=== PATIENT | male | born 1955 | race Caucasian/White ===

== ENCOUNTER 2017-03-23 10:23 | Inpatient (IN) | payer OTHER, BC ==
--- NOTE | 2017-03-23 11:07 | PDOC ---
History of Present Illness - General Chief Complaint: Wound Infection Stated Complaint: PCP ADMIT Time Seen by Provider: 03/23/17 11:07 Past History - Past Medical History Allergies/Adverse Reactions: Allergies Allergy/AdvReac Type Severity Reaction Status Date / Time Sulfa (Sulfonamide Allergy Intermediate Rash Verified 03/23/17 10:40 Antibiotics) Home Medications: Ambulatory Orders Oxycodone HCl/Acetaminophen [Percocet 5-325 mg Tablet] 2 combo PO HS PRN Liraglutide [Victoza -] 1.8 mg SQ HS 12/11/11 Furosemide [Lasix -] 80 mg PO BID@0600,1800 #0 tablet 12/14/11 Glipizide [Glipizide Xl] 10 mg PO BID 02/27/13 Allopurinol [Zyloprim -] 300 mg PO DAILY #0 tablet 03/10/13 Insulin Glargine,Hum.rec.anlog [Lantus Solostar PEN -] 80 unit SQ DAILY Levothyroxine [Synthroid -] 100 mcg PO DAILY 01/26/14 Potassium Chloride [K-Dur -] 10 meq PO BID 04/10/14 Rivaroxaban [Xarelto -] 20 mg PO DAILY 10/30/14 Clopidogrel Bisulfate [Plavix -] 75 mg PO DAILY 09/04/15 Atorvastatin Ca [Lipitor] 80 mg PO HS 09/05/15 Lisinopril 10 mg PO DAILY 09/05/15 Atenolol 100 mg PO BID 07/24/16 Metolazone 2.5 mg PO DAILY 07/24/16 Collagenase Clostridium Hist. [Santyl] 1 applic TP DAILY #90 oint...g. 11/20/16 Mupirocin Cream [Bactroban 2% Cream -] 1 applic TP DAILY #1 tube 11/20/16 Collagenase Clostridium Hist. [Santyl] 1 applic TP DAILY #90 oint...g. 03/15/17 Collagenase Clostridium Hist. [Santyl] 1 applic TP DAILY #90 oint...g. 03/15/17 Collagenase Clostridium Hist. [Santyl] 1 applic TP DAILY #90 oint...g. 03/15/17 Anemia: No Asthma: No Cancer: No Cardiac Disorders: Yes (a.fib) CVA: No COPD: No CHF: Yes DVT: Yes Dementia: No Diabetes: Yes GI Disorders: No Disorders: No HTN: Yes Hypercholesterolemia: Yes Liver Disease: No Seizures: No Thyroid Disease: Yes (hypo) Other medical history: sleep apnea - Surgical History Abdominal Surgery: No Appendectomy: No Cardiac Surgery: Yes (x 2 stents 07/2015) Cholecystectomy: No Lung Surgery: No Neurologic Surgery: No Orthopedic Surgery: Yes (RT MIDDLE TOE(EXTRA BONE) PULL OUT) - Immunization History Immunization Up to Date: Yes - Suicide/Smoking/Psychosocial Hx Smoking Status: No Smoking History: Former smoker Have you smoked in the past 12 months: No Number of Cigarettes Smoked Daily: 0 If you are a former smoker, when did you quit?: 1992 Information on smoking cessation initiated: No 'Breaking Loose' booklet given: 09/05/15 Hx Alcohol Use: No Drug/Substance Use Hx: No Substance Use Type: None Hx Substance Use Treatment: No *Physical Exam - Vital Signs Last Vital Signs Temp Pulse Resp BP Pulse Ox 97.5 F L 85 22 114/38 94 L 03/23/17 10:40 03/23/17 10:40 03/23/17 10:40 03/23/17 10:40 03/23/17 10:40 Heart Score/ECG Review - ECG Impressions Comment:: 03/23/17 18:24 Rate of 81 irregularly irregular - afib qtc [address] wave changes ED Treatment Course - LABORATORY CBC & Chemistry Diagram: 03/23/17 12:30 03/23/17 12:30 Medical Decision Making - Medical Decision Making 03/23/17 18:24 The patient was seen and evaluated in conjunction with TOM Lemus under my direct supervision, ancillary studies were reviewed. I agree with the plan as outlined by TOM Lemus. *DC/Admit/Observation/Transfer Diagnosis at time of Disposition: Venous insufficiency, Venous ulcer - Referrals - Patient Instructions - Post Discharge Activity
--- NOTE | 2017-03-23 11:51 | PDOC ---
History of Present Illness - General Chief Complaint: Wound Infection Stated Complaint: PCP ADMIT Time Seen by Provider: 03/23/17 11:07 History Source: Patient Exam Limitations: No Limitations - History of Present Illness Initial Comments: 03/23/17 11:48 61-year-old male with history of obesity, venous stasis ulcers, diabetes, kidney disease, and CHF was sent by Dr. Harvey infectious disease physician for IV antibiotics secondary to infection to the lower extremities secondary to chronic venous ulcers. Patient denies fever, chills chest pain, shortness of breath, or weakness. Patient states this all by Dr. Hudson for primary care and is pending a PICC line for long-term antibiotics. Patient receives wound care once a week with last visit being this past Wednesday. Timing/Duration: constant Severity: mild, moderate Associated Symptoms: reports: denies symptoms Past History - Travel Traveled outside of the country in the last 30 days: No - Past Medical History Allergies/Adverse Reactions: Allergies Allergy/AdvReac Type Severity Reaction Status Date / Time Sulfa (Sulfonamide Allergy Intermediate Rash Verified 03/23/17 10:40 Antibiotics) Home Medications: Ambulatory Orders Oxycodone HCl/Acetaminophen [Percocet 5-325 mg Tablet] 2 combo PO HS PRN Liraglutide [Victoza -] 1.8 mg SQ HS 12/11/11 Furosemide [Lasix -] 80 mg PO BID@0600,1800 #0 tablet 12/14/11 Glipizide [Glipizide Xl] 10 mg PO BID 02/27/13 Allopurinol [Zyloprim -] 300 mg PO DAILY #0 tablet 03/10/13 Insulin Glargine,Hum.rec.anlog [Lantus Solostar PEN -] 80 unit SQ DAILY Levothyroxine [Synthroid -] 100 mcg PO DAILY 01/26/14 Potassium Chloride [K-Dur -] 10 meq PO BID 04/10/14 Rivaroxaban [Xarelto -] 20 mg PO DAILY 10/30/14 Clopidogrel Bisulfate [Plavix -] 75 mg PO DAILY 09/04/15 Atorvastatin Ca [Lipitor] 80 mg PO HS 09/05/15 Lisinopril 10 mg PO DAILY 09/05/15 Atenolol 100 mg PO BID 07/24/16 Metolazone 2.5 mg PO DAILY 07/24/16 Collagenase Clostridium Hist. [Santyl] 1 applic TP DAILY #90 oint...g. 11/20/16 Mupirocin Cream [Bactroban 2% Cream -] 1 applic TP DAILY #1 tube 11/20/16 Collagenase Clostridium Hist. [Santyl] 1 applic TP DAILY #90 oint...g. 03/15/17 Collagenase Clostridium Hist. [Santyl] 1 applic TP DAILY #90 oint...g. 03/15/17 Collagenase Clostridium Hist. [Santyl] 1 applic TP DAILY #90 oint...g. 03/15/17 Anemia: No Asthma: No Cancer: No Cardiac Disorders: Yes (a.fib) CVA: No COPD: No CHF: Yes DVT: Yes Dementia: No Diabetes: Yes GI Disorders: No Disorders: No HTN: Yes Hypercholesterolemia: Yes Liver Disease: No Seizures: No Thyroid Disease: Yes (hypo) Other medical history: sleep apnea - Surgical History Abdominal Surgery: No Appendectomy: No Cardiac Surgery: Yes (x 2 stents 07/2015) Cholecystectomy: No Lung Surgery: No Neurologic Surgery: No Orthopedic Surgery: Yes (RT MIDDLE TOE(EXTRA BONE) PULL OUT) - Immunization History Immunization Up to Date: Yes - Suicide/Smoking/Psychosocial Hx Smoking Status: No Smoking History: Former smoker Have you smoked in the past 12 months: No Number of Cigarettes Smoked Daily: 0 If you are a former smoker, when did you quit?: 1992 Information on smoking cessation initiated: No 'Breaking Loose' booklet given: 09/05/15 Hx Alcohol Use: No Drug/Substance Use Hx: No Substance Use Type: None Hx Substance Use Treatment: No Patient Lives Alone: No Lives with/in: spouse/SO Review of Systems - Review of Systems Able to Perform ROS?: Yes Constitutional: No: Symptoms Reported Musculoskeletal: No: Symptoms Reported Integumentary: Yes: Change in Color Neurological: No: Symptoms reported *Physical Exam - Vital Signs Last Vital Signs Temp Pulse Resp BP Pulse Ox 97.5 F L 85 22 114/38 94 L 03/23/17 10:40 03/23/17 10:40 03/23/17 10:40 03/23/17 10:40 03/23/17 10:40 - Physical Exam General Appearance: Yes: Nourished, Appropriately Dressed. No: Apparent Distress Respiratory/Chest: positive: Lungs Clear, Normal Breath Sounds. negative: Respiratory Distress, Accessory Muscle Use Cardiovascular: positive: Regular Rhythm, Regular Rate. negative: Murmur Extremity: positive: Pedal Edema (nonpitting bilateral) Integumentary: positive: Other (patient refusing to remove bandages for assessment) Neurologic: positive: Normal Mood/Affect, Motor Strength 5/5 (ambulatory) ED Treatment Course - LABORATORY CBC & Chemistry Diagram: 03/23/17 12:30 03/23/17 12:30 Medical Decision Making - Medical Decision Making 03/23/17 11:53 Patient sent in for admission as per recommendations from infectious disease physician doctor Ryan. Patient had normal vomit vitals here in the emergency room with no other acute findings or complaints. Patient ordered for septic workup. I spoke to Dr. Davis who recommended Zosyn 3.375 mg. Awaiting callback from Dr. Hudosn 03/23/17 12:[address] Hudson and states admitted to [facility]. Consultation also placed for interventional radiologist for PICC line insertion. 03/23/17 13:30 Laboratory Tests 09/07/15 09/09/15 03/23/17 05:30 06:00 12:30 WBC 9.1 Hgb 12.3 Hct 39.5 Plt Count 219 D Neutrophils % 82.2 Sodium Potassium 4.7 Chloride Anion Gap BUN 67 H Creatinine 2.5 H 2.4 H Creat Clearance w eGFR Random Glucose Lactic Acid Calcium Albumin 03/23/17 03/23/17 12:30 12:40 WBC Hgb Hct Plt Count Neutrophils % Sodium 137 Potassium 6.0 H D Chloride 106 Anion Gap 6 L BUN 60 H Creatinine 2.6 H Creat Clearance w eGFR 25.14 Random Glucose 143 H Lactic Acid 1.5 Calcium 8.2 L Albumin 3.0 L Receive phone call from laboratory of potassium. Laboratory states slightly hemolyzed. Patient pending EKG. Patient ordered for BMP. *DC/Admit/Observation/Transfer Diagnosis at time of Disposition: Venous insufficiency, Venous ulcer - Discharge Dispostion Admit: Yes - Referrals - Patient Instructions - Post Discharge Activity
[2017-03-23] MEDS ORDERED: PIPERACILLIN/TAZOB 3.375 GM 3.375 GM in DEXTROSE 5%-WATER - 50 ML IVPB SCH (12:00)
[2017-03-23] MEDS ORDERED: PICC LINE 8 ML FLUSH PROTOCOL IVPUSH PRN (12:12)
--- NOTE | 2017-03-23 12:30 | HP ---
Admitting History and Physical - Admission Chief Complaint: 61 y.o M was sent from [facility] after being seen by Dr Gotti- vascular surgeon and ID consult-Dr Bales for IV antibiotics due to non-heling and worsening draining ulcers RLE. History of Present Illness: Morbid obesity. ASHLEY. Bilateral PE. Pulmonary HTN-CTEPH?. CHF-mostly diastolic. ASHD. STEMI in 2016 with MICHAEL x2 placed at [place]. Chronic A.Fib-on a/c-Xarelto/ASA now. Gout. 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 Chronic DVT Right thigh, Stasis ulcers, edema. Chronic wound right Ankle/dobbs-RX at [facility]-groing multiple organisms. 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 No: Ascites, Cancer Hepatobiliary: Yes: Cholelithiasis Renal/: Yes: Renal Inusuff Heme/Onc: Yes: Anemia Infectious Disease: Yes: Other (RLE cellulitis.) Psych: Yes: Depression. No: Addictions, Anxiety, Bipolar, Panic, Psychosis, Schizophrenia, Other Musculoskeletal: Yes: Chronic low back pain Rheumatology: Yes: Gout Endocrine: Yes: Diabetes Mellitus, Hypothyroidism - Past Surgical History Past Surgical History: Yes: Stent - Smoking History Smoking history: Former smoker Have you smoked in the past 12 months: No Aproximately how many cigarettes per day: 0 If you are a former smoker, when did you quit?: 1992 - Alcohol/Substance Use Hx Alcohol Use: No History of Substance Use: reports: None - Social History ADL: Independent History of Recent Travel: No Home Medications - Allergies Allergies/Adverse Reactions: Allergies Allergy/AdvReac Type Severity Reaction Status Date / Time Sulfa (Sulfonamide Allergy Intermediate Rash Verified 03/23/17 10:40 Antibiotics) - Home Medications Home Medications: Ambulatory Orders Oxycodone HCl/Acetaminophen [Percocet 5-325 mg Tablet] 2 combo PO HS PRN Liraglutide [Victoza -] 1.8 mg SQ HS 12/11/11 Furosemide [Lasix -] 80 mg PO BID@0600,1800 #0 tablet 12/14/11 Glipizide [Glipizide Xl] 10 mg PO BID 02/27/13 Allopurinol [Zyloprim -] 300 mg PO DAILY #0 tablet 03/10/13 Insulin Glargine,Hum.rec.anlog [Lantus Solostar PEN -] 80 unit SQ DAILY Levothyroxine [Synthroid -] 100 mcg PO DAILY 01/26/14 Potassium Chloride [K-Dur -] 10 meq PO BID 04/10/14 Rivaroxaban [Xarelto -] 20 mg PO DAILY 10/30/14 Clopidogrel Bisulfate [Plavix -] 75 mg PO DAILY 09/04/15 Atorvastatin Ca [Lipitor] 80 mg PO HS 09/05/15 Lisinopril 10 mg PO DAILY 09/05/15 Atenolol 100 mg PO BID 07/24/16 Metolazone 2.5 mg PO DAILY 07/24/16 Collagenase Clostridium Hist. [Santyl] 1 applic TP DAILY #90 oint...g. 11/20/16 Mupirocin Cream [Bactroban 2% Cream -] 1 applic TP DAILY #1 tube 11/20/16 Collagenase Clostridium Hist. [Santyl] 1 applic TP DAILY #90 oint...g. 03/15/17 Collagenase Clostridium Hist. [Santyl] 1 applic TP DAILY #90 oint...g. 03/15/17 Collagenase Clostridium Hist. [Santyl] 1 applic TP DAILY #90 oint...g. 03/15/17 Family Disease History - Family Disease History Family History: Unremarkable Review of Systems - Review of Systems Constitutional: denies: Chills, Diaphoresis, Fever, Lethargy, Loss of Appetite, Malaise, Night Sweats, Unintentional Wgt. Loss, Weakness Eyes: denies: Blind Spots, Blurred Vision, Double Vision, Eye Pain, Recent Change in Vision HENT: denies: Ear Pain, Hearing Loss, Mouth Swelling, Throat Pain Neck: denies: Decreased ROM, Lumps Cardiovascular: reports: Shortness of Breath. denies: Chest Pain, Edema Respiratory: reports: Exercise Intolerance, Snoring, SOB, SOB on Exertion. denies: Cough, Hemoptysis, Orthopnea, Wheezing Gastrointestinal: denies: Abdominal Pain, Bloating, Diarrhea, Indigestion, Melena, Nausea, Rectal Bleeding, Vomiting Blood Genitourinary: denies: Burning, Discharge, Dysuria Breasts: reports: No Symptoms Reported Musculoskeletal: reports: Back Pain, Extremity Pain (RLE) Integumentary: reports: Wound (RLE) Endocrine: reports: No Symptoms Hematology/Lymphatic: reports: No Symptoms Psychiatric: reports: No Symptoms Physical Examination Vital Signs: Vital Signs Temperature 97.5 F L 03/23/17 10:40 Pulse Rate 85 03/23/17 10:40 Respiratory Rate 22 03/23/17 10:40 Blood Pressure 114/38 03/23/17 10:40 O2 Sat by Pulse Oximetry (%) 94 L 03/23/17 10:40 Constitutional: Yes: No Distress, Anxious, Obese Eyes: Yes: Conjunctiva Clear, EOM Intact HENT: Yes: Atraumatic, Normocephalic. No: Drooling Neck: Yes: Supple, Trachea Midline. No: Decreased ROM, Lymphadenopathy Cardiovascular: Yes: Pulse Irregular, S1, S2, Other. No: JVD, Murmur Respiratory: Yes: Regular. No: Accessory Muscle Use Gastrointestinal: Yes: Normal Bowel Sounds, Soft, Abdomen, Obese. No: Ascites, Palpable Mass, Tenderness, Tenderness, Epigastrium, Vomiting ...Rectal Exam: Yes: Deferred Renal/: No: Anuria, Bladder Distention Breast(s): Yes: WNL. No: Dimpling, Discharge from Nipple, Mass, Nipple Inversion Extremities: No: Cold, Cyanosis Edema: Yes Edema: LLE: 2+, RLE: Trace Integumentary: Yes: Venous Stasis Changes (Extensive ulcers RLE) Neurological: Yes: WNL ...Motor Strength: WNL Psychiatric: Yes: WNL Imaging - Results Chest X-ray: Report Reviewed, Image Reviewed Problem List - Problems (1) Venous ulcer Assessment/Plan: Wound care consult and local care. Comression to RLE wounds IV Zosyn as per ID Code(s): I87.8 - OTHER SPECIFIED DISORDERS OF VEINS (2) Atrial fibrillation Code(s): I48.91 - UNSPECIFIED ATRIAL FIBRILLATION Qualifiers: Atrial fibrillation type: chronic Qualified Code(s): I48.2 - Chronic atrial fibrillation (3) CHF (congestive heart failure) Assessment/Plan: Continue Furosemide, Metholazone. UVALDO. Code(s): I50.9 - HEART FAILURE, UNSPECIFIED Qualifiers: Congestive heart failure type: diastolic Congestive heart failure chronicity: chronic Qualified Code(s): I50.32 - Chronic diastolic (congestive ) heart failure (4) Chronic atrial fibrillation Assessment/Plan: Continue Xarelto BAB for weight control Code(s): I48.2 - CHRONIC ATRIAL FIBRILLATION (5) DVT (deep venous thrombosis) Assessment/Plan: Continue Xarelto Code(s): I82.409 - ACUTE EMBOLISM AND THOMBOS UNSP DEEP VN UNSP LOWER EXTREMITY Qualifiers: DVT location: lower extremity Affected thrombotic vein of extremity: femoral Chronicity: chronic Laterality: right Qualified Code(s): I82.511 - Chronic embolism and thrombosis of right femoral vein
[2017-03-23 12:43] LABS: BASO % 0.5 % (0-2.0); EOS % 1.7 % (0-4.5); HEMATOCRIT 39.5 % (35.4-49); HEMOGLOBIN 12.3 GM/dL (11.7-16.9); MCH 30.3 pg (25.7-33.7); MCHC 31.1 g/dl (32.0-35.9); MEAN CELL VOLUME 97.5 fl (80-96); MEAN PLT VOLUME 8.4 fl (7.5-11.1); MONO % 5.6 % (3.8-10.2); NEUT % 82.2 % (42.8-82.8); PLATELET COUNT 219 K/MM3 (134-434); RBC 4.05 M/mm3 (4.00-5.60); WHITE BLOOD COUNT 9.1 K/mm3 (4.0-10.0)
[2017-03-23] MEDS ORDERED: PIPERACILLIN/TAZOB 3.375 GM 3.375 GM in DEXTROSE 5%-WATER - 100 ML IVPB ONE (12:52)
[2017-03-23 13:16] LABS: BILIRUBIN,TOTAL 0.5 mg/dL (0.2-1.0); BLOOD UREA NITROGEN 60 mg/dL (7-18); CALCIUM 8.2 mg/dL (8.5-10.1); CHLORIDE 106 mmol/L (98-107); CO2 25 mmol/L (21-32); CREATININE 2.6 mg/dL (0.7-1.3); GLUCOSE,RANDOM 143 mg/dL (74-106); SGPT/ALT 23 U/L (12-78); TOT PROT 7.7 g/dl (6.4-8.2)
[2017-03-23 13:17] LABS: ALK PHOS 105 U/L (45-117)
[2017-03-23 13:24] LABS: ANION GAP 6 (8-16); SODIUM 137 mmol/L (136-145)
[2017-03-23 13:28] LABS: SGOT/AST 28 U/L (15-37)
[2017-03-23] MEDS: INSULIN SLIDING SCALE (NOVOLOG) 1 VIAL SQ SCH ×2 (16:15→21:58)
--- NOTE | 2017-03-23 16:29 | CON.ID ---
Consult Consult Specialty:: infectious diseases Reason for Consultation:: wound infection - History of Present Illness Chief Complaint: non healing ulcer of the rt leg History of Present Illness: 61-year-old male with history of obesity, venous stasis ulcers, diabetes, kidney disease, and CHF admitted to the the hospital because of no healing venous ulcer of the legs which is infected Patient has received abx in the past and inspite of that the wounds is infected Patient denies fever, chills chest pain, shortness of breath, or weakness. 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 No: Ascites, Cancer Hepatobiliary: Yes: Cholelithiasis Renal/: Yes: Renal Inusuff Infectious Disease: Yes: Other (RLE cellulitis.) Psych: Yes: Depression. No: Addictions, Anxiety, Bipolar, Panic, Psychosis, Schizophrenia, Other Musculoskeletal: Yes: Chronic low back pain Rheumatology: Yes: Gout Endocrine: Yes: Diabetes Mellitus, Hypothyroidism - Past Surgical History Past Surgical History: Yes: Stent - Alcohol/Substance Use Hx Alcohol Use: No History of Substance Use: reports: None - Smoking History Smoking history: Former smoker Have you smoked in the past 12 months: No Aproximately how many cigarettes per day: 0 If you are a former smoker, when did you quit?: 1992 - Social History ADL: Independent History of Recent Travel: No Home Medications - Allergies Allergies/Adverse Reactions: Allergies Allergy/AdvReac Type Severity Reaction Status Date / Time Sulfa (Sulfonamide Allergy Intermediate Rash Verified 03/23/17 10:40 Antibiotics) - Home Medications Home Medications: Ambulatory Orders Oxycodone HCl/Acetaminophen [Percocet 5-325 mg Tablet] 2 combo PO HS PRN Furosemide [Lasix -] 80 mg PO BID@0600,1800 #0 tablet 12/14/11 Glipizide [Glipizide Xl] 10 mg PO BID 02/27/13 Insulin Glargine,Hum.rec.anlog [Lantus Solostar PEN -] 80 unit SQ DAILY Levothyroxine [Synthroid -] 100 mcg PO DAILY 01/26/14 Potassium Chloride [K-Dur -] 10 meq PO BID 04/10/14 Rivaroxaban [Xarelto -] 20 mg PO DAILY 10/30/14 Atorvastatin Ca [Lipitor] 80 mg PO HS 09/05/15 Lisinopril 10 mg PO DAILY 09/05/15 Atenolol 100 mg PO BID 07/24/16 Metolazone 2.5 mg PO DAILY 07/24/16 Mupirocin Cream [Bactroban 2% Cream -] 1 applic TP DAILY #1 tube 11/20/16 Review of Systems - Review of Systems Constitutional: reports: No Symptoms Eyes: reports: No Symptoms HENT: reports: No Symptoms Neck: reports: No Symptoms Cardiovascular: reports: No Symptoms Respiratory: reports: No Symptoms Gastrointestinal: reports: No Symptoms Genitourinary: reports: No Symptoms Musculoskeletal: reports: Extremity Pain Integumentary: reports: Wound (non healing infected wound) Neurological: reports: No Symptoms Endocrine: reports: No Symptoms Hematology/Lymphatic: reports: No Symptoms Psychiatric: reports: No Symptoms Physical Exam Vital Signs: Vital Signs Temperature 97.5 F L 03/23/17 10:40 Pulse Rate 85 03/23/17 10:40 Respiratory Rate 22 03/23/17 10:40 Blood Pressure 114/38 03/23/17 10:40 O2 Sat by Pulse Oximetry (%) 94 L 03/23/17 10:40 Constitutional: Yes: Well Nourished, Obese, Other Eyes: Yes: Conjunctiva Clear HENT: Yes: Atraumatic, Normocephalic Neck: Yes: Supple, Trachea Midline Cardiovascular: Yes: Pulse Irregular, S1, S2 Respiratory: Yes: Regular, Poor Air Entry Gastrointestinal: Yes: Normal Bowel Sounds, Soft Musculoskeletal: Yes: Other Extremities: Yes: Other Wound/Incision: Yes: Reddened, Bleeding, Other Neurological: Yes: Alert, Oriented Psychiatric: Yes: Alert, Oriented Labs: CBC, BMP 03/23/17 12:30 03/23/17 12:30 Imaging - Results Chest X-ray: Report Reviewed, Image Reviewed Assessment/Plan Problem List - Problems (1) Venous ulcer Code(s): I87.8 - OTHER SPECIFIED DISORDERS OF VEINS (2) Atrial fibrillation Code(s): I48.91 - UNSPECIFIED ATRIAL FIBRILLATION Qualifiers: Atrial fibrillation type: chronic Qualified Code(s): I48.2 - Chronic atrial fibrillation (3) CHF (congestive heart failure) Assessment/Plan: Continue Furosemide, Metholazone. UVALDO. Code(s): I50.9 - HEART FAILURE, UNSPECIFIED Qualifiers: Congestive heart failure type: diastolic Congestive heart failure chronicity: chronic Qualified Code(s): I50.32 - Chronic diastolic (congestive ) heart failure (4) Chronic atrial fibrillation Code(s): I48.2 - CHRONIC ATRIAL FIBRILLATION (5) DVT (deep venous thrombosis) Code(s): I82.409 - ACUTE EMBOLISM AND THOMBOS UNSP DEEP VN UNSP LOWER EXTREMITY Qualifiers: DVT location: lower extremity Affected thrombotic vein of extremity: femoral Chronicity: chronic Laterality: right Qualified Code(s): I82.511 - Chronic embolism and thrombosis of right femoral vein i have seen the cx which wer done recently plan will start patient on iv abx wound care elevation of the leg rest as per wound care
[2017-03-23] MEDS ORDERED: INSULIN (NOVOLOG) ASPART 100 UNITS/ML 10ML VIAL ONE (17:00)
[2017-03-23] MEDS ORDERED: FUROSEMIDE 40 MG TABLET (FP) ONE (17:22)
[2017-03-23] MEDS: PIPERACILLIN/TAZOB 2.25 GM 2.25 GM/50 ML BAG IVPB SCH (18:45)
[2017-03-23] MEDS ORDERED: SODIUM POLYSTYRENE SULFONATE 15 GM/60 ML BOTTLE PO ONE (20:00)
[2017-03-23] MEDS: FUROSEMIDE 40 MG TABLET (FP) PO SCH (20:15)
[2017-03-23] MEDS: ATORVASTATIN CA 80 MG TABLET (FP) PO SCH (21:29)
[2017-03-23 21:31] LABS: URINE APPEARANCE CLEAR; URINE BILIRUBIN NEGATIVE (NEGATIVE); URINE BLOOD NEGATIVE (NEGATIVE); URINE COLOR STRAW; URINE GLUCOSE (UA) NEGATIVE (NEGATIVE); URINE KETONE NEGATIVE (NEGATIVE); URINE LEUK ESTERASE NEGATIVE (NEGATIVE); URINE NITRITE NEGATIVE (NEGATIVE); URINE UROBILINOGEN NEGATIVE mg/dL (0.2-1.0)
[2017-03-23 21:32] LABS: URINE PROTEIN 1+ (NEGATIVE)
[2017-03-23 21:41] LABS: EPI CELLS RARE /HPF (FEW); URINE MUCUS RARE
[2017-03-23] MEDS: ATENOLOL 50 MG TABLET (FP) PO SCH (21:57)
[2017-03-23] MEDS: INSULIN DETEMIR 100 UNITS/ML MDV SQ SCH (21:58)
[2017-03-23] MEDS ORDERED: POTASSIUM CHLORIDE TABS 20 MEQ TABLET.ER (FP) PO SCH (22:00)
[2017-03-23] MEDS: LIRAGLUTIDE 0.6 MG/0.1 ML PEN.INJCTR SQ SCH (22:04)
[2017-03-23] MEDS: oxyCODONE HCL 5 MG TABLET PO PRN (22:08)
[2017-03-23] MEDS: ACETAMINOPHEN 325 MG TABLET (FP) PO PRN (22:11)
[2017-03-23 23:48] VITALS: BMI 60.6
[2017-03-24] MEDS: PIPERACILLIN/TAZOB 2.25 GM 2.25 GM/50 ML BAG IVPB SCH ×3 (01:19→18:23)
[2017-03-24] MEDS: INSULIN SLIDING SCALE (NOVOLOG) 1 VIAL SQ SCH ×4 (06:13→22:55)
[2017-03-24] MEDS: INSULIN DETEMIR 100 UNITS/ML MDV SQ SCH ×2 (06:15→22:58)
[2017-03-24] MEDS: LEVOTHYROXINE NA 100 MCG TABLET (FP) PO SCH (06:20)
[2017-03-24] MEDS: FUROSEMIDE 40 MG TABLET (FP) PO SCH ×2 (07:23→18:26)
[2017-03-24] MEDS ORDERED: PNEUMOC 13-VAL CONJ-DIP CRM/PF 0.5 ML DISP.SYRIN IM ONE ×2 (07:29→15:45)
--- NOTE | 2017-03-24 07:32 | PN ---
Progress Note, Physician Chief Complaint: NAD, had diarrhea last night after Kayexalate. History of Present Illness: Morbid obesity. ASHLEY. Bilateral PE. Pulmonary HTN-CTEPH?. CHF-mostly diastolic. ASHD. STEMI in 2016 with MICHAEL x2 placed at [place]. Chronic A.Fib-on a/c-Xarelto/ASA now. Gout. 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 Chronic DVT Right thigh, Stasis ulcers, edema. Chronic wound right Ankle/dobbs-RX at [facility]-groing multiple organisms. - Current Medication List Current Medications: Active Medications Acetaminophen (Tylenol -) 650 mg PO HS PRN PRN Reason: BILATERAL LOWER LEG PAIN Last Admin: 03/23/17 22:11 Dose: 650 mg Allopurinol (Zyloprim -) 300 mg PO DAILY NEIL Aspirin (Asa -) 81 mg PO DAILY NEIL Atenolol (Tenormin -) 100 mg PO BID [facility] Last Admin: 03/23/17 21:57 Dose: 100 mg Atorvastatin Calcium (Lipitor -) 80 mg PO HS [facility] Last Admin: 03/23/17 21:29 Dose: 80 mg Collagenase (Santyl -) 1 applic TP DAILY [facility] Furosemide (Lasix -) 80 mg PO BID@0600,1800 [facility] Last Admin: 03/24/17 07:23 Dose: 80 mg IV Flush (Picc Line Flush) 8 ml IVPUSH PRN PRN PRN Reason: Protocol Piperacillin/Tazobactam/Dextrose (Zosyn 2.25gm Ivpb (Premix)) 2.25 gm in 50 mls @ 100 mls/hr IVPB Q8H-IV NEIL PRN Reason: Protocol Last Admin: 03/24/17 01:19 Dose: 100 mls/hr Insulin Aspart (Novolog Vial Sliding Scale -) 1 vial SQ ACHS NEIL PRN Reason: Protocol Last Admin: 03/24/17 06:13 Dose: Not Given Insulin Detemir (Levemir Vial) 30 units SQ BID@0700,2200 [facility] Last Admin: 03/24/17 06:15 Dose: 30 units Levothyroxine Sodium (Synthroid -) 100 mcg PO ACBK [facility] Last Admin: 03/24/17 06:20 Dose: 100 mcg Liraglutide (Victoza -) 1.8 mg SQ HS [facility] Last Admin: 03/23/17 22:04 Dose: 1.8 mg Metolazone (Zaroxolyn -) 2.5 mg PO DAILY@1730 [facility] Mupirocin (Bactroban 2% Cream -) 1 applic TP DAILY [facility] Oxycodone HCl (Roxicodone -) 10 mg PO HS PRN PRN Reason: BILATERAL LOWER LEG PAIN Last Admin: 03/23/17 22:08 Dose: 10 mg Pneumococcal 13-Valent Conj Vacc (Prevnar 13 Syringe -) 0.5 ml IM .ONCE ONE Stop: 03/24/17 07:30 Rivaroxaban (Xarelto -) 20 mg PO DAILY@1730 [facility] - Objective Vital Signs: Vital Signs Temperature 98.3 F 03/24/17 06:00 Pulse Rate 74 03/24/17 06:00 Respiratory Rate 20 03/24/17 06:00 Blood Pressure 87/55 03/24/17 06:26 O2 Sat by Pulse Oximetry (%) 95 03/23/17 20:35 Constitutional: Yes: No Distress, Calm. No: Anxious Eyes: Yes: Conjunctiva Clear, EOM Intact HENT: Yes: Atraumatic, Normocephalic. No: Drooling Neck: Yes: Supple, Trachea Midline. No: Lymphadenopathy Cardiovascular: Yes: Pulse Irregular, Murmur, S1, S2. No: JVD Respiratory: Yes: Regular, CTA Bilaterally. No: Accessory Muscle Use Gastrointestinal: Yes: Normal Bowel Sounds, Soft, Abdomen, Obese. No: Ascites ...Rectal Exam: Yes: Deferred Genitourinary: No: Anuria Musculoskeletal: Yes: Back Pain Extremities: No: Calf Tenderness, Cold, Deformity Edema: Yes Edema: LLE: 2+, RLE: 3+ Peripheral Pulses WNL: No Integumentary: Yes: Venous Stasis Changes (Right LE extensive anterior and lateral dobbs ulceration with wheeping. B/L LE below the knee venous stasis changes) Neurological: Yes: Alert, Oriented. No: Aphasia, Asterixis, Lethargy, Loss of Sensation ...Motor Strength: WNL Psychiatric: Yes: WNL Labs: CBC, BMP 03/23/17 12:30 03/23/17 12:30 Problem List - Problems (1) Venous ulcer Assessment/Plan: Wound care consult and local care. UVALDO bandage for compression. Comression to RLE wounds IV Zosyn as per ID Code(s): I87.8 - OTHER SPECIFIED DISORDERS OF VEINS (2) Atrial fibrillation Code(s): I48.91 - UNSPECIFIED ATRIAL FIBRILLATION Qualifiers: Atrial fibrillation type: chronic Qualified Code(s): I48.2 - Chronic atrial fibrillation (3) CHF (congestive heart failure) Assessment/Plan: Continue Furosemide, Metholazone. UVALDO. Code(s): I50.9 - HEART FAILURE, UNSPECIFIED Qualifiers: Congestive heart failure type: diastolic Congestive heart failure chronicity: chronic Qualified Code(s): I50.32 - Chronic diastolic (congestive ) heart failure (4) Chronic atrial fibrillation Assessment/Plan: Continue Xarelto BAB for weight control Code(s): I48.2 - CHRONIC ATRIAL FIBRILLATION (5) DVT (deep venous thrombosis) Assessment/Plan: Continue Xarelto Code(s): I82.409 - ACUTE EMBOLISM AND THOMBOS UNSP DEEP VN UNSP LOWER EXTREMITY Qualifiers: DVT location: lower extremity Affected thrombotic vein of extremity: femoral Chronicity: chronic Laterality: right Qualified Code(s): I82.511 - Chronic embolism and thrombosis of right femoral vein
[2017-03-24 09:09] LABS: BASO % 0.5 % (0-2.0); EOS % 3.2 % (0-4.5); HEMATOCRIT 36.9 % (35.4-49); HEMOGLOBIN 11.5 GM/dL (11.7-16.9); MCH 30.5 pg (25.7-33.7); MCHC 31.3 g/dl (32.0-35.9); MEAN CELL VOLUME 97.4 fl (80-96); MEAN PLT VOLUME 8.4 fl (7.5-11.1); MONO % 8.1 % (3.8-10.2); NEUT % 72.2 % (42.8-82.8); PLATELET COUNT 191 K/MM3 (134-434); RBC 3.78 M/mm3 (4.00-5.60); RDW 16.5 % (11.9-15.9); WHITE BLOOD COUNT 8.2 K/mm3 (4.0-10.0)
[2017-03-24 09:16] LABS: ALBUMIN 2.8 g/dl (3.4-5.0); ANION GAP 12 (8-16); BILIRUBIN,TOTAL 0.5 mg/dL (0.2-1.0); BLOOD UREA NITROGEN 63 mg/dL (7-18); CALCIUM 8.6 mg/dL (8.5-10.1); CHLORIDE 106 mmol/L (98-107); CO2 24 mmol/L (21-32); CREATININE 2.6 mg/dL (0.7-1.3); GLUCOSE,RANDOM 84 mg/dL (74-106); MAGNESIUM 1.9 mg/dL (1.8-2.4); PHOSPHOROUS 3.7 mg/dL (2.5-4.9); POTASSIUM 4.4 mmol/L (3.5-5.1); SGOT/AST 9 U/L (15-37); SGPT/ALT 19 U/L (12-78); SODIUM 142 mmol/L (136-145); TOT PROT 7.1 g/dl (6.4-8.2)
[2017-03-24 09:17] LABS: ALK PHOS 93 U/L (45-117)
[2017-03-24] MEDS ORDERED: LISINOPRIL 10 MG TABLET (FP) PO SCH (10:00)
[2017-03-24] MEDS ORDERED: INSULIN GLARGINE HUM REC ANLOG 80 UNIT SQ SCH (10:00)
--- NOTE | 2017-03-24 10:17 | PN ---
Progress Note (short form) - Note Progress Note: WOUND CARE / VASCULAR SURGERY - Dr. Gotti Patient is very well know to our service. Seen by Dr Gotti last week for known non-healing/worsening of his chronic venous ulcers. Sent in or IV ABX and wound care. Cont with santyl dressing changes. Elevate legs while seated in chair. Dressing changes ordered Cont medical mangement. Light UVALDO compression dressing Above discussed with Dr. Gotti and agrees.
[2017-03-24] MEDS: ATENOLOL 50 MG TABLET (FP) PO SCH ×2 (10:45→22:56)
[2017-03-24] MEDS: ASPIRIN 81 MG CHEWABLE TABLETS PO SCH (10:45)
[2017-03-24] MEDS: ALLOPURINOL 300 MG TABLET (FP) PO SCH (10:46)
[2017-03-24] MEDS: COLLAGENASE CLOSTRIDIUM HIST. 30 GRAMS TUBE TP SCH (11:24)
[2017-03-24] MEDS: MUPIROCIN CA 2% TOPICAL CREAM 15 GM TUBE TP SCH (11:24)
--- NOTE | 2017-03-24 13:10 | EKG ---
Test Reason : Blood Pressure : / mmHG Vent. Rate : 081 BPM Atrial Rate : 096 BPM P-R Int : 000 ms QRS Dur : 094 ms QT Int : 404 ms P-R-T Axes : 000 071 -61 degrees QTc Int : 469 ms ATRIAL FIBRILLATION LOW VOLTAGE QRS NONSPECIFIC T WAVE ABNORMALITY PROLONGED QT ABNORMAL ECG WHEN COMPARED WITH ECG OF 05-SEP-2015 08:41, NONSPECIFIC T WAVE ABNORMALITY NOW EVIDENT IN LATERAL LEADS Confirmed by ASIA SORTO, LOLA ([id number]) on 03/24/2017 1:09:57 PM Referred By: Confirmed By:LOLA BETANCOURT MD
--- NOTE | 2017-03-24 15:56 | PN ---
Progress Note, Physician History of Present Illness: stable no new issues feels better in room - Current Medication List Current Medications: Active Medications Acetaminophen (Tylenol -) 650 mg PO HS PRN PRN Reason: BILATERAL LOWER LEG PAIN Last Admin: 03/23/17 22:11 Dose: 650 mg Allopurinol (Zyloprim -) 300 mg PO DAILY [facility] Last Admin: 03/24/17 10:46 Dose: 300 mg Aspirin (Asa -) 81 mg PO DAILY [facility] Last Admin: 03/24/17 10:45 Dose: 81 mg Atenolol (Tenormin -) 100 mg PO BID [facility] Last Admin: 03/24/17 10:45 Dose: 100 mg Atorvastatin Calcium (Lipitor -) 80 mg PO HS [facility] Last Admin: 03/23/17 21:29 Dose: 80 mg Collagenase (Santyl -) 1 applic TP DAILY [facility] Last Admin: 03/24/17 11:24 Dose: 1 applic Furosemide (Lasix -) 80 mg PO BID@0600,1800 [facility] Last Admin: 03/24/17 07:23 Dose: 80 mg IV Flush (Picc Line Flush) 8 ml IVPUSH PRN PRN PRN Reason: Protocol Piperacillin/Tazobactam/Dextrose (Zosyn 2.25gm Ivpb (Premix)) 2.25 gm in 50 mls @ 100 mls/hr IVPB Q8H-IV NEIL PRN Reason: Protocol Last Admin: 03/24/17 10:45 Dose: 100 mls/hr Insulin Aspart (Novolog Vial Sliding Scale -) 1 vial SQ ACHS NEIL PRN Reason: Protocol Last Admin: 03/24/17 11:14 Dose: Not Given Insulin Detemir (Levemir Vial) 30 units SQ BID@0700,2200 [facility] Last Admin: 03/24/17 06:15 Dose: 30 units Levothyroxine Sodium (Synthroid -) 100 mcg PO ACBK [facility] Last Admin: 03/24/17 06:20 Dose: 100 mcg Liraglutide (Victoza -) 1.8 mg SQ HS [facility] Last Admin: 03/23/17 22:04 Dose: 1.8 mg Metolazone (Zaroxolyn -) 2.5 mg PO DAILY@1730 [facility] Mupirocin (Bactroban 2% Cream -) 1 applic TP DAILY [facility] Last Admin: 03/24/17 11:24 Dose: 1 applic Oxycodone HCl (Roxicodone -) 10 mg PO HS PRN PRN Reason: BILATERAL LOWER LEG PAIN Last Admin: 03/23/17 22:08 Dose: 10 mg Rivaroxaban (Xarelto -) 20 mg PO DAILY@1730 [facility] - Objective Vital Signs: Vital Signs Temperature 97.3 F L 03/24/17 15:50 Pulse Rate 82 03/24/17 15:50 Respiratory Rate 18 03/24/17 15:50 Blood Pressure 118/67 03/24/17 15:50 O2 Sat by Pulse Oximetry (%) 95 03/23/17 20:35 Constitutional: Yes: No Distress, Calm Cardiovascular: Yes: Pulse Irregular, S1, S2 Respiratory: Yes: Regular Gastrointestinal: Yes: Normal Bowel Sounds, Soft Musculoskeletal: Yes: WNL Extremities: Yes: Other Wound/Incision: Yes: Dressing Dry and Intact Neurological: Yes: Alert, Oriented Psychiatric: Yes: Alert, Oriented Labs: CBC, BMP 03/24/17 07:10 03/24/17 07:10 Assessment/Plan Problem List - Problems (1) Venous ulcer Code(s): I87.8 - OTHER SPECIFIED DISORDERS OF VEINS (2) Atrial fibrillation Code(s): I48.91 - UNSPECIFIED ATRIAL FIBRILLATION Qualifiers: Atrial fibrillation type: chronic Qualified Code(s): I48.2 - Chronic atrial fibrillation (3) CHF (congestive heart failure) Assessment/Plan: Continue Furosemide, Metholazone. UVALDO. Code(s): I50.9 - HEART FAILURE, UNSPECIFIED Qualifiers: Congestive heart failure type: diastolic Congestive heart failure chronicity: chronic Qualified Code(s): I50.32 - Chronic diastolic (congestive ) heart failure (4) Chronic atrial fibrillation Code(s): I48.2 - CHRONIC ATRIAL FIBRILLATION (5) DVT (deep venous thrombosis) Code(s): I82.409 - ACUTE EMBOLISM AND THOMBOS UNSP DEEP VN UNSP LOWER EXTREMITY Qualifiers: DVT location: lower extremity Affected thrombotic vein of extremity: femoral Chronicity: chronic Laterality: right Qualified Code(s): I82.511 - Chronic embolism and thrombosis of right femoral vein i have seen the cx which wer done recently plan continue iv abx elevation of the leg wound care rest as per primary team
[2017-03-24] MEDS: METOLAZONE 2.5 MG TABLET (FP) PO SCH (16:54)
[2017-03-24] MEDS: RIVAROXABAN 20 MG TABLET PO SCH (16:55)
[2017-03-24] MEDS ORDERED: PT OWN MED DRAWER 7, Y5N ONE ×2 (22:30→22:34)
[2017-03-24] MEDS: ATORVASTATIN CA 80 MG TABLET (FP) PO SCH (22:56)
[2017-03-24] MEDS: LIRAGLUTIDE 0.6 MG/0.1 ML PEN.INJCTR SQ SCH (22:57)
[2017-03-25] MEDS ORDERED: PT OWN MED DRAWER 7, Y5N ONE ×3 (02:28→17:36)
[2017-03-25] MEDS: PIPERACILLIN/TAZOB 2.25 GM 2.25 GM/50 ML BAG IVPB SCH ×3 (02:36→17:39)
[2017-03-25] MEDS: FUROSEMIDE 40 MG TABLET (FP) PO SCH ×2 (06:11→18:29)
[2017-03-25] MEDS: INSULIN DETEMIR 100 UNITS/ML MDV SQ SCH ×2 (06:55→21:36)
[2017-03-25] MEDS: LEVOTHYROXINE NA 100 MCG TABLET (FP) PO SCH (06:55)
[2017-03-25] MEDS: INSULIN SLIDING SCALE (NOVOLOG) 1 VIAL SQ SCH ×4 (06:57→21:49)
[2017-03-25 08:32] LABS: CHLORIDE 103 mmol/L (98-107); POTASSIUM 4.4 mmol/L (3.5-5.1); SODIUM 138 mmol/L (136-145)
--- NOTE | 2017-03-25 08:39 | PN ---
Progress Note, Physician Chief Complaint: ID and vascular consults appreciated. K 4.4 Feels well, no new complaints History of Present Illness: Morbid obesity. ASHLEY. Bilateral PE. Pulmonary HTN-CTEPH?. CHF-mostly diastolic. ASHD. STEMI in 2016 with MICHAEL x2 placed at [place]. Chronic A.Fib-on a/c-Xarelto/ASA now. Gout. 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 Chronic DVT Right thigh, Stasis ulcers, edema. Chronic wound right Ankle/dobbs-RX at [facility]-groing multiple organisms. - Current Medication List Current Medications: Active Medications Acetaminophen (Tylenol -) 650 mg PO HS PRN PRN Reason: BILATERAL LOWER LEG PAIN Last Admin: 03/23/17 22:11 Dose: 650 mg Allopurinol (Zyloprim -) 300 mg PO DAILY [facility] Last Admin: 03/24/17 10:46 Dose: 300 mg Aspirin (Asa -) 81 mg PO DAILY [facility] Last Admin: 03/24/17 10:45 Dose: 81 mg Atenolol (Tenormin -) 100 mg PO BID [facility] Last Admin: 03/24/17 22:56 Dose: 100 mg Atorvastatin Calcium (Lipitor -) 80 mg PO HS [facility] Last Admin: 03/24/17 22:56 Dose: 80 mg Collagenase (Santyl -) 1 applic TP DAILY [facility] Last Admin: 03/24/17 11:24 Dose: 1 applic Furosemide (Lasix -) 80 mg PO BID@0600,1800 [facility] Last Admin: 03/25/17 06:11 Dose: 80 mg IV Flush (Picc Line Flush) 8 ml IVPUSH PRN PRN PRN Reason: Protocol Piperacillin/Tazobactam/Dextrose (Zosyn 2.25gm Ivpb (Premix)) 2.25 gm in 50 mls @ 100 mls/hr IVPB Q8H-IV NEIL PRN Reason: Protocol Last Admin: 03/25/17 02:36 Dose: 100 mls/hr Insulin Aspart (Novolog Vial Sliding Scale -) 1 vial SQ ACHS [facility] PRN Reason: Protocol Last Admin: 03/25/17 06:57 Dose: Not Given Insulin Detemir (Levemir Vial) 30 units SQ BID@0700,2200 [facility] Last Admin: 03/25/17 06:55 Dose: 30 units Levothyroxine Sodium (Synthroid -) 100 mcg PO ACBK [facility] Last Admin: 03/25/17 06:55 Dose: 100 mcg Liraglutide (Victoza -) 1.8 mg SQ HS [facility] Last Admin: 03/24/17 22:57 Dose: 1.8 mg Metolazone (Zaroxolyn -) 2.5 mg PO DAILY@1730 [facility] Last Admin: 03/24/17 16:54 Dose: 2.5 mg Mupirocin (Bactroban 2% Cream -) 1 applic TP DAILY [facility] Last Admin: 03/24/17 11:24 Dose: 1 applic Oxycodone HCl (Roxicodone -) 10 mg PO HS PRN PRN Reason: BILATERAL LOWER LEG PAIN Last Admin: 03/23/17 22:08 Dose: 10 mg Rivaroxaban (Xarelto -) 20 mg PO DAILY@1730 [facility] Last Admin: 03/24/17 16:55 Dose: 20 mg - Objective Vital Signs: Vital Signs Temperature 97.7 F 03/25/17 06:00 Pulse Rate 76 03/25/17 06:00 Respiratory Rate 20 03/25/17 06:00 Blood Pressure 119/79 03/25/17 06:00 O2 Sat by Pulse Oximetry (%) 94 L 03/24/17 21:00 Constitutional: Yes: No Distress, Calm Eyes: Yes: Conjunctiva Clear, EOM Intact HENT: Yes: Atraumatic, Normocephalic. No: Drooling, Epistaxis, Nasal Congestion , Pharyngeal Erythema Neck: Yes: Supple, Trachea Midline. No: Decreased ROM, Lymphadenopathy, Rigid, Tenderness, Thyromegaly Cardiovascular: Yes: Pulse Irregular, Murmur, S1, S2 Respiratory: Yes: Regular, CTA Bilaterally Gastrointestinal: Yes: Normal Bowel Sounds, Soft, Abdomen, Obese. No: Palpable Mass, Tenderness, Epigastrium, Tenderness, Rebound ...Rectal Exam: Yes: Deferred Genitourinary: No: Anuria, Bladder Distention Breast(s): Yes: WNL Musculoskeletal: Yes: WNL Extremities: No: Cold, Cyanosis Edema: Yes Edema: LLE: 2+, RLE: 2+ Peripheral Pulses WNL: No Integumentary: Yes: Venous Stasis Changes, Other (RLE ulcer) Neurological: Yes: WNL, Alert, Oriented. No: Aphasia, Asterixis, Ataxia, Dysarthria, Pre-Existing Deficit, Seizure, Tingling ...Motor Strength: WNL Psychiatric: Yes: WNL Labs: CBC, BMP 03/24/17 07:10 03/25/17 06:24 Laboratory Results - last 24 hr 03/24/17 03/24/17 03/24/17 07:10 07:10 11:09 WBC 8.2 RBC 3.78 L Hgb 11.5 L Hct 36.9 MCV 97.4 H MCH 30.5 MCHC 31.3 L RDW 16.5 H Plt Count 191 MPV 8.4 Neutrophils % 72.2 Lymphocytes % 16.0 D Monocytes % 8.1 Eosinophils % 3.2 D Basophils % 0.5 Sodium 142 Potassium 4.4 D Chloride 106 Carbon Dioxide 24 Anion Gap 12 BUN 63 H Creatinine 2.6 H Creat Clearance w eGFR 25.14 POC Glucometer 160 Random Glucose 84 D Calcium 8.6 Phosphorus 3.7 D Magnesium 1.9 Total Bilirubin 0.5 AST 9 L D ALT 19 Alkaline Phosphatase 93 Total Protein 7.1 Albumin 2.8 L 03/24/17 03/24/17 03/25/17 16:53 22:53 05:57 WBC RBC Hgb Hct MCV MCH MCHC RDW Plt Count MPV Neutrophils % Lymphocytes % Monocytes % Eosinophils % Basophils % Sodium Potassium Chloride Carbon Dioxide Anion Gap BUN Creatinine Creat Clearance w eGFR POC Glucometer 222 223 132 Random Glucose Calcium Phosphorus Magnesium Total Bilirubin AST ALT Alkaline Phosphatase Total Protein Albumin 03/25/17 06:24 WBC RBC Hgb Hct MCV MCH MCHC RDW Plt Count MPV Neutrophils % Lymphocytes % Monocytes % Eosinophils % Basophils % Sodium 138 Potassium 4.4 Chloride 103 Carbon Dioxide Anion Gap BUN Creatinine Creat Clearance w eGFR POC Glucometer Random Glucose Calcium Phosphorus Magnesium Total Bilirubin AST ALT Alkaline Phosphatase Total Protein Albumin Problem List - Problems (1) Venous ulcer Assessment/Plan: Wound care consult and local care. UVALDO bandage for compression. IV Zosyn as per ID Code(s): I87.8 - OTHER SPECIFIED DISORDERS OF VEINS (2) Atrial fibrillation Code(s): I48.91 - UNSPECIFIED ATRIAL FIBRILLATION Qualifiers: Atrial fibrillation type: chronic Qualified Code(s): I48.2 - Chronic atrial fibrillation (3) CHF (congestive heart failure) Assessment/Plan: Continue Furosemide, Metholazone. UVALDO. Code(s): I50.9 - HEART FAILURE, UNSPECIFIED Qualifiers: Congestive heart failure type: diastolic Congestive heart failure chronicity: chronic Qualified Code(s): I50.32 - Chronic diastolic (congestive ) heart failure (4) Chronic atrial fibrillation Assessment/Plan: Continue Xarelto BAB for weight control Code(s): I48.2 - CHRONIC ATRIAL FIBRILLATION (5) DVT (deep venous thrombosis) Assessment/Plan: Continue Xarelto Code(s): I82.409 - ACUTE EMBOLISM AND THOMBOS UNSP DEEP VN UNSP LOWER EXTREMITY Qualifiers: DVT location: lower extremity Affected thrombotic vein of extremity: femoral Chronicity: chronic Laterality: right Qualified Code(s): I82.511 - Chronic embolism and thrombosis of right femoral vein
[2017-03-25 08:45] LABS: ANION GAP 9 (8-16); BLOOD UREA NITROGEN 60 mg/dL (7-18); CALCIUM 8.3 mg/dL (8.5-10.1); CO2 26 mmol/L (21-32); CREATININE 2.6 mg/dL (0.7-1.3); GLUCOSE,RANDOM 121 mg/dL (74-106)
[2017-03-25] MEDS: ALLOPURINOL 300 MG TABLET (FP) PO SCH (10:05)
[2017-03-25] MEDS: ATENOLOL 50 MG TABLET (FP) PO SCH ×2 (10:05→21:38)
[2017-03-25] MEDS: ASPIRIN 81 MG CHEWABLE TABLETS PO SCH (10:06)
[2017-03-25] MEDS: COLLAGENASE CLOSTRIDIUM HIST. 30 GRAMS TUBE TP SCH (10:11)
[2017-03-25] MEDS: MUPIROCIN CA 2% TOPICAL CREAM 15 GM TUBE TP SCH (10:11)
--- NOTE | 2017-03-25 16:05 | PN ---
Progress Note (short form) - Note Progress Note: Vascular Surgery Pt seen and examined. Doing well. Legs getting better. Cont IV antibiotics. Santyl to all wounds mixed with bactroban. Angel serra DO
--- NOTE | 2017-03-25 17:05 | PN ---
Progress Note, Physician History of Present Illness: doing well no issues dressing removed wounds looked at - Current Medication List Current Medications: Active Medications Acetaminophen (Tylenol -) 650 mg PO HS PRN PRN Reason: BILATERAL LOWER LEG PAIN Last Admin: 03/23/17 22:11 Dose: 650 mg Allopurinol (Zyloprim -) 300 mg PO DAILY [facility] Last Admin: 03/25/17 10:05 Dose: 300 mg Aspirin (Asa -) 81 mg PO DAILY [facility] Last Admin: 03/25/17 10:06 Dose: 81 mg Atenolol (Tenormin -) 100 mg PO BID [facility] Last Admin: 03/25/17 10:05 Dose: 100 mg Atorvastatin Calcium (Lipitor -) 80 mg PO HS [facility] Last Admin: 03/24/17 22:56 Dose: 80 mg Collagenase (Santyl -) 1 applic TP DAILY [facility] Last Admin: 03/25/17 10:11 Dose: 1 applic Furosemide (Lasix -) 80 mg PO BID@0600,1800 [facility] Last Admin: 03/25/17 06:11 Dose: 80 mg Piperacillin/Tazobactam/Dextrose (Zosyn 2.25gm Ivpb (Premix)) 2.25 gm in 50 mls @ 100 mls/hr IVPB Q8H-IV NEIL PRN Reason: Protocol Last Admin: 03/25/17 10:05 Dose: 100 mls/hr Insulin Aspart (Novolog Vial Sliding Scale -) 1 vial SQ ACHS [facility] PRN Reason: Protocol Last Admin: 03/25/17 12:21 Dose: Not Given Insulin Detemir (Levemir Vial) 30 units SQ BID@0700,2200 [facility] Last Admin: 03/25/17 06:55 Dose: 30 units Levothyroxine Sodium (Synthroid -) 100 mcg PO ACBK [facility] Last Admin: 03/25/17 06:55 Dose: 100 mcg Liraglutide (Victoza -) 1.8 mg SQ HS [facility] Last Admin: 03/24/17 22:57 Dose: 1.8 mg Metolazone (Zaroxolyn -) 2.5 mg PO DAILY@1730 [facility] Last Admin: 03/24/17 16:54 Dose: 2.5 mg Mupirocin (Bactroban 2% Cream -) 1 applic TP DAILY [facility] Last Admin: 03/25/17 10:11 Dose: 1 applic Oxycodone HCl (Roxicodone -) 10 mg PO HS PRN PRN Reason: BILATERAL LOWER LEG PAIN Last Admin: 03/23/17 22:08 Dose: 10 mg Rivaroxaban (Xarelto -) 20 mg PO DAILY@1730 [facility] Last Admin: 03/24/17 16:55 Dose: 20 mg - Objective Vital Signs: Vital Signs Temperature 97.6 F 03/25/17 15:24 Pulse Rate 89 03/25/17 15:24 Respiratory Rate 18 03/25/17 15:24 Blood Pressure 100/53 03/25/17 15:24 O2 Sat by Pulse Oximetry (%) 94 L 03/25/17 11:21 Constitutional: Yes: No Distress, Calm, Obese Neck: Yes: Supple Cardiovascular: Yes: Regular Rate and Rhythm Respiratory: Yes: Regular, CTA Bilaterally Gastrointestinal: Yes: Normal Bowel Sounds, Soft Musculoskeletal: Yes: Other Extremities: Yes: Other Integumentary: Yes: Other Wound/Incision: Yes: Clean/Dry, Other (wound healing well) Neurological: Yes: Alert, Oriented Psychiatric: Yes: Alert, Oriented Labs: CBC, BMP 03/24/17 07:10 03/25/17 06:24 Assessment/Plan Problem List - Problems (1) Venous ulcer Code(s): I87.8 - OTHER SPECIFIED DISORDERS OF VEINS (2) Atrial fibrillation Code(s): I48.91 - UNSPECIFIED ATRIAL FIBRILLATION Qualifiers: Atrial fibrillation type: chronic Qualified Code(s): I48.2 - Chronic atrial fibrillation (3) CHF (congestive heart failure) Assessment/Plan: Continue Furosemide, Metholazone. UVALDO. Code(s): I50.9 - HEART FAILURE, UNSPECIFIED Qualifiers: Congestive heart failure type: diastolic Congestive heart failure chronicity: chronic Qualified Code(s): I50.32 - Chronic diastolic (congestive ) heart failure (4) Chronic atrial fibrillation Code(s): I48.2 - CHRONIC ATRIAL FIBRILLATION (5) DVT (deep venous thrombosis) Code(s): I82.409 - ACUTE EMBOLISM AND THOMBOS UNSP DEEP VN UNSP LOWER EXTREMITY Qualifiers: DVT location: lower extremity Affected thrombotic vein of extremity: femoral Chronicity: chronic Laterality: right Qualified Code(s): I82.511 - Chronic embolism and thrombosis of right femoral vein i have seen the cx which wer done recently plan continue iv abx elevation of the leg wound care rest as per primary team improving
[2017-03-25] MEDS: METOLAZONE 2.5 MG TABLET (FP) PO SCH (17:39)
[2017-03-25] MEDS: RIVAROXABAN 20 MG TABLET PO SCH (17:39)
[2017-03-25] MEDS: oxyCODONE HCL 5 MG TABLET PO PRN (21:31)
[2017-03-25] MEDS: ACETAMINOPHEN 325 MG TABLET (FP) PO PRN (21:31)
[2017-03-25] MEDS: LIRAGLUTIDE 0.6 MG/0.1 ML PEN.INJCTR SQ SCH (21:37)
[2017-03-25] MEDS: ATORVASTATIN CA 80 MG TABLET (FP) PO SCH (21:38)
[2017-03-25] MEDS: NYSTATIN 100,000 UNIT/GM TOPICAL CREAM 15 GM TUBE TP SCH (21:38)
[2017-03-26] MEDS: PIPERACILLIN/TAZOB 2.25 GM 2.25 GM/50 ML BAG IVPB SCH ×3 (03:09→17:44)
[2017-03-26] MEDS: FUROSEMIDE 40 MG TABLET (FP) PO SCH ×2 (06:49→19:04)
[2017-03-26] MEDS: LEVOTHYROXINE NA 100 MCG TABLET (FP) PO SCH (06:49)
[2017-03-26] MEDS: INSULIN SLIDING SCALE (NOVOLOG) 1 VIAL SQ SCH ×4 (06:50→22:16)
[2017-03-26] MEDS: INSULIN DETEMIR 100 UNITS/ML MDV SQ SCH ×2 (06:50→22:01)
--- NOTE | 2017-03-26 09:37 | PN ---
Progress Note, Physician Chief Complaint: comfortable, NAD History of Present Illness: Morbid obesity. ASHLEY. Bilateral PE. Pulmonary HTN-CTEPH?. CHF-mostly diastolic. ASHD. STEMI in 2016 with MICHAEL x2 placed at [place]. Chronic A.Fib-on a/c-Xarelto/ASA now. Gout. 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 Chronic DVT Right thigh, Stasis ulcers, edema. Chronic wound right Ankle/dobbs-RX at [facility]-groing multiple organisms. - Current Medication List Current Medications: Active Medications Acetaminophen (Tylenol -) 650 mg PO HS PRN PRN Reason: BILATERAL LOWER LEG PAIN Last Admin: 03/25/17 21:31 Dose: 650 mg Allopurinol (Zyloprim -) 300 mg PO DAILY [facility] Last Admin: 03/25/17 10:05 Dose: 300 mg Aspirin (Asa -) 81 mg PO DAILY [facility] Last Admin: 03/25/17 10:06 Dose: 81 mg Atenolol (Tenormin -) 100 mg PO BID [facility] Last Admin: 03/25/17 21:38 Dose: 100 mg Atorvastatin Calcium (Lipitor -) 80 mg PO HS [facility] Last Admin: 03/25/17 21:38 Dose: 80 mg Collagenase (Santyl -) 1 applic TP DAILY [facility] Last Admin: 03/25/17 10:11 Dose: 1 applic Furosemide (Lasix -) 80 mg PO BID@0600,1800 [facility] Last Admin: 03/26/17 06:49 Dose: 80 mg Piperacillin/Tazobactam/Dextrose (Zosyn 2.25gm Ivpb (Premix)) 2.25 gm in 50 mls @ 100 mls/hr IVPB Q8H-IV NEIL PRN Reason: Protocol Last Admin: 03/26/17 03:09 Dose: 100 mls/hr Insulin Aspart (Novolog Vial Sliding Scale -) 1 vial SQ ACHS [facility] PRN Reason: Protocol Last Admin: 03/26/17 06:50 Dose: Not Given Insulin Detemir (Levemir Vial) 30 units SQ BID@0700,2200 [facility] Last Admin: 03/26/17 06:50 Dose: 30 unit Levothyroxine Sodium (Synthroid -) 100 mcg PO ACBK [facility] Last Admin: 03/26/17 06:49 Dose: 100 mcg Liraglutide (Victoza -) 1.8 mg SQ HS [facility] Last Admin: 03/25/17 21:37 Dose: 1.8 mg Metolazone (Zaroxolyn -) 2.5 mg PO DAILY@1730 [facility] Last Admin: 03/25/17 17:39 Dose: 2.5 mg Mupirocin (Bactroban 2% Cream -) 1 applic TP DAILY [facility] Last Admin: 03/25/17 10:11 Dose: 1 applic Nystatin (Mycostatin Cream -) 1 applic TP BID [facility] Last Admin: 03/25/17 21:38 Dose: 1 applic Oxycodone HCl (Roxicodone -) 10 mg PO HS PRN PRN Reason: BILATERAL LOWER LEG PAIN Last Admin: 03/25/17 21:31 Dose: 10 mg Rivaroxaban (Xarelto -) 20 mg PO DAILY@1729 [facility] Last Admin: 03/25/17 17:39 Dose: 20 mg - Objective Vital Signs: Vital Signs Temperature 97.4 F L 03/25/17 18:00 Pulse Rate 98 H 03/25/17 22:00 Respiratory Rate 18 03/25/17 22:00 Blood Pressure 128/80 03/25/17 22:00 O2 Sat by Pulse Oximetry (%) 90 L 03/25/17 21:00 Constitutional: Yes: No Distress, Calm Eyes: Yes: Conjunctiva Clear, EOM Intact HENT: Yes: Atraumatic, Normocephalic, Other Neck: Yes: Supple Cardiovascular: Yes: Pulse Irregular Respiratory: Yes: Regular, CTA Bilaterally, On Nasal O2. No: Accessory Muscle Use, Bradypnea, Cough, Diminished Gastrointestinal: Yes: Normal Bowel Sounds, Abdomen, Obese ...Rectal Exam: Yes: Deferred Genitourinary: No: Anuria, Bladder Distention Breast(s): Yes: WNL Musculoskeletal: Yes: WNL Extremities: Yes: Cyanosis. No: Cool Edema: Yes Edema: LLE: 2+, RLE: 2+ Peripheral Pulses WNL: No Integumentary: Yes: Venous Stasis Changes Neurological: Yes: Alert, Oriented. No: Aphasia ...Motor Strength: WNL Psychiatric: Yes: WNL Labs: CBC, BMP 03/24/17 07:10 03/25/17 06:24 Problem List - Problems (1) Venous ulcer Assessment/Plan: Wound care consult and local care. UVALDO bandage for compression. IV Zosyn as per ID Code(s): I87.8 - OTHER SPECIFIED DISORDERS OF VEINS (2) Atrial fibrillation Code(s): I48.91 - UNSPECIFIED ATRIAL FIBRILLATION Qualifiers: Atrial fibrillation type: chronic Qualified Code(s): I48.2 - Chronic atrial fibrillation (3) CHF (congestive heart failure) Assessment/Plan: Continue Furosemide, Metholazone. UVALDO. Code(s): I50.9 - HEART FAILURE, UNSPECIFIED Qualifiers: Congestive heart failure type: diastolic Congestive heart failure chronicity: chronic Qualified Code(s): I50.32 - Chronic diastolic (congestive ) heart failure (4) Chronic atrial fibrillation Assessment/Plan: Continue Xarelto BAB for weight control Code(s): I48.2 - CHRONIC ATRIAL FIBRILLATION (5) DVT (deep venous thrombosis) Assessment/Plan: Continue Xarelto Code(s): I82.409 - ACUTE EMBOLISM AND THOMBOS UNSP DEEP VN UNSP LOWER EXTREMITY Qualifiers: DVT location: lower extremity Affected thrombotic vein of extremity: femoral Chronicity: chronic Laterality: right Qualified Code(s): I82.511 - Chronic embolism and thrombosis of right femoral vein
--- NOTE | 2017-03-26 09:56 | PN ---
Progress Note, Physician History of Present Illness: doing well no complaints multiple medical issues - Current Medication List Current Medications: Active Medications Acetaminophen (Tylenol -) 650 mg PO HS PRN PRN Reason: BILATERAL LOWER LEG PAIN Last Admin: 03/25/17 21:31 Dose: 650 mg Allopurinol (Zyloprim -) 300 mg PO DAILY [facility] Last Admin: 03/25/17 10:05 Dose: 300 mg Aspirin (Asa -) 81 mg PO DAILY [facility] Last Admin: 03/25/17 10:06 Dose: 81 mg Atenolol (Tenormin -) 100 mg PO BID [facility] Last Admin: 03/25/17 21:38 Dose: 100 mg Atorvastatin Calcium (Lipitor -) 80 mg PO HS [facility] Last Admin: 03/25/17 21:38 Dose: 80 mg Collagenase (Santyl -) 1 applic TP DAILY [facility] Last Admin: 03/25/17 10:11 Dose: 1 applic Furosemide (Lasix -) 80 mg PO BID@0600,1800 [facility] Last Admin: 03/26/17 06:49 Dose: 80 mg Piperacillin/Tazobactam/Dextrose (Zosyn 2.25gm Ivpb (Premix)) 2.25 gm in 50 mls @ 100 mls/hr IVPB Q8H-IV NEIL PRN Reason: Protocol Last Admin: 03/26/17 03:09 Dose: 100 mls/hr Insulin Aspart (Novolog Vial Sliding Scale -) 1 vial SQ ACHS [facility] PRN Reason: Protocol Last Admin: 03/26/17 06:50 Dose: Not Given Insulin Detemir (Levemir Vial) 30 units SQ BID@0700,2200 [facility] Last Admin: 03/26/17 06:50 Dose: 30 unit Levothyroxine Sodium (Synthroid -) 100 mcg PO ACBK [facility] Last Admin: 03/26/17 06:49 Dose: 100 mcg Liraglutide (Victoza -) 1.8 mg SQ HS [facility] Last Admin: 03/25/17 21:37 Dose: 1.8 mg Metolazone (Zaroxolyn -) 2.5 mg PO DAILY@1730 [facility] Last Admin: 03/25/17 17:39 Dose: 2.5 mg Mupirocin (Bactroban 2% Cream -) 1 applic TP DAILY [facility] Last Admin: 03/25/17 10:11 Dose: 1 applic Nystatin (Mycostatin Cream -) 1 applic TP BID [facility] Last Admin: 03/25/17 21:38 Dose: 1 applic Oxycodone HCl (Roxicodone -) 10 mg PO HS PRN PRN Reason: BILATERAL LOWER LEG PAIN Last Admin: 03/25/17 21:31 Dose: 10 mg Rivaroxaban (Xarelto -) 20 mg PO DAILY@1730 [facility] Last Admin: 03/25/17 17:39 Dose: 20 mg - Objective Vital Signs: Vital Signs Temperature 97.4 F L 03/25/17 18:00 Pulse Rate 98 H 03/25/17 22:00 Respiratory Rate 18 03/25/17 22:00 Blood Pressure 128/80 03/25/17 22:00 O2 Sat by Pulse Oximetry (%) 90 L 03/25/17 21:00 Constitutional: Yes: No Distress, Calm Cardiovascular: Yes: Pulse Irregular, S1, S2 Respiratory: Yes: Regular, CTA Bilaterally Gastrointestinal: Yes: Normal Bowel Sounds, Soft Musculoskeletal: Yes: Other Extremities: Yes: Other Integumentary: Yes: Onychomycosis, Venous Stasis Changes Wound/Incision: Yes: Dressing Dry and Intact Neurological: Yes: Alert, Oriented Psychiatric: Yes: Alert, Oriented Labs: CBC, BMP 03/24/17 07:10 03/25/17 06:24 Assessment/Plan Problem List - Problems (1) Venous ulcer Code(s): I87.8 - OTHER SPECIFIED DISORDERS OF VEINS (2) Atrial fibrillation Code(s): I48.91 - UNSPECIFIED ATRIAL FIBRILLATION Qualifiers: Atrial fibrillation type: chronic Qualified Code(s): I48.2 - Chronic atrial fibrillation (3) CHF (congestive heart failure) Assessment/Plan: Continue Furosemide, Metholazone. UVALDO. Code(s): I50.9 - HEART FAILURE, UNSPECIFIED Qualifiers: Congestive heart failure type: diastolic Congestive heart failure chronicity: chronic Qualified Code(s): I50.32 - Chronic diastolic (congestive ) heart failure (4) Chronic atrial fibrillation Code(s): I48.2 - CHRONIC ATRIAL FIBRILLATION (5) DVT (deep venous thrombosis) Code(s): I82.409 - ACUTE EMBOLISM AND THOMBOS UNSP DEEP VN UNSP LOWER EXTREMITY Qualifiers: DVT location: lower extremity Affected thrombotic vein of extremity: femoral Chronicity: chronic Laterality: right Qualified Code(s): I82.511 - Chronic embolism and thrombosis of right femoral vein plan continue iv abx elevation of the leg wound care rest as per primary team improving
[2017-03-26] MEDS: ATENOLOL 50 MG TABLET (FP) PO SCH (11:18)
[2017-03-26] MEDS: ALLOPURINOL 300 MG TABLET (FP) PO SCH (11:19)
[2017-03-26] MEDS: ASPIRIN 81 MG CHEWABLE TABLETS PO SCH (11:19)
[2017-03-26] MEDS: MUPIROCIN CA 2% TOPICAL CREAM 15 GM TUBE TP SCH (17:43)
[2017-03-26] MEDS: NYSTATIN 100,000 UNIT/GM TOPICAL CREAM 15 GM TUBE TP SCH ×2 (17:43→22:02)
[2017-03-26] MEDS: COLLAGENASE CLOSTRIDIUM HIST. 30 GRAMS TUBE TP SCH (17:43)
[2017-03-26] MEDS: METOLAZONE 2.5 MG TABLET (FP) PO SCH (17:47)
[2017-03-26] MEDS: RIVAROXABAN 20 MG TABLET PO SCH (17:47)
[2017-03-26] MEDS ORDERED: PT OWN MED DRAWER 7, Y5N ONE ×3 (19:15→22:12)
[2017-03-26] MEDS: ATORVASTATIN CA 80 MG TABLET (FP) PO SCH (21:30)
[2017-03-26] MEDS: oxyCODONE HCL 5 MG TABLET PO PRN (22:00)
[2017-03-26] MEDS: LIRAGLUTIDE 0.6 MG/0.1 ML PEN.INJCTR SQ SCH (22:01)
[2017-03-26] MEDS: ACETAMINOPHEN 325 MG TABLET (FP) PO PRN (22:17)
[2017-03-27] MEDS: ATENOLOL 50 MG TABLET (FP) PO SCH ×3 (01:11→22:11)
[2017-03-27] MEDS: PIPERACILLIN/TAZOB 2.25 GM 2.25 GM/50 ML BAG IVPB SCH ×3 (01:19→17:52)
[2017-03-27] MEDS: FUROSEMIDE 40 MG TABLET (FP) PO SCH ×2 (06:39→17:51)
[2017-03-27] MEDS: LEVOTHYROXINE NA 100 MCG TABLET (FP) PO SCH (06:40)
[2017-03-27] MEDS: INSULIN SLIDING SCALE (NOVOLOG) 1 VIAL SQ SCH ×4 (06:48→22:16)
[2017-03-27] MEDS: INSULIN DETEMIR 100 UNITS/ML MDV SQ SCH ×2 (06:48→22:11)
[2017-03-27 08:12] LABS: ANION GAP 10 (8-16); BLOOD UREA NITROGEN 67 mg/dL (7-18); CALCIUM 8.8 mg/dL (8.5-10.1); CHLORIDE 98 mmol/L (98-107); CO2 27 mmol/L (21-32); CREATININE 2.6 mg/dL (0.7-1.3); GLUCOSE,RANDOM 131 mg/dL (74-106); POTASSIUM 3.8 mmol/L (3.5-5.1); SODIUM 135 mmol/L (136-145)
--- NOTE | 2017-03-27 08:46 | PN ---
Progress Note, Physician Chief Complaint: c/o right LE discomfort. History of Present Illness: Morbid obesity. ASHLEY. Bilateral PE. Pulmonary HTN-CTEPH?. CHF-mostly diastolic. ASHD. STEMI in 2016 with MICHAEL x2 placed at [place]. Chronic A.Fib-on a/c-Xarelto/ASA now. Gout. 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 Chronic DVT Right thigh, Stasis ulcers, edema. Chronic wound right Ankle/dobbs-RX at [facility]-groing multiple organisms. - Current Medication List Current Medications: Active Medications Acetaminophen (Tylenol -) 650 mg PO HS PRN PRN Reason: BILATERAL LOWER LEG PAIN Last Admin: 03/26/17 22:17 Dose: 650 mg Allopurinol (Zyloprim -) 300 mg PO DAILY [facility] Last Admin: 03/26/17 11:19 Dose: 300 mg Aspirin (Asa -) 81 mg PO DAILY [facility] Last Admin: 03/26/17 11:19 Dose: 81 mg Atenolol (Tenormin -) 100 mg PO BID [facility] Last Admin: 03/27/17 01:11 Dose: Not Given Atorvastatin Calcium (Lipitor -) 80 mg PO HS [facility] Last Admin: 03/26/17 21:30 Dose: 80 mg Collagenase (Santyl -) 1 applic TP DAILY [facility] Last Admin: 03/26/17 17:43 Dose: 1 applic Furosemide (Lasix -) 80 mg PO BID@0600,1800 [facility] Last Admin: 03/27/17 06:39 Dose: 80 mg Piperacillin/Tazobactam/Dextrose (Zosyn 2.25gm Ivpb (Premix)) 2.25 gm in 50 mls @ 100 mls/hr IVPB Q8H-IV NEIL PRN Reason: Protocol Last Admin: 03/27/17 01:19 Dose: 100 mls/hr Insulin Aspart (Novolog Vial Sliding Scale -) 1 vial SQ ACHS [facility] PRN Reason: Protocol Last Admin: 03/27/17 06:48 Dose: Not Given Insulin Detemir (Levemir Vial) 30 units SQ BID@0700,2200 [facility] Last Admin: 03/27/17 06:48 Dose: 30 unit Levothyroxine Sodium (Synthroid -) 100 mcg PO ACBK [facility] Last Admin: 03/27/17 06:40 Dose: 100 mcg Liraglutide (Victoza -) 1.8 mg SQ HS [facility] Last Admin: 03/26/17 22:01 Dose: 1.8 mg Metolazone (Zaroxolyn -) 2.5 mg PO DAILY@173 [facility] Last Admin: 03/26/17 17:47 Dose: 2.5 mg Mupirocin (Bactroban 2% Cream -) 1 applic TP DAILY [facility] Last Admin: 03/26/17 17:43 Dose: 1 applic Nystatin (Mycostatin Cream -) 1 applic TP BID [facility] Last Admin: 03/26/17 22:02 Dose: 1 applic Oxycodone HCl (Roxicodone -) 10 mg PO HS PRN PRN Reason: BILATERAL LOWER LEG PAIN Last Admin: 03/26/17 22:00 Dose: 10 mg Rivaroxaban (Xarelto -) 20 mg PO DAILY@1729 [facility] Last Admin: 03/26/17 17:47 Dose: 20 mg - Objective Vital Signs: Vital Signs Temperature 97.2 F L 03/26/17 22:00 Pulse Rate 65 03/26/17 22:00 Respiratory Rate 20 03/26/17 22:00 Blood Pressure 93/50 03/26/17 22:00 O2 Sat by Pulse Oximetry (%) 90 L 03/25/17 21:00 Constitutional: Yes: No Distress, Calm Eyes: Yes: Conjunctiva Clear, EOM Intact HENT: Yes: Atraumatic, Normocephalic Neck: Yes: Supple, Trachea Midline Cardiovascular: Yes: Pulse Irregular Respiratory: Yes: Regular, CTA Bilaterally Gastrointestinal: Yes: Normal Bowel Sounds ...Rectal Exam: Yes: Deferred Genitourinary: Yes: Anuria Breast(s): Yes: WNL Musculoskeletal: Yes: WNL. No: Back Pain Extremities: Yes: WNL. No: Amputation, Calf Tenderness Edema: Yes Edema: LLE: 2+, RLE: 2+ Wound/Incision: Yes: Dressing Dry and Intact Neurological: Yes: WNL ...Motor Strength: WNL Psychiatric: Yes: WNL Labs: CBC, BMP 03/24/17 07:10 03/27/17 07:00 Problem List - Problems (1) Venous ulcer Assessment/Plan: Wound care consult and local care. UVALDO bandage for compression. IV Zosyn as per ID Code(s): I87.8 - OTHER SPECIFIED DISORDERS OF VEINS (2) Atrial fibrillation Code(s): I48.91 - UNSPECIFIED ATRIAL FIBRILLATION Qualifiers: Atrial fibrillation type: chronic Qualified Code(s): I48.2 - Chronic atrial fibrillation (3) CHF (congestive heart failure) Assessment/Plan: Continue Furosemide, Metholazone. UVALDO. Code(s): I50.9 - HEART FAILURE, UNSPECIFIED Qualifiers: Congestive heart failure type: diastolic Congestive heart failure chronicity: chronic Qualified Code(s): I50.32 - Chronic diastolic (congestive ) heart failure (4) Chronic atrial fibrillation Assessment/Plan: Continue Xarelto BAB for weight control Code(s): I48.2 - CHRONIC ATRIAL FIBRILLATION (5) DVT (deep venous thrombosis) Assessment/Plan: Continue Xarelto Code(s): I82.409 - ACUTE EMBOLISM AND THOMBOS UNSP DEEP VN UNSP LOWER EXTREMITY Qualifiers: DVT location: lower extremity Affected thrombotic vein of extremity: femoral Chronicity: chronic Laterality: right Qualified Code(s): I82.511 - Chronic embolism and thrombosis of right femoral vein
[2017-03-27] MEDS ORDERED: PT OWN MED DRAWER 7, Y5N ONE ×3 (09:44→17:52)
[2017-03-27] MEDS: ALLOPURINOL 300 MG TABLET (FP) PO SCH (09:51)
[2017-03-27] MEDS: ASPIRIN 81 MG CHEWABLE TABLETS PO SCH (09:51)
[2017-03-27] MEDS: NYSTATIN 100,000 UNIT/GM TOPICAL CREAM 15 GM TUBE TP SCH ×2 (09:52→22:22)
[2017-03-27] MEDS: MUPIROCIN CA 2% TOPICAL CREAM 15 GM TUBE TP SCH (09:52)
[2017-03-27] MEDS: COLLAGENASE CLOSTRIDIUM HIST. 30 GRAMS TUBE TP SCH (09:52)
--- NOTE | 2017-03-27 13:28 | PN ---
Progress Note, Physician History of Present Illness: doing well no new issues - Current Medication List Current Medications: Active Medications Acetaminophen (Tylenol -) 650 mg PO HS PRN PRN Reason: BILATERAL LOWER LEG PAIN Last Admin: 03/26/17 22:17 Dose: 650 mg Allopurinol (Zyloprim -) 300 mg PO DAILY [facility] Last Admin: 03/27/17 09:51 Dose: 300 mg Aspirin (Asa -) 81 mg PO DAILY [facility] Last Admin: 03/27/17 09:51 Dose: 81 mg Atenolol (Tenormin -) 100 mg PO BID [facility] Last Admin: 03/27/17 09:51 Dose: 100 mg Atorvastatin Calcium (Lipitor -) 80 mg PO HS [facility] Last Admin: 03/26/17 21:30 Dose: 80 mg Collagenase (Santyl -) 1 applic TP DAILY [facility] Last Admin: 03/27/17 09:52 Dose: 1 applic Furosemide (Lasix -) 80 mg PO BID@0600,1800 [facility] Last Admin: 03/27/17 06:39 Dose: 80 mg Piperacillin/Tazobactam/Dextrose (Zosyn 2.25gm Ivpb (Premix)) 2.25 gm in 50 mls @ 100 mls/hr IVPB Q8H-IV NEIL PRN Reason: Protocol Last Admin: 03/27/17 09:51 Dose: 100 mls/hr Insulin Aspart (Novolog Vial Sliding Scale -) 1 vial SQ ACHS [facility] PRN Reason: Protocol Last Admin: 03/27/17 12:14 Dose: 2 units Insulin Detemir (Levemir Vial) 30 units SQ BID@0700,2200 [facility] Last Admin: 03/27/17 06:48 Dose: 30 unit Levothyroxine Sodium (Synthroid -) 100 mcg PO ACBK [facility] Last Admin: 03/27/17 06:40 Dose: 100 mcg Liraglutide (Victoza -) 1.8 mg SQ HS [facility] Last Admin: 03/26/17 22:01 Dose: 1.8 mg Metolazone (Zaroxolyn -) 2.5 mg PO DAILY@1730 [facility] Last Admin: 03/26/17 17:47 Dose: 2.5 mg Mupirocin (Bactroban 2% Cream -) 1 applic TP DAILY [facility] Last Admin: 03/27/17 09:52 Dose: 1 applic Nystatin (Mycostatin Cream -) 1 applic TP BID [facility] Last Admin: 03/27/17 09:52 Dose: 1 applic Oxycodone HCl (Roxicodone -) 10 mg PO HS PRN PRN Reason: BILATERAL LOWER LEG PAIN Last Admin: 03/26/17 22:00 Dose: 10 mg Rivaroxaban (Xarelto -) 20 mg PO DAILY@1730 [facility] Last Admin: 03/26/17 17:47 Dose: 20 mg - Objective Vital Signs: Vital Signs Temperature 97.2 F L 03/26/17 22:00 Pulse Rate 90 03/27/17 10:17 Respiratory Rate 20 03/26/17 22:00 Blood Pressure 93/50 03/26/17 22:00 O2 Sat by Pulse Oximetry (%) 90 L 03/27/17 10:17 Constitutional: Yes: No Distress, Calm Cardiovascular: Yes: S1, S2 Respiratory: Yes: Regular, CTA Bilaterally Gastrointestinal: Yes: Normal Bowel Sounds, Soft Musculoskeletal: Yes: WNL Extremities: Yes: Other Integumentary: Yes: Other Wound/Incision: Yes: Dressing Dry and Intact Neurological: Yes: Alert, Oriented Psychiatric: Yes: Alert, Oriented Labs: CBC, BMP 03/24/17 07:10 03/27/17 07:00 Assessment/Plan Problem List - Problems (1) Venous ulcer Code(s): I87.8 - OTHER SPECIFIED DISORDERS OF VEINS (2) Atrial fibrillation Code(s): I48.91 - UNSPECIFIED ATRIAL FIBRILLATION Qualifiers: Atrial fibrillation type: chronic Qualified Code(s): I48.2 - Chronic atrial fibrillation (3) CHF (congestive heart failure) Assessment/Plan: Continue Furosemide, Metholazone. UVALDO. Code(s): I50.9 - HEART FAILURE, UNSPECIFIED Qualifiers: Congestive heart failure type: diastolic Congestive heart failure chronicity: chronic Qualified Code(s): I50.32 - Chronic diastolic (congestive ) heart failure (4) Chronic atrial fibrillation Code(s): I48.2 - CHRONIC ATRIAL FIBRILLATION (5) DVT (deep venous thrombosis) Code(s): I82.409 - ACUTE EMBOLISM AND THOMBOS UNSP DEEP VN UNSP LOWER EXTREMITY Qualifiers: DVT location: lower extremity Affected thrombotic vein of extremity: femoral Chronicity: chronic Laterality: right Qualified Code(s): I82.511 - Chronic embolism and thrombosis of right femoral vein plan continue iv abx elevation of the leg wound care rest as per primary team improving we will give abx till wednesday and then discharge patient on oral abx
[2017-03-27] MEDS: METOLAZONE 2.5 MG TABLET (FP) PO SCH (17:50)
[2017-03-27] MEDS: RIVAROXABAN 20 MG TABLET PO SCH (17:51)
[2017-03-27] MEDS: ACETAMINOPHEN 325 MG TABLET (FP) PO PRN (22:09)
[2017-03-27] MEDS: oxyCODONE HCL 5 MG TABLET PO PRN (22:10)
[2017-03-27] MEDS: ATORVASTATIN CA 80 MG TABLET (FP) PO SCH (22:11)
[2017-03-27] MEDS: LIRAGLUTIDE 0.6 MG/0.1 ML PEN.INJCTR SQ SCH (22:12)
[2017-03-28] MEDS: PIPERACILLIN/TAZOB 2.25 GM 2.25 GM/50 ML BAG IVPB SCH ×3 (02:25→17:38)
[2017-03-28] MEDS: INSULIN DETEMIR 100 UNITS/ML MDV SQ SCH ×2 (06:31→21:05)
[2017-03-28] MEDS: FUROSEMIDE 40 MG TABLET (FP) PO SCH ×2 (06:31→17:15)
[2017-03-28] MEDS: LEVOTHYROXINE NA 100 MCG TABLET (FP) PO SCH (06:31)
[2017-03-28] MEDS: INSULIN SLIDING SCALE (NOVOLOG) 1 VIAL SQ SCH ×4 (06:44→21:04)
[2017-03-28] MEDS ORDERED: PT OWN MED DRAWER 7, Y5N ONE ×3 (08:57→20:33)
[2017-03-28] MEDS: ATENOLOL 50 MG TABLET (FP) PO SCH ×2 (09:12→21:02)
[2017-03-28] MEDS: ASPIRIN 81 MG CHEWABLE TABLETS PO SCH (09:12)
[2017-03-28] MEDS: ACETAMINOPHEN 325 MG TABLET (FP) PO PRN ×2 (09:12→21:11)
[2017-03-28] MEDS: ALLOPURINOL 300 MG TABLET (FP) PO SCH (09:13)
[2017-03-28] MEDS: NYSTATIN 100,000 UNIT/GM TOPICAL CREAM 15 GM TUBE TP SCH ×2 (09:13→21:07)
[2017-03-28] MEDS: MUPIROCIN CA 2% TOPICAL CREAM 15 GM TUBE TP SCH (09:13)
[2017-03-28] MEDS: COLLAGENASE CLOSTRIDIUM HIST. 30 GRAMS TUBE TP SCH (09:14)
--- NOTE | 2017-03-28 10:24 | PN ---
Progress Note (short form) - Note Progress Note: Comfortable in the room, NAD. Right LE wound-dressings clean. Vital Signs Temp 97.9 F 03/27/17 22:00 Pulse 92 H 03/27/17 22:00 Resp 18 03/27/17 22:00 BP 110/60 03/27/17 22:00 Pulse Ox 90 L 03/27/17 21:00 Intake & Output 03/27/17 03/27/17 03/28/17 11:59 23:59 11:59 Intake Total 290 750 Output Total 1300 1625 1000 Balance -1010 -875 -1000 Weight 435 lb 6 oz Intake: IVPB 50 Oral 240 750 Output: Urine 1300 1625 1000 Void 1300 1625 1000 Other: Voiding Method Urinal Urinal Bowel Movement Yes # Bowel Movements 1 Weight Measurement Method Built in Bedscale Neck-no JVD Lungs are clear. Heart S1S2 irregular Abdomen obese, soft, no palpable mass. LE venous stasis changes. RLE > LLE Dr Subramanian f/u appreciated Current Active Problems Problem Status Onset Venous insufficiency Acute Venous ulcer PAH CHF-CHFdEF ASHLEY CTEPH-previous PE DM 2 A.FIB Morbid obesety. Chronic low back pain Acute Plan Continue IV abx next 48 hrs the will change to PO Wound care Follow BGM, Insulin. Problem List - Problems (1) Venous ulcer Code(s): I87.8 - OTHER SPECIFIED DISORDERS OF VEINS (2) Atrial fibrillation Code(s): I48.91 - UNSPECIFIED ATRIAL FIBRILLATION Qualifiers: Atrial fibrillation type: chronic Qualified Code(s): I48.2 - Chronic atrial fibrillation (3) CHF (congestive heart failure) Code(s): I50.9 - HEART FAILURE, UNSPECIFIED Qualifiers: Congestive heart failure type: diastolic Congestive heart failure chronicity: chronic Qualified Code(s): I50.32 - Chronic diastolic (congestive ) heart failure (4) Chronic atrial fibrillation Code(s): I48.2 - CHRONIC ATRIAL FIBRILLATION (5) DVT (deep venous thrombosis) Code(s): I82.409 - ACUTE EMBOLISM AND THOMBOS UNSP DEEP VN UNSP LOWER EXTREMITY Qualifiers: DVT location: lower extremity Affected thrombotic vein of extremity: femoral Chronicity: chronic Laterality: right Qualified Code(s): I82.511 - Chronic embolism and thrombosis of right femoral vein
[2017-03-28 10:43] LABS: HEMATOCRIT 39.9 % (35.4-49); HEMOGLOBIN 12.9 GM/dL (11.7-16.9); MCH 30.5 pg (25.7-33.7); MCHC 32.2 g/dl (32.0-35.9); MEAN CELL VOLUME 94.8 fl (80-96); MEAN PLT VOLUME 8.3 fl (7.5-11.1); PLATELET COUNT 198 K/MM3 (134-434); RBC 4.21 M/mm3 (4.00-5.60); RDW 15.8 % (11.9-15.9); WHITE BLOOD COUNT 10.3 K/mm3 (4.0-10.0)
[2017-03-28 10:49] LABS: ANION GAP 13 (8-16); BLOOD UREA NITROGEN 72 mg/dL (7-18); CHLORIDE 93 mmol/L (98-107); CO2 28 mmol/L (21-32); CREATININE 2.9 mg/dL (0.7-1.3); GLUCOSE,RANDOM 259 mg/dL (74-106); POTASSIUM 4.1 mmol/L (3.5-5.1); SODIUM 134 mmol/L (136-145)
--- NOTE | 2017-03-28 14:01 | PN ---
Progress Note, Physician History of Present Illness: stable no new issues - Current Medication List Current Medications: Active Medications Acetaminophen (Tylenol -) 650 mg PO HS PRN PRN Reason: BILATERAL LOWER LEG PAIN Last Admin: 03/28/17 09:12 Dose: 650 mg Allopurinol (Zyloprim -) 300 mg PO DAILY [facility] Last Admin: 03/28/17 09:13 Dose: 300 mg Aspirin (Asa -) 81 mg PO DAILY [facility] Last Admin: 03/28/17 09:12 Dose: 81 mg Atenolol (Tenormin -) 100 mg PO BID [facility] Last Admin: 03/28/17 09:12 Dose: 100 mg Atorvastatin Calcium (Lipitor -) 80 mg PO HS [facility] Last Admin: 03/27/17 22:11 Dose: 80 mg Collagenase (Santyl -) 1 applic TP DAILY [facility] Last Admin: 03/28/17 09:14 Dose: 1 applic Furosemide (Lasix -) 80 mg PO BID@0600,1800 [facility] Last Admin: 03/28/17 06:31 Dose: 80 mg Piperacillin/Tazobactam/Dextrose (Zosyn 2.25gm Ivpb (Premix)) 2.25 gm in 50 mls @ 100 mls/hr IVPB Q8H-IV [facility] PRN Reason: Protocol Last Admin: 03/28/17 09:13 Dose: 100 mls/hr Insulin Aspart (Novolog Vial Sliding Scale -) 1 vial SQ ACHS [facility] PRN Reason: Protocol Last Admin: 03/28/17 12:49 Dose: 2 units Insulin Detemir (Levemir Vial) 35 units SQ BID@0700,2200 [facility] Levothyroxine Sodium (Synthroid -) 100 mcg PO ACBK [facility] Last Admin: 03/28/17 06:31 Dose: 100 mcg Liraglutide (Victoza -) 1.8 mg SQ HS [facility] Last Admin: 03/27/17 22:12 Dose: 1.8 mg Metolazone (Zaroxolyn -) 2.5 mg PO DAILY@1730 [facility] Last Admin: 03/27/17 17:50 Dose: 2.5 mg Mupirocin (Bactroban 2% Cream -) 1 applic TP DAILY [facility] Last Admin: 03/28/17 09:13 Dose: 1 applic Nystatin (Mycostatin Cream -) 1 applic TP BID [facility] Last Admin: 03/28/17 09:13 Dose: 1 applic Oxycodone HCl (Roxicodone -) 10 mg PO HS PRN PRN Reason: BILATERAL LOWER LEG PAIN Last Admin: 03/27/17 22:10 Dose: 10 mg Rivaroxaban (Xarelto -) 20 mg PO DAILY@1730 [facility] Last Admin: 03/27/17 17:51 Dose: 20 mg - Objective Vital Signs: Vital Signs Temperature 97.8 F 03/28/17 10:00 Pulse Rate 80 03/28/17 12:05 Respiratory Rate 18 03/28/17 10:00 Blood Pressure 89/64 03/28/17 10:00 O2 Sat by Pulse Oximetry (%) 91 L 03/28/17 12:05 Constitutional: Yes: No Distress, Calm, Obese Cardiovascular: Yes: Pulse Irregular Respiratory: Yes: Regular, CTA Bilaterally Gastrointestinal: Yes: Normal Bowel Sounds Musculoskeletal: Yes: Other Extremities: Yes: Other Wound/Incision: Yes: Dressing Dry and Intact Neurological: Yes: Alert, Oriented Psychiatric: Yes: Alert, Oriented Labs: CBC, BMP 03/28/17 09:55 03/28/17 09:55 Assessment/Plan Problem List - Problems (1) Venous ulcer Code(s): I87.8 - OTHER SPECIFIED DISORDERS OF VEINS (2) Atrial fibrillation Code(s): I48.91 - UNSPECIFIED ATRIAL FIBRILLATION Qualifiers: Atrial fibrillation type: chronic Qualified Code(s): I48.2 - Chronic atrial fibrillation (3) CHF (congestive heart failure) Assessment/Plan: Continue Furosemide, Metholazone. UVALDO. Code(s): I50.9 - HEART FAILURE, UNSPECIFIED Qualifiers: Congestive heart failure type: diastolic Congestive heart failure chronicity: chronic Qualified Code(s): I50.32 - Chronic diastolic (congestive ) heart failure (4) Chronic atrial fibrillation Code(s): I48.2 - CHRONIC ATRIAL FIBRILLATION (5) DVT (deep venous thrombosis) Code(s): I82.409 - ACUTE EMBOLISM AND THOMBOS UNSP DEEP VN UNSP LOWER EXTREMITY Qualifiers: DVT location: lower extremity Affected thrombotic vein of extremity: femoral Chronicity: chronic Laterality: right Qualified Code(s): I82.511 - Chronic embolism and thrombosis of right femoral vein plan continue iv abx elevation of the leg wound care rest as per primary team improving continue abx till Wednesday and then discharge on oral
[2017-03-28] MEDS: METOLAZONE 2.5 MG TABLET (FP) PO SCH (17:15)
[2017-03-28] MEDS: RIVAROXABAN 20 MG TABLET PO SCH (17:15)
[2017-03-28] MEDS: ATORVASTATIN CA 80 MG TABLET (FP) PO SCH (21:02)
[2017-03-28] MEDS: LIRAGLUTIDE 0.6 MG/0.1 ML PEN.INJCTR SQ SCH (21:08)
[2017-03-29] MEDS: PIPERACILLIN/TAZOB 2.25 GM 2.25 GM/50 ML BAG IVPB SCH ×3 (01:59→17:48)
[2017-03-29] MEDS: LEVOTHYROXINE NA 100 MCG TABLET (FP) PO SCH (06:26)
[2017-03-29] MEDS: FUROSEMIDE 40 MG TABLET (FP) PO SCH ×2 (06:26→17:48)
[2017-03-29] MEDS: INSULIN DETEMIR 100 UNITS/ML MDV SQ SCH ×2 (06:31→21:18)
[2017-03-29] MEDS: ACETAMINOPHEN 325 MG TABLET (FP) PO PRN (06:34)
[2017-03-29] MEDS ORDERED: PT OWN MED DRAWER 7, Y5N ONE ×3 (09:14→21:04)
[2017-03-29] MEDS: INSULIN SLIDING SCALE (NOVOLOG) 1 VIAL SQ SCH ×4 (09:30→21:16)
[2017-03-29] MEDS: LISINOPRIL 5 MG TABLET (FP) PO SCH (09:32)
[2017-03-29] MEDS: ATENOLOL 50 MG TABLET (FP) PO SCH ×2 (09:32→21:20)
[2017-03-29] MEDS: ASPIRIN 81 MG CHEWABLE TABLETS PO SCH (09:32)
[2017-03-29] MEDS: ALLOPURINOL 300 MG TABLET (FP) PO SCH (09:32)
[2017-03-29] MEDS: NYSTATIN 100,000 UNIT/GM TOPICAL CREAM 15 GM TUBE TP SCH ×2 (09:35→21:28)
[2017-03-29] MEDS: MUPIROCIN CA 2% TOPICAL CREAM 15 GM TUBE TP SCH (09:36)
[2017-03-29] MEDS: COLLAGENASE CLOSTRIDIUM HIST. 30 GRAMS TUBE TP SCH (09:36)
--- NOTE | 2017-03-29 14:43 | PN ---
Progress Note, Physician History of Present Illness: patient stable doing well dressing removed wounds looked at dry no drainage - Current Medication List Current Medications: Active Medications Acetaminophen (Tylenol -) 650 mg PO HS PRN PRN Reason: BILATERAL LOWER LEG PAIN Last Admin: 03/29/17 06:34 Dose: 650 mg Allopurinol (Zyloprim -) 300 mg PO DAILY [facility] Last Admin: 03/29/17 09:32 Dose: 300 mg Aspirin (Asa -) 81 mg PO DAILY [facility] Last Admin: 03/29/17 09:32 Dose: 81 mg Atenolol (Tenormin -) 100 mg PO BID [facility] Last Admin: 03/29/17 09:32 Dose: 100 mg Atorvastatin Calcium (Lipitor -) 80 mg PO HS [facility] Last Admin: 03/28/17 21:02 Dose: 80 mg Collagenase (Santyl -) 1 applic TP DAILY [facility] Last Admin: 03/29/17 09:36 Dose: 1 applic Furosemide (Lasix -) 80 mg PO BID@0600,1800 [facility] Last Admin: 03/29/17 06:26 Dose: 80 mg Piperacillin/Tazobactam/Dextrose (Zosyn 2.25gm Ivpb (Premix)) 2.25 gm in 50 mls @ 100 mls/hr IVPB Q8H-IV [facility] PRN Reason: Protocol Last Admin: 03/29/17 09:32 Dose: 100 mls/hr Insulin Aspart (Novolog Vial Sliding Scale -) 1 vial SQ ACHS [facility] PRN Reason: Protocol Last Admin: 03/29/17 12:03 Dose: 2 units Insulin Detemir (Levemir Vial) 35 units SQ BID@0700,2200 [facility] Last Admin: 03/29/17 06:31 Dose: 35 units Levothyroxine Sodium (Synthroid -) 100 mcg PO ACBK [facility] Last Admin: 03/29/17 06:26 Dose: 100 mcg Liraglutide (Victoza -) 1.8 mg SQ HS [facility] Last Admin: 03/28/17 21:08 Dose: 1.8 mg Lisinopril (Prinivil) 2.5 mg PO DAILY [facility] Last Admin: 03/29/17 09:32 Dose: Not Given Metolazone (Zaroxolyn -) 2.5 mg PO DAILY@1730 [facility] Last Admin: 03/28/17 17:15 Dose: 2.5 mg Mupirocin (Bactroban 2% Cream -) 1 applic TP DAILY [facility] Last Admin: 03/29/17 09:36 Dose: 1 applic Nystatin (Mycostatin Cream -) 1 applic TP BID [facility] Last Admin: 03/29/17 09:35 Dose: 1 applic Oxycodone HCl (Roxicodone -) 10 mg PO HS PRN PRN Reason: BILATERAL LOWER LEG PAIN Last Admin: 03/27/17 22:10 Dose: 10 mg Rivaroxaban (Xarelto -) 20 mg PO DAILY@1730 [facility] Last Admin: 03/28/17 17:15 Dose: 20 mg - Objective Vital Signs: Vital Signs Temperature 98.3 F 03/29/17 10:00 Pulse Rate 76 03/29/17 10:00 Respiratory Rate 18 03/29/17 10:00 Blood Pressure 106/69 03/29/17 10:00 O2 Sat by Pulse Oximetry (%) 92 L 03/29/17 09:00 Constitutional: Yes: No Distress, Calm, Obese Eyes: Yes: Conjunctiva Clear Cardiovascular: Yes: Pulse Irregular Respiratory: Yes: Regular, CTA Bilaterally Gastrointestinal: Yes: Normal Bowel Sounds, Soft Musculoskeletal: Yes: Other Extremities: Yes: Other Wound/Incision: Yes: Clean/Dry Neurological: Yes: Alert, Oriented Psychiatric: Yes: Alert, Oriented Labs: CBC, BMP 03/28/17 09:55 03/28/17 09:55 Assessment/Plan Problem List - Problems (1) Venous ulcer Code(s): I87.8 - OTHER SPECIFIED DISORDERS OF VEINS (2) Atrial fibrillation Code(s): I48.91 - UNSPECIFIED ATRIAL FIBRILLATION Qualifiers: Atrial fibrillation type: chronic Qualified Code(s): I48.2 - Chronic atrial fibrillation (3) CHF (congestive heart failure) Assessment/Plan: Continue Furosemide, Metholazone. UVALDO. Code(s): I50.9 - HEART FAILURE, UNSPECIFIED Qualifiers: Congestive heart failure type: diastolic Congestive heart failure chronicity: chronic Qualified Code(s): I50.32 - Chronic diastolic (congestive ) heart failure (4) Chronic atrial fibrillation Code(s): I48.2 - CHRONIC ATRIAL FIBRILLATION (5) DVT (deep venous thrombosis) Code(s): I82.409 - ACUTE EMBOLISM AND THOMBOS UNSP DEEP VN UNSP LOWER EXTREMITY Qualifiers: DVT location: lower extremity Affected thrombotic vein of extremity: femoral Chronicity: chronic Laterality: right Qualified Code(s): I82.511 - Chronic embolism and thrombosis of right femoral vein plan continue iv abx elevation of the leg wound care rest as per primary team improving continue abx till Wednesday and then discharge on oral oral abx augmentin 500 mg daily for 5 days levaquin 250 mg daily for 5 days will re see the wound in wound care and then decide further management
[2017-03-29] MEDS: METOLAZONE 2.5 MG TABLET (FP) PO SCH (17:47)
[2017-03-29] MEDS: RIVAROXABAN 20 MG TABLET PO SCH (17:47)
[2017-03-29] MEDS: oxyCODONE HCL 5 MG TABLET PO PRN (21:20)
[2017-03-29] MEDS: ATORVASTATIN CA 80 MG TABLET (FP) PO SCH (21:21)
[2017-03-29] MEDS: LIRAGLUTIDE 0.6 MG/0.1 ML PEN.INJCTR SQ SCH (21:22)
[2017-03-30] MEDS: PIPERACILLIN/TAZOB 2.25 GM 2.25 GM/50 ML BAG IVPB SCH ×2 (02:52→09:55)
[2017-03-30] MEDS: INSULIN SLIDING SCALE (NOVOLOG) 1 VIAL SQ SCH ×2 (06:33→14:24)
[2017-03-30] MEDS: FUROSEMIDE 40 MG TABLET (FP) PO SCH (06:33)
[2017-03-30] MEDS: LEVOTHYROXINE NA 100 MCG TABLET (FP) PO SCH (06:33)
[2017-03-30] MEDS: INSULIN DETEMIR 100 UNITS/ML MDV SQ SCH (06:33)
[2017-03-30 09:24] LABS: BASO % 1.2 % (0-2.0); HEMATOCRIT 36.1 % (35.4-49); HEMOGLOBIN 11.7 GM/dL (11.7-16.9); LYMPH % 13.2 % (8-40); MCH 30.6 pg (25.7-33.7); MCHC 32.4 g/dl (32.0-35.9); MEAN CELL VOLUME 94.5 fl (80-96); MEAN PLT VOLUME 8.1 fl (7.5-11.1); MONO % 7.4 % (3.8-10.2); NEUT % 75.2 % (42.8-82.8); PLATELET COUNT 178 K/MM3 (134-434); RBC 3.82 M/mm3 (4.00-5.60); RDW 16.1 % (11.9-15.9); WHITE BLOOD COUNT 10.6 K/mm3 (4.0-10.0)
--- NOTE | 2017-03-30 09:30 | PN ---
Progress Note, Physician History of Present Illness: doing well no issues some dried blood in nostril patient says that it is due to his mike machine - Current Medication List Current Medications: Active Medications Acetaminophen (Tylenol -) 650 mg PO HS PRN PRN Reason: BILATERAL LOWER LEG PAIN Last Admin: 03/29/17 06:34 Dose: 650 mg Allopurinol (Zyloprim -) 300 mg PO DAILY [facility] Last Admin: 03/29/17 09:32 Dose: 300 mg Aspirin (Asa -) 81 mg PO DAILY [facility] Last Admin: 03/29/17 09:32 Dose: 81 mg Atenolol (Tenormin -) 100 mg PO BID [facility] Last Admin: 03/29/17 21:20 Dose: 100 mg Atorvastatin Calcium (Lipitor -) 80 mg PO HS [facility] Last Admin: 03/29/17 21:21 Dose: 80 mg Collagenase (Santyl -) 1 applic TP DAILY [facility] Last Admin: 03/29/17 09:36 Dose: 1 applic Furosemide (Lasix -) 80 mg PO BID@0600,1800 [facility] Last Admin: 03/30/17 06:33 Dose: 80 mg Piperacillin/Tazobactam/Dextrose (Zosyn 2.25gm Ivpb (Premix)) 2.25 gm in 50 mls @ 100 mls/hr IVPB Q8H-IV [facility] PRN Reason: Protocol Last Admin: 03/30/17 02:52 Dose: 100 mls/hr Insulin Aspart (Novolog Vial Sliding Scale -) 1 vial SQ ACHS [facility] PRN Reason: Protocol Last Admin: 03/30/17 06:33 Dose: 2 units Insulin Detemir (Levemir Vial) 35 units SQ BID@0700,2200 [facility] Last Admin: 03/30/17 06:33 Dose: 35 units Levothyroxine Sodium (Synthroid -) 100 mcg PO ACBK [facility] Last Admin: 03/30/17 06:33 Dose: 100 mcg Liraglutide (Victoza -) 1.8 mg SQ HS [facility] Last Admin: 03/29/17 21:22 Dose: 1.8 mg Lisinopril (Prinivil) 2.5 mg PO DAILY [facility] Last Admin: 03/29/17 09:32 Dose: Not Given Metolazone (Zaroxolyn -) 2.5 mg PO DAILY@1730 [facility] Last Admin: 03/29/17 17:47 Dose: 2.5 mg Mupirocin (Bactroban 2% Cream -) 1 applic TP DAILY [facility] Last Admin: 03/29/17 09:36 Dose: 1 applic Nystatin (Mycostatin Cream -) 1 applic TP BID [facility] Last Admin: 03/29/17 21:28 Dose: 1 applic Oxycodone HCl (Roxicodone -) 10 mg PO HS PRN PRN Reason: BILATERAL LOWER LEG PAIN Last Admin: 03/29/17 21:20 Dose: 10 mg Rivaroxaban (Xarelto -) 20 mg PO DAILY@1730 [facility] Last Admin: 03/29/17 17:47 Dose: 20 mg - Objective Vital Signs: Vital Signs Temperature 98.0 F 03/30/17 06:00 Pulse Rate 79 03/30/17 06:00 Respiratory Rate 18 03/30/17 06:00 Blood Pressure 103/69 03/30/17 06:00 O2 Sat by Pulse Oximetry (%) 94 L 03/29/17 21:00 Constitutional: Yes: No Distress, Calm, Obese Cardiovascular: Yes: Pulse Irregular Respiratory: Yes: Regular, CTA Bilaterally Musculoskeletal: Yes: WNL Extremities: Yes: Other Wound/Incision: Yes: Dressing Dry and Intact Neurological: Yes: Alert, Oriented Psychiatric: Yes: Alert Labs: CBC, BMP 03/30/17 08:30 Assessment/Plan Problem List - Problems (1) Venous ulcer Code(s): I87.8 - OTHER SPECIFIED DISORDERS OF VEINS (2) Atrial fibrillation Code(s): I48.91 - UNSPECIFIED ATRIAL FIBRILLATION Qualifiers: Atrial fibrillation type: chronic Qualified Code(s): I48.2 - Chronic atrial fibrillation (3) CHF (congestive heart failure) Assessment/Plan: Continue Furosemide, Metholazone. UVALDO. Code(s): I50.9 - HEART FAILURE, UNSPECIFIED Qualifiers: Congestive heart failure type: diastolic Congestive heart failure chronicity: chronic Qualified Code(s): I50.32 - Chronic diastolic (congestive ) heart failure (4) Chronic atrial fibrillation Code(s): I48.2 - CHRONIC ATRIAL FIBRILLATION (5) DVT (deep venous thrombosis) Code(s): I82.409 - ACUTE EMBOLISM AND THOMBOS UNSP DEEP VN UNSP LOWER EXTREMITY Qualifiers: DVT location: lower extremity Affected thrombotic vein of extremity: femoral Chronicity: chronic Laterality: right Qualified Code(s): I82.511 - Chronic embolism and thrombosis of right femoral vein plan can discharge patient oral abx called for augmentin 500 mg daily for 5 days levaquin 250 mg daily for 5 days will re see the wound in wound care and then decide further management
[2017-03-30] MEDS ORDERED: PT OWN MED DRAWER 7, Y5N ONE (09:41)
[2017-03-30] MEDS: ASPIRIN 81 MG CHEWABLE TABLETS PO SCH (09:52)
[2017-03-30] MEDS: LISINOPRIL 5 MG TABLET (FP) PO SCH (09:52)
[2017-03-30] MEDS: ALLOPURINOL 300 MG TABLET (FP) PO SCH (09:53)
[2017-03-30] MEDS: ATENOLOL 50 MG TABLET (FP) PO SCH (09:53)
[2017-03-30 09:55] LABS: CHLORIDE 96 mmol/L (98-107); POTASSIUM 3.7 mmol/L (3.5-5.1); SODIUM 135 mmol/L (136-145)
[2017-03-30 10:08] LABS: ALBUMIN 2.9 g/dl (3.4-5.0); ALK PHOS 78 U/L (45-117); ANION GAP 11 (8-16); BILIRUBIN,TOTAL 0.5 mg/dL (0.2-1.0); BLOOD UREA NITROGEN 79 mg/dL (7-18); CALCIUM 8.4 mg/dL (8.5-10.1); CO2 28 mmol/L (21-32); CREATININE 2.5 mg/dL (0.7-1.3); GLUCOSE,RANDOM 209 mg/dL (74-106); SGOT/AST 30 U/L (15-37); SGPT/ALT 46 U/L (12-78); TOT PROT 7.3 g/dl (6.4-8.2)
[2017-03-30 11:36] VITALS: BP 108/72; PULSE 82; TEMP 98.2
--- NOTE | 2017-03-30 12:42 | PN ---
Progress Note (short form) - Note Progress Note: Right LE wound improving. ID recommends to swithch to PO abx and D/C Discussed with pt and treatment at S F/u in the office next week. Vital Signs Temp 98.2 F 03/30/17 10:00 Pulse 82 03/30/17 10:00 Resp 19 03/30/17 10:00 BP 108/72 03/30/17 10:00 Pulse Ox 90 L 03/30/17 09:00 Intake & Output 03/29/17 03/30/17 03/30/17 23:59 11:59 23:59 Intake Total 1290 100 Output Total 200 1500 Balance 1090 -1400 Weight 428 lb 14.4 oz Intake: IVPB 200 100 Oral 1090 Output: Urine 200 1500 Void 200 1500 Other: Voiding Method Urinal Urinal # Unmeasured Voids Void 2 Bowel Movement Yes Yes Weight Measurement Method Built in Bedscale Awake, alert, NAD Lungs are clear. Heart S1s2 irregular Abdomen obese, no palpable HSN or massLE edema +1 RLE dressing intact. Laboratory Results - last 24 hr 03/29/17 03/29/17 03/30/17 17:46 21:15 06:31 WBC RBC Hgb Hct MCV MCH MCHC RDW Plt Count MPV Neutrophils % Lymphocytes % Monocytes % Eosinophils % Basophils % Sodium Potassium Chloride Carbon Dioxide Anion Gap BUN Creatinine Creat Clearance w eGFR POC Glucometer 231 313 242 Random Glucose Calcium Total Bilirubin AST ALT Alkaline Phosphatase Total Protein Albumin 03/30/17 03/30/17 08:30 08:30 WBC 10.6 H RBC 3.82 L Hgb 11.7 Hct 36.1 MCV 94.5 MCH 30.6 MCHC 32.4 RDW 16.1 H Plt Count 178 MPV 8.1 Neutrophils % 75.2 Lymphocytes % 13.2 Monocytes % 7.4 Eosinophils % 3.0 Basophils % 1.2 Sodium 135 L Potassium 3.7 Chloride 96 L Carbon Dioxide 28 Anion Gap 11 BUN 79 H Creatinine 2.5 H Creat Clearance w eGFR 26.30 POC Glucometer Random Glucose 209 H Calcium 8.4 L Total Bilirubin 0.5 AST 30 D ALT 46 D Alkaline Phosphatase 78 Total Protein 7.3 Albumin 2.9 L Current Active Problems Problem Status Onset Venous insufficiency Acute Venous ulcer CHF AFIB PAH DM 2 ASHLEY Acute Plan D/C home on po ABX Augmentin/Levaquin as per ID F/u at the office Problem List - Problems (1) Venous ulcer Code(s): I87.8 - OTHER SPECIFIED DISORDERS OF VEINS (2) Atrial fibrillation Code(s): I48.91 - UNSPECIFIED ATRIAL FIBRILLATION Qualifiers: Atrial fibrillation type: chronic Qualified Code(s): I48.2 - Chronic atrial fibrillation (3) CHF (congestive heart failure) Code(s): I50.9 - HEART FAILURE, UNSPECIFIED Qualifiers: Congestive heart failure type: diastolic Congestive heart failure chronicity: chronic Qualified Code(s): I50.32 - Chronic diastolic (congestive ) heart failure (4) Chronic atrial fibrillation Code(s): I48.2 - CHRONIC ATRIAL FIBRILLATION (5) DVT (deep venous thrombosis) Code(s): I82.409 - ACUTE EMBOLISM AND THOMBOS UNSP DEEP VN UNSP LOWER EXTREMITY Qualifiers: DVT location: lower extremity Affected thrombotic vein of extremity: femoral Chronicity: chronic Laterality: right Qualified Code(s): I82.511 - Chronic embolism and thrombosis of right femoral vein
--- NOTE | 2017-03-30 12:44 | DS ---
Physical Examination Vital Signs: Vital Signs Temperature 98.2 F 03/30/17 10:00 Pulse Rate 82 03/30/17 10:00 Respiratory Rate 19 03/30/17 10:00 Blood Pressure 108/72 03/30/17 10:00 O2 Sat by Pulse Oximetry (%) 90 L 03/30/17 09:00 Constitutional: Yes: No Distress, Obese. No: Anxious, Pallor Eyes: Yes: Conjunctiva Clear, EOM Intact, PERRL. No: Diplopia, Ptosis, Sclera Icterus, Tearing HENT: No: Atraumatic, Normocephalic, Drooling, Epistaxis, Hoarseness, Nasal Congestion, Thrush Neck: Yes: Supple, Trachea Midline. No: Lymphadenopathy, Rigid, Tenderness, Thyromegaly Cardiovascular: Yes: Pulse Irregular, Murmur, S1, S2. No: Bradycardia, Tachycardia, JVD, Rub Respiratory: Yes: Regular, CTA Bilaterally, SOB, SOB on Exertion. No: Accessory Muscle Use, Bradypnea, Cough, Diminished, Rales, Stridor, Tachypnea, Wheezes Gastrointestinal: Yes: Normal Bowel Sounds, Abdomen, Obese. No: Ascites, Palpable Mass, Splenomegaly, Tenderness, Tenderness, Epigastrium, Tenderness, Rebound, Vomiting ...Rectal Exam: Yes: Deferred Renal/: No: Anuria Breast(s): Yes: WNL Musculoskeletal: No: Joint Stiffness, Joint Swelling, Muscle Weakness Extremities: No: Amputation, Calf Tenderness, Cold, Cool, Cyanosis Edema: Yes Edema: LLE: 1+, RLE: 1+ Peripheral Pulses WNL: No Integumentary: Yes: Venous Stasis Changes, Other (RLE venous ulcer) Neurological: Yes: Alert, Oriented. No: Aphasia, Asterixis, Ataxia, Babinski positive, Lethargy, Loss of Sensation, Numbness, Paresthesia, Seizure, Tremors, Unresponsive, Unsteady Gait, Weakness Psychiatric: Yes: WNL Labs: CBC, BMP 03/30/17 08:30 03/30/17 08:30 Discharge Summary Reason For Visit: VENOUS ULCER,CHRONIC VENOUS INSUFFICIENCY Current Active Problems Venous insufficiency (Acute) Venous ulcer (Acute) - Instructions Referrals: Keyon Hudson MD [Primary Care Provider] - Disposition: HOME - Home Medications Comprehensive Discharge Medication List: Ambulatory Orders Oxycodone HCl/Acetaminophen [Percocet 5-325 mg Tablet] 2 combo PO HS PRN Furosemide [Lasix -] 80 mg PO BID@0600,1800 #0 tablet 12/14/11 Glipizide [Glipizide Xl] 10 mg PO BID 02/27/13 Insulin Glargine,Hum.rec.anlog [Lantus Solostar PEN -] 80 unit SQ DAILY Levothyroxine [Synthroid -] 100 mcg PO DAILY 01/26/14 Potassium Chloride [K-Dur -] 10 meq PO BID 04/10/14 Rivaroxaban [Xarelto -] 20 mg PO DAILY 10/30/14 Atorvastatin Ca [Lipitor] 80 mg PO HS 09/05/15 Lisinopril 10 mg PO DAILY 09/05/15 Atenolol 100 mg PO BID 07/24/16 Metolazone 2.5 mg PO DAILY 07/24/16 Mupirocin Cream [Bactroban 2% Cream -] 1 applic TP DAILY #1 tube 11/20/16
[2017-03-30] MEDS: NYSTATIN 100,000 UNIT/GM TOPICAL CREAM 15 GM TUBE TP SCH (14:23)
[2017-03-30] MEDS: MUPIROCIN CA 2% TOPICAL CREAM 15 GM TUBE TP SCH (14:23)
[2017-03-30] MEDS: COLLAGENASE CLOSTRIDIUM HIST. 30 GRAMS TUBE TP SCH (14:23)
== END 2017-03-30 14:53 | disposition home or self-care (01) | DRG 638 ==
LOC: JER 10:23 → JERBED 12:16 → J8W 19:31
PROVIDERS: ADMIT Internal Medicine; ATTEND Internal Medicine
PROC: 5A09457 Assistance with Respiratory Ventilation, 24-96 Consecutive Hours, Continuous Positive Airway Pressure (ICD-10-PCS; principal; 2017-03-24)
DX: E11.622 Type 2 diabetes mellitus with other skin ulcer (principal); L98.498 Non-pressure chronic ulcer of skin of other sites with other specified severity; Z68.43 Body mass index [BMI] 50.0-59.9, adult; L03.115 Cellulitis of right lower limb; I13.0 Hypertensive heart and chronic kidney disease with heart failure and stage 1 through stage 4 chronic kidney disease, or unspecified chronic kidney disease; I50.32 Chronic diastolic (congestive) heart failure; E11.42 Type 2 diabetes mellitus with diabetic polyneuropathy; E66.01 Morbid (severe) obesity due to excess calories; F32.89 Other specified depressive episodes; K59.09 Other constipation; M54.5 Low back pain; M10.9 Gout, unspecified; E03.9 Hypothyroidism, unspecified; K80.80 Other cholelithiasis without obstruction; G47.33 Obstructive sleep apnea (adult) (pediatric); I48.2 Chronic atrial fibrillation; I27.20 Pulmonary hypertension, unspecified; I82.511 Chronic embolism and thrombosis of right femoral vein; I82.5Z1 Chronic embolism and thrombosis of unspecified deep veins of right distal lower extremity; E11.22 Type 2 diabetes mellitus with diabetic chronic kidney disease; N18.3 Chronic kidney disease, stage 3 (moderate); I25.2 Old myocardial infarction; Z87.891 Personal history of nicotine dependence; Z95.5 Presence of coronary angioplasty implant and graft
CPT/HCPCS: 36415; 71010-TC; 80048; 80053; 81003; 81015; 83605; 83735; 84100; 85025; 85027; 87040; 90670; 93005; 93010; 94660; 99281-25

== ENCOUNTER 2017-07-11 21:39 | Inpatient (IN) | payer OTHER, BC ==
--- NOTE | 2017-07-11 21:53 | PDOC ---
History of Present Illness - General Chief Complaint: Injury Stated Complaint: FALL Time Seen by Provider: 07/11/17 21:47 - History of Present Illness Initial Comments: 07/11/17 22:40 61 year old male with a PMH of Diastolic CHF, CAD (s/p AL w/MICHAEL x2), Atrial Fibrillation (on A/C), Gout, CKD Stage 3, DM, DVT as well as chronic RLE ulcers (follows w/wound care) presents after a fall. Patient states he was walking in his driveway when his legs gave out on him and he fell forward on his stomach. Patient denies any head trauma or LOC as well as any pre fall dyspnea, chest pain, lightheadedness. At presentation patient c/o lightheadedness and B/L LE pain (chronic) Patient denies current abdominal pain, nausea/vomiting, diarrhea/constipation, fevers/chills. Past History - Past Medical History Allergies/Adverse Reactions: Allergies Allergy/AdvReac Type Severity Reaction Status Date / Time Sulfa (Sulfonamide Allergy Intermediate Rash Verified 07/11/17 23:06 Antibiotics) Home Medications: Ambulatory Orders Oxycodone HCl/Acetaminophen [Percocet 5-325 mg Tablet] 2 combo PO HS PRN Furosemide [Lasix -] 80 mg PO BID@0600,1800 #0 tablet 12/14/11 Glipizide [Glipizide Xl] 10 mg PO BID 02/27/13 Insulin Glargine,Hum.rec.anlog [Lantus Solostar PEN -] 80 unit SQ DAILY Levothyroxine [Synthroid -] 100 mcg PO DAILY 01/26/14 Rivaroxaban [Xarelto -] 20 mg PO DAILY 10/30/14 Atorvastatin Ca [Lipitor] 80 mg PO HS 09/05/15 Lisinopril 10 mg PO DAILY 09/05/15 Atenolol 100 mg PO BID 07/24/16 Mupirocin Cream [Bactroban 2% Cream -] 1 applic TP DAILY #1 tube 11/20/16 Collagenase Clostridium Hist. [Santyl] 1 applic TP DAILY #90 oint...g. 06/14/17 Liraglutide [Victoza -] 1.8 mg SQ DAILY@0700 07/11/17 Anemia: No Asthma: No Cancer: No Cardiac Disorders: Yes CVA: No COPD: No CHF: Yes DVT: Yes Dementia: No Diabetes: Yes GI Disorders: No Disorders: No HTN: Yes Hypercholesterolemia: Yes Liver Disease: No Seizures: No Thyroid Disease: Yes (hypo) - Surgical History Abdominal Surgery: No Appendectomy: No Cardiac Surgery: Yes (x 2 stents 07/2015) Cholecystectomy: No Lung Surgery: No Neurologic Surgery: No Orthopedic Surgery: Yes (RT MIDDLE TOE(EXTRA BONE) PULL OUT) - Immunization History Immunization Up to Date: Yes - Suicide/Smoking/Psychosocial Hx Smoking Status: No Smoking History: Former smoker Have you smoked in the past 12 months: No Number of Cigarettes Smoked Daily: 0 If you are a former smoker, when did you quit?: 1992 'Breaking Loose' booklet given: 09/05/15 Hx Alcohol Use: No Drug/Substance Use Hx: No Substance Use Type: None Hx Substance Use Treatment: No *Physical Exam - Physical Exam General Appearance: Yes: Nourished, Obese HEENT: positive: EOMI, MIKE Neck: positive: Trachea midline, Supple Respiratory/Chest: positive: Lungs Clear Cardiovascular: positive: S1, S2 Gastrointestinal/Abdominal: positive: Soft, Protuberent Extremity: positive: Other (RLE erythema + warmth from foot to mid-calf; 2+ B/L LE pulses) ED Treatment Course - LABORATORY CBC & Chemistry Diagram: 07/18/17 07:00 07/18/17 07:00 Medical Decision Making - Medical Decision Making 07/11/17 22:44 61 year old male with BIBEMS after a fall. Patient states his legs gave out on him. PE significant for RLE erythema, warmth, wound w/purulent discharge. Presumptive cellulitis diagnosis. VS unremarkable Will obtain basic labs + lactic acid. WBC 27.8. Will start broad spectrum abx. Patient's PMD, Dr. Hudson contacted, will admit patient pending RLE imaging. ID consult pending. *DC/Admit/Observation/Transfer Diagnosis at time of Disposition: Cellulitis - Discharge Dispostion Condition at time of disposition: Fair Admit: Yes - Referrals - Patient Instructions - Post Discharge Activity
[2017-07-11 22:01] VITALS: BMI 58.6
[2017-07-11 22:25] LABS: HEMOGLOBIN 12.1 GM/dL (11.7-16.9); MCH 31.5 pg (25.7-33.7); MCHC 32.6 g/dl (32.0-35.9); MEAN CELL VOLUME 96.7 fl (80-96); MEAN PLT VOLUME 8.9 fl (7.5-11.1); PLATELET COUNT 157 K/MM3 (134-434); RBC 3.83 M/mm3 (4.00-5.60); RDW 17.2 % (11.9-15.9); WHITE BLOOD COUNT 27.8 K/mm3 (4.0-10.0)
[2017-07-11 22:34] LABS: VENOUS PC02 45.5 mmHg (38-52); VENOUS PH 7.26 (7.32-7.42); VENOUS PO2 44.5 mmHg (28-48)
[2017-07-11 22:37] LABS: INR 2.31 (0.82-1.09); PROTHROMBIN TIME (PATIENT) 26.1 SEC (9.98-11.88)
[2017-07-11] MEDS ORDERED: VANCOMYCIN 1,000 MG in DEXTROSE 5%-WATER - 250 ML IVPB ONE (22:46)
[2017-07-11] MEDS ORDERED: PIPERACILLIN/TAZOB 4.5 GM/100 ML PREMIX BAG IVPB ONE (22:47)
[2017-07-11] MEDS ORDERED: SODIUM CHLORIDE 0.9% 500 ML INFUS.BAG IV ONE (23:00)
[2017-07-11] MEDS ORDERED: PIPERACILLIN/TAZOB 4.5 GM 4.5 GM/100 ML BAG IVPB ONE (23:01)
[2017-07-11] MEDS ORDERED: VANCOMYCIN 1 GRAM (PRE-DOCKED) 1,000 MG/250 ML BAG IVPB ONE (23:01)
--- NOTE | 2017-07-11 23:03 | PDOC ---
Attending Attestation - Resident Resident Name: MindyOksana - ED Attending Attestation I have performed the following: I have examined & evaluated the patient, The case was reviewed & discussed with the resident, I agree w/resident's findings & plan, Exceptions are as noted - HPI HPI: 07/11/17 23:02 61 yo male BIBA because he felt dizzy and fell onto his abdomen in his garage. He had c/o chills and weakness earlier today 07/11/17 23:10 - Physicial Exam PE: 07/11/17 23:10 morbidly obese male with ecchymosis on abdomen,denies hitting his head head ncat eyes jim eomi neck supple lungs no crackles CVS irregularly irregular rhythm Right extremity is swollen, chronic venous stasis, erythema Abdomen protuberant Neuro alert and oriented 3, moving all extremities Skin cellulitis, right leg, chronic venous stasis ulcers. Psych appropriate 07/11/17 23:56 - Medical Decision Making 07/11/17 23:57 Patient brought in by ambulance after falling. Patient describes feeling weak with chills earlier in the day. Past medical history morbid obesity, chronic venous stasis ulcers and wounds require wound treatment, diabetes type 2, stage III chronic kidney disease, CHF , atrial fibrillation, gout. PCP Dr. Hudson who requests hospitalist admit the patient Patient found to have a cellulitis . Pt afebrile,lactic normal 1.8. Antibiotics started and patient admitted
[2017-07-11 23:10] LABS: ANISOCYTOSIS 1+; MACROCYTOSIS 1+; PLATELET ESTIMATE ADEQUATE; TOXIC GRANULATION 1+
[2017-07-11 23:20] LABS: ALBUMIN 3.2 g/dl (3.4-5.0); ALK PHOS 98 U/L (45-117); ANION GAP 7 (8-16); BILIRUBIN,TOTAL 0.8 mg/dL (0.2-1.0); BLOOD UREA NITROGEN 64 mg/dL (7-18); CALCIUM 8.1 mg/dL (8.5-10.1); CHLORIDE 106 mmol/L (98-107); CO2 25 mmol/L (21-32); CREATININE 2.4 mg/dL (0.7-1.3); GLUCOSE,RANDOM 195 mg/dL (74-106); POTASSIUM 4.7 mmol/L (3.5-5.1); SGOT/AST 16 U/L (15-37); SGPT/ALT 18 U/L (12-78); SODIUM 138 mmol/L (136-145); TOT PROT 7.7 g/dl (6.4-8.2)
--- NOTE | 2017-07-11 23:51 | HP ---
CHIEF COMPLAINT: Chills, Weakness, s/p fall PCP: Dr. Hudson HISTORY OF PRESENT ILLNESS: 61 y/o man PMH of: Diastolic CHF, CAD, [place] s/p MICHAEL x2, Afib (on Xarelto), CKD Stage 3, DM, DVT, Chronic RLE Ulcers, Gout, ASHLEY, Severe Obesity. Who presents to the ED with chills, weakness s/p fall x today. Patient reports falling on his driveway onto his stomach. Patient reports that his legs gave out on him. Patient denies LOC or Head Trauma. Patient reports having chronic right leg ulcers- treatment at wound care. Patient denies fever, cough, REY, SOB, CP, N/V/D , dysuria ER course was notable for: (1) WBC 27.8 with L- shift (2) BUN 64, Cr 2.4 (baseline) (3) INR 2.31 Recent Travel: None PAST MEDICAL HISTORY: See HPI PAST SURGICAL HISTORY: See HPI Social History: Smoking: Former Alcohol: None Drugs: None Lives with spouse Family History: Allergies Sulfa (Sulfonamide Antibiotics) Allergy (Intermediate, Verified 07/11/17 23:06) Rash HOME MEDICATIONS: Home Medications Medication Instructions Recorded Oxycodone HCl/Acetaminophen 2 combo PO HS PRN 10/31/11 [Percocet 5-325 mg Tablet] Furosemide [Lasix -] 80 mg PO BID@0600,1800 #0 tablet 12/14/11 Glipizide [Glipizide Xl] 10 mg PO BID 02/27/13 Insulin Glargine,Hum.rec.anlog 80 unit SQ DAILY 07/18/13 [Lantus Solostar PEN -] Levothyroxine [Synthroid -] 100 mcg PO DAILY 01/26/14 Rivaroxaban [Xarelto -] 20 mg PO DAILY 10/30/14 Atorvastatin Ca [Lipitor] 80 mg PO HS 09/05/15 Lisinopril 10 mg PO DAILY 09/05/15 Atenolol 100 mg PO BID 07/24/16 Mupirocin Cream [Bactroban 2% 1 applic TP DAILY #1 tube 11/20/16 Cream -] Collagenase Clostridium Hist. 1 applic TP DAILY #90 oint...g. 06/14/17 [Santyl] Liraglutide [Victoza -] 1.8 mg SQ DAILY@0700 07/11/17 REVIEW OF SYSTEMS CONSTITUTIONAL: chills, generalized weakness Absent: fever, diaphoresis, malaise, loss of appetite, weight change HEENT: Absent: rhinorrhea, nasal congestion, throat pain, throat swelling, difficulty swallowing, mouth swelling, ear pain, eye pain, visual changes CARDIOVASCULAR: Absent: chest pain, syncope, palpitations, irregular heart rate, lightheadedness , peripheral edema RESPIRATORY: Absent: cough, shortness of breath, dyspnea with exertion, orthopnea, wheezing, stridor, hemoptysis GASTROINTESTINAL: Absent: abdominal pain, abdominal distension, nausea, vomiting, diarrhea, constipation, melena, hematochezia GENITOURINARY: Absent: dysuria, frequency, urgency, hesitancy, hematuria, flank pain, genital pain MUSCULOSKELETAL: Absent: myalgia, arthralgia, joint swelling, back pain, neck pain SKIN: Absent: rash, itching, pallor HEMATOLOGIC/IMMUNOLOGIC: Absent: easy bleeding, easy bruising, lymphadenopathy, frequent infections ENDOCRINE: Absent: unexplained weight gain, unexplained weight loss, heat intolerance, cold intolerance NEUROLOGIC: unsteady gait Absent: headache, focal weakness or paresthesias, dizziness, seizure, mental status changes, bladder or bowel incontinence PSYCHIATRIC: Absent: anxiety, depression, suicidal or homicidal ideation, hallucinations. PHYSICAL EXAMINATION Vital Signs - 24 hr 07/11/17 21:40 Temperature 97.8 F Pulse Rate 97 H Respiratory 20 Rate Blood Pressure 90/60 O2 Sat by Pulse 100 Oximetry (%) GENERAL: Severe Obesity, awake, alert, and fully oriented, in no acute distress. HEAD: Normal with no signs of trauma. EYES: Pupils equal, round and reactive to light, extraocular movements intact, sclera anicteric, conjunctiva clear. No lid lag. EARS, NOSE, THROAT: Ears normal, nares patent, oropharynx clear without exudates. Moist mucous membranes. NECK: Normal range of motion, supple without lymphadenopathy, JVD, or masses. LUNGS: Breath sounds equal, clear to auscultation bilaterally. No wheezes, and no crackles. No accessory muscle use. HEART: Irregular rate and rhythm, normal S1 and S2 without murmur, rub or gallop. ABDOMEN: Obese, ecchymotic bruising noted to abdomen, generalized tenderness. Soft, not distended, normoactive bowel sounds, no guarding, no rebound, no masses. No hepatomegaly or splenomegaly. MUSCULOSKELETAL: Normal range of motion at all joints. No bony deformities or tenderness. No CVA tenderness. UPPER EXTREMITIES: 2+ pulses, warm, well-perfused. No cyanosis. No clubbing. No peripheral edema. LOWER EXTREMITIES: B/L +3 pitting peripheral edema. 2+ pulses, warm, well- perfused. No calf tenderness. NEUROLOGICAL: Cranial nerves II-XII intact. Normal speech. Gait not observed. PSYCHIATRIC: Cooperative. Good eye contact. Appropriate mood and affect. SKIN:+erythematous RLE ulcer, superficial abrasions to LLE, chronic venous stasis noted, poor turgor, dry, flaky Dressings with compression bandages noted B/L. Warm, dry, no rashes. normal capillary refill. Laboratory Results - last 24 hr 07/11/17 07/11/17 07/11/17 22:00 22:00 22:00 WBC 27.8 H D RBC 3.83 L Hgb 12.1 Hct 37.0 MCV 96.7 H MCH 31.5 MCHC 32.6 RDW 17.2 H Plt Count 157 MPV 8.9 Total Counted 100 Neutrophils % No Result Required. Neutrophils % (Manual) 87.0 H Band Neutrophils % 9.0 Lymphocytes % No Result Required. Lymphocytes % (Manual) 3.0 L Monocytes % (Manual) 1 L Differential Comment Man diff performed Toxic Granulation 1+ Platelet Estimate Adequate Platelet Comment Few giant plt noted. Polychromasia 1+ Anisocytosis 1+ Macrocytosis 1+ PT with INR 26.10 H INR 2.31 H PTT (Actin FS) 36.0 H VBG pH 7.26 L POC VBG pCO2 45.5 POC VBG pO2 44.5 D Mixed VBG HCO3 19.6 Sodium Potassium Chloride Carbon Dioxide Anion Gap BUN Creatinine Creat Clearance w eGFR Random Glucose Lactic Acid Calcium Total Bilirubin AST ALT Alkaline Phosphatase Troponin I Total Protein Albumin 07/11/17 07/11/17 07/11/17 22:00 22:00 22:00 WBC RBC Hgb Hct MCV MCH MCHC RDW Plt Count MPV Total Counted Neutrophils % Neutrophils % (Manual) Band Neutrophils % Lymphocytes % Lymphocytes % (Manual) Monocytes % (Manual) Differential Comment Toxic Granulation Platelet Estimate Platelet Comment Polychromasia Anisocytosis Macrocytosis PT with INR INR PTT (Actin FS) VBG pH POC VBG pCO2 POC VBG pO2 Mixed VBG HCO3 Sodium 138 Potassium 4.7 D Chloride 106 D Carbon Dioxide 25 Anion Gap 7 L BUN 64 H Creatinine 2.4 H Creat Clearance w eGFR 27.57 Random Glucose 195 H Lactic Acid 1.8 Calcium 8.1 L Total Bilirubin 0.8 D AST 16 D ALT 18 D Alkaline Phosphatase 98 D Troponin I 0.03 D Total Protein 7.7 Albumin 3.2 L ASSESSMENT/PLAN: 61 y/o man Admitted for Cellulitis of R- Leg. Plan: 1. ID Cellulitis of Right Lower Leg Abrasions LLE - hx Chronic Ulcers - Blood Cultures-pending - Wound Culture-pending - Vancomycin, Zosyn given in ED, will continue - Appreciate ID consult - Appreciate Vascular consult - Wound care - Duplex of LE r/o DVT - Monitor vitals - Monitor CBC - Elevate extremity 2. Cardiology Atrial Fibrillation CAD CHF Hypertension Hyperlipidemia - s/p MICHAEL x2 - [id number] Score 4 - Continue Xarelto -INR 2.31 - EKG- reviewed - Continue home meds with parameters - Monitor vitals - Monitor renal function 3. Nephrology CKD Stage 3 - stable - Cr 2.4 at baseline - Avoid nephrotoxic drugs - Monitor renal function - Consider Nephrology if condition worsens 4. Endocrinology Diabetes Mellitus Type II - BGMs - ISS - hold home meds for now, have Day team reassess in am - BMP in am - HgbA1c in am 5. Vascular History of PE History of DVT - Continue Xarelto 6. Gout - stable - Continue home med 7. Pulm ASHLEY - CPAP hs 8. Severe Obesity - Carb Control diet - RD - f/u with Bariatrics outpatient - CPAP for ASHLEY 9. FEN - Replete lytes prn - Carb Control, Low Na, Diabetic Diet 10. DVT ppx - Continue Xarelto - TEDs Code Status: Full Code Dispo: Requires Inpatient Care Problem List - Problem (1) Cellulitis of right leg Code(s): L03.115 - CELLULITIS OF RIGHT LOWER LIMB (2) Venous ulcer Code(s): I87.8 - OTHER SPECIFIED DISORDERS OF VEINS (3) CAD (coronary artery disease) Code(s): I25.10 - ATHSCL HEART DISEASE OF [place] CORONARY ARTERY W/O ANG PCTRS (4) CHF (congestive heart failure) Code(s): I50.9 - HEART FAILURE, UNSPECIFIED (5) Diabetes Code(s): E11.9 - TYPE 2 DIABETES MELLITUS WITHOUT COMPLICATIONS Qualifiers: Diabetes mellitus type: type 2 Diabetes mellitus complication status: with circulatory complication (6) Renal failure Code(s): N19 - UNSPECIFIED KIDNEY FAILURE (7) DVT (deep venous thrombosis) Code(s): I82.409 - ACUTE EMBOLISM AND THOMBOS UNSP DEEP VN UNSP LOWER EXTREMITY Qualifiers: DVT location: lower extremity Affected thrombotic vein of extremity: femoral Chronicity: chronic Laterality: right Qualified Code(s): I82.511 - Chronic embolism and thrombosis of right femoral vein (8) Dyslipidemia Code(s): E78.5 - HYPERLIPIDEMIA, UNSPECIFIED (9) Hypothyroid Code(s): E03.9 - HYPOTHYROIDISM, UNSPECIFIED (10) Obesities, morbid Code(s): E66.01 - MORBID (SEVERE) OBESITY DUE TO EXCESS CALORIES (11) Venous (peripheral) insufficiency Code(s): I87.2 - VENOUS INSUFFICIENCY (CHRONIC) (PERIPHERAL) Visit type - Emergency Visit Emergency Visit: Yes ED Registration Date: 07/11/17 Care time: The patient presented to the Emergency Department on the above date and was hospitalized for further evaluation of their emergent condition. - New Patient This patient is new to me today: Yes Date on this admission: 07/11/17 - Critical Care Critical Care patient: No Hospitalist Screening - Colonoscopy Questionnaire Colonoscopy Questionnaire: Colonoscopy Questionnaire - Patient: 50 - 75 years old and never had a screening colonoscopy: No History of colon or rectal polyps, or CA: No History of IBD, Crohn's disease or UC: No History of abdominal radiation therapy as a child: No - Relative: 1 with colon or rectal CA, or polyps at age 60 or younger: No Colon or rectal CA diagnosed at age 45 or younger: No Multiple relatives with colon or rectal CA: No - Outcome: Screening Result: Negative Screen
[2017-07-12] MEDS ORDERED: PIPERACILLIN/TAZOB 4.5 GM 4.5 GM in DEXTROSE 5%-WATER 100 ML IVPB ONE (05:00)
[2017-07-12] MEDS ORDERED: ACETAMINOPHEN 325 MG TABLET (FP) PO PRN (05:47)
[2017-07-12] MEDS ORDERED: ACETAMINOPHEN 325 MG TABLET (FP) ONE ×2 (06:03→13:35)
[2017-07-12] MEDS ORDERED: PIPERACILLIN/TAZOB 4.5 GM 4.5 GM/100 ML BAG IVPB ONE (06:31)
[2017-07-12] MEDS: INSULIN (LEVEMIR) 100 UNITS/ML UNITS SQ SCH (07:00)
[2017-07-12 07:08] LABS: BASO % 0.3 % (0-2.0); HEMATOCRIT 32.1 % (35.4-49); HEMOGLOBIN 10.3 GM/dL (11.7-16.9); MCH 31.1 pg (25.7-33.7); MEAN PLT VOLUME 8.4 fl (7.5-11.1); MONO % 2.8 % (3.8-10.2); NEUT % 94.9 % (42.8-82.8); PLATELET COUNT 132 K/MM3 (134-434); RBC 3.31 M/mm3 (4.00-5.60); RDW 17.2 % (11.9-15.9); WHITE BLOOD COUNT 22.2 K/mm3 (4.0-10.0)
[2017-07-12 07:24] LABS: INR 2.1 (0.82-1.09); PROTHROMBIN TIME (PATIENT) 23.7 SEC (9.98-11.88)
[2017-07-12 07:32] LABS: URINE APPEARANCE SLCLOUDY; URINE BILIRUBIN NEGATIVE (<2.0 mg/dL); URINE COLOR YELLOW; URINE GLUCOSE (UA) NEGATIVE (NEGATIVE); URINE KETONE NEGATIVE (NEGATIVE); URINE LEUK ESTERASE NEGATIVE (NEGATIVE); URINE NITRITE NEGATIVE (NEGATIVE); URINE UROBILINOGEN NEGATIVE mg/dL (0.2-1.0)
[2017-07-12 07:35] LABS: ANION GAP 6 (8-16); BLOOD UREA NITROGEN 63 mg/dL (7-18); CALCIUM 7.7 mg/dL (8.5-10.1); CHLORIDE 106 mmol/L (98-107); CO2 26 mmol/L (21-32); CREATININE 2.4 mg/dL (0.7-1.3); GLUCOSE,RANDOM 210 mg/dL (74-106); POTASSIUM 4.6 mmol/L (3.5-5.1); SODIUM 138 mmol/L (136-145)
[2017-07-12 07:46] LABS: URINE PROTEIN 2+ (NEGATIVE)
[2017-07-12 07:48] LABS: EPI CELLS RARE /HPF (FEW); URINE HYALINE CAST 1 /lpf; URINE MUCUS RARE
--- NOTE | 2017-07-12 08:09 | PN ---
Progress Note, Physician Chief Complaint: 61 Y.O m WITH HX OF MULTIPLE ADMISSIONS FOR CELLULITIS rle AND CHRONIC dvt rle FELT FEVERS, NAUSEA, CHILLS, INCREASED SWELLING rle, WEAKNESS rle AND FELL, UNABLE TO GET UP. History of Present Illness: Morbid obesity. ASHLEY. Bilateral PE. Pulmonary HTN-CTEPH AND CLASS 2 PAH. CHF-mostly diastolic. ASHD. STEMI in 2016 with MICHAEL x2 placed at [facility]. Chronic A.Fib-on a/c-Xarelto/ASA now. Gout. 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 Chronic DVT Right thigh, Stasis ulcers, edema. Chronic wound right Ankle/dobbs-RX at [facility]-groing multiple organisms. - Current Medication List Current Medications: Active Medications Acetaminophen (Tylenol -) 650 mg PO Q8H PRN PRN Reason: FEVER Atorvastatin Calcium (Lipitor -) 80 mg PO HS [facility] Collagenase (Santyl -) 1 applic TP DAILY [facility] Furosemide (Lasix -) 80 mg PO BID@0600,1800 [facility] Glipizide (Glucotrol Xl -) 10 mg PO BID [facility] Vancomycin HCl 1,500 mg/ (Dextrose) 500 mls @ 250 mls/hr IVPB Q24H [facility] Levothyroxine Sodium (Synthroid -) 100 mcg PO DAILY@0700 [facility] Liraglutide (Victoza -) 1.8 mg SQ DAILY@0700 [facility] Lisinopril (Prinivil) 10 mg PO DAILY [facility] Non-Formulary Medication (Atenolol) 100 mg PO BID [facility] Non-Formulary Medication (Insulin Glargine,Hum.Rec.Anlog) 80 unit SQ DAILY [facility] Oxycodone/Acetaminophen (Percocet 5/325 -) 2 combo PO HS [facility] Piperacillin/Tazobactam/Dextrose (Zosyn 4.5gm Ivpb (Premix)) 4.5 gm IVPB Q6H- IV NEIL Rivaroxaban (Xarelto -) 20 mg PO DAILY@1730 [facility] - Objective Vital Signs: Vital Signs Temperature 97.5 F L 07/12/17 07:04 Pulse Rate 84 07/12/17 07:04 Respiratory Rate 17 07/12/17 07:04 Blood Pressure 103/36 07/12/17 07:04 O2 Sat by Pulse Oximetry (%) 100 07/12/17 06:40 Constitutional: Yes: Anxious, Moderate Distress HENT: Yes: Atraumatic, Normocephalic Neck: Yes: Supple Cardiovascular: Yes: Pulse Irregular (a.FIB) Respiratory: Yes: CTA Bilaterally, On BiPap (NIGHTS), On Nasal O2 Gastrointestinal: Yes: Normal Bowel Sounds, Soft, Abdomen, Obese ...Rectal Exam: Yes: Deferred Genitourinary: No: Anuria, Bladder Distention Breast(s): Yes: WNL Musculoskeletal: Yes: Back Pain Extremities: Yes: Erythema (rle) Edema: Yes Edema: RLE: 3+ Peripheral Pulses WNL: No Integumentary: Yes: Venous Stasis Changes, Other (sTASIS MULTIPLE ULCERS rle WITH ODOR) Neurological: Yes: Alert, Oriented ...Motor Strength: WNL Psychiatric: Yes: WNL Labs: CBC, BMP 07/12/17 06:00 INR, PTT INR 2.10 (0.82-1.09) H 07/12/17 06:00 Laboratory Results - last 24 hr 07/11/17 07/11/17 07/11/17 22:00 22:00 22:00 WBC 27.8 H D RBC 3.83 L Hgb 12.1 Hct 37.0 MCV 96.7 H MCH 31.5 MCHC 32.6 RDW 17.2 H Plt Count 157 MPV 8.9 Total Counted 100 Neutrophils % No Result Required. Neutrophils % (Manual) 87.0 H Band Neutrophils % 9.0 Lymphocytes % No Result Required. Lymphocytes % (Manual) 3.0 L Monocytes % Monocytes % (Manual) 1 L Eosinophils % Basophils % Differential Comment Man diff performed Toxic Granulation 1+ Platelet Estimate Adequate Platelet Comment Few giant plt noted. Polychromasia 1+ Anisocytosis 1+ Macrocytosis 1+ PT with INR 26.10 H INR 2.31 H PTT (Actin FS) 36.0 H VBG pH 7.26 L POC VBG pCO2 45.5 POC VBG pO2 44.5 D Mixed VBG HCO3 19.6 Sodium Potassium Chloride Carbon Dioxide Anion Gap BUN Creatinine Creat Clearance w eGFR Random Glucose Lactic Acid Calcium Total Bilirubin AST ALT Alkaline Phosphatase Troponin I Total Protein Albumin Urine Color Urine Appearance Urine pH Ur Specific [place] Urine Protein Urine Glucose (UA) Urine Ketones Urine Blood Urine Nitrite Urine Bilirubin Urine Urobilinogen Ur Leukocyte Esterase Urine WBC (Auto) Urine RBC (Auto) Ur Epithelial Cells Hyaline Casts Urine Mucus 07/11/17 07/11/17 07/11/17 22:00 22:00 22:00 WBC RBC Hgb Hct MCV MCH MCHC RDW Plt Count MPV Total Counted Neutrophils % Neutrophils % (Manual) Band Neutrophils % Lymphocytes % Lymphocytes % (Manual) Monocytes % Monocytes % (Manual) Eosinophils % Basophils % Differential Comment Toxic Granulation Platelet Estimate Platelet Comment Polychromasia Anisocytosis Macrocytosis PT with INR INR PTT (Actin FS) VBG pH POC VBG pCO2 POC VBG pO2 Mixed VBG HCO3 Sodium 138 Potassium 4.7 D Chloride 106 D Carbon Dioxide 25 Anion Gap 7 L BUN 64 H Creatinine 2.4 H Creat Clearance w eGFR 27.57 Random Glucose 195 H Lactic Acid 1.8 Calcium 8.1 L Total Bilirubin 0.8 D AST 16 D ALT 18 D Alkaline Phosphatase 98 D Troponin I 0.03 D Total Protein 7.7 Albumin 3.2 L Urine Color Urine Appearance Urine pH Ur Specific [place] Urine Protein Urine Glucose (UA) Urine Ketones Urine Blood Urine Nitrite Urine Bilirubin Urine Urobilinogen Ur Leukocyte Esterase Urine WBC (Auto) Urine RBC (Auto) Ur Epithelial Cells Hyaline Casts Urine Mucus 07/12/17 07/12/17 07/12/17 06:00 06:00 07:20 WBC 22.2 H RBC 3.31 L Hgb 10.3 L D Hct 32.1 L MCV 97.0 H MCH 31.1 MCHC 32.0 RDW 17.2 H Plt Count 132 L MPV 8.4 Total Counted Neutrophils % 94.9 H D Neutrophils % (Manual) Band Neutrophils % Lymphocytes % 2.0 L D Lymphocytes % (Manual) Monocytes % 2.8 L Monocytes % (Manual) Eosinophils % 0.0 D Basophils % 0.3 Differential Comment Toxic Granulation Platelet Estimate Platelet Comment Polychromasia Anisocytosis Macrocytosis PT with INR 23.70 H INR 2.10 H PTT (Actin FS) VBG pH POC VBG pCO2 POC VBG pO2 Mixed VBG HCO3 Sodium Potassium Chloride Carbon Dioxide Anion Gap BUN Creatinine Creat Clearance w eGFR Random Glucose Lactic Acid Calcium Total Bilirubin AST ALT Alkaline Phosphatase Troponin I Total Protein Albumin Urine Color Yellow Urine Appearance Slcloudy Urine pH 5.0 Ur Specific [place] 1.013 Urine Protein 2+ H Urine Glucose (UA) Negative Urine Ketones Negative Urine Blood Negative Urine Nitrite Negative Urine Bilirubin Negative Urine Urobilinogen Negative Ur Leukocyte Esterase Negative Urine WBC (Auto) 1 Urine RBC (Auto) 3 Ur Epithelial Cells Rare Hyaline Casts 1 Urine Mucus Rare - ....Imaging Chest X-ray: Image Reviewed Problem List - Problems (1) Atrial fibrillation Assessment/Plan: a/c, RATE CONTROL ADMIT TO MED.SURG Code(s): I48.91 - UNSPECIFIED ATRIAL FIBRILLATION Qualifiers: Atrial fibrillation type: chronic Qualified Code(s): I48.2 - Chronic atrial fibrillation (2) CHF (congestive heart failure) Code(s): I50.9 - HEART FAILURE, UNSPECIFIED (3) Cellulitis of right leg Assessment/Plan: IV ABX Code(s): L03.115 - CELLULITIS OF RIGHT LOWER LIMB (4) Diabetes Code(s): E11.9 - TYPE 2 DIABETES MELLITUS WITHOUT COMPLICATIONS Qualifiers: Diabetes mellitus type: type 2 Diabetes mellitus complication status: with circulatory complication
[2017-07-12] MEDS ORDERED: LEVOTHYROXINE NA 25 MCG TABLET (FP) ONE ×2 (08:23→08:26)
[2017-07-12] MEDS: LEVOTHYROXINE NA 100 MCG TABLET (FP) PO SCH (08:52)
[2017-07-12] MEDS ORDERED: PIPERACILLIN/TAZOB 4.5 GM/100 ML PREMIX BAG IVPB SCH (09:00)
--- NOTE | 2017-07-12 09:03 | CON.CARD ---
Cardiology Consult (text) - Consultation Consultation Note: Cardiology consult dictated IMP: Fall RLE cellulitis Morbid obesity PHTN Chronic AF, on Xarelto, currently rate controlled CAD s/p PCI REC: Rx of cellulitis as per PMD, f/u cultures Agree w/ LE Venous Duplex Echo to assess LV fx and PHTN Ok for med-surg floor Thank you.
[2017-07-12] MEDS ORDERED: INSULIN GLARGINE HUM REC ANLOG 80 UNIT SQ SCH (10:00)
--- NOTE | 2017-07-12 10:45 | CONS ---
DATE OF CONSULTATION: DATE OF DICTATION: 07/12/2017 CARDIOLOGY CONSULTATION REQUESTED BY: Keyno Hudson MD REASON FOR CONSULTATION: The consultation is requested for atrial fibrillation and coronary disease, status post fall. HISTORY OF PRESENT ILLNESS: Patient is a 61-year-old male with morbid obesity, COPD, pulmonary hypertension, coronary artery disease, status post PCI, chronic atrial fibrillation, gout, and chronic renal insufficiency who presents to the emergency room after a fall. He describes his right lower extremity becoming more erythematous and swollen over the last few days. In the emergency room, he was found to have a low-grade fever. Patient states he was walking in his driveway when his legs gave out on him and fell forward onto this stomach. He denies head trauma or loss of consciousness. He denies chest pain, palpitations. He does have chronic dyspnea on exertion. PAST MEDICAL HISTORY: As above. Also includes chronic diastolic CHF, diabetes, history of DVT, and right lower extremity ulcers for which he is followed in wound care. ALLERGIES: SULFA. CURRENT MEDICATIONS: Include Tylenol 650 p.o. q.8 p.r.n., Lipitor 80 mg nightly, collagenase Lasix 80 mg p.o. b.i.d., Glucotrol 10 mg p.o. b.i.d., Synthroid 100 mcg p.o. daily for hypothyroidism, Victoza 1.8 mg subcu daily, lisinopril 10 mg p.o. daily, atenolol 100 mg p.o. b.i.d., Percocet p.r.n., Zosyn, Xarelto 20 mg p.o. daily, vancomycin. FAMILY HISTORY: Noncontributory. SOCIAL HISTORY: Quit smoking 25 years ago. PHYSICAL EXAM: T-max 100.6, T-current 97.5, pulse 84 irregular, blood pressure 103/40. Neck: No JVD. Heart: S1, 2 irregular. Chest: Decreased breath sounds. No rales. Abdomen: Obese, soft, nontender. Extremities: Chronic venous stasis changes, chronic lymphedema. Right lower extremity with erythema up to the mid-thigh and 2+ edema. MICROBIOLOGY: Blood cultures pending. LABORATORIES: White count 22.2, hematocrit 32, platelets 132, neutrophil shift 87%. INR 2.1. Sodium 138, potassium 4.6, creatinine 2.4. TSH 2. Troponin negative x1 set. Urinalysis shows 2+ protein otherwise negative. CHEST X-RAY: Poor respiratory effort, cannot rule out bilateral effusions, portable film. Would repeat film as a PA and lateral. ECG: Atrial fibrillation at 88 beats per minute with incomplete right bundle branch block, nonspecific ST changes and low voltage. IMPRESSION: 1. Fall, mechanical. 2. Right lower extremity cellulitis. 3. Morbid obesity. 4. Pulmonary hypertension. 5. Chronic atrial fibrillation, on Xarelto, currently rate controlled. 6. Coronary disease, status post percutaneous coronary intervention. RECOMMENDATIONS: 1. Treatment of cellulitis as per PMD, follow up culture results. 2. Agree with lower extremity venous duplex to rule out DVT. 3. Echo for assessment of LV function, pulmonary hypertension assessment. 4. Patient is stable for medical/surgical floor, does not need telemetry at this point. Thank you for the consultation. Will discuss with patient his use of antiplatelet therapy, currently he is on Xarelto only for atrial fibrillation; should probably be on at least 1 antiplatelet agent barring any medical contraindications. DOMINGO MOSLEY M.D. [id number]
[2017-07-12] MEDS: glipiZIDE-XL 10 MG TAB.ER.24 (FP) PO SCH ×2 (12:08→22:38)
[2017-07-12] MEDS: LISINOPRIL 10 MG TABLET (FP) PO SCH (12:08)
[2017-07-12] MEDS: ATENOLOL 50 MG TABLET (FP) PO SCH ×2 (12:09→21:28)
[2017-07-12] MEDS: ASPIRIN 81 MG CHEWABLE TABLETS PO SCH (12:09)
[2017-07-12] MEDS: COLLAGENASE CLOSTRIDIUM HIST. 30 GRAMS TUBE TP SCH (12:09)
--- NOTE | 2017-07-12 12:19 | EKG ---
Test Reason : Blood Pressure : / mmHG Vent. Rate : 083 BPM Atrial Rate : 096 BPM P-R Int : 000 ms QRS Dur : 106 ms QT Int : 408 ms P-R-T Axes : 000 088 129 degrees QTc Int : 479 ms ATRIAL FIBRILLATION LOW VOLTAGE QRS SEPTAL INFARCT , AGE UNDETERMINED ABNORMAL ECG WHEN COMPARED WITH ECG OF 23-MAR-2017 13:48, COMPARED TO EKG NO SIGNIFICANT CHANGE IS FOUND Confirmed by USHA CUMMINGS MD ([id number]) on 07/12/2017 12:19:25 PM Referred By: Confirmed By:USHA CUMMINGS MD
--- NOTE | 2017-07-12 13:21 | CONSULT ---
- Consultation REQUESTING PROVIDER: Angel Gotti DO CONSULT REQUEST: We have been asked to surgically evaluate this patient for chronic RLE wound PCP: Keyon Hudson HISTORY OF PRESENT ILLNESS: 61 y/o morbidly obese male, very well know to [facility]. as he is followed by Dr. Gotti. Today, presents to the ED s/p mechanical fall in his driveway. States his legs gave out on him. Informs me that he just drove in from [place]. and fell while exiting the vehicle. Denies feeling palpitations, CP, SOB, feeling lightheaded or dizzy prior to fall. Denies LOC head trauma s/p fall. States he's feels like he's had the chills the past few days. Took a couple of Tylenol which seem to make him feel better. Denies fever , n/v/d or dysuria PMHx: Morbidly obese, DCHF, CAD, PR, Afib, CKD Stage 3, DM, DVT, RLE ulcer, Venous stasis, Gout, ASHLEY PSHx: MICHAEL x2 Home Meds Oxycodone HCl/Acetaminophen 2 combo PO HS PRN 10/31/11 Furosemide [Lasix -] 80 mg PO BID@0600,1800 #0 tablet 12/14/11 Glipizide [Glipizide Xl] 10 mg PO BID 02/27/13 Insulin Glargine,Hum.rec.anlog 80 unit SQ DAILY 07/18/13 [Lantus Solostar PEN -] Levothyroxine [Synthroid -] 100 mcg PO DAILY 01/26/14 Rivaroxaban [Xarelto -] 20 mg PO DAILY 10/30/14 Atorvastatin Ca [Lipitor] 80 mg PO HS 09/05/15 Lisinopril 10 mg PO DAILY 09/05/15 Atenolol 100 mg PO BID 07/24/16 Mupirocin Cream [Bactroban 2% 1 applic TP DAILY #1 tube 11/20/16 Collagenase Clostridium Hist. 1 applic TP DAILY #90 oint...g. 06/14/17 Liraglutide [Victoza -] 1.8 mg SQ DAILY@0700 07/11/17 Allergies: Sulfa (rash) ROS: Systems reviewed and considered negative except for what's contained in HPI PE: GENERAL: Awake, alert, nad HEAD: NC. AT. EYES: PERRL, sclera anicteric, conjunctiva clear. LUNGS: CTA bilat HEART: Afib (rate controlled) ABDOMEN: morbidly obese body habitus MUSCULOSKELETAL: Normal ROM at all joints. No bony deformities or tenderness. UE: 2+ pulses, warm, well-perfused. No cyanosis. Cap refill <2 seconds. No peripheral edema. LE: Chronic venous stasis changes to mid-calf extending distally to ankles bilat. + peripheral edema. Hard to assess pulses due to swelling. feet are warm bilat. No calf tenderness bilat. +erythematous RLE ulcer, superficial abrasions to LLE PSYCH: Cooperative. Good eye contact. Appropriate mood and affect. Last Vital Signs Temp Pulse Resp BP Pulse Ox 97.5 F L 89 20 89/50 92 L 07/12/17 07:04 07/12/17 12:00 07/12/17 12:00 07/12/17 12:00 07/12/17 12:00 TRENDS 07/11/17 07/11/17 07/12/17 22:00 22:00 06:00 WBC 27.8 H D 22.2 BUN 64 H 63 H Creatinine 2.4 H 2.4 H INR, PTT INR 2.10 (0.82-1.09) H 07/12/17 06:00 Urine Test Results Urine Color Yellow 07/12/17 07:20 Urine Appearance Slcloudy 07/12/17 07:20 Urine pH 5.0 (5.0-8.0) 07/12/17 07:20 Ur Specific [place] 1.013 (1.001-1.035) 07/12/17 07:20 Urine Protein 2+ (NEGATIVE) H 07/12/17 07:20 Urine Glucose (UA) Negative (NEGATIVE) 07/12/17 07:20 Urine Ketones Negative (NEGATIVE) 07/12/17 07:20 Urine Blood Negative (NEGATIVE) 07/12/17 07:20 Urine Nitrite Negative (NEGATIVE) 07/12/17 07:20 Urine Bilirubin Negative (<2.0 mg/dL) 07/12/17 07:20 Ur Leukocyte Esterase Negative (NEGATIVE) 07/12/17 07:20 Ur Epithelial Cells Rare /HPF (FEW) 07/12/17 07:20 Urine Mucus Rare 07/12/17 07:20 Problem List - Problems (1) Cellulitis of right leg Assessment/Plan: IV abx f/u wound cultures trend wbc Monitor BUN/Cr (CKD) DVT ppx Tight glycemic control OOB and ambulate with assistance Daily dressing changes with xeroform to rle ulcer. Cover with 4x4/abd/kerlix/ light jasmyne bandage Elevate LE while in bed or seated in chair (will help with edema) DCHF management per Cardio No surgical intervention Above plan discussed with Shen. On behalf of Dr. Gotti, thank you for the opportunity to participate in your patient's care. Code(s): L03.115 - CELLULITIS OF RIGHT LOWER LIMB (2) Atrial fibrillation Code(s): I48.91 - UNSPECIFIED ATRIAL FIBRILLATION Qualifiers: Atrial fibrillation type: chronic Qualified Code(s): I48.2 - Chronic atrial fibrillation (3) Obesities, morbid Code(s): E66.01 - MORBID (SEVERE) OBESITY DUE TO EXCESS CALORIES Visit type - Case Type Case Type: ED Admission - Emergency Emergency Visit: Yes ED Registration Date: 07/12/17 Care time: The patient presented to the Emergency Department on the above date and was hospitalized for further evaluation of their emergent condition. - New patient This patient is new to me today: Yes Date on this admission: 07/12/17
[2017-07-12] MEDS: ACETAMINOPHEN 325 MG TABLET (FP) PO PRN (13:38)
--- NOTE | 2017-07-12 14:49 | PN ---
Progress Note (short form) - Note Progress Note: PULMONARY CONSULTATION DICTATED 07/12/17 IMP CELLULITIS S/P MECHANICAL FALL CHF ASHD S/P PCI OSAS AFIB H/O DVT/PE PULMONARY HTN MORBID OBESITY CKD PLAN LASIX O2 ABX INHALED BRONCHODILATORS BIPAP AT NIGHT LASIX AC CULTURES MONITOR LYTES,RENAL FUNCTION DR MACHADO Problem List - Problems (1) Accident due to mechanical fall without injury Code(s): W19.XXXA - UNSPECIFIED FALL, INITIAL ENCOUNTER (2) Atrial fibrillation Code(s): I48.91 - UNSPECIFIED ATRIAL FIBRILLATION Qualifiers: Atrial fibrillation type: chronic Qualified Code(s): I48.2 - Chronic atrial fibrillation (3) CAD (coronary artery disease) Code(s): I25.10 - ATHSCL HEART DISEASE OF [place] CORONARY ARTERY W/O ANG PCTRS (4) CHF (congestive heart failure) Code(s): I50.9 - HEART FAILURE, UNSPECIFIED (5) DVT (deep venous thrombosis) Code(s): I82.409 - ACUTE EMBOLISM AND THOMBOS UNSP DEEP VN UNSP LOWER EXTREMITY Qualifiers: DVT location: lower extremity Affected thrombotic vein of extremity: femoral Chronicity: chronic Laterality: right Qualified Code(s): I82.511 - Chronic embolism and thrombosis of right femoral vein (6) Obesities, morbid Code(s): E66.01 - MORBID (SEVERE) OBESITY DUE TO EXCESS CALORIES (7) Pulmonary embolism Code(s): I26.99 - OTHER PULMONARY EMBOLISM WITHOUT ACUTE COR PULMONALE (8) Venous (peripheral) insufficiency Code(s): I87.2 - VENOUS INSUFFICIENCY (CHRONIC) (PERIPHERAL) (9) Sleep apnea Code(s): G47.30 - SLEEP APNEA, UNSPECIFIED (10) COPD (chronic obstructive pulmonary disease) Code(s): J44.9 - CHRONIC OBSTRUCTIVE PULMONARY DISEASE, UNSPECIFIED (11) Pulmonary HTN Code(s): I27.20 - PULMONARY HYPERTENSION, UNSPECIFIED (12) Dyspnea Code(s): R06.00 - DYSPNEA, UNSPECIFIED (13) Cellulitis Code(s): L03.90 - CELLULITIS, UNSPECIFIED
[2017-07-12] MEDS: ALBUTEROL SO4 2.5/IPRATROPIUM 0.5 INH SOL 3 ML VIAL.NEB. NEB SCH ×2 (17:17→20:31)
[2017-07-12] MEDS: FUROSEMIDE 40 MG TABLET (FP) PO SCH (18:28)
--- NOTE | 2017-07-12 19:02 | CONS ---
DATE OF CONSULTATION: 07/12/2017 REFERRING PHYSICIAN: Keyon Hudson MD The patient is a 61-year-old white male with morbid obesity, COPD, pulmonary hypertension, history of pulmonary emboli, chronic atrial fibrillation, ASHD, status post PCI, gout, chronic kidney disease, long-standing history of tobacco use, quit about 20 years ago, obstructive sleep apnea, maintained on BiPAP, admitted to [facility] status post mechanical fall. Patient denied any complaints of chest pain, nausea, vomiting, diaphoresis prior to the fall. Denied any loss of consciousness. He states he was walking and fell. He describes that he noticed right lower extremity becoming more and more erythematous and swollen over the past couple of days. In the ER, he was noted to have a low-grade temperature. He underwent a duplex which was negative. He was started broad-spectrum antibiotics for possible cellulitis. He also states he recently has been complaining of increasing shortness of breath. Past medical history again includes diastolic heart failure, diabetes, DVT, pulmonary emboli, history of lower extremity ulcers, ASHD, status post stent, chronic atrial fibrillation, gout, chronic kidney disease, pulmonary hypertension, morbid obesity, obstructive sleep apnea, COPD, and history of asbestos exposure. REVIEW OF SYSTEMS: Positive dyspnea, positive orthopnea. No chest pain, no palpitation, no nausea, no vomiting, no abdominal pain. Positive lower extremity edema and discomfort. Current medications include Prinivil, Tylenol, Zosyn, vancomycin, Xarelto, Tenormin, Lipitor, Victoza, Levemir, Lasix, aspirin, Roxicodone, Santyl, Glucotrol, and Synthroid. PHYSICAL EXAMINATION: General: The patient is a morbidly obese male, awake, alert, in no acute respiratory distress. Vital Signs: T-max 100.6, currently 97.5. Blood pressure is 89/50. Respiratory rate 20. O2 saturation is 90% on room air. HEENT: Normocephalic, atraumatic. Neck: Supple. Heart: Irregularly irregular. S1, S2. Chest: Diminished breath sounds bilaterally. Abdomen: Soft. Bowel sounds positive. Extremities: Lower extremity edema, right greater than left. LABORATORY DATA: BUN 63, creatinine 2.4. WBC 22.2, hemoglobin 10.3, hematocrit 32.1, platelet count of 133,000. INR is 2.10. Venous blood gas: pH 7.26, pCO2 of 45, with pO2 of 45. Chest x-ray: Mild congestion. Duplex negative. IMPRESSION: 1. Status post mechanical fall. 2. Advanced chronic obstructive pulmonary disease. 3. Congestive heart failure. 4. Atrial fibrillation. 5. Pulmonary hypertension. 6. History of atrial fibrillation. 7. History of deep vein thrombosis, pulmonary embolism. 8. Obstructive sleep apnea. 9. Arteriosclerotic heart disease, status post stent. PLAN: Continue IV Lasix, supplemental O2, antibiotics as per Infectious Disease. Inhaled bronchodilators. Also check O2 saturation prior to discharge to determine whether the patient is a candidate for home O2. Weight reduction. BiPAP at night. Daily weights. RADHA MACHADO M.D. ALEJANDRO/[id number]
[2017-07-12] MEDS ORDERED: PT OWN MED DRAWER 7, Y5N ONE (21:07)
[2017-07-12] MEDS: oxyCODONE HCL 5 MG TABLET PO SCH (21:21)
[2017-07-12] MEDS: ACETAMINOPHEN 325 MG TABLET (FP) PO SCH (21:21)
[2017-07-12] MEDS: ATORVASTATIN CA 80 MG TABLET (FP) PO SCH (21:22)
[2017-07-12] MEDS: RIVAROXABAN 20 MG TABLET PO SCH (23:17)
[2017-07-13] MEDS ORDERED: DEXTROSE 5%-WATER - 50 ML IVPB ONE ×3 (01:46→17:32)
[2017-07-13] MEDS ORDERED: PIPERACILLIN/TAZOBACTAM 3.375 GM VIAL IVPB ONE ×2 (01:46→13:24)
[2017-07-13] MEDS: PIPERACILLIN/TAZOB 3.375 GM 3.375 GM in DEXTROSE 5%-WATER - 50 ML IVPB SCH ×2 (01:49→11:00)
[2017-07-13] MEDS: INSULIN (LEVEMIR) 100 UNITS/ML UNITS SQ SCH (06:42)
[2017-07-13] MEDS: LEVOTHYROXINE NA 100 MCG TABLET (FP) PO SCH (06:43)
[2017-07-13] MEDS: LIRAGLUTIDE 0.6 MG/0.1 ML PEN.INJCTR SQ SCH (06:44)
[2017-07-13] MEDS: FUROSEMIDE 40 MG TABLET (FP) PO SCH (06:57)
[2017-07-13 07:57] LABS: BASO % 0.3 % (0-2.0); EOS % 0.6 % (0-4.5); HEMATOCRIT 30.1 % (35.4-49); HEMOGLOBIN 9.7 GM/dL (11.7-16.9); LYMPH % 4.2 % (8-40); MCH 31.4 pg (25.7-33.7); MCHC 32.2 g/dl (32.0-35.9); MEAN CELL VOLUME 97.4 fl (80-96); MEAN PLT VOLUME 8.7 fl (7.5-11.1); MONO % 5.6 % (3.8-10.2); NEUT % 89.3 % (42.8-82.8); PLATELET COUNT 125 K/MM3 (134-434); RBC 3.09 M/mm3 (4.00-5.60); RDW 17.2 % (11.9-15.9); WHITE BLOOD COUNT 14.2 K/mm3 (4.0-10.0)
[2017-07-13 08:05] LABS: INR 3.58 (0.82-1.09); PROTHROMBIN TIME (PATIENT) 40.5 SEC (9.98-11.88)
[2017-07-13 08:34] LABS: ALBUMIN 2.7 g/dl (3.4-5.0); ANION GAP 8 (8-16); BLOOD UREA NITROGEN 78 mg/dL (7-18); CALCIUM 7.9 mg/dL (8.5-10.1); CHLORIDE 104 mmol/L (98-107); CO2 25 mmol/L (21-32); CREATININE 3.2 mg/dL (0.7-1.3); GLUCOSE,RANDOM 159 mg/dL (74-106); POTASSIUM 4.8 mmol/L (3.5-5.1); SGOT/AST 19 U/L (15-37); SODIUM 137 mmol/L (136-145)
[2017-07-13] MEDS: ALBUTEROL SO4 2.5/IPRATROPIUM 0.5 INH SOL 3 ML VIAL.NEB. NEB SCH ×4 (08:40→20:15)
[2017-07-13 08:45] LABS: ALK PHOS 71 U/L (45-117); BILIRUBIN,TOTAL 0.6 mg/dL (0.2-1.0); SGPT/ALT 19 U/L (12-78); TOT PROT 6.5 g/dl (6.4-8.2)
[2017-07-13] MEDS ORDERED: VANCOMYCIN 1,500 MG in DEXTROSE 5%-WATER - 500 ML IVPB SCH (10:00)
--- NOTE | 2017-07-13 10:08 | PN ---
Progress Note, Physician Chief Complaint: creatinine bumped History of Present Illness: BP running low - Current Medication List Current Medications: Active Medications Acetaminophen (Tylenol -) 650 mg PO Q8H PRN PRN Reason: FEVER Last Admin: 07/12/17 13:38 Dose: 650 mg Acetaminophen (Tylenol -) 650 mg PO [facility] Last Admin: 07/12/17 21:21 Dose: 650 mg Albuterol/Ipratropium (Duoneb -) 1 amp NEB RQID [facility] Last Admin: 07/13/17 08:40 Dose: 1 amp Aspirin (Asa -) 81 mg PO DAILY [facility] Last Admin: 07/12/17 12:09 Dose: 81 mg Atenolol (Tenormin -) 100 mg PO BID [facility] Last Admin: 07/12/17 21:28 Dose: Not Given Atorvastatin Calcium (Lipitor -) 80 mg PO [facility] Last Admin: 07/12/17 21:22 Dose: 80 mg Collagenase (Santyl -) 1 applic TP DAILY [facility] Last Admin: 07/12/17 12:09 Dose: Not Given Furosemide (Lasix -) 80 mg PO BID@0600,1800 [facility] Last Admin: 07/13/17 06:57 Dose: 80 mg Glipizide (Glucotrol Xl -) 10 mg PO BID [facility] Last Admin: 07/12/17 22:38 Dose: 10 mg Piperacillin Sod/Tazobactam (Sod 3.375 gm/ Dextrose) 50 mls @ 100 mls/hr IVPB Q8H-IV [facility] PRN Reason: Protocol Last Admin: 07/13/17 01:49 Dose: 100 mls/hr Insulin Detemir (Levemir Vial) 40 units SQ DAILY@0700 [facility] Last Admin: 07/13/17 06:42 Dose: 40 units Levothyroxine Sodium (Synthroid -) 100 mcg PO DAILY@0700 [facility] Last Admin: 07/13/17 06:43 Dose: 100 mcg Liraglutide (Victoza -) 1.8 mg SQ DAILY@0700 [facility] Last Admin: 07/13/17 06:44 Dose: Not Given Lisinopril (Prinivil) 10 mg PO DAILY [facility] Last Admin: 07/12/17 12:08 Dose: Not Given Oxycodone HCl (Roxicodone -) 10 mg PO [facility] Last Admin: 07/12/17 21:21 Dose: 10 mg Rivaroxaban (Xarelto -) 20 mg PO DAILY@1730 [facility] Last Admin: 07/12/17 23:17 Dose: 20 mg - Objective Vital Signs: Vital Signs Temperature 98.6 F 07/13/17 08:00 Pulse Rate 88 07/13/17 08:00 Respiratory Rate 18 07/13/17 08:00 Blood Pressure 99/56 07/13/17 08:00 O2 Sat by Pulse Oximetry (%) 95 07/12/17 22:00 Constitutional: Yes: No Distress, Calm Cardiovascular: Yes: Pulse Irregular Respiratory: Yes: CTA Bilaterally Gastrointestinal: Yes: Soft, Abdomen, Obese Edema: Yes Edema: LLE: 2+ (open ulcers), RLE: 2+ (open ulcers) Neurological: Yes: Alert Labs: CBC, BMP 07/13/17 06:35 07/13/17 06:35 INR, PTT INR 3.58 (0.82-1.09) H D 07/13/17 06:35 Microbiology 07/11/17 22:40 Blood - Peripheral Venous Blood Culture - Preliminary NO GROWTH OBTAINED AFTER 24 HOURS, INCUBATION TO CONTINUE FOR 4 DAYS. 07/11/17 22:00 Blood - Peripheral Venous Blood Culture - Preliminary NO GROWTH OBTAINED AFTER 24 HOURS, INCUBATION TO CONTINUE FOR 4 DAYS. Laboratory Tests 07/12/17 07/13/17 07/13/17 06:00 06:35 06:35 WBC 14.2 H D Hgb 9.7 L Plt Count 125 L INR 3.58 H D Sodium Potassium BUN 63 H Creatinine 2.4 H 07/13/17 06:35 WBC Hgb Plt Count INR Sodium 137 Potassium 4.8 BUN 78 H D Creatinine 3.2 H D Assessment/Plan IMP: Fall ARF, acute on chronic RLE cellulitis Morbid obesity PHTN Chronic AF, on Xarelto, currently rate controlled CAD s/p PCI REC: Rx of cellulitis as per PMD, f/u cultures Hold Lisinopril and Lasix for 24-48 hours, as creatinine is increased possibly due to periods of low BP. Venous duplex negative for DVT. Echo to assess LV fx and PHTN pending.
[2017-07-13] MEDS ORDERED: PT OWN MED DRAWER 7, Y5N ONE ×4 (10:36→21:56)
[2017-07-13] MEDS: ASPIRIN 81 MG CHEWABLE TABLETS PO SCH (10:43)
[2017-07-13] MEDS: glipiZIDE-XL 10 MG TAB.ER.24 (FP) PO SCH ×2 (10:43→22:02)
[2017-07-13] MEDS: COLLAGENASE CLOSTRIDIUM HIST. 30 GRAMS TUBE TP SCH (10:43)
[2017-07-13] MEDS: ATENOLOL 50 MG TABLET (FP) PO SCH ×2 (10:44→22:03)
[2017-07-13] MEDS: LISINOPRIL 10 MG TABLET (FP) PO SCH (10:44)
--- NOTE | 2017-07-13 12:07 | PN ---
Progress Note (short form) - Note Progress Note: PULMONARY Denies shortness of breath, cough or wheezing. Last Vital Signs Temp Pulse Resp BP Pulse Ox 98.6 F 88 18 99/56 93 L 07/13/17 08:00 07/13/17 08:00 07/13/17 08:00 07/13/17 08:00 07/13/17 09:50 Gen: NAD at rest Heart: RRR Lung: distant breath sounds Abd: soft, nontender Ext: chronic changes, + erythema CBC, BMP 07/13/17 06:35 07/13/17 06:35 Active Medications Acetaminophen (Tylenol -) 650 mg PO Q8H PRN PRN Reason: FEVER Last Admin: 07/12/17 13:38 Dose: 650 mg Acetaminophen (Tylenol -) 650 mg PO HS [facility] Last Admin: 07/12/17 21:21 Dose: 650 mg Albuterol/Ipratropium (Duoneb -) 1 amp NEB RQID [facility] Last Admin: 07/13/17 11:58 Dose: 1 amp Aspirin (Asa -) 81 mg PO DAILY [facility] Last Admin: 07/13/17 10:43 Dose: 81 mg Atenolol (Tenormin -) 100 mg PO BID [facility] Last Admin: 07/13/17 10:44 Dose: Not Given Atorvastatin Calcium (Lipitor -) 80 mg PO [facility] Last Admin: 07/12/17 21:22 Dose: 80 mg Collagenase (Santyl -) 1 applic TP DAILY [facility] Last Admin: 07/13/17 10:43 Dose: 1 applic Furosemide (Lasix -) 80 mg PO BID@0600,1800 [facility] Last Admin: 07/13/17 06:57 Dose: 80 mg Glipizide (Glucotrol Xl -) 10 mg PO BID [facility] Last Admin: 07/13/17 10:43 Dose: 10 mg Piperacillin Sod/Tazobactam (Sod 3.375 gm/ Dextrose) 50 mls @ 100 mls/hr IVPB Q8H-IV [facility] PRN Reason: Protocol Last Admin: 07/13/17 01:49 Dose: 100 mls/hr Insulin Detemir (Levemir Vial) 40 units SQ DAILY@0700 [facility] Last Admin: 07/13/17 06:42 Dose: 40 units Levothyroxine Sodium (Synthroid -) 100 mcg PO DAILY@0700 [facility] Last Admin: 07/13/17 06:43 Dose: 100 mcg Liraglutide (Victoza -) 1.8 mg SQ DAILY@0700 [facility] Last Admin: 07/13/17 06:44 Dose: Not Given Lisinopril (Prinivil) 10 mg PO DAILY [facility] Last Admin: 07/13/17 10:44 Dose: Not Given Oxycodone HCl (Roxicodone -) 10 mg PO HS [facility] Last Admin: 07/12/17 21:21 Dose: 10 mg Rivaroxaban (Xarelto -) 20 mg PO DAILY@1730 [facility] Last Admin: 07/12/17 23:17 Dose: 20 mg A/P Cellulitis Morbid Obesity ASHLEY Atrial Fibrillation CAD h/o DVT/PE CKD - continue antibiotics - BiPAP at night 09/10 - inhaled bronchodilators - O2 to keep SpO2 >90% - continue anticoagulation - when ready for discharge, will need to assess for home O2
--- NOTE | 2017-07-13 12:32 | PN ---
Progress Note, Physician Chief Complaint: Afebrile, NAD, WBC decreasing. History of Present Illness: Morbid obesity. ASHLEY. Bilateral PE. Pulmonary HTN-CTEPH AND CLASS 2 PAH. CHF-mostly diastolic. ASHD. STEMI in 2016 with MICHAEL x2 placed at [place]. Chronic A.Fib-on a/c-Xarelto/ASA now. Gout. 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 Chronic DVT Right thigh, Stasis ulcers, edema. Chronic wound right Ankle/dobbs-RX at [facility]-groing multiple organisms. - Current Medication List Current Medications: Active Medications Acetaminophen (Tylenol -) 650 mg PO Q8H PRN PRN Reason: FEVER Last Admin: 07/12/17 13:38 Dose: 650 mg Acetaminophen (Tylenol -) 650 mg PO HS [facility] Last Admin: 07/12/17 21:21 Dose: 650 mg Albuterol/Ipratropium (Duoneb -) 1 amp NEB RQID [facility] Last Admin: 07/13/17 11:58 Dose: 1 amp Aspirin (Asa -) 81 mg PO DAILY [facility] Last Admin: 07/13/17 10:43 Dose: 81 mg Atenolol (Tenormin -) 100 mg PO BID [facility] Last Admin: 07/13/17 10:44 Dose: Not Given Atorvastatin Calcium (Lipitor -) 80 mg PO HS [facility] Last Admin: 07/12/17 21:22 Dose: 80 mg Collagenase (Santyl -) 1 applic TP DAILY [facility] Last Admin: 07/13/17 10:43 Dose: 1 applic Furosemide (Lasix -) 80 mg PO BID@0600,1800 [facility] Last Admin: 07/13/17 06:57 Dose: 80 mg Glipizide (Glucotrol Xl -) 10 mg PO BID [facility] Last Admin: 07/13/17 10:43 Dose: 10 mg Piperacillin Sod/Tazobactam (Sod 3.375 gm/ Dextrose) 50 mls @ 100 mls/hr IVPB Q8H-IV [facility] PRN Reason: Protocol Last Admin: 07/13/17 01:49 Dose: 100 mls/hr Insulin Detemir (Levemir Vial) 40 units SQ DAILY@0700 [facility] Last Admin: 07/13/17 06:42 Dose: 40 units Levothyroxine Sodium (Synthroid -) 100 mcg PO DAILY@0700 [facility] Last Admin: 07/13/17 06:43 Dose: 100 mcg Liraglutide (Victoza -) 1.8 mg SQ DAILY@0700 [facility] Last Admin: 07/13/17 06:44 Dose: Not Given Lisinopril (Prinivil) 10 mg PO DAILY [facility] Last Admin: 07/13/17 10:44 Dose: Not Given Oxycodone HCl (Roxicodone -) 10 mg PO HS [facility] Last Admin: 07/12/17 21:21 Dose: 10 mg Rivaroxaban (Xarelto -) 20 mg PO DAILY@1730 [facility] Last Admin: 07/12/17 23:17 Dose: 20 mg - Objective Vital Signs: Vital Signs Temperature 98.6 F 07/13/17 08:00 Pulse Rate 88 07/13/17 08:00 Respiratory Rate 18 07/13/17 08:00 Blood Pressure 99/56 07/13/17 08:00 O2 Sat by Pulse Oximetry (%) 93 L 07/13/17 09:50 Constitutional: Yes: Anxious, Mild Distress, Obese Eyes: Yes: Conjunctiva Clear, EOM Intact HENT: Yes: Atraumatic, Normocephalic. No: Drooling, Epistaxis Neck: Yes: Supple, Trachea Midline Cardiovascular: Yes: Pulse Irregular, S1, S2 Respiratory: Yes: CTA Bilaterally. No: Accessory Muscle Use, Bradypnea Gastrointestinal: Yes: Normal Bowel Sounds, Soft, Abdomen, Obese ...Rectal Exam: Yes: Deferred Genitourinary: No: Anuria, Bladder Distention Breast(s): Yes: WNL Musculoskeletal: Yes: Back Pain. No: Joint Swelling Extremities: Yes: Erythema (ROMAN). No: Calf Tenderness, Cyanosis, Shortened Edema: LLE: 1+, RLE: 2+ Integumentary: Yes: Other (Nultiple stasis ulcers RLE) Neurological: Yes: Alert, Oriented. No: Aphasia, Asterixis, Ataxia, Lethargy, Loss of Sensation, Numbness, Seizure, Tingling, Tremors, Unresponsive, Unsteady Gait, Weakness Psychiatric: Yes: WNL Labs: CBC, BMP 07/13/17 06:35 07/13/17 06:35 INR, PTT INR 3.58 (0.82-1.09) H D 07/13/17 06:35 Laboratory Results - last 24 hr 07/12/17 07/13/17 07/13/17 21:42 05:30 06:35 WBC RBC Hgb Hct MCV MCH MCHC RDW Plt Count MPV Neutrophils % Lymphocytes % Monocytes % Eosinophils % Basophils % PT with INR 40.50 H INR 3.58 H D Sodium Potassium Chloride Carbon Dioxide Anion Gap BUN Creatinine Creat Clearance w eGFR POC Glucometer 254 187 Random Glucose Calcium Total Bilirubin AST ALT Alkaline Phosphatase Total Protein Albumin Vancomycin Pre-Dose 07/13/17 07/13/17 07/13/17 06:35 06:35 09:28 WBC 14.2 H D RBC 3.09 L Hgb 9.7 L Hct 30.1 L MCV 97.4 H MCH 31.4 MCHC 32.2 RDW 17.2 H Plt Count 125 L MPV 8.7 Neutrophils % 89.3 H Lymphocytes % 4.2 L D Monocytes % 5.6 D Eosinophils % 0.6 D Basophils % 0.3 PT with INR INR Sodium 137 Potassium 4.8 Chloride 104 Carbon Dioxide 25 Anion Gap 8 BUN 78 H D Creatinine 3.2 H D Creat Clearance w eGFR 19.78 POC Glucometer Random Glucose 159 H D Calcium 7.9 L Total Bilirubin 0.6 D AST 19 ALT 19 Alkaline Phosphatase 71 D Total Protein 6.5 Albumin 2.7 L Vancomycin Pre-Dose 3.766 L* 07/13/17 11:55 WBC RBC Hgb Hct MCV MCH MCHC RDW Plt Count MPV Neutrophils % Lymphocytes % Monocytes % Eosinophils % Basophils % PT with INR INR Sodium Potassium Chloride Carbon Dioxide Anion Gap BUN Creatinine Creat Clearance w eGFR POC Glucometer 231 Random Glucose Calcium Total Bilirubin AST ALT Alkaline Phosphatase Total Protein Albumin Vancomycin Pre-Dose Problem List - Problems (1) Atrial fibrillation Assessment/Plan: a/c, RATE CONTROL Code(s): I48.91 - UNSPECIFIED ATRIAL FIBRILLATION Qualifiers: Atrial fibrillation type: chronic Qualified Code(s): I48.2 - Chronic atrial fibrillation (2) CHF (congestive heart failure) Assessment/Plan: Continue BAB, Lasix, UVALDO Code(s): I50.9 - HEART FAILURE, UNSPECIFIED (3) Cellulitis of right leg Assessment/Plan: IV ABX, ID F/U Code(s): L03.115 - CELLULITIS OF RIGHT LOWER LIMB (4) Diabetes Code(s): E11.9 - TYPE 2 DIABETES MELLITUS WITHOUT COMPLICATIONS Qualifiers: Diabetes mellitus type: type 2 Diabetes mellitus complication status: with circulatory complication
--- NOTE | 2017-07-13 14:21 | CON.ID ---
Consult Consult Specialty:: infectious diseases Reason for Consultation:: fall,wound infection - History of Present Illness Chief Complaint: weakness ,fatigue History of Present Illness: 61 y/o man PMH of: Diastolic CHF, CAD, [place] s/p MICHAEL x2, Afib (on Xarelto), CKD Stage 3, DM, DVT, Chronic RLE Ulcers, Gout, ASHLEY, Severe Obesity. Who presents to the ED with chills, weakness s/p fall . Patient reports falling on his driveway onto his stomach. Patient reports that his legs gave out on him. Patient denies LOC or Head Trauma. Patient reports having chronic right leg ulcers- treatment at wound care. Patient denies fever, cough, REY, SOB, CP, N/V/D , dysuria i have known this patient well and have treatred him for wound infection patient was being followed in the wound care center and his wounds had healed well. 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 No: Ascites, Cancer Hepatobiliary: Yes: Cholelithiasis Renal/: Yes: Renal Inusuff Infectious Disease: Yes: Other (RLE cellulitis.) Psych: Yes: Depression. No: Addictions, Anxiety, Bipolar, Panic, Psychosis, Schizophrenia, Other Musculoskeletal: Yes: Chronic low back pain Rheumatology: Yes: Gout Endocrine: Yes: Diabetes Mellitus, Hypothyroidism - Past Surgical History Past Surgical History: Yes: Stent - Alcohol/Substance Use Hx Alcohol Use: No History of Substance Use: reports: None - Smoking History Smoking history: Former smoker Have you smoked in the past 12 months: No Aproximately how many cigarettes per day: 0 If you are a former smoker, when did you quit?: 1992 - Social History ADL: Independent History of Recent Travel: No Home Medications - Allergies Allergies/Adverse Reactions: Allergies Allergy/AdvReac Type Severity Reaction Status Date / Time Sulfa (Sulfonamide Allergy Intermediate Rash Verified 07/11/17 23:06 Antibiotics) - Home Medications Home Medications: Ambulatory Orders Oxycodone HCl/Acetaminophen [Percocet 5-325 mg Tablet] 2 combo PO HS PRN Furosemide [Lasix -] 80 mg PO BID@0600,1800 #0 tablet 12/14/11 Glipizide [Glipizide Xl] 10 mg PO BID 02/27/13 Insulin Glargine,Hum.rec.anlog [Lantus Solostar PEN -] 80 unit SQ DAILY Levothyroxine [Synthroid -] 100 mcg PO DAILY 01/26/14 Rivaroxaban [Xarelto -] 20 mg PO DAILY 10/30/14 Atorvastatin Ca [Lipitor] 80 mg PO HS 09/05/15 Lisinopril 10 mg PO DAILY 09/05/15 Atenolol 100 mg PO BID 07/24/16 Mupirocin Cream [Bactroban 2% Cream -] 1 applic TP DAILY #1 tube 11/20/16 Collagenase Clostridium Hist. [Santyl] 1 applic TP DAILY #90 oint...g. 06/14/17 Liraglutide [Victoza -] 1.8 mg SQ DAILY@0700 07/11/17 Review of Systems - Review of Systems Constitutional: reports: Lethargy, Weakness Eyes: reports: No Symptoms HENT: reports: No Symptoms Neck: reports: No Symptoms Cardiovascular: reports: No Symptoms Respiratory: reports: No Symptoms Gastrointestinal: reports: No Symptoms Musculoskeletal: reports: Muscle Pain, Other Integumentary: reports: Change in Color, Erythema, Wound Neurological: reports: Weakness Endocrine: reports: No Symptoms Hematology/Lymphatic: reports: No Symptoms Psychiatric: reports: No Symptoms Physical Exam Vital Signs: Vital Signs Temperature 98.6 F 07/13/17 08:00 Pulse Rate 88 07/13/17 08:00 Respiratory Rate 18 07/13/17 08:00 Blood Pressure 99/56 07/13/17 08:00 O2 Sat by Pulse Oximetry (%) 93 L 07/13/17 09:50 Constitutional: Yes: Mild Distress, Obese (morbidly) Eyes: Yes: Conjunctiva Clear Neck: Yes: Supple Cardiovascular: Yes: S1, S2 Respiratory: Yes: Regular, Poor Air Entry (bases) Gastrointestinal: Yes: Normal Bowel Sounds, Soft Musculoskeletal: Yes: Other Extremities: Yes: Erythema, Other Edema: LLE: 2+, RLE: 2+ Integumentary: Yes: Erythema, Onychomycosis Wound/Incision: Yes: Open to air, Other (wound on bilat ext) Neurological: Yes: Alert, Oriented Psychiatric: Yes: Alert, Oriented Labs: CBC, BMP 07/13/17 06:35 07/13/17 06:35 Imaging - Results Chest X-ray: Report Reviewed, Image Reviewed Assessment/Plan Problem List - Problems (1) Accident due to mechanical fall without injury Code(s): W19.XXXA - UNSPECIFIED FALL, INITIAL ENCOUNTER (2) Atrial fibrillation Code(s): I48.91 - UNSPECIFIED ATRIAL FIBRILLATION Qualifiers: Atrial fibrillation type: chronic Qualified Code(s): I48.2 - Chronic atrial fibrillation (3) CAD (coronary artery disease) Code(s): I25.10 - ATHSCL HEART DISEASE OF [place] CORONARY ARTERY W/O ANG PCTRS (4) CHF (congestive heart failure) Code(s): I50.9 - HEART FAILURE, UNSPECIFIED (5) DVT (deep venous thrombosis) Code(s): I82.409 - ACUTE EMBOLISM AND THOMBOS UNSP DEEP VN UNSP LOWER EXTREMITY Qualifiers: DVT location: lower extremity Affected thrombotic vein of extremity: femoral Chronicity: chronic Laterality: right Qualified Code(s): I82.511 - Chronic embolism and thrombosis of right femoral vein (6) Obesities, morbid Code(s): E66.01 - MORBID (SEVERE) OBESITY DUE TO EXCESS CALORIES (7) Pulmonary embolism Code(s): I26.99 - OTHER PULMONARY EMBOLISM WITHOUT ACUTE COR PULMONALE (8) Venous (peripheral) insufficiency Code(s): I87.2 - VENOUS INSUFFICIENCY (CHRONIC) (PERIPHERAL) (9) Sleep apnea Code(s): G47.30 - SLEEP APNEA, UNSPECIFIED (10) COPD (chronic obstructive pulmonary disease) Code(s): J44.9 - CHRONIC OBSTRUCTIVE PULMONARY DISEASE, UNSPECIFIED (11) Pulmonary HTN Code(s): I27.20 - PULMONARY HYPERTENSION, UNSPECIFIED (12) Dyspnea Code(s): R06.00 - DYSPNEA, UNSPECIFIED (13) Cellulitis Code(s): L03.90 - CELLULITIS, UNSPECIFIED 14) wound infection patient known to me and looking at his wound they are infected plan will start patient on abx await for cx of the wound elevation of the legs wound care rest as per the team
[2017-07-13] MEDS ORDERED: PIPERACILLIN/TAZOB 3.375 GM 2.25 GM in DEXTROSE 5%-WATER - 50 ML IVPB SCH (14:31)
--- NOTE | 2017-07-13 14:32 | PN ---
Progress Note, Physician History of Present Illness: stable dong well no issues still tired - Current Medication List Current Medications: Active Medications Acetaminophen (Tylenol -) 650 mg PO Q8H PRN PRN Reason: FEVER Last Admin: 07/12/17 13:38 Dose: 650 mg Acetaminophen (Tylenol -) 650 mg PO [facility] Last Admin: 07/12/17 21:21 Dose: 650 mg Albuterol/Ipratropium (Duoneb -) 1 amp NEB RQID [facility] Last Admin: 07/13/17 11:58 Dose: 1 amp Aspirin (Asa -) 81 mg PO DAILY [facility] Last Admin: 07/13/17 10:43 Dose: 81 mg Atenolol (Tenormin -) 100 mg PO BID [facility] Last Admin: 07/13/17 10:44 Dose: Not Given Atorvastatin Calcium (Lipitor -) 80 mg PO [facility] Last Admin: 07/12/17 21:22 Dose: 80 mg Collagenase (Santyl -) 1 applic TP DAILY [facility] Last Admin: 07/13/17 10:43 Dose: 1 applic Furosemide (Lasix -) 80 mg PO BID@0600,1800 [facility] Last Admin: 07/13/17 06:57 Dose: 80 mg Glipizide (Glucotrol Xl -) 10 mg PO BID [facility] Last Admin: 07/13/17 10:43 Dose: 10 mg Piperacillin Sod/Tazobactam (Sod 3.375 gm/ Dextrose) 50 mls @ 100 mls/hr IVPB Q8H-IV [facility] PRN Reason: Protocol Last Admin: 07/13/17 01:49 Dose: 100 mls/hr Insulin Detemir (Levemir Vial) 40 units SQ DAILY@0700 [facility] Last Admin: 07/13/17 06:42 Dose: 40 units Levothyroxine Sodium (Synthroid -) 100 mcg PO DAILY@0700 [facility] Last Admin: 07/13/17 06:43 Dose: 100 mcg Liraglutide (Victoza -) 1.8 mg SQ DAILY@0700 [facility] Last Admin: 07/13/17 06:44 Dose: Not Given Lisinopril (Prinivil) 10 mg PO DAILY [facility] Last Admin: 07/13/17 10:44 Dose: Not Given Oxycodone HCl (Roxicodone -) 10 mg PO [facility] Last Admin: 04/16/18 21:21 Dose: 10 mg Rivaroxaban (Xarelto -) 20 mg PO DAILY@1730 [facility] Last Admin: 07/12/17 23:17 Dose: 20 mg - Objective Vital Signs: Vital Signs Temperature 98.6 F 07/13/17 08:00 Pulse Rate 88 07/13/17 08:00 Respiratory Rate 18 07/13/17 08:00 Blood Pressure 99/56 07/13/17 08:00 O2 Sat by Pulse Oximetry (%) 93 L 07/13/17 09:50 Constitutional: Yes: No Distress, Calm Cardiovascular: Yes: S1, S2 Respiratory: Yes: Regular, Poor Air Entry Gastrointestinal: Yes: Normal Bowel Sounds, Soft Musculoskeletal: Yes: Other Extremities: Yes: Other Wound/Incision: Yes: Open to air Neurological: Yes: Alert, Oriented Psychiatric: Yes: Alert, Oriented Labs: CBC, BMP 07/13/17 06:35 07/13/17 06:35 INR, PTT INR 3.58 (0.82-1.09) H D 07/13/17 06:35 Assessment/Plan Problem List - Problems (1) Accident due to mechanical fall without injury Code(s): W19.XXXA - UNSPECIFIED FALL, INITIAL ENCOUNTER (2) Atrial fibrillation Code(s): I48.91 - UNSPECIFIED ATRIAL FIBRILLATION Qualifiers: Atrial fibrillation type: chronic Qualified Code(s): I48.2 - Chronic atrial fibrillation (3) CAD (coronary artery disease) Code(s): I25.10 - ATHSCL HEART DISEASE OF [place] CORONARY ARTERY W/O ANG PCTRS (4) CHF (congestive heart failure) Code(s): I50.9 - HEART FAILURE, UNSPECIFIED (5) DVT (deep venous thrombosis) Code(s): I82.409 - ACUTE EMBOLISM AND THOMBOS UNSP DEEP VN UNSP LOWER EXTREMITY Qualifiers: DVT location: lower extremity Affected thrombotic vein of extremity: femoral Chronicity: chronic Laterality: right Qualified Code(s): I82.511 - Chronic embolism and thrombosis of right femoral vein (6) Obesities, morbid Code(s): E66.01 - MORBID (SEVERE) OBESITY DUE TO EXCESS CALORIES (7) Pulmonary embolism Code(s): I26.99 - OTHER PULMONARY EMBOLISM WITHOUT ACUTE COR PULMONALE (8) Venous (peripheral) insufficiency Code(s): I87.2 - VENOUS INSUFFICIENCY (CHRONIC) (PERIPHERAL) (9) Sleep apnea Code(s): G47.30 - SLEEP APNEA, UNSPECIFIED (10) COPD (chronic obstructive pulmonary disease) Code(s): J44.9 - CHRONIC OBSTRUCTIVE PULMONARY DISEASE, UNSPECIFIED (11) Pulmonary HTN Code(s): I27.20 - PULMONARY HYPERTENSION, UNSPECIFIED (12) Dyspnea Code(s): R06.00 - DYSPNEA, UNSPECIFIED (13) Cellulitis Code(s): L03.90 - CELLULITIS, UNSPECIFIED 14) wound infection 15 leukocytosis cx results noted awaiting for identification one more bacteria wbc trending down plan continue abx monitor wbc monitor labs wound care await for sensitivities
[2017-07-13] MEDS ORDERED: PIPERACILLIN/TAZOB 3.375 GM 3.375 GM in DEXTROSE 5%-WATER - 50 ML IVPB SCH (14:37)
[2017-07-13] MEDS: ACETAMINOPHEN 325 MG TABLET (FP) PO PRN (14:45)
[2017-07-13] MEDS ORDERED: PIPERACILLIN/TAZOBACTAM 2.25 GM VIAL IVPB ONE (17:32)
[2017-07-13] MEDS: RIVAROXABAN 20 MG TABLET PO SCH (18:10)
[2017-07-13] MEDS: PIPERACILLIN/TAZOB 2.25 GM 2.25 GM in DEXTROSE 5%-WATER - 50 ML IVPB SCH (18:10)
[2017-07-13] MEDS: ACETAMINOPHEN 325 MG TABLET (FP) PO SCH (22:00)
[2017-07-13] MEDS: oxyCODONE HCL 5 MG TABLET PO SCH (22:01)
[2017-07-13] MEDS: ATORVASTATIN CA 80 MG TABLET (FP) PO SCH (22:02)
[2017-07-14] MEDS ORDERED: PIPERACILLIN/TAZOBACTAM 2.25 GM VIAL IVPB ONE ×3 (01:50→17:05)
[2017-07-14] MEDS ORDERED: DEXTROSE 5%-WATER - 50 ML IVPB ONE ×3 (01:51→17:05)
[2017-07-14] MEDS: PIPERACILLIN/TAZOB 2.25 GM 2.25 GM in DEXTROSE 5%-WATER - 50 ML IVPB SCH ×3 (01:56→17:24)
[2017-07-14] MEDS ORDERED: PT OWN MED DRAWER 7, Y5N ONE ×2 (06:40→20:50)
[2017-07-14] MEDS: LEVOTHYROXINE NA 100 MCG TABLET (FP) PO SCH (06:45)
[2017-07-14] MEDS: LIRAGLUTIDE 0.6 MG/0.1 ML PEN.INJCTR SQ SCH (06:45)
[2017-07-14] MEDS: INSULIN (LEVEMIR) 100 UNITS/ML UNITS SQ SCH (06:45)
[2017-07-14] MEDS: ALBUTEROL SO4 2.5/IPRATROPIUM 0.5 INH SOL 3 ML VIAL.NEB. NEB SCH ×4 (08:30→21:01)
--- NOTE | 2017-07-14 08:37 | PN ---
Progress Note, Physician Chief Complaint: Afebrile, NAD, WBC decreasing. History of Present Illness: Morbid obesity. ASHLEY. Bilateral PE. Pulmonary HTN-CTEPH AND CLASS 2 PAH. CHF-mostly diastolic. ASHD. STEMI in 2016 with MICHAEL x2 placed at [facility]. Chronic A.Fib-on a/c-Xarelto/ASA now. Gout. 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 Chronic DVT Right thigh, Stasis ulcers, edema. Chronic wound right Ankle/dobbs-RX at [facility]-groing multiple organisms. - Current Medication List Current Medications: Active Medications Acetaminophen (Tylenol -) 650 mg PO Q8H PRN PRN Reason: FEVER Last Admin: 07/13/17 14:45 Dose: 650 mg Acetaminophen (Tylenol -) 650 mg PO HS [facility] Last Admin: 07/13/17 22:00 Dose: 650 mg Albuterol/Ipratropium (Duoneb -) 1 amp NEB RQID [facility] Last Admin: 07/13/17 20:15 Dose: 1 amp Aspirin (Asa -) 81 mg PO DAILY [facility] Last Admin: 07/13/17 10:43 Dose: 81 mg Atenolol (Tenormin -) 100 mg PO BID [facility] Last Admin: 07/13/17 22:03 Dose: Not Given Atorvastatin Calcium (Lipitor -) 80 mg PO HS [facility] Last Admin: 07/13/17 22:02 Dose: 80 mg Collagenase (Santyl -) 1 applic TP DAILY [facility] Last Admin: 07/13/17 10:43 Dose: 1 applic Furosemide (Lasix -) 80 mg PO BID@0600,1800 [facility] Last Admin: 07/13/17 06:57 Dose: 80 mg Glipizide (Glucotrol Xl -) 10 mg PO BID [facility] Last Admin: 07/13/17 22:02 Dose: 10 mg Piperacillin Sod/Tazobactam (Sod 2.25 gm/ Dextrose) 50 mls @ 100 mls/hr IVPB Q8H-IV [facility] PRN Reason: Protocol Last Admin: 07/14/17 01:56 Dose: 100 mls/hr Insulin Detemir (Levemir Vial) 40 units SQ DAILY@0700 [facility] Last Admin: 07/14/17 06:45 Dose: 40 units Levothyroxine Sodium (Synthroid -) 100 mcg PO DAILY@0700 [facility] Last Admin: 07/14/17 06:45 Dose: 100 mcg Liraglutide (Victoza -) 1.8 mg SQ DAILY@0700 [facility] Last Admin: 07/14/17 06:45 Dose: 1.8 mg Lisinopril (Prinivil) 10 mg PO DAILY [facility] Last Admin: 07/13/17 10:44 Dose: Not Given Oxycodone HCl (Roxicodone -) 10 mg PO HS [facility] Last Admin: 07/13/17 22:01 Dose: 10 mg Rivaroxaban (Xarelto -) 20 mg PO DAILY@1730 [facility] Last Admin: 07/13/17 18:10 Dose: 20 mg - Objective Vital Signs: Vital Signs Temperature 98.4 F 07/14/17 05:52 Pulse Rate 82 07/14/17 05:52 Respiratory Rate 20 07/14/17 05:52 Blood Pressure 100/58 07/14/17 05:52 O2 Sat by Pulse Oximetry (%) 99 07/14/17 02:42 Constitutional: Yes: No Distress, Moderate Distress Eyes: Yes: Conjunctiva Clear, EOM Intact HENT: Yes: Atraumatic, Normocephalic. No: Drooling Neck: Yes: Supple, Trachea Midline Cardiovascular: Yes: Pulse Irregular. No: Tachycardia Respiratory: Yes: Regular, CTA Bilaterally Gastrointestinal: Yes: Normal Bowel Sounds, Soft, Abdomen, Obese. No: Palpable Mass, Tenderness ...Rectal Exam: Yes: Deferred Genitourinary: No: Anuria Extremities: Yes: Other. No: Cold, Shortened Edema: LLE: 3+, RLE: 3+ Peripheral Pulses WNL: No Integumentary: Yes: Pressure Ulcer, Venous Stasis Changes Neurological: Yes: Alert, Oriented. No: Aphasia ...Motor Strength: WNL Psychiatric: Yes: WNL Labs: CBC, BMP 07/13/17 06:35 07/13/17 06:35 INR, PTT INR 3.58 (0.82-1.09) H D 07/13/17 06:35 Problem List - Problems (1) Atrial fibrillation Assessment/Plan: a/c, RATE CONTROL Code(s): I48.91 - UNSPECIFIED ATRIAL FIBRILLATION Qualifiers: Atrial fibrillation type: chronic Qualified Code(s): I48.2 - Chronic atrial fibrillation (2) CHF (congestive heart failure) Assessment/Plan: Continue BAB, Lasix, UVALDO Code(s): I50.9 - HEART FAILURE, UNSPECIFIED (3) Cellulitis of right leg Assessment/Plan: IV ABX, ID F/U Code(s): L03.115 - CELLULITIS OF RIGHT LOWER LIMB (4) Diabetes Code(s): E11.9 - TYPE 2 DIABETES MELLITUS WITHOUT COMPLICATIONS Qualifiers: Diabetes mellitus type: type 2 Diabetes mellitus complication status: with circulatory complication
--- NOTE | 2017-07-14 08:49 | PN ---
Progress Note, Physician Chief Complaint: BP remains low He denies SOB, CP UVALDO-I and Lasix on hold due to creat bump, awaiting today's creat History of Present Illness: Echo remarkable for moderate PHTN - Current Medication List Current Medications: Active Medications Acetaminophen (Tylenol -) 650 mg PO Q8H PRN PRN Reason: FEVER Last Admin: 07/13/17 14:45 Dose: 650 mg Acetaminophen (Tylenol -) 650 mg PO HS [facility] Last Admin: 07/13/17 22:00 Dose: 650 mg Albuterol/Ipratropium (Duoneb -) 1 amp NEB RQID [facility] Last Admin: 07/14/17 08:30 Dose: 1 amp Aspirin (Asa -) 81 mg PO DAILY [facility] Last Admin: 07/13/17 10:43 Dose: 81 mg Atenolol (Tenormin -) 100 mg PO BID [facility] Last Admin: 07/13/17 22:03 Dose: Not Given Atorvastatin Calcium (Lipitor -) 80 mg PO HS [facility] Last Admin: 07/13/17 22:02 Dose: 80 mg Collagenase (Santyl -) 1 applic TP DAILY [facility] Last Admin: 07/13/17 10:43 Dose: 1 applic Furosemide (Lasix -) 80 mg PO BID@0600,1800 [facility] Last Admin: 07/13/17 06:57 Dose: 80 mg Glipizide (Glucotrol Xl -) 10 mg PO BID [facility] Last Admin: 07/13/17 22:02 Dose: 10 mg Piperacillin Sod/Tazobactam (Sod 2.25 gm/ Dextrose) 50 mls @ 100 mls/hr IVPB Q8H-IV [facility] PRN Reason: Protocol Last Admin: 07/14/17 01:56 Dose: 100 mls/hr Insulin Detemir (Levemir Vial) 40 units SQ DAILY@0700 [facility] Last Admin: 07/14/17 06:45 Dose: 40 units Levothyroxine Sodium (Synthroid -) 100 mcg PO DAILY@0700 [facility] Last Admin: 07/14/17 06:45 Dose: 100 mcg Liraglutide (Victoza -) 1.8 mg SQ DAILY@0700 [facility] Last Admin: 07/14/17 06:45 Dose: 1.8 mg Lisinopril (Prinivil) 10 mg PO DAILY [facility] Last Admin: 07/13/17 10:44 Dose: Not Given Oxycodone HCl (Roxicodone -) 10 mg PO HS [facility] Last Admin: 07/13/17 22:01 Dose: 10 mg Rivaroxaban (Xarelto -) 20 mg PO DAILY@1730 [facility] Last Admin: 07/13/17 18:10 Dose: 20 mg - Objective Vital Signs: Vital Signs Temperature 98.4 F 07/14/17 05:52 Pulse Rate 82 07/14/17 05:52 Respiratory Rate 20 07/14/17 05:52 Blood Pressure 100/58 07/14/17 05:52 O2 Sat by Pulse Oximetry (%) 99 07/14/17 02:42 Constitutional: Yes: Calm Cardiovascular: Yes: Regular Rate and Rhythm Gastrointestinal: Yes: Soft, Abdomen, Obese Edema: Yes Edema: LLE: 2+, RLE: 2+ Neurological: Yes: Alert, Oriented Labs: CBC, BMP 07/13/17 06:35 07/13/17 06:35 INR, PTT INR 3.58 (0.82-1.09) H D 07/13/17 06:35 Assessment/Plan IMP: Fall ARF, acute on chronic RLE cellulitis Morbid obesity PHTN Chronic AF, on Xarelto, currently rate controlled CAD s/p PCI REC: Rx of cellulitis as per PMD, f/u cultures Hold Lisinopril and Lasix for 24-48 hours, as creatinine is increased possibly due to periods of low BP. Venous duplex negative for DVT. Echo with normal LV function and moderate PHTN likely due to COPD and obesity
[2017-07-14 09:10] LABS: BASO % 0.3 % (0-2.0); EOS % 1.6 % (0-4.5); HEMATOCRIT 29.1 % (35.4-49); HEMOGLOBIN 9.3 GM/dL (11.7-16.9); LYMPH % 6.1 % (8-40); MCH 31.2 pg (25.7-33.7); MCHC 32.1 g/dl (32.0-35.9); MEAN CELL VOLUME 97.2 fl (80-96); MEAN PLT VOLUME 8.8 fl (7.5-11.1); MONO % 6.5 % (3.8-10.2); NEUT % 85.5 % (42.8-82.8); PLATELET COUNT 132 K/MM3 (134-434); RDW 17.3 % (11.9-15.9); WHITE BLOOD COUNT 12.9 K/mm3 (4.0-10.0)
[2017-07-14 09:14] LABS: INR 2.34 (0.82-1.09); PROTHROMBIN TIME (PATIENT) 26.4 SEC (9.98-11.88)
[2017-07-14 09:30] LABS: CHLORIDE 104 mmol/L (98-107); POTASSIUM 4.6 mmol/L (3.5-5.1); SODIUM 137 mmol/L (136-145)
[2017-07-14] MEDS: ASPIRIN 81 MG CHEWABLE TABLETS PO SCH (09:42)
[2017-07-14] MEDS: ATENOLOL 50 MG TABLET (FP) PO SCH ×2 (09:43→21:27)
[2017-07-14] MEDS: glipiZIDE-XL 10 MG TAB.ER.24 (FP) PO SCH ×2 (09:43→21:28)
[2017-07-14 09:45] LABS: ALBUMIN 2.7 g/dl (3.4-5.0); ALK PHOS 75 U/L (45-117); ANION GAP 10 (8-16); BILIRUBIN,TOTAL 0.4 mg/dL (0.2-1.0); BLOOD UREA NITROGEN 83 mg/dL (7-18); CALCIUM 7.6 mg/dL (8.5-10.1); CO2 23 mmol/L (21-32); CREATININE 3.8 mg/dL (0.7-1.3); GLUCOSE,RANDOM 202 mg/dL (74-106); SGOT/AST 16 U/L (15-37); SGPT/ALT 19 U/L (12-78); TOT PROT 6.8 g/dl (6.4-8.2)
[2017-07-14] MEDS: ACETAMINOPHEN 325 MG TABLET (FP) PO PRN (09:51)
[2017-07-14] MEDS: COLLAGENASE CLOSTRIDIUM HIST. 30 GRAMS TUBE TP SCH (09:52)
[2017-07-14] MEDS ORDERED: INSULIN (NOVOLOG) ASPART 100 UNITS/ML 10ML VIAL ONE (11:30)
[2017-07-14] MEDS: INSULIN SLIDING SCALE (NOVOLOG) 1 VIAL SQ SCH ×3 (11:35→21:31)
--- NOTE | 2017-07-14 14:40 | PN ---
Progress Note, Physician History of Present Illness: pulmonary alert,feeling better,less dyspneic,laying in bed on cpap - Current Medication List Current Medications: Active Medications Acetaminophen (Tylenol -) 650 mg PO Q8H PRN PRN Reason: FEVER Last Admin: 07/14/17 09:51 Dose: 650 mg Acetaminophen (Tylenol -) 650 mg PO HS [facility] Last Admin: 07/13/17 22:00 Dose: 650 mg Albuterol/Ipratropium (Duoneb -) 1 amp NEB RQID [facility] Last Admin: 07/14/17 08:30 Dose: 1 amp Aspirin (Asa -) 81 mg PO DAILY [facility] Last Admin: 07/14/17 09:42 Dose: 81 mg Atenolol (Tenormin -) 100 mg PO BID [facility] Last Admin: 07/14/17 09:43 Dose: Not Given Atorvastatin Calcium (Lipitor -) 80 mg PO HS [facility] Last Admin: 07/13/17 22:02 Dose: 80 mg Collagenase (Santyl -) 1 applic TP DAILY [facility] Last Admin: 07/14/17 09:52 Dose: 1 applic Furosemide (Lasix -) 80 mg PO BID@0600,1800 [facility] Last Admin: 07/13/17 06:57 Dose: 80 mg Glipizide (Glucotrol Xl -) 10 mg PO BID [facility] Last Admin: 07/14/17 09:43 Dose: 10 mg Piperacillin Sod/Tazobactam (Sod 2.25 gm/ Dextrose) 50 mls @ 100 mls/hr IVPB Q8H-IV [facility] PRN Reason: Protocol Last Admin: 07/14/17 09:44 Dose: 100 mls/hr Insulin Aspart (Novolog Vial Sliding Scale -) 1 vial SQ ACHS [facility] PRN Reason: Protocol Last Admin: 07/14/17 11:35 Dose: 6 units Insulin Detemir (Levemir Vial) 40 units SQ DAILY@0700 [facility] Last Admin: 07/14/17 06:45 Dose: 40 units Levothyroxine Sodium (Synthroid -) 100 mcg PO DAILY@0700 [facility] Last Admin: 07/14/17 06:45 Dose: 100 mcg Liraglutide (Victoza -) 1.8 mg SQ DAILY@0700 [facility] Last Admin: 07/14/17 06:45 Dose: 1.8 mg Lisinopril (Prinivil) 10 mg PO DAILY [facility] Last Admin: 07/13/17 10:44 Dose: Not Given Oxycodone HCl (Roxicodone -) 10 mg PO HS [facility] Last Admin: 07/13/17 22:01 Dose: 10 mg Rivaroxaban (Xarelto -) 20 mg PO DAILY@1730 [facility] Last Admin: 07/13/17 18:10 Dose: 20 mg - Objective Vital Signs: Vital Signs Temperature 97.7 F 07/14/17 14:12 Pulse Rate 78 07/14/17 14:12 Respiratory Rate 18 07/14/17 08:50 Blood Pressure 85/52 07/14/17 14:12 O2 Sat by Pulse Oximetry (%) 94 L 07/14/17 09:00 Constitutional: Yes: Calm, Obese (morbidly obese) Eyes: Yes: WNL HENT: Yes: WNL Neck: Yes: WNL Cardiovascular: Yes: Pulse Irregular, S1, S2 Respiratory: Yes: Diminished Gastrointestinal: Yes: Normal Bowel Sounds, Soft Extremities: Yes: WNL, Erythema Edema: Yes Labs: CBC, BMP 07/14/17 07:50 07/14/17 07:50 INR, PTT INR 2.34 (0.82-1.09) H D 07/14/17 07:50 Problem List - Problems (1) Accident due to mechanical fall without injury Code(s): W19.XXXA - UNSPECIFIED FALL, INITIAL ENCOUNTER (2) Atrial fibrillation Code(s): I48.91 - UNSPECIFIED ATRIAL FIBRILLATION Qualifiers: Atrial fibrillation type: chronic Qualified Code(s): I48.2 - Chronic atrial fibrillation (3) CAD (coronary artery disease) Code(s): I25.10 - ATHSCL HEART DISEASE OF [place] CORONARY ARTERY W/O ANG PCTRS (4) CHF (congestive heart failure) Code(s): I50.9 - HEART FAILURE, UNSPECIFIED (5) DVT (deep venous thrombosis) Code(s): I82.409 - ACUTE EMBOLISM AND THOMBOS UNSP DEEP VN UNSP LOWER EXTREMITY Qualifiers: DVT location: lower extremity Affected thrombotic vein of extremity: femoral Chronicity: chronic Laterality: right Qualified Code(s): I82.511 - Chronic embolism and thrombosis of right femoral vein (6) Obesities, morbid Code(s): E66.01 - MORBID (SEVERE) OBESITY DUE TO EXCESS CALORIES (7) Pulmonary embolism Code(s): I26.99 - OTHER PULMONARY EMBOLISM WITHOUT ACUTE COR PULMONALE (8) Venous (peripheral) insufficiency Code(s): I87.2 - VENOUS INSUFFICIENCY (CHRONIC) (PERIPHERAL) (9) Sleep apnea Code(s): G47.30 - SLEEP APNEA, UNSPECIFIED (10) COPD (chronic obstructive pulmonary disease) Code(s): J44.9 - CHRONIC OBSTRUCTIVE PULMONARY DISEASE, UNSPECIFIED (11) Pulmonary HTN Code(s): I27.20 - PULMONARY HYPERTENSION, UNSPECIFIED (12) Dyspnea Code(s): R06.00 - DYSPNEA, UNSPECIFIED (13) Cellulitis Code(s): L03.90 - CELLULITIS, UNSPECIFIED Assessment/Plan IMP CELLULITIS S/P MECHANICAL FALL CHF ASHD S/P PCI OSAS AFIB H/O DVT/PE PULMONARY HTN MORBID OBESITY CKD PLAN LASIX O2 ABX INHALED BRONCHODILATORS BIPAP AT NIGHT AC MONITOR LYTES,RENAL FUNCTION DR MACHADO Problem List - Problems (1) Accident due to mechanical fall without injury Code(s): W19.XXXA - UNSPECIFIED FALL, INITIAL ENCOUNTER (2) Atrial fibrillation Code(s): I48.91 - UNSPECIFIED ATRIAL FIBRILLATION Qualifiers: Atrial fibrillation type: chronic Qualified Code(s): I48.2 - Chronic atrial fibrillation (3) CAD (coronary artery disease) Code(s): I25.10 - ATHSCL HEART DISEASE OF [place] CORONARY ARTERY W/O ANG PCTRS (4) CHF (congestive heart failure) Code(s): I50.9 - HEART FAILURE, UNSPECIFIED (5) DVT (deep venous thrombosis) Code(s): I82.409 - ACUTE EMBOLISM AND THOMBOS UNSP DEEP VN UNSP LOWER EXTREMITY Qualifiers: DVT location: lower extremity Affected thrombotic vein of extremity: femoral Chronicity: chronic Laterality: right Qualified Code(s): I82.511 - Chronic embolism and thrombosis of right femoral vein (6) Obesities, morbid Code(s): E66.01 - MORBID (SEVERE) OBESITY DUE TO EXCESS CALORIES (7) Pulmonary embolism Code(s): I26.99 - OTHER PULMONARY EMBOLISM WITHOUT ACUTE COR PULMONALE (8) Venous (peripheral) insufficiency Code(s): I87.2 - VENOUS INSUFFICIENCY (CHRONIC) (PERIPHERAL) (9) Sleep apnea Code(s): G47.30 - SLEEP APNEA, UNSPECIFIED (10) COPD (chronic obstructive pulmonary disease) Code(s): J44.9 - CHRONIC OBSTRUCTIVE PULMONARY DISEASE, UNSPECIFIED (11) Pulmonary HTN Code(s): I27.20 - PULMONARY HYPERTENSION, UNSPECIFIED (12) Dyspnea Code(s): R06.00 - DYSPNEA, UNSPECIFIED (13) Cellulitis Code(s): L03.90 - CELLULITIS, UNSPECIFIED
--- NOTE | 2017-07-14 15:22 | PN ---
Progress Note, Physician Chief Complaint: stable doing well breathing issues - Current Medication List Current Medications: Active Medications Acetaminophen (Tylenol -) 650 mg PO Q8H PRN PRN Reason: FEVER Last Admin: 07/14/17 09:51 Dose: 650 mg Acetaminophen (Tylenol -) 650 mg PO HS [facility] Last Admin: 07/13/17 22:00 Dose: 650 mg Albuterol/Ipratropium (Duoneb -) 1 amp NEB RQID [facility] Last Admin: 07/14/17 08:30 Dose: 1 amp Aspirin (Asa -) 81 mg PO DAILY [facility] Last Admin: 07/14/17 09:42 Dose: 81 mg Atenolol (Tenormin -) 100 mg PO BID [facility] Last Admin: 07/14/17 09:43 Dose: Not Given Atorvastatin Calcium (Lipitor -) 80 mg PO HS [facility] Last Admin: 07/13/17 22:02 Dose: 80 mg Collagenase (Santyl -) 1 applic TP DAILY [facility] Last Admin: 07/14/17 09:52 Dose: 1 applic Furosemide (Lasix -) 80 mg PO BID@0600,1800 [facility] Last Admin: 07/13/17 06:57 Dose: 80 mg Glipizide (Glucotrol Xl -) 10 mg PO BID [facility] Last Admin: 07/14/17 09:43 Dose: 10 mg Piperacillin Sod/Tazobactam (Sod 2.25 gm/ Dextrose) 50 mls @ 100 mls/hr IVPB Q8H-IV [facility] PRN Reason: Protocol Last Admin: 07/14/17 09:44 Dose: 100 mls/hr Insulin Aspart (Novolog Vial Sliding Scale -) 1 vial SQ ACHS [facility] PRN Reason: Protocol Last Admin: 07/14/17 11:35 Dose: 6 units Insulin Detemir (Levemir Vial) 40 units SQ DAILY@0700 [facility] Last Admin: 07/14/17 06:45 Dose: 40 units Levothyroxine Sodium (Synthroid -) 100 mcg PO DAILY@0700 [facility] Last Admin: 07/14/17 06:45 Dose: 100 mcg Liraglutide (Victoza -) 1.8 mg SQ DAILY@0700 [facility] Last Admin: 07/14/17 06:45 Dose: 1.8 mg Lisinopril (Prinivil) 10 mg PO DAILY [facility] Last Admin: 07/13/17 10:44 Dose: Not Given Oxycodone HCl (Roxicodone -) 10 mg PO HS [facility] Last Admin: 07/13/17 22:01 Dose: 10 mg Rivaroxaban (Xarelto -) 20 mg PO DAILY@1730 [facility] Last Admin: 07/13/17 18:10 Dose: 20 mg - Objective Vital Signs: Vital Signs Temperature 97.7 F 07/14/17 14:12 Pulse Rate 78 07/14/17 14:12 Respiratory Rate 18 07/14/17 08:50 Blood Pressure 85/52 07/14/17 14:12 O2 Sat by Pulse Oximetry (%) 94 L 07/14/17 09:00 Constitutional: Yes: No Distress, Calm, Obese (morbid) Cardiovascular: Yes: Regular Rate and Rhythm Respiratory: Yes: Poor Air Entry (bases) Gastrointestinal: Yes: Normal Bowel Sounds, Soft Musculoskeletal: Yes: Other Extremities: Yes: Other Wound/Incision: Yes: Dressing Dry and Intact Neurological: Yes: Alert, Oriented Psychiatric: Yes: Alert, Oriented Labs: CBC, BMP 07/14/17 07:50 07/14/17 07:50 INR, PTT INR 2.34 (0.82-1.09) H D 07/14/17 07:50 Assessment/Plan Problem List - Problems (1) Accident due to mechanical fall without injury Code(s): W19.XXXA - UNSPECIFIED FALL, INITIAL ENCOUNTER (2) Atrial fibrillation Code(s): I48.91 - UNSPECIFIED ATRIAL FIBRILLATION Qualifiers: Atrial fibrillation type: chronic Qualified Code(s): I48.2 - Chronic atrial fibrillation (3) CAD (coronary artery disease) Code(s): I25.10 - ATHSCL HEART DISEASE OF [place] CORONARY ARTERY W/O ANG PCTRS (4) CHF (congestive heart failure) Code(s): I50.9 - HEART FAILURE, UNSPECIFIED (5) DVT (deep venous thrombosis) Code(s): I82.409 - ACUTE EMBOLISM AND THOMBOS UNSP DEEP VN UNSP LOWER EXTREMITY Qualifiers: DVT location: lower extremity Affected thrombotic vein of extremity: femoral Chronicity: chronic Laterality: right Qualified Code(s): I82.511 - Chronic embolism and thrombosis of right femoral vein (6) Obesities, morbid Code(s): E66.01 - MORBID (SEVERE) OBESITY DUE TO EXCESS CALORIES (7) Pulmonary embolism Code(s): I26.99 - OTHER PULMONARY EMBOLISM WITHOUT ACUTE COR PULMONALE (8) Venous (peripheral) insufficiency Code(s): I87.2 - VENOUS INSUFFICIENCY (CHRONIC) (PERIPHERAL) (9) Sleep apnea Code(s): G47.30 - SLEEP APNEA, UNSPECIFIED (10) COPD (chronic obstructive pulmonary disease) Code(s): J44.9 - CHRONIC OBSTRUCTIVE PULMONARY DISEASE, UNSPECIFIED (11) Pulmonary HTN Code(s): I27.20 - PULMONARY HYPERTENSION, UNSPECIFIED (12) Dyspnea Code(s): R06.00 - DYSPNEA, UNSPECIFIED (13) Cellulitis Code(s): L03.90 - CELLULITIS, UNSPECIFIED 14) wound infection 15 leukocytosis cx results noted awaiting for identification one more bacteria wbc trending down plan continue abx resp spport elevation of legs rest as per the team
[2017-07-14] MEDS: BACITRACIN 15 GM TUBE TOPICAL OINTMENT TP SCH (17:18)
[2017-07-14] MEDS: RIVAROXABAN 20 MG TABLET PO SCH (17:24)
[2017-07-14] MEDS: ATORVASTATIN CA 80 MG TABLET (FP) PO SCH (21:27)
[2017-07-14] MEDS: oxyCODONE HCL 5 MG TABLET PO SCH (21:34)
[2017-07-14] MEDS: ACETAMINOPHEN 325 MG TABLET (FP) PO SCH (21:35)
[2017-07-15] MEDS ORDERED: PIPERACILLIN/TAZOBACTAM 2.25 GM VIAL IVPB ONE ×3 (00:44→17:02)
[2017-07-15] MEDS ORDERED: DEXTROSE 5%-WATER - 50 ML IVPB ONE ×3 (00:44→17:02)
[2017-07-15] MEDS: PIPERACILLIN/TAZOB 2.25 GM 2.25 GM in DEXTROSE 5%-WATER - 50 ML IVPB SCH ×3 (01:02→17:28)
[2017-07-15] MEDS ORDERED: PT OWN MED DRAWER 7, Y5N ONE ×2 (06:09→21:33)
[2017-07-15] MEDS: FUROSEMIDE 40 MG TABLET (FP) PO SCH ×2 (06:20→17:27)
[2017-07-15] MEDS: LEVOTHYROXINE NA 100 MCG TABLET (FP) PO SCH (06:20)
[2017-07-15] MEDS: ACETAMINOPHEN 325 MG TABLET (FP) PO PRN ×2 (06:20→15:18)
[2017-07-15] MEDS: INSULIN SLIDING SCALE (NOVOLOG) 1 VIAL SQ SCH ×4 (06:22→22:02)
[2017-07-15] MEDS: INSULIN (LEVEMIR) 100 UNITS/ML UNITS SQ SCH ×2 (06:23→09:25)
[2017-07-15] MEDS: LIRAGLUTIDE 0.6 MG/0.1 ML PEN.INJCTR SQ SCH (06:24)
--- NOTE | 2017-07-15 07:14 | PN ---
Progress Note, Physician Chief Complaint: C/O worsening SOB and leakage of the fluid from the edematous LE. Weight gain noted-- ? 420 on admission ro 463 lbs Lasix was held due to worsening BUN/Cr yesterday 83/3.8 History of Present Illness: Morbid obesity. ASHLEY. Bilateral PE. Pulmonary HTN-CTEPH AND CLASS 2 PAH. CHF-mostly diastolic. ASHD. STEMI in 2016 with MICHAEL x2 placed at [facility]. Chronic A.Fib-on a/c-Xarelto/ASA now. Gout. 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 Chronic DVT Right thigh, Stasis ulcers, edema. Chronic wound right Ankle/dobbs-RX at [facility]-groing multiple organisms. - Current Medication List Current Medications: Active Medications Acetaminophen (Tylenol -) 650 mg PO Q8H PRN PRN Reason: FEVER Last Admin: 07/15/17 06:20 Dose: 650 mg Acetaminophen (Tylenol -) 650 mg PO HS [facility] Last Admin: 07/14/17 21:35 Dose: 650 mg Albuterol/Ipratropium (Duoneb -) 1 amp NEB RQID [facility] Last Admin: 07/14/17 21:01 Dose: 1 amp Aspirin (Asa -) 81 mg PO DAILY [facility] Last Admin: 07/14/17 09:42 Dose: 81 mg Atenolol (Tenormin -) 100 mg PO BID [facility] Last Admin: 07/14/17 21:27 Dose: Not Given Atorvastatin Calcium (Lipitor -) 80 mg PO HS [facility] Last Admin: 07/14/17 21:27 Dose: 80 mg Bacitracin (Bacitracin -) 1 applic TP DAILY [facility] Last Admin: 07/14/17 17:18 Dose: 1 applic Collagenase (Santyl -) 1 applic TP DAILY [facility] Last Admin: 07/14/17 09:52 Dose: 1 applic Furosemide (Lasix -) 80 mg PO BID@0600,1800 [facility] Last Admin: 07/15/17 06:20 Dose: 80 mg Glipizide (Glucotrol Xl -) 10 mg PO BID [facility] Last Admin: 07/14/17 21:28 Dose: 10 mg Piperacillin Sod/Tazobactam (Sod 2.25 gm/ Dextrose) 50 mls @ 100 mls/hr IVPB Q8H-IV [facility] PRN Reason: Protocol Last Admin: 07/15/17 01:02 Dose: 100 mls/hr Insulin Aspart (Novolog Vial Sliding Scale -) [address] [facility] PRN Reason: Protocol Last Admin: 07/15/17 06:22 Dose: 2 units Insulin Detemir (Levemir Vial) 40 units SQ DAILY@0700 [facility] Last Admin: 07/15/17 06:23 Dose: 40 units Levothyroxine Sodium (Synthroid -) 100 mcg PO DAILY@0700 [facility] Last Admin: 07/15/17 06:20 Dose: 100 mcg Liraglutide (Victoza -) 1.8 mg SQ DAILY@0700 [facility] Last Admin: 07/15/17 06:24 Dose: 1.8 mg Oxycodone HCl (Roxicodone -) 10 mg PO HS [facility] Last Admin: 07/14/17 21:34 Dose: 10 mg Rivaroxaban (Xarelto -) 20 mg PO DAILY@1730 [facility] Last Admin: 07/14/17 17:24 Dose: 20 mg - Objective Vital Signs: Vital Signs Temperature 97.5 F L 07/15/17 06:40 Pulse Rate 100 H 07/15/17 06:40 Respiratory Rate 20 07/15/17 06:40 Blood Pressure 110/65 07/15/17 06:40 O2 Sat by Pulse Oximetry (%) 95 07/14/17 21:00 Constitutional: Yes: Anxious, Moderate Distress, Obese Eyes: Yes: Conjunctiva Clear, EOM Intact, PERRL. No: Ptosis, Sclera Icterus, Tearing HENT: Yes: Atraumatic, Normocephalic. No: Drooling, Epistaxis Neck: Yes: Supple, Trachea Midline. No: Lymphadenopathy, Rigid, Tenderness, Thyromegaly Cardiovascular: Yes: Pulse Irregular, S1, S2. No: JVD Respiratory: Yes: On Nasal O2, Rales (Now B/L rales posteriorly 1/2 chest), SOB , SOB on Exertion Gastrointestinal: Yes: Normal Bowel Sounds, Soft, Abdomen, Obese. No: Hypoactive Bowel Sounds, Palpable Mass, Tenderness, Vomiting ...Rectal Exam: Yes: Deferred Genitourinary: No: Anuria, Bladder Distention Breast(s): Yes: WNL, Gynecomastia Musculoskeletal: Yes: Back Pain Extremities: Yes: Calf Tenderness, Cyanosis, Erythema. No: Cold Edema: Yes Edema: LLE: 3+, RLE: 3+ Peripheral Pulses WNL: No Integumentary: Yes: Venous Stasis Changes, Other (LE b/l ulcers, with clear drainage) Neurological: Yes: Alert, Oriented ...Motor Strength: WNL Psychiatric: Yes: WNL Labs: CBC, BMP 07/14/17 07:50 07/14/17 07:50 INR, PTT INR 2.34 (0.82-1.09) H D 07/14/17 07:50 Laboratory Results - last 24 hr 07/14/17 07/14/17 07/14/17 07:50 07:50 07:50 WBC 12.9 H RBC 3.00 L Hgb 9.3 L Hct 29.1 L MCV 97.2 H MCH 31.2 MCHC 32.1 RDW 17.3 H Plt Count 132 L MPV 8.8 Neutrophils % 85.5 H Lymphocytes % 6.1 L D Monocytes % 6.5 Eosinophils % 1.6 D Basophils % 0.3 PT with INR 26.40 H INR 2.34 H D Sodium 137 Potassium 4.6 Chloride 104 Carbon Dioxide 23 Anion Gap 10 BUN 83 H Creatinine 3.8 H Creat Clearance w eGFR 16.22 POC Glucometer Random Glucose 202 H D Calcium 7.6 L Total Bilirubin 0.4 D AST 16 ALT 19 Alkaline Phosphatase 75 Total Protein 6.8 Albumin 2.7 L 07/14/17 07/14/17 07/14/17 10:51 16:43 21:28 WBC RBC Hgb Hct MCV MCH MCHC RDW Plt Count MPV Neutrophils % Lymphocytes % Monocytes % Eosinophils % Basophils % PT with INR INR Sodium Potassium Chloride Carbon Dioxide Anion Gap BUN Creatinine Creat Clearance w eGFR POC Glucometer 304 244 275 Random Glucose Calcium Total Bilirubin AST ALT Alkaline Phosphatase Total Protein Albumin 07/15/17 05:56 WBC RBC Hgb Hct MCV MCH MCHC RDW Plt Count MPV Neutrophils % Lymphocytes % Monocytes % Eosinophils % Basophils % PT with INR INR Sodium Potassium Chloride Carbon Dioxide Anion Gap BUN Creatinine Creat Clearance w eGFR POC Glucometer 204 Random Glucose Calcium Total Bilirubin AST ALT Alkaline Phosphatase Total Protein Albumin Problem List - Problems (1) Atrial fibrillation Assessment/Plan: continue rate control, A/C Code(s): I48.91 - UNSPECIFIED ATRIAL FIBRILLATION Qualifiers: Atrial fibrillation type: chronic Qualified Code(s): I48.2 - Chronic atrial fibrillation (2) CHF (congestive heart failure) Assessment/Plan: D/C UVALDO nephrology consult Restart Lasix though noted worsening renal fx Decrease PO fluids intake-restriction 1400 cc Code(s): I50.9 - HEART FAILURE, UNSPECIFIED (3) Cellulitis of right leg Assessment/Plan: IV ABX, ID F/U Wound care Apply UVALDO bandages for venous stasis Code(s): L03.115 - CELLULITIS OF RIGHT LOWER LIMB (4) Diabetes Assessment/Plan: Increase Levemir 60 units QD Novolog sliding scale Code(s): E11.9 - TYPE 2 DIABETES MELLITUS WITHOUT COMPLICATIONS Qualifiers: Diabetes mellitus type: type 2 Diabetes mellitus complication status: with circulatory complication (5) Acute renal failure (ARF) Code(s): N17.9 - ACUTE KIDNEY FAILURE, UNSPECIFIED (6) Acute renal insufficiency Assessment/Plan: Acute renal insufficiency in CKD Diff dx [id number] insufficiency, ATN and hypotension due to sepsis and infection. Code(s): N28.9 - DISORDER OF KIDNEY AND URETER, UNSPECIFIED
[2017-07-15] MEDS: ALBUTEROL SO4 2.5/IPRATROPIUM 0.5 INH SOL 3 ML VIAL.NEB. NEB SCH ×4 (08:25→20:06)
--- NOTE | 2017-07-15 09:18 | PN ---
Progress Note, Physician Chief Complaint: Weight gain noted. - Current Medication List Current Medications: Active Medications Acetaminophen (Tylenol -) 650 mg PO Q8H PRN PRN Reason: FEVER Last Admin: 07/15/17 06:20 Dose: 650 mg Acetaminophen (Tylenol -) 650 mg PO [facility] Last Admin: 07/14/17 21:35 Dose: 650 mg Albuterol/Ipratropium (Duoneb -) 1 amp NEB RQID [facility] Last Admin: 07/15/17 08:25 Dose: 1 amp Aspirin (Asa -) 81 mg PO DAILY [facility] Last Admin: 07/14/17 09:42 Dose: 81 mg Atenolol (Tenormin -) 100 mg PO BID [facility] Last Admin: 07/14/17 21:27 Dose: Not Given Atorvastatin Calcium (Lipitor -) 80 mg PO [facility] Last Admin: 07/14/17 21:27 Dose: 80 mg Bacitracin (Bacitracin -) 1 applic TP DAILY [facility] Last Admin: 07/14/17 17:18 Dose: 1 applic Collagenase (Santyl -) 1 applic TP DAILY [facility] Last Admin: 07/14/17 09:52 Dose: 1 applic Furosemide (Lasix -) 80 mg PO BID@0600,1800 [facility] Last Admin: 07/15/17 06:20 Dose: 80 mg Glipizide (Glucotrol Xl -) 10 mg PO BID [facility] Last Admin: 07/14/17 21:28 Dose: 10 mg Piperacillin Sod/Tazobactam (Sod 2.25 gm/ Dextrose) 50 mls @ 100 mls/hr IVPB Q8H-IV [facility] PRN Reason: Protocol Last Admin: 07/15/17 01:02 Dose: 100 mls/hr Insulin Aspart (Novolog Vial Sliding Scale -) 1 vial SQ ACHS [facility] PRN Reason: Protocol Last Admin: 07/15/17 06:22 Dose: 2 units Insulin Detemir (Levemir Vial) 60 units SQ DAILY@0700 [facility] Levothyroxine Sodium (Synthroid -) 100 mcg PO DAILY@0700 [facility] Last Admin: 07/15/17 06:20 Dose: 100 mcg Liraglutide (Victoza -) 1.8 mg SQ DAILY@0700 [facility] Last Admin: 07/15/17 06:24 Dose: 1.8 mg Oxycodone HCl (Roxicodone -) 10 mg PO [facility] Last Admin: 07/14/17 21:34 Dose: 10 mg Rivaroxaban (Xarelto -) 15 mg PO DAILY [facility] - Objective Vital Signs: Vital Signs Temperature 97.5 F L 07/15/17 06:40 Pulse Rate 100 H 07/15/17 06:40 Respiratory Rate 20 07/15/17 06:40 Blood Pressure 110/65 07/15/17 06:40 O2 Sat by Pulse Oximetry (%) 95 07/14/17 21:00 Constitutional: Yes: No Distress, Calm Cardiovascular: Yes: Pulse Irregular Respiratory: Yes: Other (bibasilar rales 1/3 up) Gastrointestinal: Yes: Soft, Abdomen, Obese Edema: Yes Edema: LLE: 2+, RLE: 2+ Neurological: Yes: Alert, Oriented Labs: CBC, BMP 07/14/17 07:50 07/14/17 07:50 INR, PTT INR 2.34 (0.82-1.09) H D 07/14/17 07:50 Assessment/Plan IMP: Fall ARF, acute on chronic RLE cellulitis Morbid obesity PHTN Chronic AF, on Xarelto, currently rate controlled CAD s/p PCI Acute on chronic diastolic CHF REC: Lasix and UVALDO-I were held for several days due to rising BUN and creatinine. Now with weight gain and development of clinical signs of volume overload, mild. Agree with resumption of Lasix with close monitoring renal fx Continue to hold UVALDO-I.
[2017-07-15] MEDS: BACITRACIN 15 GM TUBE TOPICAL OINTMENT TP SCH (11:24)
[2017-07-15] MEDS: glipiZIDE-XL 10 MG TAB.ER.24 (FP) PO SCH ×2 (11:25→22:00)
[2017-07-15] MEDS: ASPIRIN 81 MG CHEWABLE TABLETS PO SCH (11:25)
[2017-07-15] MEDS: ATENOLOL 50 MG TABLET (FP) PO SCH ×2 (11:27→22:03)
[2017-07-15] MEDS: COLLAGENASE CLOSTRIDIUM HIST. 30 GRAMS TUBE TP SCH (11:28)
[2017-07-15] MEDS: RIVAROXABAN 15 MG TABLET PO SCH (11:31)
--- NOTE | 2017-07-15 11:48 | PN ---
Progress Note (short form) - Note Progress Note: PULMONARY Denies shortness of breath, cough or wheezing. Using his home BiPAP. Last Vital Signs Temp Pulse Resp BP Pulse Ox 97.9 F 92 H 20 106/60 94 L 07/15/17 10:00 07/15/17 10:00 07/15/17 10:00 07/15/17 10:00 07/15/17 09:00 Gen: NAD at rest Heart: RRR Lung: distant breath sounds Abd: soft, nontender Ext: chronic changes, dressings with drainage CBC, BMP 07/14/17 07:50 07/14/17 07:50 Active Medications Acetaminophen (Tylenol -) 650 mg PO Q8H PRN PRN Reason: FEVER Last Admin: 07/15/17 06:20 Dose: 650 mg Acetaminophen (Tylenol -) 650 mg PO HS [facility] Last Admin: 07/14/17 21:35 Dose: 650 mg Albuterol/Ipratropium (Duoneb -) 1 amp NEB RQID [facility] Last Admin: 07/15/17 08:25 Dose: 1 amp Aspirin (Asa -) 81 mg PO DAILY [facility] Last Admin: 07/15/17 11:25 Dose: 81 mg Atenolol (Tenormin -) 100 mg PO BID [facility] Last Admin: 07/15/17 11:27 Dose: 100 mg Atorvastatin Calcium (Lipitor -) 80 mg PO HS [facility] Last Admin: 07/14/17 21:27 Dose: 80 mg Bacitracin (Bacitracin -) 1 applic TP DAILY [facility] Last Admin: 07/15/17 11:24 Dose: 1 applic Collagenase (Santyl -) 1 applic TP DAILY [facility] Last Admin: 07/15/17 11:28 Dose: 1 applic Furosemide (Lasix -) 80 mg PO BID@0600,1800 [facility] Last Admin: 07/15/17 06:20 Dose: 80 mg Glipizide (Glucotrol Xl -) 10 mg PO BID [facility] Last Admin: 07/15/17 11:25 Dose: 10 mg Piperacillin Sod/Tazobactam (Sod 2.25 gm/ Dextrose) 50 mls @ 100 mls/hr IVPB Q8H-IV [facility] PRN Reason: Protocol Last Admin: 07/15/17 11:29 Dose: 100 mls/hr Insulin Aspart (Novolog Vial Sliding Scale -) 1 vial SQ ACHS [facility] PRN Reason: Protocol Last Admin: 07/15/17 11:30 Dose: Not Given Insulin Detemir (Levemir Vial) 60 units SQ DAILY@0700 [facility] Last Admin: 07/15/17 09:25 Dose: 60 units Levothyroxine Sodium (Synthroid -) 100 mcg PO DAILY@0700 [facility] Last Admin: 07/15/17 06:20 Dose: 100 mcg Liraglutide (Victoza -) 1.8 mg SQ DAILY@0700 [facility] Last Admin: 07/15/17 06:24 Dose: 1.8 mg Oxycodone HCl (Roxicodone -) 10 mg PO HS [facility] Last Admin: 07/14/17 21:34 Dose: 10 mg Rivaroxaban (Xarelto -) 15 mg PO DAILY [facility] Last Admin: 07/15/17 11:31 Dose: 15 mg A/P Cellulitis Morbid Obesity ASHLEY Atrial Fibrillation CAD h/o DVT/PE CKD - continue antibiotics - BiPAP at night 09/10 - inhaled bronchodilators - O2 to keep SpO2 >90% - continue anticoagulation
--- NOTE | 2017-07-15 14:15 | CONSULT ---
Consult Consult Specialty:: Nephrology Reason for Consultation:: CKD with KRUNAL - History of Present Illness Chief Complaint: initially presented after a fall History of Present Illness: Pt is a 61 year old male with pmhx of dialstolick, CHF, CKD, CAD, a-fib, DM, DVT , obesity and chronic lower ext ulcers. He presents to the ER after a fall. He is known to me from outpt visits. He has history fo CKD that has been progressing. He complains of lower ext edema that is worsening and of shortness of breath. He was on lasix 80 mg twice a day at home. He is also being treated for cellulitis. He denies dysuria or hematuria. He is awake and alert. He is able to give history. - History Source History Provided By: Patient, Medical Record - Past Medical History [employer]OR [employer]: Yes: Peripheral Neuropathy Cardio/Vascular: Yes: AFIB, CHF (tolicDias) Pulmonary: Yes: Pulmonary Embolus, Sleep Apnea, Other Gastrointestinal: Yes: Constipation Hepatobiliary: Yes: Cholelithiasis Renal/: Yes: Renal Inusuff Infectious Disease: Yes: Other (RLE cellulitis.) Psych: Yes: Depression Musculoskeletal: Yes: Chronic low back pain Rheumatology: Yes: Gout Endocrine: Yes: Diabetes Mellitus, Hypothyroidism - Past Surgical History Past Surgical History: Yes: Stent - Alcohol/Substance Use Hx Alcohol Use: No History of Substance Use: reports: None - Smoking History Smoking history: Former smoker Have you smoked in the past 12 months: No Aproximately how many cigarettes per day: 0 If you are a former smoker, when did you quit?: 1992 - Social History ADL: Independent History of Recent Travel: No Home Medications - Allergies Allergies/Adverse Reactions: Allergies Allergy/AdvReac Type Severity Reaction Status Date / Time Sulfa (Sulfonamide Allergy Intermediate Rash Verified 07/11/17 23:06 Antibiotics) - Home Medications Home Medications: Ambulatory Orders Oxycodone HCl/Acetaminophen [Percocet 5-325 mg Tablet] 2 combo PO HS PRN Furosemide [Lasix -] 80 mg PO BID@0600,1800 #0 tablet 12/14/11 Glipizide [Glipizide Xl] 10 mg PO BID 02/27/13 Insulin Glargine,Hum.rec.anlog [Lantus Solostar PEN -] 80 unit SQ DAILY Levothyroxine [Synthroid -] 100 mcg PO DAILY 01/26/14 Rivaroxaban [Xarelto -] 20 mg PO DAILY 10/30/14 Atorvastatin Ca [Lipitor] 80 mg PO HS 09/05/15 Lisinopril 10 mg PO DAILY 09/05/15 Atenolol 100 mg PO BID 07/24/16 Mupirocin Cream [Bactroban 2% Cream -] 1 applic TP DAILY #1 tube 11/20/16 Collagenase Clostridium Hist. [Santyl] 1 applic TP DAILY #90 oint...g. 06/14/17 Liraglutide [Victoza -] 1.8 mg SQ DAILY@0700 07/11/17 Family Disease History - Family Disease History Family History: Denies Review of Systems - Review of Systems Constitutional: reports: No Symptoms Eyes: reports: No Symptoms HENT: reports: No Symptoms Neck: reports: No Symptoms Cardiovascular: reports: Edema, Shortness of Breath Respiratory: reports: SOB Gastrointestinal: reports: No Symptoms Genitourinary: reports: No Symptoms Musculoskeletal: reports: No Symptoms Integumentary: reports: Change in Color, Erythema, Wound Neurological: reports: No Symptoms Endocrine: reports: No Symptoms Hematology/Lymphatic: reports: No Symptoms Psychiatric: reports: No Symptoms Physical Exam Vital Signs: Vital Signs Temperature 97.9 F 07/15/17 10:00 Pulse Rate 92 H 07/15/17 10:00 Respiratory Rate 20 07/15/17 10:00 Blood Pressure 106/60 07/15/17 10:00 O2 Sat by Pulse Oximetry (%) 94 L 07/15/17 09:00 Constitutional: Yes: Calm Eyes: Yes: Conjunctiva Clear HENT: Yes: Atraumatic Neck: Yes: Supple Cardiovascular: Yes: S1, S2 Respiratory: Yes: CTA Bilaterally Gastrointestinal: Yes: Soft, Abdomen, Obese Renal/: Yes: WNL Musculoskeletal: Yes: WNL Edema: Yes Edema: LLE: 3+, RLE: 3+ Integumentary: Yes: Venous Stasis Changes Wound/Incision: Yes: Other (oozing from legs) Neurological: Yes: Oriented Psychiatric: Yes: Oriented Labs: CBC, BMP 07/14/17 07:50 07/14/17 07:50 Laboratory Tests 03/24/17 03/25/17 03/27/17 07:10 06:24 07:00 WBC Hgb PT with INR INR BUN Creatinine 2.6 H 2.6 H 2.6 H Urine Protein Urine Blood Vancomycin Pre-Dose 03/28/17 03/30/17 07/11/17 09:55 08:30 22:00 WBC 27.8 H D Hgb PT with INR INR BUN Creatinine 2.9 H 2.5 H Urine Protein Urine Blood Vancomycin Pre-Dose 07/11/17 07/12/17 07/12/17 22:00 06:00 07:20 WBC Hgb PT with INR INR BUN Creatinine 2.4 H 2.4 H Urine Protein 2+ H Urine Blood Negative Vancomycin Pre-Dose 07/13/17 07/13/17 07/13/17 06:35 06:35 09:28 WBC 14.2 H D Hgb PT with INR INR BUN Creatinine 3.2 H D Urine Protein Urine Blood Vancomycin Pre-Dose 3.766 L* 07/14/17 07/14/17 07/14/17 07:50 07:50 07:50 WBC 12.9 H Hgb 9.3 L PT with INR 26.40 H INR 2.34 H D BUN 83 H Creatinine 3.8 H Urine Protein Urine Blood Vancomycin Pre-Dose Imaging - Results Ultrasound: Report Reviewed Problem List - Problems (1) CKD (chronic kidney disease) Code(s): N18.9 - CHRONIC KIDNEY DISEASE, UNSPECIFIED (2) Accident due to mechanical fall without injury Code(s): W19.XXXA - UNSPECIFIED FALL, INITIAL ENCOUNTER (3) Acute renal failure (ARF) Code(s): N17.9 - ACUTE KIDNEY FAILURE, UNSPECIFIED Assessment/Plan Current Medications Generic Name Dose Route Start Last Admin Trade Name Freq PRN Reason Stop Dose Admin Acetaminophen 650 mg 07/12/17 08:03 07/15/17 06:20 Tylenol - PO 650 mg Q8H PRN Administration FEVER Acetaminophen 650 mg 07/12/17 22:00 07/14/17 21:35 Tylenol - PO 650 mg HS [facility] Administration Albuterol/Ipratropium 1 amp 07/12/17 16:00 07/15/17 12:14 Duoneb - NEB Not Given RQID [facility] Aspirin 81 mg 07/12/17 11:00 07/15/17 11:25 Asa - PO 81 mg DAILY [facility] Administration Atenolol 100 mg 07/12/17 10:00 07/15/17 11:27 Tenormin - PO 100 mg BID [facility] Administration Atorvastatin Calcium 80 mg 07/12/17 22:00 07/14/17 21:27 Lipitor - PO 80 mg HS [facility] Administration Bacitracin 1 applic 07/14/17 17:15 07/15/17 11:24 Bacitracin - TP 1 applic DAILY [facility] Administration Collagenase 1 applic 07/12/17 10:00 07/15/17 11:28 Santyl - TP 1 applic DAILY [facility] Administration Furosemide 80 mg 07/12/17 18:00 07/15/17 06:20 Lasix - PO 80 mg BID@0600,1800 [facility] Administration Glipizide 10 mg 07/12/17 10:00 07/15/17 11:25 Glucotrol Xl - PO 10 mg BID [facility] Administration Piperacillin Sod/Tazobactam 50 mls @ 100 mls/hr 07/13/17 18:00 07/15/17 11:29 Sod 2.25 gm/ Dextrose IVPB 100 mls/hr Q8H-IV [facility] Administration Protocol Insulin Aspart 1 vial 07/14/17 11:15 07/15/17 11:30 Novolog Vial Sliding Scale - SQ Not Given [facility] Protocol Insulin Detemir 60 units 07/15/17 08:45 07/15/17 09:25 Levemir Vial SQ 60 units DAILY@0700 [facility] Administration Levothyroxine Sodium 100 mcg 07/12/17 07:00 07/15/17 06:20 Synthroid - PO 100 mcg DAILY@0700 [facility] Administration Liraglutide 1.8 mg 07/13/17 07:00 07/15/17 06:24 Victoza - SQ 1.8 mg DAILY@0700 NEIL Administration Oxycodone HCl 10 mg 07/12/17 22:00 07/14/17 21:34 Roxicodone - PO 10 mg HS NEIL Administration Rivaroxaban 15 mg 07/15/17 10:00 07/15/17 11:31 Xarelto - PO 15 mg DAILY NEIL Administration Impression 1. CKD 2. KRUNAL 3. volume overload 4. obesity 5. CAD 6. cellulitis 7. s/p fall 8. a-fib 9. DM 10. hypothyroidism 11. HLD 12. CHF Plan - agree with restarting lasix - repeat labs in am - renal ultrasound reviewed, limited due to body habitus - repeat ua - will send urine lytes, urea and humidifier attendant - check urine eos - will follow Dr Quiroz
--- NOTE | 2017-07-15 15:09 | PN ---
Progress Note, Physician History of Present Illness: no complaints breathing better dressing present on the legs - Current Medication List Current Medications: Active Medications Acetaminophen (Tylenol -) 650 mg PO Q8H PRN PRN Reason: FEVER Last Admin: 07/15/17 06:20 Dose: 650 mg Acetaminophen (Tylenol -) 650 mg PO HS [facility] Last Admin: 07/14/17 21:35 Dose: 650 mg Albuterol/Ipratropium (Duoneb -) 1 amp NEB RQID [facility] Last Admin: 07/15/17 12:14 Dose: Not Given Aspirin (Asa -) 81 mg PO DAILY [facility] Last Admin: 07/15/17 11:25 Dose: 81 mg Atenolol (Tenormin -) 100 mg PO BID [facility] Last Admin: 07/15/17 11:27 Dose: 100 mg Atorvastatin Calcium (Lipitor -) 80 mg PO HS [facility] Last Admin: 07/14/17 21:27 Dose: 80 mg Bacitracin (Bacitracin -) 1 applic TP DAILY [facility] Last Admin: 07/15/17 11:24 Dose: 1 applic Collagenase (Santyl -) 1 applic TP DAILY [facility] Last Admin: 07/15/17 11:28 Dose: 1 applic Furosemide (Lasix -) 80 mg PO BID@0600,1800 [facility] Last Admin: 07/15/17 06:20 Dose: 80 mg Glipizide (Glucotrol Xl -) 10 mg PO BID [facility] Last Admin: 07/15/17 11:25 Dose: 10 mg Piperacillin Sod/Tazobactam (Sod 2.25 gm/ Dextrose) 50 mls @ 100 mls/hr IVPB Q8H-IV [facility] PRN Reason: Protocol Last Admin: 07/15/17 11:29 Dose: 100 mls/hr Insulin Aspart (Novolog Vial Sliding Scale -) 1 vial SQ ACHS [facility] PRN Reason: Protocol Last Admin: 07/15/17 11:30 Dose: Not Given Insulin Detemir (Levemir Vial) 60 units SQ DAILY@0700 [facility] Last Admin: 07/15/17 09:25 Dose: 60 units Levothyroxine Sodium (Synthroid -) 100 mcg PO DAILY@0700 [facility] Last Admin: 07/15/17 06:20 Dose: 100 mcg Liraglutide (Victoza -) 1.8 mg SQ DAILY@0700 [facility] Last Admin: 07/15/17 06:24 Dose: 1.8 mg Oxycodone HCl (Roxicodone -) 10 mg PO HS [facility] Last Admin: 07/14/17 21:34 Dose: 10 mg Rivaroxaban (Xarelto -) 15 mg PO DAILY [facility] Last Admin: 07/15/17 11:31 Dose: 15 mg - Objective Vital Signs: Vital Signs Temperature 97.9 F 07/15/17 10:00 Pulse Rate 92 H 07/15/17 10:00 Respiratory Rate 20 07/15/17 10:00 Blood Pressure 106/60 07/15/17 10:00 O2 Sat by Pulse Oximetry (%) 94 L 07/15/17 09:00 Constitutional: Yes: No Distress, Calm, Obese Cardiovascular: Yes: Regular Rate and Rhythm Respiratory: Yes: Regular, Poor Air Entry (bases) Gastrointestinal: Yes: Normal Bowel Sounds, Soft Musculoskeletal: Yes: WNL Extremities: Yes: Other Wound/Incision: Yes: Dressing Dry and Intact Neurological: Yes: Alert, Oriented Psychiatric: Yes: Alert, Oriented Labs: CBC, BMP 07/14/17 07:50 07/14/17 07:50 INR, PTT INR 2.34 (0.82-1.09) H D 07/14/17 07:50 Assessment/Plan Problem List - Problems (1) Accident due to mechanical fall without injury Code(s): W19.XXXA - UNSPECIFIED FALL, INITIAL ENCOUNTER (2) Atrial fibrillation Code(s): I48.91 - UNSPECIFIED ATRIAL FIBRILLATION Qualifiers: Atrial fibrillation type: chronic Qualified Code(s): I48.2 - Chronic atrial fibrillation (3) CAD (coronary artery disease) Code(s): I25.10 - ATHSCL HEART DISEASE OF [place] CORONARY ARTERY W/O ANG PCTRS (4) CHF (congestive heart failure) Code(s): I50.9 - HEART FAILURE, UNSPECIFIED (5) DVT (deep venous thrombosis) Code(s): I82.409 - ACUTE EMBOLISM AND THOMBOS UNSP DEEP VN UNSP LOWER EXTREMITY Qualifiers: DVT location: lower extremity Affected thrombotic vein of extremity: femoral Chronicity: chronic Laterality: right Qualified Code(s): I82.511 - Chronic embolism and thrombosis of right femoral vein (6) Obesities, morbid Code(s): E66.01 - MORBID (SEVERE) OBESITY DUE TO EXCESS CALORIES (7) Pulmonary embolism Code(s): I26.99 - OTHER PULMONARY EMBOLISM WITHOUT ACUTE COR PULMONALE (8) Venous (peripheral) insufficiency Code(s): I87.2 - VENOUS INSUFFICIENCY (CHRONIC) (PERIPHERAL) (9) Sleep apnea Code(s): G47.30 - SLEEP APNEA, UNSPECIFIED (10) COPD (chronic obstructive pulmonary disease) Code(s): J44.9 - CHRONIC OBSTRUCTIVE PULMONARY DISEASE, UNSPECIFIED (11) Pulmonary HTN Code(s): I27.20 - PULMONARY HYPERTENSION, UNSPECIFIED (12) Dyspnea Code(s): R06.00 - DYSPNEA, UNSPECIFIED (13) Cellulitis Code(s): L03.90 - CELLULITIS, UNSPECIFIED 14) wound infection 15 leukocytosis plan continue abx resp spport elevation of legs await for cx report rest as per the team
[2017-07-15 18:40] LABS: URINE APPEARANCE CLEAR; URINE BILIRUBIN NEGATIVE (<2.0 mg/dL); URINE COLOR YELLOW; URINE GLUCOSE (UA) NEGATIVE (NEGATIVE); URINE KETONE NEGATIVE (NEGATIVE); URINE LEUK ESTERASE NEGATIVE (NEGATIVE); URINE NITRITE NEGATIVE (NEGATIVE); URINE PROTEIN NEGATIVE (NEGATIVE); URINE UROBILINOGEN NEGATIVE mg/dL (0.2-1.0)
[2017-07-15 18:45] LABS: EPI CELLS RARE /HPF (FEW); URINE MUCUS RARE
[2017-07-15] MEDS: oxyCODONE HCL 5 MG TABLET PO SCH (22:00)
[2017-07-15] MEDS: ACETAMINOPHEN 325 MG TABLET (FP) PO SCH (22:01)
[2017-07-15] MEDS: ATORVASTATIN CA 80 MG TABLET (FP) PO SCH (22:02)
[2017-07-16] MEDS ORDERED: PIPERACILLIN/TAZOBACTAM 2.25 GM VIAL IVPB ONE ×3 (00:54→17:18)
[2017-07-16] MEDS: PIPERACILLIN/TAZOB 2.25 GM 2.25 GM in DEXTROSE 5%-WATER - 50 ML IVPB SCH ×3 (01:13→17:32)
[2017-07-16] MEDS: ACETAMINOPHEN 325 MG TABLET (FP) PO PRN (05:48)
[2017-07-16] MEDS: FUROSEMIDE 40 MG TABLET (FP) PO SCH (05:48)
[2017-07-16] MEDS: INSULIN SLIDING SCALE (NOVOLOG) 1 VIAL SQ SCH ×4 (06:10→22:09)
[2017-07-16] MEDS: INSULIN (LEVEMIR) 100 UNITS/ML UNITS SQ SCH (06:11)
[2017-07-16] MEDS: LEVOTHYROXINE NA 100 MCG TABLET (FP) PO SCH (06:11)
[2017-07-16] MEDS ORDERED: PT OWN MED DRAWER 7, Y5N ONE ×3 (06:49→21:51)
[2017-07-16] MEDS: LIRAGLUTIDE 0.6 MG/0.1 ML PEN.INJCTR SQ SCH (06:50)
[2017-07-16] MEDS: ALBUTEROL SO4 2.5/IPRATROPIUM 0.5 INH SOL 3 ML VIAL.NEB. NEB SCH ×4 (07:20→20:20)
--- NOTE | 2017-07-16 08:13 | PN ---
Progress Note, Physician Chief Complaint: Episode of nasal bleeding in AM today AM. Slightly less dyspneic. Nephrology consult appreciated. Right thigh redness and pain improved. History of Present Illness: Morbid obesity. ASHLEY. Bilateral PE. Pulmonary HTN-CTEPH AND CLASS 2 PAH. CHF-mostly diastolic. ASHD. STEMI in 2016 with MICHAEL x2 placed at [facility]. Chronic A.Fib-on a/c-Xarelto/ASA now. Gout. 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 Chronic DVT Right thigh, Stasis ulcers, edema. Chronic wound right Ankle/dobbs-RX at [facility]-groing multiple organisms. - Current Medication List Current Medications: Active Medications Acetaminophen (Tylenol -) 650 mg PO Q8H PRN PRN Reason: FEVER Last Admin: 07/16/17 05:48 Dose: 650 mg Acetaminophen (Tylenol -) 650 mg PO HS [facility] Last Admin: 07/15/17 22:01 Dose: 650 mg Albuterol/Ipratropium (Duoneb -) 1 amp NEB RQID [facility] Last Admin: 07/16/17 07:20 Dose: 1 amp Atenolol (Tenormin -) 100 mg PO BID [facility] Last Admin: 07/15/17 22:03 Dose: 100 mg Atorvastatin Calcium (Lipitor -) 80 mg PO HS [facility] Last Admin: 07/15/17 22:02 Dose: 80 mg Bacitracin (Bacitracin -) 1 applic TP DAILY [facility] Last Admin: 07/15/17 11:24 Dose: 1 applic Collagenase (Santyl -) 1 applic TP DAILY [facility] Last Admin: 07/15/17 11:28 Dose: 1 applic Furosemide (Lasix -) 80 mg PO BID@0600,1800 [facility] Last Admin: 07/16/17 05:48 Dose: 80 mg Glipizide (Glucotrol Xl -) 10 mg PO BID [facility] Last Admin: 07/15/17 22:00 Dose: 10 mg Piperacillin Sod/Tazobactam (Sod 2.25 gm/ Dextrose) 50 mls @ 100 mls/hr IVPB Q8H-IV [facility] PRN Reason: Protocol Last Admin: 07/16/17 01:13 Dose: 100 mls/hr Insulin Aspart (Novolog Vial Sliding Scale -) 1 vial SQ ACHS [facility] PRN Reason: Protocol Last Admin: 07/16/17 06:10 Dose: Not Given Insulin Detemir (Levemir Vial) 60 units SQ DAILY@0700 [facility] Last Admin: 07/16/17 06:11 Dose: 60 units Levothyroxine Sodium (Synthroid -) 100 mcg PO DAILY@0700 [facility] Last Admin: 07/16/17 06:11 Dose: 100 mcg Liraglutide (Victoza -) 1.8 mg SQ DAILY@0700 [facility] Last Admin: 07/16/17 06:50 Dose: 1.8 mg Oxycodone HCl (Roxicodone -) 10 mg PO HS [facility] Last Admin: 07/15/17 22:00 Dose: 10 mg Rivaroxaban (Xarelto -) 15 mg PO DAILY [facility] Last Admin: 07/15/17 11:31 Dose: 15 mg - Objective Vital Signs: Vital Signs Temperature 97.3 F L 07/16/17 06:02 Pulse Rate 79 07/16/17 06:02 Respiratory Rate 79 H 07/16/17 06:02 Blood Pressure 100/60 07/16/17 06:02 O2 Sat by Pulse Oximetry (%) 98 07/15/17 21:00 Constitutional: Yes: Calm, Mild Distress, Obese Eyes: Yes: Conjunctiva Clear, EOM Intact HENT: Yes: Atraumatic, Normocephalic. No: Drooling Neck: Yes: Supple, Trachea Midline. No: Rigid, Tenderness Cardiovascular: Yes: Pulse Irregular, S1, S2. No: JVD Respiratory: Yes: Regular, Rales (B/B), SOB on Exertion Gastrointestinal: Yes: Normal Bowel Sounds, Soft, Abdomen, Obese. No: Distention, Palpable Mass, Tenderness, Tenderness, Rebound, Vomiting ...Rectal Exam: Yes: Deferred Genitourinary: No: Anuria Breast(s): Yes: WNL, Gynecomastia Musculoskeletal: Yes: WNL Extremities: Yes: Erythema (improved right thig cellulitis). No: Calf Tenderness, Cold, Cyanosis, Pallor Edema: Yes Edema: LLE: 2+, RLE: 2+ Peripheral Pulses WNL: No Wound/Incision: Yes: Other (Right LE skin ulcers-dressing clean) Psychiatric: Yes: WNL, Alert, Oriented. No: Agitated, Suicidal Ideation Labs: CBC, BMP 07/14/17 07:50 07/14/17 07:50 INR, PTT INR 2.34 (0.82-1.09) H D 07/14/17 07:50 Problem List - Problems (1) Atrial fibrillation Assessment/Plan: continue rate control, A/C Code(s): I48.91 - UNSPECIFIED ATRIAL FIBRILLATION Qualifiers: Atrial fibrillation type: chronic Qualified Code(s): I48.2 - Chronic atrial fibrillation (2) CHF (congestive heart failure) Assessment/Plan: OFF UVALDO nephrology consult noted Continue Lasix though noted worsening renal fx Decrease PO fluids intake-restriction 1400 cc Code(s): I50.9 - HEART FAILURE, UNSPECIFIED (3) Cellulitis of right leg Assessment/Plan: Continue IV ABX for the next 48 hrs. and switch to PO Wound care Apply UVALDO bandages for venous stasis Code(s): L03.115 - CELLULITIS OF RIGHT LOWER LIMB (4) Diabetes Assessment/Plan: Increase Levemir 60 units QD Novolog sliding scale Code(s): E11.9 - TYPE 2 DIABETES MELLITUS WITHOUT COMPLICATIONS Qualifiers: Diabetes mellitus type: type 2 Diabetes mellitus complication status: with circulatory complication (5) Acute renal failure (ARF) Code(s): N17.9 - ACUTE KIDNEY FAILURE, UNSPECIFIED (6) Acute renal insufficiency Assessment/Plan: Acute renal insufficiency in CKD Diff dx [id number] insufficiency, ATN and hypotension due to sepsis and infection. Code(s): N28.9 - DISORDER OF KIDNEY AND URETER, UNSPECIFIED (7) Epistaxis Assessment/Plan: D/c ASA for now. Continue Xarelto 15 mg QD and mfollow for recurrence Code(s): R04.0 - EPISTAXIS
[2017-07-16 08:57] LABS: BASO % 0.5 % (0-2.0); EOS % 2.9 % (0-4.5); HEMATOCRIT 27.7 % (35.4-49); HEMOGLOBIN 9.1 GM/dL (11.7-16.9); LYMPH % 9.1 % (8-40); MCH 31.7 pg (25.7-33.7); MCHC 32.8 g/dl (32.0-35.9); MEAN CELL VOLUME 96.9 fl (80-96); MEAN PLT VOLUME 8.5 fl (7.5-11.1); MONO % 7.4 % (3.8-10.2); NEUT % 80.1 % (42.8-82.8); PLATELET COUNT 155 K/MM3 (134-434); RBC 2.86 M/mm3 (4.00-5.60); WHITE BLOOD COUNT 10.1 K/mm3 (4.0-10.0)
--- NOTE | 2017-07-16 09:17 | PN ---
Progress Note, Physician Chief Complaint: no distress Renal input noted - Current Medication List Current Medications: Active Medications Acetaminophen (Tylenol -) 650 mg PO Q8H PRN PRN Reason: FEVER Last Admin: 07/16/17 05:48 Dose: 650 mg Acetaminophen (Tylenol -) 650 mg PO [facility] Last Admin: 07/15/17 22:01 Dose: 650 mg Albuterol/Ipratropium (Duoneb -) 1 amp NEB RQID [facility] Last Admin: 07/16/17 07:20 Dose: 1 amp Atenolol (Tenormin -) 100 mg PO BID [facility] Last Admin: 07/15/17 22:03 Dose: 100 mg Atorvastatin Calcium (Lipitor -) 80 mg PO [facility] Last Admin: 07/15/17 22:02 Dose: 80 mg Bacitracin (Bacitracin -) 1 applic TP DAILY [facility] Last Admin: 07/15/17 11:24 Dose: 1 applic Collagenase (Santyl -) 1 applic TP DAILY [facility] Last Admin: 07/15/17 11:28 Dose: 1 applic Furosemide (Lasix -) 80 mg PO BID@0600,1800 [facility] Last Admin: 07/16/17 05:48 Dose: 80 mg Glipizide (Glucotrol Xl -) 10 mg PO BID [facility] Last Admin: 07/15/17 22:00 Dose: 10 mg Piperacillin Sod/Tazobactam (Sod 2.25 gm/ Dextrose) 50 mls @ 100 mls/hr IVPB Q8H-IV [facility] PRN Reason: Protocol Last Admin: 07/16/17 01:13 Dose: 100 mls/hr Insulin Aspart (Novolog Vial Sliding Scale -) 1 vial SQ [facility] PRN Reason: Protocol Last Admin: 07/16/17 06:10 Dose: Not Given Insulin Detemir (Levemir Vial) 60 units SQ DAILY@0700 [facility] Last Admin: 07/16/17 06:11 Dose: 60 units Levothyroxine Sodium (Synthroid -) 100 mcg PO DAILY@0700 [facility] Last Admin: 07/16/17 06:11 Dose: 100 mcg Liraglutide (Victoza -) 1.8 mg SQ DAILY@0700 [facility] Last Admin: 07/16/17 06:50 Dose: 1.8 mg Oxycodone HCl (Roxicodone -) 10 mg PO [facility] Last Admin: 07/15/17 22:00 Dose: 10 mg Rivaroxaban (Xarelto -) 15 mg PO DAILY [facility] Last Admin: 07/15/17 11:31 Dose: 15 mg - Objective Vital Signs: Vital Signs Temperature 97.3 F L 07/16/17 06:02 Pulse Rate 79 07/16/17 06:02 Respiratory Rate 79 H 07/16/17 06:02 Blood Pressure 100/60 07/16/17 06:02 O2 Sat by Pulse Oximetry (%) 98 07/15/17 21:00 Eyes: Yes: Conjunctiva Clear Cardiovascular: Yes: Regular Rate and Rhythm Respiratory: Yes: Other (rales at bases) Gastrointestinal: Yes: Soft, Abdomen, Obese Edema: Yes Edema: LLE: 2+, RLE: 2+ Neurological: Yes: Alert, Oriented Labs: CBC, BMP 07/16/17 07:45 INR, PTT INR 2.34 (0.82-1.09) H D 07/14/17 07:50 Laboratory Tests 07/14/17 07/16/17 07/16/17 07:50 07:30 07:45 WBC 10.1 H Hgb 9.1 L Plt Count 155 INR 2.34 H D Sodium Pending Potassium Pending Chloride Pending Carbon Dioxide Pending Anion Gap Pending BUN Pending Creatinine Pending Creat Clearance w eGFR Pending Random Glucose Pending Assessment/Plan IMP: Fall ARF, acute on chronic RLE cellulitis Morbid obesity PHTN Chronic AF, on Xarelto, currently rate controlled CAD s/p PCI Acute on chronic diastolic CHF REC: Lasix and UVALDO-I were held for several days due to rising BUN and creatinine. Now with weight gain and development of clinical signs of volume overload, mild. Lasix resumed, nephrology following. Continue to hold UVALDO-I.
[2017-07-16 09:24] LABS: ALBUMIN 2.7 g/dl (3.4-5.0); ANION GAP 12 (8-16); BILIRUBIN,TOTAL 0.7 mg/dL (0.2-1.0); CALCIUM 8.1 mg/dL (8.5-10.1); CHLORIDE 103 mmol/L (98-107); CO2 23 mmol/L (21-32); CREATININE 4.3 mg/dL (0.7-1.3); GLUCOSE,RANDOM 152 mg/dL (74-106); POTASSIUM 5.4 mmol/L (3.5-5.1); SGOT/AST 17 U/L (15-37); SGPT/ALT 19 U/L (12-78); SODIUM 138 mmol/L (136-145); TOT PROT 7.1 g/dl (6.4-8.2)
[2017-07-16 09:25] LABS: ALK PHOS 75 U/L (45-117)
[2017-07-16 09:27] LABS: BLOOD UREA NITROGEN 106 mg/dL (7-18)
[2017-07-16] MEDS ORDERED: DEXTROSE 5%-WATER - 50 ML IVPB ONE (09:41)
[2017-07-16] MEDS: RIVAROXABAN 15 MG TABLET PO SCH (09:54)
[2017-07-16] MEDS: glipiZIDE-XL 10 MG TAB.ER.24 (FP) PO SCH ×2 (09:54→22:07)
[2017-07-16] MEDS: ATENOLOL 50 MG TABLET (FP) PO SCH ×2 (09:54→22:07)
--- NOTE | 2017-07-16 10:52 | PN ---
Progress Note (short form) - Note Progress Note: Please see complete note from earlier today. Patient's weight continues to increase, rales on exam and CXR appears more congested. D/W Dr. Quiroz and Dr. Hudson- will attempt more aggressive diuresis w/ IV Lasix Close monitoring renal fxn
[2017-07-16] MEDS ORDERED: INSULIN (NOVOLOG) ASPART 100 UNITS/ML 10ML VIAL ONE ×2 (11:31→22:05)
[2017-07-16] MEDS: COLLAGENASE CLOSTRIDIUM HIST. 30 GRAMS TUBE TP SCH (11:39)
[2017-07-16] MEDS: FUROSEMIDE 40 MG/4 ML INJECTABLE VIAL IVPUSH SCH (11:39)
[2017-07-16] MEDS: BACITRACIN 15 GM TUBE TOPICAL OINTMENT TP SCH (11:40)
--- NOTE | 2017-07-16 11:49 | PN ---
Progress Note (short form) - Note Progress Note: PULMONARY Denies shortness of breath, cough or wheezing. Using his home BiPAP. Appears comfortable lying flat VSS/afebrile Gen: NAD at rest Heart: RRR Lung: distant breath sounds Abd: soft, nontender Ext: chronic changes, dressings with drainage labs/notes/images reviewed Acetaminophen (Tylenol -) 650 mg PO Q8H PRN PRN Reason: FEVER Last Admin: 07/15/17 06:20 Dose: 650 mg Acetaminophen (Tylenol -) 650 mg PO HS [facility] Last Admin: 07/14/17 21:35 Dose: 650 mg Albuterol/Ipratropium (Duoneb -) 1 amp NEB RQID [facility] Last Admin: 07/15/17 08:25 Dose: 1 amp Aspirin (Asa -) 81 mg PO DAILY [facility] Last Admin: 07/15/17 11:25 Dose: 81 mg Atenolol (Tenormin -) 100 mg PO BID [facility] Last Admin: 07/15/17 11:27 Dose: 100 mg Atorvastatin Calcium (Lipitor -) 80 mg PO HS [facility] Last Admin: 07/14/17 21:27 Dose: 80 mg Bacitracin (Bacitracin -) 1 applic TP DAILY [facility] Last Admin: 07/15/17 11:24 Dose: 1 applic Collagenase (Santyl -) 1 applic TP DAILY [facility] Last Admin: 07/15/17 11:28 Dose: 1 applic Furosemide (Lasix -) 80 mg PO BID@0600,1800 [facility] Last Admin: 07/15/17 06:20 Dose: 80 mg Glipizide (Glucotrol Xl -) 10 mg PO BID [facility] Last Admin: 07/15/17 11:25 Dose: 10 mg Piperacillin Sod/Tazobactam (Sod 2.25 gm/ Dextrose) 50 mls @ 100 mls/hr IVPB Q8H-IV [facility] PRN Reason: Protocol Last Admin: 07/15/17 11:29 Dose: 100 mls/hr Insulin Aspart (Novolog Vial Sliding Scale -) 1 vial SQ ACHS [facility] PRN Reason: Protocol Last Admin: 07/15/17 11:30 Dose: Not Given Insulin Detemir (Levemir Vial) 60 units SQ DAILY@0700 [facility] Last Admin: 07/15/17 09:25 Dose: 60 units Levothyroxine Sodium (Synthroid -) 100 mcg PO DAILY@0700 [facility] Last Admin: 07/15/17 06:20 Dose: 100 mcg Liraglutide (Victoza -) 1.8 mg SQ DAILY@0700 [facility] Last Admin: 07/15/17 06:24 Dose: 1.8 mg Oxycodone HCl (Roxicodone -) 10 mg PO HS [facility] Last Admin: 07/14/17 21:34 Dose: 10 mg Rivaroxaban (Xarelto -) 15 mg PO DAILY [facility] Last Admin: 07/15/17 11:31 Dose: 15 mg A/P Cellulitis Morbid Obesity ASHLEY Atrial Fibrillation CAD h/o DVT/PE CKD - continue antibiotics - BiPAP at night 09/10 - inhaled bronchodilators - O2 to keep SpO2 >90% - continue anticoagulation Jean Marie JACOBSEN MD
[2017-07-16] MEDS ORDERED: VANCOMYCIN 1,000 MG in DEXTROSE 5%-WATER - 250 ML IVPB ONE (15:00)
--- NOTE | 2017-07-16 15:00 | PN ---
Progress Note, Physician History of Present Illness: no complaints breathing better - Current Medication List Current Medications: Active Medications Acetaminophen (Tylenol -) 650 mg PO Q8H PRN PRN Reason: FEVER Last Admin: 07/16/17 05:48 Dose: 650 mg Acetaminophen (Tylenol -) 650 mg PO [facility] Last Admin: 07/15/17 22:01 Dose: 650 mg Albuterol/Ipratropium (Duoneb -) 1 amp NEB RQID [facility] Last Admin: 07/16/17 11:20 Dose: 1 amp Atenolol (Tenormin -) 100 mg PO BID [facility] Last Admin: 07/16/17 09:54 Dose: 100 mg Atorvastatin Calcium (Lipitor -) 80 mg PO HS [facility] Last Admin: 07/15/17 22:02 Dose: 80 mg Bacitracin (Bacitracin -) 1 applic TP DAILY [facility] Last Admin: 07/16/17 11:40 Dose: 1 applic Collagenase (Santyl -) 1 applic TP DAILY [facility] Last Admin: 07/16/17 11:39 Dose: 1 applic Furosemide (Lasix Injection -) 80 mg IVPUSH DAILY [facility] Last Admin: 07/16/17 11:39 Dose: 80 mg Glipizide (Glucotrol Xl -) 10 mg PO BID [facility] Last Admin: 07/16/17 09:54 Dose: 10 mg Piperacillin Sod/Tazobactam (Sod 2.25 gm/ Dextrose) 50 mls @ 100 mls/hr IVPB Q8H-IV [facility] PRN Reason: Protocol Last Admin: 07/16/17 09:55 Dose: 100 mls/hr Insulin Aspart (Novolog Vial Sliding Scale -) 1 vial SQ ACHS [facility] PRN Reason: Protocol Last Admin: 07/16/17 11:35 Dose: Not Given Insulin Detemir (Levemir Vial) 60 units SQ DAILY@0700 [facility] Last Admin: 07/16/17 06:11 Dose: 60 units Levothyroxine Sodium (Synthroid -) 100 mcg PO DAILY@0700 [facility] Last Admin: 07/16/17 06:11 Dose: 100 mcg Liraglutide (Victoza -) 1.8 mg SQ DAILY@0700 [facility] Last Admin: 07/16/17 06:50 Dose: 1.8 mg Oxycodone HCl (Roxicodone -) 10 mg PO [facility] Last Admin: 07/15/17 22:00 Dose: 10 mg Rivaroxaban (Xarelto -) 15 mg PO DAILY [facility] Last Admin: 07/16/17 09:54 Dose: 15 mg - Objective Vital Signs: Vital Signs Temperature 97.3 F L 07/16/17 06:02 Pulse Rate 80 07/16/17 10:00 Respiratory Rate 20 07/16/17 10:00 Blood Pressure 100/60 07/16/17 10:00 O2 Sat by Pulse Oximetry (%) 98 07/15/17 21:00 Constitutional: Yes: No Distress, Calm Cardiovascular: Yes: Regular Rate and Rhythm Respiratory: Yes: On BiPap, On Nasal O2, Poor Air Entry Gastrointestinal: Yes: Normal Bowel Sounds, Soft Musculoskeletal: Yes: WNL Extremities: Yes: Other Wound/Incision: Yes: Dressing Dry and Intact Neurological: Yes: Alert, Oriented Psychiatric: Yes: Alert, Oriented Labs: CBC, BMP 07/16/17 07:45 07/16/17 07:30 INR, PTT INR 2.34 (0.82-1.09) H D 07/14/17 07:50 Assessment/Plan Problem List - Problems (1) Accident due to mechanical fall without injury Code(s): W19.XXXA - UNSPECIFIED FALL, INITIAL ENCOUNTER (2) Atrial fibrillation Code(s): I48.91 - UNSPECIFIED ATRIAL FIBRILLATION Qualifiers: Atrial fibrillation type: chronic Qualified Code(s): I48.2 - Chronic atrial fibrillation (3) CAD (coronary artery disease) Code(s): I25.10 - ATHSCL HEART DISEASE OF [place] CORONARY ARTERY W/O ANG PCTRS (4) CHF (congestive heart failure) Code(s): I50.9 - HEART FAILURE, UNSPECIFIED (5) DVT (deep venous thrombosis) Code(s): I82.409 - ACUTE EMBOLISM AND THOMBOS UNSP DEEP VN UNSP LOWER EXTREMITY Qualifiers: DVT location: lower extremity Affected thrombotic vein of extremity: femoral Chronicity: chronic Laterality: right Qualified Code(s): I82.511 - Chronic embolism and thrombosis of right femoral vein (6) Obesities, morbid Code(s): E66.01 - MORBID (SEVERE) OBESITY DUE TO EXCESS CALORIES (7) Pulmonary embolism Code(s): I26.99 - OTHER PULMONARY EMBOLISM WITHOUT ACUTE COR PULMONALE (8) Venous (peripheral) insufficiency Code(s): I87.2 - VENOUS INSUFFICIENCY (CHRONIC) (PERIPHERAL) (9) Sleep apnea Code(s): G47.30 - SLEEP APNEA, UNSPECIFIED (10) COPD (chronic obstructive pulmonary disease) Code(s): J44.9 - CHRONIC OBSTRUCTIVE PULMONARY DISEASE, UNSPECIFIED (11) Pulmonary HTN Code(s): I27.20 - PULMONARY HYPERTENSION, UNSPECIFIED (12) Dyspnea Code(s): R06.00 - DYSPNEA, UNSPECIFIED (13) Cellulitis Code(s): L03.90 - CELLULITIS, UNSPECIFIED 14) wound infection 15 leukocytosis cx result noted sensitivities noted plan continue abx resp spport elevation of legs rest as per the team will give one dose of vanco will check vanco levels tomorrow
--- NOTE | 2017-07-16 16:39 | PN ---
Progress Note, Physician History of Present Illness: Pt seen and examined at bedside. He is out of breath. He moved to the edge of the bed to sit up and he does appear SOB. - Current Medication List Current Medications: Active Medications Acetaminophen (Tylenol -) 650 mg PO Q8H PRN PRN Reason: FEVER Last Admin: 07/16/17 05:48 Dose: 650 mg Acetaminophen (Tylenol -) 650 mg PO HS [facility] Last Admin: 07/15/17 22:01 Dose: 650 mg Albuterol/Ipratropium (Duoneb -) 1 amp NEB RQID [facility] Last Admin: 07/16/17 11:20 Dose: 1 amp Atenolol (Tenormin -) 100 mg PO BID [facility] Last Admin: 07/16/17 09:54 Dose: 100 mg Atorvastatin Calcium (Lipitor -) 80 mg PO HS [facility] Last Admin: 07/15/17 22:02 Dose: 80 mg Bacitracin (Bacitracin -) 1 applic TP DAILY [facility] Last Admin: 07/16/17 11:40 Dose: 1 applic Collagenase (Santyl -) 1 applic TP DAILY [facility] Last Admin: 07/16/17 11:39 Dose: 1 applic Furosemide (Lasix Injection -) 80 mg IVPUSH DAILY [facility] Last Admin: 07/16/17 11:39 Dose: 80 mg Glipizide (Glucotrol Xl -) 10 mg PO BID [facility] Last Admin: 07/16/17 09:54 Dose: 10 mg Piperacillin Sod/Tazobactam (Sod 2.25 gm/ Dextrose) 50 mls @ 100 mls/hr IVPB Q8H-IV [facility] PRN Reason: Protocol Last Admin: 07/16/17 09:55 Dose: 100 mls/hr Vancomycin HCl 1,000 mg/ (Dextrose) 250 mls @ 150 mls/hr IVPB ONCE ONE Stop: 07/16/17 16:39 Insulin Aspart (Novolog Vial Sliding Scale -) 1 vial SQ ACHS [facility] PRN Reason: Protocol Last Admin: 07/16/17 11:35 Dose: Not Given Insulin Detemir (Levemir Vial) 60 units SQ DAILY@0700 [facility] Last Admin: 07/16/17 06:11 Dose: 60 units Levothyroxine Sodium (Synthroid -) 100 mcg PO DAILY@0700 [facility] Last Admin: 07/16/17 06:11 Dose: 100 mcg Liraglutide (Victoza -) 1.8 mg SQ DAILY@0700 [facility] Last Admin: 07/16/17 06:50 Dose: 1.8 mg Oxycodone HCl (Roxicodone -) 10 mg PO HS [facility] Last Admin: 07/15/17 22:00 Dose: 10 mg Rivaroxaban (Xarelto -) 15 mg PO DAILY [facility] Last Admin: 07/16/17 09:54 Dose: 15 mg - Objective Vital Signs: Vital Signs Temperature 97.3 F L 07/16/17 06:02 Pulse Rate 80 07/16/17 10:00 Respiratory Rate 20 07/16/17 10:00 Blood Pressure 100/60 07/16/17 10:00 O2 Sat by Pulse Oximetry (%) 98 07/15/17 21:00 Constitutional: Yes: Calm Eyes: Yes: Conjunctiva Clear HENT: Yes: Atraumatic Cardiovascular: Yes: S1, S2 Respiratory: Yes: Rhonchi Gastrointestinal: Yes: Soft Genitourinary: Yes: WNL Musculoskeletal: Yes: Other (obese) Edema: Yes Edema: LLE: 2+, RLE: 2+ Integumentary: Yes: Erythema, Venous Stasis Changes Neurological: Yes: Oriented Psychiatric: Yes: Oriented Labs: CBC, BMP 07/16/17 07:45 07/16/17 07:30 INR, PTT INR 2.34 (0.82-1.09) H D 07/14/17 07:50 - ....Imaging Chest X-ray: Report Reviewed Problem List - Problems (1) CKD (chronic kidney disease) Code(s): N18.9 - CHRONIC KIDNEY DISEASE, UNSPECIFIED (2) Accident due to mechanical fall without injury Code(s): W19.XXXA - UNSPECIFIED FALL, INITIAL ENCOUNTER (3) Acute renal failure (ARF) Code(s): N17.9 - ACUTE KIDNEY FAILURE, UNSPECIFIED Assessment/Plan Current Medications Generic Name Dose Route Start Last Admin Trade Name Freq PRN Reason Stop Dose Admin Acetaminophen 650 mg 07/12/17 08:03 07/16/17 05:48 Tylenol - PO 650 mg Q8H PRN Administration FEVER Acetaminophen 650 mg 07/12/17 22:00 07/15/17 22:01 Tylenol - PO 650 mg HS [facility] Administration Albuterol/Ipratropium 1 amp 07/12/17 16:00 07/16/17 11:20 Duoneb - NEB 1 amp RQID [facility] Administration Atenolol 100 mg 07/12/17 10:00 07/16/17 09:54 Tenormin - PO 100 mg BID [facility] Administration Atorvastatin Calcium 80 mg 07/12/17 22:00 07/15/17 22:02 Lipitor - PO 80 mg HS [facility] Administration Bacitracin 1 applic 07/14/17 17:15 07/16/17 11:40 Bacitracin - TP 1 applic DAILY [facility] Administration Collagenase 1 applic 07/12/17 10:00 07/16/17 11:39 Santyl - TP 1 applic DAILY [facility] Administration Furosemide 80 mg 07/16/17 11:00 07/16/17 11:39 Lasix Injection - IVPUSH 80 mg DAILY [facility] Administration Glipizide 10 mg 07/12/17 10:00 07/16/17 09:54 Glucotrol Xl - PO 10 mg BID [facility] Administration Piperacillin Sod/Tazobactam 50 mls @ 100 mls/hr 07/13/17 18:00 07/16/17 09:55 Sod 2.25 gm/ Dextrose IVPB 100 mls/hr Q8H-IV [facility] Administration Protocol Vancomycin HCl 1,000 mg/ 250 mls @ 150 mls/hr 07/16/17 15:00 Dextrose IVPB 07/16/17 16:39 ONCE ONE Insulin Aspart 1 vial 07/14/17 11:15 07/16/17 11:35 Novolog Vial Sliding Scale - SQ Not Given [facility] Protocol Insulin Detemir 60 units 07/15/17 08:45 07/16/17 06:11 Levemir Vial SQ 60 units DAILY@0700 [facility] Administration Levothyroxine Sodium 100 mcg 07/12/17 07:00 07/16/17 06:11 Synthroid - PO 100 mcg DAILY@0700 [facility] Administration Liraglutide 1.8 mg 07/13/17 07:00 07/16/17 06:50 Victoza - SQ 1.8 mg DAILY@0700 [facility] Administration Oxycodone HCl 10 mg 07/12/17 22:00 07/15/17 22:00 Roxicodone - PO 10 mg HS [facility] Administration Rivaroxaban 15 mg 07/15/17 10:00 04/20/18 09:54 Xarelto - PO 15 mg DAILY [facility] Administration Impression 1. CKD 2. KRUNAL 3. volume overload 4. obesity 5. CAD 6. cellulitis 7. s/p fall 8. a-fib 9. DM 10. hypothyroidism 11. HLD 12. CHF Plan - cont with lasix - renal function is worsening - discussed with possibility of HD with pt - low potassium diet - keep jasmyne on hold - repeat labs in am - check urine eos - will follow Dr Quiroz
[2017-07-16] MEDS: ATORVASTATIN CA 80 MG TABLET (FP) PO SCH (22:07)
[2017-07-16] MEDS: oxyCODONE HCL 5 MG TABLET PO SCH (22:07)
[2017-07-16] MEDS: ACETAMINOPHEN 325 MG TABLET (FP) PO SCH (22:08)
[2017-07-17] MEDS ORDERED: DEXTROSE 5%-WATER - 50 ML IVPB ONE ×3 (01:48→17:16)
[2017-07-17] MEDS ORDERED: PIPERACILLIN/TAZOBACTAM 2.25 GM VIAL IVPB ONE ×3 (01:48→17:16)
[2017-07-17] MEDS: PIPERACILLIN/TAZOB 2.25 GM 2.25 GM in DEXTROSE 5%-WATER - 50 ML IVPB SCH ×3 (01:51→17:17)
[2017-07-17] MEDS ORDERED: PT OWN MED DRAWER 7, Y5N ONE ×2 (06:19→21:19)
[2017-07-17] MEDS: INSULIN (LEVEMIR) 100 UNITS/ML UNITS SQ SCH (06:29)
[2017-07-17] MEDS: INSULIN SLIDING SCALE (NOVOLOG) 1 VIAL SQ SCH ×4 (06:30→21:27)
[2017-07-17] MEDS: LIRAGLUTIDE 0.6 MG/0.1 ML PEN.INJCTR SQ SCH (06:30)
[2017-07-17] MEDS: LEVOTHYROXINE NA 100 MCG TABLET (FP) PO SCH (06:30)
[2017-07-17] MEDS ORDERED: INSULIN (NOVOLOG) ASPART 100 UNITS/ML 10ML VIAL ONE ×2 (06:58→11:00)
[2017-07-17] MEDS: ALBUTEROL SO4 2.5/IPRATROPIUM 0.5 INH SOL 3 ML VIAL.NEB. NEB SCH ×2 (07:20→11:27)
[2017-07-17 08:23] LABS: ANION GAP 11 (8-16); CHLORIDE 105 mmol/L (98-107); CO2 23 mmol/L (21-32); GLUCOSE,RANDOM 170 mg/dL (74-106); POTASSIUM 5.4 mmol/L (3.5-5.1); SODIUM 139 mmol/L (136-145)
[2017-07-17 08:30] LABS: CALCIUM 8.5 mg/dL (8.5-10.1); CREATININE 4.1 mg/dL (0.7-1.3)
[2017-07-17 08:45] LABS: BLOOD UREA NITROGEN 112 mg/dL (7-18)
--- NOTE | 2017-07-17 09:43 | PN ---
Progress Note, Physician - Current Medication List Current Medications: Active Medications Acetaminophen (Tylenol -) 650 mg PO Q8H PRN PRN Reason: FEVER Last Admin: 07/16/17 05:48 Dose: 650 mg Acetaminophen (Tylenol -) 650 mg PO HS [facility] Last Admin: 07/16/17 22:08 Dose: 650 mg Albuterol/Ipratropium (Duoneb -) 1 amp NEB RQID [facility] Last Admin: 07/17/17 07:20 Dose: 1 amp Atenolol (Tenormin -) 100 mg PO BID [facility] Last Admin: 07/16/17 22:07 Dose: 100 mg Atorvastatin Calcium (Lipitor -) 80 mg PO HS [facility] Last Admin: 07/16/17 22:07 Dose: 80 mg Bacitracin (Bacitracin -) 1 applic TP DAILY [facility] Last Admin: 07/16/17 11:40 Dose: 1 applic Collagenase (Santyl -) 1 applic TP DAILY [facility] Last Admin: 07/16/17 11:39 Dose: 1 applic Furosemide (Lasix Injection -) 80 mg IVPUSH DAILY [facility] Last Admin: 07/16/17 11:39 Dose: 80 mg Glipizide (Glucotrol Xl -) 10 mg PO BID [facility] Last Admin: 07/16/17 22:07 Dose: 10 mg Piperacillin Sod/Tazobactam (Sod 2.25 gm/ Dextrose) 50 mls @ 100 mls/hr IVPB Q8H-IV [facility] PRN Reason: Protocol Last Admin: 07/17/17 01:51 Dose: 100 mls/hr Insulin Aspart (Novolog Vial Sliding Scale -) 1 vial SQ ACHS [facility] PRN Reason: Protocol Last Admin: 07/17/17 06:30 Dose: Not Given Insulin Detemir (Levemir Vial) 60 units SQ DAILY@0700 [facility] Last Admin: 07/17/17 06:29 Dose: 60 units Levothyroxine Sodium (Synthroid -) 100 mcg PO DAILY@0700 [facility] Last Admin: 07/17/17 06:30 Dose: 100 mcg Liraglutide (Victoza -) 1.8 mg SQ DAILY@0700 [facility] Last Admin: 07/17/17 06:30 Dose: 1.8 mg Oxycodone HCl (Roxicodone -) 10 mg PO [facility] Last Admin: 07/16/17 22:07 Dose: 10 mg Rivaroxaban (Xarelto -) 15 mg PO DAILY [facility] Last Admin: 07/16/17 09:54 Dose: 15 mg - Objective Vital Signs: Vital Signs Temperature 98.0 F 07/17/17 08:19 Pulse Rate 104 H 07/17/17 08:19 Respiratory Rate 18 07/17/17 08:19 Blood Pressure 98/56 07/17/17 08:19 O2 Sat by Pulse Oximetry (%) 95 07/17/17 09:00 Eyes: Yes: WNL, Conjunctiva Clear, EOM Intact HENT: Yes: WNL, Atraumatic, Normocephalic Neck: Yes: WNL, Supple, Trachea Midline Cardiovascular: Yes: WNL, Regular Rate and Rhythm Respiratory: Yes: WNL, Regular, CTA Bilaterally Gastrointestinal: Yes: WNL, Normal Bowel Sounds Genitourinary: Yes: WNL Musculoskeletal: Yes: WNL Extremities: Yes: WNL Edema: No Edema: LLE: 2+, RLE: 2+ Integumentary: Yes: WNL Neurological: Yes: WNL, Alert, Oriented ...Motor Strength: WNL Psychiatric: Yes: WNL Labs: CBC, BMP 07/16/17 07:45 07/17/17 06:13 INR, PTT INR 2.34 (0.82-1.09) H D 07/14/17 07:50 Assessment/Plan IMP: Fall ARF, acute on chronic RLE cellulitis Morbid obesity PHTN Chronic AF, on Xarelto, currently rate controlled CAD s/p PCI Acute on chronic diastolic CHF REC: Lasix and UVALDO-I were held for several days due to rising BUN and creatinine. Now with weight gain and development of clinical signs of volume overload, mild. Lasix resumed, nephrology following. Continue to hold UVALDO-I.
[2017-07-17] MEDS: BACITRACIN 15 GM TUBE TOPICAL OINTMENT TP SCH (09:45)
[2017-07-17] MEDS: ATENOLOL 50 MG TABLET (FP) PO SCH ×2 (09:46→21:26)
[2017-07-17] MEDS: glipiZIDE-XL 10 MG TAB.ER.24 (FP) PO SCH ×2 (09:46→21:25)
[2017-07-17] MEDS: FUROSEMIDE 40 MG/4 ML INJECTABLE VIAL IVPUSH SCH (09:46)
[2017-07-17] MEDS: COLLAGENASE CLOSTRIDIUM HIST. 30 GRAMS TUBE TP SCH (09:48)
[2017-07-17] MEDS: RIVAROXABAN 15 MG TABLET PO SCH (09:52)
--- NOTE | 2017-07-17 11:22 | PN ---
Progress Note (short form) - Note Progress Note: PULMONARY Denies shortness of breath, cough or wheezing. Using his home BiPAP. Appears comfortable lying flat VSS/afebrile Gen: NAD at rest Heart: RRR Lung: distant breath sounds Abd: soft, nontender Ext: chronic changes, dressings with drainage labs/notes/images reviewed A/P Cellulitis Morbid Obesity ASHLEY Atrial Fibrillation CAD h/o DVT/PE CKD - continue antibiotics - BiPAP at night 09/10 - inhaled bronchodilators - O2 to keep SpO2 >90% - continue anticoagulation Jean Marie JACOBSEN MD
--- NOTE | 2017-07-17 12:03 | PN ---
Progress Note (short form) - Note Progress Note: Creatinine stable but no significant improvement. GFR is at the borderline for Xarelto use. Will D/C Xarelto today. Begin UFH gtts at 1,100 U/hr tomorrow at 9am and follow protocol. Discussed w/ RN and Dr. Mejia covering me this weekend.
--- NOTE | 2017-07-17 12:05 | PN ---
Progress Note, Physician History of Present Illness: doing well family in room no other issues dressing on legs c/o of pain in the left leg - Current Medication List Current Medications: Active Medications Acetaminophen (Tylenol -) 650 mg PO Q8H PRN PRN Reason: FEVER Last Admin: 07/16/17 05:48 Dose: 650 mg Acetaminophen (Tylenol -) 650 mg PO HS [facility] Last Admin: 07/16/17 22:08 Dose: 650 mg Albuterol/Ipratropium (Duoneb -) 1 amp NEB RQID [facility] Last Admin: 07/17/17 11:27 Dose: 1 amp Atenolol (Tenormin -) 100 mg PO BID [facility] Last Admin: 07/17/17 09:46 Dose: 100 mg Atorvastatin Calcium (Lipitor -) 80 mg PO HS [facility] Last Admin: 07/16/17 22:07 Dose: 80 mg Bacitracin (Bacitracin -) 1 applic TP DAILY [facility] Last Admin: 07/17/17 09:45 Dose: 1 applic Collagenase (Santyl -) 1 applic TP DAILY [facility] Last Admin: 07/17/17 09:48 Dose: 1 applic Furosemide (Lasix Injection -) 80 mg IVPUSH DAILY [facility] Last Admin: 07/17/17 09:46 Dose: 80 mg Glipizide (Glucotrol Xl -) 10 mg PO BID [facility] Last Admin: 07/17/17 09:46 Dose: 10 mg Heparin Sodium (Porcine) (Heparin -) 5,000 unit IVPUSH PRN PRN PRN Reason: HEPARIN PROTOCOL Heparin Sodium (Porcine) (Heparin -) 1,000 unit IVPUSH PRN PRN PRN Reason: HEPARIN PROTOCOL Piperacillin Sod/Tazobactam (Sod 2.25 gm/ Dextrose) 50 mls @ 100 mls/hr IVPB Q8H-IV [facility] PRN Reason: Protocol Last Admin: 07/17/17 10:15 Dose: 100 mls/hr Heparin Sodium (Porcine) 25, (000 unit/ Sodium Chloride) 500 mls @ 22 mls/hr IV TITR [facility]; 1,100 UNIT/HR PRN Reason: Protocol Vancomycin HCl 1,000 mg/ (Dextrose) 250 mls @ 200 mls/hr IVPB Q24H [facility] PRN Reason: Protocol Insulin Aspart (Novolog Vial Sliding Scale -) 1 vial SQ ACHS [facility] PRN Reason: Protocol Last Admin: 07/17/17 11:05 Dose: 2 units Insulin Detemir (Levemir Vial) 60 units SQ DAILY@07 [facility] Last Admin: 07/17/17 06:29 Dose: 60 units Levothyroxine Sodium (Synthroid -) 100 mcg PO DAILY@0700 [facility] Last Admin: 07/17/17 06:30 Dose: 100 mcg Liraglutide (Victoza -) 1.8 mg SQ DAILY@07 [facility] Last Admin: 07/17/17 06:30 Dose: 1.8 mg Oxycodone HCl (Roxicodone -) 10 mg PO [facility] Last Admin: 07/16/17 22:07 Dose: 10 mg - Objective Vital Signs: Vital Signs Temperature 98.0 F 07/17/17 08:19 Pulse Rate 84 07/17/17 09:45 Respiratory Rate 18 07/17/17 08:19 Blood Pressure 106/60 07/17/17 09:45 O2 Sat by Pulse Oximetry (%) 95 07/17/17 09:00 Constitutional: Yes: No Distress, Calm Cardiovascular: Yes: S1, S2 Respiratory: Yes: Regular, Poor Air Entry (bases) Gastrointestinal: Yes: Normal Bowel Sounds, Soft Musculoskeletal: Yes: WNL Extremities: Yes: Other Wound/Incision: Yes: Dressing Dry and Intact Neurological: Yes: Alert, Oriented Psychiatric: Yes: Alert, Oriented Labs: CBC, BMP 07/16/17 07:45 07/17/17 06:13 INR, PTT INR 2.34 (0.82-1.09) H D 07/14/17 07:50 Assessment/Plan Problem List - Problems (1) Accident due to mechanical fall without injury Code(s): W19.XXXA - UNSPECIFIED FALL, INITIAL ENCOUNTER (2) Atrial fibrillation Code(s): I48.91 - UNSPECIFIED ATRIAL FIBRILLATION Qualifiers: Atrial fibrillation type: chronic Qualified Code(s): I48.2 - Chronic atrial fibrillation (3) CAD (coronary artery disease) Code(s): I25.10 - ATHSCL HEART DISEASE OF [place] CORONARY ARTERY W/O ANG PCTRS (4) CHF (congestive heart failure) Code(s): I50.9 - HEART FAILURE, UNSPECIFIED (5) DVT (deep venous thrombosis) Code(s): I82.409 - ACUTE EMBOLISM AND THOMBOS UNSP DEEP VN UNSP LOWER EXTREMITY Qualifiers: DVT location: lower extremity Affected thrombotic vein of extremity: femoral Chronicity: chronic Laterality: right Qualified Code(s): I82.511 - Chronic embolism and thrombosis of right femoral vein (6) Obesities, morbid Code(s): E66.01 - MORBID (SEVERE) OBESITY DUE TO EXCESS CALORIES (7) Pulmonary embolism Code(s): I26.99 - OTHER PULMONARY EMBOLISM WITHOUT ACUTE COR PULMONALE (8) Venous (peripheral) insufficiency Code(s): I87.2 - VENOUS INSUFFICIENCY (CHRONIC) (PERIPHERAL) (9) Sleep apnea Code(s): G47.30 - SLEEP APNEA, UNSPECIFIED (10) COPD (chronic obstructive pulmonary disease) Code(s): J44.9 - CHRONIC OBSTRUCTIVE PULMONARY DISEASE, UNSPECIFIED (11) Pulmonary HTN Code(s): I27.20 - PULMONARY HYPERTENSION, UNSPECIFIED (12) Dyspnea Code(s): R06.00 - DYSPNEA, UNSPECIFIED (13) Cellulitis Code(s): L03.90 - CELLULITIS, UNSPECIFIED 14) wound infection 15 leukocytosis plan continue abx resp spport elevation of legs wound care rest as per the team
--- NOTE | 2017-07-17 12:27 | PN ---
Physical Exam: SUBJECTIVE: Patient seen and examined at the bedside. and daughter at the bedside. Patient and asking for weight loss options/surgery, possibly bariatric surgery. He feels well today, but has not yet ambulated. States pain is controlled at the moment, at times pain of his legs are severe. OBJECTIVE: coverage for Dr. Hudson Vital Signs Period Temp Pulse Resp BP Sys/Mehta Pulse Ox Last 24 Hr 98.0 F-98.5 F 70-104 18-20 98-133/56-66 95-99 GENERAL: The patient is awake, alert, and fully oriented, in no acute distress. HEAD: Normal with no signs of trauma. EYES: PERRL, extraocular movements intact, sclera anicteric, conjunctiva clear. No ptosis. ENT: Ears normal, nares patent, oropharynx clear without exudates, moist mucous membranes. NECK: Trachea midline, full range of motion, supple. LUNGS: diminished breath sounds anteriorly HEART: Regular rate and rhythm ABDOMEN: obese abdomen EXTREMITIES:bilateral lower ext cellulitis, wrapped, dressing is stained but intact NEUROLOGICAL: Normal speech, gait not observed. PSYCH: Normal mood, normal affect. Laboratory Results - last 24 hr 07/16/17 07/16/17 07/17/17 16:59 22:03 06:13 Sodium Potassium Chloride Carbon Dioxide Anion Gap BUN Creatinine POC Glucometer 196 232 Random Glucose Calcium Random Vancomycin 7.279 07/17/17 07/17/17 07/17/17 06:13 06:27 09:42 Sodium 139 Potassium 5.4 H Chloride 105 Carbon Dioxide 23 Anion Gap 11 BUN 112 H* Creatinine 4.1 H POC Glucometer 199 239 Random Glucose 170 H Calcium 8.5 Random Vancomycin Active Medications Generic Name Dose Route Start Last Admin Trade Name Freq PRN Reason Stop Dose Admin Acetaminophen 650 mg 07/12/17 08:03 07/16/17 05:48 Tylenol - PO 650 mg Q8H PRN Administration FEVER Acetaminophen 650 mg 07/12/17 22:00 07/16/17 22:08 Tylenol - PO 650 mg HS [facility] Administration Albuterol/Ipratropium 1 amp 07/12/17 16:00 07/17/17 11:27 Duoneb - NEB 1 amp RQID [facility] Administration Atenolol 100 mg 07/12/17 10:00 07/17/17 09:46 Tenormin - PO 100 mg BID [facility] Administration Atorvastatin Calcium 80 mg 07/12/17 22:00 07/16/17 22:07 Lipitor - PO 80 mg HS [facility] Administration Bacitracin 1 applic 07/14/17 17:15 07/17/17 09:45 Bacitracin - TP 1 applic DAILY [facility] Administration Collagenase 1 applic 07/12/17 10:00 07/17/17 09:48 Santyl - TP 1 applic DAILY [facility] Administration Furosemide 80 mg 07/16/17 11:00 07/17/17 09:46 Lasix Injection - IVPUSH 80 mg DAILY [facility] Administration Glipizide 10 mg 07/12/17 10:00 07/17/17 09:46 Glucotrol Xl - PO 10 mg BID [facility] Administration Heparin Sodium (Porcine) 5,000 unit 07/17/17 12:00 Heparin - IVPUSH PRN PRN HEPARIN PROTOCOL Heparin Sodium (Porcine) 1,000 unit 07/17/17 12:00 Heparin - IVPUSH PRN PRN HEPARIN PROTOCOL Piperacillin Sod/Tazobactam 50 mls @ 100 mls/hr 07/13/17 18:00 07/17/17 10:15 Sod 2.25 gm/ Dextrose IVPB 100 mls/hr Q8H-IV [facility] Administration Protocol Heparin Sodium (Porcine) 25, 500 mls @ 22 mls/hr 07/18/17 09:00 000 unit/ Sodium Chloride IV TITR [facility] Protocol 1,100 UNIT/HR Vancomycin HCl 1,000 mg/ 250 mls @ 200 mls/hr 07/17/17 15:00 Dextrose IVPB Q24H [facility] Protocol Insulin Aspart 1 vial 07/14/17 11:15 07/17/17 11:05 Novolog Vial Sliding Scale - SQ 2 units ACHS [facility] Administration Protocol Insulin Detemir 60 units 07/15/17 08:45 07/17/17 06:29 Levemir Vial SQ 60 units DAILY@0700 [facility] Administration Levothyroxine Sodium 100 mcg 07/12/17 07:00 07/17/17 06:30 Synthroid - PO 100 mcg DAILY@0700 [facility] Administration Liraglutide 1.8 mg 07/13/17 07:00 07/17/17 06:30 Victoza - SQ 1.8 mg DAILY@0700 [facility] Administration Oxycodone HCl 10 mg 07/12/17 22:00 07/16/17 22:07 Roxicodone - PO 10 mg HS [facility] Administration ASSESSMENT/PLAN: Patient is a 61 year old male with a past medical history of diastolic CHF, CAD , [place] x 2, atrial fibrillation (on Xarelto), CKD stage 3, diabetes melllitus II, DVT, Chronic RLE Ulcers (with treatment at clinic), gout, ASHLEY and morbid obesity. He presented to the ED on 07/12/2017 after a fall (on his stomach) with associated chills and weakness. Patient reports fall was after his lower extremities became weak. Card: Diastolic CHF On Lasix 80mg daily Monitor intake and output Monitor renal function Daily weights CAD/STEMI in 2016 with drug eluding stents @ [place] On Atenolol On Lipitor Hypertension, chronic Monitor BP Atrial fibrillation, chronic Was on Xarelto but stopped by staff nurse midwife and placed on heparin drip d/t GFR Vascular: Stasis ulcers, edema. Cellulitis of Right Lower Leg Chronic wound right Ankle/dobbs Wound care ongoing with Santyl Elevate Lower ext On Zosyn and Vanco ID following Endocrine: Diabetes Mellitus 2 On Victoza, diabetic diet Monitor BGMs Renal: CKD stage 3, chronic Renal dose meds Morbid obesity. ASHLEY On Supplemental oxygen Followed by pulm Patient asking about weight loss surgery and consult with bariatric surgeon F.E.N. Fluids: tolerating PO Electrolytes: monitor daily Nutrition: diabetic diet. Prophy: DVT: on heparin drip GI: Protonix Disposition: full code Visit type - Emergency Visit Emergency Visit: Yes ED Registration Date: 07/12/17 Care time: The patient presented to the Emergency Department on the above date and was hospitalized for further evaluation of their emergent condition. - New Patient This patient is new to me today: Yes Date on this admission: 07/17/17 - Critical Care Critical Care patient: No - Discharge Referral Referred to [facility] No
[2017-07-17] MEDS: ACETAMINOPHEN 325 MG TABLET (FP) PO PRN (14:13)
[2017-07-17] MEDS: VANCOMYCIN 1,000 MG in DEXTROSE 5%-WATER - 250 ML IVPB SCH (14:26)
--- NOTE | 2017-07-17 14:39 | PN ---
Progress Note, Physician History of Present Illness: Pt seen and examined at bedside. He is awake and alert. He feels that his lower ext edema is a little better but not significantly improved. - Current Medication List Current Medications: Active Medications Acetaminophen (Tylenol -) 650 mg PO Q8H PRN PRN Reason: FEVER Last Admin: 07/17/17 14:13 Dose: 650 mg Acetaminophen (Tylenol -) 650 mg PO HS [facility] Last Admin: 07/16/17 22:08 Dose: 650 mg Albuterol/Ipratropium (Duoneb -) 1 amp NEB RQID NEIL Last Admin: 07/17/17 11:27 Dose: 1 amp Atenolol (Tenormin -) 100 mg PO BID NEIL Last Admin: 07/17/17 09:46 Dose: 100 mg Atorvastatin Calcium (Lipitor -) 80 mg PO HS [facility] Last Admin: 07/16/17 22:07 Dose: 80 mg Bacitracin (Bacitracin -) 1 applic TP DAILY [facility] Last Admin: 07/17/17 09:45 Dose: 1 applic Collagenase (Santyl -) 1 applic TP DAILY [facility] Last Admin: 07/17/17 09:48 Dose: 1 applic Furosemide (Lasix Injection -) 80 mg IVPUSH DAILY [facility] Last Admin: 07/17/17 09:46 Dose: 80 mg Glipizide (Glucotrol Xl -) 10 mg PO BID [facility] Last Admin: 07/17/17 09:46 Dose: 10 mg Heparin Sodium (Porcine) (Heparin -) 5,000 unit IVPUSH PRN PRN PRN Reason: HEPARIN PROTOCOL Heparin Sodium (Porcine) (Heparin -) 1,000 unit IVPUSH PRN PRN PRN Reason: HEPARIN PROTOCOL Piperacillin Sod/Tazobactam (Sod 2.25 gm/ Dextrose) 50 mls @ 100 mls/hr IVPB Q8H-IV NEIL PRN Reason: Protocol Last Admin: 07/17/17 10:15 Dose: 100 mls/hr Heparin Sodium (Porcine) 25, (000 unit/ Sodium Chloride) 500 mls @ 22 mls/hr IV TITR NEIL; 1,100 UNIT/HR PRN Reason: Protocol Vancomycin HCl 1,000 mg/ (Dextrose) 250 mls @ 200 mls/hr IVPB Q24H NEIL PRN Reason: Protocol Last Admin: 07/17/17 14:26 Dose: 200 mls/hr Insulin Aspart (Novolog Vial Sliding Scale -) 1 vial SQ [facility] PRN Reason: Protocol Last Admin: 07/17/17 11:05 Dose: 2 units Insulin Detemir (Levemir Vial) 60 units SQ DAILY@0700 [facility] Last Admin: 07/17/17 06:29 Dose: 60 units Levothyroxine Sodium (Synthroid -) 100 mcg PO DAILY@0700 [facility] Last Admin: 07/17/17 06:30 Dose: 100 mcg Liraglutide (Victoza -) 1.8 mg SQ DAILY@0700 [facility] Last Admin: 07/17/17 06:30 Dose: 1.8 mg Oxycodone HCl (Roxicodone -) 10 mg PO [facility] Last Admin: 07/16/17 22:07 Dose: 10 mg - Objective Vital Signs: Vital Signs Temperature 98.0 F 07/17/17 08:19 Pulse Rate 84 07/17/17 09:45 Respiratory Rate 18 07/17/17 08:19 Blood Pressure 106/60 07/17/17 09:45 O2 Sat by Pulse Oximetry (%) 95 07/17/17 09:00 Constitutional: Yes: Calm Eyes: Yes: Conjunctiva Clear HENT: Yes: Atraumatic Neck: Yes: Supple Cardiovascular: Yes: S1, S2 Respiratory: Yes: Rhonchi Gastrointestinal: Yes: Soft, Abdomen, Obese Genitourinary: Yes: WNL Musculoskeletal: Yes: WNL Edema: Yes Edema: LLE: 3+, RLE: 3+ Integumentary: Yes: Venous Stasis Changes, Other (legs are oozing) Neurological: Yes: Oriented Psychiatric: Yes: Oriented Labs: CBC, BMP 07/16/17 07:45 07/17/17 06:13 INR, PTT INR 2.34 (0.82-1.09) H D 07/14/17 07:50 Problem List - Problems (1) CKD (chronic kidney disease) Code(s): N18.9 - CHRONIC KIDNEY DISEASE, UNSPECIFIED (2) Accident due to mechanical fall without injury Code(s): W19.XXXA - UNSPECIFIED FALL, INITIAL ENCOUNTER (3) Acute renal failure (ARF) Code(s): N17.9 - ACUTE KIDNEY FAILURE, UNSPECIFIED Assessment/Plan Current Medications Generic Name Dose Route Start Last Admin Trade Name Freq PRN Reason Stop Dose Admin Acetaminophen 650 mg 07/12/17 08:03 07/17/17 14:13 Tylenol - PO 650 mg Q8H PRN Administration FEVER Acetaminophen 650 mg 07/12/17 22:00 07/16/17 22:08 Tylenol - PO 650 mg HS NEIL Administration Albuterol/Ipratropium 1 amp 07/12/17 16:00 07/17/17 11:27 Duoneb - NEB 1 amp RQID NEIL Administration Atenolol 100 mg 07/12/17 10:00 07/17/17 09:46 Tenormin - PO 100 mg BID NEIL Administration Atorvastatin Calcium 80 mg 07/12/17 22:00 07/16/17 22:07 Lipitor - PO 80 mg HS NEIL Administration Bacitracin 1 applic 07/14/17 17:15 07/17/17 09:45 Bacitracin - TP 1 applic DAILY NEIL Administration Collagenase 1 applic 07/12/17 10:00 07/17/17 09:48 Santyl - TP 1 applic DAILY NEIL Administration Furosemide 80 mg 07/16/17 11:00 07/17/17 09:46 Lasix Injection - IVPUSH 80 mg DAILY NEIL Administration Glipizide 10 mg 07/12/17 10:00 07/17/17 09:46 Glucotrol Xl - PO 10 mg BID NEIL Administration Heparin Sodium (Porcine) 5,000 unit 07/17/17 12:00 Heparin - IVPUSH PRN PRN HEPARIN PROTOCOL Heparin Sodium (Porcine) 1,000 unit 07/17/17 12:00 Heparin - IVPUSH PRN PRN HEPARIN PROTOCOL Piperacillin Sod/Tazobactam 50 mls @ 100 mls/hr 07/13/17 18:00 07/17/17 10:15 Sod 2.25 gm/ Dextrose IVPB 100 mls/hr Q8H-IV NEIL Administration Protocol Heparin Sodium (Porcine) 25, 500 mls @ 22 mls/hr 07/18/17 09:00 000 unit/ Sodium Chloride IV TITR NEIL Protocol 1,100 UNIT/HR Vancomycin HCl 1,000 mg/ 250 mls @ 200 mls/hr 07/17/17 15:00 07/17/17 14:26 Dextrose IVPB 200 mls/hr Q24H NEIL Administration Protocol Insulin Aspart 1 vial 07/14/17 11:15 07/17/17 11:05 Novolog Vial Sliding Scale - SQ 2 units ACHS NEIL Administration Protocol Insulin Detemir 60 units 07/15/17 08:45 07/17/17 06:29 Levemir Vial SQ 60 units DAILY@0700 NEIL Administration Levothyroxine Sodium 100 mcg 07/12/17 07:00 07/17/17 06:30 Synthroid - PO 100 mcg DAILY@0700 NEIL Administration Liraglutide 1.8 mg 07/13/17 07:00 07/17/17 06:30 Victoza - SQ 1.8 mg DAILY@0700 NEIL Administration Oxycodone HCl 10 mg 07/12/17 22:00 07/16/17 22:07 Roxicodone - PO 10 mg HS NEIL Administration Impression 1. CKD 2. KRUNAL 3. volume overload 4. obesity 5. CAD 6. cellulitis 7. s/p fall 8. a-fib 9. DM 10. hypothyroidism 11. HLD 12. CHF Plan - creatinine is starting to improve, but not significantly - cont with IV lasix - repeat labs in am - pt being switched to heparin - low potassium diet, lasix should help - keep jasmyne on hold - monitor vanco levels - discussed possibility of HD again today - repeat labs in am - will follow Dr Quiroz
[2017-07-17] MEDS: oxyCODONE HCL 5 MG TABLET PO SCH (21:25)
[2017-07-17] MEDS: ACETAMINOPHEN 325 MG TABLET (FP) PO SCH (21:25)
[2017-07-17] MEDS: ATORVASTATIN CA 80 MG TABLET (FP) PO SCH (21:25)
[2017-07-18] MEDS ORDERED: PIPERACILLIN/TAZOBACTAM 2.25 GM VIAL IVPB ONE ×3 (02:32→16:31)
[2017-07-18] MEDS ORDERED: DEXTROSE 5%-WATER - 50 ML IVPB ONE ×2 (02:34→09:29)
[2017-07-18] MEDS: PIPERACILLIN/TAZOB 2.25 GM 2.25 GM in DEXTROSE 5%-WATER - 50 ML IVPB SCH ×3 (02:36→17:50)
[2017-07-18] MEDS: LEVOTHYROXINE NA 100 MCG TABLET (FP) PO SCH (06:30)
[2017-07-18] MEDS: LIRAGLUTIDE 0.6 MG/0.1 ML PEN.INJCTR SQ SCH (06:31)
[2017-07-18] MEDS: INSULIN (LEVEMIR) 100 UNITS/ML UNITS SQ SCH (06:32)
[2017-07-18] MEDS: INSULIN SLIDING SCALE (NOVOLOG) 1 VIAL SQ SCH ×4 (06:32→21:46)
[2017-07-18] MEDS ORDERED: INSULIN (NOVOLOG) ASPART 100 UNITS/ML 10ML VIAL ONE ×3 (06:39→21:36)
[2017-07-18] MEDS: ACETAMINOPHEN 325 MG TABLET (FP) PO PRN (07:33)
[2017-07-18 07:39] LABS: BASO % 0.3 % (0-2.0); EOS % 1.9 % (0-4.5); HEMATOCRIT 27.8 % (35.4-49); HEMOGLOBIN 9.2 GM/dL (11.7-16.9); MCH 31.8 pg (25.7-33.7); MCHC 32.9 g/dl (32.0-35.9); MEAN CELL VOLUME 96.6 fl (80-96); MEAN PLT VOLUME 8.3 fl (7.5-11.1); MONO % 5.7 % (3.8-10.2); NEUT % 83.1 % (42.8-82.8); PLATELET COUNT 167 K/MM3 (134-434); RBC 2.88 M/mm3 (4.00-5.60); RDW 16.6 % (11.9-15.9); WHITE BLOOD COUNT 9.8 K/mm3 (4.0-10.0)
[2017-07-18 07:50] LABS: INR 1.75 (0.82-1.09); PROTHROMBIN TIME (PATIENT) 19.8 SEC (9.98-11.88)
[2017-07-18 07:53] LABS: ACTIVATED PTT 30.7 SECONDS (26.9-34.4)
[2017-07-18 08:18] LABS: ANION GAP 9 (8-16); CALCIUM 8.3 mg/dL (8.5-10.1); CHLORIDE 106 mmol/L (98-107); CO2 23 mmol/L (21-32); CREATININE 3.9 mg/dL (0.7-1.3); GLUCOSE,RANDOM 154 mg/dL (74-106); POTASSIUM 5.2 mmol/L (3.5-5.1); SODIUM 138 mmol/L (136-145)
[2017-07-18 08:28] LABS: BLOOD UREA NITROGEN 116 mg/dL (7-18)
--- NOTE | 2017-07-18 09:01 | PN ---
Progress Note, Physician - Current Medication List Current Medications: Active Medications Acetaminophen (Tylenol -) 650 mg PO Q8H PRN PRN Reason: FEVER Last Admin: 07/18/17 07:33 Dose: 650 mg Acetaminophen (Tylenol -) [address] [facility] Last Admin: 07/17/17 21:25 Dose: 650 mg Atenolol (Tenormin -) 100 mg PO BID NEIL Last Admin: 07/17/17 21:26 Dose: 100 mg Atorvastatin Calcium (Lipitor -) 80 mg PO HS NEIL Last Admin: 07/17/17 21:25 Dose: 80 mg Bacitracin (Bacitracin -) 1 applic TP DAILY NEIL Last Admin: 07/17/17 09:45 Dose: 1 applic Collagenase (Santyl -) [address] [facility] Last Admin: 07/17/17 09:48 Dose: 1 applic Furosemide (Lasix Injection -) [address] [facility] Last Admin: 07/17/17 09:46 Dose: 80 mg Glipizide (Glucotrol Xl -) [address] [facility] Last Admin: 07/17/17 21:25 Dose: 10 mg Heparin Sodium (Porcine) (Heparin -) 5,000 unit IVPUSH PRN PRN PRN Reason: HEPARIN PROTOCOL Heparin Sodium (Porcine) (Heparin -) 1,000 unit IVPUSH PRN PRN PRN Reason: HEPARIN PROTOCOL Piperacillin Sod/Tazobactam (Sod 2.25 gm/ Dextrose) 50 mls @ 100 mls/hr IVPB Q8H-IV NEIL PRN Reason: Protocol Last Admin: 07/18/17 02:36 Dose: 100 mls/hr Heparin Sodium (Porcine) 25, (000 unit/ Sodium Chloride) 500 mls @ 22 mls/hr IV TITR NEIL; 1,100 UNIT/HR PRN Reason: Protocol Vancomycin HCl 1,000 mg/ (Dextrose) 250 mls @ 200 mls/hr IVPB Q24H NEIL PRN Reason: Protocol Last Admin: 07/17/17 14:26 Dose: 200 mls/hr Insulin Aspart (Novolog Vial Sliding Scale -) 1 vial SQ ACHS NEIL PRN Reason: Protocol Last Admin: 07/18/17 06:32 Dose: Not Given Insulin Detemir (Levemir Vial) 60 units SQ DAILY@0700 [facility] Last Admin: 07/18/17 06:32 Dose: 60 units Levothyroxine Sodium (Synthroid -) 100 mcg PO DAILY@0700 [facility] Last Admin: 07/18/17 06:30 Dose: 100 mcg Liraglutide (Victoza -) 1.8 mg SQ DAILY@0700 [facility] Last Admin: 07/18/17 06:31 Dose: 1.8 mg Oxycodone HCl (Roxicodone -) [address] [facility] Last Admin: 07/17/17 21:25 Dose: 10 mg - Objective Vital Signs: Vital Signs Temperature 98.0 F 07/18/17 08:31 Pulse Rate 76 07/18/17 08:31 Respiratory Rate 16 07/18/17 08:31 Blood Pressure 108/58 07/18/17 08:31 O2 Sat by Pulse Oximetry (%) 97 07/17/17 22:00 Constitutional: Yes: Obese Eyes: Yes: WNL, Conjunctiva Clear, EOM Intact HENT: Yes: WNL, Atraumatic, Normocephalic Neck: Yes: WNL, Supple, Trachea Midline Cardiovascular: Yes: Pulse Irregular, S1, S2 Respiratory: Yes: WNL, Regular, CTA Bilaterally Gastrointestinal: Yes: WNL, Normal Bowel Sounds Genitourinary: Yes: WNL Musculoskeletal: Yes: WNL Extremities: Yes: WNL Edema: Yes Integumentary: Yes: WNL Neurological: Yes: WNL, Alert, Oriented ...Motor Strength: WNL Psychiatric: Yes: WNL Labs: CBC, BMP 07/18/17 07:00 07/18/17 07:00 INR, PTT INR 1.75 (0.82-1.09) H 07/18/17 07:00 Assessment/Plan IMP: Fall ARF, acute on chronic RLE cellulitis Morbid obesity PHTN Chronic AF, on Xarelto, currently rate controlled CAD s/p PCI Acute on chronic diastolic CHF REC: Lasix and UVALDO-I were held for several days due to rising BUN and creatinine. Now with weight gain and development of clinical signs of volume overload, mild. Lasix resumed, nephrology following. Continue to hold UVALDO-I. off xarelto IV heparine
[2017-07-18] MEDS: HEPARIN - 25,000 UNIT in SODIUM CHLORIDE 495 ML IV SCH ×2 (09:34→16:54)
[2017-07-18] MEDS: FUROSEMIDE 40 MG/4 ML INJECTABLE VIAL IVPUSH SCH (09:35)
[2017-07-18] MEDS: glipiZIDE-XL 10 MG TAB.ER.24 (FP) PO SCH ×2 (09:35→21:40)
[2017-07-18] MEDS: BACITRACIN 15 GM TUBE TOPICAL OINTMENT TP SCH (09:35)
[2017-07-18] MEDS: ATENOLOL 50 MG TABLET (FP) PO SCH ×2 (09:36→21:38)
[2017-07-18] MEDS: COLLAGENASE CLOSTRIDIUM HIST. 30 GRAMS TUBE TP SCH (09:38)
--- NOTE | 2017-07-18 11:54 | PN ---
Progress Note (short form) - Note Progress Note: PULMONARY Using his home BiPAP. Sitting up in bed complaining of bilateral lower ext pain VSS/afebrile Gen: NAD at rest Heart: RRR Lung: distant breath sounds Abd: soft, nontender Ext: chronic changes, dressings with drainage labs/notes/images reviewed A/P Cellulitis Morbid Obesity ASHLEY Atrial Fibrillation CAD h/o DVT/PE CKD - continue antibiotics - BiPAP at night 09/10 - inhaled bronchodilators - O2 to keep SpO2 >90% - continue anticoagulation - consider liberalizing pain meds Jean Marie JACOBSEN MD
--- NOTE | 2017-07-18 11:59 | PN ---
Progress Note, Physician History of Present Illness: patients left leg looks swollen more pain in the leg rt leg patient doing well - Current Medication List Current Medications: Active Medications Acetaminophen (Tylenol -) 650 mg PO Q8H PRN PRN Reason: FEVER Last Admin: 07/18/17 07:33 Dose: 650 mg Acetaminophen (Tylenol -) 650 mg PO HS [facility] Last Admin: 07/17/17 21:25 Dose: 650 mg Atenolol (Tenormin -) 100 mg PO BID NEIL Last Admin: 07/18/17 09:36 Dose: 100 mg Atorvastatin Calcium (Lipitor -) 80 mg PO HS NEIL Last Admin: 07/17/17 21:25 Dose: 80 mg Bacitracin (Bacitracin -) 1 applic TP DAILY [facility] Last Admin: 07/18/17 09:35 Dose: 1 applic Collagenase (Santyl -) 1 applic TP DAILY [facility] Last Admin: 07/18/17 09:38 Dose: 1 applic Furosemide (Lasix Injection -) 80 mg IVPUSH DAILY [facility] Last Admin: 07/18/17 09:35 Dose: 80 mg Glipizide (Glucotrol Xl -) 10 mg PO BID [facility] Last Admin: 07/18/17 09:35 Dose: 10 mg Heparin Sodium (Porcine) (Heparin -) 5,000 unit IVPUSH PRN PRN PRN Reason: HEPARIN PROTOCOL Heparin Sodium (Porcine) (Heparin -) 1,000 unit IVPUSH PRN PRN PRN Reason: HEPARIN PROTOCOL Piperacillin Sod/Tazobactam (Sod 2.25 gm/ Dextrose) 50 mls @ 100 mls/hr IVPB Q8H-IV NEIL PRN Reason: Protocol Last Admin: 07/18/17 09:36 Dose: 100 mls/hr Heparin Sodium (Porcine) 25, (000 unit/ Sodium Chloride) 500 mls @ 22 mls/hr IV TITR NEIL; 1,100 UNIT/HR PRN Reason: Protocol Last Admin: 07/18/17 09:34 Dose: 1,100 unit/hr, 22 mls/hr Vancomycin HCl 1,000 mg/ (Dextrose) 250 mls @ 200 mls/hr IVPB Q24H NEIL PRN Reason: Protocol Last Admin: 07/17/17 14:26 Dose: 200 mls/hr Insulin Aspart (Novolog Vial Sliding Scale -) 1 vial SQ ACHS NEIL PRN Reason: Protocol Last Admin: 07/18/17 11:06 Dose: 2 units Insulin Detemir (Levemir Vial) 60 units SQ DAILY@07 [facility] Last Admin: 07/18/17 06:32 Dose: 60 units Levothyroxine Sodium (Synthroid -) 100 mcg PO DAILY@0700 [facility] Last Admin: 07/18/17 06:30 Dose: 100 mcg Liraglutide (Victoza -) 1.8 mg SQ DAILY@07 [facility] Last Admin: 07/18/17 06:31 Dose: 1.8 mg Oxycodone HCl (Roxicodone -) 10 mg PO HS [facility] Last Admin: 07/17/17 21:25 Dose: 10 mg - Objective Vital Signs: Vital Signs Temperature 98.0 F 07/18/17 08:31 Pulse Rate 76 07/18/17 08:31 Respiratory Rate 16 07/18/17 08:31 Blood Pressure 108/58 07/18/17 08:31 O2 Sat by Pulse Oximetry (%) 94 L 07/18/17 08:59 Constitutional: Yes: No Distress, Calm, Obese (morbid) Neck: Yes: Supple Cardiovascular: Yes: S1, S2 Respiratory: Yes: Regular, On BiPap, Poor Air Entry Gastrointestinal: Yes: Soft Musculoskeletal: Yes: Other Extremities: Yes: Erythema (left foot with increased pain adn swelling and discoloration) Integumentary: Yes: Erythema, Other Wound/Incision: Yes: Dressing Dry and Intact Neurological: Yes: Alert, Oriented Psychiatric: Yes: Alert, Oriented Labs: CBC, BMP 07/18/17 07:00 07/18/17 07:00 INR, PTT INR 1.75 (0.82-1.09) H 07/18/17 07:00 Assessment/Plan Problem List - Problems (1) Accident due to mechanical fall without injury Code(s): W19.XXXA - UNSPECIFIED FALL, INITIAL ENCOUNTER (2) Atrial fibrillation Code(s): I48.91 - UNSPECIFIED ATRIAL FIBRILLATION Qualifiers: Atrial fibrillation type: chronic Qualified Code(s): I48.2 - Chronic atrial fibrillation (3) CAD (coronary artery disease) Code(s): I25.10 - ATHSCL HEART DISEASE OF [place] CORONARY ARTERY W/O ANG PCTRS (4) CHF (congestive heart failure) Code(s): I50.9 - HEART FAILURE, UNSPECIFIED (5) DVT (deep venous thrombosis) Code(s): I82.409 - ACUTE EMBOLISM AND THOMBOS UNSP DEEP VN UNSP LOWER EXTREMITY Qualifiers: DVT location: lower extremity Affected thrombotic vein of extremity: femoral Chronicity: chronic Laterality: right Qualified Code(s): I82.511 - Chronic embolism and thrombosis of right femoral vein (6) Obesities, morbid Code(s): E66.01 - MORBID (SEVERE) OBESITY DUE TO EXCESS CALORIES (7) Pulmonary embolism Code(s): I26.99 - OTHER PULMONARY EMBOLISM WITHOUT ACUTE COR PULMONALE (8) Venous (peripheral) insufficiency Code(s): I87.2 - VENOUS INSUFFICIENCY (CHRONIC) (PERIPHERAL) (9) Sleep apnea Code(s): G47.30 - SLEEP APNEA, UNSPECIFIED (10) COPD (chronic obstructive pulmonary disease) Code(s): J44.9 - CHRONIC OBSTRUCTIVE PULMONARY DISEASE, UNSPECIFIED (11) Pulmonary HTN Code(s): I27.20 - PULMONARY HYPERTENSION, UNSPECIFIED (12) Dyspnea Code(s): R06.00 - DYSPNEA, UNSPECIFIED (13) Cellulitis Code(s): L03.90 - CELLULITIS, UNSPECIFIED 14) wound infection 15 leukocytosis plan continue abx will order a stat ct scan if patient cannot get a ct then we will get an xray vascular to evaluate the patient rest as per primary
[2017-07-18] MEDS: oxyCODONE HCL 5 MG TABLET PO PRN (14:10)
--- NOTE | 2017-07-18 15:09 | PN ---
Physical Exam: SUBJECTIVE: Patient seen and examined at the bedside. Patient reports increased pain on left lower leg. OBJECTIVE: left foot blood fluid filled blister alongside 5th metatarsal, foot elevated small fluid filled blister on anterior left ankle Foot xray: old trauma, soft tissue swelling Lft hip xray: no fracture Vital Signs Period Temp Pulse Resp BP Sys/Mehta Pulse Ox Last 24 Hr 97.8 F-98.6 F 76-89 16-20 108-130/58-76 94-97 GENERAL: The patient is awake, alert, and fully oriented, in no acute distress. HEAD: Normal with no signs of trauma. EYES: PERRL, extraocular movements intact, sclera anicteric, conjunctiva clear. No ptosis. ENT: Ears normal, nares patent, oropharynx clear without exudates, moist mucous membranes. NECK: Trachea midline, full range of motion, supple. LUNGS: diminished breath sounds anteriorly HEART: Regular rate and rhythm ABDOMEN: obese abdomen EXTREMITIES:bilateral lower ext cellulitis, wrapped, dressing is stained but intact-left foot with blood fluid blister alongside 5th metatarsal NEUROLOGICAL: Normal speech, gait not observed. PSYCH: Normal mood, normal affect. Laboratory Results - last 24 hr 07/15/17 07/17/17 07/17/17 18:15 16:39 21:23 WBC RBC Hgb Hct MCV MCH MCHC RDW Plt Count MPV Neutrophils % Lymphocytes % Monocytes % Eosinophils % Basophils % PT with INR INR PTT (Actin FS) Sodium Potassium Chloride Carbon Dioxide Anion Gap BUN Creatinine POC Glucometer 245 231 Random Glucose Calcium Urine Eosinophils None seen 07/18/17 07/18/17 07/18/17 05:57 07:00 07:00 WBC 9.8 RBC 2.88 L Hgb 9.2 L Hct 27.8 L MCV 96.6 H MCH 31.8 MCHC 32.9 RDW 16.6 H Plt Count 167 MPV 8.3 Neutrophils % 83.1 H Lymphocytes % 9.0 Monocytes % 5.7 Eosinophils % 1.9 Basophils % 0.3 PT with INR 19.80 H INR 1.75 H PTT (Actin FS) 30.7 Sodium Potassium Chloride Carbon Dioxide Anion Gap BUN Creatinine POC Glucometer 170 Random Glucose Calcium Urine Eosinophils 07/18/17 07/18/17 07:00 09:50 WBC RBC Hgb Hct MCV MCH MCHC RDW Plt Count MPV Neutrophils % Lymphocytes % Monocytes % Eosinophils % Basophils % PT with INR INR PTT (Actin FS) Sodium 138 Potassium 5.2 H Chloride 106 Carbon Dioxide 23 Anion Gap 9 BUN 116 H* Creatinine 3.9 H POC Glucometer 215 Random Glucose 154 H Calcium 8.3 L Urine Eosinophils Active Medications Generic Name Dose Route Start Last Admin Trade Name Freq PRN Reason Stop Dose Admin Acetaminophen 650 mg 07/12/17 08:03 07/18/17 07:33 Tylenol - PO 650 mg Q8H PRN Administration FEVER Acetaminophen 650 mg 07/12/17 22:00 07/17/17 21:25 Tylenol - PO 650 mg HS NEIL Administration Atenolol 100 mg 07/12/17 10:00 07/18/17 09:36 Tenormin - PO 100 mg BID NEIL Administration Atorvastatin Calcium 80 mg 07/12/17 22:00 07/17/17 21:25 Lipitor - PO 80 mg HS NEIL Administration Bacitracin 1 applic 07/14/17 17:15 07/18/17 09:35 Bacitracin - TP 1 applic DAILY NEIL Administration Collagenase 1 applic 07/12/17 10:00 07/18/17 09:38 Santyl - TP 1 applic DAILY NEIL Administration Furosemide 80 mg 07/16/17 11:00 07/18/17 09:35 Lasix Injection - IVPUSH 80 mg DAILY NEIL Administration Glipizide 10 mg 07/12/17 10:00 07/18/17 09:35 Glucotrol Xl - PO 10 mg BID NEIL Administration Heparin Sodium (Porcine) 5,000 unit 07/17/17 12:00 Heparin - IVPUSH PRN PRN HEPARIN PROTOCOL Heparin Sodium (Porcine) 1,000 unit 07/17/17 12:00 Heparin - IVPUSH PRN PRN HEPARIN PROTOCOL Piperacillin Sod/Tazobactam 50 mls @ 100 mls/hr 07/13/17 18:00 07/18/17 09:36 Sod 2.25 gm/ Dextrose IVPB 100 mls/hr Q8H-IV NEIL Administration Protocol Heparin Sodium (Porcine) 25, 500 mls @ 22 mls/hr 07/18/17 09:00 07/18/17 09: 34 000 unit/ Sodium Chloride IV 1,100 unit/hr TITR NELI 22 mls/hr Protocol Administration 1,100 UNIT/HR Vancomycin HCl 1,000 mg/ 250 mls @ 200 mls/hr 07/17/17 15:00 07/17/17 14:26 Dextrose IVPB 200 mls/hr Q24H NEIL Administration Protocol Insulin Aspart 1 vial 07/14/17 11:15 07/18/17 11:06 Novolog Vial Sliding Scale - SQ 2 units ACHS NEIL Administration Protocol Insulin Detemir 60 units 07/15/17 08:45 07/18/17 06:32 Levemir Vial SQ 60 units DAILY@0700 NEIL Administration Levothyroxine Sodium 100 mcg 07/12/17 07:00 07/18/17 06:30 Synthroid - PO 100 mcg DAILY@0700 NEIL Administration Liraglutide 1.8 mg 07/13/17 07:00 07/18/17 06:31 Victoza - SQ 1.8 mg DAILY@0700 NEIL Administration Oxycodone HCl 10 mg 07/12/17 22:00 07/17/17 21:25 Roxicodone - PO 10 mg HS NEIL Administration Oxycodone HCl 10 mg 07/18/17 13:43 07/18/17 14:10 Roxicodone - PO 10 mg Q4H PRN Administration PAIN LEVEL 7 - 10 ASSESSMENT/PLAN: Patient is a 61 year old male with a past medical history of diastolic CHF, CAD , [place] x 2, atrial fibrillation (on Xarelto), CKD stage 3, diabetes melllitus II, DVT, Chronic RLE Ulcers (with treatment at clinic), gout, ASHLEY and morbid obesity. He presented to the ED on 07/12/2017 after a fall (on his stomach) with associated chills and weakness. Patient reports fall was after his lower extremities became weak. Card: Diastolic CHF On Lasix 80mg Monitor intake and output Monitor renal function Daily weights Cardiology following CAD/STEMI in 2016 with drug eluding stents @ [place] On Atenolol On Lipitor Hypertension, chronic Monitor BP Atrial fibrillation, chronic Was on Xarelto but stopped by avionics system engineer and placed on heparin drip d/t GFR Vascular: Stasis ulcers, edema. Cellulitis of Right Lower Leg Chronic wound right Ankle/dobbs Wound care ongoing with Santyl Elevate Lower ext On Zosyn and Vanco ID following Left foot with new blood blister, blister formation on left anterior foot Foot elevated in bed Vascular to see patient Foot xray noted, hip xray-left, no fracture seen Endocrine: Diabetes Mellitus 2 On Victoza, levemir, diabetic diet Monitor BGMs Renal: CKD stage 3, chronic Renal dose meds Morbid obesity. ASHLEY On Supplemental oxygen Followed by pulm Patient asking about weight loss surgery and consult with bariatric surgeon Mica Fluids: tolerating PO Electrolytes: monitor daily Nutrition: diabetic diet. Prophy: DVT: on heparin drip per protocol GI: Protonix Disposition: full code Visit type - Emergency Visit Emergency Visit: Yes ED Registration Date: 07/12/17 Care time: The patient presented to the Emergency Department on the above date and was hospitalized for further evaluation of their emergent condition. - New Patient This patient is new to me today: No - Critical Care Critical Care patient: No - Discharge Referral Referred to [facility] Med [facility] No
[2017-07-18] MEDS: VANCOMYCIN 1,000 MG in DEXTROSE 5%-WATER - 250 ML IVPB SCH (15:24)
[2017-07-18] MEDS ORDERED: FUROSEMIDE 40 MG/4 ML INJECTABLE VIAL IVPUSH ONE (16:30)
--- NOTE | 2017-07-18 16:30 | PN ---
Progress Note, Physician History of Present Illness: Pt seen and examined at bedside. He complains of lower ext edema and he does get SOB with minimal exertion. - Current Medication List Current Medications: Active Medications Acetaminophen (Tylenol -) 650 mg PO Q8H PRN PRN Reason: FEVER Last Admin: 07/18/17 07:33 Dose: 650 mg Acetaminophen (Tylenol -) 650 mg PO HS NEIL Last Admin: 07/17/17 21:25 Dose: 650 mg Atenolol (Tenormin -) 100 mg PO BID NEIL Last Admin: 07/18/17 09:36 Dose: 100 mg Atorvastatin Calcium (Lipitor -) 80 mg PO HS NEIL Last Admin: 07/17/17 21:25 Dose: 80 mg Bacitracin (Bacitracin -) 1 applic TP DAILY NEIL Last Admin: 07/18/17 09:35 Dose: 1 applic Collagenase (Santyl -) 1 applic TP DAILY NEIL Last Admin: 07/18/17 09:38 Dose: 1 applic Furosemide (Lasix Injection -) 80 mg IVPUSH DAILY NEIL Last Admin: 07/18/17 09:35 Dose: 80 mg Furosemide (Lasix Injection -) 40 mg IVPUSH ONCE ONE Stop: 07/18/17 16:31 Glipizide (Glucotrol Xl -) 10 mg PO BID NEIL Last Admin: 07/18/17 09:35 Dose: 10 mg Heparin Sodium (Porcine) (Heparin -) 5,000 unit IVPUSH PRN PRN PRN Reason: HEPARIN PROTOCOL Heparin Sodium (Porcine) (Heparin -) 1,000 unit IVPUSH PRN PRN PRN Reason: HEPARIN PROTOCOL Piperacillin Sod/Tazobactam (Sod 2.25 gm/ Dextrose) 50 mls @ 100 mls/hr IVPB Q8H-IV NEIL PRN Reason: Protocol Last Admin: 07/18/17 09:36 Dose: 100 mls/hr Heparin Sodium (Porcine) 25, (000 unit/ Sodium Chloride) 500 mls @ 22 mls/hr IV TITR NEIL; 1,100 UNIT/HR PRN Reason: Protocol Last Admin: 07/18/17 09:34 Dose: 1,100 unit/hr, 22 mls/hr Vancomycin HCl 1,000 mg/ (Dextrose) 250 mls @ 200 mls/hr IVPB Q24H NEIL PRN Reason: Protocol Last Admin: 07/18/17 15:24 Dose: 200 mls/hr Insulin Aspart (Novolog Vial Sliding Scale -) 1 vial SQ ACHS [facility] PRN Reason: Protocol Last Admin: 07/18/17 16:26 Dose: 6 units Insulin Detemir (Levemir Vial) 60 units SQ DAILY@0700 [facility] Last Admin: 07/18/17 06:32 Dose: 60 units Levothyroxine Sodium (Synthroid -) 100 mcg PO DAILY@0700 [facility] Last Admin: 07/18/17 06:30 Dose: 100 mcg Liraglutide (Victoza -) 1.8 mg SQ DAILY@0700 [facility] Last Admin: 07/18/17 06:31 Dose: 1.8 mg Oxycodone HCl (Roxicodone -) 10 mg PO [facility] Last Admin: 07/17/17 21:25 Dose: 10 mg Oxycodone HCl (Roxicodone -) 10 mg PO Q4H PRN PRN Reason: PAIN LEVEL 7 - 10 Last Admin: 07/18/17 14:10 Dose: 10 mg - Objective Vital Signs: Vital Signs Temperature 97.8 F 07/18/17 14:24 Pulse Rate 83 07/18/17 14:24 Respiratory Rate 16 07/18/17 14:24 Blood Pressure 130/76 07/18/17 14:24 O2 Sat by Pulse Oximetry (%) 94 L 07/18/17 08:59 Constitutional: Yes: Calm Eyes: Yes: Conjunctiva Clear HENT: Yes: Atraumatic Neck: Yes: Supple Cardiovascular: Yes: S1, S2 Respiratory: Yes: Rhonchi Gastrointestinal: Yes: Soft, Abdomen, Obese Genitourinary: Yes: WNL Musculoskeletal: Yes: Joint Swelling Edema: Yes Edema: LLE: 3+, RLE: 3+ Integumentary: Yes: Erythema, Venous Stasis Changes Neurological: Yes: Oriented Psychiatric: Yes: Oriented Labs: CBC, BMP 07/18/17 07:00 07/18/17 07:00 INR, PTT INR 1.75 (0.82-1.09) H 07/18/17 07:00 Problem List - Problems (1) CKD (chronic kidney disease) Code(s): N18.9 - CHRONIC KIDNEY DISEASE, UNSPECIFIED (2) Accident due to mechanical fall without injury Code(s): W19.XXXA - UNSPECIFIED FALL, INITIAL ENCOUNTER (3) Acute renal failure (ARF) Code(s): N17.9 - ACUTE KIDNEY FAILURE, UNSPECIFIED Assessment/Plan Current Medications Generic Name Dose Route Start Last Admin Trade Name Freq PRN Reason Stop Dose Admin Acetaminophen 650 mg 07/12/17 08:03 07/18/17 07:33 Tylenol - PO 650 mg Q8H PRN Administration FEVER Acetaminophen 650 mg 07/12/17 22:00 07/17/17 21:25 Tylenol - PO 650 mg HS NEIL Administration Atenolol 100 mg 07/12/17 10:00 07/18/17 09:36 Tenormin - PO 100 mg BID NEIL Administration Atorvastatin Calcium 80 mg 07/12/17 22:00 07/17/17 21:25 Lipitor - PO 80 mg HS NEIL Administration Bacitracin 1 applic 07/14/17 17:15 07/18/17 09:35 Bacitracin - TP 1 applic DAILY NEIL Administration Collagenase 1 applic 07/12/17 10:00 07/18/17 09:38 Santyl - TP 1 applic DAILY NELI Administration Furosemide 80 mg 07/16/17 11:00 07/18/17 09:35 Lasix Injection - IVPUSH 80 mg DAILY NEIL Administration Furosemide 40 mg 07/18/17 16:30 Lasix Injection - IVPUSH 07/18/17 16:31 ONCE ONE Glipizide 10 mg 07/12/17 10:00 07/18/17 09:35 Glucotrol Xl - PO 10 mg BID NEIL Administration Heparin Sodium (Porcine) 5,000 unit 07/17/17 12:00 Heparin - IVPUSH PRN PRN HEPARIN PROTOCOL Heparin Sodium (Porcine) 1,000 unit 07/17/17 12:00 Heparin - IVPUSH PRN PRN HEPARIN PROTOCOL Piperacillin Sod/Tazobactam 50 mls @ 100 mls/hr 07/13/17 18:00 07/18/17 09:36 Sod 2.25 gm/ Dextrose IVPB 100 mls/hr Q8H-IV NEIL Administration Protocol Heparin Sodium (Porcine) 25, 500 mls @ 22 mls/hr 07/18/17 09:00 07/18/17 09: 34 000 unit/ Sodium Chloride IV 1,100 unit/hr TITR NEIL 22 mls/hr Protocol Administration 1,100 UNIT/HR Vancomycin HCl 1,000 mg/ 250 mls @ 200 mls/hr 07/17/17 15:00 07/18/17 15:24 Dextrose IVPB 200 mls/hr Q24H NEIL Administration Protocol Insulin Aspart 1 vial 07/14/17 11:15 07/18/17 16:26 Novolog Vial Sliding Scale - SQ 6 units ACHS NEIL Administration Protocol Insulin Detemir 60 units 07/15/17 08:45 07/18/17 06:32 Levemir Vial SQ 60 units DAILY@0700 NEIL Administration Levothyroxine Sodium 100 mcg 07/12/17 07:00 07/18/17 06:30 Synthroid - PO 100 mcg DAILY@0700 NEIL Administration Liraglutide 1.8 mg 07/13/17 07:00 07/18/17 06:31 Victoza - SQ 1.8 mg DAILY@0700 NEIL Administration Oxycodone HCl 10 mg 07/12/17 22:00 07/17/17 21:25 Roxicodone - PO 10 mg HS NEIL Administration Oxycodone HCl 10 mg 07/18/17 13:43 07/18/17 14:10 Roxicodone - PO 10 mg Q4H PRN Administration PAIN LEVEL 7 - 10 Impression 1. CKD 2. KRUNAL 3. volume overload 4. obesity 5. CAD 6. cellulitis 7. s/p fall 8. a-fib 9. DM 10. hypothyroidism 11. HLD 12. CHF Plan - will give another dose of lasix today - renal function is started to improve - pt remains fluid overloaded - follow x-ray - repeat cxr in am - potassium improving - keep jasmyne on hold - monitor vanco levels - will follow Dr Quiroz
[2017-07-18] MEDS: HEPARIN NA (PORCINE) 5,000 UNITS/ML 1ML VIAL IVPUSH PRN (16:54)
[2017-07-18] MEDS ORDERED: PT OWN MED DRAWER 7, Y5N ONE (21:37)
[2017-07-18] MEDS: ACETAMINOPHEN 325 MG TABLET (FP) PO SCH (21:38)
[2017-07-18] MEDS: oxyCODONE HCL 5 MG TABLET PO SCH (21:39)
[2017-07-18] MEDS: ATORVASTATIN CA 80 MG TABLET (FP) PO SCH (21:40)
[2017-07-19] MEDS: HEPARIN NA (PORCINE) 5,000 UNITS/ML 1ML VIAL IVPUSH PRN ×4 (01:15→22:29)
[2017-07-19] MEDS ORDERED: PIPERACILLIN/TAZOBACTAM 2.25 GM VIAL IVPB ONE (01:21)
[2017-07-19] MEDS ORDERED: DEXTROSE 5%-WATER - 50 ML IVPB ONE (01:21)
[2017-07-19] MEDS: PIPERACILLIN/TAZOB 2.25 GM 2.25 GM in DEXTROSE 5%-WATER - 50 ML IVPB SCH (01:25)
[2017-07-19] MEDS: oxyCODONE HCL 5 MG TABLET PO PRN (04:27)
[2017-07-19] MEDS: INSULIN (LEVEMIR) 100 UNITS/ML UNITS SQ SCH (06:37)
[2017-07-19] MEDS: LEVOTHYROXINE NA 100 MCG TABLET (FP) PO SCH (06:37)
[2017-07-19] MEDS: INSULIN SLIDING SCALE (NOVOLOG) 1 VIAL SQ SCH ×4 (06:37→22:01)
[2017-07-19] MEDS: LIRAGLUTIDE 0.6 MG/0.1 ML PEN.INJCTR SQ SCH (06:38)
[2017-07-19] MEDS ORDERED: INSULIN (NOVOLOG) ASPART 100 UNITS/ML 10ML VIAL ONE ×2 (06:52→18:27)
[2017-07-19] MEDS: HEPARIN - 25,000 UNIT in SODIUM CHLORIDE 495 ML IV SCH ×3 (07:01→22:29)
--- NOTE | 2017-07-19 08:17 | PN ---
Progress Note, Physician Chief Complaint: Afebrile, WBC back to normal. Noted worsened BUN/Creatinine Left foot pain -severe, patient reports that even the light touch causing pain History of Present Illness: Morbid obesity. ASHLEY. Bilateral PE. Pulmonary HTN-CTEPH AND CLASS 2 PAH. CHF-mostly diastolic. ASHD. STEMI in 2016 with MICHAEL x2 placed at [place]. Chronic A.Fib-on a/c-Xarelto/ASA now. Gout. 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 Chronic DVT Right thigh, Stasis ulcers, edema. Chronic wound right Ankle/dobbs-RX at [facility]-groing multiple organisms. - Current Medication List Current Medications: Active Medications Acetaminophen (Tylenol -) 650 mg PO Q8H PRN PRN Reason: FEVER Last Admin: 07/18/17 07:33 Dose: 650 mg Amoxicillin/Clavulanate Potassium (Augmentin - 875mg Tablet) 1 tab PO BID@0800, 1730 NEIL Atenolol (Tenormin -) 100 mg PO BID NEIL Last Admin: 07/18/17 21:38 Dose: 100 mg Atorvastatin Calcium (Lipitor -) 80 mg PO HS NEIL Last Admin: 07/18/17 21:40 Dose: 80 mg Bacitracin (Bacitracin -) 1 applic TP DAILY NEIL Last Admin: 07/18/17 09:35 Dose: 1 applic Collagenase (Santyl -) 1 applic TP DAILY [facility] Last Admin: 07/18/17 09:38 Dose: 1 applic Furosemide (Lasix Injection -) 80 mg IVPUSH DAILY [facility] Last Admin: 07/18/17 09:35 Dose: 80 mg Glipizide (Glucotrol Xl -) 10 mg PO BID [facility] Last Admin: 07/18/17 21:40 Dose: 10 mg Heparin Sodium (Porcine) (Heparin -) 5,000 unit IVPUSH PRN PRN PRN Reason: HEPARIN PROTOCOL Last Admin: 07/18/17 16:54 Dose: 5,000 unit Heparin Sodium (Porcine) (Heparin -) 1,000 unit IVPUSH PRN PRN PRN Reason: HEPARIN PROTOCOL Last Admin: 07/19/17 01:15 Dose: 1,000 unit Heparin Sodium (Porcine) 25, (000 unit/ Sodium Chloride) 500 mls @ 22 mls/hr IV TITR NEIL; 1,100 UNIT/HR PRN Reason: Protocol Last Admin: 07/19/17 07:01 Dose: 1,350 unit/hr, 27 mls/hr Vancomycin HCl 1,000 mg/ (Dextrose) 250 mls @ 200 mls/hr IVPB Q24H [facility] PRN Reason: Protocol Last Admin: 07/18/17 15:24 Dose: 200 mls/hr Insulin Aspart (Novolog Vial Sliding Scale -) 1 vial SQ ACHS [facility] PRN Reason: Protocol Last Admin: 07/19/17 06:37 Dose: 2 units Insulin Detemir (Levemir Vial) 60 units SQ DAILY@0700 [facility] Last Admin: 07/19/17 06:37 Dose: 60 units Levothyroxine Sodium (Synthroid -) 100 mcg PO DAILY@0700 [facility] Last Admin: 07/19/17 06:37 Dose: 100 mcg Liraglutide (Victoza -) 1.8 mg SQ DAILY@0700 [facility] Last Admin: 07/19/17 06:38 Dose: 1.8 mg Oxycodone HCl (Roxicodone -) 10 mg PO HS [facility] Last Admin: 07/18/17 21:39 Dose: 10 mg Sodium Polystyrene Sulfonate (Kayexalate -) 30 gm PO ONCE ONE Stop: 07/19/17 07:57 - Objective Vital Signs: Vital Signs Temperature 97.5 F L 07/19/17 06:00 Pulse Rate 80 07/19/17 06:00 Respiratory Rate 16 07/19/17 06:00 Blood Pressure 120/84 07/19/17 06:00 O2 Sat by Pulse Oximetry (%) 95 07/18/17 22:00 Constitutional: Yes: Anxious, Mild Distress Eyes: Yes: Conjunctiva Clear, EOM Intact HENT: Yes: Atraumatic, Normocephalic Neck: Yes: Supple, Trachea Midline Cardiovascular: Yes: Pulse Irregular Respiratory: Yes: Regular, Diminished (B/B) Gastrointestinal: Yes: Normal Bowel Sounds, Soft, Abdomen, Obese, Other ( Echimosis abdominal wall) ...Rectal Exam: Yes: Deferred Genitourinary: No: Anuria Breast(s): Yes: WNL, Gynecomastia Musculoskeletal: Yes: Back Pain Extremities: Yes: Erythema (right thigh-imroved). No: Calf Tenderness, Cyanosis Edema: LLE: 1+, RLE: 1+ Peripheral Pulses WNL: No Integumentary: Yes: Other (Right ankle stasis ulcers) Neurological: Yes: Alert, Oriented. No: Aphasia, Seizure Psychiatric: Yes: WNL Labs: CBC, BMP 07/18/17 07:00 INR, PTT INR 1.75 (0.82-1.09) H 07/18/17 07:00 Problem List - Problems (1) Atrial fibrillation Assessment/Plan: continue rate control, heparin Code(s): I48.91 - UNSPECIFIED ATRIAL FIBRILLATION Qualifiers: Atrial fibrillation type: chronic Qualified Code(s): I48.2 - Chronic atrial fibrillation (2) CHF (congestive heart failure) Assessment/Plan: OFF UVALDO nephrology consult noted Continue Lasix though noted worsening renal fx Decrease PO fluids intake-restriction 1400 cc Code(s): I50.9 - HEART FAILURE, UNSPECIFIED (3) Cellulitis of right leg Assessment/Plan: Received 7 days of IV Zosyn, will switch to PO-when the w/u for left leg pain- negative for ostheomyelitis. Wound care Apply UVALDO bandages for venous stasis Code(s): L03.115 - CELLULITIS OF RIGHT LOWER LIMB (4) Diabetes Assessment/Plan: Increase Levemir 60 units QD Novolog sliding scale Code(s): E11.9 - TYPE 2 DIABETES MELLITUS WITHOUT COMPLICATIONS Qualifiers: Diabetes mellitus type: type 2 Diabetes mellitus complication status: with circulatory complication (5) Acute renal failure (ARF) Code(s): N17.9 - ACUTE KIDNEY FAILURE, UNSPECIFIED (6) Acute renal insufficiency Assessment/Plan: Acute renal insufficiency in CKD Diff dx [id number] insufficiency, ATN and hypotension due to sepsis and infection. Code(s): N28.9 - DISORDER OF KIDNEY AND URETER, UNSPECIFIED (7) Hyperkalemia, diminished renal excretion Assessment/Plan: Keyexalate is ordered PO Code(s): E87.5 - HYPERKALEMIA (8) Pain of left lower leg Assessment/Plan: CT ordered three phase bone scan ordered. R/o gouty arthritis.-will give Sumedrol 40 mg x1 and Colchicine 0.6 Code(s): M79.662 - PAIN IN LEFT LOWER LEG
[2017-07-19 08:19] LABS: HEMATOCRIT 27.8 % (35.4-49); HEMOGLOBIN 9.1 GM/dL (11.7-16.9); MCH 31.4 pg (25.7-33.7); MCHC 32.6 g/dl (32.0-35.9); MEAN CELL VOLUME 96.2 fl (80-96); MEAN PLT VOLUME 8.1 fl (7.5-11.1); PLATELET COUNT 182 K/MM3 (134-434); RBC 2.89 M/mm3 (4.00-5.60); RDW 16.6 % (11.9-15.9); WHITE BLOOD COUNT 8.7 K/mm3 (4.0-10.0)
[2017-07-19] MEDS ORDERED: SODIUM POLYSTYRENE SULFONATE 15 GM/60 ML BOTTLE PO ONE (08:40)
--- NOTE | 2017-07-19 09:06 | PN ---
Progress Note, Physician Chief Complaint: no acute distress Switched to IV heparin over weekend due to low GFR- could not continue Xarelto - Current Medication List Current Medications: Active Medications Acetaminophen (Tylenol -) 650 mg PO Q8H PRN PRN Reason: FEVER Last Admin: 07/18/17 07:33 Dose: 650 mg Amoxicillin/Clavulanate Potassium (Augmentin - 875mg Tablet) 1 tab PO BID@0800, 1730 [facility] Atenolol (Tenormin -) 100 mg PO BID [facility] Last Admin: 07/18/17 21:38 Dose: 100 mg Atorvastatin Calcium (Lipitor -) 80 mg PO HS [facility] Last Admin: 07/18/17 21:40 Dose: 80 mg Bacitracin (Bacitracin -) 1 applic TP DAILY [facility] Last Admin: 07/18/17 09:35 Dose: 1 applic Colchicine (Colcrys -) 0.6 mg PO DAILY [facility] Collagenase (Santyl -) 1 applic TP DAILY [facility] Last Admin: 07/18/17 09:38 Dose: 1 applic Furosemide (Lasix Injection -) 80 mg IVPUSH DAILY [facility] Last Admin: 07/18/17 09:35 Dose: 80 mg Glipizide (Glucotrol Xl -) 10 mg PO BID [facility] Last Admin: 07/18/17 21:40 Dose: 10 mg Heparin Sodium (Porcine) (Heparin -) 5,000 unit IVPUSH PRN PRN PRN Reason: HEPARIN PROTOCOL Last Admin: 07/19/17 08:49 Dose: 5,000 unit Heparin Sodium (Porcine) (Heparin -) 1,000 unit IVPUSH PRN PRN PRN Reason: HEPARIN PROTOCOL Last Admin: 07/19/17 01:15 Dose: 1,000 unit Heparin Sodium (Porcine) 25, (000 unit/ Sodium Chloride) 500 mls @ 22 mls/hr IV TITR NEIL; 1,100 UNIT/HR PRN Reason: Protocol Last Titration: 07/19/17 08:50 Dose: 1,500 unit/hr, 30 mls/hr Vancomycin HCl 1,000 mg/ (Dextrose) 250 mls @ 200 mls/hr IVPB Q24H [facility] PRN Reason: Protocol Last Admin: 07/18/17 15:24 Dose: 200 mls/hr Insulin Aspart (Novolog Vial Sliding Scale -) 1 vial SQ ACHS [facility] PRN Reason: Protocol Last Admin: 07/19/17 06:37 Dose: 2 units Insulin Detemir (Levemir Vial) 60 units SQ DAILY@0700 [facility] Last Admin: 07/19/17 06:37 Dose: 60 units Levothyroxine Sodium (Synthroid -) 100 mcg PO DAILY@0700 [facility] Last Admin: 07/19/17 06:37 Dose: 100 mcg Liraglutide (Victoza -) 1.8 mg SQ DAILY@0700 [facility] Last Admin: 07/19/17 06:38 Dose: 1.8 mg Methylprednisolone Sodium Succinate (Solu-Medrol -) 1,000 mg IVPB ONCE ONE Stop: 07/19/17 09:16 Oxycodone HCl (Roxicodone -) 10 mg PO [facility] Last Admin: 07/18/17 21:39 Dose: 10 mg - Objective Vital Signs: Vital Signs Temperature 97.8 F 07/19/17 08:41 Pulse Rate 67 07/19/17 08:41 Respiratory Rate 18 07/19/17 08:41 Blood Pressure 110/60 07/19/17 08:41 O2 Sat by Pulse Oximetry (%) 95 07/18/17 22:00 Constitutional: Yes: No Distress, Calm Cardiovascular: Yes: Pulse Irregular Respiratory: Yes: Other (decreased breath sounds at bases , no wheezing) Gastrointestinal: Yes: Soft, Abdomen, Obese Edema: Yes Edema: LLE: 2+, RLE: 2+ Neurological: Yes: Alert, Oriented ...Motor Strength: WNL Labs: CBC, BMP 07/19/17 08:07 07/18/17 07:00 INR, PTT INR 1.75 (0.82-1.09) H 07/18/17 07:00 Laboratory Tests 07/18/17 07/19/17 07/19/17 07:00 08:07 08:07 WBC 8.7 Hgb 9.1 L Plt Count 182 PTT (Actin FS) 35.1 H Potassium 5.2 H BUN 116 H* Creatinine 3.9 H Assessment/Plan IMP: Fall ARF, acute on chronic RLE cellulitis Acute Gout Morbid obesity PHTN Chronic AF CAD s/p PCI Acute on chronic diastolic CHF REC: Lasix resumed, nephrology following. Continue to hold UVALDO-I. off xarelto, cont heparin gtts Resume ASA 81mg daily (h/o Coronary PCI)- held few days due to nasal bleeding
[2017-07-19] MEDS ORDERED: methylPREDNISolone NA SUCC 1000 MG/8 ML VIAL IVPB ONE (09:15)
[2017-07-19 09:43] LABS: ALBUMIN 2.7 g/dl (3.4-5.0); ANION GAP 9 (8-16); BILIRUBIN,TOTAL 0.9 mg/dL (0.2-1.0); CALCIUM 8.1 mg/dL (8.5-10.1); CHLORIDE 108 mmol/L (98-107); CO2 22 mmol/L (21-32); CREATININE 3.6 mg/dL (0.7-1.3); GLUCOSE,RANDOM 161 mg/dL (74-106); POTASSIUM 4.8 mmol/L (3.5-5.1); SGOT/AST 18 U/L (15-37); SGPT/ALT 22 U/L (12-78); SODIUM 139 mmol/L (136-145); TOT PROT 7.3 g/dl (6.4-8.2)
[2017-07-19 09:44] LABS: ALK PHOS 85 U/L (45-117)
[2017-07-19] MEDS: COLCHICINE 0.6 MG TABLET (FP) PO SCH (09:57)
[2017-07-19] MEDS: FUROSEMIDE 40 MG/4 ML INJECTABLE VIAL IVPUSH SCH (09:58)
[2017-07-19] MEDS: glipiZIDE-XL 10 MG TAB.ER.24 (FP) PO SCH ×2 (09:58→21:59)
[2017-07-19] MEDS: ATENOLOL 50 MG TABLET (FP) PO SCH ×2 (09:58→22:02)
[2017-07-19 09:59] LABS: BLOOD UREA NITROGEN 110 mg/dL (7-18)
[2017-07-19] MEDS: BACITRACIN 15 GM TUBE TOPICAL OINTMENT TP SCH (09:59)
[2017-07-19] MEDS: COLLAGENASE CLOSTRIDIUM HIST. 30 GRAMS TUBE TP SCH (10:07)
--- NOTE | 2017-07-19 12:22 | PN ---
Progress Note, Physician History of Present Illness: PULMONARY ALERT,NO DISTRESS,-SOB - Current Medication List Current Medications: Active Medications Acetaminophen (Tylenol -) 650 mg PO Q8H PRN PRN Reason: FEVER Last Admin: 07/18/17 07:33 Dose: 650 mg Amoxicillin/Clavulanate Potassium (Augmentin - 875mg Tablet) 1 tab PO BID@0800, 1730 [facility] Aspirin (Asa -) 81 mg PO DAILY [facility]IL Atenolol (Tenormin -) 100 mg PO BID [facility] Last Admin: 07/19/17 09:58 Dose: 100 mg Atorvastatin Calcium (Lipitor -) 80 mg PO HS [facility] Last Admin: 07/18/17 21:40 Dose: 80 mg Bacitracin (Bacitracin -) 1 applic TP DAILY [facility] Last Admin: 07/19/17 09:59 Dose: 1 applic Colchicine (Colcrys -) 0.6 mg PO DAILY [facility] Last Admin: 07/19/17 09:57 Dose: 0.6 mg Collagenase (Santyl -) 1 applic TP DAILY [facility] Last Admin: 07/19/17 10:07 Dose: 1 applic Furosemide (Lasix Injection -) 80 mg IVPUSH DAILY [facility] Last Admin: 07/19/17 09:58 Dose: 80 mg Glipizide (Glucotrol Xl -) 10 mg PO BID [facility] Last Admin: 07/19/17 09:58 Dose: 10 mg Heparin Sodium (Porcine) (Heparin -) 5,000 unit IVPUSH PRN PRN PRN Reason: HEPARIN PROTOCOL Last Admin: 07/19/17 08:49 Dose: 5,000 unit Heparin Sodium (Porcine) (Heparin -) 1,000 unit IVPUSH PRN PRN PRN Reason: HEPARIN PROTOCOL Last Admin: 07/19/17 01:15 Dose: 1,000 unit Heparin Sodium (Porcine) 25, (000 unit/ Sodium Chloride) 500 mls @ 22 mls/hr IV TITR NEIL; 1,100 UNIT/HR PRN Reason: Protocol Last Admin: 07/19/17 09:48 Dose: Not Given Vancomycin HCl 1,000 mg/ (Dextrose) 250 mls @ 200 mls/hr IVPB Q24H [facility] PRN Reason: Protocol Last Admin: 07/18/17 15:24 Dose: 200 mls/hr Insulin Aspart (Novolog Vial Sliding Scale -) 1 vial SQ ACHS [facility] PRN Reason: Protocol Last Admin: 07/19/17 06:37 Dose: 2 units Insulin Detemir (Levemir Vial) 60 units SQ DAILY@07 [facility] Last Admin: 07/19/17 06:37 Dose: 60 units Levothyroxine Sodium (Synthroid -) 100 mcg PO DAILY@0700 [facility] Last Admin: 07/19/17 06:37 Dose: 100 mcg Liraglutide (Victoza -) 1.8 mg SQ DAILY@07 [facility] Last Admin: 07/19/17 06:38 Dose: 1.8 mg Oxycodone HCl (Roxicodone -) 10 mg PO [facility] Last Admin: 07/18/17 21:39 Dose: 10 mg - Objective Vital Signs: Vital Signs Temperature 97.8 F 07/19/17 08:41 Pulse Rate 67 07/19/17 08:41 Respiratory Rate 18 07/19/17 08:41 Blood Pressure 110/60 07/19/17 08:41 O2 Sat by Pulse Oximetry (%) 91 L 07/19/17 09:00 Constitutional: Yes: Calm, Obese Eyes: Yes: WNL HENT: Yes: WNL Neck: Yes: WNL Cardiovascular: Yes: Pulse Irregular, S1, S2 Respiratory: Yes: Diminished Gastrointestinal: Yes: Normal Bowel Sounds, Soft Extremities: Yes: WNL Edema: Yes Labs: CBC, BMP 07/19/17 08:07 07/19/17 09:25 INR, PTT INR 1.75 (0.82-1.09) H 07/18/17 07:00 Problem List - Problems (1) Accident due to mechanical fall without injury Code(s): W19.XXXA - UNSPECIFIED FALL, INITIAL ENCOUNTER (2) Atrial fibrillation Code(s): I48.91 - UNSPECIFIED ATRIAL FIBRILLATION Qualifiers: Atrial fibrillation type: chronic Qualified Code(s): I48.2 - Chronic atrial fibrillation (3) CAD (coronary artery disease) Code(s): I25.10 - ATHSCL HEART DISEASE OF [place] CORONARY ARTERY W/O ANG PCTRS (4) CHF (congestive heart failure) Code(s): I50.9 - HEART FAILURE, UNSPECIFIED (5) DVT (deep venous thrombosis) Code(s): I82.409 - ACUTE EMBOLISM AND THOMBOS UNSP DEEP VN UNSP LOWER EXTREMITY Qualifiers: DVT location: lower extremity Affected thrombotic vein of extremity: femoral Chronicity: chronic Laterality: right Qualified Code(s): I82.511 - Chronic embolism and thrombosis of right femoral vein (6) Obesities, morbid Code(s): E66.01 - MORBID (SEVERE) OBESITY DUE TO EXCESS CALORIES (7) Pulmonary embolism Code(s): I26.99 - OTHER PULMONARY EMBOLISM WITHOUT ACUTE COR PULMONALE (8) Venous (peripheral) insufficiency Code(s): I87.2 - VENOUS INSUFFICIENCY (CHRONIC) (PERIPHERAL) (9) Sleep apnea Code(s): G47.30 - SLEEP APNEA, UNSPECIFIED (10) COPD (chronic obstructive pulmonary disease) Code(s): J44.9 - CHRONIC OBSTRUCTIVE PULMONARY DISEASE, UNSPECIFIED (11) Pulmonary HTN Code(s): I27.20 - PULMONARY HYPERTENSION, UNSPECIFIED (12) Dyspnea Code(s): R06.00 - DYSPNEA, UNSPECIFIED (13) Cellulitis Code(s): L03.90 - CELLULITIS, UNSPECIFIED Assessment/Plan IMP CELLULITIS S/P MECHANICAL FALL CHF ASHD S/P PCI OSAS AFIB H/O DVT/PE PULMONARY HTN MORBID OBESITY CKD PLAN LASIX O2 ABX INHALED BRONCHODILATORS BIPAP AT NIGHT AC MONITOR LYTES,RENAL FUNCTION DR MACHADO Problem List - Problems (1) Accident due to mechanical fall without injury Code(s): W19.XXXA - UNSPECIFIED FALL, INITIAL ENCOUNTER (2) Atrial fibrillation Code(s): I48.91 - UNSPECIFIED ATRIAL FIBRILLATION Qualifiers: Atrial fibrillation type: chronic Qualified Code(s): I48.2 - Chronic atrial fibrillation (3) CAD (coronary artery disease) Code(s): I25.10 - ATHSCL HEART DISEASE OF [place] CORONARY ARTERY W/O ANG PCTRS (4) CHF (congestive heart failure) Code(s): I50.9 - HEART FAILURE, UNSPECIFIED (5) DVT (deep venous thrombosis) Code(s): I82.409 - ACUTE EMBOLISM AND THOMBOS UNSP DEEP VN UNSP LOWER EXTREMITY Qualifiers: DVT location: lower extremity Affected thrombotic vein of extremity: femoral Chronicity: chronic Laterality: right Qualified Code(s): I82.511 - Chronic embolism and thrombosis of right femoral vein (6) Obesities, morbid Code(s): E66.01 - MORBID (SEVERE) OBESITY DUE TO EXCESS CALORIES (7) Pulmonary embolism Code(s): I26.99 - OTHER PULMONARY EMBOLISM WITHOUT ACUTE COR PULMONALE (8) Venous (peripheral) insufficiency Code(s): I87.2 - VENOUS INSUFFICIENCY (CHRONIC) (PERIPHERAL) (9) Sleep apnea Code(s): G47.30 - SLEEP APNEA, UNSPECIFIED (10) COPD (chronic obstructive pulmonary disease) Code(s): J44.9 - CHRONIC OBSTRUCTIVE PULMONARY DISEASE, UNSPECIFIED (11) Pulmonary HTN Code(s): I27.20 - PULMONARY HYPERTENSION, UNSPECIFIED (12) Dyspnea Code(s): R06.00 - DYSPNEA, UNSPECIFIED (13) Cellulitis Code(s): L03.90 - CELLULITIS, UNSPECIFIED
--- NOTE | 2017-07-19 12:55 | PN ---
Progress Note, Physician History of Present Illness: doing well no issues wounds looked at dressing removed - Current Medication List Current Medications: Active Medications Acetaminophen (Tylenol -) 650 mg PO Q8H PRN PRN Reason: FEVER Last Admin: 07/18/17 07:33 Dose: 650 mg Aspirin (Asa -) 81 mg PO DAILY [facility] Atenolol (Tenormin -) 100 mg PO BID [facility] Last Admin: 07/19/17 09:58 Dose: 100 mg Atorvastatin Calcium (Lipitor -) 80 mg PO HS [facility] Last Admin: 07/18/17 21:40 Dose: 80 mg Bacitracin (Bacitracin -) 1 applic TP DAILY [facility] Last Admin: 07/19/17 09:59 Dose: 1 applic Colchicine (Colcrys -) 0.6 mg PO DAILY [facility] Last Admin: 07/19/17 09:57 Dose: 0.6 mg Collagenase (Santyl -) 1 applic TP DAILY [facility] Last Admin: 07/19/17 10:07 Dose: 1 applic Furosemide (Lasix Injection -) 80 mg IVPUSH DAILY [facility] Last Admin: 07/19/17 09:58 Dose: 80 mg Glipizide (Glucotrol Xl -) 10 mg PO BID [facility] Last Admin: 07/19/17 09:58 Dose: 10 mg Heparin Sodium (Porcine) (Heparin -) 5,000 unit IVPUSH PRN PRN PRN Reason: HEPARIN PROTOCOL Last Admin: 07/19/17 08:49 Dose: 5,000 unit Heparin Sodium (Porcine) (Heparin -) 1,000 unit IVPUSH PRN PRN PRN Reason: HEPARIN PROTOCOL Last Admin: 07/19/17 01:15 Dose: 1,000 unit Heparin Sodium (Porcine) 25, (000 unit/ Sodium Chloride) 500 mls @ 22 mls/hr IV TITR NEIL; 1,100 UNIT/HR PRN Reason: Protocol Last Admin: 07/19/17 09:48 Dose: Not Given Vancomycin HCl 1,000 mg/ (Dextrose) 250 mls @ 200 mls/hr IVPB Q24H [facility] PRN Reason: Protocol Last Admin: 07/18/17 15:24 Dose: 200 mls/hr Insulin Aspart (Novolog Vial Sliding Scale -) 1 vial SQ ACHS [facility] PRN Reason: Protocol Last Admin: 07/19/17 12:30 Dose: 2 units Insulin Detemir (Levemir Vial) 60 units SQ DAILY@0700 [facility] Last Admin: 07/19/17 06:37 Dose: 60 units Levothyroxine Sodium (Synthroid -) 100 mcg PO DAILY@07 [facility] Last Admin: 07/19/17 06:37 Dose: 100 mcg Liraglutide (Victoza -) 1.8 mg SQ DAILY@0700 [facility] Last Admin: 07/19/17 06:38 Dose: 1.8 mg Oxycodone HCl (Roxicodone -) 10 mg PO [facility] Last Admin: 07/18/17 21:39 Dose: 10 mg - Objective Vital Signs: Vital Signs Temperature 97.8 F 07/19/17 08:41 Pulse Rate 67 07/19/17 08:41 Respiratory Rate 18 07/19/17 08:41 Blood Pressure 110/60 07/19/17 08:41 O2 Sat by Pulse Oximetry (%) 91 L 07/19/17 09:00 Constitutional: Yes: No Distress, Calm, Obese Cardiovascular: Yes: Regular Rate and Rhythm Respiratory: Yes: Regular, CTA Bilaterally Gastrointestinal: Yes: Normal Bowel Sounds, Soft Musculoskeletal: Yes: Other Extremities: Yes: Other (swelling slightly less) Neurological: Yes: Alert, Oriented Psychiatric: Yes: Alert, Oriented Labs: CBC, BMP 07/19/17 08:07 07/19/17 09:25 INR, PTT INR 1.75 (0.82-1.09) H 07/18/17 07:00 Assessment/Plan Problem List - Problems (1) Accident due to mechanical fall without injury Code(s): W19.XXXA - UNSPECIFIED FALL, INITIAL ENCOUNTER (2) Atrial fibrillation Code(s): I48.91 - UNSPECIFIED ATRIAL FIBRILLATION Qualifiers: Atrial fibrillation type: chronic Qualified Code(s): I48.2 - Chronic atrial fibrillation (3) CAD (coronary artery disease) Code(s): I25.10 - ATHSCL HEART DISEASE OF [place] CORONARY ARTERY W/O ANG PCTRS (4) CHF (congestive heart failure) Code(s): I50.9 - HEART FAILURE, UNSPECIFIED (5) DVT (deep venous thrombosis) Code(s): I82.409 - ACUTE EMBOLISM AND THOMBOS UNSP DEEP VN UNSP LOWER EXTREMITY Qualifiers: DVT location: lower extremity Affected thrombotic vein of extremity: femoral Chronicity: chronic Laterality: right Qualified Code(s): I82.511 - Chronic embolism and thrombosis of right femoral vein (6) Obesities, morbid Code(s): E66.01 - MORBID (SEVERE) OBESITY DUE TO EXCESS CALORIES (7) Pulmonary embolism Code(s): I26.99 - OTHER PULMONARY EMBOLISM WITHOUT ACUTE COR PULMONALE (8) Venous (peripheral) insufficiency Code(s): I87.2 - VENOUS INSUFFICIENCY (CHRONIC) (PERIPHERAL) (9) Sleep apnea Code(s): G47.30 - SLEEP APNEA, UNSPECIFIED (10) COPD (chronic obstructive pulmonary disease) Code(s): J44.9 - CHRONIC OBSTRUCTIVE PULMONARY DISEASE, UNSPECIFIED (11) Pulmonary HTN Code(s): I27.20 - PULMONARY HYPERTENSION, UNSPECIFIED (12) Dyspnea Code(s): R06.00 - DYSPNEA, UNSPECIFIED (13) Cellulitis Code(s): L03.90 - CELLULITIS, UNSPECIFIED 14) wound infection 15 leukocytosis plan will change abx to ceftazidime continue vanco rest continue current mgmt rest as per primary
--- NOTE | 2017-07-19 13:00 | PN ---
Progress Note, Physician History of Present Illness: Pt seen and examined at bedside. He is awake and alert. He feels that the edema is starting to improve. - Current Medication List Current Medications: Active Medications Acetaminophen (Tylenol -) 650 mg PO Q8H PRN PRN Reason: FEVER Last Admin: 07/18/17 07:33 Dose: 650 mg Aspirin (Asa -) 81 mg PO DAILY [facility] Atenolol (Tenormin -) 100 mg PO BID [facility] Last Admin: 07/19/17 09:58 Dose: 100 mg Atorvastatin Calcium (Lipitor -) 80 mg PO HS [facility] Last Admin: 07/18/17 21:40 Dose: 80 mg Bacitracin (Bacitracin -) 1 applic TP DAILY [facility] Last Admin: 07/19/17 09:59 Dose: 1 applic Colchicine (Colcrys -) 0.6 mg PO DAILY [facility] Last Admin: 07/19/17 09:57 Dose: 0.6 mg Collagenase (Santyl -) 1 applic TP DAILY [facility] Last Admin: 07/19/17 10:07 Dose: 1 applic Furosemide (Lasix Injection -) 80 mg IVPUSH DAILY [facility] Last Admin: 07/19/17 09:58 Dose: 80 mg Glipizide (Glucotrol Xl -) 10 mg PO BID [facility] Last Admin: 07/19/17 09:58 Dose: 10 mg Heparin Sodium (Porcine) (Heparin -) 5,000 unit IVPUSH PRN PRN PRN Reason: HEPARIN PROTOCOL Last Admin: 07/19/17 08:49 Dose: 5,000 unit Heparin Sodium (Porcine) (Heparin -) 1,000 unit IVPUSH PRN PRN PRN Reason: HEPARIN PROTOCOL Last Admin: 07/19/17 01:15 Dose: 1,000 unit Heparin Sodium (Porcine) 25, (000 unit/ Sodium Chloride) 500 mls @ 22 mls/hr IV TITR [facility]IL; 1,100 UNIT/HR PRN Reason: Protocol Last Admin: 07/19/17 09:48 Dose: Not Given Vancomycin HCl 1,000 mg/ (Dextrose) 250 mls @ 200 mls/hr IVPB Q24H [facility] PRN Reason: Protocol Last Admin: 07/18/17 15:24 Dose: 200 mls/hr Insulin Aspart (Novolog Vial Sliding Scale -) 1 vial SQ ACHS [facility] PRN Reason: Protocol Last Admin: 07/19/17 12:30 Dose: 2 units Insulin Detemir (Levemir Vial) 60 units SQ DAILY@0700 [facility] Last Admin: 07/19/17 06:37 Dose: 60 units Levothyroxine Sodium (Synthroid -) 100 mcg PO DAILY@0700 [facility] Last Admin: 07/19/17 06:37 Dose: 100 mcg Liraglutide (Victoza -) 1.8 mg SQ DAILY@0700 [facility] Last Admin: 07/19/17 06:38 Dose: 1.8 mg Oxycodone HCl (Roxicodone -) 10 mg PO HS [facility] Last Admin: 07/18/17 21:39 Dose: 10 mg - Objective Vital Signs: Vital Signs Temperature 97.8 F 07/19/17 08:41 Pulse Rate 67 07/19/17 08:41 Respiratory Rate 18 07/19/17 08:41 Blood Pressure 110/60 07/19/17 08:41 O2 Sat by Pulse Oximetry (%) 91 L 07/19/17 09:00 Constitutional: Yes: Calm Eyes: Yes: Conjunctiva Clear HENT: Yes: Atraumatic Cardiovascular: Yes: S1, S2 Respiratory: Yes: CTA Bilaterally Gastrointestinal: Yes: Abdomen, Obese Genitourinary: Yes: WNL Edema: Yes Edema: LLE: 2+, RLE: 2+ Wound/Incision: Yes: Dressing Dry and Intact Neurological: Yes: Oriented Psychiatric: Yes: Oriented Labs: CBC, BMP 07/19/17 08:07 07/19/17 09:25 INR, PTT INR 1.75 (0.82-1.09) H 07/18/17 07:00 Problem List - Problems (1) CKD (chronic kidney disease) Code(s): N18.9 - CHRONIC KIDNEY DISEASE, UNSPECIFIED (2) Accident due to mechanical fall without injury Code(s): W19.XXXA - UNSPECIFIED FALL, INITIAL ENCOUNTER (3) Acute renal failure (ARF) Code(s): N17.9 - ACUTE KIDNEY FAILURE, UNSPECIFIED Assessment/Plan Current Medications Generic Name Dose Route Start Last Admin Trade Name Freq PRN Reason Stop Dose Admin Acetaminophen 650 mg 07/12/17 08:03 07/18/17 07:33 Tylenol - PO 650 mg Q8H PRN Administration FEVER Aspirin 81 mg 07/20/17 10:00 Asa - PO DAILY [facility] Atenolol 100 mg 07/12/17 10:00 07/19/17 09:58 Tenormin - PO 100 mg BID [facility] Administration Atorvastatin Calcium 80 mg 07/12/17 22:00 07/18/17 21:40 Lipitor - PO 80 mg HS [facility] Administration Bacitracin 1 applic 07/14/17 17:15 07/19/17 09:59 Bacitracin - TP 1 applic DAILY [facility] Administration Colchicine 0.6 mg 07/19/17 10:00 07/19/17 09:57 Colcrys - PO 0.6 mg DAILY [facility] Administration Collagenase 1 applic 07/12/17 10:00 07/19/17 10:07 Santyl - TP 1 applic DAILY [facility] Administration Furosemide 80 mg 07/16/17 11:00 07/19/17 09:58 Lasix Injection - IVPUSH 80 mg DAILY [facility] Administration Glipizide 10 mg 07/12/17 10:00 07/19/17 09:58 Glucotrol Xl - PO 10 mg BID [facility] Administration Heparin Sodium (Porcine) 5,000 unit 07/17/17 12:00 07/19/17 08:49 Heparin - IVPUSH 5,000 unit PRN PRN Administration HEPARIN PROTOCOL Heparin Sodium (Porcine) 1,000 unit 07/17/17 12:00 07/19/17 01:15 Heparin - IVPUSH 1,000 unit PRN PRN Administration HEPARIN PROTOCOL Heparin Sodium (Porcine) 25, 500 mls @ 22 mls/hr 07/18/17 09:00 07/19/17 09: 48 000 unit/ Sodium Chloride IV Not Given TITR [facility] Protocol 1,100 UNIT/HR Vancomycin HCl 1,000 mg/ 250 mls @ 200 mls/hr 07/17/17 15:00 07/18/17 15:24 Dextrose IVPB 200 mls/hr Q24H [facility] Administration Protocol Insulin Aspart 1 vial 07/14/17 11:15 07/19/17 12:30 Novolog Vial Sliding Scale - SQ 2 units ACHS [facility] Administration Protocol Insulin Detemir 60 units 07/15/17 08:45 07/19/17 06:37 Levemir Vial SQ 60 units DAILY@0700 [facility] Administration Levothyroxine Sodium 100 mcg 07/12/17 07:00 07/19/17 06:37 Synthroid - PO 100 mcg DAILY@0700 [facility] Administration Liraglutide 1.8 mg 07/13/17 07:00 07/19/17 06:38 Victoza - SQ 1.8 mg DAILY@0700 [facility] Administration Oxycodone HCl 10 mg 07/12/17 22:00 07/18/17 21:39 Roxicodone - PO 10 mg HS [facility] Administration Impression 1. CKD 2. KRUNAL 3. volume overload 4. obesity 5. CAD 6. cellulitis 7. s/p fall 8. a-fib 9. DM 10. hypothyroidism 11. HLD 12. CHF Plan - cont with lasix - potassium is improving with lasix - renal function is improving - cardio input appreciated - keep jasmyne on hold - monitor vanco levels - will follow Dr Quiroz
[2017-07-19 13:17] LABS: MAGNESIUM 2.3 mg/dL (1.8-2.4)
[2017-07-19] MEDS ORDERED: cefTAZidime PENTAHYDRATE 1 GM/50ML PRE-DOCKED (RESTRICTED TO ID) IVPB SCH (13:30)
[2017-07-19] MEDS ORDERED: FUROSEMIDE 40 MG/4 ML INJECTABLE VIAL IVPUSH ONE (15:00)
[2017-07-19] MEDS ORDERED: PT OWN MED DRAWER 7, Y5N ONE ×2 (16:10→21:54)
[2017-07-19] MEDS: CEFTAZIDIME PENTAHYDRATE 1 GM in DEXTROSE 5%-WATER - 50 ML IVPB SCH ×2 (16:48→18:24)
[2017-07-19] MEDS ORDERED: AMOX TR/POT CLAV 875MG/125MG TABLETS (FP) PO SCH (17:30)
[2017-07-19] MEDS: VANCOMYCIN 1,000 MG in DEXTROSE 5%-WATER - 250 ML IVPB SCH (18:15)
[2017-07-19] MEDS: oxyCODONE HCL 5 MG TABLET PO SCH (21:58)
[2017-07-19] MEDS: ATORVASTATIN CA 80 MG TABLET (FP) PO SCH (21:58)
[2017-07-20] MEDS ORDERED: PT OWN MED DRAWER 7, Y5N ONE ×3 (01:20→21:31)
[2017-07-20] MEDS: CEFTAZIDIME PENTAHYDRATE 1 GM in DEXTROSE 5%-WATER - 50 ML IVPB SCH ×3 (02:38→17:34)
[2017-07-20] MEDS: LEVOTHYROXINE NA 100 MCG TABLET (FP) PO SCH (06:24)
[2017-07-20] MEDS: ACETAMINOPHEN 325 MG TABLET (FP) PO PRN ×2 (06:24→16:18)
[2017-07-20] MEDS: INSULIN (LEVEMIR) 100 UNITS/ML UNITS SQ SCH (06:26)
[2017-07-20] MEDS: INSULIN SLIDING SCALE (NOVOLOG) 1 VIAL SQ SCH ×4 (06:26→21:44)
[2017-07-20] MEDS: LIRAGLUTIDE 0.6 MG/0.1 ML PEN.INJCTR SQ SCH (06:47)
[2017-07-20 07:45] LABS: HEMATOCRIT 27.8 % (35.4-49); HEMOGLOBIN 9.3 GM/dL (11.7-16.9); MCHC 33.4 g/dl (32.0-35.9); MEAN PLT VOLUME 8.2 fl (7.5-11.1); PLATELET COUNT 197 K/MM3 (134-434); RBC 2.89 M/mm3 (4.00-5.60); RDW 16.7 % (11.9-15.9)
[2017-07-20 08:02] LABS: INR 1.32 (0.82-1.09); PROTHROMBIN TIME (PATIENT) 14.9 SEC (9.7-13.0)
[2017-07-20 08:21] LABS: ALBUMIN 2.7 g/dl (3.4-5.0); ANION GAP 10 (8-16); BILIRUBIN,TOTAL 0.9 mg/dL (0.2-1.0); BLOOD UREA NITROGEN 103 mg/dL (7-18); CHLORIDE 104 mmol/L (98-107); CO2 23 mmol/L (21-32); CREATININE 3.2 mg/dL (0.7-1.3); POTASSIUM 4.7 mmol/L (3.5-5.1); SGOT/AST 22 U/L (15-37); SGPT/ALT 27 U/L (12-78); SODIUM 137 mmol/L (136-145); TOT PROT 7.4 g/dl (6.4-8.2)
[2017-07-20 08:22] LABS: ALK PHOS 95 U/L (45-117)
--- NOTE | 2017-07-20 08:53 | PN ---
Progress Note, Physician Chief Complaint: Alert No new complaints No further sig nasal bleeding - Current Medication List Current Medications: Active Medications Acetaminophen (Tylenol -) 650 mg PO Q8H PRN PRN Reason: FEVER Last Admin: 07/20/17 06:24 Dose: 650 mg Aspirin (Asa -) 81 mg PO DAILY [facility] Atenolol (Tenormin -) 100 mg PO BID [facility] Last Admin: 07/19/17 22:02 Dose: 100 mg Atorvastatin Calcium (Lipitor -) 80 mg PO HS [facility] Last Admin: 07/19/17 21:58 Dose: 80 mg Bacitracin (Bacitracin -) 1 applic TP DAILY [facility] Last Admin: 07/19/17 09:59 Dose: 1 applic Colchicine (Colcrys -) 0.6 mg PO DAILY [facility] Last Admin: 07/19/17 09:57 Dose: 0.6 mg Collagenase (Santyl -) 1 applic TP DAILY [facility] Last Admin: 07/19/17 10:07 Dose: 1 applic Furosemide (Lasix Injection -) 80 mg IVPUSH DAILY [facility] Last Admin: 07/19/17 09:58 Dose: 80 mg Glipizide (Glucotrol Xl -) 10 mg PO BID [facility] Last Admin: 07/19/17 21:59 Dose: 10 mg Heparin Sodium (Porcine) (Heparin -) 5,000 unit IVPUSH PRN PRN PRN Reason: HEPARIN PROTOCOL Last Admin: 07/19/17 08:49 Dose: 5,000 unit Heparin Sodium (Porcine) (Heparin -) 1,000 unit IVPUSH PRN PRN PRN Reason: HEPARIN PROTOCOL Last Admin: 07/19/17 22:29 Dose: 1,000 unit Heparin Sodium (Porcine) 25, (000 unit/ Sodium Chloride) 500 mls @ 22 mls/hr IV TITR NEIL; 1,100 UNIT/HR PRN Reason: Protocol Last Admin: 07/19/17 22:29 Dose: 1,700 unit/hr, 34 mls/hr Vancomycin HCl 1,000 mg/ (Dextrose) 250 mls @ 200 mls/hr IVPB Q24H [facility] PRN Reason: Protocol Last Admin: 07/19/17 18:15 Dose: 200 mls/hr Ceftazidime 1 gm/ Dextrose 50 mls @ 100 mls/hr IVPB Q8H-IV [facility] Last Admin: 07/20/17 02:38 Dose: 100 mls/hr Insulin Aspart (Novolog Vial Sliding Scale -) 1 vial SQ [facility] PRN Reason: Protocol Last Admin: 07/20/17 06:26 Dose: 6 units Insulin Detemir (Levemir Vial) 60 units SQ DAILY@0700 [facility] Last Admin: 07/20/17 06:26 Dose: 60 units Levothyroxine Sodium (Synthroid -) 100 mcg PO DAILY@0700 [facility] Last Admin: 07/20/17 06:24 Dose: 100 mcg Liraglutide (Victoza -) 1.8 mg SQ DAILY@0700 [facility] Last Admin: 07/20/17 06:47 Dose: 1.8 mg Oxycodone HCl (Roxicodone -) 10 mg PO [facility] Last Admin: 07/19/17 21:58 Dose: 10 mg - Objective Vital Signs: Vital Signs Temperature 97.2 F L 07/20/17 06:00 Pulse Rate 78 07/20/17 06:00 Respiratory Rate 20 07/20/17 06:00 Blood Pressure 126/72 07/20/17 06:00 O2 Sat by Pulse Oximetry (%) 94 L 07/19/17 21:00 Constitutional: Yes: No Distress, Calm HENT: Yes: Atraumatic Cardiovascular: Yes: Pulse Irregular Respiratory: Yes: Other (decreased basilar breath sounds) Gastrointestinal: Yes: Soft, Abdomen, Obese Edema: Yes Edema: LLE: 2+ (wrapped gauze), RLE: 2+ (wrapped gauze) Neurological: Yes: Alert, Oriented ...Motor Strength: WNL Labs: CBC, BMP 07/20/17 06:30 INR, PTT INR 1.32 (0.82-1.09) H 07/20/17 06:30 Laboratory Tests 07/20/17 07/20/17 06:30 06:30 WBC 8.0 Hgb 9.3 L Hct 27.8 L Plt Count 197 Sodium Pending Potassium Pending BUN Pending Creatinine Pending Assessment/Plan IMP: Fall ARF, acute on chronic RLE cellulitis Acute Gout Morbid obesity PHTN Chronic AF CAD s/p PCI Acute on chronic diastolic CHF REC: Lasix resumed, nephrology following: renal fxn slowly improving. Continue to hold UVALDO-I. Off xarelto, cont heparin gtts. Xarelto discontinued as GFR fell < 15 cc/min Resuming ASA 81mg daily today (h/o Coronary PCI)- held few days due to nasal bleeding
[2017-07-20 09:56] LABS: GLUCOSE,RANDOM 319 mg/dL (74-106)
[2017-07-20] MEDS: ASPIRIN 81 MG CHEWABLE TABLETS PO SCH (11:01)
[2017-07-20] MEDS: HEPARIN - 25,000 UNIT in SODIUM CHLORIDE 495 ML IV SCH ×2 (11:01→18:54)
[2017-07-20] MEDS: COLCHICINE 0.6 MG TABLET (FP) PO SCH (11:02)
[2017-07-20] MEDS: BACITRACIN 15 GM TUBE TOPICAL OINTMENT TP SCH (11:02)
[2017-07-20] MEDS: FUROSEMIDE 40 MG/4 ML INJECTABLE VIAL IVPUSH SCH (11:03)
[2017-07-20] MEDS: glipiZIDE-XL 10 MG TAB.ER.24 (FP) PO SCH ×2 (11:03→21:34)
[2017-07-20] MEDS: ATENOLOL 50 MG TABLET (FP) PO SCH ×2 (11:04→21:35)
[2017-07-20] MEDS: COLLAGENASE CLOSTRIDIUM HIST. 30 GRAMS TUBE TP SCH (11:15)
[2017-07-20] MEDS ORDERED: INSULIN (NOVOLOG) ASPART 100 UNITS/ML 10ML VIAL ONE ×2 (11:22→21:32)
--- NOTE | 2017-07-20 11:49 | PN ---
Progress Note, Physician History of Present Illness: patient still sob says he is ok but breathing is bothering him passing good amount of urine - Current Medication List Current Medications: Active Medications Acetaminophen (Tylenol -) 650 mg PO Q8H PRN PRN Reason: FEVER Last Admin: 07/20/17 06:24 Dose: 650 mg Aspirin (Asa -) 81 mg PO DAILY [facility] Last Admin: 07/20/17 11:01 Dose: 81 mg Atenolol (Tenormin -) 100 mg PO BID [facility] Last Admin: 07/20/17 11:04 Dose: 100 mg Atorvastatin Calcium (Lipitor -) 80 mg PO HS [facility] Last Admin: 07/19/17 21:58 Dose: 80 mg Bacitracin (Bacitracin -) 1 applic TP DAILY [facility] Last Admin: 07/20/17 11:02 Dose: 1 applic Colchicine (Colcrys -) 0.6 mg PO DAILY [facility] Last Admin: 07/20/17 11:02 Dose: 0.6 mg Collagenase (Santyl -) 1 applic TP DAILY [facility] Last Admin: 07/20/17 11:15 Dose: 1 applic Furosemide (Lasix Injection -) 80 mg IVPUSH DAILY [facility] Last Admin: 07/20/17 11:03 Dose: 80 mg Glipizide (Glucotrol Xl -) 10 mg PO BID [facility] Last Admin: 07/20/17 11:03 Dose: 10 mg Heparin Sodium (Porcine) (Heparin -) 5,000 unit IVPUSH PRN PRN PRN Reason: HEPARIN PROTOCOL Last Admin: 07/19/17 08:49 Dose: 5,000 unit Heparin Sodium (Porcine) (Heparin -) 1,000 unit IVPUSH PRN PRN PRN Reason: HEPARIN PROTOCOL Last Admin: 07/19/17 22:29 Dose: 1,000 unit Heparin Sodium (Porcine) 25, (000 unit/ Sodium Chloride) 500 mls @ 22 mls/hr IV TITR [facility]; 1,100 UNIT/HR PRN Reason: Protocol Last Admin: 07/20/17 11:01 Dose: Not Given Vancomycin HCl 1,000 mg/ (Dextrose) 250 mls @ 200 mls/hr IVPB Q24H [facility] PRN Reason: Protocol Last Admin: 07/19/17 18:15 Dose: 200 mls/hr Ceftazidime 1 gm/ Dextrose 50 mls @ 100 mls/hr IVPB Q8H-IV [facility] Last Admin: 07/20/17 11:00 Dose: 100 mls/hr Insulin Aspart (Novolog Vial Sliding Scale -) 1 vial SQ [facility] PRN Reason: Protocol Last Admin: 07/20/17 11:27 Dose: 8 units Insulin Detemir (Levemir Vial) 60 units SQ DAILY@0700 [facility] Last Admin: 07/20/17 06:26 Dose: 60 units Levothyroxine Sodium (Synthroid -) 100 mcg PO DAILY@0700 [facility] Last Admin: 07/20/17 06:24 Dose: 100 mcg Liraglutide (Victoza -) 1.8 mg SQ DAILY@0700 [facility] Last Admin: 07/20/17 06:47 Dose: 1.8 mg Oxycodone HCl (Roxicodone -) 10 mg PO [facility] Last Admin: 07/19/17 21:58 Dose: 10 mg - Objective Vital Signs: Vital Signs Temperature 97.2 F L 07/20/17 06:00 Pulse Rate 78 07/20/17 06:00 Respiratory Rate 20 07/20/17 06:00 Blood Pressure 126/72 07/20/17 06:00 O2 Sat by Pulse Oximetry (%) 94 L 07/19/17 21:00 Constitutional: Yes: Calm, Mild Distress Cardiovascular: Yes: S1, S2 Respiratory: Yes: On BiPap, On Nasal O2, Poor Air Entry Gastrointestinal: Yes: Soft, Distention Musculoskeletal: Yes: WNL Extremities: Yes: Other (swelling and erythema) Wound/Incision: Yes: Dressing Dry and Intact Neurological: Yes: Alert, Oriented Psychiatric: Yes: Alert, Oriented Labs: CBC, BMP 07/20/17 06:30 07/20/17 06:30 INR, PTT INR 1.32 (0.82-1.09) H 07/20/17 06:30 Assessment/Plan Problem List - Problems (1) Accident due to mechanical fall without injury Code(s): W19.XXXA - UNSPECIFIED FALL, INITIAL ENCOUNTER (2) Atrial fibrillation Code(s): I48.91 - UNSPECIFIED ATRIAL FIBRILLATION Qualifiers: Atrial fibrillation type: chronic Qualified Code(s): I48.2 - Chronic atrial fibrillation (3) CAD (coronary artery disease) Code(s): I25.10 - ATHSCL HEART DISEASE OF [place] CORONARY ARTERY W/O ANG PCTRS (4) CHF (congestive heart failure) Code(s): I50.9 - HEART FAILURE, UNSPECIFIED (5) DVT (deep venous thrombosis) Code(s): I82.409 - ACUTE EMBOLISM AND THOMBOS UNSP DEEP VN UNSP LOWER EXTREMITY Qualifiers: DVT location: lower extremity Affected thrombotic vein of extremity: femoral Chronicity: chronic Laterality: right Qualified Code(s): I82.511 - Chronic embolism and thrombosis of right femoral vein (6) Obesities, morbid Code(s): E66.01 - MORBID (SEVERE) OBESITY DUE TO EXCESS CALORIES (7) Pulmonary embolism Code(s): I26.99 - OTHER PULMONARY EMBOLISM WITHOUT ACUTE COR PULMONALE (8) Venous (peripheral) insufficiency Code(s): I87.2 - VENOUS INSUFFICIENCY (CHRONIC) (PERIPHERAL) (9) Sleep apnea Code(s): G47.30 - SLEEP APNEA, UNSPECIFIED (10) COPD (chronic obstructive pulmonary disease) Code(s): J44.9 - CHRONIC OBSTRUCTIVE PULMONARY DISEASE, UNSPECIFIED (11) Pulmonary HTN Code(s): I27.20 - PULMONARY HYPERTENSION, UNSPECIFIED (12) Dyspnea Code(s): R06.00 - DYSPNEA, UNSPECIFIED (13) Cellulitis Code(s): L03.90 - CELLULITIS, UNSPECIFIED 14) wound infection [address] ceftazidime continue vanco rest continue current mgmt rest as per primary will desescalte abx by wednesday
--- NOTE | 2017-07-20 12:26 | PN ---
Progress Note (short form) - Note Progress Note: No CP or SOB. No acute events overnight. Intake & Output 07/17/17 07/18/17 07/19/17 07/20/17 23:59 23:59 23:59 23:59 Intake Total 975 1940 1012 300 Output Total 400 1880 2150 Balance 575 60 -1138 300 Weight 465 lb 1 oz 460 lb 455 lb 6.4 oz 452 lb 6 oz Last Vital Signs Temp Pulse Resp BP Pulse Ox 97.2 F L 78 20 126/72 94 L 07/20/17 06:00 07/20/17 06:00 07/20/17 06:00 07/20/17 06:00 07/19/17 21:00 Active Medications Acetaminophen (Tylenol -) 650 mg PO Q8H PRN PRN Reason: FEVER Last Admin: 07/20/17 06:24 Dose: 650 mg Aspirin (Asa -) 81 mg PO DAILY [facility] Last Admin: 07/20/17 11:01 Dose: 81 mg Atenolol (Tenormin -) 100 mg PO BID [facility] Last Admin: 07/20/17 11:04 Dose: 100 mg Atorvastatin Calcium (Lipitor -) 80 mg PO HS [facility] Last Admin: 07/19/17 21:58 Dose: 80 mg Bacitracin (Bacitracin -) 1 applic TP DAILY [facility] Last Admin: 07/20/17 11:02 Dose: 1 applic Colchicine (Colcrys -) 0.6 mg PO DAILY [facility] Last Admin: 07/20/17 11:02 Dose: 0.6 mg Collagenase (Santyl -) 1 applic TP DAILY [facility] Last Admin: 07/20/17 11:15 Dose: 1 applic Furosemide (Lasix Injection -) 80 mg IVPUSH DAILY [facility] Last Admin: 07/20/17 11:03 Dose: 80 mg Glipizide (Glucotrol Xl -) 10 mg PO BID [facility] Last Admin: 07/20/17 11:03 Dose: 10 mg Heparin Sodium (Porcine) (Heparin -) 5,000 unit IVPUSH PRN PRN PRN Reason: HEPARIN PROTOCOL Last Admin: 07/19/17 08:49 Dose: 5,000 unit Heparin Sodium (Porcine) (Heparin -) 1,000 unit IVPUSH PRN PRN PRN Reason: HEPARIN PROTOCOL Last Admin: 04/23/18 22:29 Dose: 1,000 unit Heparin Sodium (Porcine) 25, (000 unit/ Sodium Chloride) 500 mls @ 22 mls/hr IV TITR NEIL; 1,100 UNIT/HR PRN Reason: Protocol Last Admin: 07/20/17 11:01 Dose: Not Given Vancomycin HCl 1,000 mg/ (Dextrose) 250 mls @ 200 mls/hr IVPB Q24H [facility] PRN Reason: Protocol Last Admin: 07/19/17 18:15 Dose: 200 mls/hr Ceftazidime 1 gm/ Dextrose 50 mls @ 100 mls/hr IVPB Q8H-IV [facility] Last Admin: 07/20/17 11:00 Dose: 100 mls/hr Insulin Aspart (Novolog Vial Sliding Scale -) 1 vial SQ ACHS [facility] PRN Reason: Protocol Last Admin: 07/20/17 11:27 Dose: 8 units Insulin Detemir (Levemir Vial) 60 units SQ DAILY@0700 [facility] Last Admin: 07/20/17 06:26 Dose: 60 units Levothyroxine Sodium (Synthroid -) 100 mcg PO DAILY@0700 [facility] Last Admin: 07/20/17 06:24 Dose: 100 mcg Liraglutide (Victoza -) 1.8 mg SQ DAILY@0700 [facility] Last Admin: 07/20/17 06:47 Dose: 1.8 mg Oxycodone HCl (Roxicodone -) 10 mg PO HS [facility] Last Admin: 07/19/17 21:58 Dose: 10 mg Constitutional: Yes: NAD Eyes: Yes: WNL HENT: Yes: WNL Neck: Yes: WNL Cardiovascular: Yes: Pulse Irregular, S1, S2 Respiratory: Yes: Diminished Gastrointestinal: Yes: Normal Bowel Sounds, Soft Extremities: Yes: WNL Edema: Yes Labs: Laboratory Results - last 24 hr 07/19/17 07/19/17 07/19/17 08:07 08:07 09:25 WBC Cancelled Corrected WBC (auto) Cancelled RBC Cancelled Hgb Cancelled Hct Cancelled MCV Cancelled MCH Cancelled MCHC Cancelled RDW Cancelled Plt Count Cancelled MPV Cancelled Absolute Neuts (auto) Cancelled Absolute Lymphs (auto) Cancelled Absolute Monos (auto) Cancelled Absolute Eos (auto) Cancelled Absolute Basos (auto) Cancelled Add Manual Diff Cancelled Total Counted 100 Neutrophils % Cancelled Neutrophils % (Manual) 78.2 Lymphocytes % Cancelled Lymphocytes % (Manual) 11.9 D Monocytes % Cancelled Monocytes % (Manual) 6 D Eosinophils % Cancelled Eosinophils % (Manual) 2.9 Basophils % Cancelled Basophils % (Manual) 1.2 Normal RBC Morphology Cancelled PT with INR INR PTT (Actin FS) Sodium 139 Potassium 4.8 Chloride 108 H Carbon Dioxide 22 Anion Gap 9 BUN 110 H* Creatinine 3.6 H Creat Clearance w eGFR 17.27 POC Glucometer Random Glucose 161 H Calcium 8.1 L Magnesium Cancelled 2.3 D Total Bilirubin 0.9 D AST 18 ALT 22 Alkaline Phosphatase 85 Total Protein 7.3 Albumin 2.7 L Vancomycin Pre-Dose 07/19/17 07/19/17 07/19/17 15:30 15:30 17:30 WBC Corrected WBC (auto) RBC Hgb Hct MCV MCH MCHC RDW Plt Count MPV Absolute Neuts (auto) Absolute Lymphs (auto) Absolute Monos (auto) Absolute Eos (auto) Absolute Basos (auto) Add Manual Diff Total Counted Neutrophils % Neutrophils % (Manual) Lymphocytes % Lymphocytes % (Manual) Monocytes % Monocytes % (Manual) Eosinophils % Eosinophils % (Manual) Basophils % Basophils % (Manual) Normal RBC Morphology PT with INR INR PTT (Actin FS) 43.0 H Sodium Potassium Chloride Carbon Dioxide Anion Gap BUN Creatinine Creat Clearance w eGFR POC Glucometer 318 Random Glucose Calcium Magnesium Total Bilirubin AST ALT Alkaline Phosphatase Total Protein Albumin Vancomycin Pre-Dose 13.740 H D 07/19/17 07/19/17 07/20/17 21:00 21:02 03:45 WBC Corrected WBC (auto) RBC Hgb Hct MCV MCH MCHC RDW Plt Count MPV Absolute Neuts (auto) Absolute Lymphs (auto) Absolute Monos (auto) Absolute Eos (auto) Absolute Basos (auto) Add Manual Diff Total Counted Neutrophils % Neutrophils % (Manual) Lymphocytes % Lymphocytes % (Manual) Monocytes % Monocytes % (Manual) Eosinophils % Eosinophils % (Manual) Basophils % Basophils % (Manual) Normal RBC Morphology PT with INR INR PTT (Actin FS) 41.2 H 51.0 H Sodium Potassium Chloride Carbon Dioxide Anion Gap BUN Creatinine Creat Clearance w eGFR POC Glucometer 431 Random Glucose Calcium Magnesium Total Bilirubin AST ALT Alkaline Phosphatase Total Protein Albumin Vancomycin Pre-Dose 07/20/17 07/20/17 07/20/17 06:00 06:30 06:30 WBC 8.0 Corrected WBC (auto) RBC 2.89 L Hgb 9.3 L Hct 27.8 L MCV 96.0 MCH 32.0 MCHC 33.4 RDW 16.7 H Plt Count 197 MPV 8.2 Absolute Neuts (auto) Absolute Lymphs (auto) Absolute Monos (auto) Absolute Eos (auto) Absolute Basos (auto) Add Manual Diff Total Counted Neutrophils % Neutrophils % (Manual) Lymphocytes % Lymphocytes % (Manual) Monocytes % Monocytes % (Manual) Eosinophils % Eosinophils % (Manual) Basophils % Basophils % (Manual) Normal RBC Morphology PT with INR 14.90 H INR 1.32 H PTT (Actin FS) Sodium Potassium Chloride Carbon Dioxide Anion Gap BUN Creatinine Creat Clearance w eGFR POC Glucometer 317 Random Glucose Calcium Magnesium Total Bilirubin AST ALT Alkaline Phosphatase Total Protein Albumin Vancomycin Pre-Dose 07/20/17 07/20/17 06:30 11:14 WBC Corrected WBC (auto) RBC Hgb Hct MCV MCH MCHC RDW Plt Count MPV Absolute Neuts (auto) Absolute Lymphs (auto) Absolute Monos (auto) Absolute Eos (auto) Absolute Basos (auto) Add Manual Diff Total Counted Neutrophils % Neutrophils % (Manual) Lymphocytes % Lymphocytes % (Manual) Monocytes % Monocytes % (Manual) Eosinophils % Eosinophils % (Manual) Basophils % Basophils % (Manual) Normal RBC Morphology PT with INR INR PTT (Actin FS) Sodium 137 Potassium 4.7 Chloride 104 Carbon Dioxide 23 Anion Gap 10 BUN 103 H Creatinine 3.2 H Creat Clearance w eGFR 19.78 POC Glucometer 390 Random Glucose 319 H* D Calcium 8.0 L Magnesium Total Bilirubin 0.9 AST 22 D ALT 27 D Alkaline Phosphatase 95 Total Protein 7.4 Albumin 2.7 L Vancomycin Pre-Dose Problem List - Problems (1) Accident due to mechanical fall without injury Code(s): W19.XXXA - UNSPECIFIED FALL, INITIAL ENCOUNTER (2) Atrial fibrillation Code(s): I48.91 - UNSPECIFIED ATRIAL FIBRILLATION Qualifiers: Atrial fibrillation type: chronic Qualified Code(s): I48.2 - Chronic atrial fibrillation (3) CAD (coronary artery disease) Code(s): I25.10 - ATHSCL HEART DISEASE OF [place] CORONARY ARTERY W/O ANG PCTRS (4) CHF (congestive heart failure) Code(s): I50.9 - HEART FAILURE, UNSPECIFIED (5) DVT (deep venous thrombosis) Code(s): I82.409 - ACUTE EMBOLISM AND THOMBOS UNSP DEEP VN UNSP LOWER EXTREMITY Qualifiers: DVT location: lower extremity Affected thrombotic vein of extremity: femoral Chronicity: chronic Laterality: right Qualified Code(s): I82.511 - Chronic embolism and thrombosis of right femoral vein (6) Obesities, morbid Code(s): E66.01 - MORBID (SEVERE) OBESITY DUE TO EXCESS CALORIES (7) Pulmonary embolism Code(s): I26.99 - OTHER PULMONARY EMBOLISM WITHOUT ACUTE COR PULMONALE (8) Venous (peripheral) insufficiency Code(s): I87.2 - VENOUS INSUFFICIENCY (CHRONIC) (PERIPHERAL) (9) Sleep apnea Code(s): G47.30 - SLEEP APNEA, UNSPECIFIED (10) COPD (chronic obstructive pulmonary disease) Code(s): J44.9 - CHRONIC OBSTRUCTIVE PULMONARY DISEASE, UNSPECIFIED (11) Pulmonary HTN Code(s): I27.20 - PULMONARY HYPERTENSION, UNSPECIFIED (12) Dyspnea Code(s): R06.00 - DYSPNEA, UNSPECIFIED (13) Cellulitis Code(s): L03.90 - CELLULITIS, UNSPECIFIED Assessment/Plan IMP CELLULITIS S/P MECHANICAL FALL CHF ASHD S/P PCI OSAS AFIB H/O DVT/PE PULMONARY HTN MORBID OBESITY CKD PLAN LASIX O2 ABX INHALED BRONCHODILATORS BIPAP AT NIGHT AC DR ESCOBAR
[2017-07-20] MEDS ORDERED: predniSONE 20 MG TABLET (UD) PO ONE (12:49)
--- NOTE | 2017-07-20 12:56 | PN ---
Progress Note (short form) - Note Progress Note: LE pain improved after a dose of Prednisone and Colchicine yesterday, Receiving Ceftaz/Vanco IV C/o SOB. Vital Signs Temp 97.2 F L 07/20/17 06:00 Pulse 78 07/20/17 06:00 Resp 20 07/20/17 06:00 BP 126/72 07/20/17 06:00 Pulse Ox 94 L 07/19/17 21:00 Intake & Output 07/19/17 07/20/17 07/20/17 23:59 11:59 23:59 Intake Total 550 300 Output Total 400 Balance 150 300 Weight 452 lb 6 oz Intake: IVPB 350 100 Oral 200 200 Output: Urine 400 Void 400 Other: Voiding Method Urinal Weight Measurement [facility] Awake, alert, multiple ecchimoses. Neck-no JVD Lungs-B/L few crackles. Heart S!S2 irregular, irregular Abdomen obese, soft, active BS LE stasis changes, edema, Left ankle wounds Potassium improved-4.7 Current Active Problems Problem Status Onset Accident due to mechanical fall without injury Acute Acute renal failure (ARF) Acute Acute renal insufficiency Acute CKD (chronic kidney disease) Acute COPD (chronic obstructive pulmonary disease) Acute Cellulitis Acute Dyspnea Acute Hyperkalemia, diminished renal excretion Acute Pain of left lower leg Acute Pulmonary HTN Acute Sleep apnea Acute Laboratory Results - last 24 hr 07/19/17 07/19/17 07/19/17 08:07 08:07 09:25 WBC Cancelled Corrected WBC (auto) Cancelled RBC Cancelled Hgb Cancelled Hct Cancelled MCV Cancelled MCH Cancelled MCHC Cancelled RDW Cancelled Plt Count Cancelled MPV Cancelled Absolute Neuts (auto) Cancelled Absolute Lymphs (auto) Cancelled Absolute Monos (auto) Cancelled Absolute Eos (auto) Cancelled Absolute Basos (auto) Cancelled Add Manual Diff Cancelled Total Counted 100 Neutrophils % Cancelled Neutrophils % (Manual) 78.2 Lymphocytes % Cancelled Lymphocytes % (Manual) 11.9 D Monocytes % Cancelled Monocytes % (Manual) 6 D Eosinophils % Cancelled Eosinophils % (Manual) 2.9 Basophils % Cancelled Basophils % (Manual) 1.2 Normal RBC Morphology Cancelled PT with INR INR PTT (Actin FS) Sodium 139 Potassium 4.8 Chloride 108 H Carbon Dioxide 22 Anion Gap 9 BUN 110 H* Creatinine 3.6 H Creat Clearance w eGFR 17.27 POC Glucometer Random Glucose 161 H Calcium 8.1 L Magnesium Cancelled 2.3 D Total Bilirubin 0.9 D AST 18 ALT 22 Alkaline Phosphatase 85 Total Protein 7.3 Albumin 2.7 L Vancomycin Pre-Dose 07/19/17 07/19/17 07/19/17 15:30 15:30 17:30 WBC Corrected WBC (auto) RBC Hgb Hct MCV MCH MCHC RDW Plt Count MPV Absolute Neuts (auto) Absolute Lymphs (auto) Absolute Monos (auto) Absolute Eos (auto) Absolute Basos (auto) Add Manual Diff Total Counted Neutrophils % Neutrophils % (Manual) Lymphocytes % Lymphocytes % (Manual) Monocytes % Monocytes % (Manual) Eosinophils % Eosinophils % (Manual) Basophils % Basophils % (Manual) Normal RBC Morphology PT with INR INR PTT (Actin FS) 43.0 H Sodium Potassium Chloride Carbon Dioxide Anion Gap BUN Creatinine Creat Clearance w eGFR POC Glucometer 318 Random Glucose Calcium Magnesium Total Bilirubin AST ALT Alkaline Phosphatase Total Protein Albumin Vancomycin Pre-Dose 13.740 H D 07/19/17 07/19/17 07/20/17 21:00 21:02 03:45 WBC Corrected WBC (auto) RBC Hgb Hct MCV MCH MCHC RDW Plt Count MPV Absolute Neuts (auto) Absolute Lymphs (auto) Absolute Monos (auto) Absolute Eos (auto) Absolute Basos (auto) Add Manual Diff Total Counted Neutrophils % Neutrophils % (Manual) Lymphocytes % Lymphocytes % (Manual) Monocytes % Monocytes % (Manual) Eosinophils % Eosinophils % (Manual) Basophils % Basophils % (Manual) Normal RBC Morphology PT with INR INR PTT (Actin FS) 41.2 H 51.0 H Sodium Potassium Chloride Carbon Dioxide Anion Gap BUN Creatinine Creat Clearance w eGFR POC Glucometer 431 Random Glucose Calcium Magnesium Total Bilirubin AST ALT Alkaline Phosphatase Total Protein Albumin Vancomycin Pre-Dose 07/20/17 07/20/17 07/20/17 06:00 06:30 06:30 WBC 8.0 Corrected WBC (auto) RBC 2.89 L Hgb 9.3 L Hct 27.8 L MCV 96.0 MCH 32.0 MCHC 33.4 RDW 16.7 H Plt Count 197 MPV 8.2 Absolute Neuts (auto) Absolute Lymphs (auto) Absolute Monos (auto) Absolute Eos (auto) Absolute Basos (auto) Add Manual Diff Total Counted Neutrophils % Neutrophils % (Manual) Lymphocytes % Lymphocytes % (Manual) Monocytes % Monocytes % (Manual) Eosinophils % Eosinophils % (Manual) Basophils % Basophils % (Manual) Normal RBC Morphology PT with INR 14.90 H INR 1.32 H PTT (Actin FS) Sodium Potassium Chloride Carbon Dioxide Anion Gap BUN Creatinine Creat Clearance w eGFR POC Glucometer 317 Random Glucose Calcium Magnesium Total Bilirubin AST ALT Alkaline Phosphatase Total Protein Albumin Vancomycin Pre-Dose 07/20/17 07/20/17 06:30 11:14 WBC Corrected WBC (auto) RBC Hgb Hct MCV MCH MCHC RDW Plt Count MPV Absolute Neuts (auto) Absolute Lymphs (auto) Absolute Monos (auto) Absolute Eos (auto) Absolute Basos (auto) Add Manual Diff Total Counted Neutrophils % Neutrophils % (Manual) Lymphocytes % Lymphocytes % (Manual) Monocytes % Monocytes % (Manual) Eosinophils % Eosinophils % (Manual) Basophils % Basophils % (Manual) Normal RBC Morphology PT with INR INR PTT (Actin FS) Sodium 137 Potassium 4.7 Chloride 104 Carbon Dioxide 23 Anion Gap 10 BUN 103 H Creatinine 3.2 H Creat Clearance w eGFR 19.78 POC Glucometer 390 Random Glucose 319 H* D Calcium 8.0 L Magnesium Total Bilirubin 0.9 AST 22 D ALT 27 D Alkaline Phosphatase 95 Total Protein 7.4 Albumin 2.7 L Vancomycin Pre-Dose Plan Start Uloric PO. Prednisone 20 mg X1 today, Avoid NSAIDS for Gout due to renal failure IV ABX Iv Lasix Follow cmp Problem List - Problems (1) Atrial fibrillation Code(s): I48.91 - UNSPECIFIED ATRIAL FIBRILLATION Qualifiers: Atrial fibrillation type: chronic Qualified Code(s): I48.2 - Chronic atrial fibrillation (2) CHF (congestive heart failure) Code(s): I50.9 - HEART FAILURE, UNSPECIFIED (3) Cellulitis of right leg Code(s): L03.115 - CELLULITIS OF RIGHT LOWER LIMB (4) Diabetes Code(s): E11.9 - TYPE 2 DIABETES MELLITUS WITHOUT COMPLICATIONS Qualifiers: Diabetes mellitus type: type 2 Diabetes mellitus complication status: with circulatory complication (5) Acute renal failure (ARF) Code(s): N17.9 - ACUTE KIDNEY FAILURE, UNSPECIFIED (6) Acute renal insufficiency Code(s): N28.9 - DISORDER OF KIDNEY AND URETER, UNSPECIFIED
[2017-07-20] MEDS: VANCOMYCIN 1,000 MG in DEXTROSE 5%-WATER - 250 ML IVPB SCH (15:30)
[2017-07-20] MEDS ORDERED: FUROSEMIDE 40 MG/4 ML INJECTABLE VIAL IVPUSH ONE (16:58)
--- NOTE | 2017-07-20 16:58 | PN ---
Progress Note, Physician History of Present Illness: Pt seen and examined at bedside. He is awake and alert. He feels that his edema is improving and he can move his legs a little better. - Current Medication List Current Medications: Active Medications Acetaminophen (Tylenol -) 650 mg PO Q8H PRN PRN Reason: FEVER Last Admin: 07/20/17 16:18 Dose: 650 mg Aspirin (Asa -) 81 mg PO DAILY [facility] Last Admin: 07/20/17 11:01 Dose: 81 mg Atenolol (Tenormin -) 100 mg PO BID [facility] Last Admin: 07/20/17 11:04 Dose: 100 mg Atorvastatin Calcium (Lipitor -) 80 mg PO HS [facility] Last Admin: 07/19/17 21:58 Dose: 80 mg Bacitracin (Bacitracin -) 1 applic TP DAILY [facility] Last Admin: 07/20/17 11:02 Dose: 1 applic Colchicine (Colcrys -) 0.6 mg PO DAILY [facility] Last Admin: 07/20/17 11:02 Dose: 0.6 mg Collagenase (Santyl -) 1 applic TP DAILY [facility] Last Admin: 07/20/17 11:15 Dose: 1 applic Febuxostat (Uloric -) 40 mg PO DAILY [facility] Furosemide (Lasix Injection -) 80 mg IVPUSH DAILY [facility] Last Admin: 07/20/17 11:03 Dose: 80 mg Glipizide (Glucotrol Xl -) 10 mg PO BID [facility] Last Admin: 07/20/17 11:03 Dose: 10 mg Heparin Sodium (Porcine) (Heparin -) 5,000 unit IVPUSH PRN PRN PRN Reason: HEPARIN PROTOCOL Last Admin: 07/19/17 08:49 Dose: 5,000 unit Heparin Sodium (Porcine) (Heparin -) 1,000 unit IVPUSH PRN PRN PRN Reason: HEPARIN PROTOCOL Last Admin: 07/19/17 22:29 Dose: 1,000 unit Heparin Sodium (Porcine) 25, (000 unit/ Sodium Chloride) 500 mls @ 22 mls/hr IV TITR [facility]; 1,100 UNIT/HR PRN Reason: Protocol Last Admin: 07/20/17 11:01 Dose: Not Given Vancomycin HCl 1,000 mg/ (Dextrose) 250 mls @ 200 mls/hr IVPB Q24H [facility] PRN Reason: Protocol Last Admin: 07/20/17 15:30 Dose: 200 mls/hr Ceftazidime 1 gm/ Dextrose 50 mls @ 100 mls/hr IVPB Q8H-IV [facility] Last Admin: 07/20/17 11:00 Dose: 100 mls/hr Insulin Aspart (Novolog Vial Sliding Scale -) 1 vial SQ [facility] PRN Reason: Protocol Last Admin: 07/20/17 11:27 Dose: 8 units Insulin Detemir (Levemir Vial) 60 units SQ DAILY@0700 [facility] Last Admin: 07/20/17 06:26 Dose: 60 units Levothyroxine Sodium (Synthroid -) 100 mcg PO DAILY@0700 [facility] Last Admin: 07/20/17 06:24 Dose: 100 mcg Liraglutide (Victoza -) 1.8 mg SQ DAILY@0700 [facility] Last Admin: 07/20/17 06:47 Dose: 1.8 mg Oxycodone HCl (Roxicodone -) 10 mg PO [facility] Last Admin: 07/19/17 21:58 Dose: 10 mg - Objective Vital Signs: Vital Signs Temperature 98.0 F 07/20/17 14:00 Pulse Rate 93 H 07/20/17 14:00 Respiratory Rate 22 07/20/17 14:00 Blood Pressure 120/73 07/20/17 14:00 O2 Sat by Pulse Oximetry (%) 94 L 07/19/17 21:00 Constitutional: Yes: Calm Eyes: Yes: Conjunctiva Clear HENT: Yes: Atraumatic Neck: Yes: Supple Cardiovascular: Yes: S1, S2 Respiratory: Yes: On BiPap Gastrointestinal: Yes: Normal Bowel Sounds, Soft, Abdomen, Obese Genitourinary: Yes: WNL Musculoskeletal: Yes: WNL Edema: Yes Edema: LLE: 2+, RLE: 2+ Neurological: Yes: Oriented Psychiatric: Yes: Oriented Labs: CBC, BMP 07/20/17 06:30 07/20/17 06:30 INR, PTT INR 1.32 (0.82-1.09) H 07/20/17 06:30 Problem List - Problems (1) CKD (chronic kidney disease) Code(s): N18.9 - CHRONIC KIDNEY DISEASE, UNSPECIFIED (2) Accident due to mechanical fall without injury Code(s): W19.XXXA - UNSPECIFIED FALL, INITIAL ENCOUNTER (3) Acute renal failure (ARF) Code(s): N17.9 - ACUTE KIDNEY FAILURE, UNSPECIFIED Assessment/Plan Current Medications Generic Name Dose Route Start Last Admin Trade Name Freq PRN Reason Stop Dose Admin Acetaminophen 650 mg 07/12/17 08:03 07/20/17 16:18 Tylenol - PO 650 mg Q8H PRN Administration FEVER Aspirin 81 mg 07/20/17 10:00 07/20/17 11:01 Asa - PO 81 mg DAILY [facility] Administration Atenolol 100 mg 07/12/17 10:00 07/20/17 11:04 Tenormin - PO 100 mg BID [facility] Administration Atorvastatin Calcium 80 mg 07/12/17 22:00 07/19/17 21:58 Lipitor - PO 80 mg HS [facility] Administration Bacitracin 1 applic 07/14/17 17:15 07/20/17 11:02 Bacitracin - TP 1 applic DAILY [facility] Administration Colchicine 0.6 mg 07/19/17 10:00 07/20/17 11:02 Colcrys - PO 0.6 mg DAILY [facility] Administration Collagenase 1 applic 07/12/17 10:00 07/20/17 11:15 Santyl - TP 1 applic DAILY [facility] Administration Febuxostat 40 mg 07/21/17 10:00 Uloric - PO DAILY [facility] Furosemide 80 mg 07/16/17 11:00 07/20/17 11:03 Lasix Injection - IVPUSH 80 mg DAILY [facility] Administration Glipizide 10 mg 07/12/17 10:00 07/20/17 11:03 Glucotrol Xl - PO 10 mg BID [facility] Administration Heparin Sodium (Porcine) 5,000 unit 07/17/17 12:00 07/19/17 08:49 Heparin - IVPUSH 5,000 unit PRN PRN Administration HEPARIN PROTOCOL Heparin Sodium (Porcine) 1,000 unit 07/17/17 12:00 07/19/17 22:29 Heparin - IVPUSH 1,000 unit PRN PRN Administration HEPARIN PROTOCOL Heparin Sodium (Porcine) 25, 500 mls @ 22 mls/hr 07/18/17 09:00 07/20/17 11: 01 000 unit/ Sodium Chloride IV Not Given TITR NEIL Protocol 1,100 UNIT/HR Vancomycin HCl 1,000 mg/ 250 mls @ 200 mls/hr 07/17/17 15:00 07/20/17 15:30 Dextrose IVPB 200 mls/hr Q24H [facility] Administration Protocol Ceftazidime 1 gm/ Dextrose 50 mls @ 100 mls/hr 07/19/17 13:45 07/20/17 11:00 IVPB 100 mls/hr Q8H-IV [facility] Administration Insulin Aspart 1 vial 07/14/17 11:15 07/20/17 11:27 Novolog Vial Sliding Scale - SQ 8 units ACHS [facility] Administration Protocol Insulin Detemir 60 units 07/15/17 08:45 07/20/17 06:26 Levemir Vial SQ 60 units DAILY@0700 [facility] Administration Levothyroxine Sodium 100 mcg 07/12/17 07:00 07/20/17 06:24 Synthroid - PO 100 mcg DAILY@0700 [facility] Administration Liraglutide 1.8 mg 07/13/17 07:00 07/20/17 06:47 Victoza - SQ 1.8 mg DAILY@0700 [facility] Administration Oxycodone HCl 10 mg 07/12/17 22:00 07/19/17 21:58 Roxicodone - PO 10 mg HS [facility] Administration Impression 1. CKD 2. KRUNAL 3. volume overload 4. obesity 5. CAD 6. cellulitis 7. s/p fall 8. a-fib 9. DM 10. hypothyroidism 11. HLD 12. CHF Plan - will give an additional 40 mg IV of lasix - volume status slowly improving - repeat labs in am - renal function is improving as well - keep jasmyne on hold - monitor vanco levels - will follow Dr Quiroz
[2017-07-20] MEDS ORDERED: INSULIN (LEVEMIR) 100 UNITS/ML UNITS SQ ONE (18:30)
[2017-07-20] MEDS: ATORVASTATIN CA 80 MG TABLET (FP) PO SCH (21:34)
[2017-07-20] MEDS: oxyCODONE HCL 5 MG TABLET PO SCH (21:34)
[2017-07-21] MEDS: CEFTAZIDIME PENTAHYDRATE 1 GM in DEXTROSE 5%-WATER - 50 ML IVPB SCH ×3 (02:42→17:47)
[2017-07-21] MEDS ORDERED: PT OWN MED DRAWER 7, Y5N ONE (05:56)
[2017-07-21] MEDS: INSULIN SLIDING SCALE (NOVOLOG) 1 VIAL SQ SCH ×4 (06:34→22:12)
[2017-07-21] MEDS: INSULIN (LEVEMIR) 100 UNITS/ML UNITS SQ SCH (06:34)
[2017-07-21] MEDS: LEVOTHYROXINE NA 100 MCG TABLET (FP) PO SCH (06:35)
[2017-07-21] MEDS: LIRAGLUTIDE 0.6 MG/0.1 ML PEN.INJCTR SQ SCH (06:35)
--- NOTE | 2017-07-21 06:49 | HOSP ---
Subjective - Review of Symptoms Subjective: Called for BS of 451 - CMP already ordered for this am - On Sliding scale and set to recieve his Levemir this AM as per RN - Recheck FS in one hour Physical Examination Vital Signs: Vital Signs Temperature 97.5 F L 07/21/17 06:16 Pulse Rate 90 07/21/17 06:16 Respiratory Rate 19 07/21/17 06:16 Blood Pressure 132/90 07/21/17 06:16 O2 Sat by Pulse Oximetry (%) 98 07/20/17 21:00 Labs: CBC, BMP 07/20/17 06:30 07/20/17 06:30
[2017-07-21] MEDS ORDERED: INSULIN (LEVEMIR) 100 UNITS/ML UNITS SQ ONE ×2 (06:54→11:00)
[2017-07-21 08:04] LABS: HEMATOCRIT 29.2 % (35.4-49); HEMOGLOBIN 9.4 GM/dL (11.7-16.9); MCH 31.3 pg (25.7-33.7); MCHC 32.2 g/dl (32.0-35.9); MEAN PLT VOLUME 8.5 fl (7.5-11.1); PLATELET COUNT 213 K/MM3 (134-434); RBC 3.01 M/mm3 (4.00-5.60); RDW 17.1 % (11.9-15.9); WHITE BLOOD COUNT 11.7 K/mm3 (4.0-10.0)
[2017-07-21] MEDS: HEPARIN - 25,000 UNIT in SODIUM CHLORIDE 495 ML IV SCH ×2 (09:00→18:32)
[2017-07-21] MEDS: HEPARIN NA (PORCINE) 5,000 UNITS/ML 1ML VIAL IVPUSH PRN ×2 (09:00→18:31)
--- NOTE | 2017-07-21 09:04 | PN ---
Progress Note, Physician Chief Complaint: no new complaints - Current Medication List Current Medications: Active Medications Acetaminophen (Tylenol -) 650 mg PO Q8H PRN PRN Reason: FEVER Last Admin: 07/20/17 16:18 Dose: 650 mg Aspirin (Asa -) 81 mg PO DAILY [facility] Last Admin: 07/20/17 11:01 Dose: 81 mg Atenolol (Tenormin -) 100 mg PO BID [facility] Last Admin: 07/20/17 21:35 Dose: 100 mg Atorvastatin Calcium (Lipitor -) 80 mg PO HS [facility] Last Admin: 07/20/17 21:34 Dose: 80 mg Bacitracin (Bacitracin -) 1 applic TP DAILY [facility] Last Admin: 07/20/17 11:02 Dose: 1 applic Colchicine (Colcrys -) 0.6 mg PO DAILY [facility] Last Admin: 07/20/17 11:02 Dose: 0.6 mg Collagenase (Santyl -) 1 applic TP DAILY [facility] Last Admin: 07/20/17 11:15 Dose: 1 applic Febuxostat (Uloric -) 40 mg PO DAILY [facility] Furosemide (Lasix Injection -) 80 mg IVPUSH DAILY [facility] Last Admin: 07/20/17 11:03 Dose: 80 mg Glipizide (Glucotrol Xl -) 10 mg PO BID [facility] Last Admin: 07/20/17 21:34 Dose: 10 mg Heparin Sodium (Porcine) (Heparin -) 5,000 unit IVPUSH PRN PRN PRN Reason: HEPARIN PROTOCOL Last Admin: 07/19/17 08:49 Dose: 5,000 unit Heparin Sodium (Porcine) (Heparin -) 1,000 unit IVPUSH PRN PRN PRN Reason: HEPARIN PROTOCOL Last Admin: 07/21/17 09:00 Dose: 1,000 unit Heparin Sodium (Porcine) 25, (000 unit/ Sodium Chloride) 500 mls @ 22 mls/hr IV TITR NEIL; 1,100 UNIT/HR PRN Reason: Protocol Last Admin: 07/21/17 09:00 Dose: 1,800 unit/hr, 36 mls/hr Vancomycin HCl 1,000 mg/ (Dextrose) 250 mls @ 200 mls/hr IVPB Q24H NEIL PRN Reason: Protocol Last Admin: 07/20/17 15:30 Dose: 200 mls/hr Ceftazidime 1 gm/ Dextrose 50 mls @ 100 mls/hr IVPB Q8H-IV [facility] Last Admin: 07/21/17 02:42 Dose: 100 mls/hr Insulin Aspart (Novolog Vial Sliding Scale -) 1 vial SQ ACHS [facility] PRN Reason: Protocol Last Admin: 07/21/17 06:34 Dose: 10 units Insulin Detemir (Levemir Vial) 60 units SQ DAILY@0700 [facility] Last Admin: 07/21/17 06:34 Dose: 60 units Levothyroxine Sodium (Synthroid -) 100 mcg PO DAILY@0700 [facility] Last Admin: 07/21/17 06:35 Dose: 100 mcg Liraglutide (Victoza -) 1.8 mg SQ DAILY@0700 [facility] Last Admin: 07/21/17 06:35 Dose: 1.8 mg Oxycodone HCl (Roxicodone -) 10 mg PO [facility] Last Admin: 07/20/17 21:34 Dose: 10 mg - Objective Vital Signs: Vital Signs Temperature 97.9 F 07/21/17 08:50 Pulse Rate 88 07/21/17 08:50 Respiratory Rate 22 07/21/17 08:50 Blood Pressure 106/58 07/21/17 08:50 O2 Sat by Pulse Oximetry (%) 95 07/21/17 08:47 Constitutional: Yes: No Distress, Calm Eyes: Yes: Conjunctiva Clear Neck: Yes: Trachea Midline Cardiovascular: Yes: Pulse Irregular Respiratory: Yes: CTA Bilaterally Gastrointestinal: Yes: Soft, Abdomen, Obese Edema: Yes Edema: LLE: 1+, RLE: 1+ Neurological: Yes: Alert, Oriented ...Motor Strength: WNL Labs: CBC, BMP 07/21/17 07:40 INR, PTT INR 1.32 (0.82-1.09) H 07/20/17 06:30 Laboratory Tests 07/21/17 07/21/17 07/21/17 07:40 07:40 07:40 WBC 11.7 H D Hgb 9.4 L Plt Count 213 PTT (Actin FS) 40.3 H Sodium Pending Potassium Pending Chloride Pending Carbon Dioxide Pending Creatinine Pending Assessment/Plan IMP: Fall ARF, acute on chronic RLE cellulitis Acute Gout Morbid obesity PHTN Chronic AF CAD s/p PCI Acute on chronic diastolic CHF REC: Lasix resumed, nephrology following: renal fxn slowly improving. Continue to hold UVALDO-I. Off xarelto, cont heparin gtts. Xarelto discontinued as GFR fell < 15 cc/min Resuming ASA 81mg daily today (h/o Coronary PCI)- held few days due to nasal bleeding
[2017-07-21 09:31] LABS: ALBUMIN 2.7 g/dl (3.4-5.0); ANION GAP 10 (8-16); BILIRUBIN,TOTAL 0.8 mg/dL (0.2-1.0); BLOOD UREA NITROGEN 102 mg/dL (7-18); CHLORIDE 105 mmol/L (98-107); CO2 23 mmol/L (21-32); POTASSIUM 4.5 mmol/L (3.5-5.1); SGOT/AST 29 U/L (15-37); SGPT/ALT 42 U/L (12-78); SODIUM 138 mmol/L (136-145); TOT PROT 7.5 g/dl (6.4-8.2)
[2017-07-21 09:32] LABS: ALK PHOS 90 U/L (45-117)
[2017-07-21 09:38] LABS: GLUCOSE,RANDOM 417 mg/dL (74-106)
[2017-07-21] MEDS: ASPIRIN 81 MG CHEWABLE TABLETS PO SCH (10:00)
[2017-07-21] MEDS: FUROSEMIDE 40 MG/4 ML INJECTABLE VIAL IVPUSH SCH ×2 (10:00→14:33)
[2017-07-21] MEDS: BACITRACIN 15 GM TUBE TOPICAL OINTMENT TP SCH (10:00)
[2017-07-21] MEDS: FEBUXOSTAT 40 MG TAB PO SCH (10:01)
[2017-07-21] MEDS: ATENOLOL 50 MG TABLET (FP) PO SCH ×2 (10:01→22:13)
[2017-07-21] MEDS: COLCHICINE 0.6 MG TABLET (FP) PO SCH (10:01)
[2017-07-21] MEDS: glipiZIDE-XL 10 MG TAB.ER.24 (FP) PO SCH ×2 (10:01→22:11)
[2017-07-21] MEDS: COLLAGENASE CLOSTRIDIUM HIST. 30 GRAMS TUBE TP SCH (10:02)
[2017-07-21] MEDS ORDERED: INSULIN (NOVOLOG) ASPART 100 UNITS/ML 10ML VIAL ONE ×2 (11:01→16:23)
--- NOTE | 2017-07-21 13:05 | PN ---
Progress Note, Physician History of Present Illness: Pt seen and examined at bedside. He is awake and alert. His blood sugar has been elevated. - Current Medication List Current Medications: Active Medications Acetaminophen (Tylenol -) 650 mg PO Q8H PRN PRN Reason: FEVER Last Admin: 07/20/17 16:18 Dose: 650 mg Aspirin (Asa -) 81 mg PO DAILY [facility] Last Admin: 07/21/17 10:00 Dose: 81 mg Atenolol (Tenormin -) 100 mg PO BID [facility] Last Admin: 07/21/17 10:01 Dose: 100 mg Atorvastatin Calcium (Lipitor -) 80 mg PO HS [facility] Last Admin: 07/20/17 21:34 Dose: 80 mg Bacitracin (Bacitracin -) 1 applic TP DAILY [facility] Last Admin: 07/21/17 10:00 Dose: 1 applic Colchicine (Colcrys -) 0.6 mg PO DAILY [facility] Last Admin: 07/21/17 10:01 Dose: 0.6 mg Collagenase (Santyl -) 1 applic TP DAILY [facility] Last Admin: 07/21/17 10:02 Dose: 1 applic Febuxostat (Uloric -) 40 mg PO DAILY [facility] Last Admin: 07/21/17 10:01 Dose: 40 mg Furosemide (Lasix Injection -) 80 mg IVPUSH DAILY [facility] Last Admin: 07/21/17 10:00 Dose: 80 mg Glipizide (Glucotrol Xl -) 10 mg PO BID [facility] Last Admin: 07/21/17 10:01 Dose: 10 mg Heparin Sodium (Porcine) (Heparin -) 5,000 unit IVPUSH PRN PRN PRN Reason: HEPARIN PROTOCOL Last Admin: 07/19/17 08:49 Dose: 5,000 unit Heparin Sodium (Porcine) (Heparin -) 1,000 unit IVPUSH PRN PRN PRN Reason: HEPARIN PROTOCOL Last Admin: 07/21/17 09:00 Dose: 1,000 unit Heparin Sodium (Porcine) 25, (000 unit/ Sodium Chloride) 500 mls @ 22 mls/hr IV TITR NEIL; 1,100 UNIT/HR PRN Reason: Protocol Last Admin: 07/21/17 09:00 Dose: 1,800 unit/hr, 36 mls/hr Vancomycin HCl 1,000 mg/ (Dextrose) 250 mls @ 200 mls/hr IVPB Q24H NEIL PRN Reason: Protocol Last Admin: 07/20/17 15:30 Dose: 200 mls/hr Ceftazidime 1 gm/ Dextrose 50 mls @ 100 mls/hr IVPB Q8H-IV [facility] Last Admin: 07/21/17 09:59 Dose: 100 mls/hr Insulin Aspart (Novolog Vial Sliding Scale -) 1 vial SQ ACHS [facility] PRN Reason: Protocol Last Admin: 07/21/17 11:06 Dose: 10 units Insulin Detemir (Levemir Vial) 80 units SQ DAILY@0700 [facility] Levothyroxine Sodium (Synthroid -) 100 mcg PO DAILY@0700 [facility] Last Admin: 07/21/17 06:35 Dose: 100 mcg Liraglutide (Victoza -) 1.8 mg SQ DAILY@0700 [facility] Last Admin: 07/21/17 06:35 Dose: 1.8 mg Oxycodone HCl (Roxicodone -) 10 mg PO HS [facility] Last Admin: 07/20/17 21:34 Dose: 10 mg - Objective Vital Signs: Vital Signs Temperature 97.9 F 07/21/17 08:50 Pulse Rate 88 07/21/17 08:50 Respiratory Rate 22 07/21/17 08:50 Blood Pressure 106/58 07/21/17 08:50 O2 Sat by Pulse Oximetry (%) 95 07/21/17 08:47 Constitutional: Yes: Calm Eyes: Yes: Conjunctiva Clear HENT: Yes: Atraumatic Cardiovascular: Yes: S1, S2 Respiratory: Yes: On Nasal O2 Gastrointestinal: Yes: Normal Bowel Sounds, Soft, Abdomen, Obese Genitourinary: Yes: WNL Musculoskeletal: Yes: Muscle Weakness Edema: Yes Neurological: Yes: Oriented Psychiatric: Yes: Oriented Labs: CBC, BMP 07/21/17 07:40 07/21/17 07:40 INR, PTT INR 1.32 (0.82-1.09) H 07/20/17 06:30 Problem List - Problems (1) CKD (chronic kidney disease) Code(s): N18.9 - CHRONIC KIDNEY DISEASE, UNSPECIFIED (2) Accident due to mechanical fall without injury Code(s): W19.XXXA - UNSPECIFIED FALL, INITIAL ENCOUNTER (3) Acute renal failure (ARF) Code(s): N17.9 - ACUTE KIDNEY FAILURE, UNSPECIFIED Assessment/Plan Current Medications Generic Name Dose Route Start Last Admin Trade Name Freq PRN Reason Stop Dose Admin Acetaminophen 650 mg 07/12/17 08:03 07/20/17 16:18 Tylenol - PO 650 mg Q8H PRN Administration FEVER Aspirin 81 mg 07/20/17 10:00 07/21/17 10:00 Asa - PO 81 mg DAILY NEIL Administration Atenolol 100 mg 07/12/17 10:00 07/21/17 10:01 Tenormin - PO 100 mg BID NEIL Administration Atorvastatin Calcium 80 mg 07/12/17 22:00 07/20/17 21:34 Lipitor - PO 80 mg HS NEIL Administration Bacitracin 1 applic 07/14/17 17:15 07/21/17 10:00 Bacitracin - TP 1 applic DAILY [facility] Administration Colchicine 0.6 mg 07/19/17 10:00 07/21/17 10:01 Colcrys - PO 0.6 mg DAILY NEIL Administration Collagenase 1 applic 07/12/17 10:00 07/21/17 10:02 Santyl - TP 1 applic DAILY [facility] Administration Febuxostat 40 mg 07/21/17 10:00 07/21/17 10:01 Uloric - PO 40 mg DAILY [facility] Administration Furosemide 80 mg 07/16/17 11:00 07/21/17 10:00 Lasix Injection - IVPUSH 80 mg DAILY [facility] Administration Glipizide 10 mg 07/12/17 10:00 07/21/17 10:01 Glucotrol Xl - PO 10 mg BID NEIL Administration Heparin Sodium (Porcine) 5,000 unit 07/17/17 12:00 07/19/17 08:49 Heparin - IVPUSH 5,000 unit PRN PRN Administration HEPARIN PROTOCOL Heparin Sodium (Porcine) 1,000 unit 07/17/17 12:00 07/21/17 09:00 Heparin - IVPUSH 1,000 unit PRN PRN Administration HEPARIN PROTOCOL Heparin Sodium (Porcine) 25, 500 mls @ 22 mls/hr 07/18/17 09:00 07/21/17 09: 00 000 unit/ Sodium Chloride IV 1,800 unit/hr TITR NEIL 36 mls/hr Protocol Administration 1,100 UNIT/HR Vancomycin HCl 1,000 mg/ 250 mls @ 200 mls/hr 07/17/17 15:00 07/20/17 15:30 Dextrose IVPB 200 mls/hr Q24H NEIL Administration Protocol Ceftazidime 1 gm/ Dextrose 50 mls @ 100 mls/hr 07/19/17 13:45 07/21/17 09:59 IVPB 100 mls/hr Q8H-IV NEIL Administration Insulin Aspart 1 vial 07/14/17 11:15 07/21/17 11:06 Novolog Vial Sliding Scale - SQ 10 units ACHS NEIL Administration Protocol Insulin Detemir 80 units 07/22/17 07:00 Levemir Vial SQ DAILY@0700 [facility] Levothyroxine Sodium 100 mcg 07/12/17 07:00 07/21/17 06:35 Synthroid - PO 100 mcg DAILY@0700 [facility] Administration Liraglutide 1.8 mg 07/13/17 07:00 07/21/17 06:35 Victoza - SQ 1.8 mg DAILY@0700 [facility] Administration Oxycodone HCl 10 mg 07/12/17 22:00 07/20/17 21:34 Roxicodone - PO 10 mg HS [facility] Administration Impression 1. CKD 2. KRUNAL 3. volume overload 4. obesity 5. CAD 6. cellulitis 7. s/p fall 8. a-fib 9. DM 10. hypothyroidism 11. HLD 12. CHF Plan - renal function is improving - pt has been getting 80 mg IV and 40 mg IV of lasix daily for the last three days, will give another dose today as well - cont to monitor renal function - potassium has been stable - volume status slowly improving - repeat labs in am - keep jasmyne on hold - monitor vanco levels - will follow Dr Quiroz
--- NOTE | 2017-07-21 13:15 | PN ---
Progress Note, Physician History of Present Illness: PULMONARY NO DISTRESS LAYING FLAT IN BED ON CPAP - Current Medication List Current Medications: Active Medications Acetaminophen (Tylenol -) 650 mg PO Q8H PRN PRN Reason: FEVER Last Admin: 07/20/17 16:18 Dose: 650 mg Aspirin (Asa -) 81 mg PO DAILY [facility] Last Admin: 07/21/17 10:00 Dose: 81 mg Atenolol (Tenormin -) 100 mg PO BID [facility] Last Admin: 07/21/17 10:01 Dose: 100 mg Atorvastatin Calcium (Lipitor -) 80 mg PO HS [facility] Last Admin: 07/20/17 21:34 Dose: 80 mg Bacitracin (Bacitracin -) 1 applic TP DAILY [facility] Last Admin: 07/21/17 10:00 Dose: 1 applic Colchicine (Colcrys -) 0.6 mg PO DAILY [facility] Last Admin: 07/21/17 10:01 Dose: 0.6 mg Collagenase (Santyl -) 1 applic TP DAILY [facility] Last Admin: 07/21/17 10:02 Dose: 1 applic Febuxostat (Uloric -) 40 mg PO DAILY [facility] Last Admin: 07/21/17 10:01 Dose: 40 mg Furosemide (Lasix Injection -) 80 mg IVPUSH BID@0600,1400 [facility] Glipizide (Glucotrol Xl -) 10 mg PO BID [facility] Last Admin: 07/21/17 10:01 Dose: 10 mg Heparin Sodium (Porcine) (Heparin -) 5,000 unit IVPUSH PRN PRN PRN Reason: HEPARIN PROTOCOL Last Admin: 07/19/17 08:49 Dose: 5,000 unit Heparin Sodium (Porcine) (Heparin -) 1,000 unit IVPUSH PRN PRN PRN Reason: HEPARIN PROTOCOL Last Admin: 07/21/17 09:00 Dose: 1,000 unit Heparin Sodium (Porcine) 25, (000 unit/ Sodium Chloride) 500 mls @ 22 mls/hr IV TITR NEIL; 1,100 UNIT/HR PRN Reason: Protocol Last Admin: 07/21/17 09:00 Dose: 1,800 unit/hr, 36 mls/hr Vancomycin HCl 1,000 mg/ (Dextrose) 250 mls @ 200 mls/hr IVPB Q24H [facility]IL PRN Reason: Protocol Last Admin: 07/20/17 15:30 Dose: 200 mls/hr Ceftazidime 1 gm/ Dextrose 50 mls @ 100 mls/hr IVPB Q8H-IV [facility] Last Admin: 07/21/17 09:59 Dose: 100 mls/hr Insulin Aspart (Novolog Vial Sliding Scale -) 1 vial SQ ACHS [facility] PRN Reason: Protocol Last Admin: 07/21/17 11:06 Dose: 10 units Insulin Detemir (Levemir Vial) 80 units SQ DAILY@0700 [facility] Levothyroxine Sodium (Synthroid -) 100 mcg PO DAILY@0700 [facility] Last Admin: 07/21/17 06:35 Dose: 100 mcg Liraglutide (Victoza -) 1.8 mg SQ DAILY@0700 [facility] Last Admin: 07/21/17 06:35 Dose: 1.8 mg Oxycodone HCl (Roxicodone -) 10 mg PO HS [facility] Last Admin: 07/20/17 21:34 Dose: 10 mg - Objective Vital Signs: Vital Signs Temperature 97.9 F 07/21/17 08:50 Pulse Rate 88 07/21/17 08:50 Respiratory Rate 22 07/21/17 08:50 Blood Pressure 106/58 07/21/17 08:50 O2 Sat by Pulse Oximetry (%) 95 07/21/17 08:47 Constitutional: Yes: Calm, Obese Eyes: Yes: WNL HENT: Yes: WNL Neck: Yes: WNL Cardiovascular: Yes: Pulse Irregular, S1, S2 Respiratory: Yes: Diminished Gastrointestinal: Yes: Normal Bowel Sounds, Soft, Abdomen, Obese Extremities: Yes: WNL Edema: Yes Labs: CBC, BMP 07/21/17 07:40 07/21/17 07:40 INR, PTT INR 1.32 (0.82-1.09) H 07/20/17 06:30 Problem List - Problems (1) Accident due to mechanical fall without injury Code(s): W19.XXXA - UNSPECIFIED FALL, INITIAL ENCOUNTER (2) Atrial fibrillation Code(s): I48.91 - UNSPECIFIED ATRIAL FIBRILLATION Qualifiers: Atrial fibrillation type: chronic Qualified Code(s): I48.2 - Chronic atrial fibrillation (3) CAD (coronary artery disease) Code(s): I25.10 - ATHSCL HEART DISEASE OF [place] CORONARY ARTERY W/O ANG PCTRS (4) CHF (congestive heart failure) Code(s): I50.9 - HEART FAILURE, UNSPECIFIED (5) DVT (deep venous thrombosis) Code(s): I82.409 - ACUTE EMBOLISM AND THOMBOS UNSP DEEP VN UNSP LOWER EXTREMITY Qualifiers: DVT location: lower extremity Affected thrombotic vein of extremity: femoral Chronicity: chronic Laterality: right Qualified Code(s): I82.511 - Chronic embolism and thrombosis of right femoral vein (6) Obesities, morbid Code(s): E66.01 - MORBID (SEVERE) OBESITY DUE TO EXCESS CALORIES (7) Pulmonary embolism Code(s): I26.99 - OTHER PULMONARY EMBOLISM WITHOUT ACUTE COR PULMONALE (8) Venous (peripheral) insufficiency Code(s): I87.2 - VENOUS INSUFFICIENCY (CHRONIC) (PERIPHERAL) (9) Sleep apnea Code(s): G47.30 - SLEEP APNEA, UNSPECIFIED (10) COPD (chronic obstructive pulmonary disease) Code(s): J44.9 - CHRONIC OBSTRUCTIVE PULMONARY DISEASE, UNSPECIFIED (11) Pulmonary HTN Code(s): I27.20 - PULMONARY HYPERTENSION, UNSPECIFIED (12) Dyspnea Code(s): R06.00 - DYSPNEA, UNSPECIFIED (13) Cellulitis Code(s): L03.90 - CELLULITIS, UNSPECIFIED Assessment/Plan IMP CELLULITIS S/P MECHANICAL FALL CHF ASHD S/P PCI OSAS AFIB H/O DVT/PE PULMONARY HTN MORBID OBESITY CKD PLAN LASIX O2 ABX PER ID INHALED BRONCHODILATORS BIPAP AT NIGHT AC MONITOR LYTES,RENAL FUNCTION DR MACHADO Problem List - Problems (1) Accident due to mechanical fall without injury Code(s): W19.XXXA - UNSPECIFIED FALL, INITIAL ENCOUNTER (2) Atrial fibrillation Code(s): I48.91 - UNSPECIFIED ATRIAL FIBRILLATION Qualifiers: Atrial fibrillation type: chronic Qualified Code(s): I48.2 - Chronic atrial fibrillation (3) CAD (coronary artery disease) Code(s): I25.10 - ATHSCL HEART DISEASE OF [place] CORONARY ARTERY W/O ANG PCTRS (4) CHF (congestive heart failure) Code(s): I50.9 - HEART FAILURE, UNSPECIFIED (5) DVT (deep venous thrombosis) Code(s): I82.409 - ACUTE EMBOLISM AND THOMBOS UNSP DEEP VN UNSP LOWER EXTREMITY Qualifiers: DVT location: lower extremity Affected thrombotic vein of extremity: femoral Chronicity: chronic Laterality: right Qualified Code(s): I82.511 - Chronic embolism and thrombosis of right femoral vein (6) Obesities, morbid Code(s): E66.01 - MORBID (SEVERE) OBESITY DUE TO EXCESS CALORIES (7) Pulmonary embolism Code(s): I26.99 - OTHER PULMONARY EMBOLISM WITHOUT ACUTE COR PULMONALE (8) Venous (peripheral) insufficiency Code(s): I87.2 - VENOUS INSUFFICIENCY (CHRONIC) (PERIPHERAL) (9) Sleep apnea Code(s): G47.30 - SLEEP APNEA, UNSPECIFIED (10) COPD (chronic obstructive pulmonary disease) Code(s): J44.9 - CHRONIC OBSTRUCTIVE PULMONARY DISEASE, UNSPECIFIED (11) Pulmonary HTN Code(s): I27.20 - PULMONARY HYPERTENSION, UNSPECIFIED (12) Dyspnea Code(s): R06.00 - DYSPNEA, UNSPECIFIED (13) Cellulitis Code(s): L03.90 - CELLULITIS, UNSPECIFIED
--- NOTE | 2017-07-21 13:28 | PN ---
Progress Note, Physician History of Present Illness: no new issues on bipap lying flat - Current Medication List Current Medications: Active Medications Acetaminophen (Tylenol -) 650 mg PO Q8H PRN PRN Reason: FEVER Last Admin: 07/20/17 16:18 Dose: 650 mg Aspirin (Asa -) 81 mg PO DAILY [facility] Last Admin: 07/21/17 10:00 Dose: 81 mg Atenolol (Tenormin -) 100 mg PO BID [facility] Last Admin: 07/21/17 10:01 Dose: 100 mg Atorvastatin Calcium (Lipitor -) 80 mg PO HS [facility] Last Admin: 07/20/17 21:34 Dose: 80 mg Bacitracin (Bacitracin -) 1 applic TP DAILY [facility] Last Admin: 07/21/17 10:00 Dose: 1 applic Colchicine (Colcrys -) 0.6 mg PO DAILY [facility] Last Admin: 07/21/17 10:01 Dose: 0.6 mg Collagenase (Santyl -) 1 applic TP DAILY [facility] Last Admin: 07/21/17 10:02 Dose: 1 applic Febuxostat (Uloric -) 40 mg PO DAILY [facility] Last Admin: 07/21/17 10:01 Dose: 40 mg Furosemide (Lasix Injection -) 80 mg IVPUSH BID@0600,1400 [facility] Glipizide (Glucotrol Xl -) 10 mg PO BID [facility] Last Admin: 07/21/17 10:01 Dose: 10 mg Heparin Sodium (Porcine) (Heparin -) 5,000 unit IVPUSH PRN PRN PRN Reason: HEPARIN PROTOCOL Last Admin: 07/19/17 08:49 Dose: 5,000 unit Heparin Sodium (Porcine) (Heparin -) 1,000 unit IVPUSH PRN PRN PRN Reason: HEPARIN PROTOCOL Last Admin: 07/21/17 09:00 Dose: 1,000 unit Heparin Sodium (Porcine) 25, (000 unit/ Sodium Chloride) 500 mls @ 22 mls/hr IV TITR NEIL; 1,100 UNIT/HR PRN Reason: Protocol Last Admin: 07/21/17 09:00 Dose: 1,800 unit/hr, 36 mls/hr Vancomycin HCl 1,000 mg/ (Dextrose) 250 mls @ 200 mls/hr IVPB Q24H NEIL PRN Reason: Protocol Last Admin: 07/20/17 15:30 Dose: 200 mls/hr Ceftazidime 1 gm/ Dextrose 50 mls @ 100 mls/hr IVPB Q8H-IV [facility] Last Admin: 07/21/17 09:59 Dose: 100 mls/hr Insulin Aspart (Novolog Vial Sliding Scale -) 1 vial SQ ACHS [facility] PRN Reason: Protocol Last Admin: 07/21/17 11:06 Dose: 10 units Insulin Detemir (Levemir Vial) 80 units SQ DAILY@0700 [facility] Levothyroxine Sodium (Synthroid -) 100 mcg PO DAILY@0700 [facility] Last Admin: 07/21/17 06:35 Dose: 100 mcg Liraglutide (Victoza -) 1.8 mg SQ DAILY@0700 [facility] Last Admin: 07/21/17 06:35 Dose: 1.8 mg Oxycodone HCl (Roxicodone -) 10 mg PO HS [facility] Last Admin: 07/20/17 21:34 Dose: 10 mg - Objective Vital Signs: Vital Signs Temperature 97.9 F 07/21/17 08:50 Pulse Rate 88 07/21/17 08:50 Respiratory Rate 22 07/21/17 08:50 Blood Pressure 106/58 07/21/17 08:50 O2 Sat by Pulse Oximetry (%) 95 07/21/17 08:47 Constitutional: Yes: No Distress, Calm Cardiovascular: Yes: S1, S2 Respiratory: Yes: On BiPap, Other Gastrointestinal: Yes: Normal Bowel Sounds, Soft Musculoskeletal: Yes: Other Extremities: Yes: Other Wound/Incision: Yes: Dressing Dry and Intact Neurological: Yes: Alert, Oriented Psychiatric: Yes: Alert, Oriented Labs: CBC, BMP 07/21/17 07:40 07/21/17 07:40 INR, PTT INR 1.32 (0.82-1.09) H 07/20/17 06:30 Assessment/Plan Problem List - Problems (1) Accident due to mechanical fall without injury Code(s): W19.XXXA - UNSPECIFIED FALL, INITIAL ENCOUNTER (2) Atrial fibrillation Code(s): I48.91 - UNSPECIFIED ATRIAL FIBRILLATION Qualifiers: Atrial fibrillation type: chronic Qualified Code(s): I48.2 - Chronic atrial fibrillation (3) CAD (coronary artery disease) Code(s): I25.10 - ATHSCL HEART DISEASE OF [place] CORONARY ARTERY W/O ANG PCTRS (4) CHF (congestive heart failure) Code(s): I50.9 - HEART FAILURE, UNSPECIFIED (5) DVT (deep venous thrombosis) Code(s): I82.409 - ACUTE EMBOLISM AND THOMBOS UNSP DEEP VN UNSP LOWER EXTREMITY Qualifiers: DVT location: lower extremity Affected thrombotic vein of extremity: femoral Chronicity: chronic Laterality: right Qualified Code(s): I82.511 - Chronic embolism and thrombosis of right femoral vein (6) Obesities, morbid Code(s): E66.01 - MORBID (SEVERE) OBESITY DUE TO EXCESS CALORIES (7) Pulmonary embolism Code(s): I26.99 - OTHER PULMONARY EMBOLISM WITHOUT ACUTE COR PULMONALE (8) Venous (peripheral) insufficiency Code(s): I87.2 - VENOUS INSUFFICIENCY (CHRONIC) (PERIPHERAL) (9) Sleep apnea Code(s): G47.30 - SLEEP APNEA, UNSPECIFIED (10) COPD (chronic obstructive pulmonary disease) Code(s): J44.9 - CHRONIC OBSTRUCTIVE PULMONARY DISEASE, UNSPECIFIED (11) Pulmonary HTN Code(s): I27.20 - PULMONARY HYPERTENSION, UNSPECIFIED (12) Dyspnea Code(s): R06.00 - DYSPNEA, UNSPECIFIED (13) Cellulitis Code(s): L03.90 - CELLULITIS, UNSPECIFIED 14) wound infection [address] ceftazidime continue vanco rest continue current mgmt rest as per primary will desescalte abx by wednesday will check vanco trough
--- NOTE | 2017-07-21 14:18 | PN ---
Progress Note, Physician Chief Complaint: Resting comfortably with BIPAP in bed. No LLE pain. Noted high BGM-likely from IV steroids History of Present Illness: Morbid obesity. ASHLEY. Bilateral PE. Pulmonary HTN-CTEPH AND CLASS 2 PAH. CHF-mostly diastolic. ASHD. STEMI in 2016 with MICHAEL x2 placed at [place]. Chronic A.Fib-on a/c-Xarelto/ASA now. Gout. 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 Chronic DVT Right thigh, Stasis ulcers, edema. Chronic wound right Ankle/dobbs-RX at [facility]-groing multiple organisms. - Current Medication List Current Medications: Active Medications Acetaminophen (Tylenol -) 650 mg PO Q8H PRN PRN Reason: FEVER Last Admin: 07/20/17 16:18 Dose: 650 mg Albuterol/Ipratropium (Duoneb -) 1 amp NEB Q4H PRN PRN Reason: SHORTNESS OF BREATH Aspirin (Asa -) 81 mg PO DAILY [facility] Last Admin: 07/21/17 10:00 Dose: 81 mg Atenolol (Tenormin -) 100 mg PO BID [facility] Last Admin: 07/21/17 10:01 Dose: 100 mg Atorvastatin Calcium (Lipitor -) 80 mg PO HS [facility] Last Admin: 07/20/17 21:34 Dose: 80 mg Bacitracin (Bacitracin -) 1 applic TP DAILY [facility] Last Admin: 07/21/17 10:00 Dose: 1 applic Colchicine (Colcrys -) 0.6 mg PO DAILY [facility] Last Admin: 07/21/17 10:01 Dose: 0.6 mg Collagenase (Santyl -) 1 applic TP DAILY [facility] Last Admin: 07/21/17 10:02 Dose: 1 applic Febuxostat (Uloric -) 40 mg PO DAILY [facility] Last Admin: 07/21/17 10:01 Dose: 40 mg Furosemide (Lasix Injection -) 80 mg IVPUSH BID@0600,1400 [facility] Glipizide (Glucotrol Xl -) 10 mg PO BID [facility] Last Admin: 07/21/17 10:01 Dose: 10 mg Heparin Sodium (Porcine) (Heparin -) 5,000 unit IVPUSH PRN PRN PRN Reason: HEPARIN PROTOCOL Last Admin: 07/19/17 08:49 Dose: 5,000 unit Heparin Sodium (Porcine) (Heparin -) 1,000 unit IVPUSH PRN PRN PRN Reason: HEPARIN PROTOCOL Last Admin: 07/21/17 09:00 Dose: 1,000 unit Heparin Sodium (Porcine) 25, (000 unit/ Sodium Chloride) 500 mls @ 22 mls/hr IV TITR NEIL; 1,100 UNIT/HR PRN Reason: Protocol Last Admin: 07/21/17 09:00 Dose: 1,800 unit/hr, 36 mls/hr Vancomycin HCl 1,000 mg/ (Dextrose) 250 mls @ 200 mls/hr IVPB Q24H NEIL PRN Reason: Protocol Last Admin: 07/20/17 15:30 Dose: 200 mls/hr Ceftazidime 1 gm/ Dextrose 50 mls @ 100 mls/hr IVPB Q8H-IV NEIL Last Admin: 07/21/17 09:59 Dose: 100 mls/hr Insulin Aspart (Novolog Vial Sliding Scale -) 1 vial SQ ACHS NEIL PRN Reason: Protocol Last Admin: 07/21/17 11:06 Dose: 10 units Insulin Detemir (Levemir Vial) 80 units SQ DAILY@0700 [facility] Levothyroxine Sodium (Synthroid -) 100 mcg PO DAILY@0700 [facility] Last Admin: 07/21/17 06:35 Dose: 100 mcg Liraglutide (Victoza -) 1.8 mg SQ DAILY@0700 [facility] Last Admin: 07/21/17 06:35 Dose: 1.8 mg Oxycodone HCl (Roxicodone -) 10 mg PO HS [facility] Last Admin: 07/20/17 21:34 Dose: 10 mg - Objective Vital Signs: Vital Signs Temperature 97.9 F 07/21/17 08:50 Pulse Rate 88 07/21/17 08:50 Respiratory Rate 22 07/21/17 08:50 Blood Pressure 106/58 07/21/17 08:50 O2 Sat by Pulse Oximetry (%) 95 07/21/17 08:47 Constitutional: Yes: Mild Distress, Obese Eyes: Yes: Conjunctiva Clear, EOM Intact HENT: Yes: Atraumatic, Normocephalic. No: Drooling, Epistaxis Neck: Yes: Supple, Trachea Midline. No: Decreased ROM, Lymphadenopathy, Rigid Cardiovascular: Yes: Pulse Irregular, S1, S2. No: JVD, Rub Respiratory: Yes: Regular, Rales (B/L decreased) Gastrointestinal: Yes: Normal Bowel Sounds, Soft, Abdomen, Obese. No: Distention, Pulsatile Mass, Tenderness ...Rectal Exam: Yes: Deferred Genitourinary: No: Anuria, Bladder Distention, CVA Tenderness - Left, CVA Tenderness - Right Breast(s): Yes: WNL Musculoskeletal: Yes: Back Pain Extremities: Yes: Erythema. No: Amputation, Calf Tenderness, Cold, Deformity Edema: Yes Edema: LLE: 2+, RLE: 2+ Peripheral Pulses WNL: No Integumentary: Yes: Pressure Ulcer (right ankle) Neurological: Yes: Alert, Oriented. No: Aphasia, Confusion, Lethargy, Seizure ...Motor Strength: WNL Psychiatric: Yes: Alert, Oriented. No: Agitated, Suicidal Ideation Labs: CBC, BMP 07/21/17 07:40 07/21/17 07:40 INR, PTT INR 1.32 (0.82-1.09) H 07/20/17 06:30 Problem List - Problems (1) Atrial fibrillation Assessment/Plan: continue rate control, A/C Code(s): I48.91 - UNSPECIFIED ATRIAL FIBRILLATION Qualifiers: Atrial fibrillation type: chronic Qualified Code(s): I48.2 - Chronic atrial fibrillation (2) CHF (congestive heart failure) Assessment/Plan: OFF UVALDO nephrology consult noted Continue Lasix though noted worsening renal fx Decrease PO fluids intake-restriction 1400 cc Code(s): I50.9 - HEART FAILURE, UNSPECIFIED (3) Cellulitis of right leg Assessment/Plan: Continue IV ABX for the next 48 hrs. and switch to PO Wound care Apply UVALDO bandages for venous stasis Code(s): L03.115 - CELLULITIS OF RIGHT LOWER LIMB (4) Diabetes Assessment/Plan: Increase Levemir 80 units QD Novolog sliding scale Code(s): E11.9 - TYPE 2 DIABETES MELLITUS WITHOUT COMPLICATIONS Qualifiers: Diabetes mellitus type: type 2 Diabetes mellitus complication status: with circulatory complication (5) Acute renal failure (ARF) Assessment/Plan: stable BUN /Cr-will follow Code(s): N17.9 - ACUTE KIDNEY FAILURE, UNSPECIFIED (6) Acute renal insufficiency Assessment/Plan: Acute renal insufficiency in CKD Diff dx [id number] insufficiency, ATN and hypotension due to sepsis and infection. Code(s): N28.9 - DISORDER OF KIDNEY AND URETER, UNSPECIFIED (7) Acute gouty arthritis Assessment/Plan: Uloric, Colchicin PO. Code(s): M10.9 - GOUT, UNSPECIFIED
[2017-07-21] MEDS: VANCOMYCIN 1,000 MG in DEXTROSE 5%-WATER - 250 ML IVPB SCH (15:15)
[2017-07-21] MEDS: ATORVASTATIN CA 80 MG TABLET (FP) PO SCH (22:11)
[2017-07-21] MEDS: oxyCODONE HCL 5 MG TABLET PO SCH (22:12)
[2017-07-22] MEDS: HEPARIN NA (PORCINE) 5,000 UNITS/ML 1ML VIAL IVPUSH PRN (02:10)
[2017-07-22] MEDS: CEFTAZIDIME PENTAHYDRATE 1 GM in DEXTROSE 5%-WATER - 50 ML IVPB SCH ×3 (02:10→17:33)
[2017-07-22] MEDS: HEPARIN - 25,000 UNIT in SODIUM CHLORIDE 495 ML IV SCH ×2 (02:11→09:52)
[2017-07-22] MEDS: INSULIN (LEVEMIR) 100 UNITS/ML UNITS SQ SCH (06:21)
[2017-07-22] MEDS: LEVOTHYROXINE NA 100 MCG TABLET (FP) PO SCH (06:21)
[2017-07-22] MEDS: FUROSEMIDE 40 MG/4 ML INJECTABLE VIAL IVPUSH SCH (06:21)
[2017-07-22] MEDS: LIRAGLUTIDE 0.6 MG/0.1 ML PEN.INJCTR SQ SCH (06:26)
[2017-07-22] MEDS: INSULIN SLIDING SCALE (NOVOLOG) 1 VIAL SQ SCH ×4 (06:31→21:42)
[2017-07-22 08:27] LABS: HEMATOCRIT 29.9 % (35.4-49); HEMOGLOBIN 9.7 GM/dL (11.7-16.9); MCH 31.4 pg (25.7-33.7); MCHC 32.4 g/dl (32.0-35.9); MEAN CELL VOLUME 96.8 fl (80-96); MEAN PLT VOLUME 8.6 fl (7.5-11.1); PLATELET COUNT 212 K/MM3 (134-434); RBC 3.09 M/mm3 (4.00-5.60); RDW 17.1 % (11.9-15.9); WHITE BLOOD COUNT 13.5 K/mm3 (4.0-10.0)
--- NOTE | 2017-07-22 08:39 | PN ---
Progress Note, Physician Chief Complaint: Less SOB, Less LE pain, c/o weakness. History of Present Illness: Morbid obesity. ASHLEY. Bilateral PE. Pulmonary HTN-CTEPH AND CLASS 2 PAH. CHF-mostly diastolic. ASHD. STEMI in 2016 with MICHAEL x2 placed at [employer]. Chronic A.Fib-on a/c-Xarelto/ASA now. Gout. 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 Chronic DVT Right thigh, Stasis ulcers, edema. Chronic wound right Ankle/dobbs-RX at [facility]-groing multiple organisms. - Current Medication List Current Medications: Active Medications Acetaminophen (Tylenol -) 650 mg PO Q8H PRN PRN Reason: FEVER Last Admin: 07/20/17 16:18 Dose: 650 mg Albuterol/Ipratropium (Duoneb -) 1 amp NEB Q4H PRN PRN Reason: SHORTNESS OF BREATH Aspirin (Asa -) 81 mg PO DAILY [facility] Last Admin: 07/21/17 10:00 Dose: 81 mg Atenolol (Tenormin -) 100 mg PO BID [facility] Last Admin: 07/21/17 22:13 Dose: 100 mg Atorvastatin Calcium (Lipitor -) 80 mg PO HS [facility] Last Admin: 07/21/17 22:11 Dose: 80 mg Bacitracin (Bacitracin -) 1 applic TP DAILY [facility] Last Admin: 07/21/17 10:00 Dose: 1 applic Colchicine (Colcrys -) 0.6 mg PO DAILY [facility] Last Admin: 07/21/17 10:01 Dose: 0.6 mg Collagenase (Santyl -) 1 applic TP DAILY [facility] Last Admin: 07/21/17 10:02 Dose: 1 applic Febuxostat (Uloric -) 40 mg PO DAILY [facility] Last Admin: 07/21/17 10:01 Dose: 40 mg Furosemide (Lasix Injection -) 80 mg IVPUSH BID@0600,1400 [facility] Last Admin: 07/22/17 06:21 Dose: 80 mg Glipizide (Glucotrol Xl -) 10 mg PO BID [facility] Last Admin: 07/21/17 22:11 Dose: 10 mg Heparin Sodium (Porcine) (Heparin -) 5,000 unit IVPUSH PRN PRN PRN Reason: HEPARIN PROTOCOL Last Admin: 07/19/17 08:49 Dose: 5,000 unit Heparin Sodium (Porcine) (Heparin -) 1,000 unit IVPUSH PRN PRN PRN Reason: HEPARIN PROTOCOL Last Admin: 07/22/17 02:10 Dose: 1,000 unit Heparin Sodium (Porcine) 25, (000 unit/ Sodium Chloride) 500 mls @ 22 mls/hr IV TITR NEIL; 1,100 UNIT/HR PRN Reason: Protocol Last Admin: 07/22/17 02:11 Dose: 2,000 unit/hr, 40 mls/hr Vancomycin HCl 1,000 mg/ (Dextrose) 250 mls @ 200 mls/hr IVPB Q24H NEIL PRN Reason: Protocol Last Admin: 07/21/17 15:15 Dose: 200 mls/hr Ceftazidime 1 gm/ Dextrose 50 mls @ 100 mls/hr IVPB Q8H-IV NEIL Last Admin: 07/22/17 02:10 Dose: 100 mls/hr Insulin Aspart (Novolog Vial Sliding Scale -) 1 vial SQ ACHS NEIL PRN Reason: Protocol Last Admin: 07/22/17 06:31 Dose: 4 units Insulin Detemir (Levemir Vial) 80 units SQ DAILY@0700 [facility] Last Admin: 07/22/17 06:21 Dose: 80 units Levothyroxine Sodium (Synthroid -) 100 mcg PO DAILY@0700 [facility] Last Admin: 07/22/17 06:21 Dose: 100 mcg Liraglutide (Victoza -) 1.8 mg SQ DAILY@0700 [facility] Last Admin: 07/22/17 06:26 Dose: 1.8 mg Oxycodone HCl (Roxicodone -) 10 mg PO HS [facility] Last Admin: 07/21/17 22:12 Dose: 10 mg - Objective Vital Signs: Vital Signs Temperature 97.6 F 07/22/17 06:40 Pulse Rate 90 07/22/17 06:40 Respiratory Rate 20 07/22/17 06:40 Blood Pressure 105/60 07/22/17 06:40 O2 Sat by Pulse Oximetry (%) 96 07/21/17 21:00 Constitutional: Yes: No Distress, Calm Eyes: Yes: Conjunctiva Clear, EOM Intact HENT: Yes: Atraumatic, Normocephalic Neck: Yes: Supple, Trachea Midline Cardiovascular: Yes: Regular Rate and Rhythm. No: Bradycardia, Tachycardia Respiratory: Yes: Regular, CTA Bilaterally. No: Accessory Muscle Use Gastrointestinal: Yes: Normal Bowel Sounds, Soft, Abdomen, Obese ...Rectal Exam: Yes: Deferred Breast(s): Yes: WNL, Left Musculoskeletal: Yes: WNL Extremities: Yes: Cyanosis, Erythema. No: Calf Tenderness, Cold Edema: LLE: 1+, RLE: 1+ Peripheral Pulses WNL: No Integumentary: Yes: Pressure Ulcer (Right ankle) Neurological: Yes: WNL, Alert, Oriented. No: Aphasia Psychiatric: Yes: WNL Labs: INR, PTT INR 1.32 (0.82-1.09) H 07/20/17 06:30 Laboratory Results - last 24 hr 07/20/17 07/21/17 07/21/17 21:40 06:31 07:40 WBC RBC Hgb Hct MCV MCH MCHC RDW Plt Count MPV PTT (Actin FS) Sodium 138 Potassium 4.5 Chloride 105 Carbon Dioxide 23 Anion Gap 10 BUN 102 H Creatinine 3.0 H Creat Clearance w eGFR 21.31 POC Glucometer 405 451 Random Glucose 417 H* D Calcium 8.0 L Total Bilirubin 0.8 AST 29 D ALT 42 D Alkaline Phosphatase 90 Total Protein 7.5 Albumin 2.7 L 07/21/17 07/21/17 07/22/17 10:08 15:30 01:00 WBC RBC Hgb Hct MCV MCH MCHC RDW Plt Count MPV PTT (Actin FS) 42.1 H 48.9 H Sodium Potassium Chloride Carbon Dioxide Anion Gap BUN Creatinine Creat Clearance w eGFR POC Glucometer 435 Random Glucose Calcium Total Bilirubin AST ALT Alkaline Phosphatase Total Protein Albumin 07/22/17 07/22/17 05:53 07:00 WBC 13.5 H RBC 3.09 L Hgb 9.7 L Hct 29.9 L MCV 96.8 H MCH 31.4 MCHC 32.4 RDW 17.1 H Plt Count 212 MPV 8.6 PTT (Actin FS) Sodium Potassium Chloride Carbon Dioxide Anion Gap BUN Creatinine Creat Clearance w eGFR POC Glucometer 349 Random Glucose Calcium Total Bilirubin AST ALT Alkaline Phosphatase Total Protein Albumin Problem List - Problems (1) Atrial fibrillation Assessment/Plan: continue rate control, A/C Code(s): I48.91 - UNSPECIFIED ATRIAL FIBRILLATION Qualifiers: Atrial fibrillation type: chronic Qualified Code(s): I48.2 - Chronic atrial fibrillation (2) CHF (congestive heart failure) Assessment/Plan: OFF UVALDO nephrology consult noted Continue Lasix though noted worsening renal fx Decrease PO fluids intake-restriction 1400 cc Code(s): I50.9 - HEART FAILURE, UNSPECIFIED (3) Cellulitis of right leg Assessment/Plan: Continue IV ABX for the next 48 hrs. and switch to PO Wound care Apply UVALDO bandages for venous stasis Code(s): L03.115 - CELLULITIS OF RIGHT LOWER LIMB (4) Diabetes Assessment/Plan: Increase Levemir 80 units QD Novolog sliding scale Code(s): E11.9 - TYPE 2 DIABETES MELLITUS WITHOUT COMPLICATIONS Qualifiers: Diabetes mellitus type: type 2 Diabetes mellitus complication status: with circulatory complication (5) Acute renal failure (ARF) Assessment/Plan: stable BUN /Cr-will follow Code(s): N17.9 - ACUTE KIDNEY FAILURE, UNSPECIFIED (6) Acute renal insufficiency Assessment/Plan: Acute renal insufficiency in CKD Diff dx [id number] insufficiency, ATN and hypotension due to sepsis and infection. Code(s): N28.9 - DISORDER OF KIDNEY AND URETER, UNSPECIFIED (7) Acute gouty arthritis Assessment/Plan: Uloric, Colchicin PO. Code(s): M10.9 - GOUT, UNSPECIFIED
[2017-07-22 09:03] LABS: ALBUMIN 2.9 g/dl (3.4-5.0); ANION GAP 8 (8-16); CALCIUM 8.3 mg/dL (8.5-10.1); CHLORIDE 103 mmol/L (98-107); CO2 26 mmol/L (21-32); POTASSIUM 4.3 mmol/L (3.5-5.1); SODIUM 137 mmol/L (136-145)
[2017-07-22 09:06] LABS: ALK PHOS 79 U/L (45-117); BILIRUBIN,TOTAL 0.7 mg/dL (0.2-1.0); CREATININE 2.7 mg/dL (0.7-1.3); SGOT/AST 39 U/L (15-37); SGPT/ALT 62 U/L (12-78)
[2017-07-22 09:19] LABS: BLOOD UREA NITROGEN 105 mg/dL (7-18); GLUCOSE,RANDOM 337 mg/dL (74-106)
[2017-07-22] MEDS: ASPIRIN 81 MG CHEWABLE TABLETS PO SCH ×2 (09:51→11:27)
[2017-07-22] MEDS: COLCHICINE 0.6 MG TABLET (FP) PO SCH ×2 (09:51→11:28)
[2017-07-22] MEDS: FEBUXOSTAT 40 MG TAB PO SCH ×2 (09:52→11:31)
[2017-07-22] MEDS: ATENOLOL 50 MG TABLET (FP) PO SCH ×2 (09:53→21:42)
[2017-07-22] MEDS: glipiZIDE-XL 10 MG TAB.ER.24 (FP) PO SCH ×4 (09:53→21:48)
[2017-07-22] MEDS: BACITRACIN 15 GM TUBE TOPICAL OINTMENT TP SCH (09:56)
[2017-07-22] MEDS: COLLAGENASE CLOSTRIDIUM HIST. 30 GRAMS TUBE TP SCH (10:17)
[2017-07-22] MEDS ORDERED: morphine SULFATE 4 MG/ML VIAL IVPUSH ONE (10:56)
--- NOTE | 2017-07-22 11:28 | RAPID ---
Physical Examination Vital Signs: Vital Signs Temperature 98.1 F 07/22/17 09:00 Pulse Rate 85 07/22/17 09:00 Respiratory Rate 18 07/22/17 09:00 Blood Pressure 113/73 07/22/17 09:00 O2 Sat by Pulse Oximetry (%) 96 07/22/17 08:56 Constitutional: Yes: Mild Distress, Obese Extremities: Yes: Other (L distal tibia compound fracture; DP palpable) Labs: CBC, BMP 07/22/17 07:00 07/22/17 07:00 Rapid Response - Rapid Response Assessment: Rapid response was called. Patient was found lying in bed on BIPAP with a L distal tibia compound fracture after attempt to walk to commode and bearing weight on L foot. VSS. Patient with minimal pain 2/2 diabetic neuropathy. Heparin gtt was stopped. Direct pressure was applied to the area for hemostasis. Stat ankle XRAY was ordered. Orthopedics was immediately called for emergency surgery. Dr. Thayer arrived; he reduced fracture at bedside and placed fibroglass splint/jasmyne bandages and arranging for stat OR procedure for external fixation. Patient given Morphine 2mg IVP for pain control and made NPO. Dr. Hudson was notified of event/fracture. Patient called family to notify of same.
[2017-07-22] MEDS ORDERED: INSULIN (NOVOLOG) ASPART 100 UNITS/ML 10ML VIAL ONE (11:31)
--- NOTE | 2017-07-22 12:31 | PN ---
Progress Note (short form) - Note Progress Note: Remains on NIPPV. Noted TRANSIT MANAGER was called. (+) foot pain was medicated. Intake & Output 07/19/17 07/20/17 07/21/17 07/22/17 23:59 23:59 23:59 23:59 Intake Total 1012 2904 3288 518 Output Total 2150 1950 2150 600 Balance -3185 736 8412 -82 Weight 455 lb 6.4 oz 452 lb 6 oz 448 lb 9 oz 448 lb 8 oz Last Vital Signs Temp Pulse Resp BP Pulse Ox 98.1 F 85 18 113/73 96 07/22/17 09:00 07/22/17 09:00 07/22/17 09:00 07/22/17 09:00 07/22/17 08:56 Active Medications Acetaminophen (Tylenol -) 650 mg PO Q8H PRN PRN Reason: FEVER Last Admin: 07/20/17 16:18 Dose: 650 mg Albuterol/Ipratropium (Duoneb -) 1 amp NEB Q4H PRN PRN Reason: SHORTNESS OF BREATH Aspirin (Asa -) 81 mg PO DAILY [facility] Last Admin: 07/22/17 11:27 Dose: Not Given Atenolol (Tenormin -) 100 mg PO BID [facility] Last Admin: 07/22/17 09:53 Dose: 100 mg Atorvastatin Calcium (Lipitor -) 80 mg PO HS [facility] Last Admin: 07/21/17 22:11 Dose: 80 mg Bacitracin (Bacitracin -) 1 applic TP DAILY [facility] Last Admin: 07/22/17 09:56 Dose: 1 applic Colchicine (Colcrys -) 0.6 mg PO DAILY [facility] Last Admin: 07/22/17 11:28 Dose: 0.6 mg Collagenase (Santyl -) 1 applic TP DAILY [facility] Last Admin: 07/22/17 10:17 Dose: 1 applic Febuxostat (Uloric -) 40 mg PO DAILY [facility] Last Admin: 07/22/17 11:31 Dose: 40 mg Furosemide (Lasix Injection -) 80 mg IVPUSH DAILY [facility] Glipizide (Glucotrol Xl -) 10 mg PO BID [facility] Last Admin: 07/22/17 11:31 Dose: 10 mg Heparin Sodium (Porcine) (Heparin -) 5,000 unit IVPUSH PRN PRN PRN Reason: HEPARIN PROTOCOL Last Admin: 07/19/17 08:49 Dose: 5,000 unit Heparin Sodium (Porcine) (Heparin -) 1,000 unit IVPUSH PRN PRN PRN Reason: HEPARIN PROTOCOL Last Admin: 07/22/17 02:10 Dose: 1,000 unit Heparin Sodium (Porcine) 25, (000 unit/ Sodium Chloride) 500 mls @ 22 mls/hr IV TITR NEIL; 1,100 UNIT/HR PRN Reason: Protocol Last Admin: 07/22/17 09:52 Dose: 2,000 unit/hr, 40 mls/hr Vancomycin HCl 1,000 mg/ (Dextrose) 250 mls @ 200 mls/hr IVPB Q24H NEIL PRN Reason: Protocol Last Admin: 07/21/17 15:15 Dose: 200 mls/hr Ceftazidime 1 gm/ Dextrose 50 mls @ 100 mls/hr IVPB Q8H-IV NEIL Last Admin: 07/22/17 09:50 Dose: 100 mls/hr Insulin Aspart (Novolog Vial Sliding Scale -) 1 vial SQ ACHS NEIL PRN Reason: Protocol Last Admin: 07/22/17 11:34 Dose: 8 units Insulin Detemir (Levemir Vial) 80 units SQ DAILY@0700 [facility] Last Admin: 07/22/17 06:21 Dose: 80 units Levothyroxine Sodium (Synthroid -) 100 mcg PO DAILY@0700 [facility] Last Admin: 07/22/17 06:21 Dose: 100 mcg Liraglutide (Victoza -) 1.8 mg SQ DAILY@0700 [facility] Last Admin: 07/22/17 06:26 Dose: 1.8 mg Oxycodone HCl (Roxicodone -) 10 mg PO HS [facility] Last Admin: 07/21/17 22:12 Dose: 10 mg Constitutional: Yes: Awake on NIPPV Eyes: Yes: WNL HENT: Yes: WNL Neck: Yes: WNL Cardiovascular: Yes: Pulse Irregular, S1, S2 Respiratory: Yes: Diminished, scattered rhonchi Gastrointestinal: Yes: Normal Bowel Sounds, Soft Extremities: Yes: WNL Edema: Yes Labs: Laboratory Results - last 24 hr 07/21/17 07/21/17 07/21/17 10:08 15:30 16:17 WBC RBC Hgb Hct MCV MCH MCHC RDW Plt Count MPV PTT (Actin FS) 42.1 H Sodium Potassium Chloride Carbon Dioxide Anion Gap BUN Creatinine Creat Clearance w eGFR POC Glucometer 435 424 Random Glucose Calcium Total Bilirubin AST ALT Alkaline Phosphatase Total Protein Albumin 07/21/17 07/22/17 07/22/17 22:09 01:00 05:53 WBC RBC Hgb Hct MCV MCH MCHC RDW Plt Count MPV PTT (Actin FS) 48.9 H Sodium Potassium Chloride Carbon Dioxide Anion Gap BUN Creatinine Creat Clearance w eGFR POC Glucometer 404 349 Random Glucose Calcium Total Bilirubin AST ALT Alkaline Phosphatase Total Protein Albumin 07/22/17 07/22/17 07/22/17 07:00 07:00 07:00 WBC 13.5 H RBC 3.09 L Hgb 9.7 L Hct 29.9 L MCV 96.8 H MCH 31.4 MCHC 32.4 RDW 17.1 H Plt Count 212 MPV 8.6 PTT (Actin FS) 71.3 H D Sodium 137 Potassium 4.3 Chloride 103 Carbon Dioxide 26 Anion Gap 8 BUN 105 H* Creatinine 2.7 H Creat Clearance w eGFR 24.07 POC Glucometer Random Glucose 337 H* Calcium 8.3 L Total Bilirubin 0.7 AST 39 H D ALT 62 D Alkaline Phosphatase 79 Total Protein 8.0 Albumin 2.9 L 07/22/17 10:18 WBC RBC Hgb Hct MCV MCH MCHC RDW Plt Count MPV PTT (Actin FS) Sodium Potassium Chloride Carbon Dioxide Anion Gap BUN Creatinine Creat Clearance w eGFR POC Glucometer 338 Random Glucose Calcium Total Bilirubin AST ALT Alkaline Phosphatase Total Protein Albumin Problem List - Problems (1) Accident due to mechanical fall without injury Code(s): W19.XXXA - UNSPECIFIED FALL, INITIAL ENCOUNTER (2) Atrial fibrillation Code(s): I48.91 - UNSPECIFIED ATRIAL FIBRILLATION Qualifiers: Atrial fibrillation type: chronic Qualified Code(s): I48.2 - Chronic atrial fibrillation (3) CAD (coronary artery disease) Code(s): I25.10 - ATHSCL HEART DISEASE OF [place] CORONARY ARTERY W/O ANG PCTRS (4) CHF (congestive heart failure) Code(s): I50.9 - HEART FAILURE, UNSPECIFIED (5) DVT (deep venous thrombosis) Code(s): I82.409 - ACUTE EMBOLISM AND THOMBOS UNSP DEEP VN UNSP LOWER EXTREMITY Qualifiers: DVT location: lower extremity Affected thrombotic vein of extremity: femoral Chronicity: chronic Laterality: right Qualified Code(s): I82.511 - Chronic embolism and thrombosis of right femoral vein (6) Obesities, morbid Code(s): E66.01 - MORBID (SEVERE) OBESITY DUE TO EXCESS CALORIES (7) Pulmonary embolism Code(s): I26.99 - OTHER PULMONARY EMBOLISM WITHOUT ACUTE COR PULMONALE (8) Venous (peripheral) insufficiency Code(s): I87.2 - VENOUS INSUFFICIENCY (CHRONIC) (PERIPHERAL) (9) Sleep apnea Code(s): G47.30 - SLEEP APNEA, UNSPECIFIED (10) COPD (chronic obstructive pulmonary disease) Code(s): J44.9 - CHRONIC OBSTRUCTIVE PULMONARY DISEASE, UNSPECIFIED (11) Pulmonary HTN Code(s): I27.20 - PULMONARY HYPERTENSION, UNSPECIFIED (12) Dyspnea Code(s): R06.00 - DYSPNEA, UNSPECIFIED (13) Cellulitis Code(s): L03.90 - CELLULITIS, UNSPECIFIED Assessment/Plan IMP CELLULITIS S/P MECHANICAL FALL CHF ASHD S/P PCI OSAS AFIB H/O DVT/PE PULMONARY HTN MORBID OBESITY CKD PLAN LASIX O2 ABX INHALED BRONCHODILATORS NIPPV AC DR ESCOBAR
[2017-07-22] MEDS ORDERED: ROPIVACAINE HCL 0.5% 30ML VIAL ONE (12:58)
[2017-07-22] MEDS ORDERED: DEXAMETHASONE SOD PHOSPHATE/PF 10 MG/ML SDV ONE (12:58)
[2017-07-22] MEDS ORDERED: MIDAZOLAM HCL 2 MG/2 ML SINGLE DOSE VIAL ONE ×2 (13:14)
[2017-07-22] MEDS ORDERED: ceFAZolin SODIUM 1 GM VIAL ONE (14:24)
[2017-07-22] MEDS ORDERED: ceFAZolin SODIUM 1 GM VIAL IVPB ONE (14:25)
[2017-07-22] MEDS ORDERED: BACITRACIN 50,000 UNITS VIAL TP ONE ×2 (14:32→14:39)
--- NOTE | 2017-07-22 14:37 | PN ---
Progress Note, Physician History of Present Illness: Pt seen and examined at bedside. He had a fall today and suffered a leg fracture. He is going to surgery today. - Current Medication List Current Medications: Active Medications Acetaminophen (Tylenol -) 650 mg PO Q8H PRN PRN Reason: FEVER Last Admin: 07/20/17 16:18 Dose: 650 mg Albuterol/Ipratropium (Duoneb -) 1 amp NEB Q4H PRN PRN Reason: SHORTNESS OF BREATH Aspirin (Asa -) 81 mg PO DAILY [facility] Last Admin: 07/22/17 11:27 Dose: Not Given Atenolol (Tenormin -) 100 mg PO BID [facility] Last Admin: 07/22/17 09:53 Dose: 100 mg Atorvastatin Calcium (Lipitor -) 80 mg PO HS [facility] Last Admin: 07/21/17 22:11 Dose: 80 mg Bacitracin (Bacitracin -) 1 applic TP DAILY [facility] Last Admin: 07/22/17 09:56 Dose: 1 applic Colchicine (Colcrys -) 0.6 mg PO DAILY [facility] Last Admin: 07/22/17 11:28 Dose: 0.6 mg Collagenase (Santyl -) 1 applic TP DAILY [facility] Last Admin: 07/22/17 10:17 Dose: 1 applic Febuxostat (Uloric -) 40 mg PO DAILY [facility] Last Admin: 07/22/17 11:31 Dose: 40 mg Furosemide (Lasix Injection -) 80 mg IVPUSH DAILY [facility] Glipizide (Glucotrol Xl -) 10 mg PO BID [facility] Last Admin: 07/22/17 11:31 Dose: 10 mg Heparin Sodium (Porcine) (Heparin -) 5,000 unit IVPUSH PRN PRN PRN Reason: HEPARIN PROTOCOL Last Admin: 07/19/17 08:49 Dose: 5,000 unit Heparin Sodium (Porcine) (Heparin -) 1,000 unit IVPUSH PRN PRN PRN Reason: HEPARIN PROTOCOL Last Admin: 07/22/17 02:10 Dose: 1,000 unit Heparin Sodium (Porcine) 25, (000 unit/ Sodium Chloride) 500 mls @ 22 mls/hr IV TITR NEIL; 1,100 UNIT/HR PRN Reason: Protocol Last Admin: 07/22/17 09:52 Dose: 2,000 unit/hr, 40 mls/hr Vancomycin HCl 1,000 mg/ (Dextrose) 250 mls @ 200 mls/hr IVPB Q24H [facility] PRN Reason: Protocol Last Admin: 07/21/17 15:15 Dose: 200 mls/hr Ceftazidime 1 gm/ Dextrose 50 mls @ 100 mls/hr IVPB Q8H-IV [facility] Last Admin: 07/22/17 09:50 Dose: 100 mls/hr Insulin Aspart (Novolog Vial Sliding Scale -) 1 vial SQ ACHS [facility] PRN Reason: Protocol Last Admin: 07/22/17 11:34 Dose: 8 units Insulin Detemir (Levemir Vial) 80 units SQ DAILY@0700 [facility] Last Admin: 07/22/17 06:21 Dose: 80 units Levothyroxine Sodium (Synthroid -) 100 mcg PO DAILY@0700 [facility] Last Admin: 07/22/17 06:21 Dose: 100 mcg Liraglutide (Victoza -) 1.8 mg SQ DAILY@0700 [facility] Last Admin: 07/22/17 06:26 Dose: 1.8 mg Oxycodone HCl (Roxicodone -) 10 mg PO HS [facility] Last Admin: 07/21/17 22:12 Dose: 10 mg - Objective Vital Signs: Vital Signs Temperature 98.1 F 07/22/17 09:00 Pulse Rate 85 07/22/17 09:00 Respiratory Rate 18 07/22/17 09:00 Blood Pressure 113/73 07/22/17 09:00 O2 Sat by Pulse Oximetry (%) 96 07/22/17 08:56 Constitutional: Yes: Calm Eyes: Yes: Conjunctiva Clear HENT: Yes: Atraumatic Neck: Yes: Supple Cardiovascular: Yes: S1, S2 Respiratory: Yes: CTA Bilaterally Gastrointestinal: Yes: Soft, Abdomen, Obese Genitourinary: Yes: WNL Musculoskeletal: Yes: Other (s/p leg fracture) Edema: Yes Edema: LLE: 2+, RLE: 2+ Integumentary: Yes: Venous Stasis Changes Wound/Incision: Yes: Other (leg wrapped) Neurological: Yes: Oriented Psychiatric: Yes: Oriented Labs: CBC, BMP 07/22/17 07:00 07/22/17 07:00 INR, PTT INR 1.32 (0.82-1.09) H 07/20/17 06:30 Problem List - Problems (1) CKD (chronic kidney disease) Code(s): N18.9 - CHRONIC KIDNEY DISEASE, UNSPECIFIED (2) Accident due to mechanical fall without injury Code(s): W19.XXXA - UNSPECIFIED FALL, INITIAL ENCOUNTER (3) Acute renal failure (ARF) Code(s): N17.9 - ACUTE KIDNEY FAILURE, UNSPECIFIED Assessment/Plan Current Medications Generic Name Dose Route Start Last Admin Trade Name Freq PRN Reason Stop Dose Admin Acetaminophen 650 mg 07/12/17 08:03 07/20/17 16:18 Tylenol - PO 650 mg Q8H PRN Administration FEVER Albuterol/Ipratropium 1 amp 07/21/17 13:45 Duoneb - NEB Q4H PRN SHORTNESS OF BREATH Aspirin 81 mg 07/20/17 10:00 07/22/17 11:27 Asa - PO Not Given DAILY [facility] Atenolol 100 mg 07/12/17 10:00 07/22/17 09:53 Tenormin - PO 100 mg BID [facility] Administration Atorvastatin Calcium 80 mg 07/12/17 22:00 07/21/17 22:11 Lipitor - PO 80 mg HS [facility] Administration Bacitracin 1 applic 07/14/17 17:15 07/22/17 09:56 Bacitracin - TP 1 applic DAILY [facility] Administration Colchicine 0.6 mg 07/19/17 10:00 07/22/17 11:28 Colcrys - PO 0.6 mg DAILY [facility] Administration Collagenase 1 applic 07/12/17 10:00 07/22/17 10:17 Santyl - TP 1 applic DAILY [facility] Administration Febuxostat 40 mg 07/21/17 10:00 07/22/17 11:31 Uloric - PO 40 mg DAILY [facility] Administration Furosemide 80 mg 07/23/17 10:00 Lasix Injection - IVPUSH DAILY [facility] Glipizide 10 mg 07/12/17 10:00 07/22/17 11:31 Glucotrol Xl - PO 10 mg BID [facility] Administration Heparin Sodium (Porcine) 5,000 unit 07/17/17 12:00 07/19/17 08:49 Heparin - IVPUSH 5,000 unit PRN PRN Administration HEPARIN PROTOCOL Heparin Sodium (Porcine) 1,000 unit 07/17/17 12:00 07/22/17 02:10 Heparin - IVPUSH 1,000 unit PRN PRN Administration HEPARIN PROTOCOL Heparin Sodium (Porcine) 25, 500 mls @ 22 mls/hr 07/18/17 09:00 07/22/17 09: 52 000 unit/ Sodium Chloride IV 2,000 unit/hr TITR NEIL 40 mls/hr Protocol Administration 1,100 UNIT/HR Vancomycin HCl 1,000 mg/ 250 mls @ 200 mls/hr 07/17/17 15:00 07/21/17 15:15 Dextrose IVPB 200 mls/hr Q24H [facility] Administration Protocol Ceftazidime 1 gm/ Dextrose 50 mls @ 100 mls/hr 07/19/17 13:45 07/22/17 09:50 IVPB 100 mls/hr Q8H-IV [facility] Administration Insulin Aspart 1 vial 07/14/17 11:15 07/22/17 11:34 Novolog Vial Sliding Scale - SQ 8 units ACHS [facility] Administration Protocol Insulin Detemir 80 units 07/22/17 07:00 07/22/17 06:21 Levemir Vial SQ 80 units DAILY@0700 [facility] Administration Levothyroxine Sodium 100 mcg 07/12/17 07:00 07/22/17 06:21 Synthroid - PO 100 mcg DAILY@0700 [facility] Administration Liraglutide 1.8 mg 07/13/17 07:00 07/22/17 06:26 Victoza - SQ 1.8 mg DAILY@0700 [facility] Administration Oxycodone HCl 10 mg 07/12/17 22:00 07/21/17 22:12 Roxicodone - PO 10 mg HS [facility] Administration Impression 1. CKD 2. KRUNAL 3. volume overload 4. obesity 5. CAD 6. cellulitis 7. s/p fall 8. a-fib 9. DM 10. hypothyroidism 11. HLD 12. CHF 13. s/p leg fracture Plan - renal function continues to improve - pt going to OR for repair of fracture - repeat labs in am - volume status slowly improving - repeat labs in am - keep jasmyne on hold for now - monitor vanco levels - will follow Dr Quiroz
--- NOTE | 2017-07-22 14:56 | CONS ---
DATE OF CONSULTATION: 07/22/2017 ORTHOPEDIC CONSULTATION HISTORY OF PRESENT ILLNESS: Patient is a 61-year-old male with multiple medical conditions including, sleep apnea, end-stage renal disease, diabetes, atrial fibrillation, status post pulmonary embolus x2, lower extremity DVTs, cardiac stenting who was admitted to the hospital for an infected wound in his right lower extremity who got out of bed this morning and twisted and sustained an open fracture dislocation of his left ankle. A rapid response team was called to the floor, and they initially called the orthopedist on-call who could not come then they called myself, Dr. Thayer, who has an office across the street from the hospital to see if I could come in to treat the patient. Upon presentation to the patient, patient was lying in bed with the medial tibia extending from a 4- to 5-cm transverse laceration on the medial side of the ankle. The lower extremity otherwise calf was soft and nontender and had adequate perfusion of the toes with good capillary refill. No palpable pulses were palpated, but neither were there palpable pulses on the contralateral, uninjured side. A closed reduction was immediately performed at the bedside and placement in a U-splint. Patient was made n.p.o. and arranged for emergency operative intervention today. Patient was on IV heparin for his atrial fibrillation which was immediately stopped. A bedside x-ray was performed which was only a lateral which showed the lateral dislocation of the ankle and the medial displacement of the distal tibia. No AP mortise was obtained, but sufficient evaluation revealed the dislocation as suspected. IMPRESSION: Open fracture dislocation in a patient with multiple medical conditions as enumerated previously. RECOMMENDATIONS: I had a long discussion with the patient and with the family in great detail regarding the potential risks of the surgery including, but not limited to, chronic infection (patient is being treated for MRSA infection on the right side and likely will develop MRSA in this ankle as well), possible BKA, possible AKA, possible pulmonary embolus, clots, neurovascular damage, and potentially loss of life. I recommended that patient obtain an external fixation to hold the fracture in place until it heals. Open reduction and internal fixation would have marked complication as patient has peripheral vascular disease, diabetes, morbid obesity, and with an open fracture. Family understands the risks, benefits, and alternatives, and would like to go forward. Patient is apprised of that as well. I had this talk with the patient in depth with himself and then with multiple family members. Anesthesia has discussed the case with him as well, and to use a block instead of any general anesthesia due to his significant sleep apnea, but they realize patient may need to go to sleep during the operation and that may complication his situation as well. Patient was thus booked for the operative intervention which will happen as soon as the operating room can get free and the equipment can be ready for the procedure. CHERYL THAYER M.D. [id number]
--- NOTE | 2017-07-22 15:45 | OP ---
Operative Note - Note: Operative Date: 07/22/17 Pre-Operative Diagnosis: open fracture dislocation of left ankle Operation: I&D left ankle with X-Fix Post-Operative Diagnosis: Same as Pre-op Surgeon: Dandre Thayer Anesthesia: Local Estimated Blood Loss (mls): 100 Operative Report Dictated: Yes
--- NOTE | 2017-07-22 15:53 | PN ---
Progress Note, Physician Chief Complaint: events of this AM reviewed Fell and sustained open ankle fracture requiring emergent operative intervention as outlined by Dr. Thayer. History of Present Illness: seen and examined in PACU post external fixator Alert, oriented No chest pain or SOB A regional block was used. - Current Medication List Current Medications: Active Medications Acetaminophen (Tylenol -) 650 mg PO Q8H PRN PRN Reason: FEVER Last Admin: 07/20/17 16:18 Dose: 650 mg Albuterol/Ipratropium (Duoneb -) 1 amp NEB Q4H PRN PRN Reason: SHORTNESS OF BREATH Aspirin (Asa -) 81 mg PO DAILY [facility] Last Admin: 07/22/17 11:27 Dose: Not Given Atenolol (Tenormin -) 100 mg PO BID [facility] Last Admin: 07/22/17 09:53 Dose: 100 mg Atorvastatin Calcium (Lipitor -) 80 mg PO HS [facility] Last Admin: 07/21/17 22:11 Dose: 80 mg Bacitracin (Bacitracin -) 1 applic TP DAILY [facility] Last Admin: 07/22/17 09:56 Dose: 1 applic Colchicine (Colcrys -) 0.6 mg PO DAILY [facility] Last Admin: 07/22/17 11:28 Dose: 0.6 mg Collagenase (Santyl -) 1 applic TP DAILY [facility] Last Admin: 07/22/17 10:17 Dose: 1 applic Febuxostat (Uloric -) 40 mg PO DAILY [facility] Last Admin: 07/22/17 11:31 Dose: 40 mg Furosemide (Lasix Injection -) 80 mg IVPUSH DAILY [facility] Glipizide (Glucotrol Xl -) 10 mg PO BID [facility] Last Admin: 07/22/17 11:31 Dose: 10 mg Heparin Sodium (Porcine) (Heparin -) 5,000 unit IVPUSH PRN PRN PRN Reason: HEPARIN PROTOCOL Last Admin: 07/19/17 08:49 Dose: 5,000 unit Heparin Sodium (Porcine) (Heparin -) 1,000 unit IVPUSH PRN PRN PRN Reason: HEPARIN PROTOCOL Last Admin: 07/22/17 02:10 Dose: 1,000 unit Heparin Sodium (Porcine) 25, (000 unit/ Sodium Chloride) 500 mls @ 22 mls/hr IV TITR [facility]; 1,100 UNIT/HR PRN Reason: Protocol Last Admin: 07/22/17 09:52 Dose: 2,000 unit/hr, 40 mls/hr Vancomycin HCl 1,000 mg/ (Dextrose) 250 mls @ 200 mls/hr IVPB Q24H [facility] PRN Reason: Protocol Last Admin: 07/21/17 15:15 Dose: 200 mls/hr Ceftazidime 1 gm/ Dextrose 50 mls @ 100 mls/hr IVPB Q8H-IV [facility] Last Admin: 07/22/17 09:50 Dose: 100 mls/hr Insulin Aspart (Novolog Vial Sliding Scale -) 1 vial SQ ACHS [facility] PRN Reason: Protocol Last Admin: 07/22/17 11:34 Dose: 8 units Insulin Detemir (Levemir Vial) 80 units SQ DAILY@0700 [facility] Last Admin: 07/22/17 06:21 Dose: 80 units Levothyroxine Sodium (Synthroid -) 100 mcg PO DAILY@0700 [facility] Last Admin: 07/22/17 06:21 Dose: 100 mcg Liraglutide (Victoza -) 1.8 mg SQ DAILY@0700 [facility] Last Admin: 07/22/17 06:26 Dose: 1.8 mg Oxycodone HCl (Roxicodone -) 10 mg PO HS [facility] Last Admin: 07/21/17 22:12 Dose: 10 mg - Objective Vital Signs: Vital Signs Temperature 98.1 F 07/22/17 09:00 Pulse Rate 85 07/22/17 09:00 Respiratory Rate 18 07/22/17 09:00 Blood Pressure 113/73 07/22/17 09:00 O2 Sat by Pulse Oximetry (%) 96 07/22/17 08:56 Constitutional: Yes: No Distress, Calm Eyes: Yes: Conjunctiva Clear Cardiovascular: Yes: Pulse Irregular Respiratory: Yes: CTA Bilaterally Gastrointestinal: Yes: Soft, Abdomen, Obese Edema: Yes Edema: LLE: 1+ (ex-fixator) Neurological: Yes: Alert, Oriented ...Motor Strength: WNL Labs: CBC, BMP 07/22/17 07:00 07/22/17 07:00 INR, PTT INR 1.32 (0.82-1.09) H 07/20/17 06:30 Assessment/Plan IMP: Mechanical fall resulting in spontaneous open fracture left ankle requiring emergent operative intervention, ext. fixation ARF, acute on chronic, now improved. RLE cellulitis Acute Gout Morbid obesity PHTN Chronic AF CAD s/p PCI Acute on chronic diastolic CHF REC: 1. Post op management as outlined by ortho 2. Resume heparin gtts without bolus when deemed safe from ortho standpoint. PTT goal 50-70. 3. Renal fxn continues to improve on IV Lasix, follow renal function closely.
--- NOTE | 2017-07-22 15:58 | PN ---
Progress Note, Physician History of Present Illness: history noted compound fracture at ankle reduced by bedside being taken to the or - Current Medication List Current Medications: Active Medications Acetaminophen (Tylenol -) 650 mg PO Q8H PRN PRN Reason: FEVER Last Admin: 07/20/17 16:18 Dose: 650 mg Albuterol/Ipratropium (Duoneb -) 1 amp NEB Q4H PRN PRN Reason: SHORTNESS OF BREATH Aspirin (Asa -) 81 mg PO DAILY [facility] Last Admin: 07/22/17 11:27 Dose: Not Given Atenolol (Tenormin -) 100 mg PO BID [facility] Last Admin: 07/22/17 09:53 Dose: 100 mg Atorvastatin Calcium (Lipitor -) 80 mg PO HS [facility] Last Admin: 07/21/17 22:11 Dose: 80 mg Bacitracin (Bacitracin -) 1 applic TP DAILY [facility] Last Admin: 07/22/17 09:56 Dose: 1 applic Colchicine (Colcrys -) 0.6 mg PO DAILY [facility] Last Admin: 07/22/17 11:28 Dose: 0.6 mg Collagenase (Santyl -) 1 applic TP DAILY [facility] Last Admin: 07/22/17 10:17 Dose: 1 applic Febuxostat (Uloric -) 40 mg PO DAILY [facility] Last Admin: 07/22/17 11:31 Dose: 40 mg Fentanyl (Sublimaze Injection -) 25 mcg IVPUSH [id number] PRN PRN Reason: PAIN-PACU ORDER X 4 DOSES ONLY Furosemide (Lasix Injection -) 80 mg IVPUSH DAILY [facility] Glipizide (Glucotrol Xl -) 10 mg PO BID [facility] Last Admin: 07/22/17 11:31 Dose: 10 mg Heparin Sodium (Porcine) (Heparin -) 5,000 unit IVPUSH PRN PRN PRN Reason: HEPARIN PROTOCOL Last Admin: 07/19/17 08:49 Dose: 5,000 unit Heparin Sodium (Porcine) (Heparin -) 1,000 unit IVPUSH PRN PRN PRN Reason: HEPARIN PROTOCOL Last Admin: 07/22/17 02:10 Dose: 1,000 unit Heparin Sodium (Porcine) 25, (000 unit/ Sodium Chloride) 500 mls @ 22 mls/hr IV TITR NEIL; 1,100 UNIT/HR PRN Reason: Protocol Last Admin: 07/22/17 09:52 Dose: 2,000 unit/hr, 40 mls/hr Vancomycin HCl 1,000 mg/ (Dextrose) 250 mls @ 200 mls/hr IVPB Q24H [facility] PRN Reason: Protocol Last Admin: 07/21/17 15:15 Dose: 200 mls/hr Ceftazidime 1 gm/ Dextrose 50 mls @ 100 mls/hr IVPB Q8H-IV [facility] Last Admin: 07/22/17 09:50 Dose: 100 mls/hr Insulin Aspart (Novolog Vial Sliding Scale -) 1 vial SQ ACHS [facility] PRN Reason: Protocol Last Admin: 07/22/17 11:34 Dose: 8 units Insulin Detemir (Levemir Vial) 80 units SQ DAILY@0700 [facility] Last Admin: 07/22/17 06:21 Dose: 80 units Levothyroxine Sodium (Synthroid -) 100 mcg PO DAILY@0700 [facility] Last Admin: 07/22/17 06:21 Dose: 100 mcg Liraglutide (Victoza -) 1.8 mg SQ DAILY@0700 [facility] Last Admin: 07/22/17 06:26 Dose: 1.8 mg Oxycodone HCl (Roxicodone -) 10 mg PO HS [facility] Last Admin: 07/21/17 22:12 Dose: 10 mg - Objective Vital Signs: Vital Signs Temperature 98.1 F 07/22/17 09:00 Pulse Rate 85 07/22/17 09:00 Respiratory Rate 18 07/22/17 09:00 Blood Pressure 113/73 07/22/17 09:00 O2 Sat by Pulse Oximetry (%) 96 07/22/17 08:56 Constitutional: Yes: Moderate Distress, Obese (severe), Other Cardiovascular: Yes: Regular Rate and Rhythm Respiratory: Yes: Poor Air Entry Extremities: Yes: Other (compound fracture left foot) Neurological: Yes: Alert, Oriented Psychiatric: Yes: Alert Labs: CBC, BMP 07/22/17 07:00 07/22/17 07:00 INR, PTT INR 1.32 (0.82-1.09) H 07/20/17 06:30 Assessment/Plan Problem List - Problems (1) Accident due to mechanical fall without injury Code(s): W19.XXXA - UNSPECIFIED FALL, INITIAL ENCOUNTER (2) Atrial fibrillation Code(s): I48.91 - UNSPECIFIED ATRIAL FIBRILLATION Qualifiers: Atrial fibrillation type: chronic Qualified Code(s): I48.2 - Chronic atrial fibrillation (3) CAD (coronary artery disease) Code(s): I25.10 - ATHSCL HEART DISEASE OF [place] CORONARY ARTERY W/O ANG PCTRS (4) CHF (congestive heart failure) Code(s): I50.9 - HEART FAILURE, UNSPECIFIED (5) DVT (deep venous thrombosis) Code(s): I82.409 - ACUTE EMBOLISM AND THOMBOS UNSP DEEP VN UNSP LOWER EXTREMITY Qualifiers: DVT location: lower extremity Affected thrombotic vein of extremity: femoral Chronicity: chronic Laterality: right Qualified Code(s): I82.511 - Chronic embolism and thrombosis of right femoral vein (6) Obesities, morbid Code(s): E66.01 - MORBID (SEVERE) OBESITY DUE TO EXCESS CALORIES (7) Pulmonary embolism Code(s): I26.99 - OTHER PULMONARY EMBOLISM WITHOUT ACUTE COR PULMONALE (8) Venous (peripheral) insufficiency Code(s): I87.2 - VENOUS INSUFFICIENCY (CHRONIC) (PERIPHERAL) (9) Sleep apnea Code(s): G47.30 - SLEEP APNEA, UNSPECIFIED (10) COPD (chronic obstructive pulmonary disease) Code(s): J44.9 - CHRONIC OBSTRUCTIVE PULMONARY DISEASE, UNSPECIFIED (11) Pulmonary HTN Code(s): I27.20 - PULMONARY HYPERTENSION, UNSPECIFIED (12) Dyspnea Code(s): R06.00 - DYSPNEA, UNSPECIFIED (13) Cellulitis Code(s): L03.90 - CELLULITIS, UNSPECIFIED 14) wound infection 15 leukocytosis 16 compound fracture left leg plan continue abx will have to make a decision now when to deescalte as his wounds are infected and now with compound fracture
[2017-07-22] MEDS: VANCOMYCIN 1,000 MG in DEXTROSE 5%-WATER - 250 ML IVPB SCH (17:33)
--- NOTE | 2017-07-22 17:35 | OP ---
DATE OF OPERATION: 07/22/2017 PREOPERATIVE DIAGNOSIS: Left bimalleolar open fracture-dislocation of the left ankle. POSTOPERATIVE DIAGNOSIS: Left bimalleolar open fracture-dislocation of the left ankle. PROCEDURE: Irrigation, debridement and application of external fixator on the left ankle. SURGICAL ATTENDING: Dandre Thayer MD ANESTHESIA: Regional. CLOSURE: A Jonah II external fixator with appropriate pins, 3-0 nylon for the skin. ESTIMATED BLOOD LOSS: Approximately 100 mL. COMPLICATIONS: None. CONDITION: To Recovery in stable condition. INDICATION OF OPERATIVE PROCEDURE: Patient is a 61-year-old male who was status post a fall in the hospital while being an inpatient, being treated for a cellulitis and a wound of the right ankle. He fell on the floor and fracture-dislocated his left ankle with an open fracture. Provisional closed reduction was performed on the floor and the patient was indicated for external fixation. Patient with multiple medical comorbidities including insulin-dependent diabetes, end-stage renal disease, atrial fibrillation, sleep apnea, status post multiple DVTs and pulmonary emboli, morbid obesity, peripheral vascular insufficiency. Due to these comorbidities and the open fracture, we elected to go forward with an external fixator. The patient and family were apprised of the potential complications, including but not limited to infection, vascular compromise, possible need for a BKA/AKA, possible loss of life due to the extreme nature of the injury and the multiple comorbidities. DESCRIPTION OF OPERATIVE PROCEDURE: Patient taken to the operating room on July 22, 2017. Regional anesthesia was performed by the anesthesiologist with a popliteal block as well as a femoral block. The left lower extremity was then prepped and draped in usual sterile fashion. Patient had already been on ceftriaxone and vancomycin for the wound in his right leg. Two grams of Kefzol were given prophylactically prior to this case. The left lower extremity was prepped and draped in usual sterile fashion. There was about a 7-cm transverse laceration on the medial side of the distal tibia around the ankle joint where the bone had pushed out the soft tissue. The ankle was reduced. A pulsed antibiotic irrigation of greater than 6 L was irrigated throughout the ankle joint. The reduction was confirmed by use of fluoroscopy. The medial malleolus was found to be off and was still floating in the wound but was left. It had soft tissue attached to it and was left displaced but inside the body. The lateral malleolus was also found to be off somewhat but the mortise was mostly restored on AP, mortise and lateral views. Three bicortical pins were placed in the proximal tibia. One transcalcaneal pin was placed in the posterior calcaneus. Two pins were placed, one in the 5th and one in the 1st metatarsal base. Two short pins were placed along the plane of the foot from the calcaneal pin to the metatarsal pins, one medially and one laterally. Then, two long pins were placed from the proximal pins, one down the medial side, one down the lateral side, setting up a delta frame for the ankle. Excellent rigidity of the construct was obtained. An x-ray revealed the mortise was in place on the AP, lateral and mortise views. The medial wound was then irrigated out some more and then the transverse laceration was closed using 3-0 nylon horizontal mattress sutures. Xeroform was placed over the incision, a sterile pressure dressing, followed by Xeroform strips on each one of the pins. Patient was awakened from anesthesia and transferred to the recovery room in stable condition. No complications. Postoperatively, the patient had a warm extremity with adequate capillary refill. He was transferred to the recovery room. Patient will need postoperative antibiotic, DVT prophylaxis. An additional U-Bar was placed underneath the Achilles, attaching to the two side bars to keep his heel off the bed. This has nothing to do with the fixation of the device but was just to aid in avoiding pressure ulceration on the calcaneus. That was applied to the two bar clamps. No complications. Maria C [id number]
[2017-07-22] MEDS: ATORVASTATIN CA 80 MG TABLET (FP) PO SCH (21:41)
[2017-07-22] MEDS: oxyCODONE HCL 5 MG TABLET PO SCH (21:41)
[2017-07-22] MEDS ORDERED: PT OWN MED DRAWER 7, Y5N ONE (22:00)
[2017-07-23] MEDS: CEFTAZIDIME PENTAHYDRATE 1 GM in DEXTROSE 5%-WATER - 50 ML IVPB SCH ×3 (01:04→18:54)
[2017-07-23] MEDS ORDERED: PT OWN MED DRAWER 7, Y5N ONE ×4 (05:24→18:40)
[2017-07-23] MEDS: LEVOTHYROXINE NA 100 MCG TABLET (FP) PO SCH (06:17)
[2017-07-23] MEDS: INSULIN SLIDING SCALE (NOVOLOG) 1 VIAL SQ SCH ×4 (06:17→21:51)
[2017-07-23] MEDS: INSULIN (LEVEMIR) 100 UNITS/ML UNITS SQ SCH (06:37)
[2017-07-23] MEDS: LIRAGLUTIDE 0.6 MG/0.1 ML PEN.INJCTR SQ SCH (06:38)
--- NOTE | 2017-07-23 08:15 | PN ---
Progress Note, Physician Chief Complaint: Patient undernt external fixation for left ankle fracture yesterday. Today comfortable in bed, resting on BIPAP History of Present Illness: Morbid obesity. ASHLEY. Bilateral PE. Pulmonary HTN-CTEPH AND CLASS 2 PAH. CHF-mostly diastolic. ASHD. STEMI in 2016 with MICHAEL x2 placed at [place]. Chronic A.Fib-on a/c-Xarelto/ASA now. Gout. 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 Chronic DVT Right thigh, Stasis ulcers, edema. Chronic wound right Ankle/dobbs-RX at [facility]-groing multiple organisms. - Current Medication List Current Medications: Active Medications Acetaminophen (Tylenol -) 650 mg PO Q8H PRN PRN Reason: FEVER Last Admin: 07/20/17 16:18 Dose: 650 mg Albuterol/Ipratropium (Duoneb -) 1 amp NEB Q4H PRN PRN Reason: SHORTNESS OF BREATH Aspirin (Asa -) 81 mg PO DAILY [facility] Last Admin: 07/22/17 11:27 Dose: Not Given Atenolol (Tenormin -) 100 mg PO BID [facility] Last Admin: 07/22/17 21:42 Dose: 100 mg Atorvastatin Calcium (Lipitor -) 80 mg PO HS [facility] Last Admin: 07/22/17 21:41 Dose: 80 mg Bacitracin (Bacitracin -) 1 applic TP DAILY [facility] Last Admin: 07/22/17 09:56 Dose: 1 applic Colchicine (Colcrys -) 0.6 mg PO DAILY [facility] Last Admin: 07/22/17 11:28 Dose: 0.6 mg Collagenase (Santyl -) 1 applic TP DAILY [facility] Last Admin: 07/22/17 10:17 Dose: 1 applic Febuxostat (Uloric -) 40 mg PO DAILY [facility] Last Admin: 07/22/17 11:31 Dose: 40 mg Fentanyl (Sublimaze Injection -) 25 mcg IVPUSH [id number] PRN PRN Reason: PAIN-PACU ORDER X 4 DOSES ONLY Furosemide (Lasix Injection -) 80 mg IVPUSH DAILY [facility] Glipizide (Glucotrol Xl -) 10 mg PO BID [facility] Last Admin: 07/22/17 21:48 Dose: 10 mg Heparin Sodium (Porcine) (Heparin -) 5,000 unit IVPUSH PRN PRN PRN Reason: HEPARIN PROTOCOL Last Admin: 07/19/17 08:49 Dose: 5,000 unit Heparin Sodium (Porcine) (Heparin -) 1,000 unit IVPUSH PRN PRN PRN Reason: HEPARIN PROTOCOL Last Admin: 07/22/17 02:10 Dose: 1,000 unit Heparin Sodium (Porcine) 25, (000 unit/ Sodium Chloride) 500 mls @ 22 mls/hr IV TITR NEIL; 1,100 UNIT/HR PRN Reason: Protocol Last Admin: 07/23/17 00:00 Dose: 2,000 unit/hr, 40 mls/hr Vancomycin HCl 1,000 mg/ (Dextrose) 250 mls @ 200 mls/hr IVPB Q24H NEIL PRN Reason: Protocol Last Admin: 07/22/17 17:33 Dose: 200 mls/hr Ceftazidime 1 gm/ Dextrose 50 mls @ 100 mls/hr IVPB Q8H-IV NEIL Last Admin: 07/23/17 01:04 Dose: 100 mls/hr Insulin Aspart (Novolog Vial Sliding Scale -) 1 vial SQ ACHS NEIL PRN Reason: Protocol Last Admin: 07/23/17 06:17 Dose: Not Given Insulin Detemir (Levemir Vial) 80 units SQ DAILY@0700 [facility] Last Admin: 07/23/17 06:37 Dose: 80 units Levothyroxine Sodium (Synthroid -) 100 mcg PO DAILY@0700 [facility] Last Admin: 07/23/17 06:17 Dose: 100 mcg Liraglutide (Victoza -) 1.8 mg SQ DAILY@0700 [facility] Last Admin: 07/23/17 06:38 Dose: 1.8 mg Oxycodone HCl (Roxicodone -) 10 mg PO HS [facility] Last Admin: 07/22/17 21:41 Dose: 10 mg - Objective Vital Signs: Vital Signs Temperature 97.7 F 07/23/17 02:00 Pulse Rate 81 07/23/17 02:00 Respiratory Rate 16 07/23/17 02:00 Blood Pressure 122/77 07/23/17 02:00 O2 Sat by Pulse Oximetry (%) 98 07/22/17 21:00 Constitutional: Yes: Calm, Mild Distress Eyes: Yes: Conjunctiva Clear, EOM Intact HENT: Yes: Atraumatic, Normocephalic Neck: Yes: Supple, Trachea Midline. No: Tenderness Cardiovascular: Yes: Pulse Irregular, S1, S2. No: JVD Respiratory: Yes: Regular, CTA Bilaterally Gastrointestinal: Yes: Normal Bowel Sounds, Soft, Abdomen, Obese ...Rectal Exam: Yes: Deferred Genitourinary: No: Anuria Breast(s): Yes: WNL Musculoskeletal: Yes: Other (Left ankle-external fixator in place) Extremities: Yes: Other (right ankle wounds) Edema: LLE: 2+, RLE: 2+ Peripheral Pulses WNL: No Neurological: Yes: Alert, Oriented. No: Aphasia, Dysarthria, Lethargy ...Motor Strength: WNL Psychiatric: Yes: WNL Labs: CBC, BMP 07/22/17 07:00 07/22/17 07:00 INR, PTT INR 1.32 (0.82-1.09) H 07/20/17 06:30 Problem List - Problems (1) Atrial fibrillation Assessment/Plan: continue rate control, on IV Heparin now-will have to change to oral a/c when stable. Code(s): I48.91 - UNSPECIFIED ATRIAL FIBRILLATION Qualifiers: Atrial fibrillation type: chronic Qualified Code(s): I48.2 - Chronic atrial fibrillation (2) CHF (congestive heart failure) Assessment/Plan: OFF UVALDO nephrology consult noted Continue Lasix though noted worsening renal fx Decrease PO fluids intake-restriction 1400 cc Code(s): I50.9 - HEART FAILURE, UNSPECIFIED (3) Cellulitis of right leg Assessment/Plan: Continue IV ABX for the next 48 hrs. and switch to PO Wound care Apply UVALDO bandages for venous stasis Code(s): L03.115 - CELLULITIS OF RIGHT LOWER LIMB (4) Diabetes Assessment/Plan: Increase Levemir 80 units QD Novolog sliding scale Code(s): E11.9 - TYPE 2 DIABETES MELLITUS WITHOUT COMPLICATIONS Qualifiers: Diabetes mellitus type: type 2 Diabetes mellitus complication status: with circulatory complication (5) Acute renal failure (ARF) Assessment/Plan: stable BUN /Cr-will follow Code(s): N17.9 - ACUTE KIDNEY FAILURE, UNSPECIFIED (6) Acute renal insufficiency Assessment/Plan: Acute renal insufficiency in CKD Diff dx kewsyyvw-bon-ygniw insufficiency, ATN and hypotension due to sepsis and infection. Code(s): N28.9 - DISORDER OF KIDNEY AND URETER, UNSPECIFIED (7) Acute gouty arthritis Assessment/Plan: Uloric, Colchicin PO. Code(s): M10.9 - GOUT, UNSPECIFIED (8) Open left ankle fracture Assessment/Plan: S/p external fixation Ortho f/u Pain management IV ABX per ID Code(s): S82.892B - OTH FRACTURE OF LEFT LOWER LEG, INIT FOR OPN FX TYPE I/2 Qualifiers: Encounter type: initial encounter
[2017-07-23 09:06] LABS: HEMATOCRIT 26.6 % (35.4-49); HEMOGLOBIN 8.7 GM/dL (11.7-16.9); MCH 31.6 pg (25.7-33.7); MCHC 32.7 g/dl (32.0-35.9); MEAN CELL VOLUME 96.6 fl (80-96); MEAN PLT VOLUME 7.6 fl (7.5-11.1); PLATELET COUNT 198 K/MM3 (134-434); RBC 2.75 M/mm3 (4.00-5.60); RDW 17.3 % (11.9-15.9); WHITE BLOOD COUNT 12.5 K/mm3 (4.0-10.0)
--- NOTE | 2017-07-23 09:08 | PN ---
Progress Note, Physician Chief Complaint: no acute distress - Current Medication List Current Medications: Active Medications Acetaminophen (Tylenol -) 650 mg PO Q8H PRN PRN Reason: FEVER Last Admin: 07/20/17 16:18 Dose: 650 mg Albuterol/Ipratropium (Duoneb -) 1 amp NEB Q4H PRN PRN Reason: SHORTNESS OF BREATH Aspirin (Asa -) 81 mg PO DAILY [facility] Last Admin: 07/22/17 11:27 Dose: Not Given Atenolol (Tenormin -) 100 mg PO BID [facility] Last Admin: 07/22/17 21:42 Dose: 100 mg Atorvastatin Calcium (Lipitor -) 80 mg PO HS [facility] Last Admin: 07/22/17 21:41 Dose: 80 mg Bacitracin (Bacitracin -) 1 applic TP DAILY [facility] Last Admin: 07/22/17 09:56 Dose: 1 applic Colchicine (Colcrys -) 0.6 mg PO DAILY [facility] Last Admin: 07/22/17 11:28 Dose: 0.6 mg Collagenase (Santyl -) 1 applic TP DAILY [facility] Last Admin: 07/22/17 10:17 Dose: 1 applic Febuxostat (Uloric -) 40 mg PO DAILY [facility] Last Admin: 07/22/17 11:31 Dose: 40 mg Fentanyl (Sublimaze Injection -) 25 mcg IVPUSH [id number] PRN PRN Reason: PAIN-PACU ORDER X 4 DOSES ONLY Furosemide (Lasix Injection -) 80 mg IVPUSH DAILY [facility] Glipizide (Glucotrol Xl -) 10 mg PO BID [facility] Last Admin: 07/22/17 21:48 Dose: 10 mg Heparin Sodium (Porcine) (Heparin -) 5,000 unit IVPUSH PRN PRN PRN Reason: HEPARIN PROTOCOL Last Admin: 07/19/17 08:49 Dose: 5,000 unit Heparin Sodium (Porcine) (Heparin -) 1,000 unit IVPUSH PRN PRN PRN Reason: HEPARIN PROTOCOL Last Admin: 07/22/17 02:10 Dose: 1,000 unit Heparin Sodium (Porcine) 25, (000 unit/ Sodium Chloride) 500 mls @ 22 mls/hr IV TITR NEIL; 1,100 UNIT/HR PRN Reason: Protocol Last Admin: 07/23/17 00:00 Dose: 2,000 unit/hr, 40 mls/hr Vancomycin HCl 1,000 mg/ (Dextrose) 250 mls @ 200 mls/hr IVPB Q24H [facility] PRN Reason: Protocol Last Admin: 07/22/17 17:33 Dose: 200 mls/hr Ceftazidime 1 gm/ Dextrose 50 mls @ 100 mls/hr IVPB Q8H-IV [facility] Last Admin: 07/23/17 01:04 Dose: 100 mls/hr Insulin Aspart (Novolog Vial Sliding Scale -) 1 vial SQ ACHS [facility] PRN Reason: Protocol Last Admin: 07/23/17 06:17 Dose: Not Given Insulin Detemir (Levemir Vial) 80 units SQ DAILY@0700 [facility] Last Admin: 07/23/17 06:37 Dose: 80 units Levothyroxine Sodium (Synthroid -) 100 mcg PO DAILY@0700 [facility] Last Admin: 07/23/17 06:17 Dose: 100 mcg Liraglutide (Victoza -) 1.8 mg SQ DAILY@0700 [facility] Last Admin: 07/23/17 06:38 Dose: 1.8 mg Oxycodone HCl (Roxicodone -) 10 mg PO HS [facility] Last Admin: 07/22/17 21:41 Dose: 10 mg - Objective Vital Signs: Vital Signs Temperature 97.9 F 07/23/17 06:00 Pulse Rate 89 07/23/17 06:00 Respiratory Rate 20 07/23/17 06:00 Blood Pressure 123/79 07/23/17 06:00 O2 Sat by Pulse Oximetry (%) 98 07/22/17 21:00 Constitutional: Yes: Calm Cardiovascular: Yes: Regular Rate and Rhythm Respiratory: Yes: Other (no wheezing) Gastrointestinal: Yes: Soft, Abdomen, Obese Edema: Yes Neurological: Yes: Alert, Oriented Labs: CBC, BMP 07/23/17 08:55 INR, PTT INR 1.32 (0.82-1.09) H 07/20/17 06:30 Laboratory Tests 07/22/17 07/22/17 07/22/17 07:00 07:00 07:00 WBC 13.5 H Hgb 9.7 L Plt Count 212 PTT (Actin FS) 71.3 H D Sodium 137 Potassium 4.3 Chloride Carbon Dioxide Anion Gap 8 BUN 105 H* Creatinine 2.7 H 07/23/17 07/23/17 07/23/17 08:55 08:55 08:55 WBC 12.5 H Hgb 8.7 L D Plt Count 198 PTT (Actin FS) Pending Sodium Pending Potassium Pending Chloride Pending Carbon Dioxide Pending Anion Gap Pending BUN Pending Creatinine Pending Assessment/Plan IMP: Mechanical fall resulting in spontaneous open fracture left ankle requiring emergent operative intervention, ext. fixation ARF, acute on chronic, now improved. RLE cellulitis Acute Gout Morbid obesity PHTN Chronic AF CAD s/p PCI Acute on chronic diastolic CHF REC: 1. Post op management as outlined by ortho 2. Resumed heparin gtts. PTT goal 50-70. Plan to resume Xarelto when GFR allows/ improves 3. Renal fxn continues to improve on IV Lasix, follow renal function closely.
[2017-07-23] MEDS: FUROSEMIDE 40 MG/4 ML INJECTABLE VIAL IVPUSH SCH (09:21)
[2017-07-23 09:33] LABS: ANION GAP 4 (8-16); BLOOD UREA NITROGEN 96 mg/dL (7-18); CHLORIDE 110 mmol/L (98-107); CO2 29 mmol/L (21-32); CREATININE 2.4 mg/dL (0.7-1.3); GLUCOSE,RANDOM 147 mg/dL (74-106); POTASSIUM 4.4 mmol/L (3.5-5.1); SODIUM 143 mmol/L (136-145)
[2017-07-23] MEDS: HEPARIN - 25,000 UNIT in SODIUM CHLORIDE 495 ML IV SCH ×3 (09:50→16:50)
[2017-07-23] MEDS: HEPARIN NA (PORCINE) 5,000 UNITS/ML 1ML VIAL IVPUSH PRN (09:50)
--- NOTE | 2017-07-23 10:16 | PN ---
Progress Note (short form) - Note Progress Note: POD #1 - s/p closed reduction/external fixation of left ankle fracture under peripheral nerve blocks. VSS. Pt. doing well, resting in bed. Blocks wearing off so starting to complain of some pain. Pain meds as per ortho. No apparent anesthetic complications noted. Continue current care.
[2017-07-23] MEDS: COLLAGENASE CLOSTRIDIUM HIST. 30 GRAMS TUBE TP SCH (10:56)
[2017-07-23] MEDS: BACITRACIN 15 GM TUBE TOPICAL OINTMENT TP SCH (10:58)
[2017-07-23] MEDS: glipiZIDE-XL 10 MG TAB.ER.24 (FP) PO SCH ×2 (11:23→21:53)
[2017-07-23] MEDS: FEBUXOSTAT 40 MG TAB PO SCH (11:23)
[2017-07-23] MEDS: COLCHICINE 0.6 MG TABLET (FP) PO SCH (11:23)
[2017-07-23] MEDS: ASPIRIN 81 MG CHEWABLE TABLETS PO SCH (11:23)
[2017-07-23] MEDS: ATENOLOL 50 MG TABLET (FP) PO SCH ×2 (11:24→21:51)
--- NOTE | 2017-07-23 12:32 | PN ---
Progress Note (short form) - Note Progress Note: PULMONARY Using his home BiPAP. Events noted Operative Date: 07/22/17 Pre-Operative Diagnosis: open fracture dislocation of left ankle Operation: I&D left ankle with X-Fix Post-Operative Diagnosis: Same as Pre-op Surgeon: Dandre Thayer Anesthesia: Local Estimated Blood Loss (mls): 100 Operative Report Dictated: Yes VSS/afebrile Gen: NAD at rest Heart: RRR Lung: distant breath sounds Abd: soft, nontender Ext: chronic changes, dressings, external fixation left lower ext labs/notes/images reviewed A/P Fall with fracture left ankle Cellulitis Morbid Obesity ASHLEY Atrial Fibrillation CAD h/o DVT/PE CKD - continue antibiotics/DVT prophylaxsis - BiPAP at night 09/10 - inhaled bronchodilators - O2 to keep SpO2 >90% - continue anticoagulation - cautious consideration in liberalizing pain meds in view of [facility] Jean Marie JACOBSEN MD
[2017-07-23] MEDS: oxyCODONE HCL 5 MG TABLET PO PRN ×3 (13:05→19:04)
[2017-07-23] MEDS: ACETAMINOPHEN 325 MG TABLET (FP) PO PRN ×2 (13:06→22:51)
--- NOTE | 2017-07-23 14:18 | PN ---
Progress Note (short form) - Note Progress Note: AVSS COMFORTABLE X-FIX INATCT MINIMAL DRAINAGE AT OPEN WOUND SITE POOR GLOBAL SENSATION IN FOOT( NOT SURE IF THIS IS ACUTE OR CHRONIC) WARM WITH GOOD CAP REFILL GOOD MOTION TOES CALF SOFT AND NT IMP: ORTHOPEDICALLY STABLE PLAN: IV ABX X 48 HOURS, ELEVATE LLE, NWB, DC PLANNIG. I WILL TREAT THE PATIENT DEFINITIVELY IN THE X-FIX --> NO ORIF
[2017-07-23] MEDS: VANCOMYCIN 1,000 MG in DEXTROSE 5%-WATER - 250 ML IVPB SCH (15:00)
--- NOTE | 2017-07-23 15:02 | PN ---
Progress Note, Physician History of Present Illness: patient stable wound looks good no complaints in the room - Current Medication List Current Medications: Active Medications Acetaminophen (Tylenol -) 650 mg PO Q8H PRN PRN Reason: FEVER Last Admin: 07/20/17 16:18 Dose: 650 mg Acetaminophen (Tylenol -) 650 mg PO Q6H PRN PRN Reason: PAIN LEVEL 6-10 Last Admin: 07/23/17 13:06 Dose: 650 mg Albuterol/Ipratropium (Duoneb -) 1 amp NEB Q4H PRN PRN Reason: SHORTNESS OF BREATH Aspirin (Asa -) 81 mg PO DAILY [facility] Last Admin: 07/23/17 11:23 Dose: 81 mg Atenolol (Tenormin -) 100 mg PO BID [facility] Last Admin: 07/23/17 11:24 Dose: 100 mg Atorvastatin Calcium (Lipitor -) 80 mg PO HS [facility] Last Admin: 07/22/17 21:41 Dose: 80 mg Bacitracin (Bacitracin -) 1 applic TP DAILY [facility] Last Admin: 07/23/17 10:58 Dose: Not Given Colchicine (Colcrys -) 0.6 mg PO DAILY [facility] Last Admin: 07/23/17 11:23 Dose: 0.6 mg Collagenase (Santyl -) 1 applic TP DAILY [facility] Last Admin: 07/23/17 10:56 Dose: 1 applic Febuxostat (Uloric -) 40 mg PO DAILY [facility] Last Admin: 07/23/17 11:23 Dose: 40 mg Fentanyl (Sublimaze Injection -) 25 mcg IVPUSH [id number] PRN PRN Reason: PAIN-PACU ORDER X 4 DOSES ONLY Furosemide (Lasix Injection -) 80 mg IVPUSH DAILY [facility] Last Admin: 07/23/17 09:21 Dose: 80 mg Glipizide (Glucotrol Xl -) 10 mg PO BID [facility] Last Admin: 07/23/17 11:23 Dose: 10 mg Heparin Sodium (Porcine) (Heparin -) 5,000 unit IVPUSH PRN PRN PRN Reason: HEPARIN PROTOCOL Last Admin: 07/19/17 08:49 Dose: 5,000 unit Heparin Sodium (Porcine) (Heparin -) 1,000 unit IVPUSH PRN PRN PRN Reason: HEPARIN PROTOCOL Last Admin: 07/23/17 09:50 Dose: 1,000 unit Heparin Sodium (Porcine) 25, (000 unit/ Sodium Chloride) 500 mls @ 22 mls/hr IV TITR NEIL; 1,100 UNIT/HR PRN Reason: Protocol Last Admin: 07/23/17 09:50 Dose: 2,100 unit/hr, 42 mls/hr Vancomycin HCl 1,000 mg/ (Dextrose) 250 mls @ 200 mls/hr IVPB Q24H NEIL PRN Reason: Protocol Last Admin: 07/22/17 17:33 Dose: 200 mls/hr Ceftazidime 1 gm/ Dextrose 50 mls @ 100 mls/hr IVPB Q8H-IV [facility] Last Admin: 07/23/17 11:23 Dose: 100 mls/hr Insulin Aspart (Novolog Vial Sliding Scale -) 1 vial SQ ACHS [facility] PRN Reason: Protocol Last Admin: 07/23/17 10:57 Dose: Not Given Insulin Detemir (Levemir Vial) 80 units SQ DAILY@0700 [facility] Last Admin: 07/23/17 06:37 Dose: 80 units Levothyroxine Sodium (Synthroid -) 100 mcg PO DAILY@0700 [facility] Last Admin: 07/23/17 06:17 Dose: 100 mcg Liraglutide (Victoza -) 1.8 mg SQ DAILY@0700 [facility] Last Admin: 07/23/17 06:38 Dose: 1.8 mg Oxycodone HCl (Roxicodone -) 10 mg PO [facility] Last Admin: 07/22/17 21:41 Dose: 10 mg Oxycodone HCl (Roxicodone -) 10 mg PO Q6H PRN PRN Reason: PAIN LEVEL 6-10 Last Admin: 07/23/17 13:05 Dose: 10 mg Oxycodone HCl (Roxicodone -) 10 mg PO Q4H PRN PRN Reason: MODERATE PAIN Last Admin: 07/23/17 14:52 Dose: 10 mg - Objective Vital Signs: Vital Signs Temperature 97.3 F L 07/23/17 14:00 Pulse Rate 94 H 07/23/17 14:00 Respiratory Rate 18 07/23/17 14:00 Blood Pressure 105/62 07/23/17 14:00 O2 Sat by Pulse Oximetry (%) 94 L 07/23/17 09:00 Constitutional: Yes: No Distress, Calm, Obese Cardiovascular: Yes: Regular Rate and Rhythm Respiratory: Yes: On Nasal O2, Poor Air Entry, Other (bipap) Gastrointestinal: Yes: Normal Bowel Sounds, Soft Musculoskeletal: Yes: Other Extremities: Yes: Other Edema: LLE: 1+, RLE: 1+ Integumentary: Yes: Other Wound/Incision: Yes: Clean/Dry Neurological: Yes: Alert, Oriented Psychiatric: Yes: Alert, Oriented Labs: CBC, BMP 07/23/17 08:55 07/23/17 08:55 INR, PTT INR 1.32 (0.82-1.09) H 07/20/17 06:30 Assessment/Plan Problem List - Problems (1) Accident due to mechanical fall without injury Code(s): W19.XXXA - UNSPECIFIED FALL, INITIAL ENCOUNTER (2) Atrial fibrillation Code(s): I48.91 - UNSPECIFIED ATRIAL FIBRILLATION Qualifiers: Atrial fibrillation type: chronic Qualified Code(s): I48.2 - Chronic atrial fibrillation (3) CAD (coronary artery disease) Code(s): I25.10 - ATHSCL HEART DISEASE OF [place] CORONARY ARTERY W/O ANG PCTRS (4) CHF (congestive heart failure) Code(s): I50.9 - HEART FAILURE, UNSPECIFIED (5) DVT (deep venous thrombosis) Code(s): I82.409 - ACUTE EMBOLISM AND THOMBOS UNSP DEEP VN UNSP LOWER EXTREMITY Qualifiers: DVT location: lower extremity Affected thrombotic vein of extremity: femoral Chronicity: chronic Laterality: right Qualified Code(s): I82.511 - Chronic embolism and thrombosis of right femoral vein (6) Obesities, morbid Code(s): E66.01 - MORBID (SEVERE) OBESITY DUE TO EXCESS CALORIES (7) Pulmonary embolism Code(s): I26.99 - OTHER PULMONARY EMBOLISM WITHOUT ACUTE COR PULMONALE (8) Venous (peripheral) insufficiency Code(s): I87.2 - VENOUS INSUFFICIENCY (CHRONIC) (PERIPHERAL) (9) Sleep apnea Code(s): G47.30 - SLEEP APNEA, UNSPECIFIED (10) COPD (chronic obstructive pulmonary disease) Code(s): J44.9 - CHRONIC OBSTRUCTIVE PULMONARY DISEASE, UNSPECIFIED (11) Pulmonary HTN Code(s): I27.20 - PULMONARY HYPERTENSION, UNSPECIFIED (12) Dyspnea Code(s): R06.00 - DYSPNEA, UNSPECIFIED (13) Cellulitis Code(s): L03.90 - CELLULITIS, UNSPECIFIED 14) wound infection 15 leukocytosis 16 compound fracture left leg plan continue abx will check vaco trough today rest continue supportive measures rest as per ortho
--- NOTE | 2017-07-23 16:46 | PN ---
Progress Note, Physician History of Present Illness: Pt seen and examined at bedside. He is awake and alert. He denies shortness of breath. - Current Medication List Current Medications: Active Medications Acetaminophen (Tylenol -) 650 mg PO Q8H PRN PRN Reason: FEVER Last Admin: 07/20/17 16:18 Dose: 650 mg Acetaminophen (Tylenol -) 650 mg PO Q6H PRN PRN Reason: PAIN LEVEL 6-10 Last Admin: 07/23/17 13:06 Dose: 650 mg Albuterol/Ipratropium (Duoneb -) 1 amp NEB Q4H PRN PRN Reason: SHORTNESS OF BREATH Aspirin (Asa -) 81 mg PO DAILY [facility] Last Admin: 07/23/17 11:23 Dose: 81 mg Atenolol (Tenormin -) 100 mg PO BID [facility] Last Admin: 07/23/17 11:24 Dose: 100 mg Atorvastatin Calcium (Lipitor -) 80 mg PO HS [facility] Last Admin: 07/22/17 21:41 Dose: 80 mg Bacitracin (Bacitracin -) 1 applic TP DAILY [facility] Last Admin: 07/23/17 10:58 Dose: Not Given Colchicine (Colcrys -) 0.6 mg PO DAILY [facility] Last Admin: 07/23/17 11:23 Dose: 0.6 mg Collagenase (Santyl -) 1 applic TP DAILY [facility] Last Admin: 07/23/17 10:56 Dose: 1 applic Febuxostat (Uloric -) 40 mg PO DAILY [facility] Last Admin: 07/23/17 11:23 Dose: 40 mg Fentanyl (Sublimaze Injection -) 25 mcg IVPUSH [id number] PRN PRN Reason: PAIN-PACU ORDER X 4 DOSES ONLY Furosemide (Lasix Injection -) 80 mg IVPUSH DAILY [facility] Last Admin: 07/23/17 09:21 Dose: 80 mg Glipizide (Glucotrol Xl -) 10 mg PO BID [facility] Last Admin: 07/23/17 11:23 Dose: 10 mg Heparin Sodium (Porcine) (Heparin -) 5,000 unit IVPUSH PRN PRN PRN Reason: HEPARIN PROTOCOL Last Admin: 07/19/17 08:49 Dose: 5,000 unit Heparin Sodium (Porcine) (Heparin -) 1,000 unit IVPUSH PRN PRN PRN Reason: HEPARIN PROTOCOL Last Admin: 07/23/17 09:50 Dose: 1,000 unit Heparin Sodium (Porcine) 25, (000 unit/ Sodium Chloride) 500 mls @ 22 mls/hr IV TITR NEIL; 1,100 UNIT/HR PRN Reason: Protocol Last Admin: 07/23/17 09:50 Dose: 2,100 unit/hr, 42 mls/hr Vancomycin HCl 1,000 mg/ (Dextrose) 250 mls @ 200 mls/hr IVPB Q24H NEIL PRN Reason: Protocol Last Admin: 07/23/17 15:00 Dose: 200 mls/hr Ceftazidime 1 gm/ Dextrose 50 mls @ 100 mls/hr IVPB Q8H-IV NEIL Last Admin: 07/23/17 11:23 Dose: 100 mls/hr Insulin Aspart (Novolog Vial Sliding Scale -) 1 vial SQ ACHS [facility] PRN Reason: Protocol Last Admin: 07/23/17 10:57 Dose: Not Given Insulin Detemir (Levemir Vial) 80 units SQ DAILY@0700 [facility] Last Admin: 07/23/17 06:37 Dose: 80 units Levothyroxine Sodium (Synthroid -) 100 mcg PO DAILY@0700 [facility] Last Admin: 07/23/17 06:17 Dose: 100 mcg Liraglutide (Victoza -) 1.8 mg SQ DAILY@0700 [facility] Last Admin: 07/23/17 06:38 Dose: 1.8 mg Oxycodone HCl (Roxicodone -) 10 mg PO HS [facility] Last Admin: 07/22/17 21:41 Dose: 10 mg Oxycodone HCl (Roxicodone -) 10 mg PO Q6H PRN PRN Reason: PAIN LEVEL 6-10 Last Admin: 07/23/17 13:05 Dose: 10 mg Oxycodone HCl (Roxicodone -) 10 mg PO Q4H PRN PRN Reason: MODERATE PAIN Last Admin: 07/23/17 14:52 Dose: 10 mg - Objective Vital Signs: Vital Signs Temperature 97.3 F L 07/23/17 14:00 Pulse Rate 94 H 07/23/17 14:00 Respiratory Rate 18 07/23/17 14:00 Blood Pressure 105/62 07/23/17 14:00 O2 Sat by Pulse Oximetry (%) 94 L 07/23/17 09:00 Constitutional: Yes: Calm Eyes: Yes: Conjunctiva Clear HENT: Yes: Atraumatic Neck: Yes: Supple Cardiovascular: Yes: S1, S2 Respiratory: Yes: CTA Bilaterally Gastrointestinal: Yes: Soft, Abdomen, Obese Genitourinary: Yes: WNL Musculoskeletal: Yes: Other (s/p left leg fracture repair) Edema: Yes Edema: LLE: 2+, RLE: 2+ Neurological: Yes: Oriented Psychiatric: Yes: Oriented Labs: CBC, BMP 07/23/17 08:55 07/23/17 08:55 INR, PTT INR 1.32 (0.82-1.09) H 07/20/17 06:30 Problem List - Problems (1) CKD (chronic kidney disease) Code(s): N18.9 - CHRONIC KIDNEY DISEASE, UNSPECIFIED (2) Accident due to mechanical fall without injury Code(s): W19.XXXA - UNSPECIFIED FALL, INITIAL ENCOUNTER (3) Acute renal failure (ARF) Code(s): N17.9 - ACUTE KIDNEY FAILURE, UNSPECIFIED Assessment/Plan Current Medications Generic Name Dose Route Start Last Admin Trade Name Freq PRN Reason Stop Dose Admin Acetaminophen 650 mg 07/12/17 08:03 07/20/17 16:18 Tylenol - PO 650 mg Q8H PRN Administration FEVER Acetaminophen 650 mg 07/23/17 11:46 07/23/17 13:06 Tylenol - PO 650 mg Q6H PRN Administration PAIN LEVEL 6-10 Albuterol/Ipratropium 1 amp 07/21/17 13:45 Duoneb - NEB Q4H PRN SHORTNESS OF BREATH Aspirin 81 mg 07/20/17 10:00 07/23/17 11:23 Asa - PO 81 mg DAILY NEIL Administration Atenolol 100 mg 07/12/17 10:00 07/23/17 11:24 Tenormin - PO 100 mg BID NEIL Administration Atorvastatin Calcium 80 mg 07/12/17 22:00 07/22/17 21:41 Lipitor - PO 80 mg HS NEIL Administration Bacitracin 1 applic 07/14/17 17:15 07/23/17 10:58 Bacitracin - TP Not Given DAILY NEIL Colchicine 0.6 mg 07/19/17 10:00 07/23/17 11:23 Colcrys - PO 0.6 mg DAILY NEIL Administration Collagenase 1 applic 07/12/17 10:00 07/23/17 10:56 Santyl - TP 1 applic DAILY [facility] Administration Febuxostat 40 mg 07/21/17 10:00 07/23/17 11:23 Uloric - PO 40 mg DAILY [facility] Administration Fentanyl 25 mcg 07/22/17 15:56 Sublimaze Injection - IVPUSH [id number] PRN PAIN-PACU ORDER X 4 DOSES ONLY Furosemide 80 mg 07/23/17 10:00 07/23/17 09:21 Lasix Injection - IVPUSH 80 mg DAILY [facility]IL Administration Glipizide 10 mg 07/12/17 10:00 07/23/17 11:23 Glucotrol Xl - PO 10 mg BID NEIL Administration Heparin Sodium (Porcine) 5,000 unit 07/17/17 12:00 07/19/17 08:49 Heparin - IVPUSH 5,000 unit PRN PRN Administration HEPARIN PROTOCOL Heparin Sodium (Porcine) 1,000 unit 07/17/17 12:00 07/23/17 09:50 Heparin - IVPUSH 1,000 unit PRN PRN Administration HEPARIN PROTOCOL Heparin Sodium (Porcine) 25, 500 mls @ 22 mls/hr 07/18/17 09:00 07/23/17 09: 50 000 unit/ Sodium Chloride IV 2,100 unit/hr TITR NEIL 42 mls/hr Protocol Administration 1,100 UNIT/HR Vancomycin HCl 1,000 mg/ 250 mls @ 200 mls/hr 07/17/17 15:00 07/23/17 15:00 Dextrose IVPB 200 mls/hr Q24H NEIL Administration Protocol Ceftazidime 1 gm/ Dextrose 50 mls @ 100 mls/hr 07/19/17 13:45 07/23/17 11:23 IVPB 100 mls/hr Q8H-IV NEIL Administration Insulin Aspart 1 vial 07/14/17 11:15 07/23/17 10:57 Novolog Vial Sliding Scale - SQ Not Given ACHS [facility] Protocol Insulin Detemir 80 units 07/22/17 07:00 07/23/17 06:37 Levemir Vial SQ 80 units DAILY@0700 [facility] Administration Levothyroxine Sodium 100 mcg 07/12/17 07:00 07/23/17 06:17 Synthroid - PO 100 mcg DAILY@0700 [facility] Administration Liraglutide 1.8 mg 07/13/17 07:00 07/23/17 06:38 Victoza - SQ 1.8 mg DAILY@0700 [facility] Administration Oxycodone HCl 10 mg 07/12/17 22:00 07/22/17 21:41 Roxicodone - PO 10 mg HS NEIL Administration Oxycodone HCl 10 mg 07/23/17 11:46 07/23/17 13:05 Roxicodone - PO 10 mg Q6H PRN Administration PAIN LEVEL 6-10 Oxycodone HCl 10 mg 07/23/17 14:20 07/23/17 14:52 Roxicodone - PO 10 mg Q4H PRN Administration MODERATE PAIN Impression 1. CKD 2. KRUNAL 3. volume overload 4. obesity 5. CAD 6. cellulitis 7. s/p fall 8. a-fib 9. DM 10. hypothyroidism 11. HLD 12. CHF 13. s/p leg fracture Plan - renal function is improving - cont with lasix - ortho input appreciated - discussed plan with family - volume status slowly improving - repeat labs in am - keep jasmyne on hold for now - will follow Dr Quiroz
[2017-07-23] MEDS: ALBUTEROL SO4 2.5/IPRATROPIUM 0.5 INH SOL 3 ML VIAL.NEB. NEB PRN (20:19)
[2017-07-23] MEDS: ATORVASTATIN CA 80 MG TABLET (FP) PO SCH (21:51)
[2017-07-23] MEDS: oxyCODONE HCL 5 MG TABLET PO SCH (22:50)
[2017-07-24] MEDS: CEFTAZIDIME PENTAHYDRATE 1 GM in DEXTROSE 5%-WATER - 50 ML IVPB SCH ×3 (02:44→17:02)
[2017-07-24] MEDS: HEPARIN - 25,000 UNIT in SODIUM CHLORIDE 495 ML IV SCH ×2 (02:45→17:03)
[2017-07-24] MEDS: oxyCODONE HCL 5 MG TABLET PO PRN ×5 (03:22→20:37)
[2017-07-24] MEDS: INSULIN (LEVEMIR) 100 UNITS/ML UNITS SQ SCH (06:44)
[2017-07-24] MEDS: LEVOTHYROXINE NA 100 MCG TABLET (FP) PO SCH (06:44)
[2017-07-24] MEDS: INSULIN SLIDING SCALE (NOVOLOG) 1 VIAL SQ SCH ×4 (06:44→22:35)
[2017-07-24] MEDS: LIRAGLUTIDE 0.6 MG/0.1 ML PEN.INJCTR SQ SCH (06:47)
[2017-07-24] MEDS ORDERED: PT OWN MED DRAWER 7, Y5N ONE ×4 (06:53→16:55)
[2017-07-24] MEDS ORDERED: INSULIN (NOVOLOG) ASPART 100 UNITS/ML 10ML VIAL ONE (06:53)
[2017-07-24 09:35] LABS: BASO % 0.1 % (0-2.0); EOS % 1.6 % (0-4.5); HEMATOCRIT 27.3 % (35.4-49); HEMOGLOBIN 8.9 GM/dL (11.7-16.9); LYMPH % 8.5 % (8-40); MCH 31.7 pg (25.7-33.7); MCHC 32.6 g/dl (32.0-35.9); MEAN CELL VOLUME 97.2 fl (80-96); MEAN PLT VOLUME 8.4 fl (7.5-11.1); MONO % 7.3 % (3.8-10.2); NEUT % 82.5 % (42.8-82.8); PLATELET COUNT 184 K/MM3 (134-434); RBC 2.81 M/mm3 (4.00-5.60); RDW 17.8 % (11.9-15.9); WHITE BLOOD COUNT 11.9 K/mm3 (4.0-10.0)
[2017-07-24] MEDS: COLCHICINE 0.6 MG TABLET (FP) PO SCH (10:15)
[2017-07-24] MEDS: FEBUXOSTAT 40 MG TAB PO SCH (10:15)
[2017-07-24] MEDS: ATENOLOL 50 MG TABLET (FP) PO SCH ×2 (10:15→22:39)
[2017-07-24] MEDS: FUROSEMIDE 40 MG/4 ML INJECTABLE VIAL IVPUSH SCH (10:16)
[2017-07-24] MEDS: ASPIRIN 81 MG CHEWABLE TABLETS PO SCH (10:16)
[2017-07-24] MEDS: glipiZIDE-XL 10 MG TAB.ER.24 (FP) PO SCH ×2 (10:17→22:34)
[2017-07-24] MEDS: BACITRACIN 15 GM TUBE TOPICAL OINTMENT TP SCH (10:17)
[2017-07-24] MEDS: COLLAGENASE CLOSTRIDIUM HIST. 30 GRAMS TUBE TP SCH (10:17)
[2017-07-24 10:18] LABS: ANION GAP 5 (8-16); BLOOD UREA NITROGEN 87 mg/dL (7-18); CALCIUM 8.2 mg/dL (8.5-10.1); CHLORIDE 111 mmol/L (98-107); CO2 28 mmol/L (21-32); CREATININE 2.1 mg/dL (0.7-1.3); GLUCOSE,RANDOM 190 mg/dL (74-106); POTASSIUM 4.2 mmol/L (3.5-5.1); SODIUM 144 mmol/L (136-145)
--- NOTE | 2017-07-24 11:26 | PN ---
Progress Note (short form) - Note Progress Note: RENAL Pt is awake and alert family is present denies n/v Last Vital Signs Temp Pulse Resp BP Pulse Ox 97.6 F 82 20 116/65 97 07/24/17 07:02 07/24/17 07:02 07/24/17 07:02 07/24/17 07:02 07/23/17 21:00 lungs clear anteriorly cvs s1s2 rr abd soft, morbidly obese ext +edema, has pins in left foot neuro a+ox3 CBC, BMP 07/24/17 08:59 07/24/17 08:59 Current Medications Generic Name Dose Route Start Last Admin Trade Name Freq PRN Reason Stop Dose Admin Acetaminophen 650 mg 07/12/17 08:03 07/20/17 16:18 Tylenol - PO 650 mg Q8H PRN Administration FEVER Acetaminophen 650 mg 07/23/17 11:46 07/23/17 22:51 Tylenol - PO 650 mg Q6H PRN Administration PAIN LEVEL 6-10 Albuterol/Ipratropium 1 amp 07/21/17 13:45 07/23/17 20:19 Duoneb - NEB 1 amp Q4H PRN Administration SHORTNESS OF BREATH Aspirin 81 mg 07/20/17 10:00 07/24/17 10:16 Asa - PO 81 mg DAILY [facility] Administration Atenolol 100 mg 07/12/17 10:00 07/24/17 10:15 Tenormin - PO 100 mg BID NEIL Administration Atorvastatin Calcium 80 mg 07/12/17 22:00 07/23/17 21:51 Lipitor - PO 80 mg HS NEIL Administration Bacitracin 1 applic 07/14/17 17:15 07/24/17 10:17 Bacitracin - TP Not Given DAILY NEIL Colchicine 0.6 mg 07/19/17 10:00 07/24/17 10:15 Colcrys - PO 0.6 mg DAILY [facility]IL Administration Collagenase 1 applic 07/12/17 10:00 07/24/17 10:17 Santyl - TP 1 applic DAILY [facility] Administration Febuxostat 40 mg 07/21/17 10:00 07/24/17 10:15 Uloric - PO 40 mg DAILY [facility] Administration Furosemide 80 mg 07/23/17 10:00 07/24/17 10:16 Lasix Injection - IVPUSH 80 mg DAILY [facility] Administration Glipizide 10 mg 07/12/17 10:00 07/24/17 10:17 Glucotrol Xl - PO 10 mg BID NEIL Administration Heparin Sodium (Porcine) 5,000 unit 07/17/17 12:00 07/19/17 08:49 Heparin - IVPUSH 5,000 unit PRN PRN Administration HEPARIN PROTOCOL Heparin Sodium (Porcine) 1,000 unit 07/17/17 12:00 07/23/17 09:50 Heparin - IVPUSH 1,000 unit PRN PRN Administration HEPARIN PROTOCOL Heparin Sodium (Porcine) 25, 500 mls @ 22 mls/hr 07/18/17 09:00 07/24/17 02: 45 000 unit/ Sodium Chloride IV 2,100 unit/hr TITR NEIL 42 mls/hr Protocol Administration 1,100 UNIT/HR Vancomycin HCl 1,000 mg/ 250 mls @ 200 mls/hr 07/17/17 15:00 07/23/17 15:00 Dextrose IVPB 200 mls/hr Q24H NEIL Administration Protocol Ceftazidime 1 gm/ Dextrose 50 mls @ 100 mls/hr 07/19/17 13:45 07/24/17 10:15 IVPB 100 mls/hr Q8H-IV NEIL Administration Insulin Aspart 1 vial 07/14/17 11:15 07/24/17 06:44 Novolog Vial Sliding Scale - SQ 2 units ACHS NEIL Administration Protocol Insulin Detemir 80 units 07/22/17 07:00 07/24/17 06:44 Levemir Vial SQ 80 units DAILY@0700 [facility] Administration Levothyroxine Sodium 100 mcg 07/12/17 07:00 07/24/17 06:44 Synthroid - PO 100 mcg DAILY@0700 [facility] Administration Liraglutide 1.8 mg 07/13/17 07:00 07/24/17 06:47 Victoza - SQ 1.8 mg DAILY@0700 [facility] Administration Oxycodone HCl 10 mg 07/12/17 22:00 07/23/17 22:50 Roxicodone - PO 10 mg HS NEIL Administration Oxycodone HCl 10 mg 07/23/17 11:46 07/23/17 13:05 Roxicodone - PO 10 mg Q6H PRN Administration PAIN LEVEL 6-10 Oxycodone HCl 10 mg 07/23/17 14:07/24/17 08:23 Roxicodone - PO 10 mg Q4H PRN Administration MODERATE PAIN Impression 1. CKD- non proteinuric 2. KRUNAL- low urine sodium 3. volume overload 4. obesity 5. CAD 6. cellulitis 7. s/p fall 8. a-fib 9. DM 10. hypothyroidism 11. HLD 12. CHF 13. s/p leg fracture Plan - renal function relatively stable - cont with lasix - discussed plan with family - repeat labs in am - keep jasmyne on hold for now -hold lasix if creat rises again tomorrow MV
--- NOTE | 2017-07-24 12:38 | PN ---
Progress Note (short form) - Note Progress Note: PULMONARY Denies shortness of breath, cough or wheezing. Using his home BiPAP. Last Vital Signs Temp Pulse Resp BP Pulse Ox 97.8 F 82 18 123/73 97 07/24/17 08:00 07/24/17 08:00 07/24/17 08:00 07/24/17 08:00 07/24/17 09:00 Gen: NAD at rest Heart: RRR Lung: distant breath sounds Abd: soft, nontender Ext: chronic changes, dressings with drainage CBC, BMP 07/24/17 08:59 07/24/17 08:59 Active Medications Acetaminophen (Tylenol -) 650 mg PO Q8H PRN PRN Reason: FEVER Last Admin: 07/20/17 16:18 Dose: 650 mg Acetaminophen (Tylenol -) 650 mg PO Q6H PRN PRN Reason: PAIN LEVEL 6-10 Last Admin: 07/23/17 22:51 Dose: 650 mg Albuterol/Ipratropium (Duoneb -) 1 amp NEB Q4H PRN PRN Reason: SHORTNESS OF BREATH Last Admin: 07/23/17 20:19 Dose: 1 amp Aspirin (Asa -) 81 mg PO DAILY [facility] Last Admin: 07/24/17 10:16 Dose: 81 mg Atenolol (Tenormin -) 100 mg PO BID [facility] Last Admin: 07/24/17 10:15 Dose: 100 mg Atorvastatin Calcium (Lipitor -) 80 mg PO HS [facility] Last Admin: 07/23/17 21:51 Dose: 80 mg Bacitracin (Bacitracin -) 1 applic TP DAILY [facility] Last Admin: 07/24/17 10:17 Dose: Not Given Colchicine (Colcrys -) 0.6 mg PO DAILY [facility] Last Admin: 07/24/17 10:15 Dose: 0.6 mg Collagenase (Santyl -) 1 applic TP DAILY [facility] Last Admin: 07/24/17 10:17 Dose: 1 applic Febuxostat (Uloric -) 40 mg PO DAILY [facility] Last Admin: 07/24/17 10:15 Dose: 40 mg Furosemide (Lasix Injection -) 80 mg IVPUSH DAILY [facility] Last Admin: 07/24/17 10:16 Dose: 80 mg Glipizide (Glucotrol Xl -) 10 mg PO BID [facility] Last Admin: 07/24/17 10:17 Dose: 10 mg Heparin Sodium (Porcine) 25, (000 unit/ Sodium Chloride) 500 mls @ 22 mls/hr IV TITR NEIL; 1,100 UNIT/HR PRN Reason: Protocol Last Admin: 07/24/17 02:45 Dose: 2,100 unit/hr, 42 mls/hr Vancomycin HCl 1,000 mg/ (Dextrose) 250 mls @ 200 mls/hr IVPB Q24H [facility]IL PRN Reason: Protocol Last Admin: 07/23/17 15:00 Dose: 200 mls/hr Ceftazidime 1 gm/ Dextrose 50 mls @ 100 mls/hr IVPB Q8H-IV [facility] Last Admin: 07/24/17 10:15 Dose: 100 mls/hr Insulin Aspart (Novolog Vial Sliding Scale -) 1 vial SQ ACHS [facility] PRN Reason: Protocol Last Admin: 07/24/17 11:28 Dose: 2 units Insulin Detemir (Levemir Vial) 80 units SQ DAILY@0700 [facility] Last Admin: 07/24/17 06:44 Dose: 80 units Levothyroxine Sodium (Synthroid -) 100 mcg PO DAILY@0700 [facility] Last Admin: 07/24/17 06:44 Dose: 100 mcg Liraglutide (Victoza -) 1.8 mg SQ DAILY@0700 [facility] Last Admin: 07/24/17 06:47 Dose: 1.8 mg Oxycodone HCl (Roxicodone -) 10 mg PO HS [facility] Last Admin: 07/23/17 22:50 Dose: 10 mg Oxycodone HCl (Roxicodone -) 10 mg PO Q6H PRN PRN Reason: PAIN LEVEL 6-10 Last Admin: 07/23/17 13:05 Dose: 10 mg Oxycodone HCl (Roxicodone -) 10 mg PO Q4H PRN PRN Reason: MODERATE PAIN Last Admin: 07/24/17 08:23 Dose: 10 mg A/P Cellulitis Left Ankle Fracture Morbid Obesity ASHLEY Atrial Fibrillation CAD h/o DVT/PE CKD - continue antibiotics - BiPAP at night 09/10 - inhaled bronchodilators - O2 to keep SpO2 >90% - continue anticoagulation - would contact Jolly murillo on Wednesday as he is due for a new BiPAP and has been experiencing difficulty
[2017-07-24] MEDS: ALBUTEROL SO4 2.5/IPRATROPIUM 0.5 INH SOL 3 ML VIAL.NEB. NEB PRN ×2 (14:27→20:05)
--- NOTE | 2017-07-24 15:50 | PN ---
Progress Note, Physician History of Present Illness: Pt is afebrile. No new complaints. Has bipap on. - Current Medication List Current Medications: Active Medications Acetaminophen (Tylenol -) 650 mg PO Q8H PRN PRN Reason: FEVER Last Admin: 07/20/17 16:18 Dose: 650 mg Acetaminophen (Tylenol -) 650 mg PO Q6H PRN PRN Reason: PAIN LEVEL 6-10 Last Admin: 07/23/17 22:51 Dose: 650 mg Albuterol/Ipratropium (Duoneb -) 1 amp NEB Q4H PRN PRN Reason: SHORTNESS OF BREATH Last Admin: 07/24/17 14:27 Dose: 1 amp Aspirin (Asa -) 81 mg PO DAILY [facility] Last Admin: 07/24/17 10:16 Dose: 81 mg Atenolol (Tenormin -) 100 mg PO BID [facility] Last Admin: 07/24/17 10:15 Dose: 100 mg Atorvastatin Calcium (Lipitor -) 80 mg PO HS [facility] Last Admin: 07/23/17 21:51 Dose: 80 mg Bacitracin (Bacitracin -) 1 applic TP DAILY [facility] Last Admin: 07/24/17 10:17 Dose: Not Given Colchicine (Colcrys -) 0.6 mg PO DAILY [facility] Last Admin: 07/24/17 10:15 Dose: 0.6 mg Collagenase (Santyl -) 1 applic TP DAILY [facility] Last Admin: 07/24/17 10:17 Dose: 1 applic Febuxostat (Uloric -) 40 mg PO DAILY [facility] Last Admin: 07/24/17 10:15 Dose: 40 mg Furosemide (Lasix Injection -) 80 mg IVPUSH DAILY [facility] Last Admin: 07/24/17 10:16 Dose: 80 mg Glipizide (Glucotrol Xl -) 10 mg PO BID [facility] Last Admin: 07/24/17 10:17 Dose: 10 mg Heparin Sodium (Porcine) 25, (000 unit/ Sodium Chloride) 500 mls @ 22 mls/hr IV TITR NEIL; 1,100 UNIT/HR PRN Reason: Protocol Last Admin: 07/24/17 02:45 Dose: 2,100 unit/hr, 42 mls/hr Vancomycin HCl 1,000 mg/ (Dextrose) 250 mls @ 200 mls/hr IVPB Q24H [facility] PRN Reason: Protocol Last Admin: 07/23/17 15:00 Dose: 200 mls/hr Ceftazidime 1 gm/ Dextrose 50 mls @ 100 mls/hr IVPB Q8H-IV [facility] Last Admin: 07/24/17 10:15 Dose: 100 mls/hr Insulin Aspart (Novolog Vial Sliding Scale -) 1 vial SQ ACHS [facility] PRN Reason: Protocol Last Admin: 07/24/17 11:28 Dose: 2 units Insulin Detemir (Levemir Vial) 80 units SQ DAILY@0700 [facility] Last Admin: 07/24/17 06:44 Dose: 80 units Levothyroxine Sodium (Synthroid -) 100 mcg PO DAILY@0700 [facility] Last Admin: 07/24/17 06:44 Dose: 100 mcg Liraglutide (Victoza -) 1.8 mg SQ DAILY@0700 [facility] Last Admin: 07/24/17 06:47 Dose: 1.8 mg Oxycodone HCl (Roxicodone -) 10 mg PO HS [facility] Last Admin: 07/23/17 22:50 Dose: 10 mg Oxycodone HCl (Roxicodone -) 10 mg PO Q6H PRN PRN Reason: PAIN LEVEL 6-10 Last Admin: 07/23/17 13:05 Dose: 10 mg Oxycodone HCl (Roxicodone -) 10 mg PO Q4H PRN PRN Reason: MODERATE PAIN Last Admin: 07/24/17 13:26 Dose: 10 mg - Objective Vital Signs: Vital Signs Temperature 97.8 F 07/24/17 08:00 Pulse Rate 82 07/24/17 08:00 Respiratory Rate 18 07/24/17 08:00 Blood Pressure 123/73 07/24/17 08:00 O2 Sat by Pulse Oximetry (%) 97 07/24/17 09:00 Constitutional: Yes: No Distress Cardiovascular: Yes: Regular Rate and Rhythm Respiratory: Yes: Regular Gastrointestinal: Yes: Normal Bowel Sounds, Soft Extremities: Yes: Other (Lt foot edema/erythema, dressing/immobilizer in place) Wound/Incision: Yes: Dressing Dry and Intact Neurological: Yes: Alert, Oriented Labs: CBC, BMP 07/24/17 08:59 07/24/17 08:59 INR, PTT INR 1.32 (0.82-1.09) H 07/20/17 06:30 Vancomycin level pending Problem List - Problems (1) Acute renal failure (ARF) Code(s): N17.9 - ACUTE KIDNEY FAILURE, UNSPECIFIED (2) CKD (chronic kidney disease) Code(s): N18.9 - CHRONIC KIDNEY DISEASE, UNSPECIFIED (3) COPD (chronic obstructive pulmonary disease) Code(s): J44.9 - CHRONIC OBSTRUCTIVE PULMONARY DISEASE, UNSPECIFIED (4) Cellulitis Code(s): L03.90 - CELLULITIS, UNSPECIFIED (5) Pulmonary HTN Code(s): I27.20 - PULMONARY HYPERTENSION, UNSPECIFIED (6) Sleep apnea Code(s): G47.30 - SLEEP APNEA, UNSPECIFIED (7) CAD (coronary artery disease) Code(s): I25.10 - ATHSCL HEART DISEASE OF [place] CORONARY ARTERY W/O ANG PCTRS (8) CHF (congestive heart failure) Code(s): I50.9 - HEART FAILURE, UNSPECIFIED (9) Venous (peripheral) insufficiency Code(s): I87.2 - VENOUS INSUFFICIENCY (CHRONIC) (PERIPHERAL) Assessment/Plan Pt with infected Lt leg wound +pseudomonas/MRSA Lt tibial fracture continue current antibiotics f/u vancomycin level, repeat wbc renal function improving continue wound care
[2017-07-24] MEDS: VANCOMYCIN 1,000 MG in DEXTROSE 5%-WATER - 250 ML IVPB SCH (17:51)
--- NOTE | 2017-07-24 19:56 | PN ---
Progress Note (short form) - Note Progress Note: Medical coverage for Dr. Hudson Subjective: The patient was seen and examined at the bedside, he has no complaints at this time. Current Medications Generic Name Dose Route Start Last Admin Trade Name Freq PRN Reason Stop Dose Admin Acetaminophen 650 mg 07/12/17 08:03 07/20/17 16:18 Tylenol - PO 650 mg Q8H PRN Administration FEVER Acetaminophen 650 mg 07/23/17 11:46 07/23/17 22:51 Tylenol - PO 650 mg Q6H PRN Administration PAIN LEVEL 6-10 Albuterol/Ipratropium 1 amp 07/21/17 13:45 07/24/17 14:27 Duoneb - NEB 1 amp Q4H PRN Administration SHORTNESS OF BREATH Aspirin 81 mg 07/20/17 10:00 07/24/17 10:16 Asa - PO 81 mg DAILY [facility] Administration Atenolol 100 mg 07/12/17 10:00 07/24/17 10:15 Tenormin - PO 100 mg BID NEIL Administration Atorvastatin Calcium 80 mg 07/12/17 22:00 07/23/17 21:51 Lipitor - PO 80 mg HS NEIL Administration Bacitracin 1 applic 07/14/17 17:15 07/24/17 10:17 Bacitracin - TP Not Given DAILY NEIL Colchicine 0.6 mg 07/19/17 10:00 07/24/17 10:15 Colcrys - PO 0.6 mg DAILY [facility] Administration Collagenase 1 applic 07/12/17 10:00 07/24/17 10:17 Santyl - TP 1 applic DAILY [facility] Administration Febuxostat 40 mg 07/21/17 10:00 07/24/17 10:15 Uloric - PO 40 mg DAILY [facility] Administration Furosemide 80 mg 07/23/17 10:00 07/24/17 10:16 Lasix Injection - IVPUSH 80 mg DAILY [facility] Administration Glipizide 10 mg 07/12/17 10:00 07/24/17 10:17 Glucotrol Xl - PO 10 mg BID NEIL Administration Heparin Sodium (Porcine) 25, 500 mls @ 22 mls/hr 07/18/17 09:00 07/24/17 17: 03 000 unit/ Sodium Chloride IV 2,100 unit/hr TITR NEIL 42 mls/hr Protocol Administration 1,100 UNIT/HR Vancomycin HCl 1,000 mg/ 250 mls @ 200 mls/hr 07/17/17 15:00 07/24/17 17:51 Dextrose IVPB 200 mls/hr Q24H [facility]IL Administration Protocol Ceftazidime 1 gm/ Dextrose 50 mls @ 100 mls/hr 07/19/17 13:45 07/24/17 17:02 IVPB 100 mls/hr Q8H-IV [facility] Administration Insulin Aspart 1 vial 07/14/17 11:15 07/24/17 16:37 Novolog Vial Sliding Scale - SQ 2 units ACHS [facility] Administration Protocol Insulin Detemir 80 units 07/22/17 07:00 07/24/17 06:44 Levemir Vial SQ 80 units DAILY@0700 [facility] Administration Levothyroxine Sodium 100 mcg 07/12/17 07:00 07/24/17 06:44 Synthroid - PO 100 mcg DAILY@0700 [facility] Administration Liraglutide 1.8 mg 07/13/17 07:00 07/24/17 06:47 Victoza - SQ 1.8 mg DAILY@0700 [facility] Administration Oxycodone HCl 10 mg 07/12/17 22:00 07/23/17 22:50 Roxicodone - PO 10 mg HS [facility] Administration Oxycodone HCl 10 mg 07/23/17 11:46 07/23/17 13:05 Roxicodone - PO 10 mg Q6H PRN Administration PAIN LEVEL 6-10 Oxycodone HCl 10 mg 07/23/17 14:20 07/24/17 17:12 Roxicodone - PO 10 mg Q4H PRN Administration MODERATE PAIN Objective: Vital Signs Period Temp Pulse Resp BP Sys/Mehta Pulse Ox Last 24 Hr 97.6 F-97.8 F 82-86 18-20 116-133/65-73 97-97
[2017-07-24] MEDS: ATORVASTATIN CA 80 MG TABLET (FP) PO SCH (22:34)
[2017-07-24] MEDS: oxyCODONE HCL 5 MG TABLET PO SCH (22:35)
[2017-07-25] MEDS: oxyCODONE HCL 5 MG TABLET PO SCH ×2 (00:15→21:45)
[2017-07-25] MEDS: ACETAMINOPHEN 325 MG TABLET (FP) PO PRN (00:16)
[2017-07-25] MEDS ORDERED: PT OWN MED DRAWER 7, Y5N ONE ×4 (01:45→16:10)
[2017-07-25] MEDS: CEFTAZIDIME PENTAHYDRATE 1 GM in DEXTROSE 5%-WATER - 50 ML IVPB SCH ×3 (01:55→17:29)
[2017-07-25] MEDS: INSULIN SLIDING SCALE (NOVOLOG) 1 VIAL SQ SCH ×4 (06:43→21:47)
[2017-07-25] MEDS: LEVOTHYROXINE NA 100 MCG TABLET (FP) PO SCH (06:44)
[2017-07-25] MEDS: INSULIN (LEVEMIR) 100 UNITS/ML UNITS SQ SCH (06:44)
[2017-07-25] MEDS: LIRAGLUTIDE 0.6 MG/0.1 ML PEN.INJCTR SQ SCH (06:45)
[2017-07-25] MEDS: oxyCODONE HCL 5 MG TABLET PO PRN ×4 (06:47→19:32)
[2017-07-25] MEDS ORDERED: INSULIN (LEVEMIR) 100 UNITS/ML UNITS SQ ONE (07:24)
[2017-07-25] MEDS: ALBUTEROL SO4 2.5/IPRATROPIUM 0.5 INH SOL 3 ML VIAL.NEB. NEB PRN ×3 (08:10→17:14)
[2017-07-25 08:47] LABS: BASO % 0.4 % (0-2.0); EOS % 2.3 % (0-4.5); HEMATOCRIT 26.8 % (35.4-49); HEMOGLOBIN 8.8 GM/dL (11.7-16.9); LYMPH % 9.6 % (8-40); MCHC 32.9 g/dl (32.0-35.9); MEAN CELL VOLUME 97.4 fl (80-96); MEAN PLT VOLUME 8.7 fl (7.5-11.1); MONO % 7.5 % (3.8-10.2); NEUT % 80.2 % (42.8-82.8); PLATELET COUNT 191 K/MM3 (134-434); RBC 2.75 M/mm3 (4.00-5.60); RDW 17.8 % (11.9-15.9); WHITE BLOOD COUNT 10.7 K/mm3 (4.0-10.0)
[2017-07-25 09:15] LABS: ANION GAP 5 (8-16); BLOOD UREA NITROGEN 77 mg/dL (7-18); CALCIUM 8.1 mg/dL (8.5-10.1); CHLORIDE 111 mmol/L (98-107); CO2 27 mmol/L (21-32); GLUCOSE,RANDOM 133 mg/dL (74-106); POTASSIUM 4.3 mmol/L (3.5-5.1); SODIUM 143 mmol/L (136-145); TOT PROT 6.8 g/dl (6.4-8.2)
[2017-07-25 09:16] LABS: ALBUMIN 2.6 g/dl (3.4-5.0); ALK PHOS 69 U/L (45-117); BILIRUBIN,TOTAL 0.7 mg/dL (0.2-1.0); SGOT/AST 24 U/L (15-37); SGPT/ALT 60 U/L (12-78)
[2017-07-25] MEDS ORDERED: HEPARIN NA (PORCINE) 5,000 UNITS/ML 1ML VIAL IVPUSH PRN (09:33)
[2017-07-25] MEDS: COLCHICINE 0.6 MG TABLET (FP) PO SCH (09:35)
[2017-07-25] MEDS: HEPARIN NA (PORCINE) 5,000 UNITS/ML 1ML VIAL IVPUSH PRN ×2 (09:36→16:38)
[2017-07-25] MEDS: ATENOLOL 50 MG TABLET (FP) PO SCH ×2 (09:36→21:48)
[2017-07-25] MEDS: ASPIRIN 81 MG CHEWABLE TABLETS PO SCH (09:36)
[2017-07-25] MEDS: FEBUXOSTAT 40 MG TAB PO SCH (09:37)
[2017-07-25] MEDS: FUROSEMIDE 40 MG/4 ML INJECTABLE VIAL IVPUSH SCH (09:37)
[2017-07-25] MEDS: glipiZIDE-XL 10 MG TAB.ER.24 (FP) PO SCH ×2 (09:37→21:46)
[2017-07-25] MEDS: COLLAGENASE CLOSTRIDIUM HIST. 30 GRAMS TUBE TP SCH (09:38)
[2017-07-25] MEDS: BACITRACIN 15 GM TUBE TOPICAL OINTMENT TP SCH (09:38)
--- NOTE | 2017-07-25 10:28 | PN ---
Progress Note (short form) - Note Progress Note: X-FIX IN PLACE MINIMAL IF ANY DRAINAGE NVI PLAN: OOB, NWB TO [facility]
--- NOTE | 2017-07-25 10:41 | PN ---
Progress Note (short form) - Note Progress Note: RENAL Pt is awake and alert has intermittent pain that is improved with percocet Last Vital Signs Temp Pulse Resp BP Pulse Ox 98.2 F 90 18 110/60 96 07/25/17 08:43 07/25/17 08:43 07/25/17 08:43 07/25/17 08:43 07/25/17 09:00 lungs clear anteriorly cvs s1s2 rr abd soft, morbidly obese ext +edema, has pins in left foot, mild cyanosis of fingernails neuro a+ox3 CBC, BMP 07/25/17 07:58 07/25/17 07:52 Current Medications Generic Name Dose Route Start Last Admin Trade Name Freq PRN Reason Stop Dose Admin Acetaminophen 650 mg 07/12/17 08:03 07/20/17 16:18 Tylenol - PO 650 mg Q8H PRN Administration FEVER Acetaminophen 650 mg 07/23/17 11:46 07/25/17 00:16 Tylenol - PO 650 mg Q6H PRN Administration PAIN LEVEL 6-10 Albuterol/Ipratropium 1 amp 07/21/17 13:45 07/24/17 20:05 Duoneb - NEB 1 amp Q4H PRN Administration SHORTNESS OF BREATH Aspirin 81 mg 07/20/17 10:00 07/25/17 09:36 Asa - PO 81 mg DAILY NEIL Administration Atenolol 100 mg 07/12/17 10:00 07/25/17 09:36 Tenormin - PO 100 mg BID NEIL Administration Atorvastatin Calcium 80 mg 07/12/17 22:00 07/24/17 22:34 Lipitor - PO 80 mg HS NEIL Administration Bacitracin 1 applic 07/14/17 17:15 07/25/17 09:38 Bacitracin - TP Not Given DAILY NEIL Colchicine 0.6 mg 07/19/17 10:00 07/25/17 09:35 Colcrys - PO 0.6 mg DAILY NEIL Administration Collagenase 1 applic 07/12/17 10:00 07/25/17 09:38 Santyl - TP 1 applic DAILY NEIL Administration Febuxostat 40 mg 07/21/17 10:00 07/25/17 09:37 Uloric - PO 40 mg DAILY NEIL Administration Furosemide 80 mg 07/23/17 10:00 07/25/17 09:37 Lasix Injection - IVPUSH 80 mg DAILY [facility] Administration Glipizide 10 mg 07/12/17 10:00 07/25/17 09:37 Glucotrol Xl - PO 10 mg BID [facility] Administration Heparin Sodium (Porcine) 1,000 unit 07/25/17 09:33 Heparin - IVPUSH PRN PRN Heparin Heparin Sodium (Porcine) 5,000 unit 07/25/17 09:33 07/25/17 09:36 Heparin - IVPUSH 5,000 unit PRN PRN Administration Heparin Vancomycin HCl 1,000 mg/ 250 mls @ 200 mls/hr 07/17/17 15:00 07/24/17 17:51 Dextrose IVPB 200 mls/hr Q24H [facility] Administration Protocol Ceftazidime 1 gm/ Dextrose 50 mls @ 100 mls/hr 07/19/17 13:45 07/25/17 09:38 IVPB 100 mls/hr Q8H-IV NEIL Administration Insulin Aspart 1 vial 07/14/17 11:15 07/25/17 06:43 Novolog Vial Sliding Scale - SQ Not [facility] Insulin Detemir 80 units 07/22/17 07:00 07/25/17 06:44 Levemir Vial SQ 80 units DAILY@0700 [facility] Administration Levothyroxine Sodium 100 mcg 07/12/17 07:00 07/25/17 06:44 Synthroid - PO 100 mcg DAILY@0700 [facility] Administration Liraglutide 1.8 mg 07/13/17 07:00 07/25/17 06:45 Victoza - SQ 1.8 mg DAILY@0700 [facility] Administration Oxycodone HCl 10 mg 07/23/17 11:46 07/24/17 20:37 Roxicodone - PO 10 mg Q6H PRN Administration PAIN LEVEL 6-10 Oxycodone HCl 10 mg 07/23/17 14:20 07/25/17 06:47 Roxicodone - PO 10 mg Q4H PRN Administration MODERATE PAIN Oxycodone HCl 10 mg 07/25/17 00:15 07/25/17 00:15 Roxicodone - PO 10 mg HS [facility] Administration Impression 1. CKD- non proteinuric 2. KRUNAL- low urine sodium 3. volume overload 4. obesity 5. CAD 6. cellulitis 7. s/p fall 8. a-fib 9. DM 10. hypothyroidism 11. HLD 12. CHF 13. s/p leg fracture Plan continue current management ortho note read and appreciated monitor renal function avoid nephrotoxins and hypotension PT MV
[2017-07-25] MEDS ORDERED: INSULIN (NOVOLOG) ASPART 100 UNITS/ML 10ML VIAL ONE (11:07)
--- NOTE | 2017-07-25 12:51 | PN ---
Progress Note (short form) - Note Progress Note: PULMONARY Denies shortness of breath, cough or wheezing. Using his home BiPAP. Last Vital Signs Temp Pulse Resp BP Pulse Ox 98.2 F 90 18 110/60 96 07/25/17 08:43 07/25/17 08:43 07/25/17 08:43 07/25/17 08:43 07/25/17 09:00 Gen: NAD at rest Heart: RRR Lung: distant breath sounds Abd: soft, nontender Ext: chronic changes, dressings without drainage CBC, BMP 07/25/17 07:58 07/25/17 07:52 Active Medications Acetaminophen (Tylenol -) 650 mg PO Q8H PRN PRN Reason: FEVER Last Admin: 07/20/17 16:18 Dose: 650 mg Acetaminophen (Tylenol -) 650 mg PO Q6H PRN PRN Reason: PAIN LEVEL 6-10 Last Admin: 07/25/17 00:16 Dose: 650 mg Albuterol/Ipratropium (Duoneb -) 1 amp NEB Q4H PRN PRN Reason: SHORTNESS OF BREATH Last Admin: 07/24/17 20:05 Dose: 1 amp Aspirin (Asa -) 81 mg PO DAILY [facility] Last Admin: 07/25/17 09:36 Dose: 81 mg Atenolol (Tenormin -) 100 mg PO BID [facility] Last Admin: 07/25/17 09:36 Dose: 100 mg Atorvastatin Calcium (Lipitor -) 80 mg PO HS [facility] Last Admin: 07/24/17 22:34 Dose: 80 mg Bacitracin (Bacitracin -) 1 applic TP DAILY [facility] Last Admin: 07/25/17 09:38 Dose: Not Given Colchicine (Colcrys -) 0.6 mg PO DAILY [facility] Last Admin: 07/25/17 09:35 Dose: 0.6 mg Collagenase (Santyl -) 1 applic TP DAILY [facility] Last Admin: 07/25/17 09:38 Dose: 1 applic Febuxostat (Uloric -) 40 mg PO DAILY [facility] Last Admin: 07/25/17 09:37 Dose: 40 mg Furosemide (Lasix Injection -) 80 mg IVPUSH DAILY [facility] Last Admin: 07/25/17 09:37 Dose: 80 mg Glipizide (Glucotrol Xl -) 10 mg PO BID [facility] Last Admin: 07/25/17 09:37 Dose: 10 mg Heparin Sodium (Porcine) (Heparin -) 1,000 unit IVPUSH PRN PRN PRN Reason: Heparin Heparin Sodium (Porcine) (Heparin -) 5,000 unit IVPUSH PRN PRN PRN Reason: Heparin Last Admin: 07/25/17 09:36 Dose: 5,000 unit Vancomycin HCl 1,000 mg/ (Dextrose) 250 mls @ 200 mls/hr IVPB Q24H NEIL PRN Reason: Protocol Last Admin: 07/24/17 17:51 Dose: 200 mls/hr Ceftazidime 1 gm/ Dextrose 50 mls @ 100 mls/hr IVPB Q8H-IV NEIL Last Admin: 07/25/17 09:38 Dose: 100 mls/hr Heparin Sodium (Porcine) 25, (000 unit/ Sodium Chloride) 500 mls @ 22 mls/hr IV TITR NEIL; 1,100 UNIT/HR PRN Reason: Protocol Insulin Aspart (Novolog Vial Sliding Scale -) 1 vial SQ ACHS [facility] PRN Reason: Protocol Last Admin: 07/25/17 11:13 Dose: Not Given Insulin Detemir (Levemir Vial) 80 units SQ DAILY@0700 [facility] Last Admin: 07/25/17 06:44 Dose: 80 units Levothyroxine Sodium (Synthroid -) 100 mcg PO DAILY@0700 [facility] Last Admin: 07/25/17 06:44 Dose: 100 mcg Liraglutide (Victoza -) 1.8 mg SQ DAILY@0700 [facility] Last Admin: 07/25/17 06:45 Dose: 1.8 mg Oxycodone HCl (Roxicodone -) 10 mg PO Q6H PRN PRN Reason: PAIN LEVEL 6-10 Last Admin: 07/24/17 20:37 Dose: 10 mg Oxycodone HCl (Roxicodone -) 10 mg PO Q4H PRN PRN Reason: MODERATE PAIN Last Admin: 07/25/17 11:10 Dose: 10 mg Oxycodone HCl (Roxicodone -) 10 mg PO [facility] Last Admin: 07/25/17 00:15 Dose: 10 mg A/P Cellulitis Left Ankle Fracture Morbid Obesity ASHLEY Atrial Fibrillation CAD h/o DVT/PE CKD - continue antibiotics - BiPAP at night 09/10 - inhaled bronchodilators - O2 to keep SpO2 >90% - continue anticoagulation - would contact Jolly murillo tomorrow as he is due for a new BiPAP and has been experiencing difficulty obtaining a new one
[2017-07-25] MEDS: VANCOMYCIN 1,000 MG in DEXTROSE 5%-WATER - 250 ML IVPB SCH (14:38)
--- NOTE | 2017-07-25 14:59 | PN ---
Progress Note (short form) - Note Progress Note: Medical coverage for Dr. Hudson Subjective: The patient was seen and examined at the bedside, he has no complaints at this time. Current Medications Generic Name Dose Route Start Last Admin Trade Name Freq PRN Reason Stop Dose Admin Acetaminophen 650 mg 07/12/17 08:03 07/20/17 16:18 Tylenol - PO 650 mg Q8H PRN Administration FEVER Acetaminophen 650 mg 07/23/17 11:46 07/25/17 00:16 Tylenol - PO 650 mg Q6H PRN Administration PAIN LEVEL 6-10 Albuterol/Ipratropium 1 amp 07/21/17 13:45 07/24/17 20:05 Duoneb - NEB 1 amp Q4H PRN Administration SHORTNESS OF BREATH Aspirin 81 mg 07/20/17 10:00 07/25/17 09:36 Asa - PO 81 mg DAILY NEIL Administration Atenolol 100 mg 07/12/17 10:00 07/25/17 09:36 Tenormin - PO 100 mg BID NEIL Administration Atorvastatin Calcium 80 mg 07/12/17 22:00 07/24/17 22:34 Lipitor - PO 80 mg HS NEIL Administration Bacitracin 1 applic 07/14/17 17:15 07/25/17 09:38 Bacitracin - TP Not Given DAILY NEIL Colchicine 0.6 mg 07/19/17 10:00 07/25/17 09:35 Colcrys - PO 0.6 mg DAILY NEIL Administration Collagenase 1 applic 07/12/17 10:00 07/25/17 09:38 Santyl - TP 1 applic DAILY NEIL Administration Febuxostat 40 mg 07/21/17 10:00 07/25/17 09:37 Uloric - PO 40 mg DAILY NEIL Administration Furosemide 80 mg 07/23/17 10:00 07/25/17 09:37 Lasix Injection - IVPUSH 80 mg DAILY NEIL Administration Glipizide 10 mg 07/12/17 10:00 07/25/17 09:37 Glucotrol Xl - PO 10 mg BID NEIL Administration Heparin Sodium (Porcine) 1,000 unit 07/25/17 09:33 Heparin - IVPUSH PRN PRN Heparin Heparin Sodium (Porcine) 5,000 unit 07/25/17 09:33 07/25/17 09:36 Heparin - IVPUSH 5,000 unit PRN PRN Administration Heparin Vancomycin HCl 1,000 mg/ 250 mls @ 200 mls/hr 07/17/17 15:00 07/25/17 14:38 Dextrose IVPB 200 mls/hr Q24H NEIL Administration Protocol Ceftazidime 1 gm/ Dextrose 50 mls @ 100 mls/hr 07/19/17 13:45 07/25/17 09:38 IVPB 100 mls/hr Q8H-IV NEIL Administration Heparin Sodium (Porcine) 25, 500 mls @ 22 mls/hr 07/25/17 12:00 000 unit/ Sodium Chloride IV TITR NEIL Protocol 1,100 UNIT/HR Insulin Aspart 1 vial 07/14/17 11:15 07/25/17 11:13 Novolog Vial Sliding Scale - SQ Not Given [facility] Protocol Insulin Detemir 80 units 07/22/17 07:00 07/25/17 06:44 Levemir Vial SQ 80 units DAILY@0700 [facility] Administration Levothyroxine Sodium 100 mcg 07/12/17 07:00 07/25/17 06:44 Synthroid - PO 100 mcg DAILY@0700 [facility] Administration Liraglutide 1.8 mg 07/13/17 07:00 07/25/17 06:45 Victoza - SQ 1.8 mg DAILY@0700 [facility] Administration Oxycodone HCl 10 mg 07/23/17 11:46 07/24/17 20:37 Roxicodone - PO 10 mg Q6H PRN Administration PAIN LEVEL 6-10 Oxycodone HCl 10 mg 07/23/17 14:20 07/25/17 11:10 Roxicodone - PO 10 mg Q4H PRN Administration MODERATE PAIN Oxycodone HCl 10 mg 07/25/17 00:15 07/25/17 00:15 Roxicodone - PO 10 mg HS NEIL Administration Objective: Vital Signs Period Temp Pulse Resp BP Sys/Mehta Pulse Ox Last 24 Hr 97.6 F-98.7 F 81-91 18-21 108-134/53-76 96-98 Ext: Left leg x-fix in place. Patient has minimal b/l foot/toe sensation. Patient reports same as prior to surgery CBCD WBC 10.7 K/mm3 (4.0-10.0) H 07/25/17 07:58 RBC 2.75 M/mm3 (4.00-5.60) L 07/25/17 07:58 Hgb 8.8 GM/dL (11.7-16.9) L 07/25/17 07:58 Hct 26.8 % (35.4-49) L 07/25/17 07:58 MCV 97.4 fl (80-96) H 07/25/17 07:58 MCHC 32.9 g/dl (32.0-35.9) 07/25/17 07:58 RDW 17.8 % (11.9-15.9) H 07/25/17 07:58 Plt Count 191 K/MM3 (134-434) 07/25/17 07:58 MPV 8.7 fl (7.5-11.1) 07/25/17 07:58 CMP Sodium 143 mmol/L (136-145) 07/25/17 07:52 Potassium 4.3 mmol/L (3.5-5.1) 07/25/17 07:52 Chloride 111 mmol/L (98-107) H 07/25/17 07:52 Carbon Dioxide 27 mmol/L (21-32) 07/25/17 07:52 Anion Gap 5 (8-16) L 07/25/17 07:52 BUN 77 mg/dL (7-18) H 07/25/17 07:52 Creatinine 2.0 mg/dL (0.7-1.3) H 07/25/17 07:52 Creat Clearance w eGFR 34.03 (>60) 07/25/17 07:52 Random Glucose 133 mg/dL (74-106) H D 07/25/17 07:52 Calcium 8.1 mg/dL (8.5-10.1) L 07/25/17 07:52 Total Bilirubin 0.7 mg/dL (0.2-1.0) 07/25/17 07:52 AST 24 U/L (15-37) D 07/25/17 07:52 ALT 60 U/L (12-78) 07/25/17 07:52 Alkaline Phosphatase 69 U/L (45-117) 07/25/17 07:52 Total Protein 6.8 g/dl (6.4-8.2) 07/25/17 07:52 Albumin 2.6 g/dl (3.4-5.0) L 07/25/17 07:52 CARDIAC ENZYMES Troponin I 0.03 ng/ml (0.00-0.05) D 07/11/17 22:00 Microbiology 07/11/17 22:40 Blood - Peripheral Venous Blood Culture - Final NO GROWTH AFTER 5 DAYS INCUBATION 07/11/17 22:00 Blood - Peripheral Venous Blood Culture - Final NO GROWTH AFTER 5 DAYS INCUBATION 07/12/17 05:15 Leg - Right Lower Gram Stain - Final 07/12/17 05:15 Leg - Right Lower Wound Culture - Final Pseudomonas Aeruginosa Klebsiella Pneumoniae Mr S Aureus Diphtheroid/Corynebacterium Alcaligenes Species 07/12/17 05:30 Urine - Urine Clean Catch Urine Culture - Final Contaminated: Please Repeat Assessment:
--- NOTE | 2017-07-25 16:22 | PN ---
Progress Note, Physician History of Present Illness: Pt without new complaints. Pain in leg controlled. Remains afebrile, without acute distress. - Current Medication List Current Medications: Active Medications Acetaminophen (Tylenol -) 650 mg PO Q8H PRN PRN Reason: FEVER Last Admin: 07/20/17 16:18 Dose: 650 mg Acetaminophen (Tylenol -) 650 mg PO Q6H PRN PRN Reason: PAIN LEVEL 6-10 Last Admin: 07/25/17 00:16 Dose: 650 mg Albuterol/Ipratropium (Duoneb -) 1 amp NEB Q4H PRN PRN Reason: SHORTNESS OF BREATH Last Admin: 07/24/17 20:05 Dose: 1 amp Aspirin (Asa -) 81 mg PO DAILY [facility] Last Admin: 07/25/17 09:36 Dose: 81 mg Atenolol (Tenormin -) 100 mg PO BID [facility] Last Admin: 07/25/17 09:36 Dose: 100 mg Atorvastatin Calcium (Lipitor -) 80 mg PO HS [facility] Last Admin: 07/24/17 22:34 Dose: 80 mg Bacitracin (Bacitracin -) 1 applic TP DAILY [facility] Last Admin: 07/25/17 09:38 Dose: Not Given Colchicine (Colcrys -) 0.6 mg PO DAILY [facility] Last Admin: 07/25/17 09:35 Dose: 0.6 mg Collagenase (Santyl -) 1 applic TP DAILY [facility] Last Admin: 07/25/17 09:38 Dose: 1 applic Febuxostat (Uloric -) 40 mg PO DAILY [facility] Last Admin: 07/25/17 09:37 Dose: 40 mg Furosemide (Lasix Injection -) 80 mg IVPUSH DAILY [facility] Last Admin: 07/25/17 09:37 Dose: 80 mg Glipizide (Glucotrol Xl -) 10 mg PO BID [facility] Last Admin: 07/25/17 09:37 Dose: 10 mg Heparin Sodium (Porcine) (Heparin -) 1,000 unit IVPUSH PRN PRN PRN Reason: Heparin Heparin Sodium (Porcine) (Heparin -) 5,000 unit IVPUSH PRN PRN PRN Reason: Heparin Last Admin: 07/25/17 09:36 Dose: 5,000 unit Vancomycin HCl 1,000 mg/ (Dextrose) 250 mls @ 200 mls/hr IVPB Q24H NEIL PRN Reason: Protocol Last Admin: 07/25/17 14:38 Dose: 200 mls/hr Ceftazidime 1 gm/ Dextrose 50 mls @ 100 mls/hr IVPB Q8H-IV [facility] Last Admin: 07/25/17 09:38 Dose: 100 mls/hr Heparin Sodium (Porcine) 25, (000 unit/ Sodium Chloride) 500 mls @ 22 mls/hr IV TITR NEIL; 1,100 UNIT/HR PRN Reason: Protocol Insulin Aspart (Novolog Vial Sliding Scale -) 1 vial SQ ACHS [facility] PRN Reason: Protocol Last Admin: 07/25/17 11:13 Dose: Not Given Insulin Detemir (Levemir Vial) 80 units SQ DAILY@0700 [facility] Last Admin: 07/25/17 06:44 Dose: 80 units Levothyroxine Sodium (Synthroid -) 100 mcg PO DAILY@0700 [facility] Last Admin: 07/25/17 06:44 Dose: 100 mcg Liraglutide (Victoza -) 1.8 mg SQ DAILY@0700 [facility] Last Admin: 07/25/17 06:45 Dose: 1.8 mg Oxycodone HCl (Roxicodone -) 10 mg PO Q6H PRN PRN Reason: PAIN LEVEL 6-10 Last Admin: 07/24/17 20:37 Dose: 10 mg Oxycodone HCl (Roxicodone -) 10 mg PO Q4H PRN PRN Reason: MODERATE PAIN Last Admin: 07/25/17 15:19 Dose: 10 mg Oxycodone HCl (Roxicodone -) 10 mg PO [facility] Last Admin: 07/25/17 00:15 Dose: 10 mg - Objective Vital Signs: Vital Signs Temperature 98.7 F 07/25/17 14:40 Pulse Rate 88 07/25/17 14:40 Respiratory Rate 20 07/25/17 14:40 Blood Pressure 108/53 07/25/17 14:40 O2 Sat by Pulse Oximetry (%) 96 07/25/17 09:00 Constitutional: Yes: No Distress Cardiovascular: Yes: Regular Rate and Rhythm Respiratory: Yes: Regular, On BiPap Gastrointestinal: Yes: Normal Bowel Sounds, Soft Extremities: Yes: Other (LE hardward intact, foot edema/erythema/tenderness) Neurological: Yes: Alert, Oriented Labs: CBC, BMP 07/25/17 07:58 07/25/17 07:52 INR, PTT INR 1.32 (0.82-1.09) H 07/20/17 06:30 Problem List - Problems (1) Acute renal failure (ARF) Code(s): N17.9 - ACUTE KIDNEY FAILURE, UNSPECIFIED (2) CKD (chronic kidney disease) Code(s): N18.9 - CHRONIC KIDNEY DISEASE, UNSPECIFIED (3) COPD (chronic obstructive pulmonary disease) Code(s): J44.9 - CHRONIC OBSTRUCTIVE PULMONARY DISEASE, UNSPECIFIED (4) Cellulitis Code(s): L03.90 - CELLULITIS, UNSPECIFIED (5) Pulmonary HTN Code(s): I27.20 - PULMONARY HYPERTENSION, UNSPECIFIED (6) Sleep apnea Code(s): G47.30 - SLEEP APNEA, UNSPECIFIED (7) CAD (coronary artery disease) Code(s): I25.10 - ATHSCL HEART DISEASE OF [place] CORONARY ARTERY W/O ANG PCTRS (8) CHF (congestive heart failure) Code(s): I50.9 - HEART FAILURE, UNSPECIFIED (9) Venous (peripheral) insufficiency Code(s): I87.2 - VENOUS INSUFFICIENCY (CHRONIC) (PERIPHERAL) Assessment/Plan Pt with infected Lt leg wound +pseudomonas/MRSA Lt tibial fracture continue antibiotics repeat vancomycin trough in am renal function improving, continue monitor wound care pt stable at this time
[2017-07-25] MEDS: HEPARIN - 25,000 UNIT in SODIUM CHLORIDE 495 ML IV SCH (16:37)
[2017-07-25] MEDS ORDERED: DOCUSATE SODIUM 100 MG CAPSULE (FP) PO PRN (18:46)
[2017-07-25] MEDS: ATORVASTATIN CA 80 MG TABLET (FP) PO SCH (21:46)
[2017-07-26] MEDS ORDERED: PT OWN MED DRAWER 7, Y5N ONE ×5 (01:19→21:35)
[2017-07-26] MEDS: CEFTAZIDIME PENTAHYDRATE 1 GM in DEXTROSE 5%-WATER - 50 ML IVPB SCH ×3 (01:42→17:57)
[2017-07-26] MEDS: INSULIN SLIDING SCALE (NOVOLOG) 1 VIAL SQ SCH ×4 (06:17→21:34)
[2017-07-26] MEDS: LEVOTHYROXINE NA 100 MCG TABLET (FP) PO SCH (06:30)
[2017-07-26] MEDS: LIRAGLUTIDE 0.6 MG/0.1 ML PEN.INJCTR SQ SCH (06:30)
[2017-07-26] MEDS: INSULIN (LEVEMIR) 100 UNITS/ML UNITS SQ SCH (06:30)
[2017-07-26] MEDS: oxyCODONE HCL 5 MG TABLET PO PRN ×4 (06:33→21:36)
[2017-07-26] MEDS: ALBUTEROL SO4 2.5/IPRATROPIUM 0.5 INH SOL 3 ML VIAL.NEB. NEB PRN ×4 (07:38→21:31)
[2017-07-26 07:40] LABS: HEMATOCRIT 26.9 % (35.4-49); HEMOGLOBIN 8.8 GM/dL (11.7-16.9); MCH 31.7 pg (25.7-33.7); MCHC 32.5 g/dl (32.0-35.9); MEAN CELL VOLUME 97.5 fl (80-96); MEAN PLT VOLUME 8.6 fl (7.5-11.1); PLATELET COUNT 195 K/MM3 (134-434); RBC 2.76 M/mm3 (4.00-5.60); RDW 17.8 % (11.9-15.9); WHITE BLOOD COUNT 10.1 K/mm3 (4.0-10.0)
[2017-07-26 08:07] LABS: ALBUMIN 2.5 g/dl (3.4-5.0); ALK PHOS 69 U/L (45-117); ANION GAP 5 (8-16); BILIRUBIN,TOTAL 0.8 mg/dL (0.2-1.0); BLOOD UREA NITROGEN 64 mg/dL (7-18); CALCIUM 8.1 mg/dL (8.5-10.1); CHLORIDE 110 mmol/L (98-107); CO2 27 mmol/L (21-32); CREATININE 1.9 mg/dL (0.7-1.3); GLUCOSE,RANDOM 135 mg/dL (74-106); POTASSIUM 4.3 mmol/L (3.5-5.1); SGOT/AST 24 U/L (15-37); SGPT/ALT 52 U/L (12-78); SODIUM 142 mmol/L (136-145); TOT PROT 6.6 g/dl (6.4-8.2)
--- NOTE | 2017-07-26 08:15 | PN ---
Progress Note (short form) - Note Progress Note: Comfortable in bed on BIPAP. Left ankle exteranl fixation and wound intact. Cleared by Dr Thayer for D/C. BUN/Creat improved SNF rehab discussed with patient. Vital Signs Temp 98 F 07/26/17 06:00 Pulse 80 07/26/17 06:00 Resp 68 H 07/26/17 06:00 BP 138/72 07/26/17 06:00 Pulse Ox 96 07/25/17 21:00 Intake & Output 07/25/17 07/25/17 07/26/17 11:59 23:59 11:59 Intake Total 754 1340 590 Output Total 3500 200 Balance 754 -2160 390 Weight 440 lb 8 oz 454 lb Intake: IV 504 540 540 Heparin - 25,000 Unit In 504 540 540 Normal Saline - 495 ml @ 1,100 UNIT/HR 22 mls/hr IV TITR NEIL Rx#: [id number] IVPB 50 400 50 Oral 200 400 Output: Urine 3500 200 Void 3500 200 Other: Voiding Method Urinal Urinal Bowel Movement No No Weight Measurement Method Built in Bedscale [facility] Neck-no JVD, no Bruits Lungs are Clear. Heart S1S2 irregular, irregular Abdomen soft NT, obese LE 1-2 edema pretibial. Laboratory Results - last 24 hr 07/25/17 07/25/17 07/25/17 07:52 07:58 07:58 WBC 10.7 H RBC 2.75 L Hgb 8.8 L Hct 26.8 L MCV 97.4 H MCH 32.0 MCHC 32.9 RDW 17.8 H Plt Count 191 MPV 8.7 Neutrophils % 80.2 Lymphocytes % 9.6 Monocytes % 7.5 Eosinophils % 2.3 Basophils % 0.4 D PTT (Actin FS) 38.4 H Sodium 143 Potassium 4.3 Chloride 111 H Carbon Dioxide 27 Anion Gap 5 L BUN 77 H Creatinine 2.0 H Creat Clearance w eGFR 34.03 POC Glucometer Random Glucose 133 H D Calcium 8.1 L Total Bilirubin 0.7 AST 24 D ALT 60 Alkaline Phosphatase 69 Total Protein 6.8 Albumin 2.6 L 07/25/17 07/25/17 07/25/17 11:13 15:35 16:41 WBC RBC Hgb Hct MCV MCH MCHC RDW Plt Count MPV Neutrophils % Lymphocytes % Monocytes % Eosinophils % Basophils % PTT (Actin FS) 33.9 Sodium Potassium Chloride Carbon Dioxide Anion Gap BUN Creatinine Creat Clearance w eGFR POC Glucometer 181 194 Random Glucose Calcium Total Bilirubin AST ALT Alkaline Phosphatase Total Protein Albumin 07/25/17 07/25/17 07/26/17 20:49 21:50 05:24 WBC RBC Hgb Hct MCV MCH MCHC RDW Plt Count MPV Neutrophils % Lymphocytes % Monocytes % Eosinophils % Basophils % PTT (Actin FS) 86.4 H D Sodium Potassium Chloride Carbon Dioxide Anion Gap BUN Creatinine Creat Clearance w eGFR POC Glucometer 211 143 Random Glucose Calcium Total Bilirubin AST ALT Alkaline Phosphatase Total Protein Albumin 07/26/17 07/26/17 07:26 07:26 WBC 10.1 H RBC 2.76 L Hgb 8.8 L Hct 26.9 L MCV 97.5 H MCH 31.7 MCHC 32.5 RDW 17.8 H Plt Count 195 MPV 8.6 Neutrophils % Lymphocytes % Monocytes % Eosinophils % Basophils % PTT (Actin FS) 69.1 H Sodium Potassium Chloride Carbon Dioxide Anion Gap BUN Creatinine Creat Clearance w eGFR POC Glucometer Random Glucose Calcium Total Bilirubin AST ALT Alkaline Phosphatase Total Protein Albumin Current Active Problems Problem Status Onset Accident due to mechanical fall without injury Acute Acute gouty arthritis Acute Acute renal failure (ARF) Acute Acute renal insufficiency Acute CKD (chronic kidney disease) Acute COPD (chronic obstructive pulmonary disease) Acute Cellulitis Acute Dyspnea Acute Hyperkalemia, diminished renal excretion Acute Open left ankle fracture Acute Pain of left lower leg Acute Pulmonary HTN Acute Sleep apnea Acute Plan D/C planning-SNF D/c Heparin Start Xarelto PO. Problem List - Problems (1) Atrial fibrillation Code(s): I48.91 - UNSPECIFIED ATRIAL FIBRILLATION Qualifiers: Atrial fibrillation type: chronic Qualified Code(s): I48.2 - Chronic atrial fibrillation (2) CHF (congestive heart failure) Code(s): I50.9 - HEART FAILURE, UNSPECIFIED (3) Cellulitis of right leg Code(s): L03.115 - CELLULITIS OF RIGHT LOWER LIMB (4) Diabetes Code(s): E11.9 - TYPE 2 DIABETES MELLITUS WITHOUT COMPLICATIONS Qualifiers: Diabetes mellitus type: type 2 Diabetes mellitus complication status: with circulatory complication (5) Acute renal failure (ARF) Code(s): N17.9 - ACUTE KIDNEY FAILURE, UNSPECIFIED (6) Acute renal insufficiency Code(s): N28.9 - DISORDER OF KIDNEY AND URETER, UNSPECIFIED (7) Acute gouty arthritis Code(s): M10.9 - GOUT, UNSPECIFIED (8) Open left ankle fracture Code(s): S82.892B - OTH FRACTURE OF LEFT LOWER LEG, INIT FOR OPN FX TYPE I/2 Qualifiers: Encounter type: initial encounter
--- NOTE | 2017-07-26 08:23 | DS ---
Physical Examination Vital Signs: Vital Signs Temperature 98 F 07/26/17 06:00 Pulse Rate 80 07/26/17 06:00 Respiratory Rate 68 H 07/26/17 06:00 Blood Pressure 138/72 07/26/17 06:00 O2 Sat by Pulse Oximetry (%) 96 07/25/17 21:00 Constitutional: Yes: Anxious, Mild Distress Eyes: Yes: Conjunctiva Clear, EOM Intact HENT: Yes: Atraumatic, Normocephalic, Other (BIPAP mask) Neck: Yes: Supple, Trachea Midline Cardiovascular: Yes: Pulse Irregular (A.Fib), S1, S2 Respiratory: Yes: Regular, CTA Bilaterally Gastrointestinal: Yes: Normal Bowel Sounds, Soft, Abdomen, Obese ...Rectal Exam: Yes: Deferred Renal/: No: Anuria Breast(s): Yes: WNL Musculoskeletal: Yes: Back Pain Extremities: Yes: Other (Left ankle with external fixation in place). No: Amputation, Calf Tenderness, Cold Edema: Yes Edema: LLE: 1+, RLE: 1+ Peripheral Pulses WNL: No Integumentary: Yes: Pressure Ulcer (right ankle ulcers) Neurological: Yes: Alert, Oriented. No: Aphasia, Asterixis, Ataxia, Dysarthria , Lethargy, Seizure, Tremors, Unresponsive ...Motor Strength: LUE (weakness), LLE (weakness) Psychiatric: Yes: Alert, Oriented, Agitated (occasionally). No: Suicidal Ideation Labs: CBC, BMP 07/26/17 07:26 Laboratory Results - last 24 hr 07/25/17 07/25/17 07/25/17 07:52 07:58 07:58 WBC 10.7 H RBC 2.75 L Hgb 8.8 L Hct 26.8 L MCV 97.4 H MCH 32.0 MCHC 32.9 RDW 17.8 H Plt Count 191 MPV 8.7 Neutrophils % 80.2 Lymphocytes % 9.6 Monocytes % 7.5 Eosinophils % 2.3 Basophils % 0.4 D PTT (Actin FS) 38.4 H Sodium 143 Potassium 4.3 Chloride 111 H Carbon Dioxide 27 Anion Gap 5 L BUN 77 H Creatinine 2.0 H Creat Clearance w eGFR 34.03 POC Glucometer Random Glucose 133 H D Calcium 8.1 L Total Bilirubin 0.7 AST 24 D ALT 60 Alkaline Phosphatase 69 Total Protein 6.8 Albumin 2.6 L 07/25/17 07/25/17 07/25/17 11:13 15:35 16:41 WBC RBC Hgb Hct MCV MCH MCHC RDW Plt Count MPV Neutrophils % Lymphocytes % Monocytes % Eosinophils % Basophils % PTT (Actin FS) 33.9 Sodium Potassium Chloride Carbon Dioxide Anion Gap BUN Creatinine Creat Clearance w eGFR POC Glucometer 181 194 Random Glucose Calcium Total Bilirubin AST ALT Alkaline Phosphatase Total Protein Albumin 07/25/17 07/25/17 07/26/17 20:49 21:50 05:24 WBC RBC Hgb Hct MCV MCH MCHC RDW Plt Count MPV Neutrophils % Lymphocytes % Monocytes % Eosinophils % Basophils % PTT (Actin FS) 86.4 H D Sodium Potassium Chloride Carbon Dioxide Anion Gap BUN Creatinine Creat Clearance w eGFR POC Glucometer 211 143 Random Glucose Calcium Total Bilirubin AST ALT Alkaline Phosphatase Total Protein Albumin 07/26/17 07/26/17 07:26 07:26 WBC 10.1 H RBC 2.76 L Hgb 8.8 L Hct 26.9 L MCV 97.5 H MCH 31.7 MCHC 32.5 RDW 17.8 H Plt Count 195 MPV 8.6 Neutrophils % Lymphocytes % Monocytes % Eosinophils % Basophils % PTT (Actin FS) 69.1 H Sodium Potassium Chloride Carbon Dioxide Anion Gap BUN Creatinine Creat Clearance w eGFR POC Glucometer Random Glucose Calcium Total Bilirubin AST ALT Alkaline Phosphatase Total Protein Albumin Discharge Summary Reason For Visit: RLE cellulitis Current Active Problems Accident due to mechanical fall without injury (Acute) Acute gouty arthritis (Acute) Acute renal failure (ARF) (Acute) Acute renal insufficiency (Acute) CKD (chronic kidney disease) (Acute) COPD (chronic obstructive pulmonary disease) (Acute) Cellulitis (Acute) Dyspnea (Acute) Hyperkalemia, diminished renal excretion (Acute) Open left ankle fracture (Acute) Pain of left lower leg (Acute) Pulmonary HTN (Acute) Sleep apnea (Acute) Other Procedures: External fixation left ankle Condition: Guarded - Instructions Referrals: Keyon Hudson MD [Primary Care Provider] - Disposition: RESIDENTIAL FACILITY - Home Medications Comprehensive Discharge Medication List: Ambulatory Orders Oxycodone HCl/Acetaminophen [Percocet 5-325 mg Tablet] 2 combo PO HS PRN Furosemide [Lasix -] 80 mg PO BID@0600,1800 #0 tablet 12/14/11 Glipizide [Glipizide Xl] 10 mg PO BID 02/27/13 Insulin Glargine,Hum.rec.anlog [Lantus Solostar PEN -] 80 unit SQ DAILY Levothyroxine [Synthroid -] 100 mcg PO DAILY 01/26/14 Rivaroxaban [Xarelto -] 20 mg PO DAILY 10/30/14 Atorvastatin Ca [Lipitor] 80 mg PO HS 09/05/15 Lisinopril 10 mg PO DAILY 09/05/15 Atenolol 100 mg PO BID 07/24/16 Mupirocin Cream [Bactroban 2% Cream -] 1 applic TP DAILY #1 tube 11/20/16 Collagenase Clostridium Hist. [Santyl] 1 applic TP DAILY #90 oint...g. 06/14/17 Liraglutide [Victoza -] 1.8 mg SQ DAILY@0700 07/11/17
--- NOTE | 2017-07-26 08:46 | PN ---
Progress Note (short form) - Note Progress Note: Ortho Pt seen and examined s/p left ankle ex fix Selected Entries 07/25/17 07/26/17 22:00 06:00 Temperature 98 F Pulse Rate 80 Respiratory 20 Rate Blood Pressure 138/72 Laboratory Tests 07/26/17 07:26 WBC 10.1 H Hgb 8.8 L Hct 26.9 L Plt Count 195 dressing c/d/i, no drainage a/p NWB elevation pain control d/c planning
--- NOTE | 2017-07-26 08:57 | PN ---
Progress Note, Physician Chief Complaint: notes reviewed Ortho cleared for d/c renal fxn improved. - Current Medication List Current Medications: Active Medications Acetaminophen (Tylenol -) 650 mg PO Q8H PRN PRN Reason: FEVER Last Admin: 07/20/17 16:18 Dose: 650 mg Acetaminophen (Tylenol -) 650 mg PO Q6H PRN PRN Reason: PAIN LEVEL 6-10 Last Admin: 07/25/17 00:16 Dose: 650 mg Albuterol/Ipratropium (Duoneb -) 1 amp NEB Q4H PRN PRN Reason: SHORTNESS OF BREATH Last Admin: 07/26/17 07:38 Dose: 1 amp Aspirin (Asa -) 81 mg PO DAILY [facility] Last Admin: 07/25/17 09:36 Dose: 81 mg Atenolol (Tenormin -) 100 mg PO BID [facility] Last Admin: 07/25/17 21:48 Dose: 100 mg Atorvastatin Calcium (Lipitor -) 80 mg PO HS [facility] Last Admin: 07/25/17 21:46 Dose: 80 mg Bacitracin (Bacitracin -) 1 applic TP DAILY [facility] Last Admin: 07/25/17 09:38 Dose: Not Given Colchicine (Colcrys -) 0.6 mg PO DAILY [facility] Last Admin: 07/25/17 09:35 Dose: 0.6 mg Collagenase (Santyl -) 1 applic TP DAILY [facility] Last Admin: 07/25/17 09:38 Dose: 1 applic Docusate Sodium (Colace -) 100 mg PO Q8H PRN PRN Reason: CONSTIPATION Febuxostat (Uloric -) 40 mg PO DAILY [facility] Last Admin: 07/25/17 09:37 Dose: 40 mg Furosemide (Lasix Injection -) 80 mg IVPUSH DAILY [facility] Last Admin: 07/25/17 09:37 Dose: 80 mg Glipizide (Glucotrol Xl -) 10 mg PO BID [facility] Last Admin: 07/25/17 21:46 Dose: 10 mg Vancomycin HCl 1,000 mg/ (Dextrose) 250 mls @ 200 mls/hr IVPB Q24H [facility]IL PRN Reason: Protocol Last Admin: 07/25/17 14:38 Dose: 200 mls/hr Ceftazidime 1 gm/ Dextrose 50 mls @ 100 mls/hr IVPB Q8H-IV NEIL Last Admin: 07/26/17 01:42 Dose: 100 mls/hr Heparin Sodium (Porcine) 25, (000 unit/ Sodium Chloride) 500 mls @ 22 mls/hr IV TITR NEIL; 1,100 UNIT/HR PRN Reason: Protocol Last Admin: 07/25/17 16:37 Dose: 2,400 unit/hr, 48 mls/hr Insulin Aspart (Novolog Vial Sliding Scale -) [address] [facility] PRN Reason: Protocol Last Admin: 07/26/17 06:17 Dose: Not Given Insulin Detemir (Levemir Vial) 80 units SQ DAILY@0700 [facility] Last Admin: 07/26/17 06:30 Dose: 80 units Levothyroxine Sodium (Synthroid -) 100 mcg PO DAILY@0700 [facility] Last Admin: 07/26/17 06:30 Dose: 100 mcg Liraglutide (Victoza -) 1.8 mg SQ DAILY@0700 [facility] Last Admin: 07/26/17 06:30 Dose: 1.8 mg Oxycodone HCl (Roxicodone -) 10 mg PO Q6H PRN PRN Reason: PAIN LEVEL 6-10 Last Admin: 07/24/17 20:37 Dose: 10 mg Oxycodone HCl (Roxicodone -) 10 mg PO Q4H PRN PRN Reason: MODERATE PAIN Last Admin: 07/26/17 06:33 Dose: 10 mg Oxycodone HCl (Roxicodone -) 10 mg PO [facility] Last Admin: 07/25/17 21:45 Dose: 10 mg Rivaroxaban (Xarelto -) 15 mg PO DAILY@1800 [facility] - Objective Vital Signs: Vital Signs Temperature 98 F 07/26/17 06:00 Pulse Rate 80 07/26/17 06:00 Respiratory Rate 68 H 07/26/17 06:00 Blood Pressure 138/72 07/26/17 06:00 O2 Sat by Pulse Oximetry (%) 96 07/25/17 21:00 Constitutional: Yes: Calm Cardiovascular: Yes: Pulse Irregular Respiratory: Yes: CTA Bilaterally Gastrointestinal: Yes: Soft, Abdomen, Obese Neurological: Yes: Alert, Oriented Labs: CBC, BMP 07/26/17 07:26 07/26/17 07:26 INR, PTT INR 1.32 (0.82-1.09) H 07/20/17 06:30 Laboratory Tests 07/26/17 07/26/17 07/26/17 07:26 07:26 07:26 WBC 10.1 H Hgb 8.8 L Plt Count 195 PTT (Actin FS) 69.1 H Sodium 142 Potassium 4.3 BUN 64 H Creatinine 1.9 H Creat Clearance w eGFR 36.10 Assessment/Plan IMP: Mechanical fall resulting in spontaneous open fracture left ankle requiring emergent operative intervention, ext. fixation ARF, acute on chronic, now improved. RLE cellulitis Acute Gout Morbid obesity PHTN Chronic AF CAD s/p PCI Acute on chronic diastolic CHF REC: 1. As renal fx improved, to resume Xarelto 2. Dispo plan as outlined by PMD.
[2017-07-26] MEDS: FUROSEMIDE 40 MG/4 ML INJECTABLE VIAL IVPUSH SCH (10:44)
[2017-07-26] MEDS: glipiZIDE-XL 10 MG TAB.ER.24 (FP) PO SCH ×2 (10:45→21:36)
[2017-07-26] MEDS: ASPIRIN 81 MG CHEWABLE TABLETS PO SCH (10:46)
[2017-07-26] MEDS: ATENOLOL 50 MG TABLET (FP) PO SCH ×2 (10:46→21:33)
[2017-07-26] MEDS: COLCHICINE 0.6 MG TABLET (FP) PO SCH (10:46)
[2017-07-26] MEDS: FEBUXOSTAT 40 MG TAB PO SCH (10:47)
[2017-07-26] MEDS: COLLAGENASE CLOSTRIDIUM HIST. 30 GRAMS TUBE TP SCH (10:52)
[2017-07-26] MEDS: BACITRACIN 15 GM TUBE TOPICAL OINTMENT TP SCH (10:52)
[2017-07-26] MEDS: HEPARIN - 25,000 UNIT in SODIUM CHLORIDE 495 ML IV SCH (13:00)
--- NOTE | 2017-07-26 13:23 | PN ---
Progress Note, Physician History of Present Illness: pulmonary alert,c/o mild sob,-cp,-cough - Current Medication List Current Medications: Active Medications Acetaminophen (Tylenol -) 650 mg PO Q8H PRN PRN Reason: FEVER Last Admin: 07/20/17 16:18 Dose: 650 mg Acetaminophen (Tylenol -) 650 mg PO Q6H PRN PRN Reason: PAIN LEVEL 6-10 Last Admin: 07/25/17 00:16 Dose: 650 mg Albuterol/Ipratropium (Duoneb -) 1 amp NEB Q4H PRN PRN Reason: SHORTNESS OF BREATH Last Admin: 07/26/17 07:38 Dose: 1 amp Aspirin (Asa -) 81 mg PO DAILY [facility] Last Admin: 07/26/17 10:46 Dose: 81 mg Atenolol (Tenormin -) 100 mg PO BID [facility] Last Admin: 07/26/17 10:46 Dose: 100 mg Atorvastatin Calcium (Lipitor -) 80 mg PO HS [facility] Last Admin: 07/25/17 21:46 Dose: 80 mg Bacitracin (Bacitracin -) 1 applic TP DAILY [facility] Last Admin: 07/26/17 10:52 Dose: Not Given Colchicine (Colcrys -) 0.6 mg PO DAILY [facility] Last Admin: 07/26/17 10:46 Dose: 0.6 mg Collagenase (Santyl -) 1 applic TP DAILY [facility] Last Admin: 07/26/17 10:52 Dose: 1 applic Docusate Sodium (Colace -) 100 mg PO Q8H PRN PRN Reason: CONSTIPATION Febuxostat (Uloric -) 40 mg PO DAILY [facility] Last Admin: 07/26/17 10:47 Dose: 40 mg Furosemide (Lasix Injection -) 80 mg IVPUSH DAILY [facility] Last Admin: 07/26/17 10:44 Dose: 80 mg Glipizide (Glucotrol Xl -) 10 mg PO BID [facility] Last Admin: 07/26/17 10:45 Dose: 10 mg Vancomycin HCl 1,000 mg/ (Dextrose) 250 mls @ 200 mls/hr IVPB Q24H NEIL PRN Reason: Protocol Last Admin: 07/25/17 14:38 Dose: 200 mls/hr Ceftazidime 1 gm/ Dextrose 50 mls @ 100 mls/hr IVPB Q8H-IV NEIL Last Admin: 07/26/17 10:46 Dose: 100 mls/hr Heparin Sodium (Porcine) 25, (000 unit/ Sodium Chloride) 500 mls @ 22 mls/hr IV TITR NEIL; 1,100 UNIT/HR PRN Reason: Protocol Last Admin: 07/25/17 16:37 Dose: 2,400 unit/hr, 48 mls/hr Insulin Aspart (Novolog Vial Sliding Scale -) 1 vial SQ ACHS [facility] PRN Reason: Protocol Last Admin: 07/26/17 11:30 Dose: Not Given Insulin Detemir (Levemir Vial) 80 units SQ DAILY@0700 [facility] Last Admin: 07/26/17 06:30 Dose: 80 units Levothyroxine Sodium (Synthroid -) 100 mcg PO DAILY@0700 [facility] Last Admin: 07/26/17 06:30 Dose: 100 mcg Liraglutide (Victoza -) 1.8 mg SQ DAILY@0700 [facility] Last Admin: 07/26/17 06:30 Dose: 1.8 mg Oxycodone HCl (Roxicodone -) 10 mg PO Q4H PRN PRN Reason: MODERATE PAIN Last Admin: 07/26/17 10:47 Dose: 10 mg Oxycodone HCl (Roxicodone -) 10 mg PO HS [facility] Last Admin: 07/25/17 21:45 Dose: 10 mg Rivaroxaban (Xarelto -) 15 mg PO DAILY@1800 [facility] - Objective Vital Signs: Vital Signs Temperature 98.2 F 07/26/17 08:00 Pulse Rate 84 07/26/17 08:00 Respiratory Rate 18 07/26/17 08:00 Blood Pressure 112/68 07/26/17 08:00 O2 Sat by Pulse Oximetry (%) 96 07/26/17 09:00 Constitutional: Yes: Calm, Obese Eyes: Yes: WNL HENT: Yes: WNL Neck: Yes: WNL Cardiovascular: Yes: Pulse Irregular, S1, S2 Respiratory: Yes: Diminished Gastrointestinal: Yes: Normal Bowel Sounds, Soft Extremities: Yes: WNL Edema: Yes (lle cast) Labs: CBC, BMP 07/26/17 07:26 07/26/17 07:26 INR, PTT INR 1.32 (0.82-1.09) H 07/20/17 06:30 Problem List - Problems (1) Accident due to mechanical fall without injury Code(s): W19.XXXA - UNSPECIFIED FALL, INITIAL ENCOUNTER (2) Atrial fibrillation Code(s): I48.91 - UNSPECIFIED ATRIAL FIBRILLATION Qualifiers: Atrial fibrillation type: chronic Qualified Code(s): I48.2 - Chronic atrial fibrillation (3) CAD (coronary artery disease) Code(s): I25.10 - ATHSCL HEART DISEASE OF [place] CORONARY ARTERY W/O ANG PCTRS (4) CHF (congestive heart failure) Code(s): I50.9 - HEART FAILURE, UNSPECIFIED (5) DVT (deep venous thrombosis) Code(s): I82.409 - ACUTE EMBOLISM AND THOMBOS UNSP DEEP VN UNSP LOWER EXTREMITY Qualifiers: DVT location: lower extremity Affected thrombotic vein of extremity: femoral Chronicity: chronic Laterality: right Qualified Code(s): I82.511 - Chronic embolism and thrombosis of right femoral vein (6) Obesities, morbid Code(s): E66.01 - MORBID (SEVERE) OBESITY DUE TO EXCESS CALORIES (7) Pulmonary embolism Code(s): I26.99 - OTHER PULMONARY EMBOLISM WITHOUT ACUTE COR PULMONALE (8) Venous (peripheral) insufficiency Code(s): I87.2 - VENOUS INSUFFICIENCY (CHRONIC) (PERIPHERAL) (9) Sleep apnea Code(s): G47.30 - SLEEP APNEA, UNSPECIFIED (10) COPD (chronic obstructive pulmonary disease) Code(s): J44.9 - CHRONIC OBSTRUCTIVE PULMONARY DISEASE, UNSPECIFIED (11) Pulmonary HTN Code(s): I27.20 - PULMONARY HYPERTENSION, UNSPECIFIED (12) Dyspnea Code(s): R06.00 - DYSPNEA, UNSPECIFIED (13) Cellulitis Code(s): L03.90 - CELLULITIS, UNSPECIFIED Assessment/Plan IMP CELLULITIS S/P MECHANICAL FALL CHF ASHD S/P PCI OSAS AFIB H/O DVT/PE PULMONARY HTN MORBID OBESITY CKD PLAN LASIX O2 ABX PER ID INHALED BRONCHODILATORS BIPAP AT NIGHT AC MONITOR LYTES,RENAL FUNCTION DR MACHADO Problem List - Problems (1) Accident due to mechanical fall without injury Code(s): W19.XXXA - UNSPECIFIED FALL, INITIAL ENCOUNTER (2) Atrial fibrillation Code(s): I48.91 - UNSPECIFIED ATRIAL FIBRILLATION Qualifiers: Atrial fibrillation type: chronic Qualified Code(s): I48.2 - Chronic atrial fibrillation (3) CAD (coronary artery disease) Code(s): I25.10 - ATHSCL HEART DISEASE OF [place] CORONARY ARTERY W/O ANG PCTRS (4) CHF (congestive heart failure) Code(s): I50.9 - HEART FAILURE, UNSPECIFIED (5) DVT (deep venous thrombosis) Code(s): I82.409 - ACUTE EMBOLISM AND THOMBOS UNSP DEEP VN UNSP LOWER EXTREMITY Qualifiers: DVT location: lower extremity Affected thrombotic vein of extremity: femoral Chronicity: chronic Laterality: right Qualified Code(s): I82.511 - Chronic embolism and thrombosis of right femoral vein (6) Obesities, morbid Code(s): E66.01 - MORBID (SEVERE) OBESITY DUE TO EXCESS CALORIES (7) Pulmonary embolism Code(s): I26.99 - OTHER PULMONARY EMBOLISM WITHOUT ACUTE COR PULMONALE (8) Venous (peripheral) insufficiency Code(s): I87.2 - VENOUS INSUFFICIENCY (CHRONIC) (PERIPHERAL) (9) Sleep apnea Code(s): G47.30 - SLEEP APNEA, UNSPECIFIED (10) COPD (chronic obstructive pulmonary disease) Code(s): J44.9 - CHRONIC OBSTRUCTIVE PULMONARY DISEASE, UNSPECIFIED (11) Pulmonary HTN Code(s): I27.20 - PULMONARY HYPERTENSION, UNSPECIFIED (12) Dyspnea Code(s): R06.00 - DYSPNEA, UNSPECIFIED (13) Cellulitis Code(s): L03.90 - CELLULITIS, UNSPECIFIED
--- NOTE | 2017-07-26 14:10 | PN ---
Progress Note, Physician History of Present Illness: Pt seen and examined at bedside. He is awake and alert. He denies dysuria. - Current Medication List Current Medications: Active Medications Acetaminophen (Tylenol -) 650 mg PO Q8H PRN PRN Reason: FEVER Last Admin: 07/20/17 16:18 Dose: 650 mg Acetaminophen (Tylenol -) 650 mg PO Q6H PRN PRN Reason: PAIN LEVEL 6-10 Last Admin: 07/25/17 00:16 Dose: 650 mg Albuterol/Ipratropium (Duoneb -) 1 amp NEB Q4H PRN PRN Reason: SHORTNESS OF BREATH Last Admin: 07/26/17 13:30 Dose: 1 amp Aspirin (Asa -) 81 mg PO DAILY [facility] Last Admin: 07/26/17 10:46 Dose: 81 mg Atenolol (Tenormin -) 100 mg PO BID [facility] Last Admin: 07/26/17 10:46 Dose: 100 mg Atorvastatin Calcium (Lipitor -) 80 mg PO HS [facility] Last Admin: 07/25/17 21:46 Dose: 80 mg Bacitracin (Bacitracin -) 1 applic TP DAILY [facility] Last Admin: 07/26/17 10:52 Dose: Not Given Colchicine (Colcrys -) 0.6 mg PO DAILY [facility] Last Admin: 07/26/17 10:46 Dose: 0.6 mg Collagenase (Santyl -) 1 applic TP DAILY [facility] Last Admin: 07/26/17 10:52 Dose: 1 applic Docusate Sodium (Colace -) 100 mg PO Q8H PRN PRN Reason: CONSTIPATION Febuxostat (Uloric -) 40 mg PO DAILY [facility] Last Admin: 07/26/17 10:47 Dose: 40 mg Furosemide (Lasix Injection -) 80 mg IVPUSH DAILY [facility] Last Admin: 07/26/17 10:44 Dose: 80 mg Glipizide (Glucotrol Xl -) 10 mg PO BID [facility] Last Admin: 07/26/17 10:45 Dose: 10 mg Vancomycin HCl 1,000 mg/ (Dextrose) 250 mls @ 200 mls/hr IVPB Q24H NEIL PRN Reason: Protocol Last Admin: 07/25/17 14:38 Dose: 200 mls/hr Ceftazidime 1 gm/ Dextrose 50 mls @ 100 mls/hr IVPB Q8H-IV NEIL Last Admin: 07/26/17 10:46 Dose: 100 mls/hr Heparin Sodium (Porcine) 25, (000 unit/ Sodium Chloride) 500 mls @ 22 mls/hr IV TITR NEIL; 1,100 UNIT/HR PRN Reason: Protocol Last Admin: 07/25/17 16:37 Dose: 2,400 unit/hr, 48 mls/hr Insulin Aspart (Novolog Vial Sliding Scale -) 1 vial SQ ACHS [facility] PRN Reason: Protocol Last Admin: 07/26/17 11:30 Dose: Not Given Insulin Detemir (Levemir Vial) 80 units SQ DAILY@0700 [facility] Last Admin: 07/26/17 06:30 Dose: 80 units Levothyroxine Sodium (Synthroid -) 100 mcg PO DAILY@0700 [facility] Last Admin: 07/26/17 06:30 Dose: 100 mcg Liraglutide (Victoza -) 1.8 mg SQ DAILY@0700 [facility] Last Admin: 07/26/17 06:30 Dose: 1.8 mg Oxycodone HCl (Roxicodone -) 10 mg PO Q4H PRN PRN Reason: MODERATE PAIN Last Admin: 07/26/17 10:47 Dose: 10 mg Oxycodone HCl (Roxicodone -) 10 mg PO HS [facility] Last Admin: 07/25/17 21:45 Dose: 10 mg Rivaroxaban (Xarelto -) 15 mg PO DAILY@1800 [facility] - Objective Vital Signs: Vital Signs Temperature 98.2 F 07/26/17 08:00 Pulse Rate 84 07/26/17 08:00 Respiratory Rate 18 07/26/17 08:00 Blood Pressure 112/68 07/26/17 08:00 O2 Sat by Pulse Oximetry (%) 96 07/26/17 09:00 Constitutional: Yes: Calm Eyes: Yes: Conjunctiva Clear Cardiovascular: Yes: S1, S2 Respiratory: Yes: CTA Bilaterally Gastrointestinal: Yes: Soft, Abdomen, Obese Genitourinary: Yes: WNL Musculoskeletal: Yes: Other (dressing in place) Edema: Yes Integumentary: Yes: Erythema, Venous Stasis Changes Neurological: Yes: Oriented Psychiatric: Yes: Oriented Labs: CBC, BMP 07/26/17 07:26 07/26/17 07:26 INR, PTT INR 1.32 (0.82-1.09) H 07/20/17 06:30 Problem List - Problems (1) CKD (chronic kidney disease) Code(s): N18.9 - CHRONIC KIDNEY DISEASE, UNSPECIFIED (2) Accident due to mechanical fall without injury Code(s): W19.XXXA - UNSPECIFIED FALL, INITIAL ENCOUNTER (3) Acute renal failure (ARF) Code(s): N17.9 - ACUTE KIDNEY FAILURE, UNSPECIFIED Assessment/Plan Current Medications Generic Name Dose Route Start Last Admin Trade Name Freq PRN Reason Stop Dose Admin Acetaminophen 650 mg 07/12/17 08:03 07/20/17 16:18 Tylenol - PO 650 mg Q8H PRN Administration FEVER Acetaminophen 650 mg 07/23/17 11:46 07/25/17 00:16 Tylenol - PO 650 mg Q6H PRN Administration PAIN LEVEL 6-10 Albuterol/Ipratropium 1 amp 07/21/17 13:45 07/26/17 13:30 Duoneb - NEB 1 amp Q4H PRN Administration SHORTNESS OF BREATH Aspirin 81 mg 07/20/17 10:00 07/26/17 10:46 Asa - PO 81 mg DAILY [facility]IL Administration Atenolol 100 mg 07/12/17 10:00 07/26/17 10:46 Tenormin - PO 100 mg BID NEIL Administration Atorvastatin Calcium 80 mg 07/12/17 22:00 07/25/17 21:46 Lipitor - PO 80 mg HS NEIL Administration Bacitracin 1 applic 07/14/17 17:15 07/26/17 10:52 Bacitracin - TP Not Given DAILY NEIL Colchicine 0.6 mg 07/19/17 10:00 07/26/17 10:46 Colcrys - PO 0.6 mg DAILY [facility]IL Administration Collagenase 1 applic 07/12/17 10:00 07/26/17 10:52 Santyl - TP 1 applic DAILY [facility] Administration Docusate Sodium 100 mg 07/25/17 18:46 Colace - PO Q8H PRN CONSTIPATION Febuxostat 40 mg 07/21/17 10:00 07/26/17 10:47 Uloric - PO 40 mg DAILY [facility] Administration Furosemide 80 mg 07/23/17 10:00 07/26/17 10:44 Lasix Injection - IVPUSH 80 mg DAILY [facility] Administration Glipizide 10 mg 07/12/17 10:00 07/26/17 10:45 Glucotrol Xl - PO 10 mg BID NEIL Administration Vancomycin HCl 1,000 mg/ 250 mls @ 200 mls/hr 07/17/17 15:00 07/25/17 14:38 Dextrose IVPB 200 mls/hr Q24H NEIL Administration Protocol Ceftazidime 1 gm/ Dextrose 50 mls @ 100 mls/hr 07/19/17 13:45 07/26/17 10:46 IVPB 100 mls/hr Q8H-IV NEIL Administration Heparin Sodium (Porcine) 25, 500 mls @ 22 mls/hr 07/25/17 12:00 07/25/17 16: 37 000 unit/ Sodium Chloride IV 2,400 unit/hr TITR NEIL 48 mls/hr Protocol Administration 1,100 UNIT/HR Insulin Aspart 1 vial 07/14/17 11:15 07/26/17 11:30 Novolog Vial Sliding Scale - SQ Not Given ACHS [facility] Protocol Insulin Detemir 80 units 07/22/17 07:00 07/26/17 06:30 Levemir Vial SQ 80 units DAILY@0700 [facility] Administration Levothyroxine Sodium 100 mcg 07/12/17 07:00 07/26/17 06:30 Synthroid - PO 100 mcg DAILY@0700 [facility] Administration Liraglutide 1.8 mg 07/13/17 07:00 07/26/17 06:30 Victoza - SQ 1.8 mg DAILY@0700 [facility] Administration Oxycodone HCl 10 mg 07/23/17 14:20 07/26/17 10:47 Roxicodone - PO 10 mg Q4H PRN Administration MODERATE PAIN Oxycodone HCl 10 mg 07/25/17 00:15 07/25/17 21:45 Roxicodone - PO 10 mg HS NEIL Administration Rivaroxaban 15 mg 07/26/17 18:00 Xarelto - PO DAILY@1800 [facility] Impression 1. CKD 2. KRUNAL 3. volume overload 4. obesity 5. CAD 6. cellulitis 7. s/p fall 8. a-fib 9. DM 10. hypothyroidism 11. HLD 12. CHF 13. s/p leg fracture Plan - renal function stabilizing - resume lasix 80 mg po q 12 after discharge - cont wound care - abd per ID - will need follow up with ortho - volume status slowly improving - will follow Dr Quiroz
--- NOTE | 2017-07-26 14:58 | PN ---
Progress Note, Physician History of Present Illness: patient stable doing well no complaints legs improving ext fixators in place - Current Medication List Current Medications: Active Medications Acetaminophen (Tylenol -) 650 mg PO Q8H PRN PRN Reason: FEVER Last Admin: 07/20/17 16:18 Dose: 650 mg Acetaminophen (Tylenol -) 650 mg PO Q6H PRN PRN Reason: PAIN LEVEL 6-10 Last Admin: 07/25/17 00:16 Dose: 650 mg Albuterol/Ipratropium (Duoneb -) 1 amp NEB Q4H PRN PRN Reason: SHORTNESS OF BREATH Last Admin: 07/26/17 13:30 Dose: 1 amp Aspirin (Asa -) 81 mg PO DAILY [facility] Last Admin: 07/26/17 10:46 Dose: 81 mg Atenolol (Tenormin -) 100 mg PO BID [facility] Last Admin: 07/26/17 10:46 Dose: 100 mg Atorvastatin Calcium (Lipitor -) 80 mg PO HS [facility] Last Admin: 07/25/17 21:46 Dose: 80 mg Bacitracin (Bacitracin -) 1 applic TP DAILY [facility] Last Admin: 07/26/17 10:52 Dose: Not Given Colchicine (Colcrys -) 0.6 mg PO DAILY [facility] Last Admin: 07/26/17 10:46 Dose: 0.6 mg Collagenase (Santyl -) 1 applic TP DAILY [facility] Last Admin: 07/26/17 10:52 Dose: 1 applic Docusate Sodium (Colace -) 100 mg PO Q8H PRN PRN Reason: CONSTIPATION Febuxostat (Uloric -) 40 mg PO DAILY [facility] Last Admin: 07/26/17 10:47 Dose: 40 mg Furosemide (Lasix Injection -) 80 mg IVPUSH DAILY [facility] Last Admin: 07/26/17 10:44 Dose: 80 mg Glipizide (Glucotrol Xl -) 10 mg PO BID [facility] Last Admin: 07/26/17 10:45 Dose: 10 mg Vancomycin HCl 1,000 mg/ (Dextrose) 250 mls @ 200 mls/hr IVPB Q24H NEIL PRN Reason: Protocol Last Admin: 07/25/17 14:38 Dose: 200 mls/hr Ceftazidime 1 gm/ Dextrose 50 mls @ 100 mls/hr IVPB Q8H-IV NEIL Last Admin: 07/26/17 10:46 Dose: 100 mls/hr Heparin Sodium (Porcine) 25, (000 unit/ Sodium Chloride) 500 mls @ 22 mls/hr IV TITR NEIL; 1,100 UNIT/HR PRN Reason: Protocol Last Admin: 07/26/17 13:00 Dose: Not Given Insulin Aspart (Novolog Vial Sliding Scale -) [address] [facility] PRN Reason: Protocol Last Admin: 07/26/17 11:30 Dose: Not Given Insulin Detemir (Levemir Vial) 80 units SQ DAILY@0700 [facility] Last Admin: 07/26/17 06:30 Dose: 80 units Levothyroxine Sodium (Synthroid -) 100 mcg PO DAILY@0700 [facility] Last Admin: 07/26/17 06:30 Dose: 100 mcg Liraglutide (Victoza -) 1.8 mg SQ DAILY@0700 [facility] Last Admin: 07/26/17 06:30 Dose: 1.8 mg Oxycodone HCl (Roxicodone -) 10 mg PO HS [facility] Last Admin: 07/25/17 21:45 Dose: 10 mg Rivaroxaban (Xarelto -) 15 mg PO DAILY@1800 [facility] - Objective Vital Signs: Vital Signs Temperature 98.5 F 07/26/17 14:41 Pulse Rate 87 07/26/17 14:41 Respiratory Rate 20 07/26/17 14:41 Blood Pressure 109/50 07/26/17 14:41 O2 Sat by Pulse Oximetry (%) 96 07/26/17 09:00 Constitutional: Yes: No Distress, Calm, Obese (severe) Cardiovascular: Yes: Regular Rate and Rhythm Respiratory: Yes: Regular, CTA Bilaterally Gastrointestinal: Yes: Normal Bowel Sounds, Soft Musculoskeletal: Yes: Other Extremities: Yes: Other (left ankle fixators external wound stable) Edema: LLE: 2+, RLE: 2+ Wound/Incision: Yes: Clean/Dry Neurological: Yes: Alert, Oriented Psychiatric: Yes: Alert, Oriented Labs: CBC, BMP 07/26/17 07:26 07/26/17 07:26 INR, PTT INR 1.32 (0.82-1.09) H 07/20/17 06:30 Assessment/Plan Problem List - Problems (1) Accident due to mechanical fall without injury Code(s): W19.XXXA - UNSPECIFIED FALL, INITIAL ENCOUNTER (2) Atrial fibrillation Code(s): I48.91 - UNSPECIFIED ATRIAL FIBRILLATION Qualifiers: Atrial fibrillation type: chronic Qualified Code(s): I48.2 - Chronic atrial fibrillation (3) CAD (coronary artery disease) Code(s): I25.10 - ATHSCL HEART DISEASE OF [place] CORONARY ARTERY W/O ANG PCTRS (4) CHF (congestive heart failure) Code(s): I50.9 - HEART FAILURE, UNSPECIFIED (5) DVT (deep venous thrombosis) Code(s): I82.409 - ACUTE EMBOLISM AND THOMBOS UNSP DEEP VN UNSP LOWER EXTREMITY Qualifiers: DVT location: lower extremity Affected thrombotic vein of extremity: femoral Chronicity: chronic Laterality: right Qualified Code(s): I82.511 - Chronic embolism and thrombosis of right femoral vein (6) Obesities, morbid Code(s): E66.01 - MORBID (SEVERE) OBESITY DUE TO EXCESS CALORIES (7) Pulmonary embolism Code(s): I26.99 - OTHER PULMONARY EMBOLISM WITHOUT ACUTE COR PULMONALE (8) Venous (peripheral) insufficiency Code(s): I87.2 - VENOUS INSUFFICIENCY (CHRONIC) (PERIPHERAL) (9) Sleep apnea Code(s): G47.30 - SLEEP APNEA, UNSPECIFIED (10) COPD (chronic obstructive pulmonary disease) Code(s): J44.9 - CHRONIC OBSTRUCTIVE PULMONARY DISEASE, UNSPECIFIED (11) Pulmonary HTN Code(s): I27.20 - PULMONARY HYPERTENSION, UNSPECIFIED (12) Dyspnea Code(s): R06.00 - DYSPNEA, UNSPECIFIED (13) Cellulitis Code(s): L03.90 - CELLULITIS, UNSPECIFIED 14) wound infection 15 leukocytosis 16 compound fracture left ankle plan continue abx vanco trough noted would advise continuing the abx for another 2 weeks follow vanco levels continue current mgmt
[2017-07-26] MEDS: POLYETHYLENE GLYCOL 3350 119 GM BTL PO SCH ×2 (15:23→21:49)
[2017-07-26] MEDS: VANCOMYCIN 1,000 MG in DEXTROSE 5%-WATER - 250 ML IVPB SCH (17:57)
[2017-07-26] MEDS: RIVAROXABAN 15 MG TABLET PO SCH (17:57)
[2017-07-26] MEDS ORDERED: INSULIN (NOVOLOG) ASPART 100 UNITS/ML 10ML VIAL ONE (21:01)
[2017-07-26] MEDS: ATORVASTATIN CA 80 MG TABLET (FP) PO SCH (21:32)
[2017-07-27] MEDS: CEFTAZIDIME PENTAHYDRATE 1 GM in DEXTROSE 5%-WATER - 50 ML IVPB SCH ×3 (01:20→17:37)
[2017-07-27] MEDS: oxyCODONE HCL 5 MG TABLET PO PRN ×5 (01:25→18:27)
[2017-07-27] MEDS: LEVOTHYROXINE NA 100 MCG TABLET (FP) PO SCH (06:38)
[2017-07-27] MEDS: INSULIN (LEVEMIR) 100 UNITS/ML UNITS SQ SCH (06:38)
[2017-07-27] MEDS: INSULIN SLIDING SCALE (NOVOLOG) 1 VIAL SQ SCH ×4 (06:38→21:35)
[2017-07-27] MEDS: LIRAGLUTIDE 0.6 MG/0.1 ML PEN.INJCTR SQ SCH (06:38)
[2017-07-27] MEDS ORDERED: PT OWN MED DRAWER 7, Y5N ONE ×3 (06:47→17:36)
[2017-07-27] MEDS: ASPIRIN 81 MG CHEWABLE TABLETS PO SCH (09:32)
[2017-07-27] MEDS: COLCHICINE 0.6 MG TABLET (FP) PO SCH (09:33)
[2017-07-27] MEDS: glipiZIDE-XL 10 MG TAB.ER.24 (FP) PO SCH ×2 (09:34→21:33)
[2017-07-27] MEDS: FEBUXOSTAT 40 MG TAB PO SCH (09:34)
[2017-07-27] MEDS: ATENOLOL 50 MG TABLET (FP) PO SCH ×2 (09:35→21:33)
[2017-07-27] MEDS: FUROSEMIDE 40 MG/4 ML INJECTABLE VIAL IVPUSH SCH (09:36)
[2017-07-27] MEDS: BACITRACIN 15 GM TUBE TOPICAL OINTMENT TP SCH (09:40)
[2017-07-27] MEDS: POLYETHYLENE GLYCOL 3350 119 GM BTL PO SCH ×2 (09:40→21:36)
--- NOTE | 2017-07-27 10:34 | PN ---
Progress Note (short form) - Note Progress Note: PULMONARY Denies shortness of breath, cough or wheezing. Using his home BiPAP at night. Last Vital Signs Temp Pulse Resp BP Pulse Ox 98.3 F 76 18 114/67 96 07/27/17 09:47 07/27/17 09:47 07/27/17 09:47 07/27/17 09:47 07/26/17 20:04 Gen: NAD at rest Heart: RRR Lung: distant breath sounds Abd: soft, nontender Ext: chronic changes, dressings without drainage CBC, BMP 07/26/17 07:26 07/26/17 07:26 Active Medications Acetaminophen (Tylenol -) 650 mg PO Q8H PRN PRN Reason: FEVER Last Admin: 07/20/17 16:18 Dose: 650 mg Acetaminophen (Tylenol -) 650 mg PO Q6H PRN PRN Reason: PAIN LEVEL 6-10 Last Admin: 07/25/17 00:16 Dose: 650 mg Albuterol/Ipratropium (Duoneb -) 1 amp NEB Q4H PRN PRN Reason: SHORTNESS OF BREATH Last Admin: 07/26/17 21:31 Dose: 1 amp Aspirin (Asa -) 81 mg PO DAILY [facility] Last Admin: 07/27/17 09:32 Dose: 81 mg Atenolol (Tenormin -) 100 mg PO BID [facility] 234 [facility]S [facility] Last Admin: 07/27/17 09:35 Dose: 100 mg Atorvastatin Calcium (Lipitor -) 80 mg PO HS [facility] 234 [facility]S AT [facility] Last Admin: 07/26/17 21:32 Dose: 80 mg Bacitracin (Bacitracin -) 1 applic TP DAILY [facility] 234 [facility]S [facility] Last Admin: 07/27/17 09:40 Dose: Not Given Colchicine (Colcrys -) 0.6 mg PO DAILY [facility] 234 [facility]S [facility] Last Admin: 07/27/17 09:33 Dose: 0.6 mg Collagenase (Santyl -) 1 applic TP DAILY [facility] 234 [facility]EDS [facility] Last Admin: 07/26/17 10:52 Dose: 1 applic Docusate Sodium (Colace -) 100 mg PO Q8H PRN PRN Reason: CONSTIPATION Febuxostat (Uloric -) 40 mg PO DAILY [facility] 234 [facility]S [facility] Last Admin: 07/27/17 09:34 Dose: 40 mg Furosemide (Lasix Injection -) 80 mg IVPUSH DAILY [facility] 234 B[facility]S [facility] Last Admin: 07/27/17 09:36 Dose: 80 mg Glipizide (Glucotrol Xl -) 10 mg PO BID [facility] 234 [facility]S [facility] Last Admin: 07/27/17 09:34 Dose: 10 mg Vancomycin HCl 1,000 mg/ (Dextrose) 250 mls @ 200 mls/hr IVPB Q24H [facility] 234 BEDS AT [facility] PRN Reason: Protocol Last Admin: 07/26/17 17:57 Dose: 200 mls/hr Ceftazidime 1 gm/ Dextrose 50 mls @ 100 mls/hr IVPB Q8H-IV [facility] 234 BEDS AT [facility] Last Admin: 07/27/17 09:36 Dose: 100 mls/hr Insulin Aspart (Novolog Vial Sliding Scale -) 1 vial SQ ACHS [facility] 234 [facility]S [facility] PRN Reason: Protocol Last Admin: 07/27/17 06:38 Dose: Not Given Insulin Detemir (Levemir Vial) 80 units SQ DAILY@0700 [facility] 234 [facility]S [facility] Last Admin: 07/27/17 06:38 Dose: 80 units Levothyroxine Sodium (Synthroid -) 100 mcg PO DAILY@0700 [facility] 234 [facility]EDS AT [facility] Last Admin: 07/27/17 06:38 Dose: 100 mcg Liraglutide (Victoza -) 1.8 mg SQ DAILY@0700 [facility] 234 BEDS AT [facility] Last Admin: 07/27/17 06:38 Dose: 1.8 mg Oxycodone HCl (Roxicodone -) 10 mg PO Q4H PRN PRN Reason: PAIN 1-5 Last Admin: 07/27/17 09:35 Dose: 10 mg Polyethylene Glycol (Miralax (For Daily Use) -) 17 gm PO BID [facility] 234 [facility]S AT [facility] Last Admin: 07/27/17 09:40 Dose: 17 grams Rivaroxaban (Xarelto -) 15 mg PO DAILY@1800 [facility] 234 BEDS AT [facility] Last Admin: 07/26/17 17:57 Dose: 15 mg A/P Cellulitis Left Ankle Fracture Morbid Obesity ASHLEY Atrial Fibrillation CAD h/o DVT/PE CKD - antibiotics per ID - BiPAP at night 09/10 - inhaled bronchodilators - O2 to keep SpO2 >90% - continue anticoagulation - d/c planning
[2017-07-27] MEDS: COLLAGENASE CLOSTRIDIUM HIST. 30 GRAMS TUBE TP SCH (10:36)
[2017-07-27] MEDS: ALBUTEROL SO4 2.5/IPRATROPIUM 0.5 INH SOL 3 ML VIAL.NEB. NEB PRN (11:42)
--- NOTE | 2017-07-27 12:55 | PN ---
Progress Note, Physician Chief Complaint: Remains in bed, Sally at the bedside. Pain is controlled with PO Percocet. Dr Subramanian note appreciated. The ID recommends treatment with IV antibiotics for 2 more weeks. History of Present Illness: Morbid obesity. ASHLEY. Bilateral PE. Pulmonary HTN-CTEPH AND CLASS 2 PAH. CHF-mostly diastolic. ASHD. STEMI in 2016 with MICHAEL x2 placed at [place]. Chronic A.Fib-on a/c-Xarelto/ASA now. Gout. 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 Chronic DVT Right thigh, Stasis ulcers, edema. Chronic wound right Ankle/dobbs-RX at [facility]-groing multiple organisms. - Current Medication List Current Medications: Active Medications Acetaminophen (Tylenol -) 650 mg PO Q8H PRN PRN Reason: FEVER Last Admin: 07/20/17 16:18 Dose: 650 mg Acetaminophen (Tylenol -) 650 mg PO Q6H PRN PRN Reason: PAIN LEVEL 6-10 Last Admin: 07/25/17 00:16 Dose: 650 mg Albuterol/Ipratropium (Duoneb -) 1 amp NEB Q4H PRN PRN Reason: SHORTNESS OF BREATH Last Admin: 07/27/17 11:42 Dose: 1 amp Aspirin (Asa -) 81 mg PO DAILY [facility] Last Admin: 07/27/17 09:32 Dose: 81 mg Atenolol (Tenormin -) 100 mg PO BID [facility] Last Admin: 07/27/17 09:35 Dose: 100 mg Atorvastatin Calcium (Lipitor -) 80 mg PO HS [facility] Last Admin: 07/26/17 21:32 Dose: 80 mg Bacitracin (Bacitracin -) 1 applic TP DAILY [facility] Last Admin: 07/27/17 09:40 Dose: Not Given Colchicine (Colcrys -) 0.6 mg PO DAILY [facility] Last Admin: 07/27/17 09:33 Dose: 0.6 mg Collagenase (Santyl -) 1 applic TP DAILY [facility] Last Admin: 07/27/17 10:36 Dose: 1 applic Docusate Sodium (Colace -) 100 mg PO Q8H PRN PRN Reason: CONSTIPATION Febuxostat (Uloric -) 40 mg PO DAILY [facility] Last Admin: 07/27/17 09:34 Dose: 40 mg Furosemide (Lasix Injection -) 80 mg IVPUSH DAILY [facility] Last Admin: 07/27/17 09:36 Dose: 80 mg Glipizide (Glucotrol Xl -) 10 mg PO BID [facility] Last Admin: 07/27/17 09:34 Dose: 10 mg Vancomycin HCl 1,000 mg/ (Dextrose) 250 mls @ 200 mls/hr IVPB Q24H [facility] PRN Reason: Protocol Last Admin: 07/26/17 17:57 Dose: 200 mls/hr Ceftazidime 1 gm/ Dextrose 50 mls @ 100 mls/hr IVPB Q8H-IV [facility] Last Admin: 07/27/17 09:36 Dose: 100 mls/hr Insulin Aspart (Novolog Vial Sliding Scale -) 1 vial SQ ACHS [facility] PRN Reason: Protocol Last Admin: 07/27/17 11:12 Dose: Not Given Insulin Detemir (Levemir Vial) 80 units SQ DAILY@0700 [facility] Last Admin: 07/27/17 06:38 Dose: 80 units Levothyroxine Sodium (Synthroid -) 100 mcg PO DAILY@0700 [facility] Last Admin: 07/27/17 06:38 Dose: 100 mcg Liraglutide (Victoza -) 1.8 mg SQ DAILY@0700 [facility] Last Admin: 07/27/17 06:38 Dose: 1.8 mg Oxycodone HCl (Roxicodone -) 10 mg PO Q4H PRN PRN Reason: PAIN 1-5 Last Admin: 07/27/17 09:35 Dose: 10 mg Polyethylene Glycol (Miralax (For Daily Use) -) 17 gm PO BID [facility] Last Admin: 07/27/17 09:40 Dose: 17 grams Rivaroxaban (Xarelto -) 15 mg PO DAILY@1800 [facility] Last Admin: 07/26/17 17:57 Dose: 15 mg - Objective Vital Signs: Vital Signs Temperature 98.3 F 07/27/17 09:47 Pulse Rate 76 07/27/17 09:47 Respiratory Rate 18 07/27/17 09:47 Blood Pressure 114/67 07/27/17 09:47 O2 Sat by Pulse Oximetry (%) 91 L 07/27/17 09:00 Constitutional: Yes: Anxious, Mild Distress, Obese Eyes: Yes: Conjunctiva Clear, EOM Intact HENT: Yes: Atraumatic, Normocephalic. No: Drooling Neck: Yes: Supple, Trachea Midline Cardiovascular: Yes: Pulse Irregular, S1, S2. No: Bradycardia, Tachycardia Respiratory: Yes: Regular, Other (On BIPAP m14/7). No: Accessory Muscle Use, Bradypnea, Cough Gastrointestinal: Yes: Normal Bowel Sounds, Soft, Abdomen, Obese. No: Tenderness, Rebound, Vomiting ...Rectal Exam: Yes: Deferred Genitourinary: No: Anuria, Bladder Distention Breast(s): Yes: WNL Musculoskeletal: Yes: Other Extremities: Yes: Other (left ankle -external fixator right ankle dressing clean , intact). No: Calf Tenderness, Cold Edema: Yes Edema: LLE: 1+, RLE: 1+ Integumentary: Yes: Venous Stasis Changes Neurological: Yes: Alert, Oriented. No: Aphasia, Asterixis, Ataxia Psychiatric: Yes: WNL Labs: CBC, BMP 07/26/17 07:26 07/26/17 07:26 INR, PTT INR 1.32 (0.82-1.09) H 07/20/17 06:30 Problem List - Problems (1) Atrial fibrillation Assessment/Plan: continue rate control, on PO A/C now- Code(s): I48.91 - UNSPECIFIED ATRIAL FIBRILLATION Qualifiers: Atrial fibrillation type: chronic Qualified Code(s): I48.2 - Chronic atrial fibrillation (2) CHF (congestive heart failure) Assessment/Plan: OFF UVALDO because of renal failure and hyperkalemia. Continue Lasix PO Continue fluid restrictions. Code(s): I50.9 - HEART FAILURE, UNSPECIFIED (3) Cellulitis of right leg Assessment/Plan: Continue IV ABX for 2 weeks as per ID . PICC line prior to D/C Ortho f/u Wound care Apply UVALDO bandages for venous stasis Code(s): L03.115 - CELLULITIS OF RIGHT LOWER LIMB (4) Diabetes Assessment/Plan: Levemir 80 units QD Novolog sliding scale Avoid Metformin due to renal insufficiency Code(s): E11.9 - TYPE 2 DIABETES MELLITUS WITHOUT COMPLICATIONS Qualifiers: Diabetes mellitus type: type 2 Diabetes mellitus complication status: with circulatory complication (5) Acute renal failure (ARF) Assessment/Plan: Gradually improving BUN /Cr-will follow Code(s): N17.9 - ACUTE KIDNEY FAILURE, UNSPECIFIED (6) Acute renal insufficiency Assessment/Plan: Acute renal insufficiency in CKD Diff dx [id number] insufficiency, ATN and hypotension due to sepsis and infection. Code(s): N28.9 - DISORDER OF KIDNEY AND URETER, UNSPECIFIED (7) Acute gouty arthritis Assessment/Plan: Uloric, Colchicin PO. Code(s): M10.9 - GOUT, UNSPECIFIED (8) Open left ankle fracture Assessment/Plan: S/p external fixation Ortho f/u Pain management IV ABX per ID Code(s): S82.892B - OTH FRACTURE OF LEFT LOWER LEG, INIT FOR OPN FX TYPE I/2 Qualifiers: Encounter type: initial encounter
[2017-07-27] MEDS ORDERED: PICC LINE 8 ML FLUSH PROTOCOL IVPUSH PRN (13:01)
[2017-07-27] MEDS: ACETAMINOPHEN 325 MG TABLET (FP) PO PRN (13:31)
--- NOTE | 2017-07-27 14:09 | PN ---
Progress Note, Physician History of Present Illness: Pt seen and examined at bedside. He is awake and alert. He denies shortness of breath. He feels that his pain is controlled. - Current Medication List Current Medications: Active Medications Acetaminophen (Tylenol -) 650 mg PO Q8H PRN PRN Reason: FEVER Last Admin: 07/27/17 13:31 Dose: 650 mg Acetaminophen (Tylenol -) 650 mg PO Q6H PRN PRN Reason: PAIN LEVEL 6-10 Last Admin: 07/25/17 00:16 Dose: 650 mg Albuterol/Ipratropium (Duoneb -) 1 amp NEB Q4H PRN PRN Reason: SHORTNESS OF BREATH Last Admin: 07/27/17 11:42 Dose: 1 amp Aspirin (Asa -) 81 mg PO DAILY [facility] Last Admin: 07/27/17 09:32 Dose: 81 mg Atenolol (Tenormin -) 100 mg PO BID [facility] Last Admin: 07/27/17 09:35 Dose: 100 mg Atorvastatin Calcium (Lipitor -) 80 mg PO HS [facility] Last Admin: 07/26/17 21:32 Dose: 80 mg Bacitracin (Bacitracin -) 1 applic TP DAILY [facility] Last Admin: 07/27/17 09:40 Dose: Not Given Colchicine (Colcrys -) 0.6 mg PO DAILY [facility] Last Admin: 07/27/17 09:33 Dose: 0.6 mg Collagenase (Santyl -) 1 applic TP DAILY [facility] Last Admin: 07/27/17 10:36 Dose: 1 applic Docusate Sodium (Colace -) 100 mg PO Q8H PRN PRN Reason: CONSTIPATION Febuxostat (Uloric -) 40 mg PO DAILY [facility] Last Admin: 07/27/17 09:34 Dose: 40 mg Furosemide (Lasix Injection -) 80 mg IVPUSH DAILY [facility] Last Admin: 07/27/17 09:36 Dose: 80 mg Glipizide (Glucotrol Xl -) 10 mg PO BID [facility] Last Admin: 07/27/17 09:34 Dose: 10 mg IV Flush (Picc Line Flush) 8 ml IVPUSH PRN PRN PRN Reason: Protocol Vancomycin HCl 1,000 mg/ (Dextrose) 250 mls @ 200 mls/hr IVPB Q24H [facility] PRN Reason: Protocol Last Admin: 07/26/17 17:57 Dose: 200 mls/hr Ceftazidime 1 gm/ Dextrose 50 mls @ 100 mls/hr IVPB Q8H-IV [facility] Last Admin: 07/27/17 09:36 Dose: 100 mls/hr Insulin Aspart (Novolog Vial Sliding Scale -) 1 vial SQ ACHS [facility] PRN Reason: Protocol Last Admin: 07/27/17 11:12 Dose: Not Given Insulin Detemir (Levemir Vial) 80 units SQ DAILY@0700 [facility] Last Admin: 07/27/17 06:38 Dose: 80 units Levothyroxine Sodium (Synthroid -) 100 mcg PO DAILY@0700 [facility] Last Admin: 07/27/17 06:38 Dose: 100 mcg Liraglutide (Victoza -) 1.8 mg SQ DAILY@0700 [facility] Last Admin: 07/27/17 06:38 Dose: 1.8 mg Oxycodone HCl (Roxicodone -) 10 mg PO Q4H PRN PRN Reason: PAIN 1-5 Last Admin: 07/27/17 13:31 Dose: 10 mg Polyethylene Glycol (Miralax (For Daily Use) -) 17 gm PO BID [facility] Last Admin: 07/27/17 09:40 Dose: 17 grams Rivaroxaban (Xarelto -) 15 mg PO DAILY@1800 [facility] Last Admin: 07/26/17 17:57 Dose: 15 mg - Objective Vital Signs: Vital Signs Temperature 98.3 F 07/27/17 09:47 Pulse Rate 76 07/27/17 09:47 Respiratory Rate 18 07/27/17 09:47 Blood Pressure 114/67 07/27/17 09:47 O2 Sat by Pulse Oximetry (%) 91 L 07/27/17 09:00 Constitutional: Yes: Calm Eyes: Yes: Conjunctiva Clear HENT: Yes: Atraumatic Cardiovascular: Yes: S1, S2 Respiratory: Yes: CTA Bilaterally Gastrointestinal: Yes: Soft, Abdomen, Obese Genitourinary: Yes: WNL Musculoskeletal: Yes: Other (s/p left leg fracture with external fixation) Edema: Yes Edema: LLE: 1+, RLE: 1+ Integumentary: Yes: Erythema Neurological: Yes: Oriented Psychiatric: Yes: Oriented Labs: CBC, BMP 07/26/17 07:26 07/26/17 07:26 INR, PTT INR 1.32 (0.82-1.09) H 07/20/17 06:30 Problem List - Problems (1) CKD (chronic kidney disease) Code(s): N18.9 - CHRONIC KIDNEY DISEASE, UNSPECIFIED (2) Accident due to mechanical fall without injury Code(s): W19.XXXA - UNSPECIFIED FALL, INITIAL ENCOUNTER (3) Acute renal failure (ARF) Code(s): N17.9 - ACUTE KIDNEY FAILURE, UNSPECIFIED Assessment/Plan Current Medications Generic Name Dose Route Start Last Admin Trade Name Freq PRN Reason Stop Dose Admin Acetaminophen 650 mg 07/12/17 08:03 07/27/17 13:31 Tylenol - PO 650 mg Q8H PRN Administration FEVER Acetaminophen 650 mg 07/23/17 11:46 07/25/17 00:16 Tylenol - PO 650 mg Q6H PRN Administration PAIN LEVEL 6-10 Albuterol/Ipratropium 1 amp 07/21/17 13:45 07/27/17 11:42 Duoneb - NEB 1 amp Q4H PRN Administration SHORTNESS OF BREATH Aspirin 81 mg 07/20/17 10:00 07/27/17 09:32 Asa - PO 81 mg DAILY [facility]IL Administration Atenolol 100 mg 07/12/17 10:00 07/27/17 09:35 Tenormin - PO 100 mg BID [facility]IL Administration Atorvastatin Calcium 80 mg 07/12/17 22:00 07/26/17 21:32 Lipitor - PO 80 mg HS [facility]IL Administration Bacitracin 1 applic 07/14/17 17:15 07/27/17 09:40 Bacitracin - TP Not Given DAILY [facility] Colchicine 0.6 mg 07/19/17 10:00 07/27/17 09:33 Colcrys - PO 0.6 mg DAILY [facility] Administration Collagenase 1 applic 07/12/17 10:00 07/27/17 10:36 Santyl - TP 1 applic DAILY [facility] Administration Docusate Sodium 100 mg 07/25/17 18:46 Colace - PO Q8H PRN CONSTIPATION Febuxostat 40 mg 07/21/17 10:00 07/27/17 09:34 Uloric - PO 40 mg DAILY [facility] Administration Furosemide 80 mg 07/23/17 10:00 07/27/17 09:36 Lasix Injection - IVPUSH 80 mg DAILY [facility] Administration Glipizide 10 mg 07/12/17 10:00 07/27/17 09:34 Glucotrol Xl - PO 10 mg BID [facility] Administration IV Flush 8 ml 07/27/17 13:01 Picc Line Flush IVPUSH PRN PRN Protocol Vancomycin HCl 1,000 mg/ 250 mls @ 200 mls/hr 07/17/17 15:00 07/26/17 17:57 Dextrose IVPB 200 mls/hr Q24H [facility] Administration Protocol Ceftazidime 1 gm/ Dextrose 50 mls @ 100 mls/hr 07/19/17 13:45 07/27/17 09:36 IVPB 100 mls/hr Q8H-IV [facility] Administration Insulin Aspart 1 vial 07/14/17 11:15 07/27/17 11:12 Novolog Vial Sliding Scale - SQ Not Given ACHS [facility] Protocol Insulin Detemir 80 units 07/22/17 07:00 07/27/17 06:38 Levemir Vial SQ 80 units DAILY@0700 [facility] Administration Levothyroxine Sodium 100 mcg 07/12/17 07:00 07/27/17 06:38 Synthroid - PO 100 mcg DAILY@0700 [facility] Administration Liraglutide 1.8 mg 07/13/17 07:00 07/27/17 06:38 Victoza - SQ 1.8 mg DAILY@0700 [facility] Administration Oxycodone HCl 10 mg 07/26/17 15:15 07/27/17 13:31 Roxicodone - PO 10 mg Q4H PRN Administration PAIN 1-5 Polyethylene Glycol 17 gm 07/26/17 15:15 07/27/17 09:40 Miralax (For Daily Use) - PO 17 grams BID [facility] Administration Rivaroxaban 15 mg 07/26/17 18:00 07/26/17 17:57 Xarelto - PO 15 mg DAILY@1800 [facility] Administration Impression 1. CKD 2. KRUNAL 3. volume overload 4. obesity 5. CAD 6. cellulitis 7. s/p fall 8. a-fib 9. DM 10. hypothyroidism 11. HLD 12. CHF 13. s/p leg fracture Plan - check bmp - renal function has been improving - can switch to lasix 80 mg po q 12hrs on discharge - will need wound care and ortho follow up - abd per ID - discussed plan with pt and his Sally - will follow Dr Quiroz
[2017-07-27] MEDS ORDERED: morphine SULFATE 4 MG/ML VIAL IVPB PRN (14:48)
--- NOTE | 2017-07-27 15:24 | PN ---
Progress Note, Physician History of Present Illness: patient stable doing well for picc line tomorrow will need 12 days of iv abx - Current Medication List Current Medications: Active Medications Acetaminophen (Tylenol -) 650 mg PO Q8H PRN PRN Reason: FEVER Last Admin: 07/27/17 13:31 Dose: 650 mg Acetaminophen (Tylenol -) 650 mg PO Q6H PRN PRN Reason: PAIN LEVEL 6-10 Last Admin: 07/25/17 00:16 Dose: 650 mg Albuterol/Ipratropium (Duoneb -) 1 amp NEB Q4H PRN PRN Reason: SHORTNESS OF BREATH Last Admin: 07/27/17 11:42 Dose: 1 amp Aspirin (Asa -) 81 mg PO DAILY [facility] Last Admin: 07/27/17 09:32 Dose: 81 mg Atenolol (Tenormin -) 100 mg PO BID [facility] Last Admin: 07/27/17 09:35 Dose: 100 mg Atorvastatin Calcium (Lipitor -) 80 mg PO HS [facility] Last Admin: 07/26/17 21:32 Dose: 80 mg Bacitracin (Bacitracin -) 1 applic TP DAILY [facility] Last Admin: 07/27/17 09:40 Dose: Not Given Colchicine (Colcrys -) 0.6 mg PO DAILY [facility] Last Admin: 07/27/17 09:33 Dose: 0.6 mg Collagenase (Santyl -) 1 applic TP DAILY [facility] Last Admin: 07/27/17 10:36 Dose: 1 applic Docusate Sodium (Colace -) 100 mg PO Q8H PRN PRN Reason: CONSTIPATION Febuxostat (Uloric -) 40 mg PO DAILY [facility] Last Admin: 07/27/17 09:34 Dose: 40 mg Furosemide (Lasix Injection -) 80 mg IVPUSH DAILY [facility] Last Admin: 07/27/17 09:36 Dose: 80 mg Glipizide (Glucotrol Xl -) 10 mg PO BID [facility] Last Admin: 07/27/17 09:34 Dose: 10 mg IV Flush (Picc Line Flush) 8 ml IVPUSH PRN PRN PRN Reason: Protocol Vancomycin HCl 1,000 mg/ (Dextrose) 250 mls @ 200 mls/hr IVPB Q24H NEIL PRN Reason: Protocol Last Admin: 07/26/17 17:57 Dose: 200 mls/hr Ceftazidime 1 gm/ Dextrose 50 mls @ 100 mls/hr IVPB Q8H-IV [facility] Last Admin: 07/27/17 09:36 Dose: 100 mls/hr Insulin Aspart (Novolog Vial Sliding Scale -) 1 vial SQ ACHS [facility] PRN Reason: Protocol Last Admin: 07/27/17 11:12 Dose: Not Given Insulin Detemir (Levemir Vial) 80 units SQ DAILY@0700 [facility] Last Admin: 07/27/17 06:38 Dose: 80 units Levothyroxine Sodium (Synthroid -) 100 mcg PO DAILY@0700 [facility] Last Admin: 07/27/17 06:38 Dose: 100 mcg Liraglutide (Victoza -) 1.8 mg SQ DAILY@0700 [facility] Last Admin: 07/27/17 06:38 Dose: 1.8 mg Morphine Sulfate (Morphine Sulfate) 2 mg IVPB Q4H PRN PRN Reason: PAIN LEVEL 6-10 Last Admin: 07/27/17 14:57 Dose: 2 mg Oxycodone HCl (Roxicodone -) 10 mg PO Q4H PRN PRN Reason: PAIN 1-5 Last Admin: 07/27/17 13:31 Dose: 10 mg Polyethylene Glycol (Miralax (For Daily Use) -) 17 gm PO BID [facility] Last Admin: 07/27/17 09:40 Dose: 17 grams Rivaroxaban (Xarelto -) 15 mg PO DAILY@1800 [facility] Last Admin: 07/26/17 17:57 Dose: 15 mg - Objective Vital Signs: Vital Signs Temperature 98.3 F 07/27/17 09:47 Pulse Rate 76 07/27/17 09:47 Respiratory Rate 18 07/27/17 09:47 Blood Pressure 114/67 07/27/17 09:47 O2 Sat by Pulse Oximetry (%) 91 L 07/27/17 09:00 Constitutional: Yes: No Distress, Calm, Obese (severe) Cardiovascular: Yes: Regular Rate and Rhythm Respiratory: Yes: On BiPap, On Nasal O2 Gastrointestinal: Yes: Normal Bowel Sounds, Soft Musculoskeletal: Yes: Other Extremities: Yes: Other Integumentary: Yes: Other Wound/Incision: Yes: Dressing Dry and Intact, Other (ext fixator in place) Neurological: Yes: Alert, Oriented Psychiatric: Yes: Alert, Oriented Labs: CBC, BMP 07/26/17 07:26 07/26/17 07:26 INR, PTT INR 1.32 (0.82-1.09) H 07/20/17 06:30 Assessment/Plan Problem List - Problems (1) Accident due to mechanical fall without injury Code(s): W19.XXXA - UNSPECIFIED FALL, INITIAL ENCOUNTER (2) Atrial fibrillation Code(s): I48.91 - UNSPECIFIED ATRIAL FIBRILLATION Qualifiers: Atrial fibrillation type: chronic Qualified Code(s): I48.2 - Chronic atrial fibrillation (3) CAD (coronary artery disease) Code(s): I25.10 - ATHSCL HEART DISEASE OF [place] CORONARY ARTERY W/O ANG PCTRS (4) CHF (congestive heart failure) Code(s): I50.9 - HEART FAILURE, UNSPECIFIED (5) DVT (deep venous thrombosis) Code(s): I82.409 - ACUTE EMBOLISM AND THOMBOS UNSP DEEP VN UNSP LOWER EXTREMITY Qualifiers: DVT location: lower extremity Affected thrombotic vein of extremity: femoral Chronicity: chronic Laterality: right Qualified Code(s): I82.511 - Chronic embolism and thrombosis of right femoral vein (6) Obesities, morbid Code(s): E66.01 - MORBID (SEVERE) OBESITY DUE TO EXCESS CALORIES (7) Pulmonary embolism Code(s): I26.99 - OTHER PULMONARY EMBOLISM WITHOUT ACUTE COR PULMONALE (8) Venous (peripheral) insufficiency Code(s): I87.2 - VENOUS INSUFFICIENCY (CHRONIC) (PERIPHERAL) (9) Sleep apnea Code(s): G47.30 - SLEEP APNEA, UNSPECIFIED (10) COPD (chronic obstructive pulmonary disease) Code(s): J44.9 - CHRONIC OBSTRUCTIVE PULMONARY DISEASE, UNSPECIFIED (11) Pulmonary HTN Code(s): I27.20 - PULMONARY HYPERTENSION, UNSPECIFIED (12) Dyspnea Code(s): R06.00 - DYSPNEA, UNSPECIFIED (13) Cellulitis Code(s): L03.90 - CELLULITIS, UNSPECIFIED 14) wound infection 15 leukocytosis 16 compound fracture left ankle plan patient need to continue both abx as the skin was broken wiht bone exposed he needs at least for another 2 weeks he still has 12 days remaining resp support rest continue current mgmt wound care
[2017-07-27] MEDS: RIVAROXABAN 15 MG TABLET PO SCH (17:37)
[2017-07-27] MEDS: ATORVASTATIN CA 80 MG TABLET (FP) PO SCH (21:33)
[2017-07-27] MEDS ORDERED: INSULIN (NOVOLOG) ASPART 100 UNITS/ML 10ML VIAL ONE (21:34)
[2017-07-28] MEDS: CEFTAZIDIME PENTAHYDRATE 1 GM in DEXTROSE 5%-WATER - 50 ML IVPB SCH ×3 (01:30→17:32)
[2017-07-28] MEDS: oxyCODONE HCL 5 MG TABLET PO PRN ×3 (04:02→16:03)
[2017-07-28] MEDS: INSULIN SLIDING SCALE (NOVOLOG) 1 VIAL SQ SCH ×4 (06:21→21:57)
[2017-07-28] MEDS: LEVOTHYROXINE NA 100 MCG TABLET (FP) PO SCH (06:21)
[2017-07-28] MEDS ORDERED: PT OWN MED DRAWER 7, Y5N ONE ×8 (06:35→17:29)
[2017-07-28] MEDS: INSULIN (LEVEMIR) 100 UNITS/ML UNITS SQ SCH (06:39)
[2017-07-28] MEDS: LIRAGLUTIDE 0.6 MG/0.1 ML PEN.INJCTR SQ SCH (06:40)
[2017-07-28 07:36] LABS: BASO % 0.4 % (0-2.0); EOS % 2.7 % (0-4.5); HEMOGLOBIN 8.7 GM/dL (11.7-16.9); LYMPH % 9.1 % (8-40); MCH 31.6 pg (25.7-33.7); MCHC 32.2 g/dl (32.0-35.9); MEAN PLT VOLUME 8.6 fl (7.5-11.1); MONO % 8.9 % (3.8-10.2); NEUT % 78.9 % (42.8-82.8); PLATELET COUNT 179 K/MM3 (134-434); RBC 2.76 M/mm3 (4.00-5.60); RDW 18.1 % (11.9-15.9); WHITE BLOOD COUNT 9.6 K/mm3 (4.0-10.0)
[2017-07-28 08:09] LABS: ALBUMIN 2.6 g/dl (3.4-5.0); ANION GAP 10 (8-16); BLOOD UREA NITROGEN 58 mg/dL (7-18); CALCIUM 8.4 mg/dL (8.5-10.1); CHLORIDE 106 mmol/L (98-107); CO2 26 mmol/L (21-32); GLUCOSE,RANDOM 160 mg/dL (74-106); POTASSIUM 4.4 mmol/L (3.5-5.1); SODIUM 142 mmol/L (136-145)
[2017-07-28] MEDS ORDERED: BISACODYL 5 MG TABLET.DR (FP) PO PRN (08:12)
[2017-07-28 08:14] LABS: ALK PHOS 78 U/L (45-117); BILIRUBIN,TOTAL 0.7 mg/dL (0.2-1.0); SGOT/AST 27 U/L (15-37); SGPT/ALT 51 U/L (12-78); TOT PROT 6.9 g/dl (6.4-8.2)
--- NOTE | 2017-07-28 08:18 | PN ---
Progress Note, Physician Chief Complaint: C/o constipation, pain in left ankle is controlled. History of Present Illness: Morbid obesity. ASHLEY. Bilateral PE. Pulmonary HTN-CTEPH AND CLASS 2 PAH. CHF-mostly diastolic. ASHD. STEMI in 2016 with MICHAEL x2 placed at [facility]. Chronic A.Fib-on a/c-Xarelto/ASA now. Gout. Gouty arthritis CKD 2-3 DM type 2. Chronic DVT Right thigh, Stasis ulcers, edema. Chronic wound right Ankle/dobbs-RX at [facility]-groing multiple organisms. - Current Medication List Current Medications: Active Medications Acetaminophen (Tylenol -) 650 mg PO Q8H PRN PRN Reason: FEVER Last Admin: 07/27/17 13:31 Dose: 650 mg Acetaminophen (Tylenol -) 650 mg PO Q6H PRN PRN Reason: PAIN LEVEL 6-10 Last Admin: 07/25/17 00:16 Dose: 650 mg Albuterol/Ipratropium (Duoneb -) 1 amp NEB Q4H PRN PRN Reason: SHORTNESS OF BREATH Last Admin: 07/27/17 11:42 Dose: 1 amp Aspirin (Asa -) 81 mg PO DAILY [facility] Last Admin: 07/27/17 09:32 Dose: 81 mg Atenolol (Tenormin -) 100 mg PO BID [facility] Last Admin: 07/27/17 21:33 Dose: 100 mg Atorvastatin Calcium (Lipitor -) 80 mg PO HS [facility] Last Admin: 07/27/17 21:33 Dose: 80 mg Bacitracin (Bacitracin -) 1 applic TP DAILY [facility] Last Admin: 07/27/17 09:40 Dose: Not Given Colchicine (Colcrys -) 0.6 mg PO DAILY [facility] Last Admin: 07/27/17 09:33 Dose: 0.6 mg Collagenase (Santyl -) 1 applic TP DAILY [facility] Last Admin: 07/27/17 10:36 Dose: 1 applic Docusate Sodium (Colace -) 100 mg PO Q8H PRN PRN Reason: CONSTIPATION Febuxostat (Uloric -) 40 mg PO DAILY [facility] Last Admin: 07/27/17 09:34 Dose: 40 mg Furosemide (Lasix Injection -) 80 mg IVPUSH DAILY [facility] Last Admin: 07/27/17 09:36 Dose: 80 mg Glipizide (Glucotrol Xl -) 10 mg PO BID [facility] Last Admin: 07/27/17 21:33 Dose: 10 mg IV Flush (Picc Line Flush) 8 ml IVPUSH PRN PRN PRN Reason: Protocol Vancomycin HCl 1,000 mg/ (Dextrose) 250 mls @ 200 mls/hr IVPB Q24H NEIL PRN Reason: Protocol Last Admin: 07/26/17 17:57 Dose: 200 mls/hr Ceftazidime 1 gm/ Dextrose 50 mls @ 100 mls/hr IVPB Q8H-IV [facility] Last Admin: 07/28/17 01:30 Dose: 100 mls/hr Insulin Aspart (Novolog Vial Sliding Scale -) 1 vial SQ ACHS [facility] PRN Reason: Protocol Last Admin: 07/28/17 06:21 Dose: Not Given Insulin Detemir (Levemir Vial) 80 units SQ DAILY@0700 [facility] Last Admin: 07/28/17 06:39 Dose: 80 units Levothyroxine Sodium (Synthroid -) 100 mcg PO DAILY@0700 [facility] Last Admin: 07/28/17 06:21 Dose: 100 mcg Liraglutide (Victoza -) 1.8 mg SQ DAILY@0700 [facility] Last Admin: 07/28/17 06:40 Dose: 1.8 mg Morphine Sulfate (Morphine Sulfate) 2 mg IVPB Q4H PRN PRN Reason: PAIN LEVEL 6-10 Last Admin: 07/27/17 14:57 Dose: 2 mg Oxycodone HCl (Roxicodone -) 10 mg PO Q4H PRN PRN Reason: PAIN 1-5 Last Admin: 07/28/17 04:02 Dose: 10 mg Polyethylene Glycol (Miralax (For Daily Use) -) 17 gm PO BID [facility] Last Admin: 07/27/17 21:36 Dose: 17 grams Rivaroxaban (Xarelto -) 15 mg PO DAILY@1800 [facility] Last Admin: 07/27/17 17:37 Dose: 15 mg - Objective Vital Signs: Vital Signs Temperature 98.0 F 07/28/17 06:10 Pulse Rate 75 07/28/17 06:10 Respiratory Rate 20 07/28/17 06:10 Blood Pressure 128/78 07/28/17 06:10 O2 Sat by Pulse Oximetry (%) 91 L 07/27/17 21:00 Constitutional: Yes: Calm, Mild Distress, Obese Eyes: Yes: Conjunctiva Clear, EOM Intact HENT: Yes: Atraumatic, Normocephalic Neck: Yes: Supple, Trachea Midline Cardiovascular: Yes: Pulse Irregular, S1, S2. No: Bradycardia, Tachycardia Respiratory: Yes: CTA Bilaterally, Other (BIPAP 14/7). No: Cough, Dullness Gastrointestinal: Yes: Normal Bowel Sounds, Soft, Abdomen, Obese. No: Distention, Tenderness, Tenderness, Epigastrium, Tenderness, Rebound, Vomiting Genitourinary: No: Anuria Breast(s): Yes: WNL Musculoskeletal: No: Back Pain Extremities: Yes: Other (Left external fixation.) Edema: Yes Edema: LLE: 1+, RLE: 1+ Peripheral Pulses WNL: No Integumentary: Yes: Pressure Ulcer (left ankle), Venous Stasis Changes Neurological: Yes: Alert, Oriented. No: Aphasia, Dysarthria, Tremors ...Motor Strength: WNL Psychiatric: Yes: WNL Labs: CBC, BMP 07/28/17 06:40 INR, PTT INR 1.32 (0.82-1.09) H 07/20/17 06:30 Problem List - Problems (1) Atrial fibrillation Assessment/Plan: continue rate control, heparin Code(s): I48.91 - UNSPECIFIED ATRIAL FIBRILLATION Qualifiers: Atrial fibrillation type: chronic Qualified Code(s): I48.2 - Chronic atrial fibrillation (2) CHF (congestive heart failure) Assessment/Plan: OFF UVALDO nephrology consult noted Continue Lasix though noted worsening renal fx Decrease PO fluids intake-restriction 1400 cc Code(s): I50.9 - HEART FAILURE, UNSPECIFIED (3) Cellulitis of right leg Assessment/Plan: Received 7 days of IV Zosyn, will switch to PO-when the w/u for left leg pain- negative for ostheomyelitis. Wound care Apply UVALDO bandages for venous stasis Code(s): L03.115 - CELLULITIS OF RIGHT LOWER LIMB (4) Diabetes Assessment/Plan: Increase Levemir 60 units QD Novolog sliding scale Code(s): E11.9 - TYPE 2 DIABETES MELLITUS WITHOUT COMPLICATIONS Qualifiers: Diabetes mellitus type: type 2 Diabetes mellitus complication status: with circulatory complication (5) Acute renal failure (ARF) Assessment/Plan: Gradually improving BUN /Cr-will follow Code(s): N17.9 - ACUTE KIDNEY FAILURE, UNSPECIFIED (6) Acute renal insufficiency Assessment/Plan: Acute renal insufficiency in CKD Diff dx [id number] insufficiency, ATN and hypotension due to sepsis and infection. Code(s): N28.9 - DISORDER OF KIDNEY AND URETER, UNSPECIFIED (7) Acute gouty arthritis Assessment/Plan: Uloric, Colchicin PO. Code(s): M10.9 - GOUT, UNSPECIFIED (8) Open left ankle fracture Assessment/Plan: S/p external fixation Ortho f/u Pain management IV ABX per ID Code(s): S82.892B - OTH FRACTURE OF LEFT LOWER LEG, INIT FOR OPN FX TYPE I/2 Qualifiers: Encounter type: initial encounter
[2017-07-28] MEDS ORDERED: MAGNESIUM HYDROX 2400MG/30ML ORAL SUSPENSION 30 ML CUP PO ONE (08:45)
--- NOTE | 2017-07-28 09:04 | PN ---
Progress Note, Physician Chief Complaint: heading down for PICC - Current Medication List Current Medications: Active Medications Acetaminophen (Tylenol -) 650 mg PO Q8H PRN PRN Reason: FEVER Last Admin: 07/27/17 13:31 Dose: 650 mg Acetaminophen (Tylenol -) 650 mg PO Q6H PRN PRN Reason: PAIN LEVEL 6-10 Last Admin: 07/25/17 00:16 Dose: 650 mg Albuterol/Ipratropium (Duoneb -) 1 amp NEB Q4H PRN PRN Reason: SHORTNESS OF BREATH Last Admin: 07/27/17 11:42 Dose: 1 amp Aspirin (Asa -) 81 mg PO DAILY [facility] Last Admin: 07/27/17 09:32 Dose: 81 mg Atenolol (Tenormin -) 100 mg PO BID [facility] Last Admin: 07/27/17 21:33 Dose: 100 mg Atorvastatin Calcium (Lipitor -) 80 mg PO HS [facility] Last Admin: 07/27/17 21:33 Dose: 80 mg Bacitracin (Bacitracin -) 1 applic TP DAILY [facility] Last Admin: 07/27/17 09:40 Dose: Not Given Bisacodyl (Dulcolax -) 10 mg PO DAILY PRN PRN Reason: CONSTIPATION Colchicine (Colcrys -) 0.6 mg PO DAILY [facility] Last Admin: 07/27/17 09:33 Dose: 0.6 mg Collagenase (Santyl -) 1 applic TP DAILY [facility] Last Admin: 07/27/17 10:36 Dose: 1 applic Docusate Sodium (Colace -) 100 mg PO Q8H PRN PRN Reason: CONSTIPATION Febuxostat (Uloric -) 40 mg PO DAILY [facility] Last Admin: 07/27/17 09:34 Dose: 40 mg Furosemide (Lasix Injection -) 80 mg IVPUSH DAILY [facility] Last Admin: 07/27/17 09:36 Dose: 80 mg Glipizide (Glucotrol Xl -) 10 mg PO BID [facility] Last Admin: 07/27/17 21:33 Dose: 10 mg IV Flush (Picc Line Flush) 8 ml IVPUSH PRN PRN PRN Reason: Protocol Vancomycin HCl 1,000 mg/ (Dextrose) 250 mls @ 200 mls/hr IVPB Q24H [facility] PRN Reason: Protocol Last Admin: 04/30/18 17:57 Dose: 200 mls/hr Ceftazidime 1 gm/ Dextrose 50 mls @ 100 mls/hr IVPB Q8H-IV [facility] Last Admin: 07/28/17 01:30 Dose: 100 mls/hr Insulin Aspart (Novolog Vial Sliding Scale -) 1 vial SQ ACHS [facility] PRN Reason: Protocol Last Admin: 07/28/17 06:21 Dose: Not Given Insulin Detemir (Levemir Vial) 80 units SQ DAILY@0700 [facility] Last Admin: 07/28/17 06:39 Dose: 80 units Levothyroxine Sodium (Synthroid -) 100 mcg PO DAILY@0700 [facility] Last Admin: 07/28/17 06:21 Dose: 100 mcg Liraglutide (Victoza -) 1.8 mg SQ DAILY@0700 [facility] Last Admin: 07/28/17 06:40 Dose: 1.8 mg Morphine Sulfate (Morphine Sulfate) 2 mg IVPB Q4H PRN PRN Reason: PAIN LEVEL 6-10 Last Admin: 07/27/17 14:57 Dose: 2 mg Oxycodone HCl (Roxicodone -) 10 mg PO Q4H PRN PRN Reason: PAIN 1-5 Last Admin: 07/28/17 04:02 Dose: 10 mg Polyethylene Glycol (Miralax (For Daily Use) -) 17 gm PO BID [facility] Last Admin: 07/27/17 21:36 Dose: 17 grams Rivaroxaban (Xarelto -) 15 mg PO DAILY@1800 [facility] Last Admin: 07/27/17 17:37 Dose: 15 mg - Objective Vital Signs: Vital Signs Temperature 97.6 F 07/28/17 08:00 Pulse Rate 75 07/28/17 08:00 Respiratory Rate 20 07/28/17 08:00 Blood Pressure 110/49 07/28/17 08:00 O2 Sat by Pulse Oximetry (%) 91 L 07/27/17 21:00 Constitutional: Yes: Calm Cardiovascular: Yes: Pulse Irregular Respiratory: Yes: CTA Bilaterally Gastrointestinal: Yes: Soft, Abdomen, Obese Edema: Yes Edema: LLE: 1+, RLE: 1+ Neurological: Yes: Alert ...Motor Strength: WNL Labs: CBC, BMP 07/28/17 06:40 07/28/17 06:40 INR, PTT INR 1.32 (0.82-1.09) H 07/20/17 06:30 Laboratory Tests 07/26/17 07/28/17 07/28/17 07:26 06:40 06:40 WBC 9.6 Hgb 8.7 L Plt Count 179 PTT (Actin FS) 69.1 H Potassium 4.4 BUN 58 H Creatinine 2.0 H Assessment/Plan IMP: Mechanical fall resulting in spontaneous open fracture left ankle requiring emergent operative intervention, ext. fixation ARF, acute on chronic, now improved. RLE cellulitis Acute Gout Morbid obesity PHTN Chronic AF CAD s/p PCI Acute on chronic diastolic CHF REC: 1. As renal fx improved, to resume Xarelto 2. For PICC
[2017-07-28] MEDS: BACITRACIN 15 GM TUBE TOPICAL OINTMENT TP SCH (10:25)
[2017-07-28] MEDS: FEBUXOSTAT 40 MG TAB PO SCH (11:16)
[2017-07-28] MEDS: glipiZIDE-XL 10 MG TAB.ER.24 (FP) PO SCH ×2 (11:17→21:58)
[2017-07-28] MEDS: COLCHICINE 0.6 MG TABLET (FP) PO SCH (11:17)
[2017-07-28] MEDS: ATENOLOL 50 MG TABLET (FP) PO SCH ×2 (11:17→21:58)
[2017-07-28] MEDS: ASPIRIN 81 MG CHEWABLE TABLETS PO SCH (11:18)
[2017-07-28] MEDS: FUROSEMIDE 40 MG/4 ML INJECTABLE VIAL IVPUSH SCH (11:18)
[2017-07-28] MEDS: POLYETHYLENE GLYCOL 3350 119 GM BTL PO SCH ×2 (11:18→21:58)
[2017-07-28] MEDS: COLLAGENASE CLOSTRIDIUM HIST. 30 GRAMS TUBE TP SCH (11:28)
[2017-07-28] MEDS: ALBUTEROL SO4 2.5/IPRATROPIUM 0.5 INH SOL 3 ML VIAL.NEB. NEB PRN ×3 (12:13→22:23)
--- NOTE | 2017-07-28 13:11 | PN ---
Progress Note, Physician History of Present Illness: stable doing well no complaints in the room - Current Medication List Current Medications: Active Medications Acetaminophen (Tylenol -) 650 mg PO Q8H PRN PRN Reason: FEVER Last Admin: 07/27/17 13:31 Dose: 650 mg Acetaminophen (Tylenol -) 650 mg PO Q6H PRN PRN Reason: PAIN LEVEL 6-10 Last Admin: 07/25/17 00:16 Dose: 650 mg Albuterol/Ipratropium (Duoneb -) 1 amp NEB Q4H PRN PRN Reason: SHORTNESS OF BREATH Last Admin: 07/28/17 12:13 Dose: 1 amp Aspirin (Asa -) 81 mg PO DAILY [facility] Last Admin: 07/28/17 11:18 Dose: 81 mg Atenolol (Tenormin -) 100 mg PO BID [facility] Last Admin: 07/28/17 11:17 Dose: 100 mg Atorvastatin Calcium (Lipitor -) 80 mg PO HS [facility] Last Admin: 07/27/17 21:33 Dose: 80 mg Bacitracin (Bacitracin -) 1 applic TP DAILY [facility] Last Admin: 07/28/17 10:25 Dose: Not Given Bisacodyl (Dulcolax -) 10 mg PO DAILY PRN PRN Reason: CONSTIPATION Colchicine (Colcrys -) 0.6 mg PO DAILY [facility] Last Admin: 07/28/17 11:17 Dose: 0.6 mg Collagenase (Santyl -) 1 applic TP DAILY [facility] Last Admin: 07/28/17 11:28 Dose: 1 applic Docusate Sodium (Colace -) 100 mg PO Q8H PRN PRN Reason: CONSTIPATION Febuxostat (Uloric -) 40 mg PO DAILY [facility] Last Admin: 07/28/17 11:16 Dose: 40 mg Furosemide (Lasix Injection -) 80 mg IVPUSH DAILY [facility] Last Admin: 07/28/17 11:18 Dose: 80 mg Glipizide (Glucotrol Xl -) 10 mg PO BID [facility] Last Admin: 07/28/17 11:17 Dose: 10 mg IV Flush (Picc Line Flush) 8 ml IVPUSH PRN PRN PRN Reason: Protocol Vancomycin HCl 1,000 mg/ (Dextrose) 250 mls @ 200 mls/hr IVPB Q24H [facility] PRN Reason: Protocol Last Admin: 07/26/17 17:57 Dose: 200 mls/hr Ceftazidime 1 gm/ Dextrose 50 mls @ 100 mls/hr IVPB Q8H-IV [facility] Last Admin: 07/28/17 11:28 Dose: 100 mls/hr Insulin Aspart (Novolog Vial Sliding Scale -) 1 vial SQ ACHS [facility] PRN Reason: Protocol Last Admin: 07/28/17 11:28 Dose: 2 units Insulin Detemir (Levemir Vial) 80 units SQ DAILY@0700 [facility] Last Admin: 07/28/17 06:39 Dose: 80 units Levothyroxine Sodium (Synthroid -) 100 mcg PO DAILY@0700 [facility] Last Admin: 07/28/17 06:21 Dose: 100 mcg Liraglutide (Victoza -) 1.8 mg SQ DAILY@0700 [facility] Last Admin: 07/28/17 06:40 Dose: 1.8 mg Morphine Sulfate (Morphine Sulfate) 2 mg IVPB Q4H PRN PRN Reason: PAIN LEVEL 6-10 Last Admin: 07/27/17 14:57 Dose: 2 mg Oxycodone HCl (Roxicodone -) 10 mg PO Q4H PRN PRN Reason: PAIN 1-5 Last Admin: 07/28/17 11:27 Dose: 10 mg Polyethylene Glycol (Miralax (For Daily Use) -) 17 gm PO BID [facility] Last Admin: 07/28/17 11:18 Dose: 17 grams Rivaroxaban (Xarelto -) 15 mg PO DAILY@1800 [facility] Last Admin: 07/27/17 17:37 Dose: 15 mg - Objective Vital Signs: Vital Signs Temperature 97.6 F 07/28/17 08:00 Pulse Rate 75 07/28/17 08:00 Respiratory Rate 20 07/28/17 08:00 Blood Pressure 110/49 07/28/17 08:00 O2 Sat by Pulse Oximetry (%) 98 07/28/17 09:00 Constitutional: Yes: No Distress, Calm, Obese (severe) Cardiovascular: Yes: Regular Rate and Rhythm Gastrointestinal: Yes: Normal Bowel Sounds, Soft Musculoskeletal: Yes: Other Extremities: Yes: Other Wound/Incision: Yes: Dressing Dry and Intact Neurological: Yes: Alert, Oriented Psychiatric: Yes: Alert, Oriented Labs: CBC, BMP 07/28/17 06:40 07/28/17 06:40 INR, PTT INR 1.32 (0.82-1.09) H 07/20/17 06:30 Assessment/Plan Problem List - Problems (1) Accident due to mechanical fall without injury Code(s): W19.XXXA - UNSPECIFIED FALL, INITIAL ENCOUNTER (2) Atrial fibrillation Code(s): I48.91 - UNSPECIFIED ATRIAL FIBRILLATION Qualifiers: Atrial fibrillation type: chronic Qualified Code(s): I48.2 - Chronic atrial fibrillation (3) CAD (coronary artery disease) Code(s): I25.10 - ATHSCL HEART DISEASE OF [place] CORONARY ARTERY W/O ANG PCTRS (4) CHF (congestive heart failure) Code(s): I50.9 - HEART FAILURE, UNSPECIFIED (5) DVT (deep venous thrombosis) Code(s): I82.409 - ACUTE EMBOLISM AND THOMBOS UNSP DEEP VN UNSP LOWER EXTREMITY Qualifiers: DVT location: lower extremity Affected thrombotic vein of extremity: femoral Chronicity: chronic Laterality: right Qualified Code(s): I82.511 - Chronic embolism and thrombosis of right femoral vein (6) Obesities, morbid Code(s): E66.01 - MORBID (SEVERE) OBESITY DUE TO EXCESS CALORIES (7) Pulmonary embolism Code(s): I26.99 - OTHER PULMONARY EMBOLISM WITHOUT ACUTE COR PULMONALE (8) Venous (peripheral) insufficiency Code(s): I87.2 - VENOUS INSUFFICIENCY (CHRONIC) (PERIPHERAL) (9) Sleep apnea Code(s): G47.30 - SLEEP APNEA, UNSPECIFIED (10) COPD (chronic obstructive pulmonary disease) Code(s): J44.9 - CHRONIC OBSTRUCTIVE PULMONARY DISEASE, UNSPECIFIED (11) Pulmonary HTN Code(s): I27.20 - PULMONARY HYPERTENSION, UNSPECIFIED (12) Dyspnea Code(s): R06.00 - DYSPNEA, UNSPECIFIED (13) Cellulitis Code(s): L03.90 - CELLULITIS, UNSPECIFIED 14) wound infection 15 leukocytosis 16 compound fracture left ankle plan continue abx 11 days more wound care rest as per the team
[2017-07-28] MEDS ORDERED: FUROSEMIDE 40 MG/4 ML INJECTABLE VIAL IVPUSH ONE (13:14)
--- NOTE | 2017-07-28 13:14 | PN ---
Progress Note, Physician History of Present Illness: Pt seen and examined at bedside. He complains of increased edema. He denies shortness of breath. - Current Medication List Current Medications: Active Medications Acetaminophen (Tylenol -) 650 mg PO Q8H PRN PRN Reason: FEVER Last Admin: 07/27/17 13:31 Dose: 650 mg Acetaminophen (Tylenol -) 650 mg PO Q6H PRN PRN Reason: PAIN LEVEL 6-10 Last Admin: 07/25/17 00:16 Dose: 650 mg Albuterol/Ipratropium (Duoneb -) 1 amp NEB Q4H PRN PRN Reason: SHORTNESS OF BREATH Last Admin: 07/28/17 12:13 Dose: 1 amp Aspirin (Asa -) 81 mg PO DAILY [facility] Last Admin: 07/28/17 11:18 Dose: 81 mg Atenolol (Tenormin -) 100 mg PO BID [facility] Last Admin: 07/28/17 11:17 Dose: 100 mg Atorvastatin Calcium (Lipitor -) 80 mg PO HS [facility] Last Admin: 07/27/17 21:33 Dose: 80 mg Bacitracin (Bacitracin -) 1 applic TP DAILY [facility] Last Admin: 07/28/17 10:25 Dose: Not Given Bisacodyl (Dulcolax -) 10 mg PO DAILY PRN PRN Reason: CONSTIPATION Colchicine (Colcrys -) 0.6 mg PO DAILY [facility] Last Admin: 07/28/17 11:17 Dose: 0.6 mg Collagenase (Santyl -) 1 applic TP DAILY [facility] Last Admin: 07/28/17 11:28 Dose: 1 applic Docusate Sodium (Colace -) 100 mg PO Q8H PRN PRN Reason: CONSTIPATION Febuxostat (Uloric -) 40 mg PO DAILY [facility] Last Admin: 07/28/17 11:16 Dose: 40 mg Furosemide (Lasix Injection -) 80 mg IVPUSH DAILY [facility] Last Admin: 07/28/17 11:18 Dose: 80 mg Glipizide (Glucotrol Xl -) 10 mg PO BID [facility] Last Admin: 07/28/17 11:17 Dose: 10 mg IV Flush (Picc Line Flush) 8 ml IVPUSH PRN PRN PRN Reason: Protocol Vancomycin HCl 1,000 mg/ (Dextrose) 250 mls @ 200 mls/hr IVPB Q24H NEIL PRN Reason: Protocol Last Admin: 07/26/17 17:57 Dose: 200 mls/hr Ceftazidime 1 gm/ Dextrose 50 mls @ 100 mls/hr IVPB Q8H-IV [facility] Last Admin: 07/28/17 11:28 Dose: 100 mls/hr Insulin Aspart (Novolog Vial Sliding Scale -) 1 vial SQ ACHS [facility] PRN Reason: Protocol Last Admin: 07/28/17 11:28 Dose: 2 units Insulin Detemir (Levemir Vial) 80 units SQ DAILY@0700 [facility] Last Admin: 07/28/17 06:39 Dose: 80 units Levothyroxine Sodium (Synthroid -) 100 mcg PO DAILY@0700 [facility] Last Admin: 07/28/17 06:21 Dose: 100 mcg Liraglutide (Victoza -) 1.8 mg SQ DAILY@0700 [facility] Last Admin: 07/28/17 06:40 Dose: 1.8 mg Morphine Sulfate (Morphine Sulfate) 2 mg IVPB Q4H PRN PRN Reason: PAIN LEVEL 6-10 Last Admin: 07/27/17 14:57 Dose: 2 mg Oxycodone HCl (Roxicodone -) 10 mg PO Q4H PRN PRN Reason: PAIN 1-5 Last Admin: 07/28/17 11:27 Dose: 10 mg Polyethylene Glycol (Miralax (For Daily Use) -) 17 gm PO BID [facility] Last Admin: 07/28/17 11:18 Dose: 17 grams Rivaroxaban (Xarelto -) 15 mg PO DAILY@1800 [facility] Last Admin: 07/27/17 17:37 Dose: 15 mg - Objective Vital Signs: Vital Signs Temperature 97.6 F 07/28/17 08:00 Pulse Rate 75 07/28/17 08:00 Respiratory Rate 20 07/28/17 08:00 Blood Pressure 110/49 07/28/17 08:00 O2 Sat by Pulse Oximetry (%) 98 07/28/17 09:00 Constitutional: Yes: Calm Eyes: Yes: Conjunctiva Clear HENT: Yes: Atraumatic Cardiovascular: Yes: S1, S2 Respiratory: Yes: CTA Bilaterally Gastrointestinal: Yes: Soft, Abdomen, Obese Genitourinary: Yes: WNL Musculoskeletal: Yes: Other (external fixation of fracture) Edema: Yes Edema: LLE: 2+, RLE: 2+ Neurological: Yes: Oriented Psychiatric: Yes: Oriented Labs: CBC, BMP 07/28/17 06:40 07/28/17 06:40 INR, PTT INR 1.32 (0.82-1.09) H 07/20/17 06:30 Problem List - Problems (1) CKD (chronic kidney disease) Code(s): N18.9 - CHRONIC KIDNEY DISEASE, UNSPECIFIED (2) Accident due to mechanical fall without injury Code(s): W19.XXXA - UNSPECIFIED FALL, INITIAL ENCOUNTER (3) Acute renal failure (ARF) Code(s): N17.9 - ACUTE KIDNEY FAILURE, UNSPECIFIED Assessment/Plan Current Medications Generic Name Dose Route Start Last Admin Trade Name Freq PRN Reason Stop Dose Admin Acetaminophen 650 mg 07/12/17 08:03 07/27/17 13:31 Tylenol - PO 650 mg Q8H PRN Administration FEVER Acetaminophen 650 mg 07/23/17 11:46 07/25/17 00:16 Tylenol - PO 650 mg Q6H PRN Administration PAIN LEVEL 6-10 Albuterol/Ipratropium 1 amp 07/21/17 13:45 07/28/17 12:13 Duoneb - NEB 1 amp Q4H PRN Administration SHORTNESS OF BREATH Aspirin 81 mg 07/20/17 10:00 07/28/17 11:18 Asa - PO 81 mg DAILY NEIL Administration Atenolol 100 mg 07/12/17 10:00 07/28/17 11:17 Tenormin - PO 100 mg BID NEIL Administration Atorvastatin Calcium 80 mg 07/12/17 22:00 07/27/17 21:33 Lipitor - PO 80 mg HS NEIL Administration Bacitracin 1 applic 07/14/17 17:15 07/28/17 10:25 Bacitracin - TP Not Given DAILY NEIL Bisacodyl 10 mg 07/28/17 08:12 Dulcolax - PO DAILY PRN CONSTIPATION Colchicine 0.6 mg 07/19/17 10:00 07/28/17 11:17 Colcrys - PO 0.6 mg DAILY NEIL Administration Collagenase 1 applic 07/12/17 10:00 07/28/17 11:28 Santyl - TP 1 applic DAILY NEIL Administration Docusate Sodium 100 mg 07/25/17 18:46 Colace - PO Q8H PRN CONSTIPATION Febuxostat 40 mg 07/21/17 10:00 07/28/17 11:16 Uloric - PO 40 mg DAILY NEIL Administration Furosemide 80 mg 07/23/17 10:00 07/28/17 11:18 Lasix Injection - IVPUSH 80 mg DAILY NEIL Administration Glipizide 10 mg 07/12/17 10:00 07/28/17 11:17 Glucotrol Xl - PO 10 mg BID NEIL Administration IV Flush 8 ml 07/27/17 13:01 Picc Line Flush IVPUSH PRN PRN Protocol Vancomycin HCl 1,000 mg/ 250 mls @ 200 mls/hr 07/17/17 15:00 07/26/17 17:57 Dextrose IVPB 200 mls/hr Q24H NEIL Administration Protocol Ceftazidime 1 gm/ Dextrose 50 mls @ 100 mls/hr 07/19/17 13:45 07/28/17 11:28 IVPB 100 mls/hr Q8H-IV NEIL Administration Insulin Aspart 1 vial 07/14/17 11:15 07/28/17 11:28 Novolog Vial Sliding Scale - SQ 2 units ACHS NEIL Administration Protocol Insulin Detemir 80 units 07/22/17 07:00 07/28/17 06:39 Levemir Vial SQ 80 units DAILY@0700 [facility] Administration Levothyroxine Sodium 100 mcg 07/12/17 07:00 07/28/17 06:21 Synthroid - PO 100 mcg DAILY@0700 [facility] Administration Liraglutide 1.8 mg 07/13/17 07:00 07/28/17 06:40 Victoza - SQ 1.8 mg DAILY@0700 NEIL Administration Morphine Sulfate 2 mg 07/27/17 14:48 07/27/17 14:57 Morphine Sulfate IVPB 2 mg Q4H PRN Administration PAIN LEVEL 6-10 Oxycodone HCl 10 mg 07/26/17 15:15 07/28/17 11:27 Roxicodone - PO 10 mg Q4H PRN Administration PAIN 1-5 Polyethylene Glycol 17 gm 07/26/17 15:15 07/28/17 11:18 Miralax (For Daily Use) - PO 17 grams BID NEIL Administration Rivaroxaban 15 mg 07/26/17 18:00 07/27/17 17:37 Xarelto - PO 15 mg DAILY@1800 NEIL Administration Impression 1. CKD 2. KRUNAL 3. volume overload 4. obesity 5. CAD 6. cellulitis 7. s/p fall 8. a-fib 9. DM 10. hypothyroidism 11. HLD 12. CHF 13. s/p leg fracture Plan - renal function is stable - will give another dose of lasix - repeat labs in am - cont wound care - abx per ID - discussed plan with pt and his Sally - will follow Dr Quiroz
[2017-07-28] MEDS ORDERED: VANCOMYCIN 1 GM PREMIX - 1 GM/200 ML BAG IVPB ONE (15:00)
--- NOTE | 2017-07-28 15:28 | PN ---
Progress Note, Physician History of Present Illness: pulmonary alert,feeling better,-resp distress - Current Medication List Current Medications: Active Medications Acetaminophen (Tylenol -) 650 mg PO Q8H PRN PRN Reason: FEVER Last Admin: 07/27/17 13:31 Dose: 650 mg Acetaminophen (Tylenol -) 650 mg PO Q6H PRN PRN Reason: PAIN LEVEL 6-10 Last Admin: 07/25/17 00:16 Dose: 650 mg Albuterol/Ipratropium (Duoneb -) 1 amp NEB Q4H PRN PRN Reason: SHORTNESS OF BREATH Last Admin: 07/28/17 12:13 Dose: 1 amp Aspirin (Asa -) 81 mg PO DAILY [facility] Last Admin: 07/28/17 11:18 Dose: 81 mg Atenolol (Tenormin -) 100 mg PO BID [facility] Last Admin: 07/28/17 11:17 Dose: 100 mg Atorvastatin Calcium (Lipitor -) 80 mg PO HS [facility] Last Admin: 07/27/17 21:33 Dose: 80 mg Bacitracin (Bacitracin -) 1 applic TP DAILY [facility] Last Admin: 07/28/17 10:25 Dose: Not Given Bisacodyl (Dulcolax -) 10 mg PO DAILY PRN PRN Reason: CONSTIPATION Colchicine (Colcrys -) 0.6 mg PO DAILY [facility] Last Admin: 07/28/17 11:17 Dose: 0.6 mg Collagenase (Santyl -) 1 applic TP DAILY [facility] Last Admin: 07/28/17 11:28 Dose: 1 applic Docusate Sodium (Colace -) 100 mg PO Q8H PRN PRN Reason: CONSTIPATION Febuxostat (Uloric -) 40 mg PO DAILY [facility] Last Admin: 07/28/17 11:16 Dose: 40 mg Furosemide (Lasix Injection -) 80 mg IVPUSH DAILY [facility] Last Admin: 07/28/17 11:18 Dose: 80 mg Glipizide (Glucotrol Xl -) 10 mg PO BID [facility] Last Admin: 07/28/17 11:17 Dose: 10 mg IV Flush (Picc Line Flush) 8 ml IVPUSH PRN PRN PRN Reason: Protocol Vancomycin HCl 1,000 mg/ (Dextrose) 250 mls @ 200 mls/hr IVPB Q24H NEIL PRN Reason: Protocol Last Admin: 07/26/17 17:57 Dose: 200 mls/hr Ceftazidime 1 gm/ Dextrose 50 mls @ 100 mls/hr IVPB Q8H-IV [facility] Last Admin: 07/28/17 11:28 Dose: 100 mls/hr Vancomycin HCl (Vancomycin 1 Gm Premix -) 1 gm in 200 mls @ 133.333 mls/hr IVPB ONCE ONE Stop: 07/28/17 16:29 Last Admin: 07/28/17 14:56 Dose: 133.333 mls/hr Insulin Aspart (Novolog Vial Sliding Scale -) 1 vial SQ ACHS [facility] PRN Reason: Protocol Last Admin: 07/28/17 11:28 Dose: 2 units Insulin Detemir (Levemir Vial) 80 units SQ DAILY@0700 [facility] Last Admin: 07/28/17 06:39 Dose: 80 units Levothyroxine Sodium (Synthroid -) 100 mcg PO DAILY@0700 [facility] Last Admin: 07/28/17 06:21 Dose: 100 mcg Liraglutide (Victoza -) 1.8 mg SQ DAILY@0700 [facility] Last Admin: 07/28/17 06:40 Dose: 1.8 mg Morphine Sulfate (Morphine Sulfate) 2 mg IVPB Q4H PRN PRN Reason: PAIN LEVEL 6-10 Last Admin: 07/27/17 14:57 Dose: 2 mg Oxycodone HCl (Roxicodone -) 10 mg PO Q4H PRN PRN Reason: PAIN 1-5 Last Admin: 07/28/17 11:27 Dose: 10 mg Polyethylene Glycol (Miralax (For Daily Use) -) 17 gm PO BID [facility] Last Admin: 07/28/17 11:18 Dose: 17 grams Rivaroxaban (Xarelto -) 15 mg PO DAILY@1800 [facility] Last Admin: 07/27/17 17:37 Dose: 15 mg - Objective Vital Signs: Vital Signs Temperature 98.6 F 07/28/17 14:30 Pulse Rate 85 07/28/17 14:30 Respiratory Rate 20 07/28/17 08:00 Blood Pressure 93/58 07/28/17 14:30 O2 Sat by Pulse Oximetry (%) 98 07/28/17 09:00 Constitutional: Yes: Calm, Obese Eyes: Yes: WNL HENT: Yes: WNL Neck: Yes: WNL Cardiovascular: Yes: Pulse Irregular, S1, S2 Gastrointestinal: Yes: Normal Bowel Sounds, Soft Extremities: Yes: Other (lle in cast) Edema: Yes Labs: CBC, BMP 07/28/17 06:40 07/28/17 06:40 INR, PTT INR 1.32 (0.82-1.09) H 07/20/17 06:30 Problem List - Problems (1) Accident due to mechanical fall without injury Code(s): W19.XXXA - UNSPECIFIED FALL, INITIAL ENCOUNTER (2) Atrial fibrillation Code(s): I48.91 - UNSPECIFIED ATRIAL FIBRILLATION Qualifiers: Atrial fibrillation type: chronic Qualified Code(s): I48.2 - Chronic atrial fibrillation (3) CAD (coronary artery disease) Code(s): I25.10 - ATHSCL HEART DISEASE OF [place] CORONARY ARTERY W/O ANG PCTRS (4) CHF (congestive heart failure) Code(s): I50.9 - HEART FAILURE, UNSPECIFIED (5) DVT (deep venous thrombosis) Code(s): I82.409 - ACUTE EMBOLISM AND THOMBOS UNSP DEEP VN UNSP LOWER EXTREMITY Qualifiers: DVT location: lower extremity Affected thrombotic vein of extremity: femoral Chronicity: chronic Laterality: right Qualified Code(s): I82.511 - Chronic embolism and thrombosis of right femoral vein (6) Obesities, morbid Code(s): E66.01 - MORBID (SEVERE) OBESITY DUE TO EXCESS CALORIES (7) Pulmonary embolism Code(s): I26.99 - OTHER PULMONARY EMBOLISM WITHOUT ACUTE COR PULMONALE (8) Venous (peripheral) insufficiency Code(s): I87.2 - VENOUS INSUFFICIENCY (CHRONIC) (PERIPHERAL) (9) Sleep apnea Code(s): G47.30 - SLEEP APNEA, UNSPECIFIED (10) COPD (chronic obstructive pulmonary disease) Code(s): J44.9 - CHRONIC OBSTRUCTIVE PULMONARY DISEASE, UNSPECIFIED (11) Pulmonary HTN Code(s): I27.20 - PULMONARY HYPERTENSION, UNSPECIFIED (12) Dyspnea Code(s): R06.00 - DYSPNEA, UNSPECIFIED (13) Cellulitis Code(s): L03.90 - CELLULITIS, UNSPECIFIED Assessment/Plan IMP CELLULITIS S/P MECHANICAL FALL CHF ASHD S/P PCI OSAS AFIB H/O DVT/PE PULMONARY HTN MORBID OBESITY CKD PLAN LASIX O2 ABX PER ID INHALED BRONCHODILATORS BIPAP AT NIGHT AC MONITOR LYTES,RENAL FUNCTION DR MACHADO Problem List - Problems (1) Accident due to mechanical fall without injury Code(s): W19.XXXA - UNSPECIFIED FALL, INITIAL ENCOUNTER (2) Atrial fibrillation Code(s): I48.91 - UNSPECIFIED ATRIAL FIBRILLATION Qualifiers: Atrial fibrillation type: chronic Qualified Code(s): I48.2 - Chronic atrial fibrillation (3) CAD (coronary artery disease) Code(s): I25.10 - ATHSCL HEART DISEASE OF [place] CORONARY ARTERY W/O ANG PCTRS (4) CHF (congestive heart failure) Code(s): I50.9 - HEART FAILURE, UNSPECIFIED (5) DVT (deep venous thrombosis) Code(s): I82.409 - ACUTE EMBOLISM AND THOMBOS UNSP DEEP VN UNSP LOWER EXTREMITY Qualifiers: DVT location: lower extremity Affected thrombotic vein of extremity: femoral Chronicity: chronic Laterality: right Qualified Code(s): I82.511 - Chronic embolism and thrombosis of right femoral vein (6) Obesities, morbid Code(s): E66.01 - MORBID (SEVERE) OBESITY DUE TO EXCESS CALORIES (7) Pulmonary embolism Code(s): I26.99 - OTHER PULMONARY EMBOLISM WITHOUT ACUTE COR PULMONALE (8) Venous (peripheral) insufficiency Code(s): I87.2 - VENOUS INSUFFICIENCY (CHRONIC) (PERIPHERAL) (9) Sleep apnea Code(s): G47.30 - SLEEP APNEA, UNSPECIFIED (10) COPD (chronic obstructive pulmonary disease) Code(s): J44.9 - CHRONIC OBSTRUCTIVE PULMONARY DISEASE, UNSPECIFIED (11) Pulmonary HTN Code(s): I27.20 - PULMONARY HYPERTENSION, UNSPECIFIED (12) Dyspnea Code(s): R06.00 - DYSPNEA, UNSPECIFIED (13) Cellulitis Code(s): L03.90 - CELLULITIS, UNSPECIFIED
[2017-07-28] MEDS: RIVAROXABAN 15 MG TABLET PO SCH (17:32)
[2017-07-28] MEDS: ATORVASTATIN CA 80 MG TABLET (FP) PO SCH (21:57)
[2017-07-29] MEDS: CEFTAZIDIME PENTAHYDRATE 1 GM in DEXTROSE 5%-WATER - 50 ML IVPB SCH ×2 (01:24→10:19)
[2017-07-29] MEDS: oxyCODONE HCL 5 MG TABLET PO PRN ×3 (04:07→14:21)
[2017-07-29] MEDS: ALBUTEROL SO4 2.5/IPRATROPIUM 0.5 INH SOL 3 ML VIAL.NEB. NEB PRN ×3 (05:00→14:22)
[2017-07-29] MEDS: INSULIN (LEVEMIR) 100 UNITS/ML UNITS SQ SCH (06:31)
[2017-07-29] MEDS: INSULIN SLIDING SCALE (NOVOLOG) 1 VIAL SQ SCH ×2 (06:32→12:30)
[2017-07-29] MEDS: LEVOTHYROXINE NA 100 MCG TABLET (FP) PO SCH (06:32)
[2017-07-29] MEDS: LIRAGLUTIDE 0.6 MG/0.1 ML PEN.INJCTR SQ SCH (06:33)
[2017-07-29] MEDS ORDERED: PT OWN MED DRAWER 7, Y5N ONE ×3 (06:42→10:56)
[2017-07-29 07:50] LABS: ANION GAP 9 (8-16); BLOOD UREA NITROGEN 58 mg/dL (7-18); CALCIUM 8.6 mg/dL (8.5-10.1); CHLORIDE 105 mmol/L (98-107); CO2 28 mmol/L (21-32); GLUCOSE,RANDOM 162 mg/dL (74-106); POTASSIUM 4.3 mmol/L (3.5-5.1); SODIUM 142 mmol/L (136-145)
--- NOTE | 2017-07-29 08:10 | PN ---
Progress Note, Physician Chief Complaint: No BM yesterday, no new complaints, resting comfortably on BIPAP in bed History of Present Illness: Morbid obesity. ASHLEY. Bilateral PE. Pulmonary HTN-CTEPH AND CLASS 2 PAH. CHF-mostly diastolic. ASHD. STEMI in 2016 with MICHAEL x2 placed at [place]. Chronic A.Fib-on a/c-Xarelto/ASA now. Gout. Gouty arthritis CKD 2-3 DM type 2. Chronic DVT Right thigh, Stasis ulcers, edema. Chronic wound right Ankle/dobbs-RX at [facility]-groing multiple organisms. - Current Medication List Current Medications: Active Medications Acetaminophen (Tylenol -) 650 mg PO Q8H PRN PRN Reason: FEVER Last Admin: 07/27/17 13:31 Dose: 650 mg Acetaminophen (Tylenol -) 650 mg PO Q6H PRN PRN Reason: PAIN LEVEL 6-10 Last Admin: 07/25/17 00:16 Dose: 650 mg Albuterol/Ipratropium (Duoneb -) 1 amp NEB Q4H PRN PRN Reason: SHORTNESS OF BREATH Last Admin: 07/29/17 05:00 Dose: 1 amp Aspirin (Asa -) 81 mg PO DAILY [facility] Last Admin: 07/28/17 11:18 Dose: 81 mg Atenolol (Tenormin -) 100 mg PO BID [facility] Last Admin: 07/28/17 21:58 Dose: 100 mg Atorvastatin Calcium (Lipitor -) 80 mg PO HS [facility] Last Admin: 07/28/17 21:57 Dose: 80 mg Bacitracin (Bacitracin -) 1 applic TP DAILY [facility] Last Admin: 07/28/17 10:25 Dose: Not Given Bisacodyl (Dulcolax -) 10 mg PO DAILY PRN PRN Reason: CONSTIPATION Colchicine (Colcrys -) 0.6 mg PO DAILY [facility] Last Admin: 07/28/17 11:17 Dose: 0.6 mg Collagenase (Santyl -) 1 applic TP DAILY [facility] Last Admin: 07/28/17 11:28 Dose: 1 applic Docusate Sodium (Colace -) 100 mg PO Q8H PRN PRN Reason: CONSTIPATION Febuxostat (Uloric -) 40 mg PO DAILY [facility] Last Admin: 07/28/17 11:16 Dose: 40 mg Furosemide (Lasix Injection -) 80 mg IVPUSH DAILY [facility] Last Admin: 07/28/17 11:18 Dose: 80 mg Glipizide (Glucotrol Xl -) 10 mg PO BID [facility] Last Admin: 07/28/17 21:58 Dose: 10 mg IV Flush (Picc Line Flush) 8 ml IVPUSH PRN PRN PRN Reason: Protocol Vancomycin HCl 1,000 mg/ (Dextrose) 250 mls @ 200 mls/hr IVPB Q24H NEIL PRN Reason: Protocol Last Admin: 07/26/17 17:57 Dose: 200 mls/hr Ceftazidime 1 gm/ Dextrose 50 mls @ 100 mls/hr IVPB Q8H-IV [facility] Last Admin: 07/29/17 01:24 Dose: 100 mls/hr Insulin Aspart (Novolog Vial Sliding Scale -) 1 vial SQ ACHS [facility] PRN Reason: Protocol Last Admin: 07/29/17 06:32 Dose: Not Given Insulin Detemir (Levemir Vial) 80 units SQ DAILY@0700 [facility] Last Admin: 07/29/17 06:31 Dose: 80 units Levothyroxine Sodium (Synthroid -) 100 mcg PO DAILY@0700 [facility] Last Admin: 07/29/17 06:32 Dose: 100 mcg Liraglutide (Victoza -) 1.8 mg SQ DAILY@0700 [facility] Last Admin: 07/29/17 06:33 Dose: 1.8 mg Magnesium Citrate (Citroma -) 300 ml PO ONCE ONE Stop: 07/29/17 08:04 Morphine Sulfate (Morphine Sulfate) 2 mg IVPB Q4H PRN PRN Reason: PAIN LEVEL 6-10 Last Admin: 07/27/17 14:57 Dose: 2 mg Oxycodone HCl (Roxicodone -) 10 mg PO Q4H PRN PRN Reason: PAIN 1-5 Last Admin: 07/29/17 04:07 Dose: 10 mg Polyethylene Glycol (Miralax (For Daily Use) -) 17 gm PO BID [facility] Last Admin: 07/28/17 21:58 Dose: 17 grams Rivaroxaban (Xarelto -) 15 mg PO DAILY@1800 [facility] Last Admin: 07/28/17 17:32 Dose: 15 mg - Objective Vital Signs: Vital Signs Temperature 98.6 F 07/29/17 06:09 Pulse Rate 83 07/29/17 06:09 Respiratory Rate 20 07/29/17 06:09 Blood Pressure 114/65 07/29/17 06:09 O2 Sat by Pulse Oximetry (%) 98 07/28/17 20:35 Constitutional: Yes: No Distress, Calm Eyes: Yes: Conjunctiva Clear, EOM Intact. No: Diplopia HENT: Yes: Atraumatic, Normocephalic. No: Drooling, Epistaxis Neck: Yes: Supple, Trachea Midline. No: Decreased ROM, Lymphadenopathy Cardiovascular: Yes: Pulse Irregular (c/w a.fib), S1, S2. No: Rub Respiratory: Yes: CTA Bilaterally. No: Accessory Muscle Use, Bradypnea, Cough Gastrointestinal: Yes: Normal Bowel Sounds, Soft, Abdomen, Obese. No: Ascites, Distention, Hypoactive Bowel Sounds, Palpable Mass, Pulsatile Mass, Tenderness, Tenderness, Rebound, Vomiting ...Rectal Exam: Yes: Deferred Genitourinary: No: Anuria, Bladder Distention Breast(s): Yes: WNL Musculoskeletal: No: Joint Stiffness, Joint Swelling, Muscle Pain Extremities: Yes: Other (left external fixation Right LE with dressings intact) . No: Amputation, Calf Tenderness, Cold Edema: Yes Edema: LLE: 1+, RLE: 1+ Peripheral Pulses WNL: No Neurological: Yes: Alert, Oriented. No: Aphasia, Confusion, Dysarthria, Tremors ...Motor Strength: WNL Psychiatric: Yes: WNL Labs: CBC, BMP 07/28/17 06:40 INR, PTT INR 1.32 (0.82-1.09) H 07/20/17 06:30 Problem List - Problems (1) Atrial fibrillation Assessment/Plan: continue rate control, heparin Code(s): I48.91 - UNSPECIFIED ATRIAL FIBRILLATION Qualifiers: Atrial fibrillation type: chronic Qualified Code(s): I48.2 - Chronic atrial fibrillation (2) CHF (congestive heart failure) Assessment/Plan: OFF UVALDO nephrology consult noted Continue Lasix though noted worsening renal fx Decrease PO fluids intake-restriction 1400 cc Code(s): I50.9 - HEART FAILURE, UNSPECIFIED (3) Cellulitis of right leg Assessment/Plan: Received 7 days of IV Zosyn, will switch to PO-when the w/u for left leg pain- negative for ostheomyelitis. Wound care Apply UVALDO bandages for venous stasis Code(s): L03.115 - CELLULITIS OF RIGHT LOWER LIMB (4) Diabetes Assessment/Plan: Continue Levemir 80 units today-BGM's better controlled. Novolog sliding scale Code(s): E11.9 - TYPE 2 DIABETES MELLITUS WITHOUT COMPLICATIONS Qualifiers: Diabetes mellitus type: type 2 Diabetes mellitus complication status: with circulatory complication (5) Acute renal failure (ARF) Assessment/Plan: Now stable BUN/Cr 58/2.0 Code(s): N17.9 - ACUTE KIDNEY FAILURE, UNSPECIFIED (6) Acute renal insufficiency Assessment/Plan: Acute renal insufficiency in CKD Diff dx [id number] insufficiency, ATN and hypotension due to sepsis and infection. Code(s): N28.9 - DISORDER OF KIDNEY AND URETER, UNSPECIFIED (7) Acute gouty arthritis Assessment/Plan: No gouty arthritis now. Continue Uloric PO Code(s): M10.9 - GOUT, UNSPECIFIED (8) Open left ankle fracture Assessment/Plan: S/p external fixation Ortho f/u Pain management IV ABX per ID Code(s): S82.892B - OTH FRACTURE OF LEFT LOWER LEG, INIT FOR OPN FX TYPE I/2 Qualifiers: Encounter type: initial encounter (9) Constipation by delayed colonic transit Assessment/Plan: Related to use of narcotics and limited mobility in bed. Ordered Citroma today. Continue Miralax, Dulcolax Advised the patient not to refuse taking meds. The patient is reluctant to have enemas-and frequently refusing oral laxatives Took Citroma today as discussed with nurse Richter Continue to encourage and take laxative regimen for constipation. Code(s): K59.01 - SLOW TRANSIT CONSTIPATION
[2017-07-29] MEDS: MAGNESIUM CITRATE 300 ML BOTTLE PO ONE ×2 (08:47→11:55)
[2017-07-29] MEDS: ATENOLOL 50 MG TABLET (FP) PO SCH (10:08)
[2017-07-29] MEDS: FUROSEMIDE 40 MG/4 ML INJECTABLE VIAL IVPUSH SCH (10:10)
[2017-07-29] MEDS: ASPIRIN 81 MG CHEWABLE TABLETS PO SCH (10:10)
[2017-07-29] MEDS: COLCHICINE 0.6 MG TABLET (FP) PO SCH (10:10)
[2017-07-29] MEDS: BACITRACIN 15 GM TUBE TOPICAL OINTMENT TP SCH (10:12)
[2017-07-29] MEDS: POLYETHYLENE GLYCOL 3350 119 GM BTL PO SCH (10:13)
[2017-07-29] MEDS: glipiZIDE-XL 10 MG TAB.ER.24 (FP) PO SCH (10:13)
[2017-07-29] MEDS: FEBUXOSTAT 40 MG TAB PO SCH (10:14)
[2017-07-29] MEDS: COLLAGENASE CLOSTRIDIUM HIST. 30 GRAMS TUBE TP SCH (10:20)
--- NOTE | 2017-07-29 10:49 | DS ---
Physical Examination Vital Signs: Vital Signs Temperature 98.6 F 07/29/17 08:23 Pulse Rate 86 07/29/17 08:23 Respiratory Rate 20 07/29/17 08:23 Blood Pressure 115/57 07/29/17 08:23 O2 Sat by Pulse Oximetry (%) 98 07/28/17 20:35 Findings/Remarks: Patient was treated after fall [employer] for Acute Cellulitis RLE, Chronic infected ulcers Right LE, Severe pulmonary HTN, CTEPH, Acute CHF on chronic, AFIB, ACUTE renal insufficiency on chronic, DM type 2, acute gouty arthritis LLE. During hospitalization the patient had afall that resulted in left ankle fracture. He underwent open reduction of the left ankle. Postoperatively he required pain meds and still requires RTC pain management. Constipation needs to be followed due to slow transit. The patient is getting PICC line to comlete IV Ceftazidime/Vanco. Vanco levels need to be followed. He should continue BIPAP-nasal at nights and PRN for ASHLEY and Morbid obesity. Ortho f/u by Dr Thayer His condition remains guardered due to multiple morbidities and prognosis is guarded at this time Constitutional: Yes: Mild Distress, Obese Eyes: Yes: Conjunctiva Clear, EOM Intact HENT: Yes: Atraumatic, Normocephalic. No: Drooling, Epistaxis Neck: Yes: Supple, Trachea Midline. No: Lymphadenopathy Cardiovascular: Yes: Pulse Irregular, S1, S2. No: Bradycardia, Tachycardia Respiratory: Yes: Regular, CTA Bilaterally, On BiPap, On Nasal O2, SOB. No: Accessory Muscle Use, Rales, Rhonchi Gastrointestinal: Yes: Normal Bowel Sounds, Soft. No: Abdomen, Obese, Ascites, Hyperactive Bowel Sounds, Hypoactive Bowel Sounds, Palpable Mass, Tenderness, Tenderness, Epigastrium, Tenderness, Rebound, Vomiting ...Rectal Exam: Yes: Deferred Renal/: No: Anuria, Bladder Distention Breast(s): Yes: WNL Musculoskeletal: No: Joint Stiffness, Joint Swelling Extremities: Yes: Other (Left external fixator). No: Calf Tenderness, Cold, Cyanosis Edema: Yes Edema: LLE: 1+, RLE: 1+ Peripheral Pulses WNL: No Integumentary: Yes: Other (Right ankle wounds) Neurological: Yes: Alert, Oriented. No: Aphasia, Ataxia, Confusion, Dysarthria , Lethargy, Seizure, Unresponsive ...Motor Strength: WNL Psychiatric: Yes: WNL Labs: CBC, BMP 07/28/17 06:40 07/29/17 06:20 Discharge Summary Reason For Visit: RLE cellulitis, ISSA, CHF, Current Active Problems Accident due to mechanical fall without injury (Acute) Acute gouty arthritis (Acute) Acute renal failure (ARF) (Acute) Acute renal insufficiency (Acute) CKD (chronic kidney disease) (Acute) COPD (chronic obstructive pulmonary disease) (Acute) Cellulitis (Acute) Constipation by delayed colonic transit (Acute) Dyspnea (Acute) Hyperkalemia, diminished renal excretion (Acute) Open left ankle fracture (Acute) Pain of left lower leg (Acute) Pulmonary HTN (Acute) Sleep apnea (Acute) Hospital Course: Left ankle fracture-External fixation Condition: Guarded - Instructions Diet, Activity, Other Instructions: 1800 ADA, low salt, low fat Referrals: Keyon Hudson MD [Primary Care Provider] - Disposition: RETIREMENT FACILITY - Home Medications Comprehensive Discharge Medication List: Ambulatory Orders Oxycodone HCl/Acetaminophen [Percocet 5-325 mg Tablet] 2 combo PO HS PRN Furosemide [Lasix -] 80 mg PO BID@0600,1800 #0 tablet 12/14/11 Glipizide [Glipizide Xl] 10 mg PO BID 02/27/13 Insulin Glargine,Hum.rec.anlog [Lantus Solostar PEN -] 80 unit SQ DAILY Levothyroxine [Synthroid -] 100 mcg PO DAILY 01/26/14 Atorvastatin Ca [Lipitor] 80 mg PO HS 09/05/15 Atenolol 100 mg PO BID 07/24/16 Mupirocin Cream [Bactroban 2% Cream -] 1 applic TP DAILY #1 tube 11/20/16 Collagenase Clostridium Hist. [Santyl] 1 applic TP DAILY #90 oint...g. 06/14/17 Liraglutide [Victoza -] 1.8 mg SQ DAILY@0700 07/11/17 Febuxostat [Uloric -] 40 mg PO DAILY tab 07/26/17 Insulin Sliding Scale [Novolog Vial Sliding Scale -] 1 vial SQ ACHS units 07/26 Rivaroxaban [Xarelto -] 15 mg PO DAILY@1800 tablet 07/26/17 Ceftazidime Pentahydrate [Fortaz (Restricted To Id) -] 1 gm IVPB Q8H-IV vial Vancomycin 1,000 mg IVPB Q24H vial 07/27/17 oxyCODONE HCL [Roxicodone -] 10 mg PO Q4H PRN #120 tablet MDD 60 07/28/17 Bisacodyl [Bisacodyl -] 10 mg PO DAILY PRN tablet. 07/29/17 Linaclotide [Linzess] 290 mcg PO DAILY #30 cap 07/29/17 Polyethylene Glycol 3350 [Miralax 119 gm Btl -] 17 gm PO BID bottle 07/29/17
--- NOTE | 2017-07-29 11:56 | PN ---
Progress Note (short form) - Note Progress Note: PULMONARY Denies shortness of breath, cough or wheezing. Using his home BiPAP at night. Last Vital Signs Temp Pulse Resp BP Pulse Ox 98.6 F 86 20 115/57 98 07/29/17 08:23 07/29/17 08:23 07/29/17 08:23 07/29/17 08:23 07/28/17 20:35 Gen: NAD at rest Heart: RRR Lung: distant breath sounds Abd: soft, nontender Ext: chronic changes, dressings without drainage CBC, BMP 07/28/17 06:40 07/29/17 06:20 Active Medications Acetaminophen (Tylenol -) 650 mg PO Q8H PRN PRN Reason: FEVER Last Admin: 07/27/17 13:31 Dose: 650 mg Acetaminophen (Tylenol -) 650 mg PO Q6H PRN PRN Reason: PAIN LEVEL 6-10 Last Admin: 07/25/17 00:16 Dose: 650 mg Albuterol/Ipratropium (Duoneb -) 1 amp NEB Q4H PRN PRN Reason: SHORTNESS OF BREATH Last Admin: 07/29/17 05:00 Dose: 1 amp Aspirin (Asa -) 81 mg PO DAILY [facility] Last Admin: 07/29/17 10:10 Dose: 81 mg Atenolol (Tenormin -) 100 mg PO BID [facility] Last Admin: 07/29/17 10:08 Dose: 100 mg Atorvastatin Calcium (Lipitor -) 80 mg PO HS [facility] Last Admin: 07/28/17 21:57 Dose: 80 mg Bacitracin (Bacitracin -) 1 applic TP DAILY [facility] Last Admin: 07/29/17 10:12 Dose: Not Given Bisacodyl (Dulcolax -) 10 mg PO DAILY PRN PRN Reason: CONSTIPATION Last Admin: 07/29/17 08:47 Dose: 10 mg Colchicine (Colcrys -) 0.6 mg PO DAILY [facility] Last Admin: 07/29/17 10:10 Dose: 0.6 mg Collagenase (Santyl -) 1 applic TP DAILY [facility] Last Admin: 07/29/17 10:20 Dose: 1 applic Docusate Sodium (Colace -) 100 mg PO Q8H PRN PRN Reason: CONSTIPATION Febuxostat (Uloric -) 40 mg PO DAILY [facility] Last Admin: 07/29/17 10:14 Dose: 40 mg Furosemide (Lasix Injection -) 80 mg IVPUSH DAILY [facility] Last Admin: 07/29/17 10:10 Dose: 80 mg Glipizide (Glucotrol Xl -) 10 mg PO BID [facility] Last Admin: 07/29/17 10:13 Dose: 10 mg IV Flush (Picc Line Flush) 8 ml IVPUSH PRN PRN PRN Reason: Protocol Vancomycin HCl 1,000 mg/ (Dextrose) 250 mls @ 200 mls/hr IVPB Q24H [facility]IL PRN Reason: Protocol Last Admin: 07/26/17 17:57 Dose: 200 mls/hr Ceftazidime 1 gm/ Dextrose 50 mls @ 100 mls/hr IVPB Q8H-IV [facility] Last Admin: 07/29/17 10:19 Dose: 100 mls/hr Insulin Aspart (Novolog Vial Sliding Scale -) 1 vial SQ ACHS [facility] PRN Reason: Protocol Last Admin: 07/29/17 06:32 Dose: Not Given Insulin Detemir (Levemir Vial) 80 units SQ DAILY@0700 [facility] Last Admin: 07/29/17 06:31 Dose: 80 units Levothyroxine Sodium (Synthroid -) 100 mcg PO DAILY@0700 [facility] Last Admin: 07/29/17 06:32 Dose: 100 mcg Liraglutide (Victoza -) 1.8 mg SQ DAILY@0700 [facility] Last Admin: 07/29/17 06:33 Dose: 1.8 mg Morphine Sulfate (Morphine Sulfate) 2 mg IVPB Q4H PRN PRN Reason: PAIN LEVEL 6-10 Last Admin: 07/27/17 14:57 Dose: 2 mg Oxycodone HCl (Roxicodone -) 10 mg PO Q4H PRN PRN Reason: PAIN 1-5 Last Admin: 07/29/17 08:46 Dose: 10 mg Polyethylene Glycol (Miralax (For Daily Use) -) 17 gm PO BID [facility] Last Admin: 07/29/17 10:13 Dose: 17 grams Rivaroxaban (Xarelto -) 15 mg PO DAILY@1800 [facility] Last Admin: 07/28/17 17:32 Dose: 15 mg A/P Cellulitis Left Ankle Fracture Morbid Obesity ASHLEY Atrial Fibrillation CAD h/o DVT/PE CKD - antibiotics per ID - BiPAP at night 09/10 - inhaled bronchodilators - O2 to keep SpO2 >90% - continue anticoagulation - d/c planning
--- NOTE | 2017-07-29 14:10 | PN ---
Progress Note, Physician History of Present Illness: clinically patient is stable no complaints in the room - Current Medication List Current Medications: Active Medications Acetaminophen (Tylenol -) 650 mg PO Q8H PRN PRN Reason: FEVER Last Admin: 07/27/17 13:31 Dose: 650 mg Acetaminophen (Tylenol -) 650 mg PO Q6H PRN PRN Reason: PAIN LEVEL 6-10 Last Admin: 07/25/17 00:16 Dose: 650 mg Albuterol/Ipratropium (Duoneb -) 1 amp NEB Q4H PRN PRN Reason: SHORTNESS OF BREATH Last Admin: 07/29/17 05:00 Dose: 1 amp Aspirin (Asa -) 81 mg PO DAILY [facility] Last Admin: 07/29/17 10:10 Dose: 81 mg Atenolol (Tenormin -) 100 mg PO BID [facility] Last Admin: 07/29/17 10:08 Dose: 100 mg Atorvastatin Calcium (Lipitor -) 80 mg PO HS [facility] Last Admin: 07/28/17 21:57 Dose: 80 mg Bacitracin (Bacitracin -) 1 applic TP DAILY [facility] Last Admin: 07/29/17 10:12 Dose: Not Given Bisacodyl (Dulcolax -) 10 mg PO DAILY PRN PRN Reason: CONSTIPATION Last Admin: 07/29/17 08:47 Dose: 10 mg Colchicine (Colcrys -) 0.6 mg PO DAILY [facility] Last Admin: 07/29/17 10:10 Dose: 0.6 mg Collagenase (Santyl -) 1 applic TP DAILY [facility] Last Admin: 07/29/17 10:20 Dose: 1 applic Docusate Sodium (Colace -) 100 mg PO Q8H PRN PRN Reason: CONSTIPATION Febuxostat (Uloric -) 40 mg PO DAILY [facility] Last Admin: 07/29/17 10:14 Dose: 40 mg Furosemide (Lasix Injection -) 80 mg IVPUSH DAILY [facility] Last Admin: 07/29/17 10:10 Dose: 80 mg Glipizide (Glucotrol Xl -) 10 mg PO BID [facility] Last Admin: 07/29/17 10:13 Dose: 10 mg IV Flush (Picc Line Flush) 8 ml IVPUSH PRN PRN PRN Reason: Protocol Vancomycin HCl 1,000 mg/ (Dextrose) 250 mls @ 200 mls/hr IVPB Q24H [facility] PRN Reason: Protocol Last Admin: 07/26/17 17:57 Dose: 200 mls/hr Ceftazidime 1 gm/ Dextrose 50 mls @ 100 mls/hr IVPB Q8H-IV [facility] Last Admin: 07/29/17 10:19 Dose: 100 mls/hr Insulin Aspart (Novolog Vial Sliding Scale -) 1 vial SQ ACHS [facility] PRN Reason: Protocol Last Admin: 07/29/17 12:30 Dose: Not Given Insulin Detemir (Levemir Vial) 80 units SQ DAILY@0700 [facility] Last Admin: 07/29/17 06:31 Dose: 80 units Levothyroxine Sodium (Synthroid -) 100 mcg PO DAILY@0700 [facility] Last Admin: 07/29/17 06:32 Dose: 100 mcg Liraglutide (Victoza -) 1.8 mg SQ DAILY@0700 [facility] Last Admin: 07/29/17 06:33 Dose: 1.8 mg Morphine Sulfate (Morphine Sulfate) 2 mg IVPB Q4H PRN PRN Reason: PAIN LEVEL 6-10 Last Admin: 07/27/17 14:57 Dose: 2 mg Oxycodone HCl (Roxicodone -) 10 mg PO Q4H PRN PRN Reason: PAIN 1-5 Last Admin: 07/29/17 08:46 Dose: 10 mg Polyethylene Glycol (Miralax (For Daily Use) -) 17 gm PO BID [facility] Last Admin: 07/29/17 10:13 Dose: 17 grams Rivaroxaban (Xarelto -) 15 mg PO DAILY@1800 [facility] Last Admin: 07/28/17 17:32 Dose: 15 mg - Objective Vital Signs: Vital Signs Temperature 98.6 F 07/29/17 08:23 Pulse Rate 86 07/29/17 08:23 Respiratory Rate 20 07/29/17 08:23 Blood Pressure 115/57 07/29/17 08:23 O2 Sat by Pulse Oximetry (%) 98 07/28/17 20:35 Constitutional: Yes: No Distress, Calm, Obese Cardiovascular: Yes: Regular Rate and Rhythm Respiratory: Yes: Regular, On BiPap, On Nasal O2, Other Gastrointestinal: Yes: Normal Bowel Sounds, Soft Musculoskeletal: Yes: Other Extremities: Yes: Other Wound/Incision: Yes: Dressing Dry and Intact, Other (fixators in place) Neurological: Yes: Alert, Oriented Psychiatric: Yes: Alert, Oriented Labs: CBC, BMP 07/28/17 06:40 07/29/17 06:20 INR, PTT INR 1.32 (0.82-1.09) H 07/20/17 06:30 Assessment/Plan Problem List - Problems (1) Accident due to mechanical fall without injury Code(s): W19.XXXA - UNSPECIFIED FALL, INITIAL ENCOUNTER (2) Atrial fibrillation Code(s): I48.91 - UNSPECIFIED ATRIAL FIBRILLATION Qualifiers: Atrial fibrillation type: chronic Qualified Code(s): I48.2 - Chronic atrial fibrillation (3) CAD (coronary artery disease) Code(s): I25.10 - ATHSCL HEART DISEASE OF [place] CORONARY ARTERY W/O ANG PCTRS (4) CHF (congestive heart failure) Code(s): I50.9 - HEART FAILURE, UNSPECIFIED (5) DVT (deep venous thrombosis) Code(s): I82.409 - ACUTE EMBOLISM AND THOMBOS UNSP DEEP VN UNSP LOWER EXTREMITY Qualifiers: DVT location: lower extremity Affected thrombotic vein of extremity: femoral Chronicity: chronic Laterality: right Qualified Code(s): I82.511 - Chronic embolism and thrombosis of right femoral vein (6) Obesities, morbid Code(s): E66.01 - MORBID (SEVERE) OBESITY DUE TO EXCESS CALORIES (7) Pulmonary embolism Code(s): I26.99 - OTHER PULMONARY EMBOLISM WITHOUT ACUTE COR PULMONALE (8) Venous (peripheral) insufficiency Code(s): I87.2 - VENOUS INSUFFICIENCY (CHRONIC) (PERIPHERAL) (9) Sleep apnea Code(s): G47.30 - SLEEP APNEA, UNSPECIFIED (10) COPD (chronic obstructive pulmonary disease) Code(s): J44.9 - CHRONIC OBSTRUCTIVE PULMONARY DISEASE, UNSPECIFIED (11) Pulmonary HTN Code(s): I27.20 - PULMONARY HYPERTENSION, UNSPECIFIED (12) Dyspnea Code(s): R06.00 - DYSPNEA, UNSPECIFIED (13) Cellulitis Code(s): L03.90 - CELLULITIS, UNSPECIFIED 14) wound infection 15 leukocytosis 16 compound fracture left ankle plan continue abx 10 days more wound care rest as per the team ortho to follow close watch
[2017-07-29] MEDS: VANCOMYCIN 1,000 MG in DEXTROSE 5%-WATER - 250 ML IVPB SCH (14:21)
[2017-07-29 14:44] VITALS: BP 115/67; PULSE 90; TEMP 97.6
--- NOTE | 2017-07-29 15:51 | PN ---
Progress Note, Physician History of Present Illness: Pt seen and examined at bedside. He is awake and alert. He denies shortness of breath. - Current Medication List Current Medications: Active Medications Acetaminophen (Tylenol -) 650 mg PO Q8H PRN PRN Reason: FEVER Last Admin: 07/27/17 13:31 Dose: 650 mg Acetaminophen (Tylenol -) 650 mg PO Q6H PRN PRN Reason: PAIN LEVEL 6-10 Last Admin: 07/25/17 00:16 Dose: 650 mg Albuterol/Ipratropium (Duoneb -) 1 amp NEB Q4H PRN PRN Reason: SHORTNESS OF BREATH Last Admin: 07/29/17 14:22 Dose: 1 amp Aspirin (Asa -) 81 mg PO DAILY [facility] Last Admin: 07/29/17 10:10 Dose: 81 mg Atenolol (Tenormin -) 100 mg PO BID [facility] Last Admin: 07/29/17 10:08 Dose: 100 mg Atorvastatin Calcium (Lipitor -) 80 mg PO HS [facility] Last Admin: 07/28/17 21:57 Dose: 80 mg Bacitracin (Bacitracin -) 1 applic TP DAILY [facility] Last Admin: 07/29/17 10:12 Dose: Not Given Bisacodyl (Dulcolax -) 10 mg PO DAILY PRN PRN Reason: CONSTIPATION Last Admin: 07/29/17 08:47 Dose: 10 mg Colchicine (Colcrys -) 0.6 mg PO DAILY [facility] Last Admin: 07/29/17 10:10 Dose: 0.6 mg Collagenase (Santyl -) 1 applic TP DAILY [facility] Last Admin: 07/29/17 10:20 Dose: 1 applic Docusate Sodium (Colace -) 100 mg PO Q8H PRN PRN Reason: CONSTIPATION Febuxostat (Uloric -) 40 mg PO DAILY [facility] Last Admin: 07/29/17 10:14 Dose: 40 mg Furosemide (Lasix Injection -) 80 mg IVPUSH DAILY [facility] Last Admin: 07/29/17 10:10 Dose: 80 mg Glipizide (Glucotrol Xl -) 10 mg PO BID [facility] Last Admin: 07/29/17 10:13 Dose: 10 mg IV Flush (Picc Line Flush) 8 ml IVPUSH PRN PRN PRN Reason: Protocol Vancomycin HCl 1,000 mg/ (Dextrose) 250 mls @ 200 mls/hr IVPB Q24H [facility] PRN Reason: Protocol Last Admin: 07/29/17 14:21 Dose: 200 mls/hr Ceftazidime 1 gm/ Dextrose 50 mls @ 100 mls/hr IVPB Q8H-IV [facility] Last Admin: 07/29/17 10:19 Dose: 100 mls/hr Insulin Aspart (Novolog Vial Sliding Scale -) 1 vial SQ ACHS [facility] PRN Reason: Protocol Last Admin: 07/29/17 12:30 Dose: Not Given Insulin Detemir (Levemir Vial) 80 units SQ DAILY@0700 [facility] Last Admin: 07/29/17 06:31 Dose: 80 units Levothyroxine Sodium (Synthroid -) 100 mcg PO DAILY@0700 [facility] Last Admin: 07/29/17 06:32 Dose: 100 mcg Liraglutide (Victoza -) 1.8 mg SQ DAILY@0700 [facility] Last Admin: 07/29/17 06:33 Dose: 1.8 mg Morphine Sulfate (Morphine Sulfate) 2 mg IVPB Q4H PRN PRN Reason: PAIN LEVEL 6-10 Last Admin: 07/27/17 14:57 Dose: 2 mg Oxycodone HCl (Roxicodone -) 10 mg PO Q4H PRN PRN Reason: PAIN 1-5 Last Admin: 07/29/17 14:21 Dose: 10 mg Polyethylene Glycol (Miralax (For Daily Use) -) 17 gm PO BID [facility] Last Admin: 07/29/17 10:13 Dose: 17 grams Rivaroxaban (Xarelto -) 15 mg PO DAILY@1800 [facility] Last Admin: 07/28/17 17:32 Dose: 15 mg - Objective Vital Signs: Vital Signs Temperature 97.6 F 07/29/17 14:43 Pulse Rate 90 07/29/17 14:43 Respiratory Rate 20 07/29/17 08:23 Blood Pressure 115/67 07/29/17 14:43 O2 Sat by Pulse Oximetry (%) 98 07/28/17 20:35 Constitutional: Yes: Calm Eyes: Yes: Conjunctiva Clear HENT: Yes: Atraumatic Neck: Yes: Supple Cardiovascular: Yes: S1, S2 Respiratory: Yes: CTA Bilaterally Gastrointestinal: Yes: Soft, Abdomen, Obese Genitourinary: Yes: WNL Musculoskeletal: Yes: Other (external fixation) Edema: Yes Edema: LLE: 2+, RLE: 2+ Neurological: Yes: Oriented Psychiatric: Yes: Oriented Labs: CBC, BMP 07/28/17 06:40 07/29/17 06:20 INR, PTT INR 1.32 (0.82-1.09) H 07/20/17 06:30 Problem List - Problems (1) CKD (chronic kidney disease) Code(s): N18.9 - CHRONIC KIDNEY DISEASE, UNSPECIFIED (2) Accident due to mechanical fall without injury Code(s): W19.XXXA - UNSPECIFIED FALL, INITIAL ENCOUNTER (3) Acute renal failure (ARF) Code(s): N17.9 - ACUTE KIDNEY FAILURE, UNSPECIFIED Assessment/Plan Current Medications Generic Name Dose Route Start Last Admin Trade Name Freq PRN Reason Stop Dose Admin Acetaminophen 650 mg 07/12/17 08:03 07/27/17 13:31 Tylenol - PO 650 mg Q8H PRN Administration FEVER Acetaminophen 650 mg 07/23/17 11:46 07/25/17 00:16 Tylenol - PO 650 mg Q6H PRN Administration PAIN LEVEL 6-10 Albuterol/Ipratropium 1 amp 07/21/17 13:45 07/29/17 14:22 Duoneb - NEB 1 amp Q4H PRN Administration SHORTNESS OF BREATH Aspirin 81 mg 07/20/17 10:00 07/29/17 10:10 Asa - PO 81 mg DAILY [facility]IL Administration Atenolol 100 mg 07/12/17 10:00 07/29/17 10:08 Tenormin - PO 100 mg BID [facility]IL Administration Atorvastatin Calcium 80 mg 07/12/17 22:00 07/28/17 21:57 Lipitor - PO 80 mg HS NEIL Administration Bacitracin 1 applic 07/14/17 17:15 07/29/17 10:12 Bacitracin - TP Not Given DAILY [facility] Bisacodyl 10 mg 07/28/17 08:12 07/29/17 08:47 Dulcolax - PO 10 mg DAILY PRN Administration CONSTIPATION Colchicine 0.6 mg 07/19/17 10:00 07/29/17 10:10 Colcrys - PO 0.6 mg DAILY [facility] Administration Collagenase 1 applic 07/12/17 10:00 07/29/17 10:20 Santyl - TP 1 applic DAILY [facility] Administration Docusate Sodium 100 mg 07/25/17 18:46 Colace - PO Q8H PRN CONSTIPATION Febuxostat 40 mg 07/21/17 10:00 07/29/17 10:14 Uloric - PO 40 mg DAILY [facility] Administration Furosemide 80 mg 07/23/17 10:00 07/29/17 10:10 Lasix Injection - IVPUSH 80 mg DAILY [facility] Administration Glipizide 10 mg 07/12/17 10:00 07/29/17 10:13 Glucotrol Xl - PO 10 mg BID [facility]IL Administration IV Flush 8 ml 07/27/17 13:01 Picc Line Flush IVPUSH PRN PRN Protocol Vancomycin HCl 1,000 mg/ 250 mls @ 200 mls/hr 07/17/17 15:00 07/29/17 14:21 Dextrose IVPB 200 mls/hr Q24H [facility] Administration Protocol Ceftazidime 1 gm/ Dextrose 50 mls @ 100 mls/hr 07/19/17 13:45 07/29/17 10:19 IVPB 100 mls/hr Q8H-IV [facility] Administration Insulin Aspart 1 vial 07/14/17 11:15 07/29/17 12:30 Novolog Vial Sliding Scale - SQ Not Given ACHS [facility] Protocol Insulin Detemir 80 units 07/22/17 07:00 07/29/17 06:31 Levemir Vial SQ 80 units DAILY@0700 [facility] Administration Levothyroxine Sodium 100 mcg 07/12/17 07:00 07/29/17 06:32 Synthroid - PO 100 mcg DAILY@0700 [facility] Administration Liraglutide 1.8 mg 07/13/17 07:00 07/29/17 06:33 Victoza - SQ 1.8 mg DAILY@0700 [facility] Administration Morphine Sulfate 2 mg 07/27/17 14:48 07/27/17 14:57 Morphine Sulfate IVPB 2 mg Q4H PRN Administration PAIN LEVEL 6-10 Oxycodone HCl 10 mg 07/26/17 15:15 07/29/17 14:21 Roxicodone - PO 10 mg Q4H PRN Administration PAIN 1-5 Polyethylene Glycol 17 gm 07/26/17 15:15 07/29/17 10:13 Miralax (For Daily Use) - PO 17 grams BID [facility] Administration Rivaroxaban 15 mg 07/26/17 18:00 07/28/17 17:32 Xarelto - PO 15 mg DAILY@1800 [facility] Administration Impression 1. CKD 2. KRUNAL 3. volume overload 4. obesity 5. CAD 6. cellulitis 7. s/p fall 8. a-fib 9. DM 10. hypothyroidism 11. HLD 12. CHF 13. s/p leg fracture Plan - pt is going to rehab today - resume lasix 80 mg BID after discharge - will need to monitor renal function - ortho follow up - cont wound care - abx per ID - avoid nsaids Dr Quiroz
== END 2017-07-29 18:19 | DRG 981 ==
LOC: JER 21:39 → JERBED 23:56 → OBSVTOIN 07-12 08:13 → J6S 07-12 18:00
PROVIDERS: ADMIT Internal Medicine; ATTEND Internal Medicine
PROC: 5A09557 Assistance with Respiratory Ventilation, Greater than 96 Consecutive Hours, Continuous Positive Airway Pressure (ICD-10-PCS; 2017-07-12)
PROC: 0QHH05Z Insertion of External Fixation Device into Left Tibia, Open Approach (ICD-10-PCS; 2017-07-22)
PROC: 0QSH04Z Reposition Left Tibia with Internal Fixation Device, Open Approach (ICD-10-PCS; principal; 2017-07-22 13:00)
PROC: 02HV33Z Insertion of Infusion Device into Superior Vena Cava, Percutaneous Approach (ICD-10-PCS; 2017-07-28)
DX: L03.115 Cellulitis of right lower limb (principal); I50.33 Acute on chronic diastolic (congestive) heart failure; S82.842B Displaced bimalleolar fracture of left lower leg, initial encounter for open fracture type I or II; I13.0 Hypertensive heart and chronic kidney disease with heart failure and stage 1 through stage 4 chronic kidney disease, or unspecified chronic kidney disease; Z68.43 Body mass index [BMI] 50.0-59.9, adult; N17.9 Acute kidney failure, unspecified; S82.842A Displaced bimalleolar fracture of left lower leg, initial encounter for closed fracture; I25.10 Atherosclerotic heart disease of native coronary artery without angina pectoris; I50.9 Heart failure, unspecified; E78.5 Hyperlipidemia, unspecified; E11.22 Type 2 diabetes mellitus with diabetic chronic kidney disease; N18.3 Chronic kidney disease, stage 3 (moderate); E66.01 Morbid (severe) obesity due to excess calories; G47.33 Obstructive sleep apnea (adult) (pediatric); I27.20 Pulmonary hypertension, unspecified; D72.829 Elevated white blood cell count, unspecified; I48.2 Chronic atrial fibrillation; J44.9 Chronic obstructive pulmonary disease, unspecified; K59.00 Constipation, unspecified; E87.5 Hyperkalemia; M10.9 Gout, unspecified; Z98.61 Coronary angioplasty status; E87.70 Fluid overload, unspecified; E03.9 Hypothyroidism, unspecified; I25.2 Old myocardial infarction; Z87.891 Personal history of nicotine dependence; I87.8 Other specified disorders of veins; W18.39XA Other fall on same level, initial encounter; Z91.81 History of falling; Y93.89 Activity, other specified; Y92.230 Patient room in hospital as the place of occurrence of the external cause
CPT/HCPCS: 36415; 36569; 71045-TC-FY; 73502-TC-LT-FY; 73610-TC-LT-FY; 73630-TC-LT; 76000-TC-FY; 76775-TC; 77001-TC-FY; 80048; 80053; 81003; 81015; 82436; 82570; 82803; 82962; 83605; 83735; 84133; 84300; 84443; 84484; 84540; 85025; 85027; 85610; 85730; 87040; 87070; 87077; 87086; 87186; 87205; 93005; 93010; 93306-TC; 93970-TC; 94640; 94660; 94760; 97161-GP; 99285-25; C1751; G0378; G0480; J1644; J7620

== ENCOUNTER 2017-08-06 16:54 | Inpatient (IN) | payer OTHER, BC ==
--- NOTE | 2017-08-06 17:46 | PDOC ---
Attending Attestation - HPI HPI: 08/06/17 18:29 The patient is a 61 year old male, with a significant past medical history of hypertension, diabetes, CAD, DVT with RvR, Afib, diastolic CHF, morbid obesity, left extremity ulcer, and a compound fracture to the left ankle , who presents to the emergency department with, 1-3 days of decreased urinary output. He reports 1 days of a rash on his face and chest. The patient reports of shortness of breath with associated orthopnea. He denies any recent fevers, chills, headache or dizziness. He denies any recent nausea, vomit, diarrhea or constipation. He denies any recent dysuria or hematuria. Allergies: Sulfa (Sulfonamide antibiotics). Social History: Former smoker (Quit in 1992). Denies EtOH use and recreational drug use. - Medical Decision Making 08/06/17 7:16pm Call placed to Dr. Quiroz, patient's teasel setter, call dicussed with the resident Dr. Tevin Khan. 8:40pm Call placed to Dr. Hudson, patient's PCP, case was discussed. <Glenn Marsh - Last Filed: 08/06/17 20:55> - Resident Resident Name: Tevin Khan - ED Attending Attestation I have performed the following: I have examined & evaluated the patient, The case was reviewed & discussed with the resident, I agree w/resident's findings & plan, Exceptions are as noted - Physicial Exam PE: 08/06/17 22:16 Patient is awake and alert, morbidly obese, Normocephalic, atraumatic PERRLA, EOMI + Extensive erythroderma with desquamation to face, forehead and chest consistent with seborrheic dermatitis CTA RRR + Extensive erythema to the perineum and genitalia likely consistent with candidiasis; Right upper extremity: PICC line in place, with a 2 cm area of encrusted blood with minimal surrounding erythema, mildly tender to palpation; left upper extremity: Minimal erythroderma with desquamation to the antecubital fossa; Left lower extremity external fixation in place with a well-appearing incision site to the anteromedial aspect of the ankle joint without drainage; extensive stasis venous dermatitis to both lower extremity is bilaterally with pitting edema bilaterally Distal pulses are decreased bilaterally - Medical Decision Making 08/06/17 22:18 Patient is morbidly obese 61-year-old male with multiple comorbidities who presents with symptoms and signs of fluid overload and acute on chronic renal insufficiency with worsening BUN and creatinine. Chest x-ray reveals persistent vascular congestion and a small right-sided pleural effusion versus pleural thickening. Findings are unchanged. EKG reveals atrial fibrillation with no evidence of acute ischemia. CBC reveals mild anemia. Renal ultrasound shows no evidence of right-sided hydronephrosis, left kidney was not visualized, increased residual volume in the bladder was noted. Boyle catheter was placed for measurements of urinary output. Case discussed with Dr. Quiroz of renal. Patient will require admission to hospital for further evaluation of acute on chronic renal failure. <Jairon Baez - Last Filed: 08/06/17 22:20> Heart Score/ECG Review - ECG Intrepretation Comment:: 08/06/17 19:31 EKG performed at: 06 Aug 2017 at 11:59:46 Vent Rate 69 bpm [place] interval * ms QRS duration 94 ms QT/QTc 402/430 ms P-R-T axes * 80 -61 Atrial fibrilation Low voltage QRS Nonspecific T wave abnormality Abnormal ECG <Glenn Marsh - Last Filed: 08/06/17 20:55> Attestations - Attestations 08/06/17 18:22 Documentation prepared by Glenn Marsh, acting as biomedical engineering aide for Jairon Baez MD. <Glenn Marsh - Last Filed: 08/06/17 20:55>
--- NOTE | 2017-08-06 17:54 | PDOC ---
History of Present Illness - History of Present Illness Initial Comments: 08/06/17 17:41 61 yo M with h/o HTN, DM, CAD,MICHAEL x 2, DVT, diastolic CHF, A fib with RvR, CKD stage 3, morbid obesity, LE ulcers, compound fracture of left ankle who p/w decreased urinary ouptut. Patient with 1-3 days of urinary retention/decreased urination, and acute development of facial, chest rash and erythema x 1 day. Also endorses worsening SOB, LE edema, Estrella/SOB, orthopnea. On Lasix 80 mg PO BID , and Xarelto 20 mg PO QD. Denies F/C, N/V, CP, abdominal pain, diarrhea, constipation, hematuria, weakness, lightheadedness, sensory changes. <Tevin Khan - Last Filed: 08/06/17 18:02> <Jairon Baez - Last Filed: 08/06/17 22:14> - General Chief Complaint: Edema Stated Complaint: ALLERGIC REACTION Time Seen by Provider: 08/06/17 17:22 Past History - Past Medical History Anemia: No Asthma: No Cancer: No Cardiac Disorders: Yes (CAD,A.FIB) CVA: No COPD: No CHF: Yes DVT: Yes Dementia: No Diabetes: Yes GI Disorders: No Disorders: No HTN: Yes Hypercholesterolemia: Yes Liver Disease: No Seizures: No Thyroid Disease: Yes (hypo) Other medical history: OP,SLEEP APNEA - Surgical History Abdominal Surgery: No Appendectomy: No Cardiac Surgery: Yes (x 2 stents 07/2015) Cholecystectomy: No Lung Surgery: No Neurologic Surgery: No Orthopedic Surgery: Yes (RT MIDDLE TOE(EXTRA BONE) PULL OUT) - Immunization History Immunization Up to Date: Yes - Suicide/Smoking/Psychosocial Hx Smoking Status: No Smoking History: Former smoker Have you smoked in the past 12 months: No Number of Cigarettes Smoked Daily: 0 If you are a former smoker, when did you quit?: 1992 Information on smoking cessation initiated: No 'Breaking Loose' booklet given: 09/05/15 Hx Alcohol Use: No Drug/Substance Use Hx: No Substance Use Type: None Hx Substance Use Treatment: No <Tevin Khan - Last Filed: 08/06/17 18:02> <Jairon Baez - Last Filed: 08/06/17 22:14> - Past Medical History Allergies/Adverse Reactions: Allergies Allergy/AdvReac Type Severity Reaction Status Date / Time Sulfa (Sulfonamide Allergy Intermediate Rash Verified 08/06/17 17:07 Antibiotics) Home Medications: Ambulatory Orders Albuterol 2.5/Ipratropium 0.5 [Duoneb -] 1 neb NEB Q4H PRN 08/06/17 Atenolol [Tenormin] 100 mg PO BID 08/06/17 Atorvastatin Calcium 80 mg PO HS 08/06/17 Bisacodyl 10 mg PO DAILY 08/06/17 Clotrimazole 15 gm TP DAILY 08/06/17 Collagenase Clostridium Hist. [Santyl] 1 applic TP DAILY 08/06/17 Diphenhydramine HCl [Benadryl -] 50 mg PO DAILY 08/06/17 Febuxostat [Uloric -] 40 mg PO DAILY 08/06/17 Furosemide [Lasix] 80 mg PO BID 08/06/17 Glipizide 10 mg PO BID 08/06/17 Insulin (Novolog) [Novolog] 0 units SQ 08/06/17 Insulin Glargine,Hum.rec.anlog [Lantus] 80 unit SQ 08/06/17 Ipratropium/Albuterol Sulfate [Iprat-Albut 0.5-3(2.5) mg/3 ml] 3 ml IH Q6H 08/06 Levothyroxine [Synthroid -] 100 mcg PO DAILY 08/06/17 Linaclotide [Linzess] 290 mcg PO DAILY 08/06/17 Liraglutide [Victoza -] 1.8 mg SQ DAILY 08/06/17 Mupirocin Ointment [Bactroban] 1 applic TP DAILY 08/06/17 Oxycodone HCl 10 mg PO Q4H PRN 08/06/17 Oxycodone HCl/Acetaminophen [Percocet 5-325 mg Tablet] 2 tab PO HS 08/06/17 Polyethylene Glycol 3350 [Miralax (For Daily Use) -] 17 gm PO BID 08/06/17 Pramoxine HCl/Calamine [Calamine Medicated Lotion] 177 ml TP DAILY 08/06/17 Rivaroxaban [Xarelto -] 15 mg PO DAILY 08/06/17 Vancomycin HCl 1 gm IV DAILY 08/06/17 metroNIDAZOLE 0.75% GEL [Metrogel 0.75% Gel -] 1 applic TP BID 08/06/17 Review of Systems - Review of Systems Comments:: 08/06/17 18:41 GENERAL/CONSTITUTIONAL: No fever or chills. No weakness. HEAD, EYES, EARS, NOSE AND THROAT: No change in vision. No ear pain or discharge. No sore throat. CARDIOVASCULAR: + shortness of breath. No CP. RESPIRATORY: No cough, wheezing, or hemoptysis. GASTROINTESTINAL: No nausea, vomiting, diarrhea or constipation. GENITOURINARY: + Decreased urinary. Dysuria, frequency, or change in urination. MUSCULOSKELETAL: No joint or muscle swelling or pain. No neck or back pain. SKIN: +Diffuse rash NEUROLOGIC: No headache, vertigo, loss of consciousness, or change in strength/ sensation. ENDOCRINE: + Increased weight change. No increased thirst. HEMATOLOGIC/LYMPHATIC: + Easy bleeding. No anemia, or history of blood clots. ALLERGIC/IMMUNOLOGIC: No hives or skin allergy. <Tevin Khan - Last Filed: 08/06/17 18:02> *Physical Exam - Vital Signs Last Vital Signs Temp Pulse Resp BP Pulse Ox 97.7 F 81 18 100/78 94 L 08/06/17 17:07 08/06/17 17:07 08/06/17 17:07 08/06/17 17:07 08/06/17 17:07 - Physical Exam Comments: 08/06/17 18:42 GENERAL: Awake, alert, and fully oriented, in no acute distress HEAD: No signs of trauma, normocephalic, atraumatic EYES: PERRLA, EOMI, sclera anicteric, conjunctiva clear ENT: Auricles normal inspection, hearing grossly normal, nares patent, oropharynx clear without exudates. Moist mucosa NECK: Normal ROM, supple, no lymphadenopathy, JVD, or masses LUNGS: No distress, speaks full sentences, clear to auscultation bilaterally HEART: Regular rate and rhythm, normal S1 and S2, no murmurs, rubs or gallops, peripheral pulses normal and equal bilaterally. EXTREMITIES : BL LE 2+ pitting edema, lymphadema, chronic venous stasis dermatitis, and ttp. RLE with multiple superficial, shallow healing ulcerations dressed in gauze. LLE internal fixation device. Normal range of motion. No clubbing or cyanosis. SKIN: Erythematous inguinal desquamation, and coleen Warm, Dry, normal turgor, no rashes or lesions noted <Dhiraj Khanson - Last Filed: 08/06/17 18:02> - Vital Signs Last Vital Signs Temp Pulse Resp BP Pulse Ox 97.7 F 68 22 109/49 98 08/06/17 17:07 08/06/17 19:05 08/06/17 19:05 08/06/17 19:05 08/06/17 19:05 <Jairon Baez - Last Filed: 08/06/17 22:14> ED Treatment Course - LABORATORY CBC & Chemistry Diagram: 08/06/17 18:50 08/06/17 18:50 - ADDITIONAL ORDERS Additional order review: Laboratory Results 08/06/17 08/06/17 08/06/17 20:45 18:51 18:50 PT with INR INR Sodium 137 Potassium 5.6 H D Chloride 104 Carbon Dioxide 25 Anion Gap 8 BUN 82 H D Creatinine 3.1 H D Creat Clearance w eGFR 20.52 Random Glucose 169 H Calcium 7.7 L Total Bilirubin 0.5 D AST 11 L D ALT 18 D Alkaline Phosphatase 119 H D Creatine Kinase 27 L Troponin I 0.03 B-Natriuretic Peptide 8430.18 H Total Protein 6.8 Albumin 2.3 L Urine Color Yellow Urine Appearance Cloudy Urine pH 5.0 Ur Specific [place] 1.010 Urine Protein 2+ H Urine Glucose (UA) Negative Urine Ketones Negative Urine Blood 2+ H Urine Nitrite Negative Urine Bilirubin Negative Urine Urobilinogen Negative Ur Leukocyte Esterase 3+ H Urine WBC (Auto) 45 Urine RBC (Auto) 30 Ur Epithelial Cells Few Urine Bacteria Rare Urine Mucus Rare Urine Yeast Moderate 08/06/17 18:50 PT with INR 24.40 H INR 2.16 H D Sodium Potassium Chloride Carbon Dioxide Anion Gap BUN Creatinine Creat Clearance w eGFR Random Glucose Calcium Total Bilirubin AST ALT Alkaline Phosphatase Creatine Kinase Troponin I B-Natriuretic Peptide Total Protein Albumin Urine Color Urine Appearance Urine pH Ur Specific [place] Urine Protein Urine Glucose (UA) Urine Ketones Urine Blood Urine Nitrite Urine Bilirubin Urine Urobilinogen Ur Leukocyte Esterase Urine WBC (Auto) Urine RBC (Auto) Ur Epithelial Cells Urine Bacteria Urine Mucus Urine Yeast 08/06/17 18:50 RBC 2.90 L MCV 96.5 H MCHC 32.0 RDW 17.5 H MPV 8.2 Neutrophils % 73.9 Lymphocytes % 11.6 D Monocytes % 9.3 Eosinophils % 4.4 Basophils % 0.8 <Jairon Baez - Last Filed: 08/06/17 22:14> Medical Decision Making - Medical Decision Making 08/06/17 18:20 61 yo M with h/o HTN, DM, CAD,MICHAEL x 2, DVT, diastolic CHF, A fib with RvR, CKD stage 3, morbid obesity, LE ulcers, compound fracture of left ankle who p/w decreased urinary ouptut, and increased BL LE swelling, and SOB. VSS, 94 % O2 on 2 L NC, A&ox3, Patient with s/s of volume overload of multiple potential etiology in setting of CKD, and CHF. ED Course: CBC. CMP, T&S, PT/INR, PTT, Cardiac Pr, BNP EKG, CXR Per. Dr. Quiroz patient to receive Renal/Bladder U/S and admit to [facility] ( PMD) <Tevin Khan - Last Filed: 08/06/17 18:02> *DC/Admit/Observation/Transfer <Tevin Khan - Last Filed: 08/06/17 18:02> - Discharge Dispostion Decision to Admit order: Yes <Jairon Baez - Last Filed: 08/06/17 22:14> Diagnosis at time of Disposition: Acute renal insufficiency Atrial fibrillation Qualifiers: Atrial fibrillation type: chronic Qualified Code(s): I48.2 - Chronic atrial fibrillation CHF (congestive heart failure) Qualifiers: Heart failure type: unspecified Heart failure chronicity: acute on chronic Qualified Code(s): I50.9 - Heart failure, unspecified - Discharge Dispostion Condition at time of disposition: Fair - Referrals Referrals: Basil Harrington MD [Primary Care Provider] - - Patient Instructions - Post Discharge Activity
[2017-08-06] MEDS ORDERED: BACITRACIN 0.9 GM PACKET ONE (18:14)
[2017-08-06 18:55] LABS: BASO % 0.8 % (0-2.0); EOS % 4.4 % (0-4.5); LYMPH % 11.6 % (8-40); MCH 30.9 pg (25.7-33.7); MEAN CELL VOLUME 96.5 fl (80-96); MEAN PLT VOLUME 8.2 fl (7.5-11.1); MONO % 9.3 % (3.8-10.2); NEUT % 73.9 % (42.8-82.8); PLATELET COUNT 150 K/MM3 (134-434); RDW 17.5 % (11.9-15.9); WHITE BLOOD COUNT 7.5 K/mm3 (4.0-10.0)
[2017-08-06 19:07] LABS: INR 2.16 (0.82-1.09); PROTHROMBIN TIME (PATIENT) 24.4 SEC (9.7-13.0)
[2017-08-06 19:26] LABS: N-TERMINAL BNP 8430.18 pg/ml (5-125)
[2017-08-06 19:52] LABS: ALBUMIN 2.3 g/dl (3.4-5.0); ALK PHOS 119 U/L (45-117); ANION GAP 8 (8-16); BILIRUBIN,TOTAL 0.5 mg/dL (0.2-1.0); BLOOD UREA NITROGEN 82 mg/dL (7-18); CALCIUM 7.7 mg/dL (8.5-10.1); CHLORIDE 104 mmol/L (98-107); CO2 25 mmol/L (21-32); CREATININE 3.1 mg/dL (0.7-1.3); GLUCOSE,RANDOM 169 mg/dL (74-106); POTASSIUM 5.6 mmol/L (3.5-5.1); SGOT/AST 11 U/L (15-37); SGPT/ALT 18 U/L (12-78); SODIUM 137 mmol/L (136-145); TOT PROT 6.8 g/dl (6.4-8.2)
[2017-08-06 21:14] LABS: URINE APPEARANCE CLOUDY; URINE BILIRUBIN NEGATIVE (<2.0 mg/dL); URINE COLOR YELLOW; URINE GLUCOSE (UA) NEGATIVE (NEGATIVE); URINE KETONE NEGATIVE (NEGATIVE); URINE NITRITE NEGATIVE (NEGATIVE); URINE UROBILINOGEN NEGATIVE mg/dL (0.2-1.0)
[2017-08-06 21:20] LABS: URINE LEUK ESTERASE 3+ (NEGATIVE); URINE PROTEIN 2+ (NEGATIVE)
[2017-08-06 21:27] LABS: EPI CELLS FEW /HPF (FEW); URINE BACTERIA RARE /hpf (NONE SEEN); URINE MUCUS RARE; YEAST MODERATE
[2017-08-06 23:06] LABS: URINE APPEARANCE SLCLOUDY; URINE BILIRUBIN NEGATIVE (<2.0 mg/dL); URINE COLOR YELLOW; URINE GLUCOSE (UA) NEGATIVE (NEGATIVE); URINE KETONE NEGATIVE (NEGATIVE); URINE NITRITE NEGATIVE (NEGATIVE); URINE UROBILINOGEN NEGATIVE mg/dL (0.2-1.0)
[2017-08-06 23:07] LABS: URINE LEUK ESTERASE 1+ (NEGATIVE); URINE PROTEIN 2+ (NEGATIVE)
[2017-08-06 23:09] LABS: EPI CELLS RARE /HPF (FEW); URINE HYALINE CAST 4 /lpf; URINE MUCUS RARE
[2017-08-06] MEDS ORDERED: ALBUTEROL SO4 2.5/IPRATROPIUM 0.5 INH SOL 3 ML VIAL.NEB. NEB ONE ×2 (23:12→23:47)
[2017-08-07] MEDS ORDERED: DEXTROSE 50%-WATER - 25 GM/50 ML VIAL IVPUSH ONE ×2 (02:04→17:30)
[2017-08-07] MEDS ORDERED: INSULIN REGULAR HUMAN 100 UNITS/ML *VIAL IVPUSH ONE ×2 (02:09→17:30)
[2017-08-07] MEDS ORDERED: DEXTROSE 50%-WATER 25 GM/50 ML DISP.SYRIN ONE ×2 (02:17→17:34)
[2017-08-07] MEDS ORDERED: INSULIN REGULAR HUMAN 100 UNITS/ML *VIAL ONE (02:19)
--- NOTE | 2017-08-07 02:28 | HP ---
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 Cardiovascular: Yes: AFIB, CHF (tolicDias) Pulmonary: Yes: Pulmonary Embolus, Sleep Apnea, Other Gastrointestinal: Yes: Constipation Hepatobiliary: Yes: Cholelithiasis Renal/: Yes: Renal Inusuff Heme/Onc: Yes: Anemia Infectious Disease: Yes: Other (RLE cellulitis.) Psych: Yes: Depression Musculoskeletal: Yes: Chronic low back pain Rheumatology: Yes: Gout Endocrine: Yes: Diabetes Mellitus, Hypothyroidism - Past Surgical History Past Surgical History: Yes: Stent - Smoking History Smoking history: Former smoker Have you smoked in the past 12 months: No Aproximately how many cigarettes per day: 0 If you are a former smoker, when did you quit?: 1992 - Alcohol/Substance Use Hx Alcohol Use: No History of Substance Use: reports: None - Social History ADL: Independent History of Recent Travel: No Home Medications - Allergies Allergies/Adverse Reactions: Allergies Allergy/AdvReac Type Severity Reaction Status Date / Time Sulfa (Sulfonamide Allergy Intermediate Rash Verified 08/06/17 17:07 Antibiotics) - Home Medications Home Medications: Ambulatory Orders Albuterol 2.5/Ipratropium 0.5 [Duoneb -] 1 neb NEB Q4H PRN 08/06/17 Atenolol [Tenormin] 100 mg PO BID 08/06/17 Atorvastatin Calcium 80 mg PO HS 08/06/17 Bisacodyl 10 mg PO DAILY 08/06/17 Clotrimazole 15 gm TP DAILY 08/06/17 Collagenase Clostridium Hist. [Santyl] 1 applic TP DAILY 08/06/17 Diphenhydramine HCl [Benadryl -] 50 mg PO DAILY 08/06/17 Febuxostat [Uloric -] 40 mg PO DAILY 08/06/17 Furosemide [Lasix] 80 mg PO BID 08/06/17 Glipizide 10 mg PO BID 08/06/17 Insulin (Novolog) [Novolog] 0 units SQ AC 08/06/17 Insulin Glargine,Hum.rec.anlog [Lantus] 80 unit SQ HS 08/06/17 Ipratropium/Albuterol Sulfate [Iprat-Albut 0.5-3(2.5) mg/3 ml] 3 ml IH Q6H 08/06 Levothyroxine [Synthroid -] 100 mcg PO DAILY 08/06/17 Linaclotide [Linzess] 290 mcg PO DAILY 08/06/17 Liraglutide [Victoza -] 1.8 mg SQ DAILY 08/06/17 Mupirocin Ointment [Bactroban] 1 applic TP DAILY 08/06/17 Oxycodone HCl 10 mg PO Q4H PRN 08/06/17 Oxycodone HCl/Acetaminophen [Percocet 5-325 mg Tablet] 2 tab PO HS 08/06/17 Polyethylene Glycol 3350 [Miralax (For Daily Use) -] 17 gm PO BID 08/06/17 Pramoxine HCl/Calamine [Calamine Medicated Lotion] 177 ml TP DAILY 08/06/17 Rivaroxaban [Xarelto -] 15 mg PO DAILY 08/06/17 Vancomycin HCl 1 gm IV DAILY 08/06/17 metroNIDAZOLE 0.75% GEL [Metrogel 0.75% Gel -] 1 applic TP BID 08/06/17 Review of Systems - Review of Systems Constitutional: reports: No Symptoms Eyes: reports: No Symptoms HENT: reports: No Symptoms Neck: reports: No Symptoms Cardiovascular: reports: No Symptoms Respiratory: reports: Cough, Snoring, SOB Gastrointestinal: reports: No Symptoms Genitourinary: reports: Burning Musculoskeletal: reports: No Symptoms Integumentary: reports: Eczema, Erythema Neurological: reports: No Symptoms Endocrine: reports: No Symptoms Hematology/Lymphatic: reports: No Symptoms Psychiatric: reports: No Symptoms Physical Examination Vital Signs: Vital Signs Temperature 97.7 F 08/06/17 17:07 Pulse Rate 85 08/06/17 22:15 Respiratory Rate 20 08/06/17 22:15 Blood Pressure 100/48 08/06/17 22:15 O2 Sat by Pulse Oximetry (%) 95 08/06/17 22:15 Constitutional: Yes: Well Nourished, No Distress, Calm, Obese Eyes: Yes: WNL, Conjunctiva Clear, EOM Intact HENT: Yes: WNL, Atraumatic, Normocephalic Cardiovascular: Yes: WNL, Regular Rate and Rhythm Respiratory: Yes: WNL, Regular, CTA Bilaterally Gastrointestinal: Yes: WNL, Normal Bowel Sounds, Soft Renal/: Yes: Bladder Distention, Ferguson Present Musculoskeletal: Yes: WNL Extremities: Yes: WNL Labs: CBC, BMP 08/06/17 18:50 08/06/17 18:50 Imaging - Results Chest X-ray: Report Reviewed, Image Reviewed Ultrasound: Report Reviewed, Image Reviewed EKG: Report Reviewed, Image Reviewed Problem List - Problems (1) Acute renal insufficiency Assessment/Plan: acute renal failure 2/2 obstruction ferguson inserted 300cc of urine was retaining consult renal urine electrolytes urine analysis renal ultrasound Code(s): N28.9 - DISORDER OF KIDNEY AND URETER, UNSPECIFIED (2) Atrial fibrillation Assessment/Plan: rate control c/w rivaroxiban Code(s): I48.91 - UNSPECIFIED ATRIAL FIBRILLATION Qualifiers: Atrial fibrillation type: chronic Qualified Code(s): I48.2 - Chronic atrial fibrillation (3) CHF (congestive heart failure) Assessment/Plan: cardiology consultation c/w home medication elevated BNP c/w diuretics Code(s): I50.9 - HEART FAILURE, UNSPECIFIED Qualifiers: Heart failure type: unspecified Heart failure chronicity: acute on chronic Qualified Code(s): I50.9 - Heart failure, unspecified (4) Acute gouty arthritis Assessment/Plan: c/w home medication fuboxustat 40mg Code(s): M10.9 - GOUT, UNSPECIFIED (5) CKD (chronic kidney disease) Assessment/Plan: acute on chronic renal failure baseline is 2.0 now 3.1 consult nephrology for further evaluation Code(s): N18.9 - CHRONIC KIDNEY DISEASE, UNSPECIFIED (6) Diabetes Assessment/Plan: c/w glargine c/w ISS Code(s): E11.9 - TYPE 2 DIABETES MELLITUS WITHOUT COMPLICATIONS Qualifiers: Diabetes mellitus type: type 2 Diabetes mellitus 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 insulin use: with chcf use Diabetes mellitus complication status: with circulatory complication Diabetes mellitus complication detail: with other circulatory complications Qualified Code(s): E11.59 - Type 2 diabetes mellitus with other circulatory complications; Z79.4 - central lab technician (current) use of insulin; Z79.4 - assisted (current) use of insulin; Z79.4 - central lab technician (current) use of insulin; Z79.4 - assisted (current) use of insulin (7) Dyslipidemia Assessment/Plan: c/w statin therapy Code(s): E78.5 - HYPERLIPIDEMIA, UNSPECIFIED (8) BPH (benign prostatic hyperplasia) Assessment/Plan: urology evaluation after the patient had 300cc of urine retention Code(s): N40.0 - BENIGN PROSTATIC HYPERPLASIA WITHOUT LOWER URINRY TRACT SYMP (9) Skin rash Assessment/Plan: dermatology evaluation calomine lotion Code(s): R21 - RASH AND OTHER NONSPECIFIC SKIN ERUPTION
[2017-08-07] MEDS ORDERED: PATIENT'S OWN MEDICATION (NON-FORMULARY) (Oxycodone Hcl [Oxycodone Hcl] 10 MG) PO PRN (03:21)
[2017-08-07] MEDS: FUROSEMIDE 40 MG TABLET (FP) PO SCH ×2 (05:50→14:30)
[2017-08-07] MEDS: INSULIN SLIDING SCALE (NOVOLOG) 1 VIAL SQ SCH ×4 (06:36→21:40)
[2017-08-07] MEDS: INSULIN (LEVEMIR) 100 UNITS/ML UNITS SQ SCH ×2 (06:37→21:52)
[2017-08-07] MEDS: LEVOTHYROXINE NA 100 MCG TABLET (FP) PO SCH (06:37)
[2017-08-07 08:10] LABS: BASO % 0.7 % (0-2.0); EOS % 4.5 % (0-4.5); HEMATOCRIT 27.2 % (35.4-49); HEMOGLOBIN 8.7 GM/dL (11.7-16.9); LYMPH % 15.3 % (8-40); MCHC 32.1 g/dl (32.0-35.9); MEAN CELL VOLUME 96.5 fl (80-96); MEAN PLT VOLUME 8.6 fl (7.5-11.1); MONO % 9.2 % (3.8-10.2); NEUT % 70.3 % (42.8-82.8); PLATELET COUNT 144 K/MM3 (134-434); RBC 2.82 M/mm3 (4.00-5.60); RDW 17.6 % (11.9-15.9); WHITE BLOOD COUNT 7.3 K/mm3 (4.0-10.0)
[2017-08-07 08:40] LABS: ALBUMIN 2.3 g/dl (3.4-5.0); ALK PHOS 120 U/L (45-117); ANION GAP 8 (8-16); BILIRUBIN,TOTAL 0.7 mg/dL (0.2-1.0); BLOOD UREA NITROGEN 86 mg/dL (7-18); CALCIUM 7.8 mg/dL (8.5-10.1); CHLORIDE 103 mmol/L (98-107); CO2 27 mmol/L (21-32); CREATININE 3.2 mg/dL (0.7-1.3); GLUCOSE,RANDOM 123 mg/dL (74-106); PHOSPHOROUS 4.7 mg/dL (2.5-4.9); POTASSIUM 5.5 mmol/L (3.5-5.1); SGOT/AST 9 U/L (15-37); SGPT/ALT 15 U/L (12-78); SODIUM 138 mmol/L (136-145); TOT PROT 6.7 g/dl (6.4-8.2)
[2017-08-07] MEDS ORDERED: TAMSULOSIN HCL 0.4 MG CAP.ER.24H (FP) PO ONE (09:14)
--- NOTE | 2017-08-07 09:14 | CON.GU ---
Consult Consult Specialty:: urology Referred by:: Juany Reason for Consultation:: urinary retention and acute renal insufficiency - History of Present Illness Chief Complaint: renal insufficiency and urinary retention History of Present Illness: Patient with history of excacerbation of chronic kidney disease. The patient has a history of moderate frequency and urgency with nocturia x3. The patient denies urinary incontinence, previous urologic procedure or previous episodes of urinary retention, or family history of prostate cancer. The patient denies gross hematuria or recurrent uti's. 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 Cardio/Vascular: Yes: AFIB, CHF (tolicDias) Pulmonary: Yes: Pulmonary Embolus, Sleep Apnea, Other Gastrointestinal: Yes: Constipation Hepatobiliary: Yes: Cholelithiasis Renal/: Yes: Renal Inusuff Infectious Disease: Yes: Other (RLE cellulitis.) Psych: Yes: Depression Musculoskeletal: Yes: Chronic low back pain Rheumatology: Yes: Gout Endocrine: Yes: Diabetes Mellitus, Hypothyroidism - Past Surgical History Past Surgical History: Yes: Stent - Alcohol/Substance Use Hx Alcohol Use: No History of Substance Use: reports: None - Smoking History Smoking history: Former smoker Have you smoked in the past 12 months: No Aproximately how many cigarettes per day: 0 If you are a former smoker, when did you quit?: 1992 - Social History ADL: Independent History of Recent Travel: No Home Medications - Allergies Allergies/Adverse Reactions: Allergies Allergy/AdvReac Type Severity Reaction Status Date / Time Sulfa (Sulfonamide Allergy Intermediate Rash Verified 08/06/17 17:07 Antibiotics) - Home Medications Home Medications: Ambulatory Orders Albuterol 2.5/Ipratropium 0.5 [Duoneb -] 1 neb NEB Q4H PRN 08/06/17 Atenolol [Tenormin] 100 mg PO BID 08/06/17 Atorvastatin Calcium 80 mg PO HS 08/06/17 Bisacodyl 10 mg PO DAILY 08/06/17 Clotrimazole 15 gm TP DAILY 08/06/17 Collagenase Clostridium Hist. [Santyl] 1 applic TP DAILY 08/06/17 Diphenhydramine HCl [Benadryl -] 50 mg PO DAILY 08/06/17 Febuxostat [Uloric -] 40 mg PO DAILY 08/06/17 Furosemide [Lasix] 80 mg PO BID 08/06/17 Glipizide 10 mg PO BID 08/06/17 Insulin (Novolog) [Novolog] 0 units SQ AC 08/06/17 Insulin Glargine,Hum.rec.anlog [Lantus] 80 unit SQ HS 08/06/17 Ipratropium/Albuterol Sulfate [Iprat-Albut 0.5-3(2.5) mg/3 ml] 3 ml IH Q6H 08/06 Levothyroxine [Synthroid -] 100 mcg PO DAILY 08/06/17 Linaclotide [Linzess] 290 mcg PO DAILY 08/06/17 Liraglutide [Victoza -] 1.8 mg SQ DAILY 08/06/17 Mupirocin Ointment [Bactroban] 1 applic TP DAILY 08/06/17 Oxycodone HCl 10 mg PO Q4H PRN 08/06/17 Oxycodone HCl/Acetaminophen [Percocet 5-325 mg Tablet] 2 tab PO HS 08/06/17 Polyethylene Glycol 3350 [Miralax (For Daily Use) -] 17 gm PO BID 08/06/17 Pramoxine HCl/Calamine [Calamine Medicated Lotion] 177 ml TP DAILY 08/06/17 Rivaroxaban [Xarelto -] 15 mg PO DAILY 08/06/17 Vancomycin HCl 1 gm IV DAILY 08/06/17 metroNIDAZOLE 0.75% GEL [Metrogel 0.75% Gel -] 1 applic TP BID 08/06/17 Physical Exam- Vital Signs: Vital Signs Temperature 98.4 F 08/07/17 06:00 Pulse Rate 73 08/07/17 06:00 Respiratory Rate 18 08/07/17 06:00 Blood Pressure 98/51 08/07/17 06:00 O2 Sat by Pulse Oximetry (%) 93 L 08/07/17 03:30 Constitutional: Yes: Well Nourished, Calm Eyes: Yes: WNL, Conjunctiva Clear, EOM Intact HENT: Yes: WNL, Atraumatic, Normocephalic Neck: Yes: WNL, Supple, Trachea Midline Respiratory: Yes: Regular Gastrointestinal: Yes: WNL, Normal Bowel Sounds, Soft Renal/: Yes: WNL Kidneys: Yes: WNL Pelvis: Yes: Bladder Non Palpable Testicles: Yes: WNL Scrotum: Yes: WNL Penis: Yes: WNL (ferguson in place draining clear urine) Prostate Exam: Yes: Smooth, Swollen Labs: CBC, BMP 08/07/17 05:50 08/07/17 05:50 Imaging - Results Ultrasound: Report Reviewed (poor study) Assessment/Plan imp urinary retention acute renal insufficiency plan follow creatinine; etiology of ISSA most likely due to medical renal disease start flomax 0.4 mg daily trial of voiding 24-48 hours after flomax started
--- NOTE | 2017-08-07 09:21 | EKG ---
Test Reason : Blood Pressure : / mmHG Vent. Rate : 069 BPM Atrial Rate : 092 BPM P-R Int : 000 ms QRS Dur : 094 ms QT Int : 402 ms P-R-T Axes : 000 080 -61 degrees QTc Int : 430 ms ATRIAL FIBRILLATION LOW VOLTAGE QRS NONSPECIFIC T WAVE ABNORMALITY ABNORMAL ECG WHEN COMPARED WITH ECG OF 11-JUL-2017 23:34, CRITERIA FOR SEPTAL INFARCT ARE NO LONGER PRESENT QT HAS SHORTENED Confirmed by ASIA SORTO, LOLA ([id number]) on 08/07/2017 9:21:14 AM Referred By: Confirmed By:LOLA BETANCOURT MD
[2017-08-07] MEDS ORDERED: PATIENT'S OWN MEDICATION (NON-FORMULARY) (Linaclotide [Linzess] 290 MCG) PO SCH (10:00)
[2017-08-07] MEDS ORDERED: LIRAGLUTIDE 0.6 MG/0.1 ML PEN.INJCTR SQ SCH (10:00)
[2017-08-07] MEDS ORDERED: FEBUXOSTAT 40 MG TAB PO SCH (10:00)
[2017-08-07] MEDS ORDERED: ATENOLOL 50 MG TABLET (FP) PO SCH (10:00)
[2017-08-07] MEDS ORDERED: PT OWN MED DRAWER 7, Y5N ONE ×2 (10:12→10:41)
[2017-08-07] MEDS: BISACODYL 5 MG TABLET.DR (FP) PO SCH (10:17)
[2017-08-07] MEDS: RIVAROXABAN 15 MG TABLET PO SCH (10:17)
[2017-08-07] MEDS: MUPIROCIN 2% TOPICAL OINTMENT 22 GM TUBE TP SCH (10:17)
[2017-08-07] MEDS: COLLAGENASE CLOSTRIDIUM HIST. 30 GRAMS TUBE TP SCH (10:20)
[2017-08-07] MEDS: metroNIDAZOLE 0.75% TOPICAL GEL 45 GM TUBE TP SCH ×2 (10:20→21:54)
--- NOTE | 2017-08-07 10:23 | HOSP ---
Subjective - Review of Symptoms Subjective: states he reported to the ER due to decreased UOP for the past few days and rash that he developed on his face and chest. was very pruritic but has since resolved. is unaware if they were monitoring his labs over at [facility]. denies Cp, SOB, fever, chills, N/V/C/D. notes no new medications other than abx Current Medications Generic Name Dose Route Start Last Admin Trade Name Freq PRN Reason Stop Dose Admin Acetaminophen 650 mg 08/07/17 22:00 Tylenol - PO HS [facility] Atenolol 100 mg 08/07/17 10:00 Tenormin - PO BID [facility] Atorvastatin Calcium 80 mg 08/07/17 22:00 Lipitor - PO HS [facility] Bisacodyl 10 mg 08/07/17 10:00 Dulcolax - PO DAILY [facility] Collagenase 1 applic 08/07/17 10:00 Santyl - TP DAILY [facility] Febuxostat 40 mg 08/07/17 10:00 Uloric - PO DAILY [facility] Furosemide 80 mg 08/07/17 06:00 08/07/17 05:50 Lasix - PO Not Given BIDLASIX [facility] Insulin Aspart 1 vial 08/07/17 07:00 08/07/17 06:36 Novolog Vial Sliding Scale - SQ Not Given ACHS [facility] Protocol Insulin Detemir 40 units 08/07/17 07:00 08/07/17 06:37 Levemir Vial SQ 40 units BID@0700,2200 [facility]IL Administration Levothyroxine Sodium 100 mcg 08/07/17 07:00 08/07/17 06:37 Synthroid - PO 100 mcg DAILY@0700 [facility] Administration Liraglutide 1.8 mg 08/07/17 10:00 Victoza - SQ DAILY [facility] Metronidazole 1 applic 08/07/17 10:00 Metrogel 0.75% Gel - TP BID [facility] Mupirocin 1 applic 08/07/17 10:00 Bactroban 2% Ointment - TP DAILY [facility] Non-Formulary Medication 290 mcg 08/07/17 10:00 Linaclotide [Linzess] PO DAILY [facility] Oxycodone HCl 10 mg 08/07/17 22:00 Roxicodone - PO HS NEIL Oxycodone HCl 10 mg 08/07/17 03:52 Roxicodone - PO Q4H PRN PAIN LEVEL 6-10 Rivaroxaban 15 mg 08/07/17 10:00 Xarelto - PO DAILY [facility]IL Tamsulosin HCl 0.4 mg 08/08/17 10:30 Flomax - PO DAILY@0830 NEIL Last Vital Signs Temp Pulse Resp BP Pulse Ox 98.4 F 73 18 98/51 93 L 08/07/17 06:00 08/07/17 06:00 08/07/17 06:00 08/07/17 06:00 08/07/17 03:30 General NAD on cpap CV S1 S2 RRR no murmur/rub/gallop Lungs CTA anteriorly Abdomen soft NT/ND morbid obese Extremities LLE in external fixator. no pedal edema Skin some excoriations across the chest. ecchymosis of various states of healing over RUE CBCD WBC 7.3 K/mm3 (4.0-10.0) 08/07/17 05:50 RBC 2.82 M/mm3 (4.00-5.60) L 08/07/17 05:50 Hgb 8.7 GM/dL (11.7-16.9) L 08/07/17 05:50 Hct 27.2 % (35.4-49) L 08/07/17 05:50 MCV 96.5 fl (80-96) H 08/07/17 05:50 MCHC 32.1 g/dl (32.0-35.9) 08/07/17 05:50 RDW 17.6 % (11.9-15.9) H 08/07/17 05:50 Plt Count 144 K/MM3 (134-434) 08/07/17 05:50 MPV 8.6 fl (7.5-11.1) 08/07/17 05:50 CMP Sodium 138 mmol/L (136-145) 08/07/17 05:50 Potassium 5.5 mmol/L (3.5-5.1) H 08/07/17 05:50 Chloride 103 mmol/L (98-107) 08/07/17 05:50 Carbon Dioxide 27 mmol/L (21-32) 08/07/17 05:50 Anion Gap 8 (8-16) 08/07/17 05:50 BUN 86 mg/dL (7-18) H 08/07/17 05:50 Creatinine 3.2 mg/dL (0.7-1.3) H 08/07/17 05:50 Creat Clearance w eGFR 19.78 (>60) 08/07/17 05:50 Calcium 7.8 mg/dL (8.5-10.1) L 08/07/17 05:50 Total Bilirubin 0.7 mg/dL (0.2-1.0) D 08/07/17 05:50 AST 9 U/L (15-37) L 08/07/17 05:50 ALT 15 U/L (12-78) 08/07/17 05:50 Alkaline Phosphatase 120 U/L (45-117) H 08/07/17 05:50 Total Protein 6.7 g/dl (6.4-8.2) 08/07/17 05:50 Albumin 2.3 g/dl (3.4-5.0) L 08/07/17 05:50 A/P 61yo M with PMH afib on xarelto, CHF, gout, anemia, CKD, DM, BPH presented to the ER with decreased UOP and rash 1. Acute on CKD- baseline Cr 2.1. Fena <1%. concern may be pre-renal from volume overload however concern from suspected unmonitored vanco. no signs of obstruction on imaging. ferguson placed iwth 300cc output. maintain ferguson for now. started on flomax by urology. nephrology consulted. 2. Hyperkalemia- from KRUNAL. treated in the ER. no peaked T waves. repeat this afternoon. cardiac monitoring 3. Skin rash- none appreciated at this time. unclear if medication induced. will monitor 4. Anemia- hgb stable from baseline. elevated RDW. check iron studies. no indication for txn 5. acute on chronic diastolic CHF- pt has no complaints. saturating on baseline home O2. will cont home oral diuretics. strict I&O. daily weights 6. MSRA LLE- hold vanco dose today until vanco level received. 7. compound fracture LLE- maintain external fixator. NWB. pain control 8. afib on xarelto 9. gout- no signs of acute flare. hold oral agents in setting of KRUNAL 10. DM- cont home medications, iss 11. morbid obesity- bariatric referral as outpatient 12. DVT ppx- xarelto Physical Examination Vital Signs: Vital Signs Temperature 98.4 F 08/07/17 06:00 Pulse Rate 73 08/07/17 06:00 Respiratory Rate 18 08/07/17 06:00 Blood Pressure 98/51 08/07/17 06:00 O2 Sat by Pulse Oximetry (%) 93 L 08/07/17 03:30 Labs: CBC, BMP 08/07/17 05:50 08/07/17 05:50
[2017-08-07] MEDS: oxyCODONE HCL 5 MG TABLET PO PRN ×2 (10:44→20:39)
[2017-08-07] MEDS: TAMSULOSIN HCL 0.4 MG CAP.ER.24H (FP) PO SCH (12:02)
--- NOTE | 2017-08-07 13:24 | CONSULT ---
Consult Consult Specialty:: Nephrology Reason for Consultation:: KRUNAL - History of Present Illness Chief Complaint: decreased urination History of Present Illness: Pt is a 61 year old male with pmhx of CKD, KRUNAL, morbid obesity, diastolic CHF, a -fib, DVT, CAD and left leg compound fracture who presents to the ER from Rehab with decreased urination and a diffuse rash which was attributed to antibiotics. He complains of shortness of breath along with lower ext edema. He denies chest pain or palpitations. He complains of constipation. He denies fevers or chills. He was recently discharged from the hospital. 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: Peripheral Neuropathy Cardio/Vascular: Yes: AFIB, CHF (tolicDias) Pulmonary: Yes: Pulmonary Embolus, Sleep Apnea, Other Gastrointestinal: Yes: Constipation Hepatobiliary: Yes: Cholelithiasis Renal/: Yes: Renal Inusuff Infectious Disease: Yes: Other (RLE cellulitis.) Psych: Yes: Depression Musculoskeletal: Yes: Chronic low back pain Rheumatology: Yes: Gout Endocrine: Yes: Diabetes Mellitus, Hypothyroidism - Past Surgical History Past Surgical History: Yes: Stent - Alcohol/Substance Use Hx Alcohol Use: No History of Substance Use: reports: None - Smoking History Smoking history: Former smoker Have you smoked in the past 12 months: No Aproximately how many cigarettes per day: 0 If you are a former smoker, when did you quit?: 1992 - Social History ADL: Independent History of Recent Travel: No Home Medications - Allergies Allergies/Adverse Reactions: Allergies Allergy/AdvReac Type Severity Reaction Status Date / Time Sulfa (Sulfonamide Allergy Intermediate Rash Verified 08/06/17 17:07 Antibiotics) - Home Medications Home Medications: Ambulatory Orders Albuterol 2.5/Ipratropium 0.5 [Duoneb -] 1 neb NEB Q4H PRN 08/06/17 Atenolol [Tenormin] 100 mg PO BID 08/06/17 Atorvastatin Calcium 80 mg PO HS 08/06/17 Bisacodyl 10 mg PO DAILY 08/06/17 Clotrimazole 15 gm TP DAILY 08/06/17 Collagenase Clostridium Hist. [Santyl] 1 applic TP DAILY 08/06/17 Diphenhydramine HCl [Benadryl -] 50 mg PO DAILY 08/06/17 Febuxostat [Uloric -] 40 mg PO DAILY 08/06/17 Furosemide [Lasix] 80 mg PO BID 08/06/17 Glipizide 10 mg PO BID 08/06/17 Insulin (Novolog) [Novolog] 0 units SQ AC 08/06/17 Insulin Glargine,Hum.rec.anlog [Lantus] 80 unit SQ HS 08/06/17 Ipratropium/Albuterol Sulfate [Iprat-Albut 0.5-3(2.5) mg/3 ml] 3 ml IH Q6H 08/06 Levothyroxine [Synthroid -] 100 mcg PO DAILY 08/06/17 Linaclotide [Linzess] 290 mcg PO DAILY 08/06/17 Liraglutide [Victoza -] 1.8 mg SQ DAILY 08/06/17 Mupirocin Ointment [Bactroban] 1 applic TP DAILY 08/06/17 Oxycodone HCl 10 mg PO Q4H PRN 08/06/17 Oxycodone HCl/Acetaminophen [Percocet 5-325 mg Tablet] 2 tab PO HS 08/06/17 Polyethylene Glycol 3350 [Miralax (For Daily Use) -] 17 gm PO BID 08/06/17 Pramoxine HCl/Calamine [Calamine Medicated Lotion] 177 ml TP DAILY 08/06/17 Rivaroxaban [Xarelto -] 15 mg PO DAILY 08/06/17 Vancomycin HCl 1 gm IV DAILY 08/06/17 metroNIDAZOLE 0.75% GEL [Metrogel 0.75% Gel -] 1 applic TP BID 08/06/17 Family Disease History - Family Disease History Family History: Denies Review of Systems - Review of Systems Constitutional: reports: Malaise Eyes: reports: No Symptoms HENT: reports: No Symptoms Neck: reports: No Symptoms Cardiovascular: reports: Shortness of Breath Respiratory: reports: SOB Genitourinary: reports: Testicular Swelling Musculoskeletal: reports: Other (left leg fracture) Neurological: reports: No Symptoms Endocrine: reports: No Symptoms Hematology/Lymphatic: reports: No Symptoms Psychiatric: reports: No Symptoms Physical Exam Vital Signs: Vital Signs Temperature 98.4 F 08/07/17 06:00 Pulse Rate 73 08/07/17 06:00 Respiratory Rate 18 08/07/17 06:00 Blood Pressure 98/51 08/07/17 06:00 O2 Sat by Pulse Oximetry (%) 93 L 08/07/17 03:30 Constitutional: Yes: Calm Eyes: Yes: Conjunctiva Clear HENT: Yes: Atraumatic Neck: Yes: Supple Cardiovascular: Yes: S1, S2 Respiratory: Yes: Rhonchi Gastrointestinal: Yes: Soft, Abdomen, Obese Renal/: Yes: Ferguson Present Musculoskeletal: Yes: Other (left leg fracture) Edema: Yes Edema: LLE: 2+, RLE: 2+ Neurological: Yes: Oriented Psychiatric: Yes: Oriented Labs: CBC, BMP 08/07/17 05:50 08/07/17 05:50 Laboratory Tests 07/14/17 07/16/17 07/17/17 07:50 07:30 06:13 WBC Hgb Sodium Potassium BUN Creatinine 3.8 H 4.3 H 4.1 H Urine Protein Urine Blood 07/18/17 07/26/17 07/28/17 07:00 07:26 06:40 WBC Hgb Sodium Potassium BUN Creatinine 3.9 H 1.9 H 2.0 H Urine Protein Urine Blood 07/29/17 08/06/17 08/06/17 06:20 18:50 18:50 WBC Hgb 9.0 L Sodium Potassium 5.6 H D BUN Creatinine 2.0 H 3.1 H D Urine Protein Urine Blood 08/06/17 08/07/17 08/07/17 22:50 05:50 05:50 WBC 7.3 Hgb 8.7 L Sodium 138 Potassium 5.5 H BUN 86 H Creatinine 3.2 H Urine Protein 2+ H Urine Blood 1+ H Imaging - Results Chest X-ray: Report Reviewed (pulm vascular congestion with pleural effusion) Problem List - Problems (1) Acute renal insufficiency Code(s): N28.9 - DISORDER OF KIDNEY AND URETER, UNSPECIFIED (2) Atrial fibrillation Code(s): I48.91 - UNSPECIFIED ATRIAL FIBRILLATION Qualifiers: Atrial fibrillation type: chronic Qualified Code(s): I48.2 - Chronic atrial fibrillation (3) BPH (benign prostatic hyperplasia) Code(s): N40.0 - BENIGN PROSTATIC HYPERPLASIA WITHOUT LOWER URINRY TRACT SYMP (4) CHF (congestive heart failure) Code(s): I50.9 - HEART FAILURE, UNSPECIFIED Qualifiers: Heart failure type: unspecified Heart failure chronicity: acute on chronic Qualified Code(s): I50.9 - Heart failure, unspecified (5) Acute renal failure (ARF) Code(s): N17.9 - ACUTE KIDNEY FAILURE, UNSPECIFIED (6) CAD (coronary artery disease) Code(s): I25.10 - ATHSCL HEART DISEASE OF [place] CORONARY ARTERY W/O ANG PCTRS (7) CKD (chronic kidney disease) Code(s): N18.9 - CHRONIC KIDNEY DISEASE, UNSPECIFIED (8) Cellulitis Code(s): L03.90 - CELLULITIS, UNSPECIFIED Assessment/Plan Current Medications Generic Name Dose Route Start Last Admin Trade Name Freq PRN Reason Stop Dose Admin Acetaminophen 650 mg 08/07/17 22:00 Tylenol - PO HS NEIL Atenolol 100 mg 08/07/17 10:00 08/07/17 10:18 Tenormin - PO 100 mg BID NEIL Administration Atorvastatin Calcium 80 mg 08/07/17 22:00 Lipitor - PO HS NEIL Bisacodyl 10 mg 08/07/17 10:00 08/07/17 10:17 Dulcolax - PO 10 mg DAILY [facility] Administration Collagenase 1 applic 08/07/17 10:00 08/07/17 10:20 Santyl - TP 1 applic DAILY [facility] Administration Furosemide 80 mg 08/07/17 06:00 08/07/17 05:50 Lasix - PO Not Given BIDLASIX [facility] Insulin Aspart 1 vial 08/07/17 07:00 08/07/17 11:47 Novolog Vial Sliding Scale - SQ Not Given ACHS [facility] Protocol Insulin Detemir 40 units 08/07/17 07:00 08/07/17 06:37 Levemir Vial SQ 40 units BID@0700,2200 [facility] Administration Levothyroxine Sodium 100 mcg 08/07/17 07:00 08/07/17 06:37 Synthroid - PO 100 mcg DAILY@0700 [facility] Administration Liraglutide 1.8 mg 08/07/17 10:00 08/07/17 10:18 Victoza - SQ 1.8 mg DAILY [facility] Administration Metronidazole 1 applic 08/07/17 10:00 08/07/17 10:20 Metrogel 0.75% Gel - TP 1 applic BID [facility] Administration Mupirocin 1 applic 08/07/17 10:00 08/07/17 10:17 Bactroban 2% Ointment - TP 1 applic DAILY [facility] Administration Non-Formulary Medication 290 mcg 08/07/17 10:00 Linaclotide [Linzess] PO DAILY [facility] Oxycodone HCl 10 mg 08/07/17 22:00 Roxicodone - PO HS NEIL Oxycodone HCl 10 mg 08/07/17 03:52 08/07/17 10:44 Roxicodone - PO 10 mg Q4H PRN Administration PAIN LEVEL 6-10 Rivaroxaban 15 mg 08/07/17 10:00 08/07/17 10:17 Xarelto - PO 15 mg DAILY [facility] Administration Tamsulosin HCl 0.4 mg 08/07/17 11:45 08/07/17 12:02 Flomax - PO 0.4 mg DAILY@0830 [facility] Administration Impression 1. CKD 2. KRUNAL 3. volume overload 4. obesity 5. CAD 6. cellulitis 7. s/p fall 8. a-fib 9. DM 10. hypothyroidism 11. HLD 12. CHF 13. s/p leg fracture 14. hyperkalemia 15. constipation Plan - renal function is worsening - reviewed labs and fena is low along with urine sodium however pt is fluid overloaded with congestion on cxr and edema of his legs - cont with lasix as bp permits - start bowel regimen for constipation - ferguson placed, monitor urine output - ID follow up for abx - rash appears to have improved - recommend holding victoza - hold atenolol as he is hypotensive - discussed with medical team - potassium should help bring down the potassium - renal diet - cont wound care
[2017-08-07] MEDS ORDERED: SENNOSIDES 8.6MG TABLET (FP) PO PRN (13:33)
[2017-08-07] MEDS: DOCUSATE SODIUM 100 MG CAPSULE (FP) PO SCH ×3 (15:00→21:50)
[2017-08-07] MEDS: ALBUTEROL SO4 2.5/IPRATROPIUM 0.5 INH SOL 3 ML VIAL.NEB. NEB PRN ×2 (16:10→22:54)
[2017-08-07 16:26] LABS: ANION GAP 8 (8-16); BLOOD UREA NITROGEN 87 mg/dL (7-18); CALCIUM 7.9 mg/dL (8.5-10.1); CHLORIDE 104 mmol/L (98-107); CO2 26 mmol/L (21-32); CREATININE 3.2 mg/dL (0.7-1.3); GLUCOSE,RANDOM 182 mg/dL (74-106); SODIUM 138 mmol/L (136-145)
[2017-08-07 16:30] LABS: POTASSIUM 6.1 mmol/L (3.5-5.1)
[2017-08-07] MEDS ORDERED: SODIUM POLYSTYRENE SULFONATE 15 GM/60 ML BOTTLE ONE (17:29)
[2017-08-07] MEDS ORDERED: SODIUM POLYSTYRENE SULFONATE 15 GM/60 ML BOTTLE PO ONE (17:30)
[2017-08-07] MEDS: ACETAMINOPHEN 325 MG TABLET (FP) PO SCH ×2 (20:45→22:35)
[2017-08-07] MEDS: oxyCODONE HCL 5 MG TABLET PO SCH (21:38)
[2017-08-07] MEDS: ATENOLOL 50 MG TABLET (FP) PO SCH (21:45)
[2017-08-07] MEDS: ATORVASTATIN CA 80 MG TABLET (FP) PO SCH (21:50)
[2017-08-08] MEDS: oxyCODONE HCL 5 MG TABLET PO SCH ×2 (01:47→23:16)
[2017-08-08] MEDS: DOCUSATE SODIUM 100 MG CAPSULE (FP) PO SCH ×4 (05:42→21:47)
[2017-08-08] MEDS: INSULIN SLIDING SCALE (NOVOLOG) 1 VIAL SQ SCH ×4 (05:59→21:47)
[2017-08-08] MEDS: INSULIN (LEVEMIR) 100 UNITS/ML UNITS SQ SCH ×2 (06:37→21:58)
[2017-08-08] MEDS: LEVOTHYROXINE NA 100 MCG TABLET (FP) PO SCH (06:38)
[2017-08-08] MEDS: FUROSEMIDE 40 MG TABLET (FP) PO SCH ×2 (06:38→13:44)
[2017-08-08] MEDS ORDERED: PT OWN MED DRAWER 7, Y5N ONE (06:47)
[2017-08-08] MEDS: ALBUTEROL SO4 2.5/IPRATROPIUM 0.5 INH SOL 3 ML VIAL.NEB. NEB PRN ×2 (07:28→10:05)
[2017-08-08 07:33] LABS: HEMATOCRIT 28.2 % (35.4-49); MCH 31.1 pg (25.7-33.7); MEAN PLT VOLUME 8.7 fl (7.5-11.1); PLATELET COUNT 153 K/MM3 (134-434); RDW 17.8 % (11.9-15.9); WHITE BLOOD COUNT 7.3 K/mm3 (4.0-10.0)
[2017-08-08 07:48] LABS: CHLORIDE 104 mmol/L (98-107); POTASSIUM 5.7 mmol/L (3.5-5.1); SODIUM 139 mmol/L (136-145)
[2017-08-08 07:59] LABS: INR 1.96 (0.82-1.09); PROTHROMBIN TIME (PATIENT) 22.2 SEC (9.7-13.0)
[2017-08-08 08:07] LABS: ALBUMIN 2.4 g/dl (3.4-5.0); ALK PHOS 122 U/L (45-117); ANION GAP 7 (8-16); BILIRUBIN,TOTAL 0.6 mg/dL (0.2-1.0); BLOOD UREA NITROGEN 92 mg/dL (7-18); CALCIUM 7.8 mg/dL (8.5-10.1); CO2 28 mmol/L (21-32); CREATININE 3.2 mg/dL (0.7-1.3); GLUCOSE,RANDOM 125 mg/dL (74-106); SGOT/AST 13 U/L (15-37); SGPT/ALT 15 U/L (12-78); TOT PROT 6.9 g/dl (6.4-8.2)
[2017-08-08] MEDS: MUPIROCIN 2% TOPICAL OINTMENT 22 GM TUBE TP SCH (09:09)
[2017-08-08] MEDS: TAMSULOSIN HCL 0.4 MG CAP.ER.24H (FP) PO SCH (09:09)
[2017-08-08] MEDS: metroNIDAZOLE 0.75% TOPICAL GEL 45 GM TUBE TP SCH ×2 (09:11→21:58)
[2017-08-08] MEDS: BISACODYL 5 MG TABLET.DR (FP) PO SCH (09:11)
[2017-08-08] MEDS: COLLAGENASE CLOSTRIDIUM HIST. 30 GRAMS TUBE TP SCH (09:11)
[2017-08-08] MEDS: RIVAROXABAN 15 MG TABLET PO SCH (09:12)
[2017-08-08] MEDS: ATENOLOL 50 MG TABLET (FP) PO SCH ×2 (09:12→21:49)
[2017-08-08] MEDS: oxyCODONE HCL 5 MG TABLET PO PRN ×3 (09:13→19:06)
[2017-08-08] MEDS ORDERED: SODIUM POLYSTYRENE SULFONATE 15 GM/60 ML BOTTLE PO ONE (13:51)
--- NOTE | 2017-08-08 13:51 | PN ---
Progress Note, Physician History of Present Illness: Pt seen and examined at bedside. He is awake however complains of edema. He denies fevers or chills. - Current Medication List Current Medications: Active Medications Acetaminophen (Tylenol -) 650 mg PO HS [facility] Last Admin: 08/07/17 22:35 Dose: Not Given Albuterol/Ipratropium (Duoneb -) 1 amp NEB Q6H PRN PRN Reason: SHORTNESS OF BREATH Last Admin: 08/08/17 10:05 Dose: 1 amp Atenolol (Tenormin -) 100 mg PO BID [facility] Last Admin: 08/08/17 09:12 Dose: Not Given Atorvastatin Calcium (Lipitor -) 80 mg PO [facility] Last Admin: 08/07/17 21:50 Dose: 80 mg Bisacodyl (Dulcolax -) 10 mg PO DAILY [facility] Last Admin: 08/08/17 09:11 Dose: Not Given Collagenase (Santyl -) 1 applic TP DAILY [facility] Last Admin: 08/08/17 09:11 Dose: 1 applic Docusate Sodium (Colace -) 100 mg PO TID [facility] Last Admin: 08/08/17 13:48 Dose: Not Given Furosemide (Lasix -) 80 mg PO BIDLASIX [facility] Last Admin: 08/08/17 13:44 Dose: 80 mg Insulin Aspart (Novolog Vial Sliding Scale -) 1 vial SQ ACHS [facility] PRN Reason: Protocol Last Admin: 08/08/17 11:54 Dose: Not Given Insulin Detemir (Levemir Vial) 40 units SQ BID@0700,2200 [facility] Last Admin: 08/08/17 06:37 Dose: 40 units Levothyroxine Sodium (Synthroid -) 100 mcg PO DAILY@0700 [facility] Last Admin: 08/08/17 06:38 Dose: 100 mcg Metronidazole (Metrogel 0.75% Gel -) 1 applic TP BID [facility] Last Admin: 08/08/17 09:11 Dose: 1 applic Mupirocin (Bactroban 2% Ointment -) 1 applic TP DAILY [facility] Last Admin: 08/08/17 09:09 Dose: 1 applic Non-Formulary Medication (Linaclotide [Linzess]) 290 mcg PO DAILY [facility] Oxycodone HCl (Roxicodone -) 10 mg PO [facility] Last Admin: 08/08/17 01:47 Dose: 10 mg Oxycodone HCl (Roxicodone -) 10 mg PO Q4H PRN PRN Reason: PAIN LEVEL 6-10 Last Admin: 08/08/17 09:13 Dose: 10 mg Rivaroxaban (Xarelto -) 15 mg PO DAILY [facility] Last Admin: 08/08/17 09:12 Dose: 15 mg Senna (Senna -) 2 tab PO HS PRN PRN Reason: CONSTIPATION Tamsulosin HCl (Flomax -) 0.4 mg PO DAILY@0830 [facility] Last Admin: 08/08/17 09:09 Dose: 0.4 mg - Objective Vital Signs: Vital Signs Temperature 98 F 08/08/17 10:00 Pulse Rate 65 08/08/17 10:00 Respiratory Rate 20 08/08/17 10:00 Blood Pressure 90/57 08/08/17 10:00 O2 Sat by Pulse Oximetry (%) 97 08/08/17 09:00 Constitutional: Yes: Calm Eyes: Yes: Conjunctiva Clear HENT: Yes: Atraumatic Cardiovascular: Yes: S1, S2 Respiratory: Yes: On Nasal O2 Gastrointestinal: Yes: Normal Bowel Sounds, Soft, Abdomen, Obese Genitourinary: Yes: [place] Present Musculoskeletal: Yes: WNL Edema: Yes Edema: LLE: 2+, RLE: 2+ Neurological: Yes: Oriented Psychiatric: Yes: Oriented Labs: CBC, BMP 08/08/17 05:34 08/08/17 05:34 INR, PTT INR 1.96 (0.82-1.09) H 08/08/17 05:34 Problem List - Problems (1) Acute renal insufficiency Code(s): N28.9 - DISORDER OF KIDNEY AND URETER, UNSPECIFIED (2) Atrial fibrillation Code(s): I48.91 - UNSPECIFIED ATRIAL FIBRILLATION Qualifiers: Atrial fibrillation type: chronic Qualified Code(s): I48.2 - Chronic atrial fibrillation (3) BPH (benign prostatic hyperplasia) Code(s): N40.0 - BENIGN PROSTATIC HYPERPLASIA WITHOUT LOWER URINRY TRACT SYMP (4) CHF (congestive heart failure) Code(s): I50.9 - HEART FAILURE, UNSPECIFIED Qualifiers: Heart failure type: unspecified Heart failure chronicity: acute on chronic Qualified Code(s): I50.9 - Heart failure, unspecified (5) Acute renal failure (ARF) Code(s): N17.9 - ACUTE KIDNEY FAILURE, UNSPECIFIED (6) CAD (coronary artery disease) Code(s): I25.10 - ATHSCL HEART DISEASE OF [place] CORONARY ARTERY W/O ANG PCTRS (7) CKD (chronic kidney disease) Code(s): N18.9 - CHRONIC KIDNEY DISEASE, UNSPECIFIED (8) Cellulitis Code(s): L03.90 - CELLULITIS, UNSPECIFIED Assessment/Plan Current Medications Generic Name Dose Route Start Last Admin Trade Name Freq PRN Reason Stop Dose Admin Acetaminophen 650 mg 08/07/17 22:00 08/07/17 22:35 Tylenol - PO Not Given HS NEIL Albuterol/Ipratropium 1 amp 08/07/17 15:15 08/08/17 10:05 Duoneb - NEB 1 amp Q6H PRN Administration SHORTNESS OF BREATH Atenolol 100 mg 08/07/17 13:35 08/08/17 09:12 Tenormin - PO Not Given BID NEIL Atorvastatin Calcium 80 mg 08/07/17 22:00 08/07/17 21:50 Lipitor - PO 80 mg HS NEIL Administration Bisacodyl 10 mg 08/07/17 10:00 08/08/17 09:11 Dulcolax - PO Not Given DAILY NEIL Collagenase 1 applic 08/07/17 10:00 08/08/17 09:11 Santyl - TP 1 applic DAILY [facility]IL Administration Docusate Sodium 100 mg 08/07/17 13:45 08/08/17 13:48 Colace - PO Not Given TID NEIL Furosemide 80 mg 08/07/17 06:00 08/08/17 13:44 Lasix - PO 80 mg BIDLASIX NEIL Administration Insulin Aspart 1 vial 08/07/17 07:00 08/08/17 11:54 Novolog Vial Sliding Scale - SQ Not Given ACHS [facility] Protocol Insulin Detemir 40 units 08/07/17 07:00 08/08/17 06:37 Levemir Vial SQ 40 units BID@0700,2200 NEIL Administration Levothyroxine Sodium 100 mcg 08/07/17 07:00 08/08/17 06:38 Synthroid - PO 100 mcg DAILY@0700 NEIL Administration Metronidazole 1 applic 08/07/17 10:00 08/08/17 09:11 Metrogel 0.75% Gel - TP 1 applic BID NEIL Administration Mupirocin 1 applic 08/07/17 10:00 08/08/17 09:09 Bactroban 2% Ointment - TP 1 applic DAILY [facility]IL Administration Non-Formulary Medication 290 mcg 08/07/17 10:00 Linaclotide [Linzess] PO DAILY NEIL Oxycodone HCl 10 mg 08/07/17 22:00 08/08/17 01:47 Roxicodone - PO 10 mg HS NEIL Administration Oxycodone HCl 10 mg 08/07/17 03:52 08/08/17 09:13 Roxicodone - PO 10 mg Q4H PRN Administration PAIN LEVEL 6-10 Rivaroxaban 15 mg 08/07/17 10:00 08/08/17 09:12 Xarelto - PO 15 mg DAILY NEIL Administration Senna 2 tab 08/07/17 13:33 Senna - PO HS PRN CONSTIPATION Tamsulosin HCl 0.4 mg 08/07/17 11:45 08/08/17 09:09 Flomax - PO 0.4 mg DAILY@0830 NEIL Administration Impression 1. CKD 2. KRUNAL 3. volume overload 4. obesity 5. CAD 6. cellulitis 7. s/p fall 8. a-fib 9. DM 10. hypothyroidism 11. HLD 12. CHF 13. s/p leg fracture 14. hyperkalemia 15. constipation Plan - cont lasix - will treat potassium medically - repeat cxr in am - cardio eval - edema is not improved - bp remains low - monitor urine output - ID follow up - renal diet - cont wound care
--- NOTE | 2017-08-08 14:58 | PN ---
Physical Exam: SUBJECTIVE: Patient seen and examined OBJECTIVE: Vital Signs Period Temp Pulse Resp BP Sys/Mehta Pulse Ox Last 24 Hr 97.7 F-98.1 F 65-80 18-20 87-96/48-63 97-98 GENERAL: The patient is awake, alert, and fully oriented, in no acute distress. HEAD: Normal with no signs of trauma. EYES: PERRL, extraocular movements intact, sclera anicteric, conjunctiva clear. No ptosis. ENT: Ears normal, nares patent, oropharynx clear without exudates, moist mucous membranes. NECK: Trachea midline, full range of motion, supple. LUNGS: Breath sounds equal, clear to auscultation bilaterally, no wheezes, no crackles, no accessory muscle use. HEART: Regular rate and rhythm, S1, S2 without murmur, rub or gallop. ABDOMEN: Soft, nontender, nondistended, normoactive bowel sounds, no guarding, no rebound, no hepatosplenomegaly, no masses. EXTREMITIES: 2+ pulses, warm, well-perfused, no edema. NEUROLOGICAL: Cranial nerves II through XII grossly intact. Normal speech, gait not observed. PSYCH: Normal mood, normal affect. SKIN: Warm, dry, normal turgor, no rashes or lesions noted Laboratory Results - last 24 hr 08/06/17 08/07/17 08/07/17 22:50 15:00 15:00 WBC RBC Hgb Hct MCV MCH MCHC RDW Plt Count MPV PT with INR INR Sodium 138 Potassium 6.1 H* Chloride 104 Carbon Dioxide 26 Anion Gap 8 BUN 87 H Creatinine 3.2 H Creat Clearance w eGFR POC Glucometer Random Glucose 182 H D Calcium 7.9 L Ferritin 26.951 Total Bilirubin AST ALT Alkaline Phosphatase Total Protein Albumin Ur Uric Acid Cancelled Random Vancomycin 26.064 08/07/17 08/07/17 08/08/17 18:00 20:21 01:59 WBC RBC Hgb Hct MCV MCH MCHC RDW Plt Count MPV PT with INR INR Sodium Potassium Chloride Carbon Dioxide Anion Gap BUN Creatinine Creat Clearance w eGFR POC Glucometer 191 179 171 Random Glucose Calcium Ferritin Total Bilirubin AST ALT Alkaline Phosphatase Total Protein Albumin Ur Uric Acid Random Vancomycin 08/08/17 08/08/17 08/08/17 05:34 05:34 05:34 WBC 7.3 RBC 2.90 L Hgb 9.0 L Hct 28.2 L MCV 97.0 H MCH 31.1 MCHC 32.0 RDW 17.8 H Plt Count 153 MPV 8.7 PT with INR 22.20 H INR 1.96 H Sodium 139 Potassium 5.7 H Chloride 104 Carbon Dioxide 28 Anion Gap 7 L BUN 92 H Creatinine 3.2 H Creat Clearance w eGFR 19.78 POC Glucometer Random Glucose 125 H D Calcium 7.8 L Ferritin 25.672 Total Bilirubin 0.6 AST 13 L D ALT 15 Alkaline Phosphatase 122 H Total Protein 6.9 Albumin 2.4 L Ur Uric Acid Random Vancomycin 08/08/17 08/08/17 08/08/17 05:48 07:35 11:53 WBC RBC Hgb Hct MCV MCH MCHC RDW Plt Count MPV PT with INR INR Sodium Potassium Chloride Carbon Dioxide Anion Gap BUN Creatinine Creat Clearance w eGFR POC Glucometer 130 193 Random Glucose Calcium Ferritin Total Bilirubin AST ALT Alkaline Phosphatase Total Protein Albumin Ur Uric Acid Random Vancomycin 24.472 Active Medications Generic Name Dose Route Start Last Admin Trade Name Freq PRN Reason Stop Dose Admin Acetaminophen 650 mg 08/07/17 22:00 08/07/17 22:35 Tylenol - PO Not Given HS NEIL Albuterol/Ipratropium 1 amp 08/07/17 15:15 08/08/17 10:05 Duoneb - NEB 1 amp Q6H PRN Administration SHORTNESS OF BREATH Atenolol 100 mg 08/07/17 13:35 08/08/17 09:12 Tenormin - PO Not Given BID NEIL Atorvastatin Calcium 80 mg 08/07/17 22:00 08/07/17 21:50 Lipitor - PO 80 mg HS NEIL Administration Bisacodyl 10 mg 08/07/17 10:00 08/08/17 09:11 Dulcolax - PO Not Given DAILY NEIL Collagenase 1 applic 08/07/17 10:00 08/08/17 09:11 Santyl - TP 1 applic DAILY NEIL Administration Docusate Sodium 100 mg 08/07/17 13:45 08/08/17 13:48 Colace - PO Not Given TID NEIL Furosemide 80 mg 08/07/17 06:00 08/08/17 13:44 Lasix - PO 80 mg BIDLASIX NEIL Administration Insulin Aspart 1 vial 08/07/17 07:00 08/08/17 11:54 Novolog Vial Sliding Scale - SQ Not Given ACHS [facility] Protocol Insulin Detemir 40 units 08/07/17 07:00 08/08/17 06:37 Levemir Vial SQ 40 units BID@0700,2200 NEIL Administration Levothyroxine Sodium 100 mcg 08/07/17 07:00 08/08/17 06:38 Synthroid - PO 100 mcg DAILY@0700 NEIL Administration Metronidazole 1 applic 08/07/17 10:00 08/08/17 09:11 Metrogel 0.75% Gel - TP 1 applic BID NEIL Administration Mupirocin 1 applic 08/07/17 10:00 08/08/17 09:09 Bactroban 2% Ointment - TP 1 applic DAILY NEIL Administration Non-Formulary Medication 290 mcg 08/07/17 10:00 Linaclotide [Linzess] PO DAILY NEIL Oxycodone HCl 10 mg 08/07/17 22:00 08/08/17 01:47 Roxicodone - PO 10 mg HS NEIL Administration Oxycodone HCl 10 mg 08/07/17 03:52 08/08/17 09:13 Roxicodone - PO 10 mg Q4H PRN Administration PAIN LEVEL 6-10 Rivaroxaban 15 mg 08/07/17 10:00 08/08/17 09:12 Xarelto - PO 15 mg DAILY NEIL Administration Sodium Polystyrene Sulfonate 30 gm 08/08/17 13:51 Kayexalate - PO 08/08/17 13:52 ONCE ONE Tamsulosin HCl 0.4 mg 08/07/17 11:45 08/08/17 09:09 Flomax - PO 0.4 mg DAILY@0830 NEIL Administration ASSESSMENT/PLAN: This is a 61 year old man with a history of atrial fib, chronic diastolic heart failure, HTN, hyperlipidemia, hypothyroidism, gout, anemia, stage 3 CKD, type 2 DM, BPH who presented to the ED with a rash and decreased urination. 1. Acute kidney injury - Possibly secondary to Vancomycin, hypotension - Creatinine stable - Maintain Boyle and monitor urine output 2. Stage 3 CKD 3. Hyperkalemia - Improving with Kayexalate 4. Skin rash - Resolved 5. Anemia, macrocytic - Hemoglobin stable - Ferritin is low normal, remaining iron studies pending - TSH was normal 07/12/17 - Check B12, folate 6. Chronic diastolic heart failure - Continue Lasix 7. Recent cellulitis of legs with MRSA - Vancomycin on hold (level today is 24) 8. Recent open fracture dislocation of left ankle - s/p external fixation 07/22 - Maintain non-weight bearing 9. Permanent atrial fibrillation - Continue Atenolol, Xarelto 10. HTN - Continue atenolol, Lasix 11. Hyperlipidemia - Continue Lipitor 12. History of gout 13. Type 2 DM - Continue Levemir, Novolog sliding scale 14. Hypothyroidism - Continue Synthroid 15. Morbid obesity with BMI 66.1 Visit type - Emergency Visit Emergency Visit: Yes ED Registration Date: 08/06/17 Care time: The patient presented to the Emergency Department on the above date and was hospitalized for further evaluation of their emergent condition. - New Patient This patient is new to me today: Yes Date on this admission: 08/08/17 - Critical Care Critical Care patient: No - Discharge Referral Referred to [facility] No
--- NOTE | 2017-08-08 15:25 | CON.ID ---
Consult - History of Present Illness History of Present Illness: 61 y.o. male with PMH of CAD, CHF, AFIB, CKD, morbid obesity, PE, BPH who was hospitalized recently with LE cellulitis, RLE infected ulcers (MRSA, Pseudomonas growth) on treatment with Ceftazidime and Vancomycin and underwent external fixation for LLE compound fracture now readmitted with urinary retention, elevated creatinine and generalized body rash. Pt had been discharged on IV antibiotics and currently with elevated vancomycin levels. He denies fever, chills, dysuria but has shortness of breath. No productive cough reported. Denies abd pain,n/v/d. 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 Cardio/Vascular: Yes: AFIB, CHF (tolicDias) Pulmonary: Yes: Pulmonary Embolus, Sleep Apnea, Other Gastrointestinal: Yes: Constipation Hepatobiliary: Yes: Cholelithiasis Renal/: Yes: Renal Inusuff Infectious Disease: Yes: Other (RLE cellulitis/ infected LE ulcers ) Psych: Yes: Depression Musculoskeletal: Yes: Chronic low back pain Rheumatology: Yes: Gout Endocrine: Yes: Diabetes Mellitus, Hypothyroidism - Past Surgical History Past Surgical History: Yes: Stent Additional Surgical History: LLE external fixation - Alcohol/Substance Use Hx Alcohol Use: No History of Substance Use: reports: None - Smoking History Smoking history: Former smoker Have you smoked in the past 12 months: No Aproximately how many cigarettes per day: 0 If you are a former smoker, when did you quit?: 1992 - Social History ADL: Independent History of Recent Travel: No Home Medications - Allergies Allergies/Adverse Reactions: Allergies Allergy/AdvReac Type Severity Reaction Status Date / Time Sulfa (Sulfonamide Allergy Intermediate Rash Verified 08/06/17 17:07 Antibiotics) - Home Medications Home Medications: Ambulatory Orders Albuterol 2.5/Ipratropium 0.5 [Duoneb -] 1 neb NEB Q4H PRN 08/06/17 Atenolol [Tenormin] 100 mg PO BID 08/06/17 Atorvastatin Calcium 80 mg PO HS 08/06/17 Bisacodyl 10 mg PO DAILY 08/06/17 Clotrimazole 15 gm TP DAILY 08/06/17 Collagenase Clostridium Hist. [Santyl] 1 applic TP DAILY 08/06/17 Diphenhydramine HCl [Benadryl -] 50 mg PO DAILY 08/06/17 Febuxostat [Uloric -] 40 mg PO DAILY 08/06/17 Furosemide [Lasix] 80 mg PO BID 08/06/17 Glipizide 10 mg PO BID 08/06/17 Insulin (Novolog) [Novolog] 0 units SQ AC 08/06/17 Insulin Glargine,Hum.rec.anlog [Lantus] 80 unit SQ HS 08/06/17 Ipratropium/Albuterol Sulfate [Iprat-Albut 0.5-3(2.5) mg/3 ml] 3 ml IH Q6H 08/06 Levothyroxine [Synthroid -] 100 mcg PO DAILY 08/06/17 Linaclotide [Linzess] 290 mcg PO DAILY 08/06/17 Liraglutide [Victoza -] 1.8 mg SQ DAILY 08/06/17 Mupirocin Ointment [Bactroban] 1 applic TP DAILY 08/06/17 Oxycodone HCl 10 mg PO Q4H PRN 08/06/17 Oxycodone HCl/Acetaminophen [Percocet 5-325 mg Tablet] 2 tab PO HS 08/06/17 Polyethylene Glycol 3350 [Miralax (For Daily Use) -] 17 gm PO BID 08/06/17 Pramoxine HCl/Calamine [Calamine Medicated Lotion] 177 ml TP DAILY 08/06/17 Rivaroxaban [Xarelto -] 15 mg PO DAILY 08/06/17 Vancomycin HCl 1 gm IV DAILY 08/06/17 metroNIDAZOLE 0.75% GEL [Metrogel 0.75% Gel -] 1 applic TP BID 08/06/17 Review of Systems - Review of Systems Constitutional: reports: Weakness Eyes: reports: No Symptoms HENT: reports: No Symptoms Neck: reports: No Symptoms Respiratory: reports: SOB Gastrointestinal: reports: No Symptoms Genitourinary: reports: Other (retention, now with ferguson) Musculoskeletal: reports: No Symptoms Integumentary: reports: Rash (generalized erythematous) Neurological: reports: No Symptoms Endocrine: reports: No Symptoms Hematology/Lymphatic: reports: No Symptoms Psychiatric: reports: No Symptoms Physical Exam Vital Signs: Vital Signs Temperature 98.1 F 08/08/17 14:05 Pulse Rate 86 08/08/17 14:05 Respiratory Rate 20 08/08/17 14:05 Blood Pressure 120/65 08/08/17 14:05 O2 Sat by Pulse Oximetry (%) 97 08/08/17 09:00 Constitutional: Yes: No Distress, Calm HENT: Yes: WNL Neck: Yes: Supple Cardiovascular: Yes: Pulse Irregular Respiratory: Yes: Diminished Gastrointestinal: Yes: Normal Bowel Sounds, Soft, Abdomen, Obese Renal/: Yes: Ferguson Present Edema: LLE: 3+, RLE: 3+ Integumentary: Yes: Other Wound/Incision: Yes: Other (RLE without purulence or malodor, less erythema LLE with hardware, sutures intact with serosanguinous drainage, erythema improved) Neurological: Yes: Alert Labs: CBC, BMP 08/08/17 05:34 08/08/17 05:34 Laboratory Tests 08/06/17 08/06/17 08/06/17 18:50 18:50 18:50 WBC 7.5 RBC 2.90 L Hgb 9.0 L Hct 28.0 L MCV 96.5 H MCH 30.9 MCHC 32.0 RDW 17.5 H Plt Count 150 MPV 8.2 Neutrophils % 73.9 Lymphocytes % 11.6 D Monocytes % 9.3 Eosinophils % 4.4 Basophils % 0.8 PT with INR 24.40 H INR 2.16 H D PTT (Actin FS) Sodium 137 Potassium 5.6 H D Chloride 104 Carbon Dioxide 25 Anion Gap 8 BUN 82 H D Creatinine 3.1 H D Creat Clearance w eGFR 20.52 POC Glucometer Random Glucose 169 H Calcium 7.7 L Phosphorus Magnesium Ferritin Total Bilirubin 0.5 D AST 11 L D ALT 18 D Alkaline Phosphatase 119 H D Creatine Kinase Troponin I B-Natriuretic Peptide Total Protein 6.8 Albumin 2.3 L Urine Color Urine Appearance Urine pH Ur Specific [place] Urine Protein Urine Glucose (UA) Urine Ketones Urine Blood Urine Nitrite Urine Bilirubin Urine Urobilinogen Ur Leukocyte Esterase Urine WBC (Auto) Urine RBC (Auto) Ur Epithelial Cells Urine Bacteria Hyaline Casts Urine Mucus Urine Yeast Ur Random Sodium Ur Random Potassium Ur Random Chloride Ur Random Urea Nitrogn Urine Creatinine Urine Potassium Ur Uric Acid Random Vancomycin 08/06/17 08/06/17 08/06/17 18:51 20:45 22:50 WBC RBC Hgb Hct MCV MCH MCHC RDW Plt Count MPV Neutrophils % Lymphocytes % Monocytes % Eosinophils % Basophils % PT with INR INR PTT (Actin FS) Sodium Potassium Chloride Carbon Dioxide Anion Gap BUN Creatinine Creat Clearance w eGFR POC Glucometer Random Glucose Calcium Phosphorus Magnesium Ferritin Total Bilirubin AST ALT Alkaline Phosphatase Creatine Kinase 27 L Troponin I 0.03 B-Natriuretic Peptide 8430.18 H Total Protein Albumin Urine Color Yellow Urine Appearance Cloudy Urine pH 5.0 Ur Specific [place] 1.010 Urine Protein 2+ H Urine Glucose (UA) Negative Urine Ketones Negative Urine Blood 2+ H Urine Nitrite Negative Urine Bilirubin Negative Urine Urobilinogen Negative Ur Leukocyte Esterase 3+ H Urine WBC (Auto) 45 Urine RBC (Auto) 30 Ur Epithelial Cells Few Urine Bacteria Rare Hyaline Casts Urine Mucus Rare Urine Yeast Moderate Ur Random Sodium Ur Random Potassium Ur Random Chloride Ur Random Urea Nitrogn 402 Urine Creatinine Urine Potassium Cancelled Ur Uric Acid Cancelled Random Vancomycin 08/06/17 08/06/17 08/07/17 22:50 22:50 05:50 WBC RBC Hgb Hct MCV MCH MCHC RDW Plt Count MPV Neutrophils % Lymphocytes % Monocytes % Eosinophils % Basophils % PT with INR INR PTT (Actin FS) Sodium Cancelled Potassium Cancelled Chloride Cancelled Carbon Dioxide Cancelled Anion Gap Cancelled BUN Cancelled Creatinine Cancelled Creat Clearance w eGFR POC Glucometer Random Glucose Cancelled Calcium Cancelled Phosphorus Magnesium Ferritin Total Bilirubin AST ALT Alkaline Phosphatase Creatine Kinase Troponin I B-Natriuretic Peptide Total Protein Albumin Urine Color Yellow Urine Appearance Slcloudy Urine pH 5.0 Ur Specific [place] 1.013 Urine Protein 2+ H Urine Glucose (UA) Negative Urine Ketones Negative Urine Blood 1+ H Urine Nitrite Negative Urine Bilirubin Negative Urine Urobilinogen Negative Ur Leukocyte Esterase 1+ H D Urine WBC (Auto) 3 Urine RBC (Auto) 3 Ur Epithelial Cells Rare Urine Bacteria Hyaline Casts 4 Urine Mucus Rare Urine Yeast Ur Random Sodium 23 Ur Random Potassium 42.6 Ur Random Chloride 14 Ur Random Urea Nitrogn Urine Creatinine 161.0 Urine Potassium Ur Uric Acid Random Vancomycin 08/07/17 08/07/17 08/07/17 05:50 05:50 05:50 WBC 7.3 RBC 2.82 L Hgb 8.7 L Hct 27.2 L MCV 96.5 H MCH 31.0 MCHC 32.1 RDW 17.6 H Plt Count 144 MPV 8.6 Neutrophils % 70.3 Lymphocytes % 15.3 D Monocytes % 9.2 Eosinophils % 4.5 Basophils % 0.7 PT with INR INR PTT (Actin FS) 35.7 H D Sodium 138 Potassium 5.5 H Chloride 103 Carbon Dioxide 27 Anion Gap 8 BUN 86 H Creatinine 3.2 H Creat Clearance w eGFR 19.78 POC Glucometer Random Glucose 123 H D Calcium 7.8 L Phosphorus 4.7 D Magnesium 2.0 Ferritin Total Bilirubin 0.7 D AST 9 L ALT 15 Alkaline Phosphatase 120 H Creatine Kinase Troponin I B-Natriuretic Peptide Total Protein 6.7 Albumin 2.3 L Urine Color Urine Appearance Urine pH Ur Specific [place] Urine Protein Urine Glucose (UA) Urine Ketones Urine Blood Urine Nitrite Urine Bilirubin Urine Urobilinogen Ur Leukocyte Esterase Urine WBC (Auto) Urine RBC (Auto) Ur Epithelial Cells Urine Bacteria Hyaline Casts Urine Mucus Urine Yeast Ur Random Sodium Ur Random Potassium Ur Random Chloride Ur Random Urea Nitrogn Urine Creatinine Urine Potassium Ur Uric Acid Random Vancomycin 08/07/17 08/07/17 08/07/17 06:33 11:44 12:09 WBC RBC Hgb Hct MCV MCH MCHC RDW Plt Count MPV Neutrophils % Lymphocytes % Monocytes % Eosinophils % Basophils % PT with INR INR PTT (Actin FS) Sodium Potassium Chloride Carbon Dioxide Anion Gap BUN Creatinine Creat Clearance w eGFR POC Glucometer 143 171 Random Glucose Calcium Phosphorus Magnesium Ferritin Total Bilirubin AST ALT Alkaline Phosphatase Creatine Kinase Troponin I B-Natriuretic Peptide Total Protein Albumin Urine Color Urine Appearance Urine pH Ur Specific [place] Urine Protein Urine Glucose (UA) Urine Ketones Urine Blood Urine Nitrite Urine Bilirubin Urine Urobilinogen Ur Leukocyte Esterase Urine WBC (Auto) Urine RBC (Auto) Ur Epithelial Cells Urine Bacteria Hyaline Casts Urine Mucus Urine Yeast Ur Random Sodium Ur Random Potassium Ur Random Chloride Ur Random Urea Nitrogn Urine Creatinine Urine Potassium Ur Uric Acid Random Vancomycin 24.906 08/07/17 08/07/17 08/07/17 15:00 15:00 18:00 WBC RBC Hgb Hct MCV MCH MCHC RDW Plt Count MPV Neutrophils % Lymphocytes % Monocytes % Eosinophils % Basophils % PT with INR INR PTT (Actin FS) Sodium 138 Potassium 6.1 H* Chloride 104 Carbon Dioxide 26 Anion Gap 8 BUN 87 H Creatinine 3.2 H Creat Clearance w eGFR POC Glucometer 191 Random Glucose 182 H D Calcium 7.9 L Phosphorus Magnesium Ferritin 26.951 Total Bilirubin AST ALT Alkaline Phosphatase Creatine Kinase Troponin I B-Natriuretic Peptide Total Protein Albumin Urine Color Urine Appearance Urine pH Ur Specific [place] Urine Protein Urine Glucose (UA) Urine Ketones Urine Blood Urine Nitrite Urine Bilirubin Urine Urobilinogen Ur Leukocyte Esterase Urine WBC (Auto) Urine RBC (Auto) Ur Epithelial Cells Urine Bacteria Hyaline Casts Urine Mucus Urine Yeast Ur Random Sodium Ur Random Potassium Ur Random Chloride Ur Random Urea Nitrogn Urine Creatinine Urine Potassium Ur Uric Acid Random Vancomycin 26.064 08/07/17 08/08/17 08/08/17 20:21 01:59 05:34 WBC 7.3 RBC 2.90 L Hgb 9.0 L Hct 28.2 L MCV 97.0 H MCH 31.1 MCHC 32.0 RDW 17.8 H Plt Count 153 MPV 8.7 Neutrophils % Lymphocytes % Monocytes % Eosinophils % Basophils % PT with INR INR PTT (Actin FS) Sodium Potassium Chloride Carbon Dioxide Anion Gap BUN Creatinine Creat Clearance w eGFR POC Glucometer 179 171 Random Glucose Calcium Phosphorus Magnesium Ferritin Total Bilirubin AST ALT Alkaline Phosphatase Creatine Kinase Troponin I B-Natriuretic Peptide Total Protein Albumin Urine Color Urine Appearance Urine pH Ur Specific [place] Urine Protein Urine Glucose (UA) Urine Ketones Urine Blood Urine Nitrite Urine Bilirubin Urine Urobilinogen Ur Leukocyte Esterase Urine WBC (Auto) Urine RBC (Auto) Ur Epithelial Cells Urine Bacteria Hyaline Casts Urine Mucus Urine Yeast Ur Random Sodium Ur Random Potassium Ur Random Chloride Ur Random Urea Nitrogn Urine Creatinine Urine Potassium Ur Uric Acid Random Vancomycin 08/08/17 08/08/17 08/08/17 05:34 05:34 05:48 WBC RBC Hgb Hct MCV MCH MCHC RDW Plt Count MPV Neutrophils % Lymphocytes % Monocytes % Eosinophils % Basophils % PT with INR 22.20 H INR 1.96 H PTT (Actin FS) Sodium 139 Potassium 5.7 H Chloride 104 Carbon Dioxide 28 Anion Gap 7 L BUN 92 H Creatinine 3.2 H Creat Clearance w eGFR 19.78 POC Glucometer 130 Random Glucose 125 H D Calcium 7.8 L Phosphorus Magnesium Ferritin 25.672 Total Bilirubin 0.6 AST 13 L D ALT 15 Alkaline Phosphatase 122 H Creatine Kinase Troponin I B-Natriuretic Peptide Total Protein 6.9 Albumin 2.4 L Urine Color Urine Appearance Urine pH Ur Specific [place] Urine Protein Urine Glucose (UA) Urine Ketones Urine Blood Urine Nitrite Urine Bilirubin Urine Urobilinogen Ur Leukocyte Esterase Urine WBC (Auto) Urine RBC (Auto) Ur Epithelial Cells Urine Bacteria Hyaline Casts Urine Mucus Urine Yeast Ur Random Sodium Ur Random Potassium Ur Random Chloride Ur Random Urea Nitrogn Urine Creatinine Urine Potassium Ur Uric Acid Random Vancomycin 08/08/17 08/08/17 07:35 11:53 WBC RBC Hgb Hct MCV MCH MCHC RDW Plt Count MPV Neutrophils % Lymphocytes % Monocytes % Eosinophils % Basophils % PT with INR INR PTT (Actin FS) Sodium Potassium Chloride Carbon Dioxide Anion Gap BUN Creatinine Creat Clearance w eGFR POC Glucometer 193 Random Glucose Calcium Phosphorus Magnesium Ferritin Total Bilirubin AST ALT Alkaline Phosphatase Creatine Kinase Troponin I B-Natriuretic Peptide Total Protein Albumin Urine Color Urine Appearance Urine pH Ur Specific [place] Urine Protein Urine Glucose (UA) Urine Ketones Urine Blood Urine Nitrite Urine Bilirubin Urine Urobilinogen Ur Leukocyte Esterase Urine WBC (Auto) Urine RBC (Auto) Ur Epithelial Cells Urine Bacteria Hyaline Casts Urine Mucus Urine Yeast Ur Random Sodium Ur Random Potassium Ur Random Chloride Ur Random Urea Nitrogn Urine Creatinine Urine Potassium Ur Uric Acid Random Vancomycin 24.472 Imaging - Results Chest X-ray: Report Reviewed Problem List - Problems (1) Acute renal insufficiency Code(s): N28.9 - DISORDER OF KIDNEY AND URETER, UNSPECIFIED (2) Atrial fibrillation Code(s): I48.91 - UNSPECIFIED ATRIAL FIBRILLATION Qualifiers: Atrial fibrillation type: chronic Qualified Code(s): I48.2 - Chronic atrial fibrillation (3) BPH (benign prostatic hyperplasia) Code(s): N40.0 - BENIGN PROSTATIC HYPERPLASIA WITHOUT LOWER URINRY TRACT SYMP (4) CHF (congestive heart failure) Code(s): I50.9 - HEART FAILURE, UNSPECIFIED Qualifiers: Heart failure type: unspecified Heart failure chronicity: acute on chronic Qualified Code(s): I50.9 - Heart failure, unspecified (5) Acute renal failure (ARF) Code(s): N17.9 - ACUTE KIDNEY FAILURE, UNSPECIFIED (6) CAD (coronary artery disease) Code(s): I25.10 - ATHSCL HEART DISEASE OF [place] CORONARY ARTERY W/O ANG PCTRS (7) COPD (chronic obstructive pulmonary disease) Code(s): J44.9 - CHRONIC OBSTRUCTIVE PULMONARY DISEASE, UNSPECIFIED (8) Cellulitis of right leg Code(s): L03.115 - CELLULITIS OF RIGHT LOWER LIMB (9) Diabetes Code(s): E11.9 - TYPE 2 DIABETES MELLITUS WITHOUT COMPLICATIONS (10) Dyslipidemia Code(s): E78.5 - HYPERLIPIDEMIA, UNSPECIFIED (11) Obesities, morbid Code(s): E66.01 - MORBID (SEVERE) OBESITY DUE TO EXCESS CALORIES (12) Open left ankle fracture Code(s): S82.892B - OTH FRACTURE OF LEFT LOWER LEG, INIT FOR OPN FX TYPE I/2 Qualifiers: Encounter type: initial encounter (13) Sleep apnea Code(s): G47.30 - SLEEP APNEA, UNSPECIFIED (14) Venous (peripheral) insufficiency Code(s): I87.2 - VENOUS INSUFFICIENCY (CHRONIC) (PERIPHERAL) (15) Venous ulcer Code(s): I87.8 - OTHER SPECIFIED DISORDERS OF VEINS Assessment/Plan 61 y.o. male with PMH of DM, morbid obesity, CAD, CHF, AFIB, CKD, BPH, LLE compound fracture s/p external fixation with hardware in place, RLE cellulitis, LE infected ulcers receiving IV antibiotics in NH presenting with urinary retention, KRUNAL and generalized rash and elevated Vancomycin levels Hx of RLE cellulitis/LLE infected ulcers - appears to have improved Rash - possible antibiotic allergy, currently resolving KRUNAL on CKD Urinary retention - pt afebrile, without leukocytosis - urine cultures no growth - monitor off antibiotics for now - continue wound care - /nephrology following Thank you
[2017-08-08] MEDS: ATORVASTATIN CA 80 MG TABLET (FP) PO SCH (21:58)
[2017-08-08] MEDS: ACETAMINOPHEN 325 MG TABLET (FP) PO SCH (23:18)
[2017-08-09] MEDS: ALBUTEROL SO4 2.5/IPRATROPIUM 0.5 INH SOL 3 ML VIAL.NEB. NEB PRN ×4 (01:14→23:08)
[2017-08-09 06:06] LABS: SERUM IRON SATURATION 11 % (15-55); TOTAL IRON BINDING CAPACITY 303 ug/dL (250-450); UIBC 269 ug/dL (111-343)
[2017-08-09 06:06] LABS: SERUM IRON SATURATION 11 % (15-55); TOTAL IRON BINDING CAPACITY 300 ug/dL (250-450); UIBC 266 ug/dL (111-343)
[2017-08-09 06:06] LABS: HEMATOCRIT 28.2 % (35.4-49); HEMOGLOBIN 9.3 GM/dL (11.7-16.9); MCH 31.9 pg (25.7-33.7); MEAN CELL VOLUME 96.6 fl (80-96); MEAN PLT VOLUME 8.6 fl (7.5-11.1); PLATELET COUNT 162 K/MM3 (134-434); RBC 2.92 M/mm3 (4.00-5.60); RDW 17.7 % (11.9-15.9); WHITE BLOOD COUNT 6.1 K/mm3 (4.0-10.0)
[2017-08-09] MEDS: DOCUSATE SODIUM 100 MG CAPSULE (FP) PO SCH ×3 (06:31→22:02)
[2017-08-09] MEDS: INSULIN (LEVEMIR) 100 UNITS/ML UNITS SQ SCH ×2 (06:35→22:03)
[2017-08-09] MEDS: FUROSEMIDE 40 MG TABLET (FP) PO SCH ×2 (06:36→14:44)
[2017-08-09] MEDS: LEVOTHYROXINE NA 100 MCG TABLET (FP) PO SCH (06:36)
[2017-08-09 06:37] LABS: ALBUMIN 2.5 g/dl (3.4-5.0); ANION GAP 6 (8-16); BILIRUBIN,TOTAL 0.6 mg/dL (0.2-1.0); BLOOD UREA NITROGEN 94 mg/dL (7-18); CALCIUM 7.9 mg/dL (8.5-10.1); CHLORIDE 104 mmol/L (98-107); CO2 28 mmol/L (21-32); CREATININE 3.1 mg/dL (0.7-1.3); GLUCOSE,RANDOM 146 mg/dL (74-106); POTASSIUM 5.4 mmol/L (3.5-5.1); SGOT/AST 11 U/L (15-37); SGPT/ALT 14 U/L (12-78); SODIUM 138 mmol/L (136-145); TOT PROT 6.9 g/dl (6.4-8.2)
[2017-08-09 06:38] LABS: ALK PHOS 125 U/L (45-117)
[2017-08-09] MEDS: INSULIN SLIDING SCALE (NOVOLOG) 1 VIAL SQ SCH ×4 (06:39→21:51)
[2017-08-09] MEDS: oxyCODONE HCL 5 MG TABLET PO PRN ×4 (06:42→20:13)
--- NOTE | 2017-08-09 08:33 | PN ---
Progress Note, Physician Chief Complaint: 61 y.o M was sent back to [facility] due to decreased UA output, increased edema, body rash. History of Present Illness: Recent hospitalization for acute cellulitis RLE after fall [employer]. The patient sustained open left ankle fracture while at [facility] and had subsequent external fixation by Dr. Thayer Morbid obesity. ASHLEY. Bilateral PE. Pulmonary HTN-CTEPH , ASHLEY AND CLASS 2 PAH. CHF-mostly diastolic. ASHD. STEMI in 2016 with MICHAEL x2 placed at [place]. Chronic A.Fib-on a/c-Xarelto/ASA now. Gout. Gouty arthritis CKD 3 DM type 2. Chronic DVT Right thigh, Stasis ulcers, edema. Chronic wound right Ankle/dobbs-RX at [facility]-groing multiple organisms. - Current Medication List Current Medications: Active Medications Acetaminophen (Tylenol -) 650 mg PO HS [facility] Last Admin: 08/08/17 23:18 Dose: 650 mg Albuterol/Ipratropium (Duoneb -) 1 amp NEB Q6H PRN PRN Reason: SHORTNESS OF BREATH Last Admin: 08/09/17 07:43 Dose: 1 amp Atenolol (Tenormin -) 100 mg PO BID [facility] Last Admin: 08/08/17 21:49 Dose: Not Given Atorvastatin Calcium (Lipitor -) 80 mg PO HS [facility] Last Admin: 08/08/17 21:58 Dose: 80 mg Bisacodyl (Dulcolax -) 10 mg PO DAILY [facility] Last Admin: 08/08/17 09:11 Dose: Not Given Collagenase (Santyl -) 1 applic TP DAILY [facility] Last Admin: 08/08/17 09:11 Dose: 1 applic Docusate Sodium (Colace -) 100 mg PO TID [facility] Last Admin: 08/09/17 06:31 Dose: Not Given Furosemide (Lasix -) 80 mg PO BIDLASIX [facility] Last Admin: 08/09/17 06:36 Dose: 80 mg Insulin Aspart (Novolog Vial Sliding Scale -) 1 vial SQ ACHS [facility] PRN Reason: Protocol Last Admin: 08/09/17 06:39 Dose: Not Given Insulin Detemir (Levemir Vial) 40 units SQ BID@0700,2200 [facility] Last Admin: 08/09/17 06:35 Dose: 40 units Levothyroxine Sodium (Synthroid -) 100 mcg PO DAILY@0700 [facility] Last Admin: 08/09/17 06:36 Dose: 100 mcg Metronidazole (Metrogel 0.75% Gel -) 1 applic TP BID [facility] Last Admin: 08/08/17 21:58 Dose: 1 applic Mupirocin (Bactroban 2% Ointment -) 1 applic TP DAILY [facility] Last Admin: 08/08/17 09:09 Dose: 1 applic Non-Formulary Medication (Linaclotide [Linzess]) 290 mcg PO DAILY [facility] Nystatin (Mycostatin Cream -) 1 applic TP BID [facility] Oxycodone HCl (Roxicodone -) 10 mg PO HS [facility] Last Admin: 08/08/17 23:16 Dose: 10 mg Oxycodone HCl (Roxicodone -) 10 mg PO Q4H PRN PRN Reason: PAIN LEVEL 6-10 Last Admin: 08/09/17 06:42 Dose: 10 mg Rivaroxaban (Xarelto -) 15 mg PO DAILY [facility] Last Admin: 08/08/17 09:12 Dose: 15 mg Tamsulosin HCl (Flomax -) 0.4 mg PO DAILY@0830 [facility] Last Admin: 08/08/17 09:09 Dose: 0.4 mg - Objective Vital Signs: Vital Signs Temperature 98 F 08/09/17 05:00 Pulse Rate 70 08/09/17 05:00 Respiratory Rate 19 08/09/17 05:00 Blood Pressure 120/62 08/09/17 05:00 O2 Sat by Pulse Oximetry (%) 100 08/08/17 20:40 Constitutional: Yes: No Distress, Calm, Obese Eyes: Yes: Conjunctiva Clear, EOM Intact HENT: Yes: Atraumatic, Normocephalic. No: Drooling Neck: Yes: Supple, Trachea Midline. No: Lymphadenopathy Cardiovascular: Yes: Pulse Irregular, S1, S2. No: JVD Respiratory: Yes: Regular, CTA Bilaterally, On BiPap, SOB. No: Tachypnea, Wheezes Gastrointestinal: Yes: Normal Bowel Sounds, Soft, Abdomen, Obese. No: Ascites, Palpable Mass, Tenderness ...Rectal Exam: Yes: Deferred Genitourinary: Yes: Boyle Present. No: Anuria, Bladder Distention, CVA Tenderness - Left, CVA Tenderness - Right Breast(s): Yes: WNL Musculoskeletal: Yes: Muscle Pain Extremities: Yes: Other (Chronic stasis changes LE) Edema: Yes Edema: RUE: 1+, LLE: 1+ Peripheral Pulses WNL: No Integumentary: Yes: Rash (macular-papular . Erythema of genitals- Candidal itertrigo), Other Neurological: Yes: Alert. No: Aphasia, Asterixis, Dysarthria, Seizure, Unresponsive Psychiatric: Yes: Alert. No: Agitated, Suicidal Ideation Labs: CBC, BMP 08/09/17 05:48 08/09/17 05:48 INR, PTT INR 1.96 (0.82-1.09) H 08/08/17 05:34 Problem List - Problems (1) Acute renal insufficiency Assessment/Plan: Hyperkalemia-. Follow BMP Keyexalate PO. Code(s): N28.9 - DISORDER OF KIDNEY AND URETER, UNSPECIFIED (2) Atrial fibrillation Assessment/Plan: D/C Xarelto due to eGFR 20 Will start Heparin IV 08/10/17 Code(s): I48.91 - UNSPECIFIED ATRIAL FIBRILLATION Qualifiers: Atrial fibrillation type: chronic Qualified Code(s): I48.2 - Chronic atrial fibrillation (3) BPH (benign prostatic hyperplasia) Assessment/Plan: Continue Boyle, Flomax as per Dr Ivy Code(s): N40.0 - BENIGN PROSTATIC HYPERPLASIA WITHOUT LOWER URINRY TRACT SYMP (4) CHF (congestive heart failure) Assessment/Plan: IV Lasix , Follow edema, UA output Code(s): I50.9 - HEART FAILURE, UNSPECIFIED Qualifiers: Heart failure type: unspecified Heart failure chronicity: acute on chronic Qualified Code(s): I50.9 - Heart failure, unspecified (5) Accident due to mechanical fall without injury Assessment/Plan: Dr Thayer F/u PT Code(s): W19.XXXA - UNSPECIFIED FALL, INITIAL ENCOUNTER Qualifiers: Encounter type: subsequent encounter Qualified Code(s): W19.XXXD - Unspecified fall, subsequent encounter
[2017-08-09] MEDS ORDERED: SODIUM POLYSTYRENE SULFONATE 15 GM/60 ML BOTTLE PO ONE (08:44)
[2017-08-09] MEDS ORDERED: HEPARIN SOD,PORK IN 0.45% NACL 25,000 UNITS/500 ML INFUS.BAG IVPB SCH (08:45)
[2017-08-09] MEDS ORDERED: HEPARIN NA (PORCINE) 5,000 UNITS/ML 1ML VIAL IVPUSH PRN (08:45)
--- NOTE | 2017-08-09 08:55 | PN ---
Progress Note, Physician Chief Complaint: no acute distress History of Present Illness: no cp or sob - Current Medication List Current Medications: Active Medications Acetaminophen (Tylenol -) 650 mg PO HS [facility] Last Admin: 08/08/17 23:18 Dose: 650 mg Albuterol/Ipratropium (Duoneb -) 1 amp NEB Q6H PRN PRN Reason: SHORTNESS OF BREATH Last Admin: 08/09/17 07:43 Dose: 1 amp Atenolol (Tenormin -) 100 mg PO BID [facility] Last Admin: 08/08/17 21:49 Dose: Not Given Atorvastatin Calcium (Lipitor -) 80 mg PO HS [facility] Last Admin: 08/08/17 21:58 Dose: 80 mg Bisacodyl (Dulcolax -) 10 mg PO DAILY [facility] Last Admin: 08/08/17 09:11 Dose: Not Given Collagenase (Santyl -) 1 applic TP DAILY [facility] Last Admin: 08/08/17 09:11 Dose: 1 applic Docusate Sodium (Colace -) 100 mg PO TID [facility] Last Admin: 08/09/17 06:31 Dose: Not Given Furosemide (Lasix -) 80 mg PO BIDLASIX [facility] Last Admin: 08/09/17 06:36 Dose: 80 mg Heparin Sodium (Porcine) (Heparin -) 5,000 unit IVPUSH PRN PRN PRN Reason: HEPARIN PROTOCOL Heparin Sodium (Porcine) (Heparin -) 1,000 unit IVPUSH PRN PRN PRN Reason: HEPARIN PROTOCOL HEPARIN SOD,PORK IN 0.45% NACL (Heparin-1/2ns 25,000 Units/500) 25,000 units in 500 mls @ 20 mls/hr IVPB TITR NEIL; 1,000 UNITS/HR PRN Reason: Protocol Insulin Aspart (Novolog Vial Sliding Scale -) 1 vial SQ ACHS [facility] PRN Reason: Protocol Last Admin: 08/09/17 06:39 Dose: Not Given Insulin Detemir (Levemir Vial) 40 units SQ BID@0700,2200 [facility] Last Admin: 08/09/17 06:35 Dose: 40 units Levothyroxine Sodium (Synthroid -) 100 mcg PO DAILY@0700 [facility] Last Admin: 08/09/17 06:36 Dose: 100 mcg Metronidazole (Metrogel 0.75% Gel -) 1 applic TP BID [facility] Last Admin: 08/08/17 21:58 Dose: 1 applic Mupirocin (Bactroban 2% Ointment -) 1 applic TP DAILY [facility] Last Admin: 08/08/17 09:09 Dose: 1 applic Non-Formulary Medication (Linaclotide [Linzess]) 290 mcg PO DAILY [facility] Nystatin (Mycostatin Cream -) 1 applic TP BID [facility] Oxycodone HCl (Roxicodone -) 10 mg PO HS [facility] Last Admin: 08/08/17 23:16 Dose: 10 mg Oxycodone HCl (Roxicodone -) 10 mg PO Q4H PRN PRN Reason: PAIN LEVEL 6-10 Last Admin: 08/09/17 06:42 Dose: 10 mg Tamsulosin HCl (Flomax -) 0.4 mg PO DAILY@0830 [facility] Last Admin: 08/08/17 09:09 Dose: 0.4 mg - Objective Vital Signs: Vital Signs Temperature 98 F 08/09/17 05:00 Pulse Rate 70 08/09/17 05:00 Respiratory Rate 19 08/09/17 05:00 Blood Pressure 120/62 08/09/17 05:00 O2 Sat by Pulse Oximetry (%) 100 08/08/17 20:40 Constitutional: Yes: Calm Cardiovascular: Yes: Pulse Irregular Respiratory: Yes: Rhonchi Gastrointestinal: Yes: Soft, Abdomen, Obese Edema: Yes Edema: LLE: 1+, RLE: 1+ Neurological: Yes: Alert Labs: CBC, BMP 08/09/17 05:48 08/09/17 05:48 INR, PTT INR 1.96 (0.82-1.09) H 08/08/17 05:34 Laboratory Tests 08/07/17 08/08/17 08/08/17 15:00 05:34 05:34 WBC Hgb Plt Count INR 1.96 H Potassium 6.1 H* 5.7 H Creatinine 08/09/17 08/09/17 05:48 05:48 WBC 6.1 Hgb 9.3 L Plt Count 162 INR Potassium 5.4 H Creatinine 3.1 H - ....Imaging EKG: Image Reviewed (rate ccontrolled AF) Assessment/Plan IMP: Acute on chronic RF, hyperK+ Permanent AF CAD s/p PCI ASHLEY Chronic diastolic CHF REC: 1. Hold NOAC, use heparin gtts in setting ARF 2. HyperK improved, cont tele until K+ stable 3. Further Rx ARF as per PMD and Urology
[2017-08-09] MEDS: TAMSULOSIN HCL 0.4 MG CAP.ER.24H (FP) PO SCH (09:44)
[2017-08-09] MEDS: MUPIROCIN 2% TOPICAL OINTMENT 22 GM TUBE TP SCH (09:44)
[2017-08-09] MEDS: BISACODYL 5 MG TABLET.DR (FP) PO SCH (09:45)
[2017-08-09] MEDS: metroNIDAZOLE 0.75% TOPICAL GEL 45 GM TUBE TP SCH ×2 (09:45→22:02)
[2017-08-09] MEDS: COLLAGENASE CLOSTRIDIUM HIST. 30 GRAMS TUBE TP SCH (09:46)
[2017-08-09] MEDS: ATENOLOL 50 MG TABLET (FP) PO SCH ×2 (09:48→22:03)
[2017-08-09] MEDS: NYSTATIN 100,000 UNIT/GM TOPICAL CREAM 15 GM TUBE TP SCH ×2 (14:44→22:02)
--- NOTE | 2017-08-09 15:39 | CON.ORTH ---
Consult Reason for Consultation:: f/u left ankle fx s/p ex fix - Past Medical History [employer]: Yes: Peripheral Neuropathy Cardio/Vascular: Yes: AFIB, CHF (tolicDias) Pulmonary: Yes: Pulmonary Embolus, Sleep Apnea, Other Gastrointestinal: Yes: Constipation Hepatobiliary: Yes: Cholelithiasis Renal/: Yes: Renal Inusuff Infectious Disease: Yes: Other (RLE cellulitis/ infected LE ulcers ) Psych: Yes: Depression Musculoskeletal: Yes: Chronic low back pain Rheumatology: Yes: Gout Endocrine: Yes: Diabetes Mellitus, Hypothyroidism - Past Surgical History Past Surgical History: Yes: Stent Additional Surgical History: LLE external fixation - Alcohol/Substance Use Hx Alcohol Use: No History of Substance Use: reports: None - Smoking History Smoking history: Former smoker Have you smoked in the past 12 months: No Aproximately how many cigarettes per day: 0 If you are a former smoker, when did you quit?: 1992 - Social History ADL: Independent History of Recent Travel: No Home Medications - Allergies Allergies/Adverse Reactions: Allergies Allergy/AdvReac Type Severity Reaction Status Date / Time Sulfa (Sulfonamide Allergy Intermediate Rash Verified 08/06/17 17:07 Antibiotics) - Home Medications Home Medications: Ambulatory Orders Albuterol 2.5/Ipratropium 0.5 [Duoneb -] 1 neb NEB Q4H PRN 08/06/17 Atenolol [Tenormin] 100 mg PO BID 08/06/17 Atorvastatin Calcium 80 mg PO HS 08/06/17 Bisacodyl 10 mg PO DAILY 08/06/17 Clotrimazole 15 gm TP DAILY 08/06/17 Collagenase Clostridium Hist. [Santyl] 1 applic TP DAILY 08/06/17 Diphenhydramine HCl [Benadryl -] 50 mg PO DAILY 08/06/17 Febuxostat [Uloric -] 40 mg PO DAILY 08/06/17 Furosemide [Lasix] 80 mg PO BID 08/06/17 Glipizide 10 mg PO BID 08/06/17 Insulin (Novolog) [Novolog] 0 units SQ AC 08/06/17 Insulin Glargine,Hum.rec.anlog [Lantus] 80 unit SQ HS 08/06/17 Ipratropium/Albuterol Sulfate [Iprat-Albut 0.5-3(2.5) mg/3 ml] 3 ml IH Q6H 08/06 Levothyroxine [Synthroid -] 100 mcg PO DAILY 08/06/17 Linaclotide [Linzess] 290 mcg PO DAILY 08/06/17 Liraglutide [Victoza -] 1.8 mg SQ DAILY 08/06/17 Mupirocin Ointment [Bactroban] 1 applic TP DAILY 08/06/17 Oxycodone HCl 10 mg PO Q4H PRN 08/06/17 Oxycodone HCl/Acetaminophen [Percocet 5-325 mg Tablet] 2 tab PO HS 08/06/17 Polyethylene Glycol 3350 [Miralax (For Daily Use) -] 17 gm PO BID 08/06/17 Pramoxine HCl/Calamine [Calamine Medicated Lotion] 177 ml TP DAILY 08/06/17 Rivaroxaban [Xarelto -] 15 mg PO DAILY 08/06/17 Vancomycin HCl 1 gm IV DAILY 08/06/17 metroNIDAZOLE 0.75% GEL [Metrogel 0.75% Gel -] 1 applic TP BID 08/06/17 Physical Exam for Ortho Vital Signs: Vital Signs Temperature 98.7 F 08/09/17 15:33 Pulse Rate 76 08/09/17 15:33 Respiratory Rate 20 08/09/17 15:33 Blood Pressure 92/47 08/09/17 15:33 O2 Sat by Pulse Oximetry (%) 98 08/09/17 09:00 Labs: CBC, BMP 08/09/17 05:48 08/09/17 05:48 INR, PTT INR 1.96 (0.82-1.09) H 08/08/17 05:34 - Lower Extremity Ankle: Yes: Left, Limited ROM, Pain, Swelling, Tenderness, Other (ex fix in place- pin sites clean, some slight drainage from lac site, nvi) Imaging - Results X-ray: Image Reviewed Assessment/Plan 61 yo M with h/o HTN, DM, CAD,MICHAEL x 2, DVT, diastolic CHF, A fib with RvR, CKD stage 3, morbid obesity, LE ulcers, s/p left ankle ex fix after fx/dislocation of ankle. Adnitted for decreased urinary output. a/p- left ankle raman fx/dislocation s/p ex fix xrays show maintained position in acceptable position Maintain ex fix elevation daily dressing changes wound care f/u nwb d/w Dr. Thayer
--- NOTE | 2017-08-09 16:12 | PN ---
Progress Note, Physician History of Present Illness: Pt seen and examined at bedside. He denies chest pain. - Current Medication List Current Medications: Active Medications Acetaminophen (Tylenol -) 650 mg PO HS [facility] Last Admin: 08/08/17 23:18 Dose: 650 mg Albuterol/Ipratropium (Duoneb -) 1 amp NEB Q6H PRN PRN Reason: SHORTNESS OF BREATH Last Admin: 08/09/17 07:43 Dose: 1 amp Atenolol (Tenormin -) 100 mg PO BID [facility] Last Admin: 08/09/17 09:48 Dose: Not Given Atorvastatin Calcium (Lipitor -) 80 mg PO HS [facility] Last Admin: 08/08/17 21:58 Dose: 80 mg Bisacodyl (Dulcolax -) 10 mg PO DAILY [facility] Last Admin: 08/09/17 09:45 Dose: 10 mg Collagenase (Santyl -) 1 applic TP DAILY [facility] Last Admin: 08/09/17 09:46 Dose: 1 applic Docusate Sodium (Colace -) 100 mg PO TID [facility] Last Admin: 08/09/17 14:45 Dose: 100 mg Furosemide (Lasix -) 80 mg PO BIDLASIX [facility] Last Admin: 08/09/17 14:44 Dose: 80 mg Heparin Sodium (Porcine) (Heparin -) 5,000 unit IVPUSH PRN PRN PRN Reason: HEPARIN PROTOCOL Heparin Sodium (Porcine) (Heparin -) 1,000 unit IVPUSH PRN PRN PRN Reason: HEPARIN PROTOCOL HEPARIN SOD,PORK IN 0.45% NACL (Heparin-1/2ns 25,000 Units/500) 25,000 units in 500 mls @ 20 mls/hr IVPB TITR NEIL; 1,000 UNITS/HR PRN Reason: Protocol Insulin Aspart (Novolog Vial Sliding Scale -) 1 vial SQ ACHS [facility] PRN Reason: Protocol Last Admin: 08/09/17 11:43 Dose: 2 units Insulin Detemir (Levemir Vial) 40 units SQ BID@0700,2200 [facility] Last Admin: 08/09/17 06:35 Dose: 40 units Levothyroxine Sodium (Synthroid -) 100 mcg PO DAILY@0700 [facility] Last Admin: 08/09/17 06:36 Dose: 100 mcg Metronidazole (Metrogel 0.75% Gel -) 1 applic TP BID [facility] Last Admin: 08/09/17 09:45 Dose: 1 applic Mupirocin (Bactroban 2% Ointment -) 1 applic TP DAILY [facility] Last Admin: 08/09/17 09:44 Dose: 1 applic Non-Formulary Medication (Linaclotide [Linzess]) 290 mcg PO DAILY [facility] Nystatin (Mycostatin Cream -) 1 applic TP BID [facility] Last Admin: 08/09/17 14:44 Dose: 1 applic Oxycodone HCl (Roxicodone -) 10 mg PO HS [facility] Last Admin: 08/08/17 23:16 Dose: 10 mg Oxycodone HCl (Roxicodone -) 10 mg PO Q4H PRN PRN Reason: PAIN LEVEL 6-10 Last Admin: 08/09/17 11:12 Dose: 10 mg Tamsulosin HCl (Flomax -) 0.4 mg PO DAILY@0830 [facility] Last Admin: 08/09/17 09:44 Dose: 0.4 mg - Objective Vital Signs: Vital Signs Temperature 98.7 F 08/09/17 15:33 Pulse Rate 76 08/09/17 15:33 Respiratory Rate 20 08/09/17 15:33 Blood Pressure 92/47 08/09/17 15:33 O2 Sat by Pulse Oximetry (%) 98 08/09/17 09:00 Constitutional: Yes: Calm Eyes: Yes: Conjunctiva Clear HENT: Yes: Atraumatic Cardiovascular: Yes: S1, S2 Respiratory: Yes: Other (on cpap) Gastrointestinal: Yes: Soft, Abdomen, Obese Genitourinary: Yes: Boyle Present Edema: Yes Edema: LLE: 2+, RLE: 2+ Integumentary: Yes: Venous Stasis Changes Neurological: Yes: Oriented Psychiatric: Yes: Oriented Labs: CBC, BMP 08/09/17 05:48 08/09/17 05:48 INR, PTT INR 1.96 (0.82-1.09) H 08/08/17 05:34 Problem List - Problems (1) Acute renal insufficiency Code(s): N28.9 - DISORDER OF KIDNEY AND URETER, UNSPECIFIED (2) Atrial fibrillation Code(s): I48.91 - UNSPECIFIED ATRIAL FIBRILLATION Qualifiers: Atrial fibrillation type: chronic Qualified Code(s): I48.2 - Chronic atrial fibrillation (3) BPH (benign prostatic hyperplasia) Code(s): N40.0 - BENIGN PROSTATIC HYPERPLASIA WITHOUT LOWER URINRY TRACT SYMP (4) CHF (congestive heart failure) Code(s): I50.9 - HEART FAILURE, UNSPECIFIED Qualifiers: Heart failure type: unspecified Heart failure chronicity: acute on chronic Qualified Code(s): I50.9 - Heart failure, unspecified (5) Acute renal failure (ARF) Code(s): N17.9 - ACUTE KIDNEY FAILURE, UNSPECIFIED (6) CAD (coronary artery disease) Code(s): I25.10 - ATHSCL HEART DISEASE OF [place] CORONARY ARTERY W/O ANG PCTRS (7) CKD (chronic kidney disease) Code(s): N18.9 - CHRONIC KIDNEY DISEASE, UNSPECIFIED (8) Cellulitis Code(s): L03.90 - CELLULITIS, UNSPECIFIED Assessment/Plan Current Medications Generic Name Dose Route Start Last Admin Trade Name Freq PRN Reason Stop Dose Admin Acetaminophen 650 mg 08/07/17 22:00 08/07/17 22:35 Tylenol - PO Not Given HS NEIL Albuterol/Ipratropium 1 amp 08/07/17 15:15 08/08/17 10:05 Duoneb - NEB 1 amp Q6H PRN Administration SHORTNESS OF BREATH Atenolol 100 mg 08/07/17 13:35 08/08/17 09:12 Tenormin - PO Not Given BID NEIL Atorvastatin Calcium 80 mg 08/07/17 22:00 08/07/17 21:50 Lipitor - PO 80 mg HS NEIL Administration Bisacodyl 10 mg 08/07/17 10:00 08/08/17 09:11 Dulcolax - PO Not Given DAILY NEIL Collagenase 1 applic 08/07/17 10:00 08/08/17 09:11 Santyl - TP 1 applic DAILY NEIL Administration Docusate Sodium 100 mg 08/07/17 13:45 08/08/17 13:48 Colace - PO Not Given TID NEIL Furosemide 80 mg 08/07/17 06:00 08/08/17 13:44 Lasix - PO 80 mg BIDLASIX NEIL Administration Insulin Aspart 1 vial 08/07/17 07:00 08/08/17 11:54 Novolog Vial Sliding Scale - SQ Not Given ACHS [facility] Protocol Insulin Detemir 40 units 08/07/17 07:00 08/08/17 06:37 Levemir Vial SQ 40 units BID@0700,2200 NEIL Administration Levothyroxine Sodium 100 mcg 08/07/17 07:00 08/08/17 06:38 Synthroid - PO 100 mcg DAILY@0700 NEIL Administration Metronidazole 1 applic 08/07/17 10:00 08/08/17 09:11 Metrogel 0.75% Gel - TP 1 applic BID NEIL Administration Mupirocin 1 applic 08/07/17 10:00 08/08/17 09:09 Bactroban 2% Ointment - TP 1 applic DAILY NEIL Administration Non-Formulary Medication 290 mcg 08/07/17 10:00 Linaclotide [Linzess] PO DAILY NEIL Oxycodone HCl 10 mg 08/07/17 22:00 08/08/17 01:47 Roxicodone - PO 10 mg HS NEIL Administration Oxycodone HCl 10 mg 08/07/17 03:52 08/08/17 09:13 Roxicodone - PO 10 mg Q4H PRN Administration PAIN LEVEL 6-10 Rivaroxaban 15 mg 08/07/17 10:00 08/08/17 09:12 Xarelto - PO 15 mg DAILY NEIL Administration Senna 2 tab 08/07/17 13:33 Senna - PO HS PRN CONSTIPATION Tamsulosin HCl 0.4 mg 08/07/17 11:45 08/08/17 09:09 Flomax - PO 0.4 mg DAILY@0830 NEIL Administration Impression 1. CKD 2. KRUNAL 3. volume overload 4. obesity 5. CAD 6. cellulitis 7. s/p fall 8. a-fib 9. DM 10. hypothyroidism 11. HLD 12. CHF 13. s/p leg fracture 14. hyperkalemia 15. constipation Plan - cont to monitor renal function - potassium is improving, cont medical management - repeat labs in am - discussed plan with pts - ID follow up - bp remains low - monitor urine output - renal diet - cont wound care
--- NOTE | 2017-08-09 20:54 | PN ---
Progress Note, Physician History of Present Illness: stable leg looks better on bipap - Current Medication List Current Medications: Active Medications Acetaminophen (Tylenol -) 650 mg PO HS [facility] Last Admin: 08/08/17 23:18 Dose: 650 mg Albuterol/Ipratropium (Duoneb -) 1 amp NEB Q6H PRN PRN Reason: SHORTNESS OF BREATH Last Admin: 08/09/17 17:53 Dose: 1 amp Atenolol (Tenormin -) 100 mg PO BID [facility] Last Admin: 08/09/17 09:48 Dose: Not Given Atorvastatin Calcium (Lipitor -) 80 mg PO HS [facility] Last Admin: 08/08/17 21:58 Dose: 80 mg Bisacodyl (Dulcolax -) 10 mg PO DAILY [facility] Last Admin: 08/09/17 09:45 Dose: 10 mg Collagenase (Santyl -) 1 applic TP DAILY [facility] Last Admin: 08/09/17 09:46 Dose: 1 applic Docusate Sodium (Colace -) 100 mg PO TID [facility] Last Admin: 08/09/17 14:45 Dose: 100 mg Furosemide (Lasix -) 80 mg PO BIDLASIX [facility] Last Admin: 08/09/17 14:44 Dose: 80 mg Heparin Sodium (Porcine) (Heparin -) 5,000 unit IVPUSH PRN PRN PRN Reason: HEPARIN PROTOCOL Heparin Sodium (Porcine) (Heparin -) 1,000 unit IVPUSH PRN PRN PRN Reason: HEPARIN PROTOCOL HEPARIN SOD,PORK IN 0.45% NACL (Heparin-1/2ns 25,000 Units/500) 25,000 units in 500 mls @ 20 mls/hr IVPB TITR NEIL; 1,000 UNITS/HR PRN Reason: Protocol Insulin Aspart (Novolog Vial Sliding Scale -) 1 vial SQ ACHS [facility] PRN Reason: Protocol Last Admin: 08/09/17 16:57 Dose: Not Given Insulin Detemir (Levemir Vial) 40 units SQ BID@0700,2200 [facility] Last Admin: 08/09/17 06:35 Dose: 40 units Levothyroxine Sodium (Synthroid -) 100 mcg PO DAILY@0700 [facility] Last Admin: 08/09/17 06:36 Dose: 100 mcg Metronidazole (Metrogel 0.75% Gel -) 1 applic TP BID [facility] Last Admin: 08/09/17 09:45 Dose: 1 applic Mupirocin (Bactroban 2% Ointment -) 1 applic TP DAILY [facility] Last Admin: 08/09/17 09:44 Dose: 1 applic Non-Formulary Medication (Linaclotide [Linzess]) 290 mcg PO DAILY [facility] Nystatin (Mycostatin Cream -) 1 applic TP BID [facility] Last Admin: 08/09/17 14:44 Dose: 1 applic Oxycodone HCl (Roxicodone -) 10 mg PO HS [facility] Last Admin: 08/08/17 23:16 Dose: 10 mg Oxycodone HCl (Roxicodone -) 10 mg PO Q4H PRN PRN Reason: PAIN LEVEL 6-10 Last Admin: 08/09/17 20:13 Dose: 10 mg Tamsulosin HCl (Flomax -) 0.4 mg PO DAILY@0830 [facility] Last Admin: 08/09/17 09:44 Dose: 0.4 mg - Objective Vital Signs: Vital Signs Temperature 97.9 F 08/09/17 18:00 Pulse Rate 82 08/09/17 18:00 Respiratory Rate 20 08/09/17 18:00 Blood Pressure 115/61 08/09/17 18:00 O2 Sat by Pulse Oximetry (%) 98 08/09/17 09:00 Constitutional: Yes: No Distress, Calm, Obese (severe) Cardiovascular: Yes: Regular Rate and Rhythm Respiratory: Yes: Regular, CTA Bilaterally Gastrointestinal: Yes: Normal Bowel Sounds, Soft Musculoskeletal: Yes: Other Extremities: Yes: Other (ext fixator) Neurological: Yes: Alert, Oriented Psychiatric: Yes: Alert, Oriented Labs: CBC, BMP 08/09/17 05:48 08/09/17 05:48 INR, PTT INR 1.96 (0.82-1.09) H 08/08/17 05:34 Assessment/Plan Problem List - Problems (1) Acute renal insufficiency Code(s): N28.9 - DISORDER OF KIDNEY AND URETER, UNSPECIFIED (2) Atrial fibrillation Code(s): I48.91 - UNSPECIFIED ATRIAL FIBRILLATION Qualifiers: Atrial fibrillation type: chronic Qualified Code(s): I48.2 - Chronic atrial fibrillation (3) BPH (benign prostatic hyperplasia) Code(s): N40.0 - BENIGN PROSTATIC HYPERPLASIA WITHOUT LOWER URINRY TRACT SYMP (4) CHF (congestive heart failure) Code(s): I50.9 - HEART FAILURE, UNSPECIFIED Qualifiers: Heart failure type: unspecified Heart failure chronicity: acute on chronic Qualified Code(s): I50.9 - Heart failure, unspecified (5) Acute renal failure (ARF) Code(s): N17.9 - ACUTE KIDNEY FAILURE, UNSPECIFIED (6) CAD (coronary artery disease) Code(s): I25.10 - ATHSCL HEART DISEASE OF [place] CORONARY ARTERY W/O ANG PCTRS (7) COPD (chronic obstructive pulmonary disease) Code(s): J44.9 - CHRONIC OBSTRUCTIVE PULMONARY DISEASE, UNSPECIFIED (8) Cellulitis of right leg Code(s): L03.115 - CELLULITIS OF RIGHT LOWER LIMB (9) Diabetes Code(s): E11.9 - TYPE 2 DIABETES MELLITUS WITHOUT COMPLICATIONS (10) Dyslipidemia Code(s): E78.5 - HYPERLIPIDEMIA, UNSPECIFIED (11) Obesities, morbid Code(s): E66.01 - MORBID (SEVERE) OBESITY DUE TO EXCESS CALORIES (12) Open left ankle fracture Code(s): S82.892B - OTH FRACTURE OF LEFT LOWER LEG, INIT FOR OPN FX TYPE I/2 Qualifiers: Encounter type: initial encounter (13) Sleep apnea Code(s): G47.30 - SLEEP APNEA, UNSPECIFIED (14) Venous (peripheral) insufficiency Code(s): I87.2 - VENOUS INSUFFICIENCY (CHRONIC) (PERIPHERAL) (15) Venous ulcer Code(s): I87.8 - OTHER SPECIFIED DISORDERS OF VEINS Assessment/Plan 61 y.o. male with PMH of DM, morbid obesity, CAD, CHF, AFIB, CKD, BPH, LLE compound fracture s/p external fixation with hardware in place, RLE cellulitis, LE infected ulcers receiving IV antibiotics in [place] presenting with urinary retention, KRUNAL and generalized rash and elevated Vancomycin levels Hx of RLE cellulitis/LLE infected ulcers - appears to have improved Rash resolving KRUNAL on CKD Urinary retention plan continue to monitor off of abx rest continue current mgmt patient other britton stable has foleys now
[2017-08-09] MEDS: ATORVASTATIN CA 80 MG TABLET (FP) PO SCH (22:02)
[2017-08-09] MEDS: oxyCODONE HCL 5 MG TABLET PO SCH (22:58)
[2017-08-09] MEDS: ACETAMINOPHEN 325 MG TABLET (FP) PO SCH (22:59)
[2017-08-10] MEDS: oxyCODONE HCL 5 MG TABLET PO PRN ×4 (03:49→20:01)
[2017-08-10] MEDS: INSULIN (LEVEMIR) 100 UNITS/ML UNITS SQ SCH ×2 (06:33→21:18)
[2017-08-10] MEDS: DOCUSATE SODIUM 100 MG CAPSULE (FP) PO SCH ×3 (06:33→21:17)
[2017-08-10] MEDS: FUROSEMIDE 40 MG TABLET (FP) PO SCH ×2 (06:34→13:12)
[2017-08-10] MEDS: LEVOTHYROXINE NA 100 MCG TABLET (FP) PO SCH (06:36)
[2017-08-10] MEDS: INSULIN SLIDING SCALE (NOVOLOG) 1 VIAL SQ SCH ×4 (06:36→21:25)
[2017-08-10 07:32] LABS: CHLORIDE 104 mmol/L (98-107); POTASSIUM 4.9 mmol/L (3.5-5.1); SODIUM 140 mmol/L (136-145)
[2017-08-10 07:44] LABS: ANION GAP 9 (8-16); BLOOD UREA NITROGEN 91 mg/dL (7-18); CALCIUM 7.9 mg/dL (8.5-10.1); CO2 27 mmol/L (21-32); CREATININE 2.6 mg/dL (0.7-1.3); GLUCOSE,RANDOM 102 mg/dL (74-106)
[2017-08-10] MEDS: HEPARIN SOD,PORK IN 0.45% NACL 25,000 UNITS/500 ML INFUS.BAG IVPB SCH ×2 (08:51→17:39)
--- NOTE | 2017-08-10 08:51 | PN ---
Progress Note, Physician Chief Complaint: no cp or sob - Current Medication List Current Medications: Active Medications Acetaminophen (Tylenol -) 650 mg PO HS [facility] Last Admin: 08/09/17 22:59 Dose: 650 mg Albuterol/Ipratropium (Duoneb -) 1 amp NEB Q6H PRN PRN Reason: SHORTNESS OF BREATH Last Admin: 08/09/17 23:08 Dose: 1 amp Atenolol (Tenormin -) 100 mg PO BID [facility] Last Admin: 08/09/17 22:03 Dose: 100 mg Atorvastatin Calcium (Lipitor -) 80 mg PO HS [facility] Last Admin: 08/09/17 22:02 Dose: 80 mg Bisacodyl (Dulcolax -) 10 mg PO DAILY [facility] Last Admin: 08/09/17 09:45 Dose: 10 mg Collagenase (Santyl -) 1 applic TP DAILY [facility] Last Admin: 08/09/17 09:46 Dose: 1 applic Docusate Sodium (Colace -) 100 mg PO TID [facility] Last Admin: 08/10/17 06:33 Dose: 100 mg Furosemide (Lasix -) 80 mg PO BIDLASIX [facility] Last Admin: 08/10/17 06:34 Dose: 80 mg Heparin Sodium (Porcine) (Heparin -) 5,000 unit IVPUSH PRN PRN PRN Reason: HEPARIN PROTOCOL Heparin Sodium (Porcine) (Heparin -) 1,000 unit IVPUSH PRN PRN PRN Reason: HEPARIN PROTOCOL HEPARIN SOD,PORK IN 0.45% NACL (Heparin-1/2ns 25,000 Units/500) 25,000 units in 500 mls @ 20 mls/hr IVPB TITR NEIL; 1,000 UNITS/HR PRN Reason: Protocol Insulin Aspart (Novolog Vial Sliding Scale -) 1 vial SQ ACHS [facility] PRN Reason: Protocol Last Admin: 08/10/17 06:36 Dose: Not Given Insulin Detemir (Levemir Vial) 40 units SQ BID@0700,2200 [facility] Last Admin: 08/10/17 06:33 Dose: 40 units Levothyroxine Sodium (Synthroid -) 100 mcg PO DAILY@0700 [facility] Last Admin: 08/10/17 06:36 Dose: 100 mcg Metronidazole (Metrogel 0.75% Gel -) 1 applic TP BID [facility] Last Admin: 08/09/17 22:02 Dose: 1 applic Mupirocin (Bactroban 2% Ointment -) 1 applic TP DAILY [facility] Last Admin: 08/09/17 09:44 Dose: 1 applic Non-Formulary Medication (Linaclotide [Linzess]) 290 mcg PO DAILY [facility] Nystatin (Mycostatin Cream -) 1 applic TP BID [facility] Last Admin: 08/09/17 22:02 Dose: 1 applic Oxycodone HCl (Roxicodone -) 10 mg PO HS [facility] Last Admin: 08/09/17 22:58 Dose: 10 mg Oxycodone HCl (Roxicodone -) 10 mg PO Q4H PRN PRN Reason: PAIN LEVEL 6-10 Last Admin: 08/10/17 03:49 Dose: 10 mg Tamsulosin HCl (Flomax -) 0.4 mg PO DAILY@0830 [facility] Last Admin: 08/09/17 09:44 Dose: 0.4 mg - Objective Vital Signs: Vital Signs Temperature 98.3 F 08/10/17 06:00 Pulse Rate 88 08/10/17 06:00 Respiratory Rate 20 08/10/17 06:00 Blood Pressure 91/62 08/10/17 06:00 O2 Sat by Pulse Oximetry (%) 95 08/09/17 21:00 Constitutional: Yes: Calm Cardiovascular: Yes: Pulse Irregular Respiratory: Yes: CTA Bilaterally Gastrointestinal: Yes: Soft Edema: Yes Edema: LLE: 1+, RLE: 1+ Neurological: Yes: Alert, Oriented ...Motor Strength: WNL Labs: CBC, BMP 08/09/17 05:48 08/10/17 06:35 INR, PTT INR 1.96 (0.82-1.09) H 08/08/17 05:34 - ....Imaging EKG: Image Reviewed Assessment/Plan IMP: Acute on chronic RF, hyperK+ Permanent AF CAD s/p PCI ASHLEY Chronic diastolic CHF REC: 1. Hold NOAC, use heparin gtts in setting ARF 2. HyperK improved, cont tele until K+ stable 3. Further Rx ARF as per PMD and Urology
[2017-08-10] MEDS: TAMSULOSIN HCL 0.4 MG CAP.ER.24H (FP) PO SCH (09:32)
[2017-08-10] MEDS: BISACODYL 5 MG TABLET.DR (FP) PO SCH (09:33)
[2017-08-10] MEDS: MUPIROCIN 2% TOPICAL OINTMENT 22 GM TUBE TP SCH (09:33)
[2017-08-10] MEDS: NYSTATIN 100,000 UNIT/GM TOPICAL CREAM 15 GM TUBE TP SCH (09:34)
[2017-08-10] MEDS: metroNIDAZOLE 0.75% TOPICAL GEL 45 GM TUBE TP SCH ×2 (09:34→21:25)
[2017-08-10] MEDS: ATENOLOL 50 MG TABLET (FP) PO SCH ×2 (09:35→21:27)
[2017-08-10] MEDS: COLLAGENASE CLOSTRIDIUM HIST. 30 GRAMS TUBE TP SCH (09:35)
--- NOTE | 2017-08-10 12:53 | PN ---
Progress Note, Physician Chief Complaint: C/o constipation, difficulty moving in bed History of Present Illness: Recent hospitalization for acute cellulitis RLE after fall [employer]. The patient sustained open left ankle fracture while at [facility] and had subsequent external fixation by Dr. Thayer Morbid obesity. ASHLEY. Bilateral PE. Pulmonary HTN-CTEPH , ASHLEY AND CLASS 2 PAH. CHF-mostly diastolic. ASHD. STEMI in 2016 with MICHAEL x2 placed at [place]. Chronic A.Fib-on a/c-Xarelto/ASA now. Gout. Gouty arthritis CKD 3 DM type 2. Chronic DVT Right thigh, Stasis ulcers, edema. Chronic wound right Ankle/dobbs-RX at [facility]-groing multiple organisms. - Current Medication List Current Medications: Active Medications Acetaminophen (Tylenol -) 650 mg PO HS [facility] Last Admin: 08/09/17 22:59 Dose: 650 mg Albuterol/Ipratropium (Duoneb -) 1 amp NEB Q6H PRN PRN Reason: SHORTNESS OF BREATH Last Admin: 08/09/17 23:08 Dose: 1 amp Atenolol (Tenormin -) 100 mg PO BID [facility] Last Admin: 08/10/17 09:35 Dose: Not Given Atorvastatin Calcium (Lipitor -) 80 mg PO HS [facility] Last Admin: 08/09/17 22:02 Dose: 80 mg Bisacodyl (Dulcolax -) 10 mg PO DAILY [facility] Last Admin: 08/10/17 09:33 Dose: 10 mg Collagenase (Santyl -) 1 applic TP DAILY [facility] Last Admin: 08/10/17 09:35 Dose: 1 applic Docusate Sodium (Colace -) 100 mg PO TID [facility] Last Admin: 08/10/17 06:33 Dose: 100 mg Furosemide (Lasix -) 80 mg PO BIDLASIX [facility] Last Admin: 08/10/17 06:34 Dose: 80 mg Heparin Sodium (Porcine) (Heparin -) 5,000 unit IVPUSH PRN PRN PRN Reason: HEPARIN PROTOCOL Heparin Sodium (Porcine) (Heparin -) 1,000 unit IVPUSH PRN PRN PRN Reason: HEPARIN PROTOCOL HEPARIN SOD,PORK IN 0.45% NACL (Heparin-1/2ns 25,000 Units/500) 25,000 units in 500 mls @ 20 mls/hr IVPB TITR NEIL; 1,000 UNITS/HR PRN Reason: Protocol Last Admin: 08/10/17 08:51 Dose: 1,000 units/hr, 20 mls/hr Insulin Aspart (Novolog Vial Sliding Scale -) 1 vial SQ ACHS [facility] PRN Reason: Protocol Last Admin: 08/10/17 12:02 Dose: Not Given Insulin Detemir (Levemir Vial) 40 units SQ BID@0700,2200 [facility] Last Admin: 08/10/17 06:33 Dose: 40 units Levothyroxine Sodium (Synthroid -) 100 mcg PO DAILY@0700 [facility] Last Admin: 08/10/17 06:36 Dose: 100 mcg Metronidazole (Metrogel 0.75% Gel -) 1 applic TP BID [facility] Last Admin: 08/10/17 09:34 Dose: 1 applic Mupirocin (Bactroban 2% Ointment -) 1 applic TP DAILY [facility] Last Admin: 08/10/17 09:33 Dose: 1 applic Non-Formulary Medication (Linaclotide [Linzess]) 290 mcg PO DAILY [facility] Nystatin (Nystop Powder -) 1 applic TP DAILY [facility] Oxycodone HCl (Roxicodone -) 10 mg PO HS [facility] Last Admin: 08/09/17 22:58 Dose: 10 mg Oxycodone HCl (Roxicodone -) 10 mg PO Q4H PRN PRN Reason: PAIN LEVEL 6-10 Last Admin: 08/10/17 10:00 Dose: 10 mg Sodium Polystyrene Sulfonate (Kayexalate -) 30 gm PO ONCE ONE Stop: 08/10/17 12:44 Tamsulosin HCl (Flomax -) 0.4 mg PO DAILY@0830 [facility] Last Admin: 08/10/17 09:32 Dose: 0.4 mg - Objective Vital Signs: Vital Signs Temperature 98 F 08/10/17 10:00 Pulse Rate 82 08/10/17 10:00 Respiratory Rate 20 08/10/17 10:00 Blood Pressure 98/65 08/10/17 10:00 O2 Sat by Pulse Oximetry (%) 97 08/10/17 09:00 Constitutional: Yes: Anxious, Obese Eyes: Yes: Conjunctiva Clear, EOM Intact HENT: Yes: Atraumatic, Normocephalic. No: Drooling Neck: Yes: Supple, Trachea Midline Cardiovascular: Yes: Pulse Irregular, S1, S2. No: Bradycardia, Tachycardia Respiratory: Yes: Regular, CTA Bilaterally Gastrointestinal: Yes: Normal Bowel Sounds, Soft, Abdomen, Obese. No: Distention ...Rectal Exam: Yes: Deferred Genitourinary: Yes: Boyle Present. No: Anuria Breast(s): Yes: WNL Musculoskeletal: No: Joint Stiffness, Joint Swelling Extremities: Yes: Other (left ankle external fixation. right ankle wound clean) . No: Calf Tenderness, Cold Edema: Yes Edema: RUE: Trace, LLE: Trace Peripheral Pulses WNL: No Neurological: Yes: Alert, Oriented. No: Aphasia, Seizure ...Motor Strength: WNL Psychiatric: Yes: Alert, Oriented, Agitated. No: Suicidal Ideation Labs: CBC, BMP 08/09/17 05:48 08/10/17 06:35 INR, PTT INR 1.96 (0.82-1.09) H 08/08/17 05:34 Problem List - Problems (1) Acute renal insufficiency Assessment/Plan: Hyperkalemia-. Follow BMP Keyexalate PO. Code(s): N28.9 - DISORDER OF KIDNEY AND URETER, UNSPECIFIED (2) Atrial fibrillation Assessment/Plan: D/C Xarelto due to eGFR 20 Will start Heparin IV 08/10/17 Code(s): I48.91 - UNSPECIFIED ATRIAL FIBRILLATION Qualifiers: Atrial fibrillation type: chronic Qualified Code(s): I48.2 - Chronic atrial fibrillation (3) BPH (benign prostatic hyperplasia) Assessment/Plan: Continue Boyle, Flomax as per Dr Ivy Code(s): N40.0 - BENIGN PROSTATIC HYPERPLASIA WITHOUT LOWER URINRY TRACT SYMP (4) CHF (congestive heart failure) Assessment/Plan: IV Lasix , Follow edema, UA output Code(s): I50.9 - HEART FAILURE, UNSPECIFIED Qualifiers: Heart failure type: unspecified Heart failure chronicity: acute on chronic Qualified Code(s): I50.9 - Heart failure, unspecified (5) Accident due to mechanical fall without injury Assessment/Plan: Dr Thayer F/u PT Code(s): W19.XXXA - UNSPECIFIED FALL, INITIAL ENCOUNTER Qualifiers: Encounter type: subsequent encounter Qualified Code(s): W19.XXXD - Unspecified fall, subsequent encounter
--- NOTE | 2017-08-10 13:01 | PN ---
Progress Note, Physician History of Present Illness: stable no new issues - Current Medication List Current Medications: Active Medications Acetaminophen (Tylenol -) 650 mg PO HS [facility] Last Admin: 08/09/17 22:59 Dose: 650 mg Albuterol/Ipratropium (Duoneb -) 1 amp NEB Q6H PRN PRN Reason: SHORTNESS OF BREATH Last Admin: 08/09/17 23:08 Dose: 1 amp Atenolol (Tenormin -) 100 mg PO BID [facility] Last Admin: 08/10/17 09:35 Dose: Not Given Atorvastatin Calcium (Lipitor -) 80 mg PO HS [facility] Last Admin: 08/09/17 22:02 Dose: 80 mg Bisacodyl (Dulcolax -) 10 mg PO DAILY [facility] Last Admin: 08/10/17 09:33 Dose: 10 mg Collagenase (Santyl -) 1 applic TP DAILY [facility] Last Admin: 08/10/17 09:35 Dose: 1 applic Docusate Sodium (Colace -) 100 mg PO TID [facility] Last Admin: 08/10/17 06:33 Dose: 100 mg Furosemide (Lasix -) 80 mg PO BIDLASIX [facility] Last Admin: 08/10/17 06:34 Dose: 80 mg Heparin Sodium (Porcine) (Heparin -) 5,000 unit IVPUSH PRN PRN PRN Reason: HEPARIN PROTOCOL Heparin Sodium (Porcine) (Heparin -) 1,000 unit IVPUSH PRN PRN PRN Reason: HEPARIN PROTOCOL HEPARIN SOD,PORK IN 0.45% NACL (Heparin-1/2ns 25,000 Units/500) 25,000 units in 500 mls @ 20 mls/hr IVPB TITR NEIL; 1,000 UNITS/HR PRN Reason: Protocol Last Admin: 08/10/17 08:51 Dose: 1,000 units/hr, 20 mls/hr Insulin Aspart (Novolog Vial Sliding Scale -) 1 vial SQ ACHS [facility] PRN Reason: Protocol Last Admin: 08/10/17 12:02 Dose: Not Given Insulin Detemir (Levemir Vial) 40 units SQ BID@0700,2200 [facility] Last Admin: 08/10/17 06:33 Dose: 40 units Levothyroxine Sodium (Synthroid -) 100 mcg PO DAILY@0700 [facility] Last Admin: 08/10/17 06:36 Dose: 100 mcg Metronidazole (Metrogel 0.75% Gel -) 1 applic TP BID [facility] Last Admin: 08/10/17 09:34 Dose: 1 applic Mupirocin (Bactroban 2% Ointment -) 1 applic TP DAILY [facility] Last Admin: 08/10/17 09:33 Dose: 1 applic Non-Formulary Medication (Linaclotide [Linzess]) 290 mcg PO DAILY [facility] Nystatin (Nystop Powder -) 1 applic TP DAILY [facility] Oxycodone HCl (Roxicodone -) 10 mg PO HS [facility] Last Admin: 08/09/17 22:58 Dose: 10 mg Oxycodone HCl (Roxicodone -) 10 mg PO Q4H PRN PRN Reason: PAIN LEVEL 6-10 Last Admin: 08/10/17 10:00 Dose: 10 mg Sodium Polystyrene Sulfonate (Kayexalate -) 30 gm PO ONCE ONE Stop: 08/10/17 12:44 Tamsulosin HCl (Flomax -) 0.4 mg PO DAILY@0830 [facility] Last Admin: 08/10/17 09:32 Dose: 0.4 mg - Objective Vital Signs: Vital Signs Temperature 98 F 08/10/17 10:00 Pulse Rate 82 08/10/17 10:00 Respiratory Rate 20 08/10/17 10:00 Blood Pressure 98/65 08/10/17 10:00 O2 Sat by Pulse Oximetry (%) 97 08/10/17 09:00 Constitutional: Yes: No Distress, Calm, Obese Cardiovascular: Yes: Regular Rate and Rhythm Respiratory: Yes: On BiPap, Poor Air Entry Gastrointestinal: Yes: Normal Bowel Sounds, Soft Genitourinary: Yes: Boyle Present Musculoskeletal: Yes: Other Extremities: Yes: Other (ext fixator) Wound/Incision: Yes: Dressing Dry and Intact Neurological: Yes: Alert, Oriented Psychiatric: Yes: Alert, Oriented Labs: CBC, BMP 08/09/17 05:48 08/10/17 06:35 INR, PTT INR 1.96 (0.82-1.09) H 08/08/17 05:34 Assessment/Plan Problem List - Problems (1) Acute renal insufficiency Code(s): N28.9 - DISORDER OF KIDNEY AND URETER, UNSPECIFIED (2) Atrial fibrillation Code(s): I48.91 - UNSPECIFIED ATRIAL FIBRILLATION Qualifiers: Atrial fibrillation type: chronic Qualified Code(s): I48.2 - Chronic atrial fibrillation (3) BPH (benign prostatic hyperplasia) Code(s): N40.0 - BENIGN PROSTATIC HYPERPLASIA WITHOUT LOWER URINRY TRACT SYMP (4) CHF (congestive heart failure) Code(s): I50.9 - HEART FAILURE, UNSPECIFIED Qualifiers: Heart failure type: unspecified Heart failure chronicity: acute on chronic Qualified Code(s): I50.9 - Heart failure, unspecified (5) Acute renal failure (ARF) Code(s): N17.9 - ACUTE KIDNEY FAILURE, UNSPECIFIED (6) CAD (coronary artery disease) Code(s): I25.10 - ATHSCL HEART DISEASE OF [place] CORONARY ARTERY W/O ANG PCTRS (7) COPD (chronic obstructive pulmonary disease) Code(s): J44.9 - CHRONIC OBSTRUCTIVE PULMONARY DISEASE, UNSPECIFIED (8) Cellulitis of right leg Code(s): L03.115 - CELLULITIS OF RIGHT LOWER LIMB (9) Diabetes Code(s): E11.9 - TYPE 2 DIABETES MELLITUS WITHOUT COMPLICATIONS (10) Dyslipidemia Code(s): E78.5 - HYPERLIPIDEMIA, UNSPECIFIED (11) Obesities, morbid Code(s): E66.01 - MORBID (SEVERE) OBESITY DUE TO EXCESS CALORIES (12) Open left ankle fracture Code(s): S82.892B - OTH FRACTURE OF LEFT LOWER LEG, INIT FOR OPN FX TYPE I/2 Qualifiers: Encounter type: initial encounter (13) Sleep apnea Code(s): G47.30 - SLEEP APNEA, UNSPECIFIED (14) Venous (peripheral) insufficiency Code(s): I87.2 - VENOUS INSUFFICIENCY (CHRONIC) (PERIPHERAL) (15) Venous ulcer Code(s): I87.8 - OTHER SPECIFIED DISORDERS OF VEINS Assessment/Plan 61 y.o. male with PMH of DM, morbid obesity, CAD, CHF, AFIB, CKD, BPH, LLE compound fracture s/p external fixation with hardware in place, RLE cellulitis, LE infected ulcers receiving IV antibiotics in [place] presenting with urinary retention, KRUNAL and generalized rash and elevated Vancomycin levels Hx of RLE cellulitis/LLE infected ulcers - appears to have improved Rash resolving KRUNAL on CKD Urinary retention plan continue to monitor off of abx rest continue current mgmt patient other britton stable has foleys now
[2017-08-10] MEDS ORDERED: SODIUM POLYSTYRENE SULFONATE 15 GM/60 ML BOTTLE PO ONE (14:15)
--- NOTE | 2017-08-10 14:41 | PN ---
Progress Note, Physician History of Present Illness: Pt seen and examined at bedside. He is awake and alert. He denies shortness of breath. - Current Medication List Current Medications: Active Medications Acetaminophen (Tylenol -) 650 mg PO HS [facility] Last Admin: 08/09/17 22:59 Dose: 650 mg Albuterol/Ipratropium (Duoneb -) 1 amp NEB Q6H PRN PRN Reason: SHORTNESS OF BREATH Last Admin: 08/09/17 23:08 Dose: 1 amp Atenolol (Tenormin -) 100 mg PO BID [facility] Last Admin: 08/10/17 09:35 Dose: Not Given Atorvastatin Calcium (Lipitor -) 80 mg PO HS [facility] Last Admin: 08/09/17 22:02 Dose: 80 mg Bisacodyl (Dulcolax -) 10 mg PO DAILY [facility] Last Admin: 08/10/17 09:33 Dose: 10 mg Collagenase (Santyl -) 1 applic TP DAILY [facility] Last Admin: 08/10/17 09:35 Dose: 1 applic Docusate Sodium (Colace -) 100 mg PO TID [facility] Last Admin: 08/10/17 13:12 Dose: 100 mg Furosemide (Lasix -) 80 mg PO BIDLASIX [facility] Last Admin: 08/10/17 13:12 Dose: 80 mg Heparin Sodium (Porcine) (Heparin -) 5,000 unit IVPUSH PRN PRN PRN Reason: HEPARIN PROTOCOL Heparin Sodium (Porcine) (Heparin -) 1,000 unit IVPUSH PRN PRN PRN Reason: HEPARIN PROTOCOL HEPARIN SOD,PORK IN 0.45% NACL (Heparin-1/2ns 25,000 Units/500) 25,000 units in 500 mls @ 20 mls/hr IVPB TITR NEIL; 1,000 UNITS/HR PRN Reason: Protocol Last Admin: 08/10/17 08:51 Dose: 1,000 units/hr, 20 mls/hr Insulin Aspart (Novolog Vial Sliding Scale -) 1 vial SQ ACHS [facility] PRN Reason: Protocol Last Admin: 08/10/17 12:02 Dose: Not Given Insulin Detemir (Levemir Vial) 40 units SQ BID@0700,2200 [facility] Last Admin: 08/10/17 06:33 Dose: 40 units Lactulose (Cephulac (Oral Use)) 20 gm PO DAILY [facility] Levothyroxine Sodium (Synthroid -) 100 mcg PO DAILY@0700 [facility] Last Admin: 08/10/17 06:36 Dose: 100 mcg Metronidazole (Metrogel 0.75% Gel -) 1 applic TP BID [facility] Last Admin: 08/10/17 09:34 Dose: 1 applic Mupirocin (Bactroban 2% Ointment -) 1 applic TP DAILY [facility] Last Admin: 08/10/17 09:33 Dose: 1 applic Non-Formulary Medication (Linaclotide [Linzess]) 290 mcg PO DAILY [facility] Nystatin (Nystop Powder -) 1 applic TP DAILY [facility] Oxycodone HCl (Roxicodone -) 10 mg PO HS [facility] Last Admin: 08/09/17 22:58 Dose: 10 mg Oxycodone HCl (Roxicodone -) 10 mg PO Q4H PRN PRN Reason: PAIN LEVEL 6-10 Last Admin: 08/10/17 14:06 Dose: 10 mg Tamsulosin HCl (Flomax -) 0.4 mg PO DAILY@0830 [facility] Last Admin: 08/10/17 09:32 Dose: 0.4 mg - Objective Vital Signs: Vital Signs Temperature 98 F 08/10/17 10:00 Pulse Rate 82 08/10/17 10:00 Respiratory Rate 20 08/10/17 10:00 Blood Pressure 98/65 08/10/17 10:00 O2 Sat by Pulse Oximetry (%) 97 08/10/17 09:00 Constitutional: Yes: Calm Eyes: Yes: Conjunctiva Clear HENT: Yes: Atraumatic Cardiovascular: Yes: S1, S2 Respiratory: Yes: CTA Bilaterally Gastrointestinal: Yes: Soft, Abdomen, Obese Genitourinary: Yes: Boyle Present, Scrotal Edema Edema: Yes Edema: LLE: 2+, RLE: 2+ Integumentary: Yes: Venous Stasis Changes Neurological: Yes: Oriented Psychiatric: Yes: Oriented Labs: CBC, BMP 08/09/17 05:48 08/10/17 06:35 INR, PTT INR 1.96 (0.82-1.09) H 08/08/17 05:34 Problem List - Problems (1) Acute renal insufficiency Code(s): N28.9 - DISORDER OF KIDNEY AND URETER, UNSPECIFIED (2) Atrial fibrillation Code(s): I48.91 - UNSPECIFIED ATRIAL FIBRILLATION Qualifiers: Atrial fibrillation type: chronic Qualified Code(s): I48.2 - Chronic atrial fibrillation (3) BPH (benign prostatic hyperplasia) Code(s): N40.0 - BENIGN PROSTATIC HYPERPLASIA WITHOUT LOWER URINRY TRACT SYMP (4) CHF (congestive heart failure) Code(s): I50.9 - HEART FAILURE, UNSPECIFIED Qualifiers: Heart failure type: unspecified Heart failure chronicity: acute on chronic Qualified Code(s): I50.9 - Heart failure, unspecified (5) Acute renal failure (ARF) Code(s): N17.9 - ACUTE KIDNEY FAILURE, UNSPECIFIED (6) CAD (coronary artery disease) Code(s): I25.10 - ATHSCL HEART DISEASE OF [place] CORONARY ARTERY W/O ANG PCTRS (7) CKD (chronic kidney disease) Code(s): N18.9 - CHRONIC KIDNEY DISEASE, UNSPECIFIED (8) Cellulitis Code(s): L03.90 - CELLULITIS, UNSPECIFIED Assessment/Plan Current Medications Generic Name Dose Route Start Last Admin Trade Name Freq PRN Reason Stop Dose Admin Acetaminophen 650 mg 08/07/17 22:00 08/09/17 22:59 Tylenol - PO 650 mg HS NEIL Administration Albuterol/Ipratropium 1 amp 08/07/17 15:15 08/09/17 23:08 Duoneb - NEB 1 amp Q6H PRN Administration SHORTNESS OF BREATH Atenolol 100 mg 08/07/17 13:35 08/10/17 09:35 Tenormin - PO Not Given BID NEIL Atorvastatin Calcium 80 mg 08/07/17 22:00 08/09/17 22:02 Lipitor - PO 80 mg HS NEIL Administration Bisacodyl 10 mg 08/07/17 10:00 08/10/17 09:33 Dulcolax - PO 10 mg DAILY NEIL Administration Collagenase 1 applic 08/07/17 10:00 08/10/17 09:35 Santyl - TP 1 applic DAILY NEIL Administration Docusate Sodium 100 mg 08/07/17 13:45 08/10/17 13:12 Colace - PO 100 mg TID NEIL Administration Furosemide 80 mg 08/07/17 06:00 08/10/17 13:12 Lasix - PO 80 mg BIDLASIX NEIL Administration Heparin Sodium (Porcine) 5,000 unit 08/09/17 08:50 Heparin - IVPUSH PRN PRN HEPARIN PROTOCOL Heparin Sodium (Porcine) 1,000 unit 08/09/17 08:50 Heparin - IVPUSH PRN PRN HEPARIN PROTOCOL HEPARIN SOD,PORK IN 0.45% NACL 25,000 units in 500 mls @ 20 mls/hr 08/10/17 08 :45 08/10/17 08:51 Heparin-1/2ns 25,000 Units/500 IVPB 1,000 units/hr TITR NEIL 20 mls/hr Protocol Administration 1,000 UNITS/HR Insulin Aspart 1 vial 08/07/17 07:00 08/10/17 12:02 Novolog Vial Sliding Scale - SQ Not Given ACHS NEIL Protocol Insulin Detemir 40 units 08/07/17 07:00 08/10/17 06:33 Levemir Vial SQ 40 units BID@0700,2200 NEIL Administration Lactulose 20 gm 08/10/17 14:15 Cephulac (Oral Use) PO DAILY NEIL Levothyroxine Sodium 100 mcg 08/07/17 07:00 08/10/17 06:36 Synthroid - PO 100 mcg DAILY@0700 NEIL Administration Metronidazole 1 applic 08/07/17 10:00 08/10/17 09:34 Metrogel 0.75% Gel - TP 1 applic BID NEIL Administration Mupirocin 1 applic 08/07/17 10:00 08/10/17 09:33 Bactroban 2% Ointment - TP 1 applic DAILY NEIL Administration Non-Formulary Medication 290 mcg 08/07/17 10:00 Linaclotide [Linzess] PO DAILY NEIL Nystatin 1 applic 08/11/17 10:00 Nystop Powder - TP DAILY NEIL Oxycodone HCl 10 mg 08/07/17 22:00 08/09/17 22:58 Roxicodone - PO 10 mg HS NEIL Administration Oxycodone HCl 10 mg 08/07/17 03:52 08/10/17 14:06 Roxicodone - PO 10 mg Q4H PRN Administration PAIN LEVEL 6-10 Tamsulosin HCl 0.4 mg 08/07/17 11:45 08/10/17 09:32 Flomax - PO 0.4 mg DAILY@0830 NEIL Administration Impression 1. CKD 2. KRUNAL 3. volume overload 4. obesity 5. CAD 6. cellulitis 7. s/p fall 8. a-fib 9. DM 10. hypothyroidism 11. HLD 12. CHF 13. s/p leg fracture 14. hyperkalemia 15. constipation Plan - cont with lasix - renal function is improving - bowel regimen to prevent constipation - discussed with pmd - ID follow up - potassium is improved - monitor urine output - renal diet - cont wound care
[2017-08-10] MEDS: LACTULOSE 20 GM/30 ML UDC (FOR ORAL USE ONLY) PO SCH ×2 (15:10→18:17)
[2017-08-10] MEDS: HEPARIN NA (PORCINE) 5,000 UNITS/ML 1ML VIAL IVPUSH PRN (17:38)
[2017-08-10] MEDS: ATORVASTATIN CA 80 MG TABLET (FP) PO SCH (21:25)
[2017-08-10] MEDS: oxyCODONE HCL 5 MG TABLET PO SCH (21:26)
[2017-08-10] MEDS: ACETAMINOPHEN 325 MG TABLET (FP) PO SCH (21:27)
[2017-08-11] MEDS: oxyCODONE HCL 5 MG TABLET PO PRN ×5 (00:52→17:12)
[2017-08-11] MEDS: HEPARIN NA (PORCINE) 5,000 UNITS/ML 1ML VIAL IVPUSH PRN ×3 (01:32→18:01)
[2017-08-11] MEDS: FUROSEMIDE 40 MG TABLET (FP) PO SCH ×2 (05:24→13:11)
[2017-08-11] MEDS: DOCUSATE SODIUM 100 MG CAPSULE (FP) PO SCH ×3 (05:31→22:13)
[2017-08-11] MEDS: INSULIN SLIDING SCALE (NOVOLOG) 1 VIAL SQ SCH ×4 (06:37→22:23)
[2017-08-11] MEDS: LEVOTHYROXINE NA 100 MCG TABLET (FP) PO SCH (06:40)
[2017-08-11] MEDS: ALBUTEROL SO4 2.5/IPRATROPIUM 0.5 INH SOL 3 ML VIAL.NEB. NEB PRN (06:48)
[2017-08-11 06:53] LABS: HEMATOCRIT 27.9 % (35.4-49); HEMOGLOBIN 8.9 GM/dL (11.7-16.9); MCH 30.8 pg (25.7-33.7); MEAN CELL VOLUME 96.2 fl (80-96); MEAN PLT VOLUME 8.3 fl (7.5-11.1); PLATELET COUNT 169 K/MM3 (134-434); RDW 17.9 % (11.9-15.9)
[2017-08-11] MEDS: INSULIN (LEVEMIR) 100 UNITS/ML UNITS SQ SCH ×2 (07:23→22:22)
--- NOTE | 2017-08-11 08:22 | PN ---
Progress Note, Physician Chief Complaint: C/o generalized body pain, both LE burning and pain, both ankles pain History of Present Illness: Recent hospitalization for acute cellulitis RLE after fall [employer]. The patient sustained open left ankle fracture while at [facility] and had subsequent external fixation by Dr. Thayer Morbid obesity. ASHLEY. Bilateral PE. Pulmonary HTN-CTEPH , ASHLEY AND CLASS 2 PAH. CHF-mostly diastolic. ASHD. STEMI in 2016 with MICHAEL x2 placed at [place]. Chronic A.Fib-on a/c-Xarelto/ASA now. Gout. Gouty arthritis CKD 3 DM type 2. Chronic DVT Right thigh, Stasis ulcers, edema. Chronic wound right Ankle/dobbs-RX at [facility]-groing multiple organisms. - Current Medication List Current Medications: Active Medications Acetaminophen (Tylenol -) 650 mg PO HS [facility] Last Admin: 08/10/17 21:27 Dose: Not Given Albuterol/Ipratropium (Duoneb -) 1 amp NEB Q6H PRN PRN Reason: SHORTNESS OF BREATH Last Admin: 08/11/17 06:48 Dose: 1 amp Atenolol (Tenormin -) 100 mg PO BID [facility] Last Admin: 08/10/17 21:27 Dose: Not Given Atorvastatin Calcium (Lipitor -) 80 mg PO HS [facility] Last Admin: 08/10/17 21:25 Dose: Not Given Bisacodyl (Dulcolax -) 10 mg PO DAILY [facility] Last Admin: 08/10/17 09:33 Dose: 10 mg Collagenase (Santyl -) 1 applic TP DAILY [facility] Last Admin: 08/10/17 09:35 Dose: 1 applic Docusate Sodium (Colace -) 100 mg PO TID [facility] Last Admin: 08/11/17 05:31 Dose: Not Given Furosemide (Lasix -) 80 mg PO BIDLASIX [facility] Last Admin: 08/11/17 05:24 Dose: 80 mg Heparin Sodium (Porcine) (Heparin -) 5,000 unit IVPUSH PRN PRN PRN Reason: HEPARIN PROTOCOL Last Admin: 08/11/17 01:32 Dose: 5,000 unit Heparin Sodium (Porcine) (Heparin -) 1,000 unit IVPUSH PRN PRN PRN Reason: HEPARIN PROTOCOL HEPARIN SOD,PORK IN 0.45% NACL (Heparin-1/2ns 25,000 Units/500) 25,000 units in 500 mls @ 20 mls/hr IVPB TITR NEIL; 1,000 UNITS/HR PRN Reason: Protocol Last Titration: 08/11/17 01:31 Dose: 1,300 units/hr, 26 mls/hr Insulin Aspart (Novolog Vial Sliding Scale -) 1 vial SQ ACHS [facility] PRN Reason: Protocol Last Admin: 08/11/17 06:37 Dose: Not Given Insulin Detemir (Levemir Vial) 40 units SQ BID@0700,2200 [facility] Last Admin: 08/11/17 07:23 Dose: Not Given Lactulose (Cephulac (Oral Use)) 20 gm PO DAILY [facility] Last Admin: 08/10/17 18:17 Dose: 20 gm Levothyroxine Sodium (Synthroid -) 100 mcg PO DAILY@0700 [facility] Last Admin: 08/11/17 06:40 Dose: 100 mcg Metronidazole (Metrogel 0.75% Gel -) 1 applic TP BID [facility] Last Admin: 08/10/17 21:25 Dose: 1 applic Mupirocin (Bactroban 2% Ointment -) 1 applic TP DAILY [facility] Last Admin: 08/10/17 09:33 Dose: 1 applic Non-Formulary Medication (Linaclotide [Linzess]) 290 mcg PO DAILY [facility] Nystatin (Nystop Powder -) 1 applic TP DAILY [facility] Oxycodone HCl (Roxicodone -) 10 mg PO HS [facility] Last Admin: 08/10/17 21:26 Dose: Not Given Oxycodone HCl (Roxicodone -) 10 mg PO Q4H PRN PRN Reason: PAIN LEVEL 6-10 Last Admin: 08/11/17 05:22 Dose: 10 mg Tamsulosin HCl (Flomax -) 0.4 mg PO DAILY@0830 [facility] Last Admin: 08/10/17 09:32 Dose: 0.4 mg - Objective Vital Signs: Vital Signs Temperature 98.1 F 08/11/17 06:00 Pulse Rate 80 08/11/17 06:00 Respiratory Rate 20 08/11/17 06:00 Blood Pressure 108/66 08/11/17 06:00 O2 Sat by Pulse Oximetry (%) 98 08/10/17 21:00 Constitutional: Yes: Anxious, Moderate Distress, Obese, Pallor. No: Ashen, Cachectic, Diaphoresis Eyes: Yes: Conjunctiva Clear, EOM Intact HENT: Yes: Atraumatic, Normocephalic. No: Drooling, Epistaxis, Hoarseness, Nasal Congestion, Rhinnorhea Neck: Yes: Supple, Trachea Midline. No: Decreased ROM, Lymphadenopathy, Rigid, Thyromegaly Cardiovascular: Yes: Pulse Irregular, S1, S2. No: Tachycardia, JVD Respiratory: Yes: Regular, CTA Bilaterally, On BiPap. No: Accessory Muscle Use , Rales, Rhonchi, Stridor, Tachypnea, Wheezes Gastrointestinal: Yes: Soft, Abdomen, Obese. No: Palpable Mass, Tenderness, Tenderness, Epigastrium ...Rectal Exam: Yes: Deferred Genitourinary: Yes: Anuria, Boyle Present. No: Hematuria Breast(s): Yes: WNL Musculoskeletal: Yes: Muscle Pain, Muscle Weakness. No: Joint Stiffness, Joint Swelling Extremities: Yes: Other (Left external fixation RLE ankle wound healing). No: Calf Tenderness, Cold, Cyanosis Edema: Yes (Improved) Edema: LLE: 1+, RLE: 1+ Peripheral Pulses WNL: No Neurological: Yes: Alert, Oriented. No: Aphasia ...Motor Strength: WNL Psychiatric: Yes: Alert, Oriented, Agitated (occasionally). No: Suicidal Ideation Labs: CBC, BMP 08/11/17 05:30 08/10/17 06:35 INR, PTT INR 1.96 (0.82-1.09) H 08/08/17 05:34 Problem List - Problems (1) Acute renal insufficiency Assessment/Plan: Potassium improved. Avoid UVALDO and ARB. Follow renal fx. Code(s): N28.9 - DISORDER OF KIDNEY AND URETER, UNSPECIFIED (2) Atrial fibrillation Assessment/Plan: D/C Xarelto due to eGFR 20 Will start Heparin IV 08/10/17 Code(s): I48.91 - UNSPECIFIED ATRIAL FIBRILLATION Qualifiers: Atrial fibrillation type: chronic Qualified Code(s): I48.2 - Chronic atrial fibrillation (3) BPH (benign prostatic hyperplasia) Assessment/Plan: Continue Boyle, Flomax as per Dr Ivy Code(s): N40.0 - BENIGN PROSTATIC HYPERPLASIA WITHOUT LOWER URINRY TRACT SYMP (4) CHF (congestive heart failure) Assessment/Plan: IV Lasix , Follow edema, UA output Code(s): I50.9 - HEART FAILURE, UNSPECIFIED Qualifiers: Heart failure type: unspecified Heart failure chronicity: acute on chronic Qualified Code(s): I50.9 - Heart failure, unspecified (5) Accident due to mechanical fall without injury Assessment/Plan: Dr Thayer F/u PT anle-bone appear to be in good alignment Code(s): W19.XXXA - UNSPECIFIED FALL, INITIAL ENCOUNTER Qualifiers: Encounter type: subsequent encounter Qualified Code(s): W19.XXXD - Unspecified fall, subsequent encounter (6) Severe pain Assessment/Plan: Receiving Oxycodon every 4 hrs Pain management consult-Dr Colby ordered Code(s): R52 - PAIN, UNSPECIFIED
--- NOTE | 2017-08-11 08:42 | PN ---
Progress Note, Physician Chief Complaint: alert, no distress - Current Medication List Current Medications: Active Medications Acetaminophen (Tylenol -) 650 mg PO HS [facility] Last Admin: 08/10/17 21:27 Dose: Not Given Albuterol/Ipratropium (Duoneb -) 1 amp NEB Q6H PRN PRN Reason: SHORTNESS OF BREATH Last Admin: 08/11/17 06:48 Dose: 1 amp Atenolol (Tenormin -) 100 mg PO BID [facility] Last Admin: 08/10/17 21:27 Dose: Not Given Atorvastatin Calcium (Lipitor -) 80 mg PO HS [facility] Last Admin: 08/10/17 21:25 Dose: Not Given Bisacodyl (Dulcolax -) 10 mg PO DAILY [facility] Last Admin: 08/10/17 09:33 Dose: 10 mg Collagenase (Santyl -) 1 applic TP DAILY [facility] Last Admin: 08/10/17 09:35 Dose: 1 applic Docusate Sodium (Colace -) 100 mg PO TID [facility] Last Admin: 08/11/17 05:31 Dose: Not Given Furosemide (Lasix -) 80 mg PO BIDLASIX [facility] Last Admin: 08/11/17 05:24 Dose: 80 mg Heparin Sodium (Porcine) (Heparin -) 5,000 unit IVPUSH PRN PRN PRN Reason: HEPARIN PROTOCOL Last Admin: 08/11/17 01:32 Dose: 5,000 unit Heparin Sodium (Porcine) (Heparin -) 1,000 unit IVPUSH PRN PRN PRN Reason: HEPARIN PROTOCOL HEPARIN SOD,PORK IN 0.45% NACL (Heparin-1/2ns 25,000 Units/500) 25,000 units in 500 mls @ 20 mls/hr IVPB TITR NEIL; 1,000 UNITS/HR PRN Reason: Protocol Last Titration: 08/11/17 01:31 Dose: 1,300 units/hr, 26 mls/hr Insulin Aspart (Novolog Vial Sliding Scale -) 1 vial SQ ACHS [facility] PRN Reason: Protocol Last Admin: 08/11/17 06:37 Dose: Not Given Insulin Detemir (Levemir Vial) 40 units SQ BID@0700,2200 [facility] Last Admin: 08/11/17 07:23 Dose: Not Given Lactulose (Cephulac (Oral Use)) 20 gm PO DAILY [facility] Last Admin: 08/10/17 18:17 Dose: 20 gm Levothyroxine Sodium (Synthroid -) 100 mcg PO DAILY@0700 [facility] Last Admin: 08/11/17 06:40 Dose: 100 mcg Metronidazole (Metrogel 0.75% Gel -) 1 applic TP BID [facility] Last Admin: 08/10/17 21:25 Dose: 1 applic Mupirocin (Bactroban 2% Ointment -) 1 applic TP DAILY [facility] Last Admin: 08/10/17 09:33 Dose: 1 applic Non-Formulary Medication (Linaclotide [Linzess]) 290 mcg PO DAILY [facility] Nystatin (Nystop Powder -) 1 applic TP DAILY [facility] Oxycodone HCl (Roxicodone -) 10 mg PO HS [facility] Last Admin: 08/10/17 21:26 Dose: Not Given Oxycodone HCl (Roxicodone -) 10 mg PO Q4H PRN PRN Reason: PAIN LEVEL 6-10 Last Admin: 08/11/17 05:22 Dose: 10 mg Tamsulosin HCl (Flomax -) 0.4 mg PO DAILY@0830 [facility] Last Admin: 08/10/17 09:32 Dose: 0.4 mg - Objective Vital Signs: Vital Signs Temperature 98.1 F 08/11/17 06:00 Pulse Rate 80 08/11/17 06:00 Respiratory Rate 20 08/11/17 06:00 Blood Pressure 108/66 08/11/17 06:00 O2 Sat by Pulse Oximetry (%) 98 08/10/17 21:00 Constitutional: Yes: No Distress Cardiovascular: Yes: Pulse Irregular Respiratory: Yes: CTA Bilaterally Gastrointestinal: Yes: Soft, Abdomen, Obese Edema: Yes Edema: LLE: 1+, RLE: 1+ Neurological: Yes: Alert, Oriented ...Motor Strength: WNL Labs: CBC, BMP 08/11/17 05:30 08/10/17 06:35 INR, PTT INR 1.96 (0.82-1.09) H 08/08/17 05:34 - ....Imaging EKG: Image Reviewed Assessment/Plan IMP: Acute on chronic RF, hyperK+ Permanent AF CAD s/p PCI ASHLEY Chronic diastolic CHF REC: 1. Hold NOAC, use heparin gtts in setting ARF. Resume ASA 81mg, h/o CAD w/ PCI 2. HyperK improved, cont tele until K+ stable 3. Further Rx ARF as per PMD and Urology
[2017-08-11] MEDS ORDERED: PT OWN MED DRAWER 7, Y5N ONE ×2 (08:58→13:07)
[2017-08-11] MEDS: ASPIRIN 81 MG CHEWABLE TABLETS PO SCH (09:09)
[2017-08-11] MEDS: LACTULOSE 20 GM/30 ML UDC (FOR ORAL USE ONLY) PO SCH (09:10)
[2017-08-11] MEDS: BISACODYL 5 MG TABLET.DR (FP) PO SCH (09:11)
[2017-08-11] MEDS: ATENOLOL 50 MG TABLET (FP) PO SCH ×2 (09:11→22:14)
[2017-08-11] MEDS: TAMSULOSIN HCL 0.4 MG CAP.ER.24H (FP) PO SCH (09:22)
[2017-08-11] MEDS: NYSTATIN POWDER 100,000 UNITS/GM - 15 GM TOPICAL POWDER TP SCH (09:23)
[2017-08-11] MEDS: MUPIROCIN 2% TOPICAL OINTMENT 22 GM TUBE TP SCH (09:23)
[2017-08-11] MEDS: COLLAGENASE CLOSTRIDIUM HIST. 30 GRAMS TUBE TP SCH (09:23)
[2017-08-11] MEDS: HEPARIN SOD,PORK IN 0.45% NACL 25,000 UNITS/500 ML INFUS.BAG IVPB SCH (09:30)
[2017-08-11] MEDS: metroNIDAZOLE 0.75% TOPICAL GEL 45 GM TUBE TP SCH ×2 (11:41→22:24)
--- NOTE | 2017-08-11 13:20 | PN ---
Progress Note, Physician History of Present Illness: Pt seen and examined at bedside. He denies shortness of breath. He is actually in better spirits today. - Current Medication List Current Medications: Active Medications Acetaminophen (Tylenol -) 650 mg PO HS [facility] Last Admin: 08/10/17 21:27 Dose: Not Given Albuterol/Ipratropium (Duoneb -) 1 amp NEB Q6H PRN PRN Reason: SHORTNESS OF BREATH Last Admin: 08/11/17 06:48 Dose: 1 amp Aspirin (Asa -) 81 mg PO DAILY [facility] Last Admin: 08/11/17 09:09 Dose: 81 mg Atenolol (Tenormin -) 100 mg PO BID [facility] Last Admin: 08/11/17 09:11 Dose: 100 mg Atorvastatin Calcium (Lipitor -) 80 mg PO HS [facility] Last Admin: 08/10/17 21:25 Dose: Not Given Bisacodyl (Dulcolax -) 10 mg PO DAILY [facility] Last Admin: 08/11/17 09:11 Dose: Not Given Collagenase (Santyl -) 1 applic TP DAILY [facility] Last Admin: 08/11/17 09:23 Dose: 1 applic Docusate Sodium (Colace -) 100 mg PO TID [facility] Last Admin: 08/11/17 13:12 Dose: 100 mg Furosemide (Lasix -) 80 mg PO BIDLASIX [facility] Last Admin: 08/11/17 13:11 Dose: 80 mg Heparin Sodium (Porcine) (Heparin -) 5,000 unit IVPUSH PRN PRN PRN Reason: HEPARIN PROTOCOL Last Admin: 08/11/17 09:24 Dose: 5,000 unit Heparin Sodium (Porcine) (Heparin -) 1,000 unit IVPUSH PRN PRN PRN Reason: HEPARIN PROTOCOL HEPARIN SOD,PORK IN 0.45% NACL (Heparin-1/2ns 25,000 Units/500) 25,000 units in 500 mls @ 20 mls/hr IVPB TITR NEIL; 1,000 UNITS/HR PRN Reason: Protocol Last Admin: 08/11/17 09:30 Dose: Not Given Insulin Aspart (Novolog Vial Sliding Scale -) 1 vial SQ ACHS NEIL PRN Reason: Protocol Last Admin: 08/11/17 11:47 Dose: Not Given Insulin Detemir (Levemir Vial) 40 units SQ BID@0700,2200 [facility] Last Admin: 08/11/17 07:23 Dose: Not Given Lactulose (Cephulac (Oral Use)) 20 gm PO DAILY [facility] Last Admin: 08/11/17 09:10 Dose: Not Given Levothyroxine Sodium (Synthroid -) 100 mcg PO DAILY@0700 [facility] Last Admin: 08/11/17 06:40 Dose: 100 mcg Metronidazole (Metrogel 0.75% Gel -) 1 applic TP BID [facility] Last Admin: 08/11/17 11:41 Dose: 1 applic Mupirocin (Bactroban 2% Ointment -) 1 applic TP DAILY [facility] Last Admin: 08/11/17 09:23 Dose: 1 applic Non-Formulary Medication (Linaclotide [Linzess]) 290 mcg PO DAILY [facility] Nystatin (Nystop Powder -) 1 applic TP DAILY [facility] Last Admin: 08/11/17 09:23 Dose: 1 applic Oxycodone HCl (Roxicodone -) 10 mg PO HS [facility] Last Admin: 08/10/17 21:26 Dose: Not Given Oxycodone HCl (Roxicodone -) 10 mg PO Q4H PRN PRN Reason: PAIN LEVEL 6-10 Last Admin: 08/11/17 13:11 Dose: 10 mg Tamsulosin HCl (Flomax -) 0.4 mg PO DAILY@0830 [facility] Last Admin: 08/11/17 09:22 Dose: 0.4 mg - Objective Vital Signs: Vital Signs Temperature 98.4 F 08/11/17 10:00 Pulse Rate 88 08/11/17 10:00 Respiratory Rate 21 08/11/17 10:00 Blood Pressure 101/63 08/11/17 10:00 O2 Sat by Pulse Oximetry (%) 98 08/11/17 09:00 Constitutional: Yes: Calm Eyes: Yes: Conjunctiva Clear HENT: Yes: Atraumatic Neck: Yes: Supple Cardiovascular: Yes: S1, S2 Respiratory: Yes: CTA Bilaterally Gastrointestinal: Yes: Soft, Abdomen, Obese Musculoskeletal: Yes: Other (left leg external fixation) Edema: Yes Edema: LLE: 2+, RLE: 2+ Integumentary: Yes: Venous Stasis Changes Neurological: Yes: Oriented Psychiatric: Yes: Oriented Labs: CBC, BMP 08/11/17 05:30 08/10/17 06:35 INR, PTT INR 1.96 (0.82-1.09) H 08/08/17 05:34 Problem List - Problems (1) Acute renal insufficiency Code(s): N28.9 - DISORDER OF KIDNEY AND URETER, UNSPECIFIED (2) Atrial fibrillation Code(s): I48.91 - UNSPECIFIED ATRIAL FIBRILLATION Qualifiers: Atrial fibrillation type: chronic Qualified Code(s): I48.2 - Chronic atrial fibrillation (3) BPH (benign prostatic hyperplasia) Code(s): N40.0 - BENIGN PROSTATIC HYPERPLASIA WITHOUT LOWER URINRY TRACT SYMP (4) CHF (congestive heart failure) Code(s): I50.9 - HEART FAILURE, UNSPECIFIED Qualifiers: Heart failure type: unspecified Heart failure chronicity: acute on chronic Qualified Code(s): I50.9 - Heart failure, unspecified (5) Acute renal failure (ARF) Code(s): N17.9 - ACUTE KIDNEY FAILURE, UNSPECIFIED (6) CAD (coronary artery disease) Code(s): I25.10 - ATHSCL HEART DISEASE OF [place] CORONARY ARTERY W/O ANG PCTRS (7) CKD (chronic kidney disease) Code(s): N18.9 - CHRONIC KIDNEY DISEASE, UNSPECIFIED (8) Cellulitis Code(s): L03.90 - CELLULITIS, UNSPECIFIED Assessment/Plan Current Medications Generic Name Dose Route Start Last Admin Trade Name Freq PRN Reason Stop Dose Admin Acetaminophen 650 mg 08/07/17 22:00 08/10/17 21:27 Tylenol - PO Not Given HS NEIL Albuterol/Ipratropium 1 amp 08/07/17 15:15 08/11/17 06:48 Duoneb - NEB 1 amp Q6H PRN Administration SHORTNESS OF BREATH Aspirin 81 mg 08/11/17 10:00 08/11/17 09:09 Asa - PO 81 mg DAILY NEIL Administration Atenolol 100 mg 08/07/17 13:35 08/11/17 09:11 Tenormin - PO 100 mg BID NEIL Administration Atorvastatin Calcium 80 mg 08/07/17 22:00 08/10/17 21:25 Lipitor - PO Not Given HS NEIL Bisacodyl 10 mg 08/07/17 10:00 08/11/17 09:11 Dulcolax - PO Not Given DAILY NEIL Collagenase 1 applic 08/07/17 10:00 08/11/17 09:23 Santyl - TP 1 applic DAILY NEIL Administration Docusate Sodium 100 mg 08/07/17 13:45 08/11/17 13:12 Colace - PO 100 mg TID NEIL Administration Furosemide 80 mg 08/07/17 06:00 08/11/17 13:11 Lasix - PO 80 mg BIDLASIX NEIL Administration Heparin Sodium (Porcine) 5,000 unit 08/09/17 08:50 08/11/17 09:24 Heparin - IVPUSH 5,000 unit PRN PRN Administration HEPARIN PROTOCOL Heparin Sodium (Porcine) 1,000 unit 08/09/17 08:50 Heparin - IVPUSH PRN PRN HEPARIN PROTOCOL HEPARIN SOD,PORK IN 0.45% NACL 25,000 units in 500 mls @ 20 mls/hr 08/10/17 08 :45 08/11/17 09:30 Heparin-1/2ns 25,000 Units/500 IVPB Not Given TITR [facility] Protocol 1,000 UNITS/HR Insulin Aspart 1 vial 08/07/17 07:00 08/11/17 11:47 Novolog Vial Sliding Scale - SQ Not Given ACHS [facility] Protocol Insulin Detemir 40 units 08/07/17 07:00 08/11/17 07:23 Levemir Vial SQ Not Given BID@0700,2200 [facility] Lactulose 20 gm 08/10/17 14:15 08/11/17 09:10 Cephulac (Oral Use) PO Not Given DAILY NEIL Levothyroxine Sodium 100 mcg 08/07/17 07:00 08/11/17 06:40 Synthroid - PO 100 mcg DAILY@0700 NEIL Administration Metronidazole 1 applic 08/07/17 10:00 08/11/17 11:41 Metrogel 0.75% Gel - TP 1 applic BID NEIL Administration Mupirocin 1 applic 08/07/17 10:00 08/11/17 09:23 Bactroban 2% Ointment - TP 1 applic DAILY NEIL Administration Non-Formulary Medication 290 mcg 08/07/17 10:00 Linaclotide [Linzess] PO DAILY NEIL Nystatin 1 applic 08/11/17 10:00 08/11/17 09:23 Nystop Powder - TP 1 applic DAILY NEIL Administration Oxycodone HCl 10 mg 08/07/17 22:00 08/10/17 21:26 Roxicodone - PO Not Given HS NEIL Oxycodone HCl 10 mg 08/07/17 03:52 08/11/17 13:11 Roxicodone - PO 10 mg Q4H PRN Administration PAIN LEVEL 6-10 Tamsulosin HCl 0.4 mg 08/07/17 11:45 08/11/17 09:22 Flomax - PO 0.4 mg DAILY@0830 NEIL Administration Impression 1. CKD 2. KRUNAL 3. volume overload 4. morbid obesity 5. CAD 6. cellulitis 7. s/p fall 8. a-fib 9. DM 10. hypothyroidism 11. HLD 12. CHF 13. s/p leg fracture 14. hyperkalemia 15. constipation Plan - monitor renal function - cont diuretics - cont wound care - potassium is stable - would hold off jasmyne or arb for nowt - renal diet
--- NOTE | 2017-08-11 14:41 | PN ---
Progress Note, Physician History of Present Illness: stable no complaints doing well legs look good - Current Medication List Current Medications: Active Medications Acetaminophen (Tylenol -) 650 mg PO HS [facility] Last Admin: 08/10/17 21:27 Dose: Not Given Albuterol/Ipratropium (Duoneb -) 1 amp NEB Q6H PRN PRN Reason: SHORTNESS OF BREATH Last Admin: 08/11/17 06:48 Dose: 1 amp Aspirin (Asa -) 81 mg PO DAILY [facility] Last Admin: 08/11/17 09:09 Dose: 81 mg Atenolol (Tenormin -) 100 mg PO BID [facility] Last Admin: 08/11/17 09:11 Dose: 100 mg Atorvastatin Calcium (Lipitor -) 80 mg PO HS [facility] Last Admin: 08/10/17 21:25 Dose: Not Given Bisacodyl (Dulcolax -) 10 mg PO DAILY [facility] Last Admin: 08/11/17 09:11 Dose: Not Given Collagenase (Santyl -) 1 applic TP DAILY [facility] Last Admin: 08/11/17 09:23 Dose: 1 applic Docusate Sodium (Colace -) 100 mg PO TID [facility] Last Admin: 08/11/17 13:12 Dose: 100 mg Furosemide (Lasix -) 80 mg PO BIDLASIX [facility] Last Admin: 08/11/17 13:11 Dose: 80 mg Heparin Sodium (Porcine) (Heparin -) 5,000 unit IVPUSH PRN PRN PRN Reason: HEPARIN PROTOCOL Last Admin: 08/11/17 09:24 Dose: 5,000 unit Heparin Sodium (Porcine) (Heparin -) 1,000 unit IVPUSH PRN PRN PRN Reason: HEPARIN PROTOCOL HEPARIN SOD,PORK IN 0.45% NACL (Heparin-1/2ns 25,000 Units/500) 25,000 units in 500 mls @ 20 mls/hr IVPB TITR NEIL; 1,000 UNITS/HR PRN Reason: Protocol Last Admin: 08/11/17 09:30 Dose: Not Given Insulin Aspart (Novolog Vial Sliding Scale -) 1 vial SQ ACHS [facility] PRN Reason: Protocol Last Admin: 08/11/17 11:47 Dose: Not Given Insulin Detemir (Levemir Vial) 40 units SQ BID@0700,2200 [facility] Last Admin: 08/11/17 07:23 Dose: Not Given Lactulose (Cephulac (Oral Use)) 20 gm PO DAILY [facility] Last Admin: 08/11/17 09:10 Dose: Not Given Levothyroxine Sodium (Synthroid -) 100 mcg PO DAILY@0700 [facility] Last Admin: 08/11/17 06:40 Dose: 100 mcg Metronidazole (Metrogel 0.75% Gel -) 1 applic TP BID [facility] Last Admin: 08/11/17 11:41 Dose: 1 applic Mupirocin (Bactroban 2% Ointment -) 1 applic TP DAILY [facility] Last Admin: 08/11/17 09:23 Dose: 1 applic Non-Formulary Medication (Linaclotide [Linzess]) 290 mcg PO DAILY [facility] Nystatin (Nystop Powder -) 1 applic TP DAILY [facility] Last Admin: 08/11/17 09:23 Dose: 1 applic Oxycodone HCl (Roxicodone -) 10 mg PO HS [facility] Last Admin: 08/10/17 21:26 Dose: Not Given Oxycodone HCl (Roxicodone -) 10 mg PO Q4H PRN PRN Reason: PAIN LEVEL 6-10 Last Admin: 08/11/17 13:11 Dose: 10 mg Tamsulosin HCl (Flomax -) 0.4 mg PO DAILY@0830 [facility] Last Admin: 08/11/17 09:22 Dose: 0.4 mg - Objective Vital Signs: Vital Signs Temperature 98.4 F 08/11/17 10:00 Pulse Rate 88 08/11/17 10:00 Respiratory Rate 21 08/11/17 10:00 Blood Pressure 101/63 08/11/17 10:00 O2 Sat by Pulse Oximetry (%) 98 08/11/17 09:00 Constitutional: Yes: No Distress, Calm, Obese Cardiovascular: Yes: Regular Rate and Rhythm Respiratory: Yes: Regular, On BiPap, On Nasal O2, Poor Air Entry Gastrointestinal: Yes: Normal Bowel Sounds, Soft Musculoskeletal: Yes: WNL Extremities: Yes: Other Edema: LLE: 1+, RLE: 1+ Neurological: Yes: Alert, Oriented Psychiatric: Yes: Alert, Oriented Labs: CBC, BMP 08/11/17 05:30 08/10/17 06:35 INR, PTT INR 1.96 (0.82-1.09) H 08/08/17 05:34 Assessment/Plan Problem List - Problems (1) Acute renal insufficiency Code(s): N28.9 - DISORDER OF KIDNEY AND URETER, UNSPECIFIED (2) Atrial fibrillation Code(s): I48.91 - UNSPECIFIED ATRIAL FIBRILLATION Qualifiers: Atrial fibrillation type: chronic Qualified Code(s): I48.2 - Chronic atrial fibrillation (3) BPH (benign prostatic hyperplasia) Code(s): N40.0 - BENIGN PROSTATIC HYPERPLASIA WITHOUT LOWER URINRY TRACT SYMP (4) CHF (congestive heart failure) Code(s): I50.9 - HEART FAILURE, UNSPECIFIED Qualifiers: Heart failure type: unspecified Heart failure chronicity: acute on chronic Qualified Code(s): I50.9 - Heart failure, unspecified (5) Acute renal failure (ARF) Code(s): N17.9 - ACUTE KIDNEY FAILURE, UNSPECIFIED (6) CAD (coronary artery disease) Code(s): I25.10 - ATHSCL HEART DISEASE OF [place] CORONARY ARTERY W/O ANG PCTRS (7) COPD (chronic obstructive pulmonary disease) Code(s): J44.9 - CHRONIC OBSTRUCTIVE PULMONARY DISEASE, UNSPECIFIED (8) Cellulitis of right leg Code(s): L03.115 - CELLULITIS OF RIGHT LOWER LIMB (9) Diabetes Code(s): E11.9 - TYPE 2 DIABETES MELLITUS WITHOUT COMPLICATIONS (10) Dyslipidemia Code(s): E78.5 - HYPERLIPIDEMIA, UNSPECIFIED (11) Obesities, morbid Code(s): E66.01 - MORBID (SEVERE) OBESITY DUE TO EXCESS CALORIES (12) Open left ankle fracture Code(s): S82.892B - OTH FRACTURE OF LEFT LOWER LEG, INIT FOR OPN FX TYPE I/2 Qualifiers: Encounter type: initial encounter (13) Sleep apnea Code(s): G47.30 - SLEEP APNEA, UNSPECIFIED (14) Venous (peripheral) insufficiency Code(s): I87.2 - VENOUS INSUFFICIENCY (CHRONIC) (PERIPHERAL) (15) Venous ulcer Code(s): I87.8 - OTHER SPECIFIED DISORDERS OF VEINS Assessment/Plan 61 y.o. male with PMH of DM, morbid obesity, CAD, CHF, AFIB, CKD, BPH, LLE compound fracture s/p external fixation with hardware in place, RLE cellulitis, LE infected ulcers receiving IV antibiotics in [place] presenting with urinary retention, KRUNAL and generalized rash and elevated Vancomycin levels Hx of RLE cellulitis/LLE infected ulcers - appears to have improved Rash resolving KRUNAL on CKD Urinary retention plan continue to monitor care of the fracture resp support diet no abx further plan awaited
[2017-08-11] MEDS: ATORVASTATIN CA 80 MG TABLET (FP) PO SCH (22:13)
[2017-08-11] MEDS: oxyCODONE HCL 5 MG TABLET PO SCH (22:13)
[2017-08-11] MEDS: ACETAMINOPHEN 325 MG TABLET (FP) PO SCH (22:14)
[2017-08-12] MEDS: HEPARIN SOD,PORK IN 0.45% NACL 25,000 UNITS/500 ML INFUS.BAG IVPB SCH ×2 (01:44→13:29)
[2017-08-12] MEDS: HEPARIN NA (PORCINE) 5,000 UNITS/ML 1ML VIAL IVPUSH PRN (01:44)
[2017-08-12] MEDS: oxyCODONE HCL 5 MG TABLET PO PRN ×4 (02:12→19:54)
[2017-08-12] MEDS ORDERED: LIDOCAINE HCL 2% JELLY (5 ML/TUBE) TP ONE (03:13)
[2017-08-12] MEDS: ALBUTEROL SO4 2.5/IPRATROPIUM 0.5 INH SOL 3 ML VIAL.NEB. NEB PRN (03:29)
[2017-08-12] MEDS: LEVOTHYROXINE NA 100 MCG TABLET (FP) PO SCH (06:42)
[2017-08-12] MEDS: INSULIN SLIDING SCALE (NOVOLOG) 1 VIAL SQ SCH ×4 (06:43→21:48)
[2017-08-12] MEDS: FUROSEMIDE 40 MG TABLET (FP) PO SCH ×2 (06:43→15:32)
[2017-08-12] MEDS: DOCUSATE SODIUM 100 MG CAPSULE (FP) PO SCH ×3 (06:43→21:46)
[2017-08-12] MEDS: INSULIN (LEVEMIR) 100 UNITS/ML UNITS SQ SCH ×2 (06:45→21:47)
--- NOTE | 2017-08-12 07:04 | HOSP ---
Subjective - Review of Symptoms Events since last encounter: Hospitalist Encounter Notified by RN that the patient reports having penile- ferguson discomfort and wants to speak with the provider about it. Subjective: Arrived to bedside, patient is awake, alert and oriented Patient reports having some relief after having topical lidocaine applied to urethra area. Genitourinary: Yes: Other (penile pain) Physical Examination Vital Signs: Vital Signs Temperature 97.7 F 08/12/17 05:24 Pulse Rate 74 08/12/17 05:24 Respiratory Rate 20 08/12/17 05:24 Blood Pressure 114/68 08/12/17 05:24 O2 Sat by Pulse Oximetry (%) 95 08/11/17 21:00 Constitutional: Yes: Well Nourished, Obese Eyes: Yes: WNL, Conjunctiva Clear, EOM Intact, PERRL HENT: Yes: WNL, Atraumatic, Normocephalic Cardiovascular: Yes: WNL, Regular Rate and Rhythm, S1, S2 Respiratory: Yes: CTA Bilaterally, Other (CPAP) Gastrointestinal: Yes: WNL, Normal Bowel Sounds, Abdomen, Obese Musculoskeletal: Yes: Other (Ex Fix to L- leg) Labs: CBC, BMP 08/11/17 05:30 08/10/17 06:35 Hospitalist Encounter Assessment: Plan: Lidocaine Jelly top prn
[2017-08-12 07:31] LABS: HEMATOCRIT 28.4 % (35.4-49); HEMOGLOBIN 9.2 GM/dL (11.7-16.9); MCHC 32.3 g/dl (32.0-35.9); MEAN PLT VOLUME 8.2 fl (7.5-11.1); PLATELET COUNT 180 K/MM3 (134-434); RBC 2.96 M/mm3 (4.00-5.60); WHITE BLOOD COUNT 6.3 K/mm3 (4.0-10.0)
[2017-08-12 07:47] LABS: ANION GAP 5 (8-16); BLOOD UREA NITROGEN 86 mg/dL (7-18); CHLORIDE 103 mmol/L (98-107); CO2 30 mmol/L (21-32); CREATININE 2.2 mg/dL (0.7-1.3); GLUCOSE,RANDOM 174 mg/dL (74-106); POTASSIUM 4.8 mmol/L (3.5-5.1); SODIUM 138 mmol/L (136-145)
[2017-08-12] MEDS: TAMSULOSIN HCL 0.4 MG CAP.ER.24H (FP) PO SCH (08:13)
[2017-08-12 09:03] LABS: URINE APPEARANCE CLOUDY; URINE BILIRUBIN NEGATIVE (<2.0 mg/dL); URINE COLOR YELLOW; URINE GLUCOSE (UA) NEGATIVE (NEGATIVE); URINE KETONE NEGATIVE (NEGATIVE); URINE NITRITE NEGATIVE (NEGATIVE); URINE UROBILINOGEN NEGATIVE mg/dL (0.2-1.0)
--- NOTE | 2017-08-12 09:03 | PN ---
Progress Note, Physician Chief Complaint: no cp or sob - Current Medication List Current Medications: Active Medications Acetaminophen (Tylenol -) 650 mg PO HS [facility] Last Admin: 08/11/17 22:14 Dose: 650 mg Albuterol/Ipratropium (Duoneb -) 1 amp NEB Q6H PRN PRN Reason: SHORTNESS OF BREATH Last Admin: 08/12/17 03:29 Dose: 1 amp Aspirin (Asa -) 81 mg PO DAILY [facility] Last Admin: 08/11/17 09:09 Dose: 81 mg Atenolol (Tenormin -) 100 mg PO BID [facility] Last Admin: 08/11/17 22:14 Dose: 100 mg Atorvastatin Calcium (Lipitor -) 80 mg PO HS [facility] Last Admin: 08/11/17 22:13 Dose: 80 mg Bisacodyl (Dulcolax -) 10 mg PO DAILY [facility] Last Admin: 08/11/17 09:11 Dose: Not Given Collagenase (Santyl -) 1 applic TP DAILY [facility] Last Admin: 08/11/17 09:23 Dose: 1 applic Docusate Sodium (Colace -) 100 mg PO TID [facility] Last Admin: 08/12/17 06:43 Dose: 100 mg Furosemide (Lasix -) 80 mg PO BIDLASIX [facility] Last Admin: 08/12/17 06:43 Dose: 80 mg Heparin Sodium (Porcine) (Heparin -) 5,000 unit IVPUSH PRN PRN PRN Reason: HEPARIN PROTOCOL Last Admin: 08/12/17 01:44 Dose: 5,000 unit Heparin Sodium (Porcine) (Heparin -) 1,000 unit IVPUSH PRN PRN PRN Reason: HEPARIN PROTOCOL HEPARIN SOD,PORK IN 0.45% NACL (Heparin-1/2ns 25,000 Units/500) 25,000 units in 500 mls @ 20 mls/hr IVPB TITR NEIL; 1,000 UNITS/HR PRN Reason: Protocol Last Admin: 08/12/17 01:44 Dose: 1,750 units/hr, 35 mls/hr Insulin Aspart (Novolog Vial Sliding Scale -) 1 vial SQ ACHS [facility] PRN Reason: Protocol Last Admin: 08/12/17 06:43 Dose: Not Given Insulin Detemir (Levemir Vial) 40 units SQ BID@0700,2200 [facility] Last Admin: 08/12/17 06:45 Dose: 40 units Lactulose (Cephulac (Oral Use)) 20 gm PO DAILY [facility] Last Admin: 08/11/17 09:10 Dose: Not Given Levothyroxine Sodium (Synthroid -) 100 mcg PO DAILY@0700 [facility] Last Admin: 08/12/17 06:42 Dose: 100 mcg Metronidazole (Metrogel 0.75% Gel -) 1 applic TP BID [facility] Last Admin: 08/11/17 22:24 Dose: 1 applic Mupirocin (Bactroban 2% Ointment -) 1 applic TP DAILY [facility] Last Admin: 08/11/17 09:23 Dose: 1 applic Non-Formulary Medication (Linaclotide [Linzess]) 290 mcg PO DAILY [facility] Nystatin (Nystop Powder -) 1 applic TP DAILY [facility] Last Admin: 08/11/17 09:23 Dose: 1 applic Oxycodone HCl (Roxicodone -) 10 mg PO HS [facility] Last Admin: 08/11/17 22:13 Dose: 10 mg Oxycodone HCl (Roxicodone -) 10 mg PO Q4H PRN PRN Reason: PAIN LEVEL 6-10 Last Admin: 08/12/17 06:44 Dose: 10 mg Tamsulosin HCl (Flomax -) 0.4 mg PO DAILY@0830 [facility] Last Admin: 08/12/17 08:13 Dose: 0.4 mg - Objective Vital Signs: Vital Signs Temperature 97.7 F 08/12/17 05:24 Pulse Rate 72 08/12/17 07:00 Respiratory Rate 20 08/12/17 07:00 Blood Pressure 123/52 08/12/17 07:00 O2 Sat by Pulse Oximetry (%) 95 08/11/17 21:00 Constitutional: Yes: Calm Cardiovascular: Yes: Pulse Irregular Respiratory: Yes: CTA Bilaterally Gastrointestinal: Yes: Soft, Abdomen, Obese Edema: Yes Edema: LLE: 1+, RLE: 1+ Neurological: Yes: Alert ...Motor Strength: WNL Labs: CBC, BMP 08/12/17 06:25 08/12/17 06:35 INR, PTT INR 1.96 (0.82-1.09) H 08/08/17 05:34 Assessment/Plan IMP: Acute on chronic RF, hyperK+, improved Permanent AF CAD s/p PCI ASHLEY Chronic diastolic CHF REC: 1. Hold NOAC, use heparin gtts in setting ARF. Resume ASA 81mg, h/o CAD w/ PCI 2. HyperK improved. D/C tele 3. Further Rx ARF as per PMD and Urology
[2017-08-12 09:05] LABS: URINE LEUK ESTERASE 3+ (NEGATIVE); URINE PROTEIN 1+ (NEGATIVE)
[2017-08-12 09:11] LABS: EPI CELLS RARE /HPF (FEW); URINE BACTERIA MODERATE /hpf (NONE SEEN); URINE HYALINE CAST 12 /lpf; URINE MUCUS RARE; YEAST MODERATE
--- NOTE | 2017-08-12 09:30 | PN ---
Progress Note (short form) - Note Progress Note: Pt seen and examined. He is not complaining of any significant pain in his left leg. Ex Fix looks good, in place, nothing loose. Only very small amount of serous drainage. No pus. Skin does not look cellulitic. Overall the pt's left leg looks good. No changes in orthopedic care at this time.
[2017-08-12] MEDS: BISACODYL 5 MG TABLET.DR (FP) PO SCH (10:46)
[2017-08-12] MEDS: ASPIRIN 81 MG CHEWABLE TABLETS PO SCH (10:46)
[2017-08-12] MEDS: LACTULOSE 20 GM/30 ML UDC (FOR ORAL USE ONLY) PO SCH (10:46)
[2017-08-12] MEDS: ATENOLOL 50 MG TABLET (FP) PO SCH ×2 (10:47→21:49)
[2017-08-12] MEDS: metroNIDAZOLE 0.75% TOPICAL GEL 45 GM TUBE TP SCH ×2 (10:49→21:48)
[2017-08-12] MEDS: NYSTATIN POWDER 100,000 UNITS/GM - 15 GM TOPICAL POWDER TP SCH (10:49)
[2017-08-12] MEDS: MUPIROCIN 2% TOPICAL OINTMENT 22 GM TUBE TP SCH (10:50)
[2017-08-12] MEDS: COLLAGENASE CLOSTRIDIUM HIST. 30 GRAMS TUBE TP SCH (13:40)
--- NOTE | 2017-08-12 13:50 | PN ---
Progress Note, Physician Chief Complaint: Seen by Dr Srivastava -note appreciated. After exam-fell a pop in the ankle-wants to repeat x-ray. History of Present Illness: Recent hospitalization for acute cellulitis RLE after fall CAN [employer]. The patient sustained open left ankle fracture while at [facility] and had subsequent external fixation by Dr. Thayer Morbid obesity. ASHLEY. Bilateral PE. Pulmonary HTN-CTEPH , ASHLEY AND CLASS 2 PAH. CHF-mostly diastolic. ASHD. STEMI in 2016 with MICHAEL x2 placed at [facility]. Chronic A.Fib-on a/c-Xarelto/ASA now. Gout. Gouty arthritis CKD 3 DM type 2. Chronic DVT Right thigh, Stasis ulcers, edema. Chronic wound right Ankle/dobbs-RX at [facility]-groing multiple organisms. - Current Medication List Current Medications: Active Medications Acetaminophen (Tylenol -) 650 mg PO HS [facility] Last Admin: 08/11/17 22:14 Dose: 650 mg Albuterol/Ipratropium (Duoneb -) 1 amp NEB Q6H PRN PRN Reason: SHORTNESS OF BREATH Last Admin: 08/12/17 03:29 Dose: 1 amp Aspirin (Asa -) 81 mg PO DAILY [facility] Last Admin: 08/12/17 10:46 Dose: 81 mg Atenolol (Tenormin -) 100 mg PO BID [facility] Last Admin: 08/12/17 10:47 Dose: 100 mg Atorvastatin Calcium (Lipitor -) 80 mg PO HS [facility] Last Admin: 08/11/17 22:13 Dose: 80 mg Bisacodyl (Dulcolax -) 10 mg PO DAILY [facility] Last Admin: 08/12/17 10:46 Dose: 10 mg Collagenase (Santyl -) 1 applic TP DAILY [facility] Last Admin: 08/12/17 13:40 Dose: 1 applic Docusate Sodium (Colace -) 100 mg PO TID [facility] Last Admin: 08/12/17 13:33 Dose: Not Given Furosemide (Lasix -) 80 mg PO BIDLASIX [facility] Last Admin: 08/12/17 06:43 Dose: 80 mg Heparin Sodium (Porcine) (Heparin -) 5,000 unit IVPUSH PRN PRN PRN Reason: HEPARIN PROTOCOL Last Admin: 08/12/17 01:44 Dose: 5,000 unit Heparin Sodium (Porcine) (Heparin -) 1,000 unit IVPUSH PRN PRN PRN Reason: HEPARIN PROTOCOL HEPARIN SOD,PORK IN 0.45% NACL (Heparin-1/2ns 25,000 Units/500) 25,000 units in 500 mls @ 20 mls/hr IVPB TITR NEIL; 1,000 UNITS/HR PRN Reason: Protocol Last Admin: 08/12/17 13:29 Dose: Not Given Insulin Aspart (Novolog Vial Sliding Scale -) 1 vial SQ ACHS NEIL PRN Reason: Protocol Last Admin: 08/12/17 12:04 Dose: Not Given Insulin Detemir (Levemir Vial) 40 units SQ BID@0700,2200 [facility] Last Admin: 08/12/17 06:45 Dose: 40 units Lactulose (Cephulac (Oral Use)) 20 gm PO DAILY [facility] Last Admin: 08/12/17 10:46 Dose: 20 gm Levothyroxine Sodium (Synthroid -) 100 mcg PO DAILY@0700 [facility] Last Admin: 08/12/17 06:42 Dose: 100 mcg Metronidazole (Metrogel 0.75% Gel -) 1 applic TP BID [facility] Last Admin: 08/12/17 10:49 Dose: 1 applic Mupirocin (Bactroban 2% Ointment -) 1 applic TP DAILY [facility] Last Admin: 08/12/17 10:50 Dose: 1 applic Non-Formulary Medication (Linaclotide [Linzess]) 290 mcg PO DAILY [facility] Nystatin (Nystop Powder -) 1 applic TP DAILY [facility] Last Admin: 08/12/17 10:49 Dose: 1 applic Oxycodone HCl (Roxicodone -) 10 mg PO HS [facility] Last Admin: 08/11/17 22:13 Dose: 10 mg Oxycodone HCl (Roxicodone -) 10 mg PO Q4H PRN PRN Reason: PAIN LEVEL 6-10 Last Admin: 08/12/17 13:28 Dose: 10 mg Tamsulosin HCl (Flomax -) 0.4 mg PO DAILY@0830 [facility] Last Admin: 08/12/17 08:13 Dose: 0.4 mg - Objective Vital Signs: Vital Signs Temperature 98.1 F 08/12/17 10:00 Pulse Rate 72 08/12/17 10:00 Respiratory Rate 20 08/12/17 10:00 Blood Pressure 120/63 08/12/17 10:00 O2 Sat by Pulse Oximetry (%) 95 08/11/17 21:00 Constitutional: Yes: Calm, Mild Distress, Obese, Pallor. No: Diaphoresis Eyes: Yes: Conjunctiva Clear, EOM Intact HENT: Yes: Atraumatic, Normocephalic. No: Drooling Cardiovascular: Yes: Pulse Irregular, S1, S2. No: Bradycardia, Tachycardia, JVD , Murmur, Rub Respiratory: Yes: Regular, CTA Bilaterally, On BiPap Gastrointestinal: Yes: Normal Bowel Sounds, Soft, Abdomen, Obese. No: Ascites, Palpable Mass, Tenderness ...Rectal Exam: Yes: Deferred Genitourinary: Yes: Boyle Present. No: Anuria Breast(s): Yes: Left, Right Musculoskeletal: Yes: Muscle Pain, Other (left ankle external fixation) Edema: LLE: Trace, RLE: Trace Peripheral Pulses WNL: No Neurological: Yes: Alert, Oriented. No: Aphasia, Dysarthria, Seizure, Tremors, Unresponsive ...Motor Strength: WNL Psychiatric: Yes: Alert, Oriented. No: Agitated Labs: CBC, BMP 08/12/17 06:25 08/12/17 06:35 INR, PTT INR 1.96 (0.82-1.09) H 08/08/17 05:34 Problem List - Problems (1) Acute renal insufficiency Assessment/Plan: Potassium improved. Avoid UVALDO and ARB. Follow renal fx. Code(s): N28.9 - DISORDER OF KIDNEY AND URETER, UNSPECIFIED (2) Atrial fibrillation Assessment/Plan: Continue Heparin IV, VR control. Code(s): I48.91 - UNSPECIFIED ATRIAL FIBRILLATION Qualifiers: Atrial fibrillation type: chronic Qualified Code(s): I48.2 - Chronic atrial fibrillation (3) BPH (benign prostatic hyperplasia) Assessment/Plan: Continue Boyle, Flomax as per Dr Ivy Code(s): N40.0 - BENIGN PROSTATIC HYPERPLASIA WITHOUT LOWER URINRY TRACT SYMP (4) CHF (congestive heart failure) Assessment/Plan: IV Lasix , Follow edema, UA output Code(s): I50.9 - HEART FAILURE, UNSPECIFIED Qualifiers: Heart failure type: unspecified Heart failure chronicity: acute on chronic Qualified Code(s): I50.9 - Heart failure, unspecified (5) Accident due to mechanical fall without injury Assessment/Plan: ortho f/u PT Follow x-rays Code(s): W19.XXXA - UNSPECIFIED FALL, INITIAL ENCOUNTER Qualifiers: Encounter type: subsequent encounter Qualified Code(s): W19.XXXD - Unspecified fall, subsequent encounter (6) Severe pain Assessment/Plan: Receiving Oxycodon every 4 hrs Code(s): R52 - PAIN, UNSPECIFIED (7) Urinary (tract) obstruction Assessment/Plan: Last night after Boyle out-urine retention Spoke to . Will ask F/u Code(s): N13.9 - OBSTRUCTIVE AND REFLUX UROPATHY, UNSPECIFIED
--- NOTE | 2017-08-12 16:20 | PN ---
Progress Note, Physician History of Present Illness: Pt seen and examined at bedside. He is awake and appears comfortable today. - Current Medication List Current Medications: Active Medications Acetaminophen (Tylenol -) 650 mg PO HS [facility] Last Admin: 08/11/17 22:14 Dose: 650 mg Aspirin (Asa -) 81 mg PO DAILY [facility] Last Admin: 08/12/17 10:46 Dose: 81 mg Atenolol (Tenormin -) 100 mg PO BID [facility] Last Admin: 08/12/17 10:47 Dose: 100 mg Atorvastatin Calcium (Lipitor -) 80 mg PO HS [facility] Last Admin: 08/11/17 22:13 Dose: 80 mg Bisacodyl (Dulcolax -) 10 mg PO DAILY [facility] Last Admin: 08/12/17 10:46 Dose: 10 mg Collagenase (Santyl -) 1 applic TP DAILY [facility] Last Admin: 08/12/17 13:40 Dose: 1 applic Docusate Sodium (Colace -) 100 mg PO TID [facility] Last Admin: 08/12/17 13:33 Dose: Not Given Furosemide (Lasix -) 80 mg PO BIDLASIX [facility] Last Admin: 08/12/17 15:32 Dose: 80 mg Heparin Sodium (Porcine) (Heparin -) 5,000 unit IVPUSH PRN PRN PRN Reason: HEPARIN PROTOCOL Last Admin: 08/12/17 01:44 Dose: 5,000 unit Heparin Sodium (Porcine) (Heparin -) 1,000 unit IVPUSH PRN PRN PRN Reason: HEPARIN PROTOCOL HEPARIN SOD,PORK IN 0.45% NACL (Heparin-1/2ns 25,000 Units/500) 25,000 units in 500 mls @ 20 mls/hr IVPB TITR NEIL; 1,000 UNITS/HR PRN Reason: Protocol Last Admin: 08/12/17 13:29 Dose: Not Given Insulin Aspart (Novolog Vial Sliding Scale -) 1 vial SQ ACHS [facility] PRN Reason: Protocol Last Admin: 08/12/17 12:04 Dose: Not Given Insulin Detemir (Levemir Vial) 40 units SQ BID@0700,2200 [facility] Last Admin: 08/12/17 06:45 Dose: 40 units Lactulose (Cephulac (Oral Use)) 20 gm PO DAILY [facility] Last Admin: 08/12/17 10:46 Dose: 20 gm Levothyroxine Sodium (Synthroid -) 100 mcg PO DAILY@0700 [facility] Last Admin: 08/12/17 06:42 Dose: 100 mcg Metronidazole (Metrogel 0.75% Gel -) 1 applic TP BID [facility] Last Admin: 08/12/17 10:49 Dose: 1 applic Mupirocin (Bactroban 2% Ointment -) 1 applic TP DAILY [facility] Last Admin: 08/12/17 10:50 Dose: 1 applic Non-Formulary Medication (Linaclotide [Linzess]) 290 mcg PO DAILY [facility] Nystatin (Nystop Powder -) 1 applic TP DAILY [facility] Last Admin: 08/12/17 10:49 Dose: 1 applic Oxycodone HCl (Roxicodone -) 10 mg PO HS [facility] Last Admin: 08/11/17 22:13 Dose: 10 mg Oxycodone HCl (Roxicodone -) 10 mg PO Q4H PRN PRN Reason: PAIN LEVEL 6-10 Last Admin: 08/12/17 13:28 Dose: 10 mg Tamsulosin HCl (Flomax -) 0.4 mg PO DAILY@0830 [facility] Last Admin: 08/12/17 08:13 Dose: 0.4 mg - Objective Vital Signs: Vital Signs Temperature 98.2 F 08/12/17 14:25 Pulse Rate 78 08/12/17 14:25 Respiratory Rate 20 08/12/17 14:25 Blood Pressure 100/55 08/12/17 14:25 O2 Sat by Pulse Oximetry (%) 95 08/11/17 21:00 Constitutional: Yes: Calm, Poor Hygeine HENT: Yes: Atraumatic Neck: Yes: Supple Cardiovascular: Yes: S1, S2 Respiratory: Yes: Other (on cpap) Gastrointestinal: Yes: Soft Genitourinary: Yes: Ferguson Present Edema: Yes Edema: LLE: 2+, RLE: 2+ Integumentary: Yes: Venous Stasis Changes Neurological: Yes: Oriented Psychiatric: Yes: Oriented Labs: CBC, BMP 08/12/17 06:25 08/12/17 06:35 INR, PTT INR 1.96 (0.82-1.09) H 08/08/17 05:34 Problem List - Problems (1) Acute renal insufficiency Code(s): N28.9 - DISORDER OF KIDNEY AND URETER, UNSPECIFIED (2) Atrial fibrillation Code(s): I48.91 - UNSPECIFIED ATRIAL FIBRILLATION Qualifiers: Atrial fibrillation type: chronic Qualified Code(s): I48.2 - Chronic atrial fibrillation (3) BPH (benign prostatic hyperplasia) Code(s): N40.0 - BENIGN PROSTATIC HYPERPLASIA WITHOUT LOWER URINRY TRACT SYMP (4) CHF (congestive heart failure) Code(s): I50.9 - HEART FAILURE, UNSPECIFIED Qualifiers: Heart failure type: unspecified Heart failure chronicity: acute on chronic Qualified Code(s): I50.9 - Heart failure, unspecified (5) Acute renal failure (ARF) Code(s): N17.9 - ACUTE KIDNEY FAILURE, UNSPECIFIED (6) CAD (coronary artery disease) Code(s): I25.10 - ATHSCL HEART DISEASE OF [place] CORONARY ARTERY W/O ANG PCTRS (7) CKD (chronic kidney disease) Code(s): N18.9 - CHRONIC KIDNEY DISEASE, UNSPECIFIED (8) Cellulitis Code(s): L03.90 - CELLULITIS, UNSPECIFIED Assessment/Plan Current Medications Generic Name Dose Route Start Last Admin Trade Name Freq PRN Reason Stop Dose Admin Acetaminophen 650 mg 08/07/17 22:00 08/11/17 22:14 Tylenol - PO 650 mg HS NEIL Administration Aspirin 81 mg 08/11/17 10:00 08/12/17 10:46 Asa - PO 81 mg DAILY NEIL Administration Atenolol 100 mg 08/07/17 13:35 08/12/17 10:47 Tenormin - PO 100 mg BID NEIL Administration Atorvastatin Calcium 80 mg 08/07/17 22:00 08/11/17 22:13 Lipitor - PO 80 mg HS NEIL Administration Bisacodyl 10 mg 08/07/17 10:00 08/12/17 10:46 Dulcolax - PO 10 mg DAILY NEIL Administration Collagenase 1 applic 08/07/17 10:00 08/12/17 13:40 Santyl - TP 1 applic DAILY NEIL Administration Docusate Sodium 100 mg 08/07/17 13:45 08/12/17 13:33 Colace - PO Not Given TID NEIL Furosemide 80 mg 08/07/17 06:00 08/12/17 15:32 Lasix - PO 80 mg BIDLASIX NEIL Administration Heparin Sodium (Porcine) 5,000 unit 08/09/17 08:50 08/12/17 01:44 Heparin - IVPUSH 5,000 unit PRN PRN Administration HEPARIN PROTOCOL Heparin Sodium (Porcine) 1,000 unit 08/09/17 08:50 Heparin - IVPUSH PRN PRN HEPARIN PROTOCOL HEPARIN SOD,PORK IN 0.45% NACL 25,000 units in 500 mls @ 20 mls/hr 08/10/17 08 :45 08/12/17 13:29 Heparin-1/2ns 25,000 Units/500 IVPB Not Given TITR NEIL Protocol 1,000 UNITS/HR Insulin Aspart 1 vial 08/07/17 07:00 08/12/17 12:04 Novolog Vial Sliding Scale - SQ Not Given ACHS NEIL Protocol Insulin Detemir 40 units 08/07/17 07:00 08/12/17 06:45 Levemir Vial SQ 40 units BID@0700,2200 NEIL Administration Lactulose 20 gm 08/10/17 14:15 08/12/17 10:46 Cephulac (Oral Use) PO 20 gm DAILY NEIL Administration Levothyroxine Sodium 100 mcg 08/07/17 07:00 08/12/17 06:42 Synthroid - PO 100 mcg DAILY@0700 NEIL Administration Metronidazole 1 applic 08/07/17 10:00 08/12/17 10:49 Metrogel 0.75% Gel - TP 1 applic BID NEIL Administration Mupirocin 1 applic 08/07/17 10:00 08/12/17 10:50 Bactroban 2% Ointment - TP 1 applic DAILY NEIL Administration Non-Formulary Medication 290 mcg 08/07/17 10:00 Linaclotide [Linzess] PO DAILY NEIL Nystatin 1 applic 08/11/17 10:00 08/12/17 10:49 Nystop Powder - TP 1 applic DAILY NEIL Administration Oxycodone HCl 10 mg 08/07/17 22:00 08/11/17 22:13 Roxicodone - PO 10 mg HS NEIL Administration Oxycodone HCl 10 mg 08/07/17 03:52 08/12/17 13:28 Roxicodone - PO 10 mg Q4H PRN Administration PAIN LEVEL 6-10 Tamsulosin HCl 0.4 mg 08/07/17 11:45 08/12/17 08:13 Flomax - PO 0.4 mg DAILY@0830 NEIL Administration Impression 1. CKD 2. KRUNAL 3. volume overload 4. morbid obesity 5. CAD 6. cellulitis 7. s/p fall 8. a-fib 9. DM 10. hypothyroidism 11. HLD 12. CHF 13. s/p leg fracture 14. hyperkalemia 15. constipation Plan - renal function is improving - cont lasix - ferguson in place - urology follow up - would hold off jasmyne or arb for now - renal diet
--- NOTE | 2017-08-12 16:25 | PN ---
Progress Note, Physician History of Present Illness: no new issues says he is doing well on bipap and nasal o2 family in room - Current Medication List Current Medications: Active Medications Acetaminophen (Tylenol -) 650 mg PO HS [facility] Last Admin: 08/11/17 22:14 Dose: 650 mg Aspirin (Asa -) 81 mg PO DAILY [facility] Last Admin: 08/12/17 10:46 Dose: 81 mg Atenolol (Tenormin -) 100 mg PO BID [facility] Last Admin: 08/12/17 10:47 Dose: 100 mg Atorvastatin Calcium (Lipitor -) 80 mg PO HS [facility] Last Admin: 08/11/17 22:13 Dose: 80 mg Bisacodyl (Dulcolax -) 10 mg PO DAILY [facility] Last Admin: 08/12/17 10:46 Dose: 10 mg Collagenase (Santyl -) 1 applic TP DAILY [facility] Last Admin: 08/12/17 13:40 Dose: 1 applic Docusate Sodium (Colace -) 100 mg PO TID [facility] Last Admin: 08/12/17 13:33 Dose: Not Given Furosemide (Lasix -) 80 mg PO BIDLASIX [facility] Last Admin: 08/12/17 15:32 Dose: 80 mg Heparin Sodium (Porcine) (Heparin -) 5,000 unit IVPUSH PRN PRN PRN Reason: HEPARIN PROTOCOL Last Admin: 08/12/17 01:44 Dose: 5,000 unit Heparin Sodium (Porcine) (Heparin -) 1,000 unit IVPUSH PRN PRN PRN Reason: HEPARIN PROTOCOL HEPARIN SOD,PORK IN 0.45% NACL (Heparin-1/2ns 25,000 Units/500) 25,000 units in 500 mls @ 20 mls/hr IVPB TITR NEIL; 1,000 UNITS/HR PRN Reason: Protocol Last Admin: 08/12/17 13:29 Dose: Not Given Insulin Aspart (Novolog Vial Sliding Scale -) 1 vial SQ ACHS [facility] PRN Reason: Protocol Last Admin: 08/12/17 12:04 Dose: Not Given Insulin Detemir (Levemir Vial) 40 units SQ BID@0700,2200 [facility] Last Admin: 08/12/17 06:45 Dose: 40 units Lactulose (Cephulac (Oral Use)) 20 gm PO DAILY [facility] Last Admin: 08/12/17 10:46 Dose: 20 gm Levothyroxine Sodium (Synthroid -) 100 mcg PO DAILY@0700 [facility] Last Admin: 08/12/17 06:42 Dose: 100 mcg Metronidazole (Metrogel 0.75% Gel -) 1 applic TP BID [facility] Last Admin: 08/12/17 10:49 Dose: 1 applic Mupirocin (Bactroban 2% Ointment -) 1 applic TP DAILY [facility] Last Admin: 08/12/17 10:50 Dose: 1 applic Non-Formulary Medication (Linaclotide [Linzess]) 290 mcg PO DAILY [facility] Nystatin (Nystop Powder -) 1 applic TP DAILY [facility] Last Admin: 08/12/17 10:49 Dose: 1 applic Oxycodone HCl (Roxicodone -) 10 mg PO HS [facility] Last Admin: 08/11/17 22:13 Dose: 10 mg Oxycodone HCl (Roxicodone -) 10 mg PO Q4H PRN PRN Reason: PAIN LEVEL 6-10 Last Admin: 08/12/17 13:28 Dose: 10 mg Tamsulosin HCl (Flomax -) 0.4 mg PO DAILY@0830 [facility] Last Admin: 08/12/17 08:13 Dose: 0.4 mg - Objective Vital Signs: Vital Signs Temperature 98.2 F 08/12/17 14:25 Pulse Rate 78 08/12/17 14:25 Respiratory Rate 20 08/12/17 14:25 Blood Pressure 100/55 08/12/17 14:25 O2 Sat by Pulse Oximetry (%) 95 08/11/17 21:00 Constitutional: Yes: No Distress, Calm, Obese Cardiovascular: Yes: Regular Rate and Rhythm Respiratory: Yes: On BiPap, On Nasal O2 Gastrointestinal: Yes: Normal Bowel Sounds, Soft Musculoskeletal: Yes: WNL Extremities: Yes: Other Wound/Incision: Yes: Other Neurological: Yes: Alert, Oriented Psychiatric: Yes: Alert, Oriented Labs: CBC, BMP 08/12/17 06:25 08/12/17 06:35 INR, PTT INR 1.96 (0.82-1.09) H 08/08/17 05:34 Assessment/Plan Problem List - Problems (1) Acute renal insufficiency Code(s): N28.9 - DISORDER OF KIDNEY AND URETER, UNSPECIFIED (2) Atrial fibrillation Code(s): I48.91 - UNSPECIFIED ATRIAL FIBRILLATION Qualifiers: Atrial fibrillation type: chronic Qualified Code(s): I48.2 - Chronic atrial fibrillation (3) BPH (benign prostatic hyperplasia) Code(s): N40.0 - BENIGN PROSTATIC HYPERPLASIA WITHOUT LOWER URINRY TRACT SYMP (4) CHF (congestive heart failure) Code(s): I50.9 - HEART FAILURE, UNSPECIFIED Qualifiers: Heart failure type: unspecified Heart failure chronicity: acute on chronic Qualified Code(s): I50.9 - Heart failure, unspecified (5) Acute renal failure (ARF) Code(s): N17.9 - ACUTE KIDNEY FAILURE, UNSPECIFIED (6) CAD (coronary artery disease) Code(s): I25.10 - ATHSCL HEART DISEASE OF [place] CORONARY ARTERY W/O ANG PCTRS (7) COPD (chronic obstructive pulmonary disease) Code(s): J44.9 - CHRONIC OBSTRUCTIVE PULMONARY DISEASE, UNSPECIFIED (8) Cellulitis of right leg Code(s): L03.115 - CELLULITIS OF RIGHT LOWER LIMB (9) Diabetes Code(s): E11.9 - TYPE 2 DIABETES MELLITUS WITHOUT COMPLICATIONS (10) Dyslipidemia Code(s): E78.5 - HYPERLIPIDEMIA, UNSPECIFIED (11) Obesities, morbid Code(s): E66.01 - MORBID (SEVERE) OBESITY DUE TO EXCESS CALORIES (12) Open left ankle fracture Code(s): S82.892B - OTH FRACTURE OF LEFT LOWER LEG, INIT FOR OPN FX TYPE I/2 Qualifiers: Encounter type: initial encounter (13) Sleep apnea Code(s): G47.30 - SLEEP APNEA, UNSPECIFIED (14) Venous (peripheral) insufficiency Code(s): I87.2 - VENOUS INSUFFICIENCY (CHRONIC) (PERIPHERAL) (15) Venous ulcer Code(s): I87.8 - OTHER SPECIFIED DISORDERS OF VEINS Assessment/Plan 61 y.o. male with PMH of DM, morbid obesity, CAD, CHF, AFIB, CKD, BPH, LLE compound fracture s/p external fixation with hardware in place, RLE cellulitis, LE infected ulcers receiving IV antibiotics in [place] presenting with urinary retention, KRUNAL and generalized rash and elevated Vancomycin levels Hx of RLE cellulitis/LLE infected ulcers - appears to have improved Rash resolving KRUNAL on CKD Urinary retention plan continue to monitor care of the fracture resp support diet no abx further plan awaited
[2017-08-12] MEDS: oxyCODONE HCL 5 MG TABLET PO SCH (21:34)
[2017-08-12] MEDS: ACETAMINOPHEN 325 MG TABLET (FP) PO SCH (21:42)
[2017-08-12] MEDS: ATORVASTATIN CA 80 MG TABLET (FP) PO SCH (21:48)
[2017-08-13] MEDS ORDERED: ALBUTEROL SO4 2.5/IPRATROPIUM 0.5 INH SOL 3 ML VIAL.NEB. NEB ONE (03:10)
[2017-08-13] MEDS: oxyCODONE HCL 5 MG TABLET PO PRN ×3 (03:51→18:35)
[2017-08-13 06:14] LABS: HEMATOCRIT 27.3 % (35.4-49); HEMOGLOBIN 8.9 GM/dL (11.7-16.9); MCHC 32.5 g/dl (32.0-35.9); MEAN CELL VOLUME 95.2 fl (80-96); PLATELET COUNT 190 K/MM3 (134-434); RBC 2.87 M/mm3 (4.00-5.60); RDW 17.4 % (11.9-15.9); WHITE BLOOD COUNT 6.3 K/mm3 (4.0-10.0)
[2017-08-13] MEDS: INSULIN SLIDING SCALE (NOVOLOG) 1 VIAL SQ SCH ×4 (06:20→21:29)
[2017-08-13] MEDS: INSULIN (LEVEMIR) 100 UNITS/ML UNITS SQ SCH ×2 (06:21→21:27)
[2017-08-13] MEDS: LEVOTHYROXINE NA 100 MCG TABLET (FP) PO SCH (06:21)
[2017-08-13] MEDS: FUROSEMIDE 40 MG TABLET (FP) PO SCH ×2 (06:21→14:00)
[2017-08-13] MEDS: DOCUSATE SODIUM 100 MG CAPSULE (FP) PO SCH ×3 (06:24→21:27)
[2017-08-13 07:17] LABS: BLOOD UREA NITROGEN 81 mg/dL (7-18); CHLORIDE 105 mmol/L (98-107); POTASSIUM 4.4 mmol/L (3.5-5.1); SODIUM 140 mmol/L (136-145)
[2017-08-13 07:19] LABS: ANION GAP 8 (8-16); CALCIUM 8.1 mg/dL (8.5-10.1); CO2 27 mmol/L (21-32); CREATININE 2.1 mg/dL (0.7-1.3); GLUCOSE,RANDOM 123 mg/dL (74-106)
--- NOTE | 2017-08-13 09:07 | PN ---
Progress Note, Physician Chief Complaint: Seen with Dr Thayer Incision -miniml drainage. No infection. History of Present Illness: Recent hospitalization for acute cellulitis RLE after fall [employer]. The patient sustained open left ankle fracture while at [facility] and had subsequent external fixation by Dr. Thayer Morbid obesity. ASHLEY. Bilateral PE. Pulmonary HTN-CTEPH , ASHLEY AND CLASS 2 PAH. CHF-mostly diastolic. ASHD. STEMI in 2016 with MICHAEL x2 placed at [place]. Chronic A.Fib-on a/c-Xarelto/ASA now. Gout. Gouty arthritis CKD 3 DM type 2. Chronic DVT Right thigh, Stasis ulcers, edema. Chronic wound right Ankle/dobbs-RX at [facility]-groing multiple organisms. - Current Medication List Current Medications: Active Medications Acetaminophen (Tylenol -) 650 mg PO HS [facility] Last Admin: 08/12/17 21:42 Dose: Not Given Aspirin (Asa -) 81 mg PO DAILY [facility] Last Admin: 08/12/17 10:46 Dose: 81 mg Atenolol (Tenormin -) 100 mg PO BID [facility] Last Admin: 08/12/17 21:49 Dose: 100 mg Atorvastatin Calcium (Lipitor -) 80 mg PO HS [facility] Last Admin: 08/12/17 21:48 Dose: 80 mg Bisacodyl (Dulcolax -) 10 mg PO DAILY [facility] Last Admin: 08/12/17 10:46 Dose: 10 mg Collagenase (Santyl -) 1 applic TP DAILY [facility] Last Admin: 08/12/17 13:40 Dose: 1 applic Docusate Sodium (Colace -) 100 mg PO TID [facility] Last Admin: 08/13/17 06:24 Dose: Not Given Furosemide (Lasix -) 80 mg PO BIDLASIX [facility] Last Admin: 08/13/17 06:21 Dose: 80 mg Heparin Sodium (Porcine) (Heparin -) 5,000 unit IVPUSH PRN PRN PRN Reason: HEPARIN PROTOCOL Last Admin: 08/12/17 01:44 Dose: 5,000 unit Heparin Sodium (Porcine) (Heparin -) 1,000 unit IVPUSH PRN PRN PRN Reason: HEPARIN PROTOCOL HEPARIN SOD,PORK IN 0.45% NACL (Heparin-1/2ns 25,000 Units/500) 25,000 units in 500 mls @ 20 mls/hr IVPB TITR NEIL; 1,000 UNITS/HR PRN Reason: Protocol Last Admin: 08/12/17 13:29 Dose: Not Given Insulin Aspart (Novolog Vial Sliding Scale -) 1 vial SQ ACHS [facility] PRN Reason: Protocol Last Admin: 08/13/17 06:20 Dose: Not Given Insulin Detemir (Levemir Vial) 40 units SQ BID@0700,2200 [facility] Last Admin: 08/13/17 06:21 Dose: Not Given Lactulose (Cephulac (Oral Use)) 20 gm PO DAILY [facility] Last Admin: 08/12/17 10:46 Dose: 20 gm Levothyroxine Sodium (Synthroid -) 100 mcg PO DAILY@0700 [facility] Last Admin: 08/13/17 06:21 Dose: 100 mcg Metronidazole (Metrogel 0.75% Gel -) 1 applic TP BID [facility] Last Admin: 08/12/17 21:48 Dose: 1 applic Mupirocin (Bactroban 2% Ointment -) 1 applic TP DAILY [facility] Last Admin: 08/12/17 10:50 Dose: 1 applic Non-Formulary Medication (Linaclotide [Linzess]) 290 mcg PO DAILY [facility] Nystatin (Nystop Powder -) 1 applic TP DAILY [facility] Last Admin: 08/12/17 10:49 Dose: 1 applic Oxycodone HCl (Roxicodone -) 10 mg PO HS [facility] Last Admin: 08/12/17 21:34 Dose: Not Given Oxycodone HCl (Roxicodone -) 10 mg PO Q4H PRN PRN Reason: PAIN LEVEL 6-10 Last Admin: 08/13/17 03:51 Dose: 10 mg Tamsulosin HCl (Flomax -) 0.4 mg PO DAILY@0830 [facility] Last Admin: 08/12/17 08:13 Dose: 0.4 mg - Objective Vital Signs: Vital Signs Temperature 98.2 F 08/13/17 06:00 Pulse Rate 78 08/13/17 06:00 Respiratory Rate 20 08/13/17 06:00 Blood Pressure 106/43 08/13/17 06:00 O2 Sat by Pulse Oximetry (%) 95 08/13/17 08:15 Constitutional: Yes: Anxious, Mild Distress Eyes: Yes: Conjunctiva Clear, EOM Intact HENT: Yes: Atraumatic, Normocephalic. No: Drooling Neck: Yes: Supple, Trachea Midline. No: Decreased ROM, Lymphadenopathy Cardiovascular: Yes: Pulse Irregular, S1, S2. No: Tachycardia Respiratory: Yes: Regular, CTA Bilaterally Gastrointestinal: Yes: Normal Bowel Sounds, Soft, Abdomen, Obese ...Rectal Exam: Yes: Deferred Genitourinary: Yes: Boyle Present. No: Anuria Breast(s): Yes: WNL Musculoskeletal: Yes: WNL, Back Pain, Muscle Pain. No: Joint Stiffness, Joint Swelling Extremities: Yes: Other (left ankle external fixation). No: Calf Tenderness, Cold, Erythema Edema: Yes Edema: LLE: Trace, RLE: Trace Peripheral Pulses WNL: No Integumentary: Yes: Incision (left ankle). No: Erythema Wound/Incision: Yes: Other (right ankle wound-dry) Neurological: Yes: Alert, Oriented. No: Aphasia, Dysarthria ...Motor Strength: WNL Psychiatric: Yes: Alert, Oriented. No: Agitated, Suicidal Ideation Labs: CBC, BMP 08/13/17 06:00 08/13/17 06:00 INR, PTT INR 1.96 (0.82-1.09) H 08/08/17 05:34 Problem List - Problems (1) Acute renal insufficiency Assessment/Plan: Potassium improved. Avoid UVALDO and ARB. Follow renal fx. Code(s): N28.9 - DISORDER OF KIDNEY AND URETER, UNSPECIFIED (2) Atrial fibrillation Assessment/Plan: Continue Heparin IV, VR control. Code(s): I48.91 - UNSPECIFIED ATRIAL FIBRILLATION Qualifiers: Atrial fibrillation type: chronic Qualified Code(s): I48.2 - Chronic atrial fibrillation (3) BPH (benign prostatic hyperplasia) Assessment/Plan: Continue Boyle, Flomax as per Dr Ivy Code(s): N40.0 - BENIGN PROSTATIC HYPERPLASIA WITHOUT LOWER URINRY TRACT SYMP (4) CHF (congestive heart failure) Assessment/Plan: IV Lasix , Follow edema, UA output Code(s): I50.9 - HEART FAILURE, UNSPECIFIED Qualifiers: Heart failure type: unspecified Heart failure chronicity: acute on chronic Qualified Code(s): I50.9 - Heart failure, unspecified (5) Accident due to mechanical fall without injury Assessment/Plan: ortho f/u PT Follow x-rays Code(s): W19.XXXA - UNSPECIFIED FALL, INITIAL ENCOUNTER Qualifiers: Encounter type: subsequent encounter Qualified Code(s): W19.XXXD - Unspecified fall, subsequent encounter (6) Severe pain Assessment/Plan: Receiving Oxycodone every 4 hrs Code(s): R52 - PAIN, UNSPECIFIED (7) Urinary (tract) obstruction Assessment/Plan: Last night after Boyle out-urine retention Spoke to . Will ask F/u Code(s): N13.9 - OBSTRUCTIVE AND REFLUX UROPATHY, UNSPECIFIED
--- NOTE | 2017-08-13 09:22 | PN ---
Progress Note, Physician Chief Complaint: no distress - Current Medication List Current Medications: Active Medications Acetaminophen (Tylenol -) 650 mg PO HS [facility] Last Admin: 08/12/17 21:42 Dose: Not Given Aspirin (Asa -) 81 mg PO DAILY [facility] Last Admin: 08/12/17 10:46 Dose: 81 mg Atenolol (Tenormin -) 100 mg PO BID [facility] Last Admin: 08/12/17 21:49 Dose: 100 mg Atorvastatin Calcium (Lipitor -) 80 mg PO HS [facility] Last Admin: 08/12/17 21:48 Dose: 80 mg Bisacodyl (Dulcolax -) 10 mg PO DAILY [facility] Last Admin: 08/12/17 10:46 Dose: 10 mg Collagenase (Santyl -) 1 applic TP DAILY [facility] Last Admin: 08/12/17 13:40 Dose: 1 applic Docusate Sodium (Colace -) 100 mg PO TID [facility] Last Admin: 08/13/17 06:24 Dose: Not Given Furosemide (Lasix -) 80 mg PO BIDLASIX [facility] Last Admin: 08/13/17 06:21 Dose: 80 mg Heparin Sodium (Porcine) (Heparin -) 5,000 unit IVPUSH PRN PRN PRN Reason: HEPARIN PROTOCOL Last Admin: 08/12/17 01:44 Dose: 5,000 unit Heparin Sodium (Porcine) (Heparin -) 1,000 unit IVPUSH PRN PRN PRN Reason: HEPARIN PROTOCOL HEPARIN SOD,PORK IN 0.45% NACL (Heparin-1/2ns 25,000 Units/500) 25,000 units in 500 mls @ 20 mls/hr IVPB TITR NEIL; 1,000 UNITS/HR PRN Reason: Protocol Last Admin: 08/12/17 13:29 Dose: Not Given Insulin Aspart (Novolog Vial Sliding Scale -) 1 vial SQ ACHS [facility] PRN Reason: Protocol Last Admin: 08/13/17 06:20 Dose: Not Given Insulin Detemir (Levemir Vial) 40 units SQ BID@0700,2200 [facility] Last Admin: 08/13/17 06:21 Dose: Not Given Lactulose (Cephulac (Oral Use)) 20 gm PO DAILY [facility] Last Admin: 08/12/17 10:46 Dose: 20 gm Levothyroxine Sodium (Synthroid -) 100 mcg PO DAILY@0700 [facility] Last Admin: 08/13/17 06:21 Dose: 100 mcg Metronidazole (Metrogel 0.75% Gel -) 1 applic TP BID [facility] Last Admin: 08/12/17 21:48 Dose: 1 applic Mupirocin (Bactroban 2% Ointment -) 1 applic TP DAILY [facility] Last Admin: 08/12/17 10:50 Dose: 1 applic Non-Formulary Medication (Linaclotide [Linzess]) 290 mcg PO DAILY [facility] Nystatin (Nystop Powder -) 1 applic TP DAILY [facility] Last Admin: 08/12/17 10:49 Dose: 1 applic Oxycodone HCl (Roxicodone -) 10 mg PO HS [facility] Last Admin: 08/12/17 21:34 Dose: Not Given Oxycodone HCl (Roxicodone -) 10 mg PO Q4H PRN PRN Reason: PAIN LEVEL 6-10 Last Admin: 08/13/17 03:51 Dose: 10 mg Tamsulosin HCl (Flomax -) 0.4 mg PO DAILY@0830 [facility] Last Admin: 08/12/17 08:13 Dose: 0.4 mg - Objective Vital Signs: Vital Signs Temperature 98.2 F 08/13/17 06:00 Pulse Rate 78 08/13/17 06:00 Respiratory Rate 20 08/13/17 06:00 Blood Pressure 106/43 08/13/17 06:00 O2 Sat by Pulse Oximetry (%) 95 08/13/17 08:15 Constitutional: Yes: No Distress, Calm Cardiovascular: Yes: Pulse Irregular Respiratory: Yes: CTA Bilaterally Gastrointestinal: Yes: Soft, Abdomen, Obese Edema: Yes Edema: LLE: 1+, RLE: 1+ Neurological: Yes: Alert, Oriented Labs: CBC, BMP 08/13/17 06:00 08/13/17 06:00 INR, PTT INR 1.96 (0.82-1.09) H 08/08/17 05:34 Laboratory Tests 08/08/17 08/10/17 08/11/17 07:35 06:35 05:30 WBC 6.0 Hgb 8.9 L Hct Plt Count 169 PTT (Actin FS) Sodium 140 Potassium 4.9 BUN 91 H Creatinine 2.6 H Random Glucose Calcium Random Vancomycin 24.472 08/12/17 08/12/17 08/12/17 06:25 06:25 06:35 WBC 6.3 Hgb 9.2 L Hct Plt Count 180 PTT (Actin FS) 54.4 H D Sodium 138 Potassium 4.8 BUN 86 H Creatinine 2.2 H Random Glucose Calcium Random Vancomycin 08/13/17 08/13/17 08/13/17 06:00 06:00 06:00 WBC 6.3 Hgb 8.9 L Hct 27.3 L Plt Count 190 PTT (Actin FS) 47.0 H Sodium 140 Potassium 4.4 BUN 81 H Creatinine 2.1 H Random Glucose 123 H D Calcium 8.1 L Random Vancomycin Assessment/Plan IMP: Acute on chronic RF, hyperK+, improved Permanent AF CAD s/p PCI Chronic diastolic CHF REC: 1. Has been on heparin gtts in setting of acute on chronic RF, can resume NOAC at adjusted dose in next 24 hours if GFR stable. 2. HyperK improved. D/C tele 3. Further Rx ARF as per PMD and Urology
[2017-08-13] MEDS: TAMSULOSIN HCL 0.4 MG CAP.ER.24H (FP) PO SCH (10:01)
[2017-08-13] MEDS: HEPARIN SOD,PORK IN 0.45% NACL 25,000 UNITS/500 ML INFUS.BAG IVPB SCH (10:01)
[2017-08-13] MEDS: LACTULOSE 20 GM/30 ML UDC (FOR ORAL USE ONLY) PO SCH (10:02)
[2017-08-13] MEDS: MUPIROCIN 2% TOPICAL OINTMENT 22 GM TUBE TP SCH (10:02)
[2017-08-13] MEDS: ASPIRIN 81 MG CHEWABLE TABLETS PO SCH (10:02)
[2017-08-13] MEDS: BISACODYL 5 MG TABLET.DR (FP) PO SCH (10:02)
[2017-08-13] MEDS: COLLAGENASE CLOSTRIDIUM HIST. 30 GRAMS TUBE TP SCH (10:03)
[2017-08-13] MEDS: metroNIDAZOLE 0.75% TOPICAL GEL 45 GM TUBE TP SCH ×2 (10:03→22:30)
[2017-08-13] MEDS: NYSTATIN POWDER 100,000 UNITS/GM - 15 GM TOPICAL POWDER TP SCH (10:03)
[2017-08-13] MEDS: ATENOLOL 50 MG TABLET (FP) PO SCH ×2 (10:03→21:32)
[2017-08-13] MEDS: HEPARIN NA (PORCINE) 5,000 UNITS/ML 1ML VIAL IVPUSH PRN ×2 (10:04→19:04)
--- NOTE | 2017-08-13 10:38 | PN ---
DATE OF VISIT: 08/13/2017 SUBJECTIVE: The patient felt some sort of pain in his legs, and a new x-rays was ordered. X-rays do not show any interval change from the previous x-rays. All of the pins appear to be intact. The x-ray of the ankle appears to be the same. OBJECTIVE: The pin sites are all clean and dry. The medial wound is healing. The anterior portion of the wound is healed. The posterior still has some gapping with some fibrinous material and some slight serous drainage. No surrounding erythema. The swelling of the calf has gone down markedly. He still has venostasis changes in his skin extending from the calf way down to his leg and no real palpable pulses. Distally, the extremity is warm, and he has good motion of his toes. PLAN: I had a long discussion with the patient with the medical doctor regarding the patient's condition and prognosis and further treatment. The x-rays, which we have been following, show that the ankle mortis is not anatomically restored but is close. The lateral malleolus is displaced and rotated but within the ballpark, so to speak, to the medial meniscus and in acceptable position. Ideally, the patient would require an open reduction internal fixation to obtain an anatomical reduction. However, due to the fact that the patient's wound is still draining and much increased risk of infection in a patient who is morbidly obese with horrendous peripheral vascular disease, venostasis changes, poor pulses, and multiple other medical conditions including morbid obesity, we have collectively agreed to treat the patient definitively in an external fixator. We are going to accept less than ideal anatomical reduction of the ankle, but it should heal in this position and give him a stable construct to walk on down the road. The patient realizes that he may need more surgery, i.e. ankle fusion, if this does not work, but that in and of itself would be with significant potential complications. The patient was told from the outset that marked open fracture has a high probability of nonunion, infection, loss of limb, and we will have to follow the patient closely to optimize his treatment. Currently, there is no need for antibiotics. We are just following the wound medially and let it heal and keep the pin sites clean and dry, and we will take serial x-rays. The patient does have a U bar attached to the external fixator behind his Achilles that keeps his heel off the bed so there is no evidence of any decubitus ulcer occurring as this ankle is free floating. The patient is encouraged to do straight leg raises in bed and can move his knee if possible, and we will follow him closely. CHERYL WHITING M.D. [id number]
--- NOTE | 2017-08-13 13:35 | PN ---
Progress Note, Physician History of Present Illness: Pt seen and examined at bedside. He is awake and alert. No great change overnight. - Current Medication List Current Medications: Active Medications Acetaminophen (Tylenol -) 650 mg PO HS [facility] Last Admin: 08/12/17 21:42 Dose: Not Given Aspirin (Asa -) 81 mg PO DAILY [facility] Last Admin: 08/13/17 10:02 Dose: 81 mg Atenolol (Tenormin -) 100 mg PO BID [facility] Last Admin: 08/13/17 10:03 Dose: 100 mg Atorvastatin Calcium (Lipitor -) 80 mg PO HS [facility] Last Admin: 08/12/17 21:48 Dose: 80 mg Bisacodyl (Dulcolax -) 10 mg PO DAILY [facility] Last Admin: 08/13/17 10:02 Dose: Not Given Collagenase (Santyl -) 1 applic TP DAILY [facility] Last Admin: 08/13/17 10:03 Dose: 1 applic Docusate Sodium (Colace -) 100 mg PO TID [facility] Last Admin: 08/13/17 06:24 Dose: Not Given Furosemide (Lasix -) 80 mg PO BIDLASIX [facility] Last Admin: 08/13/17 06:21 Dose: 80 mg Heparin Sodium (Porcine) (Heparin -) 5,000 unit IVPUSH PRN PRN PRN Reason: HEPARIN PROTOCOL Last Admin: 08/12/17 01:44 Dose: 5,000 unit Heparin Sodium (Porcine) (Heparin -) 1,000 unit IVPUSH PRN PRN PRN Reason: HEPARIN PROTOCOL Last Admin: 08/13/17 10:04 Dose: 1,000 unit HEPARIN SOD,PORK IN 0.45% NACL (Heparin-1/2ns 25,000 Units/500) 25,000 units in 500 mls @ 20 mls/hr IVPB TITR NEIL; 1,000 UNITS/HR PRN Reason: Protocol Last Admin: 08/13/17 10:01 Dose: 1,850 units/hr, 37 mls/hr Insulin Aspart (Novolog Vial Sliding Scale -) 1 vial SQ ACHS [facility] PRN Reason: Protocol Last Admin: 08/13/17 06:20 Dose: Not Given Insulin Detemir (Levemir Vial) 40 units SQ BID@0700,2200 [facility] Last Admin: 08/13/17 06:21 Dose: Not Given Lactulose (Cephulac (Oral Use)) 20 gm PO DAILY [facility] Last Admin: 08/13/17 10:02 Dose: Not Given Levothyroxine Sodium (Synthroid -) 100 mcg PO DAILY@0700 [facility] Last Admin: 08/13/17 06:21 Dose: 100 mcg Metronidazole (Metrogel 0.75% Gel -) 1 applic TP BID [facility] Last Admin: 08/13/17 10:03 Dose: 1 applic Mupirocin (Bactroban 2% Ointment -) 1 applic TP DAILY [facility] Last Admin: 08/13/17 10:02 Dose: 1 applic Non-Formulary Medication (Linaclotide [Linzess]) 290 mcg PO DAILY [facility] Nystatin (Nystop Powder -) 1 applic TP DAILY [facility] Last Admin: 08/13/17 10:03 Dose: 1 applic Oxycodone HCl (Roxicodone -) 10 mg PO HS [facility] Last Admin: 08/12/17 21:34 Dose: Not Given Tamsulosin HCl (Flomax -) 0.4 mg PO DAILY@0830 [facility] Last Admin: 08/13/17 10:01 Dose: 0.4 mg - Objective Vital Signs: Vital Signs Temperature 98.2 F 08/13/17 06:00 Pulse Rate 78 08/13/17 10:00 Respiratory Rate 22 08/13/17 10:00 Blood Pressure 142/74 08/13/17 10:00 O2 Sat by Pulse Oximetry (%) 95 08/13/17 08:15 Constitutional: Yes: Calm Eyes: Yes: Conjunctiva Clear HENT: Yes: Atraumatic Neck: Yes: Supple Cardiovascular: Yes: S1, S2 Respiratory: Yes: Other (on cpap) Gastrointestinal: Yes: Soft, Abdomen, Obese Musculoskeletal: Yes: Other (left leg external fixation) Edema: Yes Edema: LLE: 1+, RLE: 1+ Integumentary: Yes: Venous Stasis Changes Neurological: Yes: Oriented Psychiatric: Yes: Oriented Labs: CBC, BMP 08/13/17 06:00 08/13/17 06:00 INR, PTT INR 1.96 (0.82-1.09) H 08/08/17 05:34 Problem List - Problems (1) Acute renal insufficiency Code(s): N28.9 - DISORDER OF KIDNEY AND URETER, UNSPECIFIED (2) Atrial fibrillation Code(s): I48.91 - UNSPECIFIED ATRIAL FIBRILLATION Qualifiers: Atrial fibrillation type: chronic Qualified Code(s): I48.2 - Chronic atrial fibrillation (3) BPH (benign prostatic hyperplasia) Code(s): N40.0 - BENIGN PROSTATIC HYPERPLASIA WITHOUT LOWER URINRY TRACT SYMP (4) CHF (congestive heart failure) Code(s): I50.9 - HEART FAILURE, UNSPECIFIED Qualifiers: Heart failure type: unspecified Heart failure chronicity: acute on chronic Qualified Code(s): I50.9 - Heart failure, unspecified (5) Acute renal failure (ARF) Code(s): N17.9 - ACUTE KIDNEY FAILURE, UNSPECIFIED (6) CAD (coronary artery disease) Code(s): I25.10 - ATHSCL HEART DISEASE OF [place] CORONARY ARTERY W/O ANG PCTRS (7) CKD (chronic kidney disease) Code(s): N18.9 - CHRONIC KIDNEY DISEASE, UNSPECIFIED (8) Cellulitis Code(s): L03.90 - CELLULITIS, UNSPECIFIED Assessment/Plan Current Medications Generic Name Dose Route Start Last Admin Trade Name Naomy PRN Reason Stop Dose Admin Acetaminophen 650 mg 08/07/17 22:00 08/12/17 21:42 Tylenol - PO Not Given HS NEIL Aspirin 81 mg 08/11/17 10:00 08/13/17 10:02 Asa - PO 81 mg DAILY NEIL Administration Atenolol 100 mg 08/07/17 13:35 08/13/17 10:03 Tenormin - PO 100 mg BID NEIL Administration Atorvastatin Calcium 80 mg 08/07/17 22:00 08/12/17 21:48 Lipitor - PO 80 mg HS NEIL Administration Bisacodyl 10 mg 08/07/17 10:00 08/13/17 10:02 Dulcolax - PO Not Given DAILY [facility] Collagenase 1 applic 08/07/17 10:00 08/13/17 10:03 Santyl - TP 1 applic DAILY [facility]IL Administration Docusate Sodium 100 mg 08/07/17 13:45 08/13/17 06:24 Colace - PO Not Given TID NEIL Furosemide 80 mg 08/07/17 06:00 08/13/17 06:21 Lasix - PO 80 mg BIDLASIX [facility]IL Administration Heparin Sodium (Porcine) 5,000 unit 08/09/17 08:50 08/12/17 01:44 Heparin - IVPUSH 5,000 unit PRN PRN Administration HEPARIN PROTOCOL Heparin Sodium (Porcine) 1,000 unit 08/09/17 08:50 08/13/17 10:04 Heparin - IVPUSH 1,000 unit PRN PRN Administration HEPARIN PROTOCOL HEPARIN SOD,PORK IN 0.45% NACL 25,000 units in 500 mls @ 20 mls/hr 08/10/17 08 :45 08/13/17 10:01 Heparin-1/2ns 25,000 Units/500 IVPB 1,850 units/hr TITR NEIL 37 mls/hr Protocol Administration 1,000 UNITS/HR Insulin Aspart 1 vial 08/07/17 07:00 08/13/17 06:20 Novolog Vial Sliding Scale - SQ Not Given ACHS [facility] Protocol Insulin Detemir 40 units 08/07/17 07:00 08/13/17 06:21 Levemir Vial SQ Not Given BID@0700,2200 [facility] Lactulose 20 gm 08/10/17 14:15 08/13/17 10:02 Cephulac (Oral Use) PO Not Given DAILY [facility] Levothyroxine Sodium 100 mcg 08/07/17 07:00 08/13/17 06:21 Synthroid - PO 100 mcg DAILY@0700 [facility] Administration Metronidazole 1 applic 08/07/17 10:00 08/13/17 10:03 Metrogel 0.75% Gel - TP 1 applic BID [facility]IL Administration Mupirocin 1 applic 08/07/17 10:00 08/13/17 10:02 Bactroban 2% Ointment - TP 1 applic DAILY [facility] Administration Non-Formulary Medication 290 mcg 08/07/17 10:00 Linaclotide [Linzess] PO DAILY [facility] Nystatin 1 applic 08/11/17 10:00 08/13/17 10:03 Nystop Powder - TP 1 applic DAILY [facility] Administration Oxycodone HCl 10 mg 08/07/17 22:00 08/12/17 21:34 Roxicodone - PO Not Given HS NEIL Tamsulosin HCl 0.4 mg 08/07/17 11:45 08/13/17 10:01 Flomax - PO 0.4 mg DAILY@0830 [facility] Administration Impression 1. CKD 2. KRUNAL 3. volume overload 4. morbid obesity 5. CAD 6. cellulitis 7. s/p fall 8. a-fib 9. DM 10. hypothyroidism 11. HLD 12. CHF 13. s/p leg fracture 14. hyperkalemia 15. constipation Plan - renal function is stable - cont lasix at current dose - physical therapy per ortho - gu follow up for ferguson - would hold off jasmyne or arb as pt has had repeat episodes of hyperkalemia - renal diet
--- NOTE | 2017-08-13 15:03 | PN ---
Progress Note, Physician History of Present Illness: no issues patient stable - Current Medication List Current Medications: Active Medications Acetaminophen (Tylenol -) 650 mg PO HS [facility] Last Admin: 08/12/17 21:42 Dose: Not Given Aspirin (Asa -) 81 mg PO DAILY [facility] Last Admin: 08/13/17 10:02 Dose: 81 mg Atenolol (Tenormin -) 100 mg PO BID [facility] Last Admin: 08/13/17 10:03 Dose: 100 mg Atorvastatin Calcium (Lipitor -) 80 mg PO HS [facility] Last Admin: 08/12/17 21:48 Dose: 80 mg Bisacodyl (Dulcolax -) 10 mg PO DAILY [facility] Last Admin: 08/13/17 10:02 Dose: Not Given Collagenase (Santyl -) 1 applic TP DAILY [facility] Last Admin: 08/13/17 10:03 Dose: 1 applic Docusate Sodium (Colace -) 100 mg PO TID [facility] Last Admin: 08/13/17 06:24 Dose: Not Given Furosemide (Lasix -) 80 mg PO BIDLASIX [facility] Last Admin: 08/13/17 06:21 Dose: 80 mg Heparin Sodium (Porcine) (Heparin -) 5,000 unit IVPUSH PRN PRN PRN Reason: HEPARIN PROTOCOL Last Admin: 08/12/17 01:44 Dose: 5,000 unit Heparin Sodium (Porcine) (Heparin -) 1,000 unit IVPUSH PRN PRN PRN Reason: HEPARIN PROTOCOL Last Admin: 08/13/17 10:04 Dose: 1,000 unit HEPARIN SOD,PORK IN 0.45% NACL (Heparin-1/2ns 25,000 Units/500) 25,000 units in 500 mls @ 20 mls/hr IVPB TITR NEIL; 1,000 UNITS/HR PRN Reason: Protocol Last Admin: 08/13/17 10:01 Dose: 1,850 units/hr, 37 mls/hr Insulin Aspart (Novolog Vial Sliding Scale -) 1 vial SQ ACHS [facility] PRN Reason: Protocol Last Admin: 08/13/17 06:20 Dose: Not Given Insulin Detemir (Levemir Vial) 40 units SQ BID@0700,2200 [facility] Last Admin: 08/13/17 06:21 Dose: Not Given Lactulose (Cephulac (Oral Use)) 20 gm PO DAILY [facility] Last Admin: 08/13/17 10:02 Dose: Not Given Levothyroxine Sodium (Synthroid -) 100 mcg PO DAILY@0700 [facility] Last Admin: 08/13/17 06:21 Dose: 100 mcg Metronidazole (Metrogel 0.75% Gel -) 1 applic TP BID [facility] Last Admin: 08/13/17 10:03 Dose: 1 applic Mupirocin (Bactroban 2% Ointment -) 1 applic TP DAILY [facility] Last Admin: 08/13/17 10:02 Dose: 1 applic Non-Formulary Medication (Linaclotide [Linzess]) 290 mcg PO DAILY [facility] Nystatin (Nystop Powder -) 1 applic TP DAILY [facility] Last Admin: 08/13/17 10:03 Dose: 1 applic Oxycodone HCl (Roxicodone -) 10 mg PO HS [facility] Last Admin: 08/12/17 21:34 Dose: Not Given Tamsulosin HCl (Flomax -) 0.4 mg PO DAILY@0830 [facility] Last Admin: 08/13/17 10:01 Dose: 0.4 mg - Objective Vital Signs: Vital Signs Temperature 98.4 F 08/13/17 13:57 Pulse Rate 82 08/13/17 13:57 Respiratory Rate 24 08/13/17 13:57 Blood Pressure 104/63 08/13/17 13:57 O2 Sat by Pulse Oximetry (%) 95 08/13/17 08:15 Constitutional: Yes: No Distress, Calm Cardiovascular: Yes: Regular Rate and Rhythm Respiratory: Yes: Regular, On BiPap, On Nasal O2 Gastrointestinal: Yes: Normal Bowel Sounds, Soft Musculoskeletal: Yes: WNL Extremities: Yes: Other Neurological: Yes: Alert, Oriented Psychiatric: Yes: Alert, Oriented Labs: CBC, BMP 08/13/17 06:00 08/13/17 06:00 INR, PTT INR 1.96 (0.82-1.09) H 08/08/17 05:34 Assessment/Plan Problem List - Problems (1) Acute renal insufficiency Code(s): N28.9 - DISORDER OF KIDNEY AND URETER, UNSPECIFIED (2) Atrial fibrillation Code(s): I48.91 - UNSPECIFIED ATRIAL FIBRILLATION Qualifiers: Atrial fibrillation type: chronic Qualified Code(s): I48.2 - Chronic atrial fibrillation (3) BPH (benign prostatic hyperplasia) Code(s): N40.0 - BENIGN PROSTATIC HYPERPLASIA WITHOUT LOWER URINRY TRACT SYMP (4) CHF (congestive heart failure) Code(s): I50.9 - HEART FAILURE, UNSPECIFIED Qualifiers: Heart failure type: unspecified Heart failure chronicity: acute on chronic Qualified Code(s): I50.9 - Heart failure, unspecified (5) Acute renal failure (ARF) Code(s): N17.9 - ACUTE KIDNEY FAILURE, UNSPECIFIED (6) CAD (coronary artery disease) Code(s): I25.10 - ATHSCL HEART DISEASE OF [place] CORONARY ARTERY W/O ANG PCTRS (7) COPD (chronic obstructive pulmonary disease) Code(s): J44.9 - CHRONIC OBSTRUCTIVE PULMONARY DISEASE, UNSPECIFIED (8) Cellulitis of right leg Code(s): L03.115 - CELLULITIS OF RIGHT LOWER LIMB (9) Diabetes Code(s): E11.9 - TYPE 2 DIABETES MELLITUS WITHOUT COMPLICATIONS (10) Dyslipidemia Code(s): E78.5 - HYPERLIPIDEMIA, UNSPECIFIED (11) Obesities, morbid Code(s): E66.01 - MORBID (SEVERE) OBESITY DUE TO EXCESS CALORIES (12) Open left ankle fracture Code(s): S82.892B - OTH FRACTURE OF LEFT LOWER LEG, INIT FOR OPN FX TYPE I/2 Qualifiers: Encounter type: initial encounter (13) Sleep apnea Code(s): G47.30 - SLEEP APNEA, UNSPECIFIED (14) Venous (peripheral) insufficiency Code(s): I87.2 - VENOUS INSUFFICIENCY (CHRONIC) (PERIPHERAL) (15) Venous ulcer Code(s): I87.8 - OTHER SPECIFIED DISORDERS OF VEINS Assessment/Plan 61 y.o. male with PMH of DM, morbid obesity, CAD, CHF, AFIB, CKD, BPH, LLE compound fracture s/p external fixation with hardware in place, RLE cellulitis, LE infected ulcers receiving IV antibiotics in NH presenting with urinary retention, KRUNAL and generalized rash and elevated Vancomycin levels Hx of RLE cellulitis/LLE infected ulcers - appears to have improved Rash resolving KRUNAL on CKD Urinary retention plan continue to monitor care of the fracture resp support diet no abx further plan awaited
[2017-08-13] MEDS: oxyCODONE HCL 5 MG TABLET PO SCH (21:27)
[2017-08-13] MEDS: ATORVASTATIN CA 80 MG TABLET (FP) PO SCH (21:27)
[2017-08-13] MEDS: ACETAMINOPHEN 325 MG TABLET (FP) PO SCH (21:30)
[2017-08-14] MEDS: HEPARIN SOD,PORK IN 0.45% NACL 25,000 UNITS/500 ML INFUS.BAG IVPB SCH ×2 (04:58→19:06)
[2017-08-14] MEDS: LEVOTHYROXINE NA 100 MCG TABLET (FP) PO SCH (06:05)
[2017-08-14] MEDS: FUROSEMIDE 40 MG TABLET (FP) PO SCH ×2 (06:05→18:30)
[2017-08-14] MEDS: DOCUSATE SODIUM 100 MG CAPSULE (FP) PO SCH ×3 (06:05→22:13)
[2017-08-14] MEDS: INSULIN SLIDING SCALE (NOVOLOG) 1 VIAL SQ SCH ×4 (06:07→22:14)
[2017-08-14] MEDS: INSULIN (LEVEMIR) 100 UNITS/ML UNITS SQ SCH (06:50)
[2017-08-14] MEDS ORDERED: INSULIN (LEVEMIR) 100 UNITS/ML UNITS SQ ONE (06:52)
[2017-08-14] MEDS: oxyCODONE HCL 5 MG TABLET PO PRN ×2 (07:09→10:54)
[2017-08-14 08:44] LABS: HEMOGLOBIN 9.5 GM/dL (11.7-16.9); MCH 30.3 pg (25.7-33.7); MCHC 31.6 g/dl (32.0-35.9); MEAN CELL VOLUME 96.1 fl (80-96); PLATELET COUNT 209 K/MM3 (134-434); RBC 3.12 M/mm3 (4.00-5.60); RDW 17.6 % (11.9-15.9); WHITE BLOOD COUNT 6.1 K/mm3 (4.0-10.0)
[2017-08-14] MEDS: BISACODYL 5 MG TABLET.DR (FP) PO SCH (09:53)
[2017-08-14] MEDS: ATENOLOL 50 MG TABLET (FP) PO SCH ×2 (09:53→22:14)
[2017-08-14] MEDS: LACTULOSE 20 GM/30 ML UDC (FOR ORAL USE ONLY) PO SCH (09:53)
[2017-08-14] MEDS: TAMSULOSIN HCL 0.4 MG CAP.ER.24H (FP) PO SCH (09:53)
[2017-08-14] MEDS: ASPIRIN 81 MG CHEWABLE TABLETS PO SCH (09:53)
--- NOTE | 2017-08-14 11:34 | PN ---
Progress Note (short form) - Note Progress Note: RENAL Pt is awake and alert cmfortable asking for the ferguson to be reinserted but he makes urine and his creatinine is better Last Vital Signs Temp Pulse Resp BP Pulse Ox 97.9 F 78 20 110/68 95 08/14/17 06:00 08/14/17 10:00 08/14/17 10:00 08/14/17 10:00 08/14/17 09:00 heent short neck lungs clear cvs s1s2 rr abd soft ext -jvd CBC, BMP 08/14/17 08:30 08/13/17 06:00 Current Medications Generic Name Dose Route Start Last Admin Trade Name Freq PRN Reason Stop Dose Admin Acetaminophen 650 mg 08/07/17 22:00 08/13/17 21:30 Tylenol - PO 650 mg HS NEIL Administration Aspirin 81 mg 08/11/17 10:00 08/14/17 09:53 Asa - PO 81 mg DAILY NEIL Administration Atenolol 100 mg 08/07/17 13:35 08/14/17 09:53 Tenormin - PO 100 mg BID NEIL Administration Atorvastatin Calcium 80 mg 08/07/17 22:00 08/13/17 21:27 Lipitor - PO 80 mg HS NEIL Administration Bisacodyl 10 mg 08/07/17 10:00 08/14/17 09:53 Dulcolax - PO 10 mg DAILY NEIL Administration Collagenase 1 applic 08/07/17 10:00 08/13/17 10:03 Santyl - TP 1 applic DAILY NEIL Administration Docusate Sodium 100 mg 08/07/17 13:45 08/14/17 06:05 Colace - PO 100 mg TID NEIL Administration Furosemide 80 mg 08/07/17 06:00 08/14/17 06:05 Lasix - PO 80 mg BIDLASIX NEIL Administration Heparin Sodium (Porcine) 5,000 unit 08/09/17 08:50 08/12/17 01:44 Heparin - IVPUSH 5,000 unit PRN PRN Administration HEPARIN PROTOCOL Heparin Sodium (Porcine) 1,000 unit 08/09/17 08:50 08/13/17 19:04 Heparin - IVPUSH 1,000 unit PRN PRN Administration HEPARIN PROTOCOL HEPARIN SOD,PORK IN 0.45% NACL 25,000 units in 500 mls @ 20 mls/hr 08/10/17 08 :45 08/14/17 09:46 Heparin-1/2ns 25,000 Units/500 IVPB 1,950 units/hr TITR NEIL 39 mls/hr Protocol Titration 1,000 UNITS/HR Insulin Aspart 1 vial 08/07/17 07:00 08/14/17 06:07 Novolog Vial Sliding Scale - SQ Not Given ACHS [facility] Protocol Insulin Detemir 40 units 08/07/17 07:00 08/14/17 06:50 Levemir Vial SQ 40 units BID@0700,2200 NEIL Administration Lactulose 20 gm 08/10/17 14:15 08/14/17 09:53 Cephulac (Oral Use) PO 20 gm DAILY [facility]IL Administration Levothyroxine Sodium 100 mcg 08/07/17 07:00 08/14/17 06:05 Synthroid - PO 100 mcg DAILY@0700 NEIL Administration Metronidazole 1 applic 08/07/17 10:00 08/13/17 22:30 Metrogel 0.75% Gel - TP 1 applic BID NEIL Administration Mupirocin 1 applic 08/07/17 10:00 08/13/17 10:02 Bactroban 2% Ointment - TP 1 applic DAILY [facility] Administration Non-Formulary Medication 290 mcg 08/07/17 10:00 Linaclotide [Linzess] PO DAILY [facility] Nystatin 1 applic 08/11/17 10:00 08/13/17 10:03 Nystop Powder - TP 1 applic DAILY [facility] Administration Oxycodone HCl 10 mg 08/07/17 22:00 08/13/17 21:27 Roxicodone - PO 10 mg HS NEIL Administration Oxycodone HCl 10 mg 08/13/17 18:18 08/14/17 10:54 Roxicodone - PO 10 mg Q4H PRN Administration PAIN LEVEL 1-5 Tamsulosin HCl 0.4 mg 08/07/17 11:45 08/14/17 09:53 Flomax - PO 0.4 mg DAILY@0830 NEIL Administration Impression 1. CKD 2. KRUNAL 3. volume overload 4. morbid obesity 5. CAD 6. cellulitis 7. s/p fall 8. a-fib 9. DM 10. hypothyroidism 11. HLD 12. CHF 13. s/p leg fracture 14. hyperkalemia 15. constipation Plan - renal function is stable - cont lasix at current dose - physical therapy per ortho he is making urine and creatinine has dropped so would opt to keep off ferguson MV
--- NOTE | 2017-08-14 13:02 | PN ---
Physical Exam: SUBJECTIVE: Patient seen and examined. Pt reports back pain and sacral ulcer discomfort OBJECTIVE: Vital Signs Period Temp Pulse Resp BP Sys/Mehta Pulse Ox Last 24 Hr 97.6 F-98.4 F 75-82 20-24 91-120/51-72 95 Pe Neuro: alert, awake, cn 2-12intact Pulm: CTA anteriorly CV: s1s2 rrr Abd: obese abd, s nt nd +bs Ext: RLE cellulitis, drying, +1 edema, LLE ankle incision + sutures, external fixation in place Laboratory Results - last 24 hr 08/13/17 08/13/17 08/13/17 17:00 18:00 20:30 WBC RBC Hgb Hct MCV MCH MCHC RDW Plt Count MPV PTT (Actin FS) 47.9 H 58.8 H POC Glucometer 168 08/13/17 08/14/17 08/14/17 21:25 05:53 08:30 WBC 6.1 RBC 3.12 L Hgb 9.5 L Hct 30.0 L MCV 96.1 H MCH 30.3 MCHC 31.6 L RDW 17.6 H Plt Count 209 MPV 8.0 PTT (Actin FS) POC Glucometer 202 96 08/14/17 08:30 WBC RBC Hgb Hct MCV MCH MCHC RDW Plt Count MPV PTT (Actin FS) 70.3 H POC Glucometer Active Medications Generic Name Dose Route Start Last Admin Trade Name Freq PRN Reason Stop Dose Admin Acetaminophen 650 mg 08/07/17 22:00 08/13/17 21:30 Tylenol - PO 650 mg HS NEIL Administration Aspirin 81 mg 08/11/17 10:00 08/14/17 09:53 Asa - PO 81 mg DAILY [facility]IL Administration Atenolol 100 mg 08/07/17 13:35 08/14/17 09:53 Tenormin - PO 100 mg BID NEIL Administration Atorvastatin Calcium 80 mg 08/07/17 22:00 08/13/17 21:27 Lipitor - PO 80 mg HS NEIL Administration Bisacodyl 10 mg 08/07/17 10:00 08/14/17 09:53 Dulcolax - PO 10 mg DAILY [facility]IL Administration Collagenase 1 applic 08/07/17 10:00 08/13/17 10:03 Santyl - TP 1 applic DAILY [facility] Administration Docusate Sodium 100 mg 08/07/17 13:45 08/14/17 06:05 Colace - PO 100 mg TID NEIL Administration Furosemide 80 mg 08/07/17 06:00 08/14/17 06:05 Lasix - PO 80 mg BIDLASIX NEIL Administration Heparin Sodium (Porcine) 5,000 unit 08/09/17 08:50 08/12/17 01:44 Heparin - IVPUSH 5,000 unit PRN PRN Administration HEPARIN PROTOCOL Heparin Sodium (Porcine) 1,000 unit 08/09/17 08:50 08/13/17 19:04 Heparin - IVPUSH 1,000 unit PRN PRN Administration HEPARIN PROTOCOL HEPARIN SOD,PORK IN 0.45% NACL 25,000 units in 500 mls @ 20 mls/hr 08/10/17 08 :45 08/14/17 09:46 Heparin-1/2ns 25,000 Units/500 IVPB 1,950 units/hr TITR NEIL 39 mls/hr Protocol Titration 1,000 UNITS/HR Insulin Aspart 1 vial 08/07/17 07:00 08/14/17 06:07 Novolog Vial Sliding Scale - SQ Not Given ACHS [facility] Protocol Insulin Detemir 40 units 08/07/17 07:00 08/14/17 06:50 Levemir Vial SQ 40 units BID@0700,2200 NEIL Administration Lactulose 20 gm 08/10/17 14:15 08/14/17 09:53 Cephulac (Oral Use) PO 20 gm DAILY [facility]IL Administration Levothyroxine Sodium 100 mcg 08/07/17 07:00 08/14/17 06:05 Synthroid - PO 100 mcg DAILY@0700 NEIL Administration Metronidazole 1 applic 08/07/17 10:00 08/13/17 22:30 Metrogel 0.75% Gel - TP 1 applic BID [facility]IL Administration Mupirocin 1 applic 08/07/17 10:00 08/13/17 10:02 Bactroban 2% Ointment - TP 1 applic DAILY [facility] Administration Non-Formulary Medication 290 mcg 08/07/17 10:00 Linaclotide [Linzess] PO DAILY [facility] Nystatin 1 applic 08/11/17 10:00 08/13/17 10:03 Nystop Powder - TP 1 applic DAILY [facility] Administration Oxycodone HCl 10 mg 08/07/17 22:00 08/13/17 21:27 Roxicodone - PO 10 mg HS [facility]IL Administration Oxycodone HCl 10 mg 08/13/17 18:18 08/14/17 10:54 Roxicodone - PO 10 mg Q4H PRN Administration PAIN LEVEL 1-5 Tamsulosin HCl 0.4 mg 08/07/17 11:45 08/14/17 09:53 Flomax - PO 0.4 mg DAILY@0830 [facility]IL Administration Assessment: 61 year old man with a history of atrial fib, chronic diastolic heart failure, HTN, hyperlipidemia, hypothyroidism, gout, anemia, stage 3 CKD, type 2 DM, BPH admitted with acute RLE cellulitis, ARF, hospital course c/b open left ankle fx with subsequent external fixation. Plan: 1. KRUNAL on CKD - Cr and urine out improving - Renal following, do not insert ferguson 2. Urinary retention - Ferguson discontinued - Flomax - seeing 3. s/p fall, left ankle fx - Maintain external fixation - Wound looks good per ortho 4. Cellulitis, chronic wound RLE - Off abx 5. A fib - Heparin gtt - Atenolol 6. CAD s/p PCI - Atenolol, lipitor 7. CHF, diastolic - Lasix 80mg BID 8. HTN - Cont meds 9. DM II - Levemir, ISS, BGM 10. Hypothyroidism - Continue Synthroid 11. Morbid obesity with BMI 64.6 12. UTI - UA positive, will discuss with ID Visit type - Emergency Visit Emergency Visit: Yes ED Registration Date: 08/06/17 Care time: The patient presented to the Emergency Department on the above date and was hospitalized for further evaluation of their emergent condition. - New Patient This patient is new to me today: Yes Date on this admission: 08/14/17 - Critical Care Critical Care patient: No
--- NOTE | 2017-08-14 13:51 | PN ---
Progress Note, Physician History of Present Illness: patient stable no complaints no urinary complaints u/sa showing infection - Current Medication List Current Medications: Active Medications Acetaminophen (Tylenol -) 650 mg PO HS [facility] Last Admin: 08/13/17 21:30 Dose: 650 mg Aspirin (Asa -) 81 mg PO DAILY [facility] Last Admin: 08/14/17 09:53 Dose: 81 mg Atenolol (Tenormin -) 100 mg PO BID [facility] Last Admin: 08/14/17 09:53 Dose: 100 mg Atorvastatin Calcium (Lipitor -) 80 mg PO HS [facility] Last Admin: 08/13/17 21:27 Dose: 80 mg Bisacodyl (Dulcolax -) 10 mg PO DAILY [facility] Last Admin: 08/14/17 09:53 Dose: 10 mg Collagenase (Santyl -) 1 applic TP DAILY [facility] Last Admin: 08/13/17 10:03 Dose: 1 applic Docusate Sodium (Colace -) 100 mg PO TID [facility] Last Admin: 08/14/17 06:05 Dose: 100 mg Furosemide (Lasix -) 80 mg PO BIDLASIX [facility] Last Admin: 08/14/17 06:05 Dose: 80 mg Heparin Sodium (Porcine) (Heparin -) 5,000 unit IVPUSH PRN PRN PRN Reason: HEPARIN PROTOCOL Last Admin: 08/12/17 01:44 Dose: 5,000 unit Heparin Sodium (Porcine) (Heparin -) 1,000 unit IVPUSH PRN PRN PRN Reason: HEPARIN PROTOCOL Last Admin: 08/13/17 19:04 Dose: 1,000 unit HEPARIN SOD,PORK IN 0.45% NACL (Heparin-1/2ns 25,000 Units/500) 25,000 units in 500 mls @ 20 mls/hr IVPB TITR NEIL; 1,000 UNITS/HR PRN Reason: Protocol Last Titration: 08/14/17 09:46 Dose: 1,950 units/hr, 39 mls/hr Insulin Aspart (Novolog Vial Sliding Scale -) 1 vial SQ ACHS [facility] PRN Reason: Protocol Last Admin: 08/14/17 06:07 Dose: Not Given Insulin Detemir (Levemir Vial) 40 units SQ BID@0700,2200 [facility] Last Admin: 08/14/17 06:50 Dose: 40 units Lactulose (Cephulac (Oral Use)) 20 gm PO DAILY [facility] Last Admin: 08/14/17 09:53 Dose: 20 gm Levothyroxine Sodium (Synthroid -) 100 mcg PO DAILY@0700 [facility] Last Admin: 08/14/17 06:05 Dose: 100 mcg Metronidazole (Metrogel 0.75% Gel -) 1 applic TP BID [facility] Last Admin: 08/13/17 22:30 Dose: 1 applic Mupirocin (Bactroban 2% Ointment -) 1 applic TP DAILY [facility] Last Admin: 08/13/17 10:02 Dose: 1 applic Non-Formulary Medication (Linaclotide [Linzess]) 290 mcg PO DAILY [facility] Nystatin (Nystop Powder -) 1 applic TP DAILY [facility] Last Admin: 08/13/17 10:03 Dose: 1 applic Oxycodone HCl (Roxicodone -) 10 mg PO HS [facility] Last Admin: 08/13/17 21:27 Dose: 10 mg Oxycodone HCl (Roxicodone -) 10 mg PO Q4H PRN PRN Reason: PAIN LEVEL 1-5 Last Admin: 08/14/17 10:54 Dose: 10 mg Tamsulosin HCl (Flomax -) 0.4 mg PO DAILY@0830 [facility] Last Admin: 08/14/17 09:53 Dose: 0.4 mg - Objective Vital Signs: Vital Signs Temperature 97.9 F 08/14/17 06:00 Pulse Rate 78 08/14/17 10:00 Respiratory Rate 20 08/14/17 10:00 Blood Pressure 110/68 08/14/17 10:00 O2 Sat by Pulse Oximetry (%) 95 08/14/17 09:00 Constitutional: Yes: No Distress, Calm, Obese Cardiovascular: Yes: Regular Rate and Rhythm Respiratory: Yes: On BiPap, Poor Air Entry Gastrointestinal: Yes: Normal Bowel Sounds, Soft Musculoskeletal: Yes: WNL Extremities: Yes: Other (ext fixator) Neurological: Yes: Alert, Oriented Psychiatric: Yes: Alert, Oriented Labs: CBC, BMP 08/14/17 08:30 08/13/17 06:00 INR, PTT INR 1.96 (0.82-1.09) H 08/08/17 05:34 Assessment/Plan Problem List - Problems (1) Acute renal insufficiency Code(s): N28.9 - DISORDER OF KIDNEY AND URETER, UNSPECIFIED (2) Atrial fibrillation Code(s): I48.91 - UNSPECIFIED ATRIAL FIBRILLATION Qualifiers: Atrial fibrillation type: chronic Qualified Code(s): I48.2 - Chronic atrial fibrillation (3) BPH (benign prostatic hyperplasia) Code(s): N40.0 - BENIGN PROSTATIC HYPERPLASIA WITHOUT LOWER URINRY TRACT SYMP (4) CHF (congestive heart failure) Code(s): I50.9 - HEART FAILURE, UNSPECIFIED Qualifiers: Heart failure type: unspecified Heart failure chronicity: acute on chronic Qualified Code(s): I50.9 - Heart failure, unspecified (5) Acute renal failure (ARF) Code(s): N17.9 - ACUTE KIDNEY FAILURE, UNSPECIFIED (6) CAD (coronary artery disease) Code(s): I25.10 - ATHSCL HEART DISEASE OF [place] CORONARY ARTERY W/O ANG PCTRS (7) COPD (chronic obstructive pulmonary disease) Code(s): J44.9 - CHRONIC OBSTRUCTIVE PULMONARY DISEASE, UNSPECIFIED (8) Cellulitis of right leg Code(s): L03.115 - CELLULITIS OF RIGHT LOWER LIMB (9) Diabetes Code(s): E11.9 - TYPE 2 DIABETES MELLITUS WITHOUT COMPLICATIONS (10) Dyslipidemia Code(s): E78.5 - HYPERLIPIDEMIA, UNSPECIFIED (11) Obesities, morbid Code(s): E66.01 - MORBID (SEVERE) OBESITY DUE TO EXCESS CALORIES (12) Open left ankle fracture Code(s): S82.892B - OTH FRACTURE OF LEFT LOWER LEG, INIT FOR OPN FX TYPE I/2 Qualifiers: Encounter type: initial encounter (13) Sleep apnea Code(s): G47.30 - SLEEP APNEA, UNSPECIFIED (14) Venous (peripheral) insufficiency Code(s): I87.2 - VENOUS INSUFFICIENCY (CHRONIC) (PERIPHERAL) (15) Venous ulcer Code(s): I87.8 - OTHER SPECIFIED DISORDERS OF VEINS Assessment/Plan 61 y.o. male with PMH of DM, morbid obesity, CAD, CHF, AFIB, CKD, BPH, LLE compound fracture s/p external fixation with hardware in place, RLE cellulitis, LE infected ulcers receiving IV antibiotics in NH presenting with urinary retention, KRUNAL and generalized rash and elevated Vancomycin levels Hx of RLE cellulitis/LLE infected ulcers - appears to have improved Rash resolving KRUNAL on CKD Urinary retention patients urine has come back positive plan will start patient on oral abx await for cx reports rest continue current mgmt patient stable
[2017-08-14] MEDS: NYSTATIN POWDER 100,000 UNITS/GM - 15 GM TOPICAL POWDER TP SCH (14:01)
[2017-08-14] MEDS: MUPIROCIN 2% TOPICAL OINTMENT 22 GM TUBE TP SCH (14:01)
[2017-08-14] MEDS: metroNIDAZOLE 0.75% TOPICAL GEL 45 GM TUBE TP SCH ×2 (14:01→22:18)
--- NOTE | 2017-08-14 17:49 | PN ---
Progress Note, Physician Chief Complaint: Pt, with at bedside, c/o difficulty finding a comfortable position to sleep because of the leg "halo". History of Present Illness: 61 yo M with h/o HTN, DM, CAD,MICHAEL x 2, DVT, diastolic CHF, A fib with RvR, CKD stage 3, morbid obesity, LE ulcers, compound fracture of left ankle who p/w decreased urinary ouptut. Patient with 1-3 days of urinary retention/decreased urination, and acute development of facial, chest rash and erythema x 1 day. Also endorses worsening SOB, LE edema, Estrella/SOB, orthopnea. On Lasix 80 mg PO BID , and Xarelto 20 mg PO QD. - Current Medication List Current Medications: Active Medications Acetaminophen (Tylenol -) 650 mg PO HS [facility] Last Admin: 08/13/17 21:30 Dose: 650 mg Amoxicillin/Clavulanate Potassium (Augmentin - 875mg Tablet) 1 tab PO BID@0800, 1730 [facility] Aspirin (Asa -) 81 mg PO DAILY [facility] Last Admin: 08/14/17 09:53 Dose: 81 mg Atenolol (Tenormin -) 100 mg PO BID [facility] Last Admin: 08/14/17 09:53 Dose: 100 mg Atorvastatin Calcium (Lipitor -) 80 mg PO HS [facility] Last Admin: 08/13/17 21:27 Dose: 80 mg Bisacodyl (Dulcolax -) 10 mg PO DAILY [facility] Last Admin: 08/14/17 09:53 Dose: 10 mg Collagenase (Santyl -) 1 applic TP DAILY [facility] Last Admin: 08/13/17 10:03 Dose: 1 applic Docusate Sodium (Colace -) 100 mg PO TID [facility] Last Admin: 08/14/17 06:05 Dose: 100 mg Furosemide (Lasix -) 80 mg PO BIDLASIX [facility] Last Admin: 08/14/17 06:05 Dose: 80 mg Heparin Sodium (Porcine) (Heparin -) 5,000 unit IVPUSH PRN PRN PRN Reason: HEPARIN PROTOCOL Last Admin: 08/12/17 01:44 Dose: 5,000 unit Heparin Sodium (Porcine) (Heparin -) 1,000 unit IVPUSH PRN PRN PRN Reason: HEPARIN PROTOCOL Last Admin: 08/13/17 19:04 Dose: 1,000 unit HEPARIN SOD,PORK IN 0.45% NACL (Heparin-1/2ns 25,000 Units/500) 25,000 units in 500 mls @ 20 mls/hr IVPB TITR NEIL; 1,000 UNITS/HR PRN Reason: Protocol Last Titration: 08/14/17 09:46 Dose: 1,950 units/hr, 39 mls/hr Insulin Aspart (Novolog Vial Sliding Scale -) 1 vial SQ ACHS [facility] PRN Reason: Protocol Last Admin: 08/14/17 14:02 Dose: Not Given Insulin Detemir (Levemir Vial) 40 units SQ BID@0700,2200 [facility] Last Admin: 08/14/17 06:50 Dose: 40 units Lactulose (Cephulac (Oral Use)) 20 gm PO DAILY [facility] Last Admin: 08/14/17 09:53 Dose: 20 gm Levothyroxine Sodium (Synthroid -) 100 mcg PO DAILY@0700 [facility] Last Admin: 08/14/17 06:05 Dose: 100 mcg Metronidazole (Metrogel 0.75% Gel -) 1 applic TP BID [facility] Last Admin: 08/14/17 14:01 Dose: 1 applic Mupirocin (Bactroban 2% Ointment -) 1 applic TP DAILY [facility] Last Admin: 08/14/17 14:01 Dose: 1 applic Non-Formulary Medication (Linaclotide [Linzess]) 290 mcg PO DAILY [facility] Nystatin (Nystop Powder -) 1 applic TP DAILY [facility] Last Admin: 08/14/17 14:01 Dose: 1 applic Oxycodone HCl (Roxicodone -) 10 mg PO HS [facility] Last Admin: 08/13/17 21:27 Dose: 10 mg Oxycodone HCl (Roxicodone -) 10 mg PO Q4H PRN PRN Reason: PAIN LEVEL 1-5 Last Admin: 08/14/17 10:54 Dose: 10 mg Tamsulosin HCl (Flomax -) 0.4 mg PO DAILY@0830 [facility] Last Admin: 08/14/17 09:53 Dose: 0.4 mg - Objective Vital Signs: Vital Signs Temperature 97.9 F 08/14/17 06:00 Pulse Rate 78 08/14/17 10:00 Respiratory Rate 20 08/14/17 10:00 Blood Pressure 110/68 08/14/17 10:00 O2 Sat by Pulse Oximetry (%) 95 08/14/17 09:00 Constitutional: Yes: Obese Eyes: Yes: WNL HENT: Yes: WNL Neck: Yes: WNL Cardiovascular: Yes: Pulse Irregular, Murmur (2/4 diastolic murmur, RSB-->base) , S1 (varies in intensity), S2 Respiratory: Yes: WNL Gastrointestinal: Yes: Soft, Abdomen, Obese ...Rectal Exam: Yes: Deferred Genitourinary: No: Anuria Breast(s): Yes: Gynecomastia Musculoskeletal: Yes: Muscle Weakness Extremities: Yes: Cool Edema: Yes Edema: LLE: 1+, RLE: 1+ Peripheral Pulses WNL: Yes Integumentary: Yes: Venous Stasis Changes Wound/Incision: Yes: Open to air Neurological: Yes: WNL Labs: CBC, BMP 08/14/17 08:30 08/13/17 06:00 INR, PTT INR 1.96 (0.82-1.09) H 08/08/17 05:34 Abnormal Lab Results 08/15/17 08/15/17 06:00 06:00 RBC 3.14 L Hgb 9.5 L Hct 30.1 L MCHC 31.6 L RDW 17.5 H PTT (Actin FS) 60.7 H Problem List - Problems (1) Diastolic CHF Assessment/Plan: On atenolol. On furosemide. F/u BUN/Cr, electrolytes, Is and Os, daily weight. Code(s): I50.30 - UNSPECIFIED DIASTOLIC (CONGESTIVE) HEART FAILURE (2) Acute renal insufficiency Code(s): N28.9 - DISORDER OF KIDNEY AND URETER, UNSPECIFIED (3) Atrial fibrillation Assessment/Plan: On atenolol for HR control. On IV heparin until oral anticoagulant started. Code(s): I48.91 - UNSPECIFIED ATRIAL FIBRILLATION Qualifiers: Atrial fibrillation type: chronic Qualified Code(s): I48.2 - Chronic atrial fibrillation (4) BPH (benign prostatic hyperplasia) Code(s): N40.0 - BENIGN PROSTATIC HYPERPLASIA WITHOUT LOWER URINRY TRACT SYMP (5) Urinary (tract) obstruction Code(s): N13.9 - OBSTRUCTIVE AND REFLUX UROPATHY, UNSPECIFIED (6) CAD (coronary artery disease) Code(s): I25.10 - ATHSCL HEART DISEASE OF [place] CORONARY ARTERY W/O ANG PCTRS (7) Diabetes Code(s): E11.9 - TYPE 2 DIABETES MELLITUS WITHOUT COMPLICATIONS (8) Dyslipidemia Code(s): E78.5 - HYPERLIPIDEMIA, UNSPECIFIED (9) Hypothyroid Assessment/Plan: On synthroid. TSH 2.1. Code(s): E03.9 - HYPOTHYROIDISM, UNSPECIFIED (10) Obesities, morbid Code(s): E66.01 - MORBID (SEVERE) OBESITY DUE TO EXCESS CALORIES (11) Open left ankle fracture Code(s): S82.892B - OTH FRACTURE OF LEFT LOWER LEG, INIT FOR OPN FX TYPE I/2 Qualifiers: Encounter type: initial encounter (12) Pulmonary HTN Code(s): I27.20 - PULMONARY HYPERTENSION, UNSPECIFIED (13) Sleep apnea Code(s): G47.30 - SLEEP APNEA, UNSPECIFIED (14) Venous insufficiency Code(s): I87.2 - VENOUS INSUFFICIENCY (CHRONIC) (PERIPHERAL) (15) Gynecomastia Code(s): N62 - HYPERTROPHY OF BREAST
[2017-08-14] MEDS: AMOX TR/POT CLAV 875MG/125MG TABLETS (FP) PO SCH (18:30)
[2017-08-14] MEDS: COLLAGENASE CLOSTRIDIUM HIST. 30 GRAMS TUBE TP SCH (19:06)
[2017-08-14] MEDS ORDERED: INSULIN (NOVOLOG) ASPART 100 UNITS/ML 10ML VIAL ONE (22:06)
[2017-08-14] MEDS: ACETAMINOPHEN 325 MG TABLET (FP) PO SCH (22:13)
[2017-08-14] MEDS: ATORVASTATIN CA 80 MG TABLET (FP) PO SCH (22:14)
[2017-08-15] MEDS: INSULIN (LEVEMIR) 100 UNITS/ML UNITS SQ SCH ×3 (00:53→22:05)
[2017-08-15] MEDS: oxyCODONE HCL 5 MG TABLET PO PRN ×4 (01:10→19:54)
[2017-08-15] MEDS: FUROSEMIDE 40 MG TABLET (FP) PO SCH ×2 (06:01→13:38)
[2017-08-15] MEDS: DOCUSATE SODIUM 100 MG CAPSULE (FP) PO SCH ×3 (06:01→22:05)
[2017-08-15] MEDS: LEVOTHYROXINE NA 100 MCG TABLET (FP) PO SCH (06:02)
[2017-08-15] MEDS: INSULIN SLIDING SCALE (NOVOLOG) 1 VIAL SQ SCH ×4 (06:25→22:06)
[2017-08-15] MEDS ORDERED: INSULIN (NOVOLOG) ASPART 100 UNITS/ML 10ML VIAL ONE (07:05)
[2017-08-15 07:37] LABS: HEMATOCRIT 30.1 % (35.4-49); HEMOGLOBIN 9.5 GM/dL (11.7-16.9); MCH 30.3 pg (25.7-33.7); MCHC 31.6 g/dl (32.0-35.9); MEAN PLT VOLUME 8.1 fl (7.5-11.1); PLATELET COUNT 233 K/MM3 (134-434); RBC 3.14 M/mm3 (4.00-5.60); RDW 17.5 % (11.9-15.9)
[2017-08-15] MEDS: TAMSULOSIN HCL 0.4 MG CAP.ER.24H (FP) PO SCH (08:27)
[2017-08-15] MEDS: AMOX TR/POT CLAV 875MG/125MG TABLETS (FP) PO SCH ×2 (08:27→17:37)
[2017-08-15] MEDS ORDERED: ALBUTEROL SO4 2.5/IPRATROPIUM 0.5 INH SOL 3 ML VIAL.NEB. NEB ONE (08:50)
[2017-08-15] MEDS: ALBUTEROL SO4 2.5/IPRATROPIUM 0.5 INH SOL 3 ML VIAL.NEB. NEB PRN ×2 (09:35→16:17)
--- NOTE | 2017-08-15 11:05 | PN ---
Physical Exam: SUBJECTIVE: Patient seen and examined. NAD, no fever. Events: - Hypotensive this AM OBJECTIVE: Vital Signs Period Temp Pulse Resp BP Sys/Mehta Pulse Ox Last 24 Hr 97.6 F-98.6 F 69-77 20-20 90-118/49-68 95-96 Pe Neuro: alert, awake, cn 2-12intact Pulm: CTA anteriorly + cpap CV: s1 s2 rrr Abd: obese abd, s nt nd +bs Ext: RLE cellulitis, drying, +1 edema, LLE ankle incision + sutures, external fixation in place Laboratory Results - last 24 hr 08/15/17 08/15/17 08/15/17 05:47 06:00 06:00 WBC 8.0 D RBC 3.14 L Hgb 9.5 L Hct 30.1 L MCV 96.0 MCH 30.3 MCHC 31.6 L RDW 17.5 H Plt Count 233 MPV 8.1 PTT (Actin FS) 60.7 H POC Glucometer 138 Active Medications Generic Name Dose Route Start Last Admin Trade Name Freq PRN Reason Stop Dose Admin Acetaminophen 650 mg 08/07/17 22:00 08/14/17 22:13 Tylenol - PO 650 mg HS NEIL Administration Albuterol/Ipratropium 1 amp 08/15/17 09:36 Duoneb - NEB Q6H PRN SHORTNESS OF BREATH Amoxicillin/Clavulanate Potassium 1 tab 08/14/17 17:30 08/15/17 08:27 Augmentin - 875mg Tablet PO 1 tab BID@0800,1730 NEIL Administration Aspirin 81 mg 08/11/17 10:00 08/14/17 09:53 Asa - PO 81 mg DAILY NEIL Administration Atenolol 100 mg 08/07/17 13:35 08/14/17 22:14 Tenormin - PO 100 mg BID NEIL Administration Atorvastatin Calcium 80 mg 08/07/17 22:00 08/14/17 22:14 Lipitor - PO 80 mg HS NEIL Administration Bisacodyl 10 mg 08/07/17 10:00 08/14/17 09:53 Dulcolax - PO 10 mg DAILY NEIL Administration Collagenase 1 applic 08/07/17 10:00 08/14/17 19:06 Santyl - TP 1 applic DAILY NEIL Administration Docusate Sodium 100 mg 08/07/17 13:45 08/15/17 06:01 Colace - PO 100 mg TID NEIL Administration Furosemide 80 mg 08/07/17 06:00 08/15/17 06:01 Lasix - PO 80 mg BIDLASIX NEIL Administration Heparin Sodium (Porcine) 5,000 unit 08/09/17 08:50 08/12/17 01:44 Heparin - IVPUSH 5,000 unit PRN PRN Administration HEPARIN PROTOCOL Heparin Sodium (Porcine) 1,000 unit 08/09/17 08:50 08/13/17 19:04 Heparin - IVPUSH 1,000 unit PRN PRN Administration HEPARIN PROTOCOL HEPARIN SOD,PORK IN 0.45% NACL 25,000 units in 500 mls @ 20 mls/hr 08/10/17 08 :45 08/15/17 10:44 Heparin-1/2ns 25,000 Units/500 IVPB 1,950 units/hr TITR NEIL 39 mls/hr Protocol Titration 1,000 UNITS/HR Insulin Aspart 1 vial 08/07/17 07:00 08/15/17 06:25 Novolog Vial Sliding Scale - SQ Not Given ACHS NEIL Protocol Insulin Detemir 40 units 08/07/17 07:00 08/15/17 06:26 Levemir Vial SQ 40 units BID@0700,2200 NEIL Administration Lactulose 20 gm 08/10/17 14:15 08/14/17 09:53 Cephulac (Oral Use) PO 20 gm DAILY NEIL Administration Levothyroxine Sodium 100 mcg 08/07/17 07:00 08/15/17 06:02 Synthroid - PO 100 mcg DAILY@0700 NEIL Administration Metronidazole 1 applic 08/07/17 10:00 08/14/17 22:18 Metrogel 0.75% Gel - TP 1 applic BID NEIL Administration Mupirocin 1 applic 08/07/17 10:00 08/14/17 14:01 Bactroban 2% Ointment - TP 1 applic DAILY NEIL Administration Non-Formulary Medication 290 mcg 08/07/17 10:00 Linaclotide [Linzess] PO DAILY NEIL Nystatin 1 applic 08/11/17 10:00 08/14/17 14:01 Nystop Powder - TP 1 applic DAILY NEIL Administration Oxycodone HCl 10 mg 08/13/17 18:18 08/15/17 06:01 Roxicodone - PO 10 mg Q4H PRN Administration PAIN LEVEL 1-5 Tamsulosin HCl 0.4 mg 08/07/17 11:45 08/15/17 08:27 Flomax - PO 0.4 mg DAILY@0830 NEIL Administration Microbiology 08/12/17 06:00 Urine - Urine - Catheterized Urine Culture - Final Yeast Like Organism 08/06/17 22:00 Urine - Urine Ferguson Urine Culture - Final NO GROWTH OBTAINED Assessment: 61 year old man with a history of atrial fib, chronic diastolic heart failure, HTN, hyperlipidemia, hypothyroidism, gout, anemia, stage 3 CKD, type 2 DM, BPH admitted with acute RLE cellulitis, ARF, hospital course c/b open left ankle fx with subsequent external fixation. Plan: 1. KRUNAL on CKD - Cr and urine outpt improving - Renal following, do not insert ferguson 2. Urinary retention - Ferguson discontinued - Flomax - seeing 3. s/p fall, left ankle fx - Maintain external fixation - Wound looks good per ortho 4. Cellulitis, chronic wound RLE - Off abx 5. A fib - Heparin gtt - Atenolol 6. CAD s/p PCI - Atenolol, lipitor 7. CHF, diastolic - Lasix 80mg BID 8. HTN - Cont meds 9. DM II - Levemir, ISS, BGM 10. Hypothyroidism - Continue Synthroid 11. Morbid obesity with BMI 64.6 12. UTI - UA positive - Started on Augmentin BID - Await final cx Visit type - Emergency Visit Emergency Visit: Yes ED Registration Date: 08/06/17 Care time: The patient presented to the Emergency Department on the above date and was hospitalized for further evaluation of their emergent condition. - New Patient This patient is new to me today: No - Critical Care Critical Care patient: No
[2017-08-15] MEDS: ASPIRIN 81 MG CHEWABLE TABLETS PO SCH (11:22)
[2017-08-15] MEDS: LACTULOSE 20 GM/30 ML UDC (FOR ORAL USE ONLY) PO SCH (11:22)
[2017-08-15] MEDS: BISACODYL 5 MG TABLET.DR (FP) PO SCH (11:22)
[2017-08-15] MEDS: ATENOLOL 50 MG TABLET (FP) PO SCH ×2 (11:24→22:08)
--- NOTE | 2017-08-15 11:36 | PN ---
Progress Note, Physician History of Present Illness: no issues patient stable - Current Medication List Current Medications: Active Medications Acetaminophen (Tylenol -) 650 mg PO HS [facility] Last Admin: 08/14/17 22:13 Dose: 650 mg Albuterol/Ipratropium (Duoneb -) 1 amp NEB Q6H PRN PRN Reason: SHORTNESS OF BREATH Last Admin: 08/15/17 09:35 Dose: 1 amp Amoxicillin/Clavulanate Potassium (Augmentin - 875mg Tablet) 1 tab PO BID@0800, 1730 [facility] Last Admin: 08/15/17 08:27 Dose: 1 tab Aspirin (Asa -) 81 mg PO DAILY [facility] Last Admin: 08/15/17 11:22 Dose: 81 mg Atenolol (Tenormin -) 100 mg PO BID [facility] Last Admin: 08/15/17 11:24 Dose: 100 mg Atorvastatin Calcium (Lipitor -) 80 mg PO HS [facility] Last Admin: 08/14/17 22:14 Dose: 80 mg Bisacodyl (Dulcolax -) 10 mg PO DAILY [facility] Last Admin: 08/15/17 11:22 Dose: 10 mg Collagenase (Santyl -) 1 applic TP DAILY [facility] Last Admin: 08/14/17 19:06 Dose: 1 applic Docusate Sodium (Colace -) 100 mg PO TID [facility] Last Admin: 08/15/17 06:01 Dose: 100 mg Furosemide (Lasix -) 80 mg PO BIDLASIX [facility] Last Admin: 08/15/17 06:01 Dose: 80 mg Heparin Sodium (Porcine) (Heparin -) 5,000 unit IVPUSH PRN PRN PRN Reason: HEPARIN PROTOCOL Last Admin: 08/12/17 01:44 Dose: 5,000 unit Heparin Sodium (Porcine) (Heparin -) 1,000 unit IVPUSH PRN PRN PRN Reason: HEPARIN PROTOCOL Last Admin: 08/13/17 19:04 Dose: 1,000 unit HEPARIN SOD,PORK IN 0.45% NACL (Heparin-1/2ns 25,000 Units/500) 25,000 units in 500 mls @ 20 mls/hr IVPB TITR NEIL; 1,000 UNITS/HR PRN Reason: Protocol Last Titration: 08/15/17 10:44 Dose: 1,950 units/hr, 39 mls/hr Insulin Aspart (Novolog Vial Sliding Scale -) 1 vial SQ ACHS [facility] PRN Reason: Protocol Last Admin: 08/15/17 06:25 Dose: Not Given Insulin Detemir (Levemir Vial) 40 units SQ BID@0700,2200 [facility] Last Admin: 08/15/17 06:26 Dose: 40 units Lactulose (Cephulac (Oral Use)) 20 gm PO DAILY [facility] Last Admin: 08/15/17 11:22 Dose: 20 gm Levothyroxine Sodium (Synthroid -) 100 mcg PO DAILY@0700 [facility] Last Admin: 08/15/17 06:02 Dose: 100 mcg Metronidazole (Metrogel 0.75% Gel -) 1 applic TP BID [facility] Last Admin: 08/14/17 22:18 Dose: 1 applic Mupirocin (Bactroban 2% Ointment -) 1 applic TP DAILY [facility] Last Admin: 08/14/17 14:01 Dose: 1 applic Non-Formulary Medication (Linaclotide [Linzess]) 290 mcg PO DAILY [facility] Nystatin (Nystop Powder -) 1 applic TP DAILY [facility] Last Admin: 08/14/17 14:01 Dose: 1 applic Oxycodone HCl (Roxicodone -) 10 mg PO Q4H PRN PRN Reason: PAIN LEVEL 1-5 Last Admin: 08/15/17 11:22 Dose: 10 mg Tamsulosin HCl (Flomax -) 0.4 mg PO DAILY@0830 [facility] Last Admin: 08/15/17 08:27 Dose: 0.4 mg - Objective Vital Signs: Vital Signs Temperature 97.6 F 08/15/17 06:00 Pulse Rate 77 08/15/17 06:00 Respiratory Rate 20 08/14/17 22:00 Blood Pressure 90/49 08/15/17 06:00 O2 Sat by Pulse Oximetry (%) 96 08/15/17 02:30 Constitutional: Yes: No Distress, Calm, Obese Cardiovascular: Yes: Regular Rate and Rhythm Respiratory: Yes: Regular, CTA Bilaterally Gastrointestinal: Yes: Normal Bowel Sounds, Soft Musculoskeletal: Yes: WNL Extremities: Yes: Other Neurological: Yes: Alert, Oriented Psychiatric: Yes: Alert, Oriented Labs: CBC, BMP 08/15/17 06:00 08/13/17 06:00 INR, PTT INR 1.96 (0.82-1.09) H 08/08/17 05:34 Assessment/Plan Problem List - Problems (1) Acute renal insufficiency Code(s): N28.9 - DISORDER OF KIDNEY AND URETER, UNSPECIFIED (2) Atrial fibrillation Code(s): I48.91 - UNSPECIFIED ATRIAL FIBRILLATION Qualifiers: Atrial fibrillation type: chronic Qualified Code(s): I48.2 - Chronic atrial fibrillation (3) BPH (benign prostatic hyperplasia) Code(s): N40.0 - BENIGN PROSTATIC HYPERPLASIA WITHOUT LOWER URINRY TRACT SYMP (4) CHF (congestive heart failure) Code(s): I50.9 - HEART FAILURE, UNSPECIFIED Qualifiers: Heart failure type: unspecified Heart failure chronicity: acute on chronic Qualified Code(s): I50.9 - Heart failure, unspecified (5) Acute renal failure (ARF) Code(s): N17.9 - ACUTE KIDNEY FAILURE, UNSPECIFIED (6) CAD (coronary artery disease) Code(s): I25.10 - ATHSCL HEART DISEASE OF [place] CORONARY ARTERY W/O ANG PCTRS (7) COPD (chronic obstructive pulmonary disease) Code(s): J44.9 - CHRONIC OBSTRUCTIVE PULMONARY DISEASE, UNSPECIFIED (8) Cellulitis of right leg Code(s): L03.115 - CELLULITIS OF RIGHT LOWER LIMB (9) Diabetes Code(s): E11.9 - TYPE 2 DIABETES MELLITUS WITHOUT COMPLICATIONS (10) Dyslipidemia Code(s): E78.5 - HYPERLIPIDEMIA, UNSPECIFIED (11) Obesities, morbid Code(s): E66.01 - MORBID (SEVERE) OBESITY DUE TO EXCESS CALORIES (12) Open left ankle fracture Code(s): S82.892B - OTH FRACTURE OF LEFT LOWER LEG, INIT FOR OPN FX TYPE I/2 Qualifiers: Encounter type: initial encounter (13) Sleep apnea Code(s): G47.30 - SLEEP APNEA, UNSPECIFIED (14) Venous (peripheral) insufficiency Code(s): I87.2 - VENOUS INSUFFICIENCY (CHRONIC) (PERIPHERAL) (15) Venous ulcer Code(s): I87.8 - OTHER SPECIFIED DISORDERS OF VEINS Assessment/Plan 61 y.o. male with PMH of DM, morbid obesity, CAD, CHF, AFIB, CKD, BPH, LLE compound fracture s/p external fixation with hardware in place, RLE cellulitis, LE infected ulcers receiving IV antibiotics in [place] presenting with urinary retention, KRUNAL and generalized rash and elevated Vancomycin levels Hx of RLE cellulitis/LLE infected ulcers - appears to have improved Rash resolving KRUNAL on CKD Urinary retention plan continue to monitor care of the fracture resp support diet no abx further plan awaited in the room discussed with the
[2017-08-15] MEDS: MUPIROCIN 2% TOPICAL OINTMENT 22 GM TUBE TP SCH (13:47)
[2017-08-15] MEDS: COLLAGENASE CLOSTRIDIUM HIST. 30 GRAMS TUBE TP SCH (13:47)
[2017-08-15] MEDS: metroNIDAZOLE 0.75% TOPICAL GEL 45 GM TUBE TP SCH ×2 (13:47→22:09)
[2017-08-15] MEDS: NYSTATIN POWDER 100,000 UNITS/GM - 15 GM TOPICAL POWDER TP SCH (13:47)
[2017-08-15] MEDS ORDERED: BISACODYL 10 MG SUPP.RECT RC PRN (17:44)
[2017-08-15] MEDS ORDERED: MAGNESIUM HYDROX 2400MG/30ML ORAL SUSPENSION 30 ML CUP PO ONE (17:45)
[2017-08-15] MEDS: HEPARIN SOD,PORK IN 0.45% NACL 25,000 UNITS/500 ML INFUS.BAG IVPB SCH (17:56)
[2017-08-15] MEDS: ATORVASTATIN CA 80 MG TABLET (FP) PO SCH (22:05)
[2017-08-15] MEDS: ACETAMINOPHEN 325 MG TABLET (FP) PO SCH (22:09)
[2017-08-16] MEDS: oxyCODONE HCL 5 MG TABLET PO PRN ×4 (00:25→17:00)
[2017-08-16] MEDS: ALBUTEROL SO4 2.5/IPRATROPIUM 0.5 INH SOL 3 ML VIAL.NEB. NEB PRN ×4 (01:49→20:30)
--- NOTE | 2017-08-16 05:35 | PN ---
Progress Note, Physician Chief Complaint: Pt,denies chest pain or shortness of breath History of Present Illness: 61 yo white man with h/o HTN, DM, CAD,MICHAEL x 2, DVT, diastolic CHF, A fib with RvR, CKD stage 3, morbid obesity, LE ulcers, compound fracture of left ankle, RLE cellulitis, who p/w decreased urinary ouptut. Patient with 1-3 days of urinary retention/decreased urination, and acute development of facial, chest rash and erythema x 1 day. Also endorses worsening SOB, LE edema, Estrella/SOB, orthopnea. On Lasix 80 mg PO BID, and Xarelto 20 mg PO QD. - Current Medication List Current Medications: Active Medications Acetaminophen (Tylenol -) 650 mg PO HS [facility] Last Admin: 08/15/17 22:09 Dose: 650 mg Albuterol/Ipratropium (Duoneb -) 1 amp NEB Q6H PRN PRN Reason: SHORTNESS OF BREATH Last Admin: 08/16/17 01:49 Dose: 1 amp Amoxicillin/Clavulanate Potassium (Augmentin - 875mg Tablet) 1 tab PO BID@0800, 1730 [facility] Last Admin: 08/15/17 17:37 Dose: 1 tab Aspirin (Asa -) 81 mg PO DAILY [facility] Last Admin: 08/15/17 11:22 Dose: 81 mg Atenolol (Tenormin -) 100 mg PO BID [facility] Last Admin: 08/15/17 22:08 Dose: 100 mg Atorvastatin Calcium (Lipitor -) 80 mg PO HS [facility] Last Admin: 08/15/17 22:05 Dose: 80 mg Bisacodyl (Dulcolax -) 10 mg PO DAILY [facility] Last Admin: 08/15/17 11:22 Dose: 10 mg Bisacodyl (Dulcolax Suppository -) 10 mg RC PRN PRN PRN Reason: CONSTIPATION Collagenase (Santyl -) 1 applic TP DAILY [facility] Last Admin: 08/15/17 13:47 Dose: 1 applic Docusate Sodium (Colace -) 100 mg PO TID [facility] Last Admin: 08/15/17 22:05 Dose: 100 mg Furosemide (Lasix -) 80 mg PO BIDLASIX [facility] Last Admin: 08/15/17 13:38 Dose: Not Given Heparin Sodium (Porcine) (Heparin -) 5,000 unit IVPUSH PRN PRN PRN Reason: HEPARIN PROTOCOL Last Admin: 08/12/17 01:44 Dose: 5,000 unit Heparin Sodium (Porcine) (Heparin -) 1,000 unit IVPUSH PRN PRN PRN Reason: HEPARIN PROTOCOL Last Admin: 08/13/17 19:04 Dose: 1,000 unit HEPARIN SOD,PORK IN 0.45% NACL (Heparin-1/2ns 25,000 Units/500) 25,000 units in 500 mls @ 20 mls/hr IVPB TITR NEIL; 1,000 UNITS/HR PRN Reason: Protocol Last Admin: 08/15/17 17:56 Dose: 1,950 units/hr, 39 mls/hr Insulin Aspart (Novolog Vial Sliding Scale -) 1 vial SQ ACHS NEIL PRN Reason: Protocol Last Admin: 08/15/17 22:06 Dose: Not Given Insulin Detemir (Levemir Vial) 40 units SQ BID@0700,2200 [facility] Last Admin: 08/15/17 22:05 Dose: 40 units Lactulose (Cephulac (Oral Use)) 20 gm PO DAILY [facility] Last Admin: 08/15/17 11:22 Dose: 20 gm Levothyroxine Sodium (Synthroid -) 100 mcg PO DAILY@0700 [facility] Last Admin: 08/15/17 06:02 Dose: 100 mcg Metronidazole (Metrogel 0.75% Gel -) 1 applic TP BID [facility] Last Admin: 08/15/17 22:09 Dose: 1 applic Mupirocin (Bactroban 2% Ointment -) 1 applic TP DAILY [facility] Last Admin: 08/15/17 13:47 Dose: 1 applic Nystatin (Nystop Powder -) 1 applic TP DAILY [facility] Last Admin: 08/15/17 13:47 Dose: 1 applic Oxycodone HCl (Roxicodone -) 10 mg PO Q4H PRN PRN Reason: PAIN LEVEL 1-5 Last Admin: 08/16/17 00:25 Dose: 10 mg Tamsulosin HCl (Flomax -) 0.4 mg PO DAILY@0830 [facility] Last Admin: 08/15/17 08:27 Dose: 0.4 mg - Objective Vital Signs: Vital Signs Temperature 97.9 F 08/15/17 22:00 Pulse Rate 72 08/15/17 22:00 Respiratory Rate 20 08/15/17 22:00 Blood Pressure 112/65 08/15/17 22:00 O2 Sat by Pulse Oximetry (%) 95 08/15/17 09:00 Constitutional: Yes: Anxious Eyes: Yes: WNL HENT: Yes: WNL Neck: Yes: WNL Cardiovascular: Yes: Pulse Irregular, S1 (varies in intensity), S2 Respiratory: Yes: Regular Gastrointestinal: Yes: Soft, Abdomen, Obese ...Rectal Exam: Yes: Deferred Genitourinary: No: Anuria Breast(s): Yes: Gynecomastia Musculoskeletal: Yes: Back Pain, Joint Stiffness, Joint Swelling, Muscle Pain, Muscle Weakness Extremities: Yes: Cool Edema: Yes Edema: LLE: 1+, RLE: 1+ Peripheral Pulses WNL: No Peripheral Pulses: Left Doralis Pedis: 1+, Right Dorsalis Pedis: 1+ Integumentary: Yes: Erythema Wound/Incision: Yes: Dressing Dry and Intact Neurological: Yes: Alert, Oriented, Weakness Psychiatric: Yes: Other (anxiety; anger) Labs: CBC, BMP 08/15/17 06:00 08/13/17 06:00 INR, PTT INR 1.96 (0.82-1.09) H 08/08/17 05:34 Problem List - Problems (1) Diastolic CHF Assessment/Plan: On atenolol. On furosemide. F/u BUN/Cr, electrolytes, Is and Os, daily weight (?7 lb wt loss as of 08/13/17) . Code(s): I50.30 - UNSPECIFIED DIASTOLIC (CONGESTIVE) HEART FAILURE (2) Acute renal insufficiency Code(s): N28.9 - DISORDER OF KIDNEY AND URETER, UNSPECIFIED (3) Atrial fibrillation Assessment/Plan: On atenolol for HR control. On IV heparin until oral anticoagulant started. Code(s): I48.91 - UNSPECIFIED ATRIAL FIBRILLATION Qualifiers: Atrial fibrillation type: chronic Qualified Code(s): I48.2 - Chronic atrial fibrillation (4) BPH (benign prostatic hyperplasia) Code(s): N40.0 - BENIGN PROSTATIC HYPERPLASIA WITHOUT LOWER URINRY TRACT SYMP (5) Urinary (tract) obstruction Assessment/Plan: on antibiotics; f/u cultures. Code(s): N13.9 - OBSTRUCTIVE AND REFLUX UROPATHY, UNSPECIFIED (6) CAD (coronary artery disease) Code(s): I25.10 - ATHSCL HEART DISEASE OF [place] CORONARY ARTERY W/O ANG PCTRS (7) Diabetes Code(s): E11.9 - TYPE 2 DIABETES MELLITUS WITHOUT COMPLICATIONS (8) Dyslipidemia Code(s): E78.5 - HYPERLIPIDEMIA, UNSPECIFIED (9) Hypothyroid Assessment/Plan: On synthroid. TSH 2.1. Code(s): E03.9 - HYPOTHYROIDISM, UNSPECIFIED (10) Obesities, morbid Assessment/Plan: central to pt's health is need to address this issue. Insight appears poor. Code(s): E66.01 - MORBID (SEVERE) OBESITY DUE TO EXCESS CALORIES (11) Open left ankle fracture Assessment/Plan: s/p repair; ability to position himself, already compromised by obesity, now more difficult with LLE apparatus post-ankle surgery. Code(s): S82.892B - OTH FRACTURE OF LEFT LOWER LEG, INIT FOR OPN FX TYPE I/2 Qualifiers: Encounter type: initial encounter (12) Pulmonary HTN Assessment/Plan: normal LVEF by ECHO, with mildl RV dilatation (normal RVEF), with moderate pulmonary HTN. Code(s): I27.20 - PULMONARY HYPERTENSION, UNSPECIFIED (13) Sleep apnea Code(s): G47.30 - SLEEP APNEA, UNSPECIFIED (14) Venous insufficiency Code(s): I87.2 - VENOUS INSUFFICIENCY (CHRONIC) (PERIPHERAL) (15) Gynecomastia Code(s): N62 - HYPERTROPHY OF BREAST
[2017-08-16] MEDS: DOCUSATE SODIUM 100 MG CAPSULE (FP) PO SCH ×3 (06:07→21:35)
[2017-08-16] MEDS: FUROSEMIDE 40 MG TABLET (FP) PO SCH ×2 (06:07→14:14)
[2017-08-16] MEDS: INSULIN (LEVEMIR) 100 UNITS/ML UNITS SQ SCH ×2 (06:07→21:31)
[2017-08-16] MEDS: INSULIN SLIDING SCALE (NOVOLOG) 1 VIAL SQ SCH ×4 (06:07→21:30)
[2017-08-16] MEDS: LEVOTHYROXINE NA 100 MCG TABLET (FP) PO SCH (07:00)
[2017-08-16] MEDS: AMOX TR/POT CLAV 875MG/125MG TABLETS (FP) PO SCH (08:52)
[2017-08-16 09:06] LABS: CHLORIDE 104 mmol/L (98-107); POTASSIUM 4.8 mmol/L (3.5-5.1); SODIUM 138 mmol/L (136-145)
[2017-08-16 09:16] LABS: ANION GAP 7 (8-16); BLOOD UREA NITROGEN 84 mg/dL (7-18); CALCIUM 8.2 mg/dL (8.5-10.1); CO2 27 mmol/L (21-32); CREATININE 2.2 mg/dL (0.7-1.3); GLUCOSE,RANDOM 99 mg/dL (74-106)
[2017-08-16] MEDS ORDERED: HEPARIN NA (PORCINE) 5,000 UNITS/ML 1ML VIAL IVPUSH PRN ×2 (09:36)
[2017-08-16] MEDS: TAMSULOSIN HCL 0.4 MG CAP.ER.24H (FP) PO SCH (09:51)
[2017-08-16] MEDS: ASPIRIN 81 MG CHEWABLE TABLETS PO SCH (09:51)
[2017-08-16] MEDS: HEPARIN SOD,PORK IN 0.45% NACL 25,000 UNITS/500 ML INFUS.BAG IVPB SCH (09:52)
[2017-08-16] MEDS: LACTULOSE 20 GM/30 ML UDC (FOR ORAL USE ONLY) PO SCH ×3 (09:52→21:32)
[2017-08-16] MEDS: BISACODYL 5 MG TABLET.DR (FP) PO SCH ×2 (09:52→10:04)
[2017-08-16] MEDS: ATENOLOL 50 MG TABLET (FP) PO SCH ×2 (09:53→21:29)
[2017-08-16] MEDS: MUPIROCIN 2% TOPICAL OINTMENT 22 GM TUBE TP SCH (09:54)
[2017-08-16] MEDS: NYSTATIN POWDER 100,000 UNITS/GM - 15 GM TOPICAL POWDER TP SCH (09:54)
[2017-08-16] MEDS: COLLAGENASE CLOSTRIDIUM HIST. 30 GRAMS TUBE TP SCH (09:55)
[2017-08-16] MEDS: metroNIDAZOLE 0.75% TOPICAL GEL 45 GM TUBE TP SCH ×2 (09:56→22:15)
--- NOTE | 2017-08-16 14:46 | PN ---
Progress Note, Physician History of Present Illness: Pt seen and examined at bedside. He is awake and alert. He denies shortness of breath. - Current Medication List Current Medications: Active Medications Acetaminophen (Tylenol -) 650 mg PO HS [facility] Last Admin: 08/15/17 22:09 Dose: 650 mg Albuterol/Ipratropium (Duoneb -) 1 amp NEB Q6H PRN PRN Reason: SHORTNESS OF BREATH Last Admin: 08/16/17 14:23 Dose: 1 amp Amoxicillin/Clavulanate Potassium (Augmentin - 875mg Tablet) 1 tab PO BID@0800, 1730 [facility] Last Admin: 08/16/17 08:52 Dose: 1 tab Aspirin (Asa -) 81 mg PO DAILY [facility] Last Admin: 08/16/17 09:51 Dose: 81 mg Atenolol (Tenormin -) 100 mg PO BID [facility] Last Admin: 08/16/17 09:53 Dose: 100 mg Atorvastatin Calcium (Lipitor -) 80 mg PO HS [facility] Last Admin: 08/15/17 22:05 Dose: 80 mg Bisacodyl (Dulcolax -) 10 mg PO DAILY [facility] Last Admin: 08/16/17 10:04 Dose: Not Given Bisacodyl (Dulcolax Suppository -) 10 mg RC PRN PRN PRN Reason: CONSTIPATION Collagenase (Santyl -) 1 applic TP DAILY [facility] Last Admin: 08/16/17 09:55 Dose: 1 applic Docusate Sodium (Colace -) 100 mg PO TID [facility] Last Admin: 08/16/17 06:07 Dose: 100 mg Furosemide (Lasix -) 80 mg PO BIDLASIX [facility] Last Admin: 08/16/17 06:07 Dose: 80 mg Heparin Sodium (Porcine) (Heparin -) 5,000 unit IVPUSH PRN PRN PRN Reason: HEPARIN PROTOCOL Stop: 08/17/17 08:49 Last Admin: 08/16/17 09:51 Dose: 5,000 unit Heparin Sodium (Porcine) (Heparin -) 1,000 unit IVPUSH PRN PRN PRN Reason: HEPARIN PROTOCOL Stop: 08/17/17 08:49 HEPARIN SOD,PORK IN 0.45% NACL (Heparin-1/2ns 25,000 Units/500) 25,000 units in 500 mls @ 20 mls/hr IVPB TITR NEIL; 1,000 UNITS/HR PRN Reason: Protocol Last Admin: 08/16/17 09:52 Dose: 2,100 units/hr, 42 mls/hr Insulin Aspart (Novolog Vial Sliding Scale -) 1 vial SQ ACHS [facility] PRN Reason: Protocol Last Admin: 08/16/17 11:03 Dose: Not Given Insulin Detemir (Levemir Vial) 40 units SQ BID@0700,2200 [facility] Last Admin: 08/16/17 06:07 Dose: 40 units Lactulose (Cephulac (Oral Use)) 20 gm PO DAILY [facility] Last Admin: 08/16/17 10:03 Dose: Not Given Levothyroxine Sodium (Synthroid -) 100 mcg PO DAILY@0700 [facility] Last Admin: 08/16/17 07:00 Dose: Not Given Metronidazole (Metrogel 0.75% Gel -) 1 applic TP BID [facility] Last Admin: 08/16/17 09:56 Dose: 1 applic Mupirocin (Bactroban 2% Ointment -) 1 applic TP DAILY [facility] Last Admin: 08/16/17 09:54 Dose: 1 applic Nystatin (Nystop Powder -) 1 applic TP DAILY [facility] Last Admin: 08/16/17 09:54 Dose: 1 applic Oxycodone HCl (Roxicodone -) 10 mg PO Q4H PRN PRN Reason: PAIN LEVEL 1-5 Last Admin: 08/16/17 11:56 Dose: 10 mg Tamsulosin HCl (Flomax -) 0.4 mg PO DAILY@0830 [facility] Last Admin: 08/16/17 09:51 Dose: 0.4 mg - Objective Vital Signs: Vital Signs Temperature 98.4 F 08/16/17 10:00 Pulse Rate 75 08/16/17 10:00 Respiratory Rate 22 08/16/17 09:00 Blood Pressure 101/61 08/16/17 10:00 O2 Sat by Pulse Oximetry (%) 95 08/16/17 06:16 Constitutional: Yes: Calm Eyes: Yes: Conjunctiva Clear HENT: Yes: Atraumatic Neck: Yes: Supple Cardiovascular: Yes: S1, S2 Respiratory: Yes: CTA Bilaterally, On Nasal O2 Gastrointestinal: Yes: Normal Bowel Sounds, Soft, Abdomen, Obese Genitourinary: Yes: WNL Musculoskeletal: Yes: Other (external fixation of fracture) Edema: Yes Edema: LLE: 2+, RLE: 2+ Integumentary: Yes: Venous Stasis Changes Neurological: Yes: Oriented Psychiatric: Yes: Oriented Labs: CBC, BMP 08/15/17 06:00 08/16/17 07:45 INR, PTT INR 1.96 (0.82-1.09) H 08/08/17 05:34 Problem List - Problems (1) Acute renal insufficiency Code(s): N28.9 - DISORDER OF KIDNEY AND URETER, UNSPECIFIED (2) Atrial fibrillation Code(s): I48.91 - UNSPECIFIED ATRIAL FIBRILLATION Qualifiers: Atrial fibrillation type: chronic Qualified Code(s): I48.2 - Chronic atrial fibrillation (3) BPH (benign prostatic hyperplasia) Code(s): N40.0 - BENIGN PROSTATIC HYPERPLASIA WITHOUT LOWER URINRY TRACT SYMP (4) CHF (congestive heart failure) Code(s): I50.9 - HEART FAILURE, UNSPECIFIED Qualifiers: Heart failure type: unspecified Heart failure chronicity: acute on chronic Qualified Code(s): I50.9 - Heart failure, unspecified (5) Acute renal failure (ARF) Code(s): N17.9 - ACUTE KIDNEY FAILURE, UNSPECIFIED (6) CAD (coronary artery disease) Code(s): I25.10 - ATHSCL HEART DISEASE OF [place] CORONARY ARTERY W/O ANG PCTRS (7) CKD (chronic kidney disease) Code(s): N18.9 - CHRONIC KIDNEY DISEASE, UNSPECIFIED (8) Cellulitis Code(s): L03.90 - CELLULITIS, UNSPECIFIED Assessment/Plan Current Medications Generic Name Dose Route Start Last Admin Trade Name Mackq PRN Reason Stop Dose Admin Acetaminophen 650 mg 08/07/17 22:00 08/15/17 22:09 Tylenol - PO 650 mg HS NEIL Administration Albuterol/Ipratropium 1 amp 08/15/17 09:36 08/16/17 14:23 Duoneb - NEB 1 amp Q6H PRN Administration SHORTNESS OF BREATH Amoxicillin/Clavulanate Potassium 1 tab 08/14/17 17:30 08/16/17 08:52 Augmentin - 875mg Tablet PO 1 tab BID@0800,1730 NEIL Administration Aspirin 81 mg 08/11/17 10:00 08/16/17 09:51 Asa - PO 81 mg DAILY NEIL Administration Atenolol 100 mg 08/07/17 13:35 08/16/17 09:53 Tenormin - PO 100 mg BID NEIL Administration Atorvastatin Calcium 80 mg 08/07/17 22:00 08/15/17 22:05 Lipitor - PO 80 mg HS NEIL Administration Bisacodyl 10 mg 08/07/17 10:00 08/16/17 10:04 Dulcolax - PO Not Given DAILY NEIL Bisacodyl 10 mg 08/15/17 17:44 Dulcolax Suppository - RC PRN PRN CONSTIPATION Collagenase 1 applic 08/07/17 10:00 08/16/17 09:55 Santyl - TP 1 applic DAILY NEIL Administration Docusate Sodium 100 mg 08/07/17 13:45 08/16/17 06:07 Colace - PO 100 mg TID NEIL Administration Furosemide 80 mg 08/07/17 06:00 08/16/17 06:07 Lasix - PO 80 mg BIDLASIX NEIL Administration Heparin Sodium (Porcine) 5,000 unit 08/16/17 09:36 08/16/17 09:51 Heparin - IVPUSH 08/17/17 08:49 5,000 unit PRN PRN Administration HEPARIN PROTOCOL Heparin Sodium (Porcine) 1,000 unit 08/16/17 09:36 Heparin - IVPUSH 08/17/17 08:49 PRN PRN HEPARIN PROTOCOL HEPARIN SOD,PORK IN 0.45% NACL 25,000 units in 500 mls @ 20 mls/hr 08/10/17 08 :45 08/16/17 09:52 Heparin-1/2ns 25,000 Units/500 IVPB 2,100 units/hr TITR ENIL 42 mls/hr Protocol Administration 1,000 UNITS/HR Insulin Aspart 1 vial 08/07/17 07:00 08/16/17 11:03 Novolog Vial Sliding Scale - SQ Not Given ACHS [facility] Protocol Insulin Detemir 40 units 08/07/17 07:00 08/16/17 06:07 Levemir Vial SQ 40 units BID@0700,2200 NEIL Administration Lactulose 20 gm 08/10/17 14:15 08/16/17 10:03 Cephulac (Oral Use) PO Not Given DAILY [facility] Levothyroxine Sodium 100 mcg 08/07/17 07:00 08/16/17 07:00 Synthroid - PO Not Given DAILY@0700 NEIL Metronidazole 1 applic 08/07/17 10:00 08/16/17 09:56 Metrogel 0.75% Gel - TP 1 applic BID NEIL Administration Mupirocin 1 applic 08/07/17 10:00 08/16/17 09:54 Bactroban 2% Ointment - TP 1 applic DAILY NEIL Administration Nystatin 1 applic 08/11/17 10:00 08/16/17 09:54 Nystop Powder - TP 1 applic DAILY NEIL Administration Oxycodone HCl 10 mg 08/13/17 18:18 08/16/17 11:56 Roxicodone - PO 10 mg Q4H PRN Administration PAIN LEVEL 1-5 Tamsulosin HCl 0.4 mg 08/07/17 11:45 08/16/17 09:51 Flomax - PO 0.4 mg DAILY@0830 NEIL Administration Impression 1. CKD 2. KRUNAL 3. volume overload 4. morbid obesity 5. CAD 6. cellulitis 7. s/p fall 8. a-fib 9. DM 10. hypothyroidism 11. HLD 12. CHF 13. s/p leg fracture 14. hyperkalemia 15. constipation Plan - cont lasix - monitor renal function - physical therapy per ortho - will hold off jasmyne as he has had hyperkalemia on multiple occasions - renal diet
--- NOTE | 2017-08-16 15:26 | PN ---
Progress Note, Physician History of Present Illness: doing well no complaints back pain and sacral pain because of position otherwise doing well - Current Medication List Current Medications: Active Medications Acetaminophen (Tylenol -) 650 mg PO HS [facility] Last Admin: 08/15/17 22:09 Dose: 650 mg Albuterol/Ipratropium (Duoneb -) 1 amp NEB Q6H PRN PRN Reason: SHORTNESS OF BREATH Last Admin: 08/16/17 14:23 Dose: 1 amp Amoxicillin/Clavulanate Potassium (Augmentin - 875mg Tablet) 1 tab PO BID@0800, 1730 [facility] Last Admin: 08/16/17 08:52 Dose: 1 tab Aspirin (Asa -) 81 mg PO DAILY [facility] Last Admin: 08/16/17 09:51 Dose: 81 mg Atenolol (Tenormin -) 100 mg PO BID [facility] Last Admin: 08/16/17 09:53 Dose: 100 mg Atorvastatin Calcium (Lipitor -) 80 mg PO HS [facility] Last Admin: 08/15/17 22:05 Dose: 80 mg Bisacodyl (Dulcolax -) 10 mg PO DAILY [facility] Last Admin: 08/16/17 10:04 Dose: Not Given Bisacodyl (Dulcolax Suppository -) 10 mg RC PRN PRN PRN Reason: CONSTIPATION Collagenase (Santyl -) 1 applic TP DAILY [facility] Last Admin: 08/16/17 09:55 Dose: 1 applic Docusate Sodium (Colace -) 100 mg PO TID [facility] Last Admin: 08/16/17 14:15 Dose: 100 mg Furosemide (Lasix -) 80 mg PO BIDLASIX [facility] Last Admin: 08/16/17 14:14 Dose: 80 mg Heparin Sodium (Porcine) (Heparin -) 5,000 unit IVPUSH PRN PRN PRN Reason: HEPARIN PROTOCOL Stop: 08/17/17 08:49 Last Admin: 08/16/17 09:51 Dose: 5,000 unit Heparin Sodium (Porcine) (Heparin -) 1,000 unit IVPUSH PRN PRN PRN Reason: HEPARIN PROTOCOL Stop: 08/17/17 08:49 HEPARIN SOD,PORK IN 0.45% NACL (Heparin-1/2ns 25,000 Units/500) 25,000 units in 500 mls @ 20 mls/hr IVPB TITR NEIL; 1,000 UNITS/HR PRN Reason: Protocol Last Admin: 08/16/17 09:52 Dose: 2,100 units/hr, 42 mls/hr Insulin Aspart (Novolog Vial Sliding Scale -) 1 vial SQ ACHS [facility] PRN Reason: Protocol Last Admin: 08/16/17 11:03 Dose: Not Given Insulin Detemir (Levemir Vial) 40 units SQ BID@0700,2200 [facility] Last Admin: 08/16/17 06:07 Dose: 40 units Lactulose (Cephulac (Oral Use)) 20 gm PO DAILY [facility] Last Admin: 08/16/17 10:03 Dose: Not Given Levothyroxine Sodium (Synthroid -) 100 mcg PO DAILY@0700 [facility] Last Admin: 08/16/17 07:00 Dose: Not Given Metronidazole (Metrogel 0.75% Gel -) 1 applic TP BID [facility] Last Admin: 08/16/17 09:56 Dose: 1 applic Mupirocin (Bactroban 2% Ointment -) 1 applic TP DAILY [facility] Last Admin: 08/16/17 09:54 Dose: 1 applic Nystatin (Nystop Powder -) 1 applic TP DAILY [facility] Last Admin: 08/16/17 09:54 Dose: 1 applic Oxycodone HCl (Roxicodone -) 10 mg PO Q4H PRN PRN Reason: PAIN LEVEL 1-5 Last Admin: 08/16/17 11:56 Dose: 10 mg Tamsulosin HCl (Flomax -) 0.4 mg PO DAILY@0830 [facility] Last Admin: 08/16/17 09:51 Dose: 0.4 mg - Objective Vital Signs: Vital Signs Temperature 98.4 F 08/16/17 10:00 Pulse Rate 75 08/16/17 10:00 Respiratory Rate 22 08/16/17 09:00 Blood Pressure 101/61 08/16/17 10:00 O2 Sat by Pulse Oximetry (%) 95 08/16/17 06:16 Constitutional: Yes: No Distress, Calm, Obese Cardiovascular: Yes: Regular Rate and Rhythm Respiratory: Yes: Regular, Poor Air Entry (bases) Gastrointestinal: Yes: Normal Bowel Sounds, Soft Musculoskeletal: Yes: WNL Extremities: Yes: Other Integumentary: Yes: WNL, Other (wounds have healed well) Neurological: Yes: Alert, Oriented Psychiatric: Yes: Alert, Oriented Labs: CBC, BMP 08/15/17 06:00 08/16/17 07:45 INR, PTT INR 1.96 (0.82-1.09) H 08/08/17 05:34 Assessment/Plan Problem List - Problems (1) Acute renal insufficiency Code(s): N28.9 - DISORDER OF KIDNEY AND URETER, UNSPECIFIED (2) Atrial fibrillation Code(s): I48.91 - UNSPECIFIED ATRIAL FIBRILLATION Qualifiers: Atrial fibrillation type: chronic Qualified Code(s): I48.2 - Chronic atrial fibrillation (3) BPH (benign prostatic hyperplasia) Code(s): N40.0 - BENIGN PROSTATIC HYPERPLASIA WITHOUT LOWER URINRY TRACT SYMP (4) CHF (congestive heart failure) Code(s): I50.9 - HEART FAILURE, UNSPECIFIED Qualifiers: Heart failure type: unspecified Heart failure chronicity: acute on chronic Qualified Code(s): I50.9 - Heart failure, unspecified (5) Acute renal failure (ARF) Code(s): N17.9 - ACUTE KIDNEY FAILURE, UNSPECIFIED (6) CAD (coronary artery disease) Code(s): I25.10 - ATHSCL HEART DISEASE OF [place] CORONARY ARTERY W/O ANG PCTRS (7) COPD (chronic obstructive pulmonary disease) Code(s): J44.9 - CHRONIC OBSTRUCTIVE PULMONARY DISEASE, UNSPECIFIED (8) Cellulitis of right leg Code(s): L03.115 - CELLULITIS OF RIGHT LOWER LIMB (9) Diabetes Code(s): E11.9 - TYPE 2 DIABETES MELLITUS WITHOUT COMPLICATIONS (10) Dyslipidemia Code(s): E78.5 - HYPERLIPIDEMIA, UNSPECIFIED (11) Obesities, morbid Code(s): E66.01 - MORBID (SEVERE) OBESITY DUE TO EXCESS CALORIES (12) Open left ankle fracture Code(s): S82.892B - OTH FRACTURE OF LEFT LOWER LEG, INIT FOR OPN FX TYPE I/2 Qualifiers: Encounter type: initial encounter (13) Sleep apnea Code(s): G47.30 - SLEEP APNEA, UNSPECIFIED (14) Venous (peripheral) insufficiency Code(s): I87.2 - VENOUS INSUFFICIENCY (CHRONIC) (PERIPHERAL) (15) Venous ulcer Code(s): I87.8 - OTHER SPECIFIED DISORDERS OF VEINS Assessment/Plan 61 y.o. male with PMH of DM, morbid obesity, CAD, CHF, AFIB, CKD, BPH, LLE compound fracture s/p external fixation with hardware in place, RLE cellulitis, LE infected ulcers receiving IV antibiotics in [place] presenting with urinary retention, KRUNAL and generalized rash and elevated Vancomycin levels Hx of RLE cellulitis/LLE infected ulcers - appears to have improved Rash resolving KRUNAL on CKD Urinary retention urine cx noted plan will stop oral abx urine cx noted as per ortho if patient does not go to a halfway then if possible to give him air bed or water bed
[2017-08-16] MEDS: RIVAROXABAN 15 MG TABLET PO SCH (18:14)
--- NOTE | 2017-08-16 19:35 | PN ---
Progress Note (short form) - Note Progress Note: Patient seen in bed with his present, later his son arrived. The patient is awake, alert, on NC, c/o occasional SOB, sacral pain. Vital Signs Temp 97.9 F 08/16/17 15:32 Pulse 75 08/16/17 15:32 Resp 22 08/16/17 09:00 BP 92/70 08/16/17 15:32 Pulse Ox 95 08/16/17 06:16 Intake & Output 08/15/17 08/16/17 08/16/17 23:59 11:59 23:59 Intake Total 1381 912 736 Output Total 950 650 Balance 431 262 736 Intake: IV 606 312 336 HEPARIN-1/2NS 25,000 606 312 336 UNITS/500 25,000 units In 500 ml @ 1,000 UNITS/HR 20 mls/hr IVPB TITR NEIL Rx#:[id number] Oral 775 600 400 Output: Urine 950 650 Void 950 650 Other: Voiding Method Urinal Urinal # Unmeasured Voids Void 1 Bowel Movement No Occasionally confused, poor PO intake. Skin -candidal intertrigo in the perineal area sacral area seen on the pictures from the cell phone Neck no JVD, supple. Lungs B/L BS Heart S1s2 irregular, irregular c/w AFib. Abdomen obese, soft, No masses. Boyle in place. Ext induration and chronic stasis changes both LE. RLE wound is healing. Left ankle external fixation in place, minimal drainage from the wound. No erythema. Laboratory Results - last 24 hr 08/15/17 08/16/17 08/16/17 22:01 06:05 07:45 PTT (Actin FS) 33.2 D Sodium Potassium Chloride Carbon Dioxide Anion Gap BUN Creatinine POC Glucometer 125 118 Random Glucose Calcium 08/16/17 07:45 PTT (Actin FS) Sodium 138 Potassium 4.8 Chloride 104 Carbon Dioxide 27 Anion Gap 7 L BUN 84 H Creatinine 2.2 H POC Glucometer Random Glucose 99 Calcium 8.2 L Current Active Problems Problem Status Onset Acute on chronic renal insufficiency Acute Atrial fibrillation Acute BPH (benign prostatic hyperplasia) Acute CHF (congestive heart failure) Acute Diastolic CHF CTEPH ASHLEY Acute Gynecomastia Acute Severe pain left ankle fracture Acute Urinary (tract) obstruction Acute Plan Stop Heparin and re-start Xarelto. Continue BIPAP/Pulm consult. Dr Gotti/wound care eval. Topical treatment for candidal intertrigo. Follow BUN/Cr Problem List - Problems (1) Acute renal insufficiency Code(s): N28.9 - DISORDER OF KIDNEY AND URETER, UNSPECIFIED (2) Atrial fibrillation Code(s): I48.91 - UNSPECIFIED ATRIAL FIBRILLATION Qualifiers: Atrial fibrillation type: chronic Qualified Code(s): I48.2 - Chronic atrial fibrillation (3) BPH (benign prostatic hyperplasia) Code(s): N40.0 - BENIGN PROSTATIC HYPERPLASIA WITHOUT LOWER URINRY TRACT SYMP (4) CHF (congestive heart failure) Code(s): I50.9 - HEART FAILURE, UNSPECIFIED Qualifiers: Heart failure type: unspecified Heart failure chronicity: acute on chronic Qualified Code(s): I50.9 - Heart failure, unspecified (5) Accident due to mechanical fall without injury Code(s): W19.XXXA - UNSPECIFIED FALL, INITIAL ENCOUNTER Qualifiers: Encounter type: subsequent encounter Qualified Code(s): W19.XXXD - Unspecified fall, subsequent encounter (6) Severe pain Code(s): R52 - PAIN, UNSPECIFIED (7) Urinary (tract) obstruction Code(s): N13.9 - OBSTRUCTIVE AND REFLUX UROPATHY, UNSPECIFIED
[2017-08-16] MEDS: ATORVASTATIN CA 80 MG TABLET (FP) PO SCH (21:29)
[2017-08-16] MEDS: ACETAMINOPHEN 325 MG TABLET (FP) PO SCH (21:30)
[2017-08-16] MEDS ORDERED: PT OWN MED DRAWER 7, Y5N ONE (21:51)
[2017-08-17] MEDS: INSULIN SLIDING SCALE (NOVOLOG) 1 VIAL SQ SCH ×4 (06:07→21:40)
[2017-08-17] MEDS: FUROSEMIDE 40 MG TABLET (FP) PO SCH (06:10)
[2017-08-17] MEDS: DOCUSATE SODIUM 100 MG CAPSULE (FP) PO SCH ×3 (06:10→21:37)
[2017-08-17] MEDS: LEVOTHYROXINE NA 100 MCG TABLET (FP) PO SCH (06:24)
[2017-08-17] MEDS: INSULIN (LEVEMIR) 100 UNITS/ML UNITS SQ SCH ×2 (06:36→21:40)
[2017-08-17] MEDS: oxyCODONE HCL 5 MG TABLET PO PRN ×2 (10:19→17:36)
[2017-08-17] MEDS: TAMSULOSIN HCL 0.4 MG CAP.ER.24H (FP) PO SCH (10:19)
[2017-08-17] MEDS: ASPIRIN 81 MG CHEWABLE TABLETS PO SCH (10:20)
[2017-08-17] MEDS: BISACODYL 5 MG TABLET.DR (FP) PO SCH (10:20)
[2017-08-17] MEDS: LACTULOSE 20 GM/30 ML UDC (FOR ORAL USE ONLY) PO SCH ×2 (10:21→21:36)
[2017-08-17] MEDS: COLLAGENASE CLOSTRIDIUM HIST. 30 GRAMS TUBE TP SCH (10:22)
[2017-08-17] MEDS: ATENOLOL 50 MG TABLET (FP) PO SCH ×2 (10:22→21:38)
[2017-08-17] MEDS: MUPIROCIN 2% TOPICAL OINTMENT 22 GM TUBE TP SCH (10:23)
[2017-08-17] MEDS: metroNIDAZOLE 0.75% TOPICAL GEL 45 GM TUBE TP SCH ×2 (10:23→21:39)
[2017-08-17] MEDS: NYSTATIN POWDER 100,000 UNITS/GM - 15 GM TOPICAL POWDER TP SCH (10:23)
--- NOTE | 2017-08-17 10:37 | CON.PULM ---
Consult Consult Specialty:: PULMONARY Referred by:: Dr. Hudson Reason for Consultation:: shortness of breath - History of Present Illness Chief Complaint: shortness of breath History of Present Illness: 61yo male with h/o LV diastolic dysfunction, atrial fibrillation, h/o DVT, CAD, CKD, morbid obesity, ASHLEY, recent admission for LE cellulitis complicated by compound ankle fracture s/p external fixation who was sent from the group home for rash and decreased urine output. Found to be in acute renal failure and volume overloaded. Yesterday developed some shortness of breath when off his BiPAP without chest pain. +nonproductive cough without wheezing. No fevers, chills or sweats. Has been receiving lasix but some doses held due to hypotension. 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: Yes: Peripheral Neuropathy Cardio/Vascular: Yes: AFIB, CHF (tolicDias) Pulmonary: Yes: Pulmonary Embolus, Sleep Apnea, Other Gastrointestinal: Yes: Constipation Hepatobiliary: Yes: Cholelithiasis Renal/: Yes: Renal Inusuff Infectious Disease: Yes: Other (RLE cellulitis/ infected LE ulcers ) Psych: Yes: Depression Musculoskeletal: Yes: Chronic low back pain Rheumatology: Yes: Gout Endocrine: Yes: Diabetes Mellitus, Hypothyroidism - Past Surgical History Past Surgical History: Yes: Stent Additional Surgical History: LLE external fixation - Alcohol/Substance Use Hx Alcohol Use: No History of Substance Use: reports: None - Smoking History Smoking history: Former smoker Have you smoked in the past 12 months: No Aproximately how many cigarettes per day: 0 If you are a former smoker, when did you quit?: 1992 - Social History ADL: Independent History of Recent Travel: No Home Medications - Allergies Allergies/Adverse Reactions: Allergies Allergy/AdvReac Type Severity Reaction Status Date / Time Sulfa (Sulfonamide Allergy Intermediate Rash Verified 08/06/17 17:07 Antibiotics) - Home Medications Home Medications: Ambulatory Orders Albuterol 2.5/Ipratropium 0.5 [Duoneb -] 1 neb NEB Q4H PRN 08/06/17 Atenolol [Tenormin] 100 mg PO BID 08/06/17 Atorvastatin Calcium 80 mg PO HS 08/06/17 Bisacodyl 10 mg PO DAILY 08/06/17 Clotrimazole 15 gm TP DAILY 08/06/17 Collagenase Clostridium Hist. [Santyl] 1 applic TP DAILY 08/06/17 Diphenhydramine HCl [Benadryl -] 50 mg PO DAILY 08/06/17 Febuxostat [Uloric -] 40 mg PO DAILY 08/06/17 Furosemide [Lasix] 80 mg PO BID 08/06/17 Glipizide 10 mg PO BID 08/06/17 Insulin (Novolog) [Novolog] 0 units SQ AC 08/06/17 Insulin Glargine,Hum.rec.anlog [Lantus] 80 unit SQ HS 08/06/17 Ipratropium/Albuterol Sulfate [Iprat-Albut 0.5-3(2.5) mg/3 ml] 3 ml IH Q6H 08/06 Levothyroxine [Synthroid -] 100 mcg PO DAILY 08/06/17 Linaclotide [Linzess] 290 mcg PO DAILY 08/06/17 Liraglutide [Victoza -] 1.8 mg SQ DAILY 08/06/17 Mupirocin Ointment [Bactroban] 1 applic TP DAILY 08/06/17 Oxycodone HCl 10 mg PO Q4H PRN 08/06/17 Oxycodone HCl/Acetaminophen [Percocet 5-325 mg Tablet] 2 tab PO HS 08/06/17 Polyethylene Glycol 3350 [Miralax (For Daily Use) -] 17 gm PO BID 08/06/17 Pramoxine HCl/Calamine [Calamine Medicated Lotion] 177 ml TP DAILY 08/06/17 Rivaroxaban [Xarelto -] 15 mg PO DAILY 08/06/17 Vancomycin HCl 1 gm IV DAILY 08/06/17 metroNIDAZOLE 0.75% GEL [Metrogel 0.75% Gel -] 1 applic TP BID 08/06/17 Review of Systems - Review of Systems Constitutional: reports: Weakness. denies: Chills, Fever Eyes: denies: Recent Change in Vision HENT: denies: Nasal Congestion, Throat Pain Neck: denies: Stiffness, Tenderness Cardiovascular: reports: Edema, Shortness of Breath. denies: Chest Pain, Palpitations Respiratory: reports: Cough. denies: Hemoptysis, Wheezing Gastrointestinal: denies: Abdominal Pain, Nausea, Vomiting Genitourinary: denies: Dysuria, Hematuria Neurological: denies: Dizziness, Headache Physical Exam Vital Sings: Vital Signs Temperature 97.8 F 08/17/17 06:00 Pulse Rate 99 H 08/17/17 06:00 Respiratory Rate 20 08/17/17 06:00 Blood Pressure 100/53 08/17/17 06:00 O2 Sat by Pulse Oximetry (%) 98 08/17/17 01:42 Constitutional: Yes: Mild Distress Eyes: Yes: Conjunctiva Clear, EOM Intact HENT: Yes: Atraumatic, Normocephalic Neck: Yes: Supple, Trachea Midline Cardiovascular: Yes: Regular Rate and Rhythm Respiratory: Yes: Diminished (distant breath sounds) ...Clubbing: No Gastrointestinal: Yes: Normal Bowel Sounds, Soft, Abdomen, Obese, Other ( edematous) Edema: Yes Neurological: Yes: Alert, Oriented Labs: CBC, BMP 08/15/17 06:00 08/16/17 07:45 Imaging - Results Chest X-ray: Report Reviewed, Image Reviewed (last cxr 08/09 with pulmonary vascular congestion) Problem List - Problems (1) Acute on chronic diastolic (congestive) heart failure Code(s): I50.33 - ACUTE ON CHRONIC DIASTOLIC (CONGESTIVE) HEART FAILURE (2) Acute on chronic renal failure Code(s): N17.9 - ACUTE KIDNEY FAILURE, UNSPECIFIED; N18.9 - CHRONIC KIDNEY DISEASE, UNSPECIFIED (3) Atrial fibrillation Code(s): I48.91 - UNSPECIFIED ATRIAL FIBRILLATION Qualifiers: Atrial fibrillation type: chronic Qualified Code(s): I48.2 - Chronic atrial fibrillation (4) CAD (coronary artery disease) Code(s): I25.10 - ATHSCL HEART DISEASE OF [place] CORONARY ARTERY W/O ANG PCTRS (5) COPD (chronic obstructive pulmonary disease) Code(s): J44.9 - CHRONIC OBSTRUCTIVE PULMONARY DISEASE, UNSPECIFIED (6) Diabetes Code(s): E11.9 - TYPE 2 DIABETES MELLITUS WITHOUT COMPLICATIONS (7) Obesities, morbid Code(s): E66.01 - MORBID (SEVERE) OBESITY DUE TO EXCESS CALORIES (8) Pulmonary HTN Code(s): I27.20 - PULMONARY HYPERTENSION, UNSPECIFIED (9) Sleep apnea Code(s): G47.30 - SLEEP APNEA, UNSPECIFIED (10) Volume overload Code(s): E87.70 - FLUID OVERLOAD, UNSPECIFIED Assessment/Plan Acute on Chronic Diastolic Heart Failure Acute on Chronic Renal Failure Volume Overload Pulmonary HTN Atrial Fibrillation CAD COPD Morbid Obesity ASHLEY/OHS - shortness of breath likely due to volume overload/heart failure - check CXR - lasix IV if BP tolerates - monitor urine output, creatinine - inhaled bronchodilators - no indication for systemic steroids at this time - O2 to keep SpO2 >90% - BiPAP to assist in work of breathing - rate controlled with atenolol - continue anticoagulation Thank you for this consult Zaki Bowie MD
--- NOTE | 2017-08-17 11:39 | PN ---
Progress Note, Physician Chief Complaint: Patient was seen with a nurse present. Patient was seen lying on his abdomen, resting comfortably. Noted a wound - right ankle and a scratch wound near the heel. History of Present Illness: Recent hospitalization for acute cellulitis RLE after fall [employer]. The patient sustained open left ankle fracture while at [facility] and had subsequent external fixation by Dr. Thayer Morbid obesity. ASHLEY. Bilateral PE. Pulmonary HTN-CTEPH , ASHLEY AND CLASS 2 PAH. CHF-mostly diastolic. ASHD. STEMI in 2016 with MICHAEL x2 placed at [place]. Chronic A.Fib-on a/c-Xarelto/ASA now. Gout. Gouty arthritis CKD 3 DM type 2. Chronic DVT Right thigh, Stasis ulcers, edema. Chronic wound right Ankle/dobbs-RX at [facility]-groing multiple organisms. - Current Medication List Current Medications: Active Medications Acetaminophen (Tylenol -) 650 mg PO HS [facility] Last Admin: 08/16/17 21:30 Dose: 650 mg Albuterol Sulfate (Ventolin 0.083% Nebulizer Soln -) 1 amp NEB Q4H PRN PRN Reason: SHORT OF BREATH/WHEEZING Albuterol/Ipratropium (Duoneb -) 1 amp NEB RTID [facility] Aspirin (Asa -) 81 mg PO DAILY [facility] Last Admin: 08/17/17 10:20 Dose: 81 mg Atenolol (Tenormin -) 100 mg PO BID [facility] Last Admin: 08/17/17 10:22 Dose: 100 mg Atorvastatin Calcium (Lipitor -) 80 mg PO HS [facility]1983 Last Admin: 08/16/17 21:29 Dose: 80 mg Bisacodyl (Dulcolax -) 10 mg PO DAILY [facility] Last Admin: 08/17/17 10:20 Dose: 10 mg Bisacodyl (Dulcolax Suppository -) 10 mg RC PRN PRN PRN Reason: CONSTIPATION Collagenase (Santyl -) 1 applic TP DAILY [facility] Last Admin: 08/17/17 10:22 Dose: 1 applic Docusate Sodium (Colace -) 100 mg PO TID [facility] Last Admin: 08/17/17 06:10 Dose: 100 mg Furosemide (Lasix -) 80 mg PO BIDLASIX [facility] Last Admin: 08/17/17 06:10 Dose: 80 mg Insulin Aspart (Novolog Vial Sliding Scale -) 1 vial SQ ACHS [facility] PRN Reason: Protocol Last Admin: 08/17/17 06:07 Dose: Not Given Insulin Detemir (Levemir Vial) 40 units SQ BID@0700,2200 [facility] Last Admin: 08/17/17 06:36 Dose: 40 units Lactulose (Cephulac (Oral Use)) 20 gm PO BID [facility] Last Admin: 08/17/17 10:21 Dose: 20 gm Levothyroxine Sodium (Synthroid -) 100 mcg PO DAILY@0700 [facility] Last Admin: 08/17/17 06:24 Dose: 100 mcg Metronidazole (Metrogel 0.75% Gel -) 1 applic TP BID [facility] Last Admin: 08/17/17 10:23 Dose: 1 applic Mupirocin (Bactroban 2% Ointment -) 1 applic TP DAILY [facility] Last Admin: 08/17/17 10:23 Dose: 1 applic Nystatin (Nystop Powder -) 1 applic TP DAILY [facility] Last Admin: 08/17/17 10:23 Dose: 1 applic Oxycodone HCl (Roxicodone -) 10 mg PO Q4H PRN PRN Reason: PAIN LEVEL 1-5 Last Admin: 08/17/17 10:19 Dose: 10 mg Rivaroxaban (Xarelto -) 15 mg PO DAILY@1800 [facility] Last Admin: 08/16/17 18:14 Dose: 15 mg Tamsulosin HCl (Flomax -) 0.4 mg PO DAILY@0830 [facility] Last Admin: 08/17/17 10:19 Dose: 0.4 mg - Objective Vital Signs: Vital Signs Temperature 97.8 F 08/17/17 06:00 Pulse Rate 99 H 08/17/17 06:00 Respiratory Rate 20 08/17/17 06:00 Blood Pressure 100/53 08/17/17 06:00 O2 Sat by Pulse Oximetry (%) 98 08/17/17 01:42 Constitutional: Yes: Mild Distress, Obese HENT: Yes: Atraumatic, Normocephalic. No: Drooling, Epistaxis Neck: Yes: Supple, Trachea Midline Cardiovascular: Yes: Pulse Irregular. No: JVD Respiratory: Yes: Diminished (RLL), On Nasal O2, Rales (RLL>LLL) Gastrointestinal: Yes: Abdomen, Obese ...Rectal Exam: Yes: Deferred Genitourinary: No: Anuria Edema: Yes Edema: LLE: 1+, RLE: 1+ Integumentary: Yes: Other (New right ankle wound and right near the heel superficial scratch wound. Left ankle external fixation. Sacral B/L pressure injury -dry-no odor, no discharge. B/L posterior thighs drying candidal intertrigo -) Neurological: Yes: Alert, Oriented. No: Aphasia, Seizure, Tremors, Unresponsive Psychiatric: Yes: Alert, Oriented. No: Agitated Labs: CBC, BMP 08/15/17 06:00 08/16/17 07:45 INR, PTT INR 1.96 (0.82-1.09) H 08/08/17 05:34 - ....Imaging Chest X-ray: Report Reviewed (recommended repeat) Problem List - Problems (1) Acute renal insufficiency Assessment/Plan: Potassium improved. Avoid UVALDO and ARB. Follow renal fx. Code(s): N28.9 - DISORDER OF KIDNEY AND URETER, UNSPECIFIED (2) Atrial fibrillation Assessment/Plan: Continue Heparin IV, VR control. Code(s): I48.91 - UNSPECIFIED ATRIAL FIBRILLATION Qualifiers: Atrial fibrillation type: chronic Qualified Code(s): I48.2 - Chronic atrial fibrillation (3) BPH (benign prostatic hyperplasia) Assessment/Plan: Continue Boyle, Flomax as per Dr Ivy Code(s): N40.0 - BENIGN PROSTATIC HYPERPLASIA WITHOUT LOWER URINRY TRACT SYMP (4) CHF (congestive heart failure) Assessment/Plan: IV Lasix , Follow edema, UA output Code(s): I50.9 - HEART FAILURE, UNSPECIFIED Qualifiers: Heart failure type: unspecified Heart failure chronicity: acute on chronic Qualified Code(s): I50.9 - Heart failure, unspecified (5) Accident due to mechanical fall without injury Assessment/Plan: ortho f/u PT Follow x-rays Code(s): W19.XXXA - UNSPECIFIED FALL, INITIAL ENCOUNTER Qualifiers: Encounter type: subsequent encounter Qualified Code(s): W19.XXXD - Unspecified fall, subsequent encounter (6) Severe pain Assessment/Plan: Receiving Oxycodone every 4 hrs Code(s): R52 - PAIN, UNSPECIFIED (7) Urinary (tract) obstruction Assessment/Plan: Last night after Boyle out-urine retention Spoke to . Will ask F/u Code(s): N13.9 - OBSTRUCTIVE AND REFLUX UROPATHY, UNSPECIFIED (8) Unspecified open wound, right ankle, initial encounter Assessment/Plan: Start Silvadene cream and wound care consult of Dr Gotti. Code(s): S91.001A - UNSPECIFIED OPEN WOUND, RIGHT ANKLE, INITIAL ENCOUNTER
[2017-08-17] MEDS ORDERED: MAG HYDROX/AL HYDROX/SIMETH 30 ML UNIT-DOSE CUP PO PRN (12:00)
[2017-08-17] MEDS: ALBUTEROL SO4 2.5/IPRATROPIUM 0.5 INH SOL 3 ML VIAL.NEB. NEB SCH ×2 (13:40→21:01)
--- NOTE | 2017-08-17 14:46 | PN ---
Progress Note, Physician History of Present Illness: doing well no issues legs look good wounds healing - Current Medication List Current Medications: Active Medications Acetaminophen (Tylenol -) 650 mg PO HS [facility] Last Admin: 08/16/17 21:30 Dose: 650 mg Al Hydroxide/Mg Hydroxide (Mylanta Oral Suspension -) 30 ml PO Q6H PRN PRN Reason: DYSPEPSIA Albuterol Sulfate (Ventolin 0.083% Nebulizer Soln -) 1 amp NEB Q4H PRN PRN Reason: SHORT OF BREATH/WHEEZING Albuterol/Ipratropium (Duoneb -) 1 amp NEB RTID [facility] Last Admin: 08/17/17 13:40 Dose: 1 amp Aspirin (Asa -) 81 mg PO DAILY [facility] Last Admin: 08/17/17 10:20 Dose: 81 mg Atenolol (Tenormin -) 100 mg PO BID [facility] Last Admin: 08/17/17 10:22 Dose: 100 mg Atorvastatin Calcium (Lipitor -) 80 mg PO [facility] Last Admin: 08/16/17 21:29 Dose: 80 mg Bisacodyl (Dulcolax -) 10 mg PO DAILY [facility] Last Admin: 08/17/17 10:20 Dose: 10 mg Bisacodyl (Dulcolax Suppository -) 10 mg RC PRN PRN PRN Reason: CONSTIPATION Collagenase (Santyl -) 1 applic TP DAILY [facility] Last Admin: 08/17/17 10:22 Dose: 1 applic Docusate Sodium (Colace -) 100 mg PO TID [facility] Last Admin: 08/17/17 06:10 Dose: 100 mg Furosemide (Lasix Injection -) 80 mg IVPUSH BID@0600,1400 [facility] Insulin Aspart (Novolog Vial Sliding Scale -) 1 vial SQ ACHS [facility] PRN Reason: Protocol Last Admin: 08/17/17 12:35 Dose: Not Given Insulin Detemir (Levemir Vial) 40 units SQ BID@0700,2200 [facility] Last Admin: 08/17/17 06:36 Dose: 40 units Lactulose (Cephulac (Oral Use)) 20 gm PO BID [facility] Last Admin: 08/17/17 10:21 Dose: 20 gm Levothyroxine Sodium (Synthroid -) 100 mcg PO DAILY@0700 [facility] Last Admin: 08/17/17 06:24 Dose: 100 mcg Metronidazole (Metrogel 0.75% Gel -) 1 applic TP BID [facility] Last Admin: 08/17/17 10:23 Dose: 1 applic Mupirocin (Bactroban 2% Ointment -) 1 applic TP DAILY [facility] Last Admin: 08/17/17 10:23 Dose: 1 applic Nystatin (Nystop Powder -) 1 applic TP DAILY [facility] Last Admin: 08/17/17 10:23 Dose: 1 applic Oxycodone HCl (Roxicodone -) 10 mg PO Q4H PRN PRN Reason: PAIN LEVEL 1-5 Last Admin: 08/17/17 10:19 Dose: 10 mg Rivaroxaban (Xarelto -) 15 mg PO DAILY@1800 [facility] Last Admin: 08/16/17 18:14 Dose: 15 mg Silver Sulfadiazine (Silvadene -) 1 applic TP BID [facility] Tamsulosin HCl (Flomax -) 0.4 mg PO DAILY@0830 [facility] Last Admin: 08/17/17 10:19 Dose: 0.4 mg - Objective Vital Signs: Vital Signs Temperature 98.0 F 08/17/17 14:00 Pulse Rate 74 08/17/17 14:00 Respiratory Rate 18 08/17/17 14:00 Blood Pressure 129/69 08/17/17 14:00 O2 Sat by Pulse Oximetry (%) 98 08/17/17 01:42 Constitutional: Yes: No Distress, Calm, Obese Cardiovascular: Yes: Regular Rate and Rhythm Respiratory: Yes: On BiPap, On Nasal O2, Poor Air Entry Gastrointestinal: Yes: Normal Bowel Sounds, Soft Musculoskeletal: Yes: WNL Extremities: Yes: Other Neurological: Yes: Alert, Oriented Psychiatric: Yes: Alert, Oriented Labs: CBC, BMP 08/15/17 06:00 08/16/17 07:45 INR, PTT INR 1.96 (0.82-1.09) H 08/08/17 05:34 Assessment/Plan Problem List - Problems (1) Acute renal insufficiency Code(s): N28.9 - DISORDER OF KIDNEY AND URETER, UNSPECIFIED (2) Atrial fibrillation Code(s): I48.91 - UNSPECIFIED ATRIAL FIBRILLATION Qualifiers: Atrial fibrillation type: chronic Qualified Code(s): I48.2 - Chronic atrial fibrillation (3) BPH (benign prostatic hyperplasia) Code(s): N40.0 - BENIGN PROSTATIC HYPERPLASIA WITHOUT LOWER URINRY TRACT SYMP (4) CHF (congestive heart failure) Code(s): I50.9 - HEART FAILURE, UNSPECIFIED Qualifiers: Heart failure type: unspecified Heart failure chronicity: acute on chronic Qualified Code(s): I50.9 - Heart failure, unspecified (5) Acute renal failure (ARF) Code(s): N17.9 - ACUTE KIDNEY FAILURE, UNSPECIFIED (6) CAD (coronary artery disease) Code(s): I25.10 - ATHSCL HEART DISEASE OF [place] CORONARY ARTERY W/O ANG PCTRS (7) COPD (chronic obstructive pulmonary disease) Code(s): J44.9 - CHRONIC OBSTRUCTIVE PULMONARY DISEASE, UNSPECIFIED (8) Cellulitis of right leg Code(s): L03.115 - CELLULITIS OF RIGHT LOWER LIMB (9) Diabetes Code(s): E11.9 - TYPE 2 DIABETES MELLITUS WITHOUT COMPLICATIONS (10) Dyslipidemia Code(s): E78.5 - HYPERLIPIDEMIA, UNSPECIFIED (11) Obesities, morbid Code(s): E66.01 - MORBID (SEVERE) OBESITY DUE TO EXCESS CALORIES (12) Open left ankle fracture Code(s): S82.892B - OTH FRACTURE OF LEFT LOWER LEG, INIT FOR OPN FX TYPE I/2 Qualifiers: Encounter type: initial encounter (13) Sleep apnea Code(s): G47.30 - SLEEP APNEA, UNSPECIFIED (14) Venous (peripheral) insufficiency Code(s): I87.2 - VENOUS INSUFFICIENCY (CHRONIC) (PERIPHERAL) (15) Venous ulcer Code(s): I87.8 - OTHER SPECIFIED DISORDERS OF VEINS Assessment/Plan 61 y.o. male with PMH of DM, morbid obesity, CAD, CHF, AFIB, CKD, BPH, LLE compound fracture s/p external fixation with hardware in place, RLE cellulitis, LE infected ulcers receiving IV antibiotics in [place] presenting with urinary retention, KRUNAL and generalized rash and elevated Vancomycin levels Hx of RLE cellulitis/LLE infected ulcers - appears to have improved Rash resolving KRUNAL on CKD Urinary retention plan continue to monitor care of the fracture resp support diet no abx further plan awaited
--- NOTE | 2017-08-17 14:55 | CONSULT ---
- Consultation REQUESTING PROVIDER: Angel Gotti - Wound Care CONSULT REQUEST: We have been asked to surgically evaluate this patient for sacral wound PCP: Keyon Hudson HPI: Asked to eval 61 yo male admitted with, Patient well know to Wound Care Service. Early development of sacral DTI. PMHx: CAD, Peripheral Neuropathy, AFIB, CHF (diastolic), Pulmonary Embolus, Sleep Apnea (CPAP), Constipation, Cholelithiasis, Renal Inusuff, Anemia, RLE cellulitis, Depression, Chronic LBP, Morbid obesity, Gout, Diabetes Mellitus, Hypothyroidism PSHx: Stent Smoking history: Former smoker Home Meds Albuterol 2.5/Ipratropium 0.5 [Duoneb -] 1 neb NEB Q4H PRN 08/06/17 Atenolol [Tenormin] 100 mg PO BID 08/06/17 Atorvastatin Calcium 80 mg PO HS 08/06/17 Bisacodyl 10 mg PO DAILY 08/06/17 Clotrimazole 15 gm TP DAILY 08/06/17 Collagenase Clostridium Hist. [Santyl] 1 applic TP DAILY 08/06/17 Diphenhydramine HCl [Benadryl -] 50 mg PO DAILY 08/06/17 Febuxostat [Uloric -] 40 mg PO DAILY 08/06/17 Furosemide [Lasix] 80 mg PO BID 08/06/17 Glipizide 10 mg PO BID 08/06/17 Insulin (Novolog) [Novolog] 0 units SQ AC 08/06/17 Insulin Glargine,Hum.rec.anlog [Lantus] 80 unit SQ HS 08/06/17 Ipratropium/Albuterol Sulfate [Iprat-Albut 0.5-3(2.5) mg/3 ml] 3 ml IH Q6H 08/06 Levothyroxine [Synthroid -] 100 mcg PO DAILY 08/06/17 Linaclotide [Linzess] 290 mcg PO DAILY 08/06/17 Liraglutide [Victoza -] 1.8 mg SQ DAILY 08/06/17 Mupirocin Ointment [Bactroban] 1 applic TP DAILY 08/06/17 Oxycodone HCl 10 mg PO Q4H PRN 08/06/17 Oxycodone HCl/Acetaminophen [Percocet 5-325 mg Tablet] 2 tab PO HS 08/06/17 Polyethylene Glycol 3350 [Miralax (For Daily Use) -] 17 gm PO BID 08/06/17 Pramoxine HCl/Calamine [Calamine Medicated Lotion] 177 ml TP DAILY 08/06/17 Rivaroxaban [Xarelto -] 15 mg PO DAILY 08/06/17 Vancomycin HCl 1 gm IV DAILY 08/06/17 metroNIDAZOLE 0.75% GEL [Metrogel 0.75% Gel -] 1 applic TP BID 08/06/17 Allergies Sulfa --> Rash ROS: CONSTITUTIONAL: Absent: fever, chills, diaphoresis, generalized weakness, malaise, loss of appetite, weight change CARDIOVASCULAR: Absent: chest pain, syncope, palpitations, irregular heart rate , lightheadedness, peripheral edema RESPIRATORY: Absent: cough, shortness of breath, dyspnea with exertion, wheezing , stridor, hemoptysis GASTROINTESTINAL:Absent: abdominal pain, abdominal distension, nausea, vomiting , diarrhea, constipation, melena, hematochezia GENITOURINARY: Absent: dysuria, frequency, urgency, hesitancy, hematuria, flank pain, genital pain MUSCULOSKELETAL: Absent: myalgia, arthralgia, joint swelling, back pain, neck pain SKIN: SEE HPI HEMATOLOGIC/IMMUNOLOGIC: Absent: easy bleeding, easy bruising, lymphadenopathy NEUROLOGIC: Absent: headache, focal weakness, paresthesias, dizziness, unsteady gait, seizure, mental status changes PSYCHIATRIC: Absent: anxiety, depression, suicidal or homicidal ideation, hallucinations. PE: GENERAL: Awake, alert, no acute distress. SKIN: Sacrum --> early DTI as indicated by discoloration of tissue (purple). No induration/bogginess/fluctuance/tissue necrosis. Milld ttp. Vital Signs Temperature 98.0 F 08/17/17 14:00 Pulse Rate 74 08/17/17 14:00 Respiratory Rate 18 08/17/17 14:00 Blood Pressure 129/69 08/17/17 14:00 O2 Sat by Pulse Oximetry (%) 98 08/17/17 01:42 Lab Results WBC 8.0 K/mm3 (4.0-10.0) D 08/15/17 06:00 RBC 3.14 M/mm3 (4.00-5.60) L 08/15/17 06:00 Hgb 9.5 GM/dL (11.7-16.9) L 08/15/17 06:00 Hct 30.1 % (35.4-49) L 08/15/17 06:00 MCV 96.0 fl (80-96) 08/15/17 06:00 MCHC 31.6 g/dl (32.0-35.9) L 08/15/17 06:00 RDW 17.5 % (11.9-15.9) H 08/15/17 06:00 Plt Count 233 K/MM3 (134-434) 08/15/17 06:00 Sodium 138 mmol/L (136-145) 08/16/17 07:45 Potassium 4.8 mmol/L (3.5-5.1) 08/16/17 07:45 Chloride 104 mmol/L (98-107) 08/16/17 07:45 Carbon Dioxide 27 mmol/L (21-32) 08/16/17 07:45 Anion Gap 7 (8-16) L 08/16/17 07:45 BUN 84 mg/dL (7-18) H 08/16/17 07:45 Creatinine 2.2 mg/dL (0.7-1.3) H 08/16/17 07:45 Random Glucose 99 mg/dL (74-106) 08/16/17 07:45 Calcium 8.2 mg/dL (8.5-10.1) L 08/16/17 07:45 INR 1.96 (0.82-1.09) H 08/08/17 05:34 Problem List - Problems (1) Suspected deep tissue injury Assessment/Plan: CPAP as directed Offload all pressure sensitive areas Avoid prolonged sitting/laying Optifoam dressing No surgical intervention Cont medical management Above discussed with Dr. Gotti and agrees. On behalf of Dr. Gotti, thank you for the opportunity to participate in your patient's care Code(s): R68.89 - OTHER GENERAL SYMPTOMS AND SIGNS Visit type - Case Type Case Type: ED Admission
[2017-08-17] MEDS: FUROSEMIDE 40 MG/4 ML INJECTABLE VIAL IVPUSH SCH (15:12)
[2017-08-17] MEDS: SILVER SULFADIAZINE 1% TOP CREAM 50 GM JAR TP SCH ×2 (15:12→21:39)
--- NOTE | 2017-08-17 15:16 | PN ---
Progress Note, Physician History of Present Illness: Pt seen and examined at bedside. He is awake and alert. - Current Medication List Current Medications: Active Medications Acetaminophen (Tylenol -) 650 mg PO HS [facility] Last Admin: 08/16/17 21:30 Dose: 650 mg Al Hydroxide/Mg Hydroxide (Mylanta Oral Suspension -) 30 ml PO Q6H PRN PRN Reason: DYSPEPSIA Albuterol Sulfate (Ventolin 0.083% Nebulizer Soln -) 1 amp NEB Q4H PRN PRN Reason: SHORT OF BREATH/WHEEZING Albuterol/Ipratropium (Duoneb -) 1 amp NEB RTID [facility] Last Admin: 08/17/17 13:40 Dose: 1 amp Aspirin (Asa -) 81 mg PO DAILY [facility] Last Admin: 08/17/17 10:20 Dose: 81 mg Atenolol (Tenormin -) 100 mg PO BID [facility] Last Admin: 08/17/17 10:22 Dose: 100 mg Atorvastatin Calcium (Lipitor -) [address] [facility] Last Admin: 08/16/17 21:29 Dose: 80 mg Bisacodyl (Dulcolax -) 10 mg PO DAILY [facility] Last Admin: 08/17/17 10:20 Dose: 10 mg Bisacodyl (Dulcolax Suppository -) 10 mg RC PRN PRN PRN Reason: CONSTIPATION Collagenase (Santyl -) 1 applic TP DAILY [facility] Last Admin: 08/17/17 10:22 Dose: 1 applic Docusate Sodium (Colace -) 100 mg PO TID [facility] Last Admin: 08/17/17 06:10 Dose: 100 mg Furosemide (Lasix Injection -) 80 mg IVPUSH BID@0600,1400 [facility] Insulin Aspart (Novolog Vial Sliding Scale -) 1 vial SQ ACHS [facility] PRN Reason: Protocol Last Admin: 08/17/17 12:35 Dose: Not Given Insulin Detemir (Levemir Vial) 40 units SQ BID@0700,2200 [facility] Last Admin: 08/17/17 06:36 Dose: 40 units Lactulose (Cephulac (Oral Use)) 20 gm PO BID [facility] Last Admin: 08/17/17 10:21 Dose: 20 gm Levothyroxine Sodium (Synthroid -) 100 mcg PO DAILY@0700 [facility] Last Admin: 08/17/17 06:24 Dose: 100 mcg Metronidazole (Metrogel 0.75% Gel -) 1 applic TP BID [facility] Last Admin: 08/17/17 10:23 Dose: 1 applic Mupirocin (Bactroban 2% Ointment -) 1 applic TP DAILY [facility] Last Admin: 08/17/17 10:23 Dose: 1 applic Nystatin (Nystop Powder -) 1 applic TP DAILY [facility] Last Admin: 08/17/17 10:23 Dose: 1 applic Oxycodone HCl (Roxicodone -) 10 mg PO Q4H PRN PRN Reason: PAIN LEVEL 1-5 Last Admin: 08/17/17 10:19 Dose: 10 mg Rivaroxaban (Xarelto -) 15 mg PO DAILY@1800 [facility] Last Admin: 08/16/17 18:14 Dose: 15 mg Silver Sulfadiazine (Silvadene -) 1 applic TP BID [facility] Tamsulosin HCl (Flomax -) 0.4 mg PO DAILY@0830 [facility] Last Admin: 08/17/17 10:19 Dose: 0.4 mg - Objective Vital Signs: Vital Signs Temperature 98.0 F 08/17/17 14:00 Pulse Rate 74 08/17/17 14:00 Respiratory Rate 18 08/17/17 14:00 Blood Pressure 129/69 08/17/17 14:00 O2 Sat by Pulse Oximetry (%) 98 08/17/17 01:42 Constitutional: Yes: Calm Eyes: Yes: Conjunctiva Clear HENT: Yes: Atraumatic Neck: Yes: Supple Cardiovascular: Yes: S1, S2 Respiratory: Yes: Other (on cpap) Gastrointestinal: Yes: Soft, Abdomen, Obese Genitourinary: Yes: WNL Extremities: Yes: Other (external fixation of fracture) Integumentary: Yes: Venous Stasis Changes Neurological: Yes: Oriented Psychiatric: Yes: Oriented Labs: CBC, BMP 08/15/17 06:00 08/16/17 07:45 INR, PTT INR 1.96 (0.82-1.09) H 08/08/17 05:34 Problem List - Problems (1) Acute renal insufficiency Code(s): N28.9 - DISORDER OF KIDNEY AND URETER, UNSPECIFIED (2) Atrial fibrillation Code(s): I48.91 - UNSPECIFIED ATRIAL FIBRILLATION Qualifiers: Atrial fibrillation type: chronic Qualified Code(s): I48.2 - Chronic atrial fibrillation (3) BPH (benign prostatic hyperplasia) Code(s): N40.0 - BENIGN PROSTATIC HYPERPLASIA WITHOUT LOWER URINRY TRACT SYMP (4) CHF (congestive heart failure) Code(s): I50.9 - HEART FAILURE, UNSPECIFIED Qualifiers: Heart failure type: unspecified Heart failure chronicity: acute on chronic Qualified Code(s): I50.9 - Heart failure, unspecified (5) Acute renal failure (ARF) Code(s): N17.9 - ACUTE KIDNEY FAILURE, UNSPECIFIED (6) CAD (coronary artery disease) Code(s): I25.10 - ATHSCL HEART DISEASE OF [place] CORONARY ARTERY W/O ANG PCTRS (7) CKD (chronic kidney disease) Code(s): N18.9 - CHRONIC KIDNEY DISEASE, UNSPECIFIED (8) Cellulitis Code(s): L03.90 - CELLULITIS, UNSPECIFIED Assessment/Plan Current Medications Generic Name Dose Route Start Last Admin Trade Name Freq PRN Reason Stop Dose Admin Acetaminophen 650 mg 08/07/17 22:00 08/16/17 21:30 Tylenol - PO 650 mg HS NEIL Administration Al Hydroxide/Mg Hydroxide 30 ml 08/17/17 12:00 Mylanta Oral Suspension - PO Q6H PRN DYSPEPSIA Albuterol Sulfate 1 amp 08/17/17 10:47 Ventolin 0.083% Nebulizer Soln - NEB Q4H PRN SHORT OF BREATH/WHEEZING Albuterol/Ipratropium 1 amp 08/17/17 14:00 08/17/17 13:40 Duoneb - NEB 1 amp RTID NEIL Administration Aspirin 81 mg 08/11/17 10:00 08/17/17 10:20 Asa - PO 81 mg DAILY NEIL Administration Atenolol 100 mg 08/07/17 13:35 08/17/17 10:22 Tenormin - PO 100 mg BID NEIL Administration Atorvastatin Calcium 80 mg 08/07/17 22:00 08/16/17 21:29 Lipitor - PO 80 mg HS NEIL Administration Bisacodyl 10 mg 08/07/17 10:00 08/17/17 10:20 Dulcolax - PO 10 mg DAILY NEIL Administration Bisacodyl 10 mg 08/15/17 17:44 Dulcolax Suppository - RC PRN PRN CONSTIPATION Collagenase 1 applic 08/07/17 10:00 08/17/17 10:22 Santyl - TP 1 applic DAILY NEIL Administration Docusate Sodium 100 mg 08/07/17 13:45 08/17/17 15:11 Colace - PO Not Given TID NEIL Furosemide 80 mg 08/17/17 14:00 08/17/17 15:12 Lasix Injection - IVPUSH 80 mg BID@0600,1400 NEIL Administration Insulin Aspart 1 vial 08/07/17 07:00 08/17/17 12:35 Novolog Vial Sliding Scale - SQ Not Given ACHS [facility] Protocol Insulin Detemir 40 units 08/07/17 07:00 08/17/17 06:36 Levemir Vial SQ 40 units BID@0700,2200 NEIL Administration Lactulose 20 gm 08/16/17 22:00 08/17/17 10:21 Cephulac (Oral Use) PO 20 gm BID NEIL Administration Levothyroxine Sodium 100 mcg 08/07/17 07:00 08/17/17 06:24 Synthroid - PO 100 mcg DAILY@0700 NEIL Administration Metronidazole 1 applic 08/07/17 10:00 08/17/17 10:23 Metrogel 0.75% Gel - TP 1 applic BID NEIL Administration Mupirocin 1 applic 08/07/17 10:00 08/17/17 10:23 Bactroban 2% Ointment - TP 1 applic DAILY NEIL Administration Nystatin 1 applic 08/11/17 10:00 08/17/17 10:23 Nystop Powder - TP 1 applic DAILY NEIL Administration Oxycodone HCl 10 mg 08/13/17 18:18 08/17/17 10:19 Roxicodone - PO 10 mg Q4H PRN Administration PAIN LEVEL 1-5 Rivaroxaban 15 mg 08/16/17 18:00 08/16/17 18:14 Xarelto - PO 15 mg DAILY@1800 NEIL Administration Silver Sulfadiazine 1 applic 08/17/17 12:00 08/17/17 15:12 Silvadene - TP 1 applic BID NEIL Administration Tamsulosin HCl 0.4 mg 08/07/17 11:45 08/17/17 10:19 Flomax - PO 0.4 mg DAILY@0830 NEIL Administration Impression 1. CKD 2. KRUNAL 3. volume overload 4. morbid obesity 5. CAD 6. cellulitis 7. s/p fall 8. a-fib 9. DM 10. hypothyroidism 11. HLD 12. CHF 13. s/p leg fracture 14. hyperkalemia 15. constipation Plan - check bmp, will order for am - cont with lasix - avoid nephrotoxic agents - monitor renal function - will hold off jasmyne as he has had hyperkalemia on multiple occasions - renal diet
[2017-08-17] MEDS: RIVAROXABAN 15 MG TABLET PO SCH (17:37)
[2017-08-17] MEDS: ATORVASTATIN CA 80 MG TABLET (FP) PO SCH (21:37)
[2017-08-17] MEDS: ACETAMINOPHEN 325 MG TABLET (FP) PO SCH (21:37)
[2017-08-18] MEDS: ALBUTEROL SO4 0.083% IH SOL 2.5 MG/3 ML VIAL.NEB. NEB PRN (06:37)
[2017-08-18] MEDS: DOCUSATE SODIUM 100 MG CAPSULE (FP) PO SCH ×3 (06:41→21:38)
[2017-08-18] MEDS: LEVOTHYROXINE NA 100 MCG TABLET (FP) PO SCH (06:41)
[2017-08-18] MEDS: oxyCODONE HCL 5 MG TABLET PO PRN ×3 (06:47→17:12)
[2017-08-18] MEDS: INSULIN SLIDING SCALE (NOVOLOG) 1 VIAL SQ SCH ×4 (06:54→21:39)
[2017-08-18] MEDS: INSULIN (LEVEMIR) 100 UNITS/ML UNITS SQ SCH (06:54)
[2017-08-18] MEDS: FUROSEMIDE 40 MG/4 ML INJECTABLE VIAL IVPUSH SCH (06:54)
--- NOTE | 2017-08-18 07:45 | PN ---
Progress Note, Physician History of Present Illness: Recent hospitalization for acute cellulitis RLE after fall FRONT END ARCHITECT. The patient sustained open left ankle fracture while at [facility] and had subsequent external fixation by Dr. Thayer Morbid obesity. ASHLEY. Bilateral PE. Pulmonary HTN-CTEPH , ASHLEY AND CLASS 2 PAH. CHF-mostly diastolic. ASHD. STEMI in 2016 with MICHAEL x2 placed at [place]. Chronic A.Fib-on a/c-Xarelto/ASA now. Gout. Gouty arthritis CKD 3 DM type 2. Chronic DVT Right thigh, Stasis ulcers, edema. Chronic wound right Ankle/dobbs-RX at [facility]-groing multiple organisms. - Current Medication List Current Medications: Active Medications Acetaminophen (Tylenol -) 650 mg PO HS [facility] Last Admin: 08/17/17 21:37 Dose: 650 mg Al Hydroxide/Mg Hydroxide (Mylanta Oral Suspension -) 30 ml PO Q6H PRN PRN Reason: DYSPEPSIA Albuterol Sulfate (Ventolin 0.083% Nebulizer Soln -) 1 amp NEB Q4H PRN PRN Reason: SHORT OF BREATH/WHEEZING Last Admin: 08/18/17 06:37 Dose: 1 amp Albuterol/Ipratropium (Duoneb -) 1 amp NEB RTID [facility] Last Admin: 08/17/17 21:01 Dose: 1 amp Aspirin (Asa -) 81 mg PO DAILY [facility] Last Admin: 08/17/17 10:20 Dose: 81 mg Atenolol (Tenormin -) 100 mg PO BID [facility] Last Admin: 08/17/17 21:38 Dose: 100 mg Atorvastatin Calcium (Lipitor -) 80 mg PO HS [facility] Last Admin: 08/17/17 21:37 Dose: 80 mg Bisacodyl (Dulcolax -) 10 mg PO DAILY [facility] Last Admin: 08/17/17 10:20 Dose: 10 mg Bisacodyl (Dulcolax Suppository -) 10 mg RC PRN PRN PRN Reason: CONSTIPATION Collagenase (Santyl -) 1 applic TP DAILY [facility] Last Admin: 08/17/17 10:22 Dose: 1 applic Docusate Sodium (Colace -) 100 mg PO TID [facility] Last Admin: 08/18/17 06:41 Dose: 100 mg Furosemide (Lasix -) 80 mg PO BID@0600,1400 [facility] Insulin Aspart (Novolog Vial Sliding Scale -) 1 vial SQ ACHS [facility]; Protocol Last Admin: 08/18/17 06:54 Dose: Not Given Insulin Detemir (Levemir Vial) 40 units SQ BID@0700,2200 [facility] Last Admin: 08/18/17 06:54 Dose: Not Given Lactulose (Cephulac (Oral Use)) 20 gm PO TID [facility] Levothyroxine Sodium (Synthroid -) 100 mcg PO DAILY@0700 [facility] Last Admin: 08/18/17 06:41 Dose: 100 mcg Methylnaltrexone [place] (Relistor -) 8 mg SQ DAILY [facility] Metronidazole (Metrogel 0.75% Gel -) 1 applic TP BID [facility] Last Admin: 08/17/17 21:39 Dose: 1 applic Mupirocin (Bactroban 2% Ointment -) 1 applic TP DAILY [facility] Last Admin: 08/17/17 10:23 Dose: 1 applic Nystatin (Nystop Powder -) 1 applic TP DAILY [facility] Last Admin: 08/17/17 10:23 Dose: 1 applic Oxycodone HCl (Roxicodone -) 10 mg PO Q4H PRN PRN Reason: PAIN LEVEL 1-5 Last Admin: 08/18/17 06:47 Dose: 10 mg Rivaroxaban (Xarelto -) 15 mg PO DAILY@1800 [facility] Last Admin: 08/17/17 17:37 Dose: 15 mg Silver Sulfadiazine (Silvadene -) 1 applic TP BID [facility] Last Admin: 08/17/17 21:39 Dose: 1 applic Tamsulosin HCl (Flomax -) 0.4 mg PO DAILY@0830 [facility] Last Admin: 08/17/17 10:19 Dose: 0.4 mg - Objective Vital Signs: Vital Signs Temperature 97.2 F L 08/17/17 22:00 Pulse Rate 72 08/17/17 22:00 Respiratory Rate 19 08/17/17 22:00 Blood Pressure 109/60 08/17/17 22:00 O2 Sat by Pulse Oximetry (%) 98 08/17/17 01:42 Labs: CBC, BMP 08/15/17 06:00 08/16/17 07:45 INR, PTT INR 1.96 (0.82-1.09) H 08/08/17 05:34 Problem List - Problems (1) Acute renal insufficiency Code(s): N28.9 - DISORDER OF KIDNEY AND URETER, UNSPECIFIED (2) Atrial fibrillation Code(s): I48.91 - UNSPECIFIED ATRIAL FIBRILLATION Qualifiers: Atrial fibrillation type: chronic Qualified Code(s): I48.2 - Chronic atrial fibrillation (3) BPH (benign prostatic hyperplasia) Code(s): N40.0 - BENIGN PROSTATIC HYPERPLASIA WITHOUT LOWER URINRY TRACT SYMP (4) CHF (congestive heart failure) Code(s): I50.9 - HEART FAILURE, UNSPECIFIED Qualifiers: Heart failure type: unspecified Heart failure chronicity: acute on chronic Qualified Code(s): I50.9 - Heart failure, unspecified (5) Accident due to mechanical fall without injury Code(s): W19.XXXA - UNSPECIFIED FALL, INITIAL ENCOUNTER Qualifiers: Encounter type: subsequent encounter Qualified Code(s): W19.XXXD - Unspecified fall, subsequent encounter (6) Severe pain Code(s): R52 - PAIN, UNSPECIFIED (7) Urinary (tract) obstruction Code(s): N13.9 - OBSTRUCTIVE AND REFLUX UROPATHY, UNSPECIFIED (8) Unspecified open wound, right ankle, initial encounter Code(s): S91.001A - UNSPECIFIED OPEN WOUND, RIGHT ANKLE, INITIAL ENCOUNTER
[2017-08-18 08:18] LABS: CHLORIDE 103 mmol/L (98-107); POTASSIUM 4.5 mmol/L (3.5-5.1); SODIUM 140 mmol/L (136-145)
[2017-08-18 08:27] LABS: ALBUMIN 2.6 g/dl (3.4-5.0); ALK PHOS 98 U/L (45-117); ANION GAP 8 (8-16); BILIRUBIN,TOTAL 0.7 mg/dL (0.2-1.0); BLOOD UREA NITROGEN 82 mg/dL (7-18); CALCIUM 8.1 mg/dL (8.5-10.1); CO2 29 mmol/L (21-32); GLUCOSE,RANDOM 53 mg/dL (74-106); SGOT/AST 19 U/L (15-37); SGPT/ALT 15 U/L (12-78); TOT PROT 7.1 g/dl (6.4-8.2)
--- NOTE | 2017-08-18 08:28 | PN ---
Progress Note, Physician Chief Complaint: rESTING ON HIS BACK. sEEN BY WOUND CARE. bgm LOW IN am/\POOR po INTAKE, CONSTIPATION IS POORLY RESPONDING TO PREVIOUS ORAL MEDS. 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 The patient sustained open left ankle fracture while at [facility] and had subsequent external fixation by Dr. Thayer Morbid obesity. ASHLEY. Bilateral PE. Pulmonary HTN-CTEPH , ASHLEY AND CLASS 2 PAH. CHF-mostly diastolic. ASHD. STEMI in 2016 with MICHAEL x2 placed at [place]. Chronic A.Fib-on a/c-Xarelto/ASA now. Gout. Gouty arthritis CKD 3 DM type 2. Chronic DVT Right thigh, Stasis ulcers, edema. Chronic wound right Ankle/dobbs-RX at [facility]-groing multiple organisms. - Current Medication List Current Medications: Active Medications Acetaminophen (Tylenol -) 650 mg PO [facility] Last Admin: 08/17/17 21:37 Dose: 650 mg Al Hydroxide/Mg Hydroxide (Mylanta Oral Suspension -) 30 ml PO Q6H PRN PRN Reason: DYSPEPSIA Albuterol Sulfate (Ventolin 0.083% Nebulizer Soln -) 1 amp NEB Q4H PRN PRN Reason: SHORT OF BREATH/WHEEZING Last Admin: 08/18/17 06:37 Dose: 1 amp Albuterol/Ipratropium (Duoneb -) 1 amp NEB RTID [facility] Last Admin: 08/17/17 21:01 Dose: 1 amp Aspirin (Asa -) 81 mg PO DAILY [facility] Last Admin: 08/17/17 10:20 Dose: 81 mg Atenolol (Tenormin -) 100 mg PO BID [facility] Last Admin: 08/17/17 21:38 Dose: 100 mg Atorvastatin Calcium (Lipitor -) 80 mg PO [facility] Last Admin: 08/17/17 21:37 Dose: 80 mg Bisacodyl (Dulcolax -) 10 mg PO DAILY [facility] Last Admin: 08/17/17 10:20 Dose: 10 mg Bisacodyl (Dulcolax Suppository -) 10 mg RC PRN PRN PRN Reason: CONSTIPATION Collagenase (Santyl -) 1 applic TP DAILY [facility] Last Admin: 08/17/17 10:22 Dose: 1 applic Docusate Sodium (Colace -) 100 mg PO TID [facility] Last Admin: 08/18/17 06:41 Dose: 100 mg Furosemide (Lasix -) 80 mg PO BID@0600,1400 [facility] Insulin Aspart (Novolog Vial Sliding Scale -) 1 vial SQ [facility]; Protocol Last Admin: 08/18/17 06:54 Dose: Not Given Insulin Detemir (Levemir Vial) 40 units SQ BID@0700,2200 [facility] Last Admin: 08/18/17 06:54 Dose: Not Given Lactulose (Cephulac (Oral Use)) 20 gm PO TID [facility] Levothyroxine Sodium (Synthroid -) 100 mcg PO DAILY@0700 [facility] Last Admin: 08/18/17 06:41 Dose: 100 mcg Methylnaltrexone [place] (Relistor -) 8 mg SQ DAILY [facility] Metronidazole (Metrogel 0.75% Gel -) 1 applic TP BID [facility] Last Admin: 08/17/17 21:39 Dose: 1 applic Mupirocin (Bactroban 2% Ointment -) 1 applic TP DAILY [facility] Last Admin: 08/17/17 10:23 Dose: 1 applic Nystatin (Nystop Powder -) 1 applic TP DAILY [facility] Last Admin: 08/17/17 10:23 Dose: 1 applic Oxycodone HCl (Roxicodone -) 10 mg PO Q4H PRN PRN Reason: PAIN LEVEL 1-5 Last Admin: 08/18/17 06:47 Dose: 10 mg Rivaroxaban (Xarelto -) 15 mg PO DAILY@1800 [facility] Last Admin: 08/17/17 17:37 Dose: 15 mg Silver Sulfadiazine (Silvadene -) 1 applic TP BID [facility] Last Admin: 08/17/17 21:39 Dose: 1 applic Tamsulosin HCl (Flomax -) 0.4 mg PO DAILY@0830 [facility] Last Admin: 08/17/17 10:19 Dose: 0.4 mg - Objective Vital Signs: Vital Signs Temperature 97.2 F L 08/17/17 22:00 Pulse Rate 72 08/17/17 22:00 Respiratory Rate 19 08/17/17 22:00 Blood Pressure 109/60 08/17/17 22:00 O2 Sat by Pulse Oximetry (%) 98 08/17/17 01:42 Constitutional: Yes: Anxious, Mild Distress Eyes: Yes: Conjunctiva Clear, EOM Intact HENT: Yes: Atraumatic, Normocephalic. No: Drooling Neck: Yes: Supple, Trachea Midline. No: Lymphadenopathy Cardiovascular: Yes: Pulse Irregular. No: Bradycardia, Tachycardia Respiratory: Yes: Diminished (b/b RALES AT THE BASES) Gastrointestinal: Yes: Abdomen, Obese, Other (LEFT ABDOMINAL INDURATION-? CONSTIPATION) ...Rectal Exam: Yes: Deferred Genitourinary: Yes: Boyle Present Breast(s): Yes: WNL Musculoskeletal: No: Joint Stiffness, Joint Swelling Extremities: Yes: Other (LEFT ANKLE EXTERNAL FIXATION). No: Calf Tenderness, Cold Edema: Yes Edema: LLE: 2+, RLE: 2+ Peripheral Pulses WNL: No Integumentary: Yes: Rash (CANDIDAL), Venous Stasis Changes, Other (RIGHT le WOUND AFTER YESTERDAY INJURY PROBABLY FROM TURNING IN BED) Wound/Incision: Yes: Clean/Dry, Well Approximated Neurological: Yes: Alert, Oriented. No: Aphasia, Seizure ...Motor Strength: WNL Psychiatric: Yes: Alert, Oriented, Agitated (OCCASIONALLY). No: Suicidal Ideation Labs: CBC, BMP 08/15/17 06:00 INR, PTT INR 1.96 (0.82-1.09) H 08/08/17 05:34 Problem List - Problems (1) Acute renal insufficiency Assessment/Plan: Potassium improved. Avoid UVALDO and ARB. Follow renal fx. dR FREED CONSULT APPRECIATED. Code(s): N28.9 - DISORDER OF KIDNEY AND URETER, UNSPECIFIED (2) Atrial fibrillation Assessment/Plan: Continue Heparin IV, VR control. Code(s): I48.91 - UNSPECIFIED ATRIAL FIBRILLATION Qualifiers: Atrial fibrillation type: chronic Qualified Code(s): I48.2 - Chronic atrial fibrillation (3) BPH (benign prostatic hyperplasia) Assessment/Plan: Continue Boyle, Flomax as per Dr Ivy Code(s): N40.0 - BENIGN PROSTATIC HYPERPLASIA WITHOUT LOWER URINRY TRACT SYMP (4) CHF (congestive heart failure) Assessment/Plan: PO Lasix , Follow edema, UA output Code(s): I50.9 - HEART FAILURE, UNSPECIFIED Qualifiers: Heart failure type: unspecified Heart failure chronicity: acute on chronic Qualified Code(s): I50.9 - Heart failure, unspecified (5) Accident due to mechanical fall without injury Assessment/Plan: ortho f/u PT Follow x-rays Code(s): W19.XXXA - UNSPECIFIED FALL, INITIAL ENCOUNTER Qualifiers: Encounter type: subsequent encounter Qualified Code(s): W19.XXXD - Unspecified fall, subsequent encounter (6) Severe pain Assessment/Plan: Receiving Oxycodone every 4 hrs Code(s): R52 - PAIN, UNSPECIFIED (7) Urinary (tract) obstruction Assessment/Plan: Last night after Boyle out-urine retention Spoke to . Will ask F/u Code(s): N13.9 - OBSTRUCTIVE AND REFLUX UROPATHY, UNSPECIFIED (8) Unspecified open wound, right ankle, initial encounter Assessment/Plan: Start Silvadene cream and wound care consult of Dr Gotti. Code(s): S91.001A - UNSPECIFIED OPEN WOUND, RIGHT ANKLE, INITIAL ENCOUNTER (9) Constipation by delayed colonic transit Assessment/Plan: wILL START rOLISTOR S/C gi CONSULT RE SEVERE CONSTIPATION. Code(s): K59.01 - SLOW TRANSIT CONSTIPATION (10) Diabetes 1.5, managed as type 1 Assessment/Plan: lOW bgm, POOR po iNTAKE, kasandra/ckd-WILL D/C lEVEMIR AT THIS POINT AND OBSERVE. Code(s): E10.9 - TYPE 1 DIABETES MELLITUS WITHOUT COMPLICATIONS
[2017-08-18] MEDS: ALBUTEROL SO4 2.5/IPRATROPIUM 0.5 INH SOL 3 ML VIAL.NEB. NEB SCH ×3 (08:40→20:50)
[2017-08-18] MEDS ORDERED: Methylnaltrexone Bromide 12 MG/0.6 ML KIT SQ SCH (10:00)
[2017-08-18] MEDS: ASPIRIN 81 MG CHEWABLE TABLETS PO SCH (10:32)
[2017-08-18] MEDS: MUPIROCIN 2% TOPICAL OINTMENT 22 GM TUBE TP SCH (10:32)
[2017-08-18] MEDS: BISACODYL 5 MG TABLET.DR (FP) PO SCH (10:32)
[2017-08-18] MEDS: TAMSULOSIN HCL 0.4 MG CAP.ER.24H (FP) PO SCH (10:32)
[2017-08-18] MEDS: metroNIDAZOLE 0.75% TOPICAL GEL 45 GM TUBE TP SCH ×2 (10:33→21:39)
[2017-08-18] MEDS: NYSTATIN POWDER 100,000 UNITS/GM - 15 GM TOPICAL POWDER TP SCH (10:33)
[2017-08-18] MEDS: COLLAGENASE CLOSTRIDIUM HIST. 30 GRAMS TUBE TP SCH (10:34)
[2017-08-18] MEDS: SILVER SULFADIAZINE 1% TOP CREAM 50 GM JAR TP SCH ×2 (10:34→21:39)
[2017-08-18] MEDS: ATENOLOL 50 MG TABLET (FP) PO SCH ×2 (10:35→21:40)
--- NOTE | 2017-08-18 12:42 | CON.GI ---
Consult Consult Specialty:: Gastroenterology Referred by:: Dr. Hudson Reason for Consultation:: Constipation - History of Present Illness Chief Complaint: Constipation for the past week History of Present Illness: Constipation since suffering LLE compound [id number] underwent surgery for a left open bimalleolar ankle fracture with dislocation on 07/22/[address] Thayer. He is bedridden since then. He has not moved his bowels for the past week. He denies any previous constipation problems. He had an EGD and a colonoscopy with ak on 09/21/14 when two sessile rectal polyps were removed which proved to be rectal prolapse. The EGD revealed mild gastritis. 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 Cardio/Vascular: Yes: AFIB, CAD (coronary stents x 2), CHF (tolicDias), HTN, Hyperlipdemia, Pulmonary Hypertension Pulmonary: Yes: Pulmonary Embolus, Sleep Apnea, Other Gastrointestinal: Yes: Constipation, Gastritis, Other (rectal prolapse) Hepatobiliary: Yes: Cholelithiasis Renal/: Yes: Renal Inusuff (stage 3) Infectious Disease: Yes: Other (RLE cellulitis/ infected LE ulcers ) Psych: Yes: Depression Musculoskeletal: Yes: Chronic low back pain Rheumatology: Yes: Gout Endocrine: Yes: Diabetes Mellitus, Hypothyroidism - Past Surgical History Past Surgical History: Yes: Colonoscopy, Stent, Upper Endoscopy Additional Surgical History: LLE external fixation. 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 [Santyl] 1 applic TP DAILY 08/06/17 Diphenhydramine HCl [Benadryl -] 50 mg PO DAILY 08/06/17 Febuxostat [Uloric -] 40 mg PO DAILY 08/06/17 Furosemide [Lasix] 80 mg PO BID 08/06/17 Glipizide 10 mg PO BID 08/06/17 Insulin (Novolog) [Novolog] 0 units SQ AC 08/06/17 Insulin Glargine,Hum.rec.anlog [Lantus] 80 unit SQ HS 08/06/17 Ipratropium/Albuterol Sulfate [Iprat-Albut 0.5-3(2.5) mg/3 ml] 3 ml IH Q6H 08/06 Levothyroxine [Synthroid -] 100 mcg PO DAILY 08/06/17 Linaclotide [Linzess] 290 mcg PO DAILY 08/06/17 Liraglutide [Victoza -] 1.8 mg SQ DAILY 08/06/17 Mupirocin Ointment [Bactroban] 1 applic TP DAILY 08/06/17 Oxycodone HCl 10 mg PO Q4H PRN 08/06/17 Oxycodone HCl/Acetaminophen [Percocet 5-325 mg Tablet] 2 tab PO HS 08/06/17 Polyethylene Glycol 3350 [Miralax (For Daily Use) -] 17 gm PO BID 08/06/17 Pramoxine HCl/Calamine [Calamine Medicated Lotion] 177 ml TP DAILY 08/06/17 Rivaroxaban [Xarelto -] 15 mg PO DAILY 08/06/17 Vancomycin HCl 1 gm IV DAILY 08/06/17 metroNIDAZOLE 0.75% GEL [Metrogel 0.75% Gel -] 1 applic TP BID 08/06/17 Family Disease History - Family Disease History Family Disease History: Diabetes: Mother (peripheral vascular disease), Heart Disease: Father (lived to 82), CA: Brother (gastric cancer) Review of Systems - Review of Systems Constitutional: reports: Loss of Appetite, Malaise HENT: reports: No Symptoms Neck: reports: No Symptoms Cardiovascular: reports: No Symptoms Respiratory: reports: Exercise Intolerance Gastrointestinal: reports: Abdominal Pain, Constipation Musculoskeletal: reports: Back Pain, Extremity Pain, Joint Pain Neurological: reports: Other (bedrideen) Psychiatric: reports: Depression Physical Exam-GI Vital Signs: Vital Signs Temperature 97.2 F L 08/17/17 22:00 Pulse Rate 82 08/18/17 10:00 Respiratory Rate 20 08/18/17 10:00 Blood Pressure 100/56 08/18/17 10:00 O2 Sat by Pulse Oximetry (%) 94 L 08/18/17 09:00 CBC,CMP WBC 8.0 K/mm3 (4.0-10.0) D 08/15/17 06:00 RBC 3.14 M/mm3 (4.00-5.60) L 08/15/17 06:00 Hgb 9.5 GM/dL (11.7-16.9) L 08/15/17 06:00 Hct 30.1 % (35.4-49) L 08/15/17 06:00 MCV 96.0 fl (80-96) 08/15/17 06:00 MCH 30.3 pg (25.7-33.7) 08/15/17 06:00 MCHC 31.6 g/dl (32.0-35.9) L 08/15/17 06:00 RDW 17.5 % (11.9-15.9) H 08/15/17 06:00 Plt Count 233 K/MM3 (134-434) 08/15/17 06:00 MPV 8.1 fl (7.5-11.1) 08/15/17 06:00 Neutrophils % 70.3 % (42.8-82.8) 08/07/17 05:50 Lymphocytes % 15.3 % (8-40) D 08/07/17 05:50 Monocytes % 9.2 % (3.8-10.2) 08/07/17 05:50 Eosinophils % 4.5 % (0-4.5) 08/07/17 05:50 Basophils % 0.7 % (0-2.0) 08/07/17 05:50 Sodium 140 mmol/L (136-145) 08/18/17 07:25 Potassium 4.5 mmol/L (3.5-5.1) 08/18/17 07:25 Chloride 103 mmol/L (98-107) 08/18/17 07:25 Carbon Dioxide 29 mmol/L (21-32) 08/18/17 07:25 Anion Gap 8 (8-16) 08/18/17 07:25 BUN 82 mg/dL (7-18) H 08/18/17 07:25 Creatinine 2.0 mg/dL (0.7-1.3) H 08/18/17 07:25 Creat Clearance w eGFR 34.03 (>60) 08/18/17 07:25 POC Glucometer 72 UNITS (80-120) 08/18/17 06:06 Random Glucose 53 mg/dL (74-106) L D 08/18/17 07:25 Calcium 8.1 mg/dL (8.5-10.1) L 08/18/17 07:25 Phosphorus 4.7 mg/dL (2.5-4.9) D 08/07/17 05:50 Magnesium 2.0 mg/dL (1.8-2.4) 08/07/17 05:50 Iron 34 ug/dL (38-169) L 08/08/17 05:34 TIBC 300 ug/dL (250-450) 08/08/17 05:34 Iron Saturation 11 % (15-55) L 08/08/17 05:34 Ferritin 25.672 ng/ml (16.4-293.9) 08/08/17 05:34 Total Bilirubin 0.7 mg/dL (0.2-1.0) 08/18/17 07:25 AST 19 U/L (15-37) D 08/18/17 07:25 ALT 15 U/L (12-78) 08/18/17 07:25 Alkaline Phosphatase 98 U/L (45-117) D 08/18/17 07:25 Creatine Kinase 27 IU/L (39-308) L 08/06/17 18:51 Troponin I 0.03 ng/ml (0.00-0.05) 08/06/17 18:51 B-Natriuretic Peptide 6898.40 pg/ml (5-125) H 08/09/17 05:48 Total Protein 7.1 g/dl (6.4-8.2) 08/18/17 07:25 Albumin 2.6 g/dl (3.4-5.0) L 08/18/17 07:25 Vitamin B12 655 pg/ml (180-914) 08/09/17 05:48 Serum Folate 8 ng/ml (3.1-17.5) 08/09/17 05:48 Current Medications Generic Name Dose Route Start Last Admin Trade Name Freq PRN Reason Stop Dose Admin Acetaminophen 650 mg 08/07/17 22:00 08/17/17 21:37 Tylenol - PO 650 mg HS NEIL Administration Al Hydroxide/Mg Hydroxide 30 ml 08/17/17 12:00 Mylanta Oral Suspension - PO Q6H PRN DYSPEPSIA Albuterol Sulfate 1 amp 08/17/17 10:47 08/18/17 06:37 Ventolin 0.083% Nebulizer Soln - NEB 1 amp Q4H PRN Administration SHORT OF BREATH/WHEEZING Albuterol/Ipratropium 1 amp 08/17/17 14:00 08/18/17 08:40 Duoneb - NEB 1 amp RTID NEIL Administration Aspirin 81 mg 08/11/17 10:00 08/18/17 10:32 Asa - PO 81 mg DAILY NEIL Administration Atenolol 100 mg 08/07/17 13:35 08/18/17 10:35 Tenormin - PO 100 mg BID NEIL Administration Atorvastatin Calcium 80 mg 08/07/17 22:00 08/17/17 21:37 Lipitor - PO 80 mg HS NEIL Administration Bisacodyl 10 mg 08/07/17 10:00 08/18/17 10:32 Dulcolax - PO 10 mg DAILY NEIL Administration Bisacodyl 10 mg 08/15/17 17:44 Dulcolax Suppository - RC PRN PRN CONSTIPATION Collagenase 1 applic 08/07/17 10:00 08/18/17 10:34 Santyl - TP 1 applic DAILY NEIL Administration Docusate Sodium 100 mg 08/07/17 13:45 08/18/17 06:41 Colace - PO 100 mg TID NEIL Administration Furosemide 80 mg 08/18/17 14:00 Lasix - PO BID@0600,1400 NEIL Insulin Aspart 1 vial 08/07/17 07:00 08/18/17 12:11 Novolog Vial Sliding Scale - SQ Not Given ACHS NEIL Protocol Lactulose 20 gm 08/18/17 14:00 Cephulac (Oral Use) PO TID NEIL Levothyroxine Sodium 100 mcg 08/07/17 07:00 08/18/17 06:41 Synthroid - PO 100 mcg DAILY@0700 NEIL Administration Methylnaltrexone [place] 8 mg 08/18/17 10:00 08/18/17 10:34 Relistor - SQ 8 mg DAILY NEIL Administration Metronidazole 1 applic 08/07/17 10:00 08/18/17 10:33 Metrogel 0.75% Gel - TP 1 applic BID NEIL Administration Mupirocin 1 applic 08/07/17 10:00 08/18/17 10:32 Bactroban 2% Ointment - TP 1 applic DAILY NEIL Administration Nystatin 1 applic 08/11/17 10:00 08/18/17 10:33 Nystop Powder - TP 1 applic DAILY NEIL Administration Oxycodone HCl 10 mg 08/13/17 18:18 08/18/17 11:39 Roxicodone - PO 10 mg Q4H PRN Administration PAIN LEVEL 1-5 Rivaroxaban 15 mg 08/16/17 18:00 08/17/17 17:37 Xarelto - PO 15 mg DAILY@1800 NEIL Administration Silver Sulfadiazine 1 applic 08/17/17 12:00 08/18/17 10:34 Silvadene - TP 1 applic BID NEIL Administration Tamsulosin HCl 0.4 mg 08/07/17 11:45 08/18/17 10:32 Flomax - PO 0.4 mg DAILY@0830 NEIL Administration Constitutional: Yes: Anxious, Other (Morbidly obese) Eyes: Yes: Conjunctiva Clear HENT: Yes: Atraumatic Neck: Yes: Supple Cardiovascular: Yes: Pulse Irregular Respiratory: Yes: CTA Bilaterally Gastrointestinal Inspection: Yes: Distention ...Auscultate: Yes: Hypoactive Bowel Sounds ...Palpate: Yes: Soft, Other (nontender) ...Percussion: Yes: Tympanitic ...Rectal Exam: Yes: Deferred (unable to position patient) Labs: CBC, BMP 08/15/17 06:00 08/18/17 07:25 INR, PTT INR 1.96 (0.82-1.09) H 08/08/17 05:34 Problem List - Problems (1) Constipation by delayed colonic transit Assessment/Plan: Constipation reflects his bedridden state compounded by narcotic analgesics. Will given Miralax TID and start Relistor. Code(s): K59.01 - SLOW TRANSIT CONSTIPATION (2) Rectal mucosa prolapse Assessment/Plan: Rectal polyps actually proved to reflect this prolapse rather than neoplastic tissue. Code(s): K62.3 - RECTAL PROLAPSE
--- NOTE | 2017-08-18 12:55 | PN ---
Progress Note, Physician History of Present Illness: PULMONARY ALERT,STILL C/O SOB,CURRENTLY ON CPAP - Current Medication List Current Medications: Active Medications Acetaminophen (Tylenol -) 650 mg PO HS [facility] Last Admin: 08/17/17 21:37 Dose: 650 mg Al Hydroxide/Mg Hydroxide (Mylanta Oral Suspension -) 30 ml PO Q6H PRN PRN Reason: DYSPEPSIA Albuterol Sulfate (Ventolin 0.083% Nebulizer Soln -) 1 amp NEB Q4H PRN PRN Reason: SHORT OF BREATH/WHEEZING Last Admin: 08/18/17 06:37 Dose: 1 amp Albuterol/Ipratropium (Duoneb -) 1 amp NEB RTID [facility] Last Admin: 08/18/17 08:40 Dose: 1 amp Aspirin (Asa -) 81 mg PO DAILY [facility] Last Admin: 08/18/17 10:32 Dose: 81 mg Atenolol (Tenormin -) 100 mg PO BID [facility] Last Admin: 08/18/17 10:35 Dose: 100 mg Atorvastatin Calcium (Lipitor -) 80 mg PO HS [facility] Last Admin: 08/17/17 21:37 Dose: 80 mg Bisacodyl (Dulcolax -) 10 mg PO DAILY [facility] Last Admin: 08/18/17 10:32 Dose: 10 mg Bisacodyl (Dulcolax Suppository -) 10 mg RC PRN PRN PRN Reason: CONSTIPATION Collagenase (Santyl -) 1 applic TP DAILY [facility] Last Admin: 08/18/17 10:34 Dose: 1 applic Docusate Sodium (Colace -) 100 mg PO TID [facility] Last Admin: 08/18/17 06:41 Dose: 100 mg Furosemide (Lasix -) 80 mg PO BID@0600,1400 [facility] Insulin Aspart (Novolog Vial Sliding Scale -) 1 vial SQ ACHS [facility]; Protocol Last Admin: 08/18/17 12:11 Dose: Not Given Lactulose (Cephulac (Oral Use)) 20 gm PO TID [facility] Levothyroxine Sodium (Synthroid -) 100 mcg PO DAILY@0700 [facility] Last Admin: 08/18/17 06:41 Dose: 100 mcg Methylnaltrexone [place] (Relistor -) 8 mg SQ DAILY [facility] Last Admin: 08/18/17 10:34 Dose: 8 mg Metronidazole (Metrogel 0.75% Gel -) 1 applic TP BID [facility] Last Admin: 08/18/17 10:33 Dose: 1 applic Mupirocin (Bactroban 2% Ointment -) 1 applic TP DAILY [facility] Last Admin: 08/18/17 10:32 Dose: 1 applic Nystatin (Nystop Powder -) 1 applic TP DAILY [facility] Last Admin: 08/18/17 10:33 Dose: 1 applic Oxycodone HCl (Roxicodone -) 10 mg PO Q4H PRN PRN Reason: PAIN LEVEL 1-5 Last Admin: 08/18/17 11:39 Dose: 10 mg Rivaroxaban (Xarelto -) 15 mg PO DAILY@1800 [facility] Last Admin: 08/17/17 17:37 Dose: 15 mg Silver Sulfadiazine (Silvadene -) 1 applic TP BID [facility] Last Admin: 08/18/17 10:34 Dose: 1 applic Tamsulosin HCl (Flomax -) 0.4 mg PO DAILY@0830 [facility] Last Admin: 08/18/17 10:32 Dose: 0.4 mg - Objective Vital Signs: Vital Signs Temperature 97.2 F L 08/17/17 22:00 Pulse Rate 82 08/18/17 10:00 Respiratory Rate 20 08/18/17 10:00 Blood Pressure 100/56 08/18/17 10:00 O2 Sat by Pulse Oximetry (%) 94 L 08/18/17 09:00 Constitutional: Yes: Calm, Obese Eyes: Yes: WNL HENT: Yes: WNL Neck: Yes: WNL Cardiovascular: Yes: Pulse Irregular, S1, S2 Respiratory: Yes: Diminished Gastrointestinal: Yes: Normal Bowel Sounds, Soft, Abdomen, Obese Extremities: Yes: WNL Edema: Yes Labs: CBC, BMP 08/15/17 06:00 08/18/17 07:25 INR, PTT INR 1.96 (0.82-1.09) H 08/08/17 05:34 Assessment/Plan Problem List - Problems (1) Acute on chronic diastolic (congestive) heart failure Code(s): I50.33 - ACUTE ON CHRONIC DIASTOLIC (CONGESTIVE) HEART FAILURE (2) Acute on chronic renal failure Code(s): N17.9 - ACUTE KIDNEY FAILURE, UNSPECIFIED; N18.9 - CHRONIC KIDNEY DISEASE, UNSPECIFIED (3) Atrial fibrillation Code(s): I48.91 - UNSPECIFIED ATRIAL FIBRILLATION Qualifiers: Atrial fibrillation type: chronic Qualified Code(s): I48.2 - Chronic atrial fibrillation (4) CAD (coronary artery disease) Code(s): I25.10 - ATHSCL HEART DISEASE OF [place] CORONARY ARTERY W/O ANG PCTRS (5) COPD (chronic obstructive pulmonary disease) Code(s): J44.9 - CHRONIC OBSTRUCTIVE PULMONARY DISEASE, UNSPECIFIED (6) Diabetes Code(s): E11.9 - TYPE 2 DIABETES MELLITUS WITHOUT COMPLICATIONS (7) Obesities, morbid Code(s): E66.01 - MORBID (SEVERE) OBESITY DUE TO EXCESS CALORIES (8) Pulmonary HTN Code(s): I27.20 - PULMONARY HYPERTENSION, UNSPECIFIED (9) Sleep apnea Code(s): G47.30 - SLEEP APNEA, UNSPECIFIED (10) Volume overload Code(s): E87.70 - FLUID OVERLOAD, UNSPECIFIED Assessment/Plan Acute on Chronic Diastolic Heart Failure Acute on Chronic Renal Failure Volume Overload Pulmonary HTN Atrial Fibrillation CAD COPD Morbid Obesity ASHLEY/OHS - lasix IV if BP tolerates - monitor urine output, creatinine - inhaled bronchodilators - O2 to keep SpO2 >90% - BiPAP to assist in work of breathing - rate controlled with atenolol - anticoagulation DR MACHADO
[2017-08-18] MEDS: FUROSEMIDE 40 MG TABLET (FP) PO SCH (13:37)
[2017-08-18] MEDS: LACTULOSE 20 GM/30 ML UDC (FOR ORAL USE ONLY) PO SCH ×2 (13:37→21:37)
--- NOTE | 2017-08-18 13:41 | PN ---
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 - Current Medication List Current Medications: Active Medications Acetaminophen (Tylenol -) 650 mg PO HS [facility] Last Admin: 08/17/17 21:37 Dose: 650 mg Al Hydroxide/Mg Hydroxide (Mylanta Oral Suspension -) 30 ml PO Q6H PRN PRN Reason: DYSPEPSIA Albuterol Sulfate (Ventolin 0.083% Nebulizer Soln -) 1 amp NEB Q4H PRN PRN Reason: SHORT OF BREATH/WHEEZING Last Admin: 08/18/17 06:37 Dose: 1 amp Albuterol/Ipratropium (Duoneb -) 1 amp NEB RTID [facility] Last Admin: 08/18/17 08:40 Dose: 1 amp Aspirin (Asa -) 81 mg PO DAILY [facility] Last Admin: 08/18/17 10:32 Dose: 81 mg Atenolol (Tenormin -) 100 mg PO BID [facility] Last Admin: 08/18/17 10:35 Dose: 100 mg Atorvastatin Calcium (Lipitor -) 80 mg PO [facility] Last Admin: 08/17/17 21:37 Dose: 80 mg Bisacodyl (Dulcolax -) 10 mg PO DAILY [facility] Last Admin: 08/18/17 10:32 Dose: 10 mg Bisacodyl (Dulcolax Suppository -) 10 mg RC PRN PRN PRN Reason: CONSTIPATION Collagenase (Santyl -) 1 applic TP DAILY [facility] Last Admin: 08/18/17 10:34 Dose: 1 applic Docusate Sodium (Colace -) 100 mg PO TID [facility] Last Admin: 08/18/17 13:37 Dose: 100 mg Furosemide (Lasix -) 80 mg PO BID@0600,1400 [facility] Last Admin: 08/18/17 13:37 Dose: 80 mg Insulin Aspart (Novolog Vial Sliding Scale -) 1 vial SQ ACHS [facility]; Protocol Last Admin: 08/18/17 12:11 Dose: Not Given Lactulose (Cephulac (Oral Use)) 20 gm PO TID [facility] Last Admin: 08/18/17 13:37 Dose: 20 gm Levothyroxine Sodium (Synthroid -) 100 mcg PO DAILY@0700 [facility] Last Admin: 08/18/17 06:41 Dose: 100 mcg Methylnaltrexone [place] (Relistor -) 8 mg SQ DAILY [facility] Last Admin: 08/18/17 10:34 Dose: 8 mg Metronidazole (Metrogel 0.75% Gel -) 1 applic TP BID [facility] Last Admin: 08/18/17 10:33 Dose: 1 applic Mupirocin (Bactroban 2% Ointment -) 1 applic TP DAILY [facility] Last Admin: 08/18/17 10:32 Dose: 1 applic Nystatin (Nystop Powder -) 1 applic TP DAILY [facility] Last Admin: 08/18/17 10:33 Dose: 1 applic Oxycodone HCl (Roxicodone -) 10 mg PO Q4H PRN PRN Reason: PAIN LEVEL 1-5 Last Admin: 08/18/17 11:39 Dose: 10 mg Rivaroxaban (Xarelto -) 15 mg PO DAILY@1800 [facility] Last Admin: 08/17/17 17:37 Dose: 15 mg Silver Sulfadiazine (Silvadene -) 1 applic TP BID [facility] Last Admin: 08/18/17 10:34 Dose: 1 applic Tamsulosin HCl (Flomax -) 0.4 mg PO DAILY@0830 [facility] Last Admin: 08/18/17 10:32 Dose: 0.4 mg - Objective Vital Signs: Vital Signs Temperature 97.2 F L 08/17/17 22:00 Pulse Rate 82 08/18/17 10:00 Respiratory Rate 20 08/18/17 10:00 Blood Pressure 100/56 08/18/17 10:00 O2 Sat by Pulse Oximetry (%) 94 L 08/18/17 09:00 Constitutional: Yes: No Distress, Calm Cardiovascular: Yes: Regular Rate and Rhythm Respiratory: Yes: Regular, On BiPap, On Nasal O2 Gastrointestinal: Yes: Normal Bowel Sounds, Soft Musculoskeletal: Yes: Other Extremities: Yes: Other Edema: LLE: 1+, RLE: 1+ Neurological: Yes: Alert, Oriented Psychiatric: Yes: Alert, Oriented Labs: CBC, BMP 08/15/17 06:00 08/18/17 07:25 INR, PTT INR 1.96 (0.82-1.09) H 08/08/17 05:34 Assessment/Plan Problem List - Problems (1) Acute renal insufficiency Code(s): N28.9 - DISORDER OF KIDNEY AND URETER, UNSPECIFIED (2) Atrial fibrillation Code(s): I48.91 - UNSPECIFIED ATRIAL FIBRILLATION Qualifiers: Atrial fibrillation type: chronic Qualified Code(s): I48.2 - Chronic atrial fibrillation (3) BPH (benign prostatic hyperplasia) Code(s): N40.0 - BENIGN PROSTATIC HYPERPLASIA WITHOUT LOWER URINRY TRACT SYMP (4) CHF (congestive heart failure) Code(s): I50.9 - HEART FAILURE, UNSPECIFIED Qualifiers: Heart failure type: unspecified Heart failure chronicity: acute on chronic Qualified Code(s): I50.9 - Heart failure, unspecified (5) Acute renal failure (ARF) Code(s): N17.9 - ACUTE KIDNEY FAILURE, UNSPECIFIED (6) CAD (coronary artery disease) Code(s): I25.10 - ATHSCL HEART DISEASE OF [place] CORONARY ARTERY W/O ANG PCTRS (7) COPD (chronic obstructive pulmonary disease) Code(s): J44.9 - CHRONIC OBSTRUCTIVE PULMONARY DISEASE, UNSPECIFIED (8) Cellulitis of right leg Code(s): L03.115 - CELLULITIS OF RIGHT LOWER LIMB (9) Diabetes Code(s): E11.9 - TYPE 2 DIABETES MELLITUS WITHOUT COMPLICATIONS (10) Dyslipidemia Code(s): E78.5 - HYPERLIPIDEMIA, UNSPECIFIED (11) Obesities, morbid Code(s): E66.01 - MORBID (SEVERE) OBESITY DUE TO EXCESS CALORIES (12) Open left ankle fracture Code(s): S82.892B - OTH FRACTURE OF LEFT LOWER LEG, INIT FOR OPN FX TYPE I/2 Qualifiers: Encounter type: initial encounter (13) Sleep apnea Code(s): G47.30 - SLEEP APNEA, UNSPECIFIED (14) Venous (peripheral) insufficiency Code(s): I87.2 - VENOUS INSUFFICIENCY (CHRONIC) (PERIPHERAL) (15) Venous ulcer Code(s): I87.8 - OTHER SPECIFIED DISORDERS OF VEINS Assessment/Plan 61 y.o. male with PMH of DM, morbid obesity, CAD, CHF, AFIB, CKD, BPH, LLE compound fracture s/p external fixation with hardware in place, RLE cellulitis, LE infected ulcers receiving IV antibiotics in [place] presenting with urinary retention, KRUNAL and generalized rash and elevated Vancomycin levels Hx of RLE cellulitis/LLE infected ulcers - appears to have improved Rash resolving KRUNAL on CKD Urinary retention plan continue to monitor care of the fracture resp support diet no abx further plan awaited
--- NOTE | 2017-08-18 15:29 | PN ---
Progress Note, Physician History of Present Illness: Pt seen and examined at bedside. He is awake and alert. He was evaluated by GI for constipation. - Current Medication List Current Medications: Active Medications Acetaminophen (Tylenol -) 650 mg PO HS [facility] Last Admin: 08/17/17 21:37 Dose: 650 mg Al Hydroxide/Mg Hydroxide (Mylanta Oral Suspension -) 30 ml PO Q6H PRN PRN Reason: DYSPEPSIA Albuterol Sulfate (Ventolin 0.083% Nebulizer Soln -) 1 amp NEB Q4H PRN PRN Reason: SHORT OF BREATH/WHEEZING Last Admin: 08/18/17 06:37 Dose: 1 amp Albuterol/Ipratropium (Duoneb -) 1 amp NEB RTID [facility] Last Admin: 08/18/17 14:26 Dose: 1 amp Aspirin (Asa -) 81 mg PO DAILY [facility] Last Admin: 08/18/17 10:32 Dose: 81 mg Atenolol (Tenormin -) 100 mg PO BID [facility] Last Admin: 08/18/17 10:35 Dose: 100 mg Atorvastatin Calcium (Lipitor -) 80 mg PO HS [facility] Last Admin: 08/17/17 21:37 Dose: 80 mg Bisacodyl (Dulcolax -) 10 mg PO DAILY [facility] Last Admin: 08/18/17 10:32 Dose: 10 mg Bisacodyl (Dulcolax Suppository -) 10 mg RC PRN PRN PRN Reason: CONSTIPATION Collagenase (Santyl -) 1 applic TP DAILY [facility] Last Admin: 08/18/17 10:34 Dose: 1 applic Docusate Sodium (Colace -) 100 mg PO TID [facility] Last Admin: 08/18/17 13:37 Dose: 100 mg Furosemide (Lasix -) 80 mg PO BID@0600,1400 [facility] Last Admin: 08/18/17 13:37 Dose: 80 mg Insulin Aspart (Novolog Vial Sliding Scale -) 1 vial SQ ACHS [facility]; Protocol Last Admin: 08/18/17 12:11 Dose: Not Given Lactulose (Cephulac (Oral Use)) 20 gm PO TID [facility] Last Admin: 08/18/17 13:37 Dose: 20 gm Levothyroxine Sodium (Synthroid -) 100 mcg PO DAILY@0700 [facility] Last Admin: 08/18/17 06:41 Dose: 100 mcg Methylnaltrexone [place] (Relistor -) 8 mg SQ DAILY [facility] Last Admin: 08/18/17 10:34 Dose: 8 mg Metronidazole (Metrogel 0.75% Gel -) 1 applic TP BID [facility] Last Admin: 08/18/17 10:33 Dose: 1 applic Mupirocin (Bactroban 2% Ointment -) 1 applic TP DAILY [facility] Last Admin: 08/18/17 10:32 Dose: 1 applic Nystatin (Nystop Powder -) 1 applic TP DAILY [facility] Last Admin: 08/18/17 10:33 Dose: 1 applic Oxycodone HCl (Roxicodone -) 10 mg PO Q4H PRN PRN Reason: PAIN LEVEL 1-5 Last Admin: 08/18/17 11:39 Dose: 10 mg Rivaroxaban (Xarelto -) 15 mg PO DAILY@1800 [facility] Last Admin: 08/17/17 17:37 Dose: 15 mg Silver Sulfadiazine (Silvadene -) 1 applic TP BID [facility] Last Admin: 08/18/17 10:34 Dose: 1 applic Tamsulosin HCl (Flomax -) 0.4 mg PO DAILY@0830 [facility] Last Admin: 08/18/17 10:32 Dose: 0.4 mg - Objective Vital Signs: Vital Signs Temperature 98.3 F 08/18/17 14:00 Pulse Rate 76 08/18/17 14:00 Respiratory Rate 18 08/18/17 14:00 Blood Pressure 93/61 08/18/17 14:00 O2 Sat by Pulse Oximetry (%) 94 L 08/18/17 09:00 Constitutional: Yes: Calm Eyes: Yes: Conjunctiva Clear HENT: Yes: Atraumatic Neck: Yes: Supple Cardiovascular: Yes: S1, S2 Respiratory: Yes: CTA Bilaterally, Other (on cpap) Gastrointestinal: Yes: Soft, Abdomen, Obese Genitourinary: Yes: WNL Musculoskeletal: Yes: WNL Edema: Yes Edema: LLE: 1+, RLE: 1+ Neurological: Yes: Oriented Psychiatric: Yes: Oriented Labs: CBC, BMP 08/15/17 06:00 08/18/17 07:25 INR, PTT INR 1.96 (0.82-1.09) H 08/08/17 05:34 Problem List - Problems (1) Acute renal insufficiency Code(s): N28.9 - DISORDER OF KIDNEY AND URETER, UNSPECIFIED (2) Atrial fibrillation Code(s): I48.91 - UNSPECIFIED ATRIAL FIBRILLATION Qualifiers: Atrial fibrillation type: chronic Qualified Code(s): I48.2 - Chronic atrial fibrillation (3) BPH (benign prostatic hyperplasia) Code(s): N40.0 - BENIGN PROSTATIC HYPERPLASIA WITHOUT LOWER URINRY TRACT SYMP (4) CHF (congestive heart failure) Code(s): I50.9 - HEART FAILURE, UNSPECIFIED Qualifiers: Heart failure type: unspecified Heart failure chronicity: acute on chronic Qualified Code(s): I50.9 - Heart failure, unspecified (5) Acute renal failure (ARF) Code(s): N17.9 - ACUTE KIDNEY FAILURE, UNSPECIFIED (6) CAD (coronary artery disease) Code(s): I25.10 - ATHSCL HEART DISEASE OF [place] CORONARY ARTERY W/O ANG PCTRS (7) CKD (chronic kidney disease) Code(s): N18.9 - CHRONIC KIDNEY DISEASE, UNSPECIFIED (8) Cellulitis Code(s): L03.90 - CELLULITIS, UNSPECIFIED Assessment/Plan Current Medications Generic Name Dose Route Start Last Admin Trade Name Freq PRN Reason Stop Dose Admin Acetaminophen 650 mg 08/07/17 22:00 08/17/17 21:37 Tylenol - PO 650 mg HS NEIL Administration Al Hydroxide/Mg Hydroxide 30 ml 08/17/17 12:00 Mylanta Oral Suspension - PO Q6H PRN DYSPEPSIA Albuterol Sulfate 1 amp 08/17/17 10:47 08/18/17 06:37 Ventolin 0.083% Nebulizer Soln - NEB 1 amp Q4H PRN Administration SHORT OF BREATH/WHEEZING Albuterol/Ipratropium 1 amp 08/17/17 14:00 08/18/17 14:26 Duoneb - NEB 1 amp RTID NEIL Administration Aspirin 81 mg 08/11/17 10:00 08/18/17 10:32 Asa - PO 81 mg DAILY NEIL Administration Atenolol 100 mg 08/07/17 13:35 08/18/17 10:35 Tenormin - PO 100 mg BID NEIL Administration Atorvastatin Calcium 80 mg 08/07/17 22:00 08/17/17 21:37 Lipitor - PO 80 mg HS NEIL Administration Bisacodyl 10 mg 08/07/17 10:00 08/18/17 10:32 Dulcolax - PO 10 mg DAILY NEIL Administration Bisacodyl 10 mg 08/15/17 17:44 Dulcolax Suppository - RC PRN PRN CONSTIPATION Collagenase 1 applic 08/07/17 10:00 08/18/17 10:34 Santyl - TP 1 applic DAILY NEIL Administration Docusate Sodium 100 mg 08/07/17 13:45 08/18/17 13:37 Colace - PO 100 mg TID NEIL Administration Furosemide 80 mg 08/18/17 14:00 08/18/17 13:37 Lasix - PO 80 mg BID@0600,1400 NEIL Administration Insulin Aspart 1 vial 08/07/17 07:00 08/18/17 12:11 Novolog Vial Sliding Scale - SQ Not Given ACHS [facility] Protocol Lactulose 20 gm 08/18/17 14:00 08/18/17 13:37 Cephulac (Oral Use) PO 20 gm TID NEIL Administration Levothyroxine Sodium 100 mcg 08/07/17 07:00 08/18/17 06:41 Synthroid - PO 100 mcg DAILY@0700 NEIL Administration Methylnaltrexone [place] 8 mg 08/18/17 10:00 08/18/17 10:34 Relistor - SQ 8 mg DAILY NEIL Administration Metronidazole 1 applic 08/07/17 10:00 08/18/17 10:33 Metrogel 0.75% Gel - TP 1 applic BID NEIL Administration Mupirocin 1 applic 08/07/17 10:00 08/18/17 10:32 Bactroban 2% Ointment - TP 1 applic DAILY [facility]IL Administration Nystatin 1 applic 08/11/17 10:00 08/18/17 10:33 Nystop Powder - TP 1 applic DAILY [facility]IL Administration Oxycodone HCl 10 mg 08/13/17 18:18 08/18/17 11:39 Roxicodone - PO 10 mg Q4H PRN Administration PAIN LEVEL 1-5 Rivaroxaban 15 mg 08/16/17 18:00 08/17/17 17:37 Xarelto - PO 15 mg DAILY@1800 NEIL Administration Silver Sulfadiazine 1 applic 08/17/17 12:00 08/18/17 10:34 Silvadene - TP 1 applic BID NEIL Administration Tamsulosin HCl 0.4 mg 08/07/17 11:45 05/23/18 10:32 Flomax - PO 0.4 mg DAILY@0830 NEIL Administration Impression 1. CKD 2. KRUNAL 3. volume overload 4. morbid obesity 5. CAD 6. cellulitis 7. s/p fall 8. a-fib 9. DM 10. hypothyroidism 11. HLD 12. CHF 13. s/p leg fracture 14. hyperkalemia 15. constipation Plan - renal function is stable - cont lasix - avoid nephrotoxic agents - monitor renal function - will hold off jasmyne as he has had hyperkalemia on multiple occasions - renal diet
[2017-08-18] MEDS ORDERED: PT OWN MED DRAWER 7, Y5N ONE (16:46)
[2017-08-18] MEDS: RIVAROXABAN 15 MG TABLET PO SCH (17:12)
[2017-08-18] MEDS: ACETAMINOPHEN 325 MG TABLET (FP) PO SCH (21:37)
[2017-08-18] MEDS: ATORVASTATIN CA 80 MG TABLET (FP) PO SCH (21:38)
[2017-08-19] MEDS: oxyCODONE HCL 5 MG TABLET PO PRN ×3 (02:40→14:35)
[2017-08-19] MEDS: ALBUTEROL SO4 0.083% IH SOL 2.5 MG/3 ML VIAL.NEB. NEB PRN (04:10)
[2017-08-19] MEDS: DOCUSATE SODIUM 100 MG CAPSULE (FP) PO SCH ×3 (05:42→22:55)
[2017-08-19] MEDS: FUROSEMIDE 40 MG TABLET (FP) PO SCH ×2 (05:42→14:35)
[2017-08-19] MEDS: LACTULOSE 20 GM/30 ML UDC (FOR ORAL USE ONLY) PO SCH ×3 (05:42→23:02)
[2017-08-19] MEDS: LEVOTHYROXINE NA 100 MCG TABLET (FP) PO SCH (06:07)
[2017-08-19] MEDS: INSULIN SLIDING SCALE (NOVOLOG) 1 VIAL SQ SCH ×4 (06:07→22:58)
[2017-08-19] MEDS: ALBUTEROL SO4 2.5/IPRATROPIUM 0.5 INH SOL 3 ML VIAL.NEB. NEB SCH ×3 (07:25→20:38)
--- NOTE | 2017-08-19 07:29 | PN ---
Progress Note, Physician Chief Complaint: Still constipated, dr Lundy consult appreciated. Relistor started. Enjoyed pizza and Pepsi yesterday. C/o sacral pain, LE pain-now back on his back. History of Present Illness: Recent hospitalization for acute cellulitis RLE after fall [employer]. The patient sustained open left ankle fracture while at [facility] and had subsequent external fixation by Dr. Thayer Morbid obesity. ASHLEY. Bilateral PE. Pulmonary HTN-CTEPH , ASHLEY AND CLASS 2 PAH. CHF-mostly diastolic. ASHD. STEMI in 2016 with MICHAEL x2 placed at [place]. Chronic A.Fib-on a/c-Xarelto/ASA now. Gout. Gouty arthritis CKD 3 DM type 2. Chronic DVT Right thigh, Stasis ulcers, edema. Chronic wound right Ankle/dobbs-RX at [facility]-groing multiple organisms. - Current Medication List Current Medications: Active Medications Acetaminophen (Tylenol -) 650 mg PO HS [facility] Last Admin: 08/18/17 21:37 Dose: 650 mg Al Hydroxide/Mg Hydroxide (Mylanta Oral Suspension -) 30 ml PO Q6H PRN PRN Reason: DYSPEPSIA Albuterol Sulfate (Ventolin 0.083% Nebulizer Soln -) 1 amp NEB Q4H PRN PRN Reason: SHORT OF BREATH/WHEEZING Last Admin: 08/19/17 04:10 Dose: 1 amp Albuterol/Ipratropium (Duoneb -) 1 amp NEB RTID [facility] Last Admin: 08/18/17 20:50 Dose: 1 amp Aspirin (Asa -) 81 mg PO DAILY [facility] Last Admin: 08/18/17 10:32 Dose: 81 mg Atenolol (Tenormin -) 100 mg PO BID [facility] Last Admin: 08/18/17 21:40 Dose: 100 mg Atorvastatin Calcium (Lipitor -) 80 mg PO HS [facility] Last Admin: 08/18/17 21:38 Dose: 80 mg Bisacodyl (Dulcolax -) 10 mg PO DAILY [facility] Last Admin: 08/18/17 10:32 Dose: 10 mg Bisacodyl (Dulcolax Suppository -) 10 mg RC PRN PRN PRN Reason: CONSTIPATION Collagenase (Santyl -) 1 applic TP DAILY [facility] Last Admin: 08/18/17 10:34 Dose: 1 applic Docusate Sodium (Colace -) 100 mg PO TID [facility] Last Admin: 08/19/17 05:42 Dose: 100 mg Furosemide (Lasix -) 80 mg PO BID@0600,1400 [facility] Last Admin: 08/19/17 05:42 Dose: 80 mg Insulin Aspart (Novolog Vial Sliding Scale -) 1 vial SQ ACHS [facility]; Protocol Last Admin: 08/19/17 06:07 Dose: Not Given Lactulose (Cephulac (Oral Use)) 20 gm PO TID [facility] Last Admin: 08/19/17 05:42 Dose: 20 gm Levothyroxine Sodium (Synthroid -) 100 mcg PO DAILY@0700 [facility] Last Admin: 08/19/17 06:07 Dose: 100 mcg Methylnaltrexone [place] (Relistor -) 12 mg SQ DAILY [facility] Metronidazole (Metrogel 0.75% Gel -) 1 applic TP BID [facility] Last Admin: 08/18/17 21:39 Dose: 1 applic Mupirocin (Bactroban 2% Ointment -) 1 applic TP DAILY [facility] Last Admin: 08/18/17 10:32 Dose: 1 applic Nystatin (Nystop Powder -) 1 applic TP DAILY [facility] Last Admin: 08/18/17 10:33 Dose: 1 applic Oxycodone HCl (Roxicodone -) 10 mg PO Q4H PRN PRN Reason: PAIN LEVEL 1-5 Last Admin: 08/19/17 06:50 Dose: 10 mg Rivaroxaban (Xarelto -) 15 mg PO DAILY@1800 [facility] Last Admin: 08/18/17 17:12 Dose: 15 mg Silver Sulfadiazine (Silvadene -) 1 applic TP BID [facility] Last Admin: 08/18/17 21:39 Dose: 1 applic Tamsulosin HCl (Flomax -) 0.4 mg PO DAILY@0830 [facility] Last Admin: 08/18/17 10:32 Dose: 0.4 mg - Objective Vital Signs: Vital Signs Temperature 98.7 F 08/19/17 05:40 Pulse Rate 82 08/19/17 05:40 Respiratory Rate 21 08/19/17 05:40 Blood Pressure 111/83 08/19/17 05:40 O2 Sat by Pulse Oximetry (%) 95 08/18/17 20:05 Constitutional: Yes: Anxious, Mild Distress Eyes: Yes: Conjunctiva Clear, EOM Intact HENT: Yes: Atraumatic, Normocephalic Neck: Yes: Trachea Midline. No: Lymphadenopathy Cardiovascular: Yes: Pulse Irregular, S1, S2. No: JVD Respiratory: Yes: Regular, On BiPap, Rales (Few B/B) Gastrointestinal: Yes: Soft, Abdomen, Obese, Tenderness (Left low quadrant). No : Distention ...Rectal Exam: Yes: Deferred Genitourinary: Yes: Boyle Present. No: Anuria Breast(s): Yes: Gynecomastia Musculoskeletal: Yes: Back Pain Extremities: Yes: Other (Left external fixation. Minimal drainage from the wound , no erythema.). No: Calf Tenderness, Cold Wound/Incision: Yes: Other (Right ankle wound -no significant drainage, dry.) Labs: CBC, BMP 08/15/17 06:00 08/18/17 07:25 INR, PTT INR 1.96 (0.82-1.09) H 08/08/17 05:34 Problem List - Problems (1) Acute renal insufficiency Assessment/Plan: Potassium improved. Avoid UVALDO and ARB. Follow renal fx. dR FREED CONSULT APPRECIATED. Code(s): N28.9 - DISORDER OF KIDNEY AND URETER, UNSPECIFIED (2) Atrial fibrillation Assessment/Plan: Continue Heparin IV, VR control. Code(s): I48.91 - UNSPECIFIED ATRIAL FIBRILLATION Qualifiers: Atrial fibrillation type: chronic Qualified Code(s): I48.2 - Chronic atrial fibrillation (3) BPH (benign prostatic hyperplasia) Assessment/Plan: Continue Boyle, Flomax as per Dr Ivy Code(s): N40.0 - BENIGN PROSTATIC HYPERPLASIA WITHOUT LOWER URINRY TRACT SYMP (4) CHF (congestive heart failure) Assessment/Plan: PO Lasix , Follow edema, UA output Code(s): I50.9 - HEART FAILURE, UNSPECIFIED Qualifiers: Heart failure type: unspecified Heart failure chronicity: acute on chronic Qualified Code(s): I50.9 - Heart failure, unspecified (5) Accident due to mechanical fall without injury Assessment/Plan: ortho f/u PT Follow x-rays Code(s): W19.XXXA - UNSPECIFIED FALL, INITIAL ENCOUNTER Qualifiers: Encounter type: subsequent encounter Qualified Code(s): W19.XXXD - Unspecified fall, subsequent encounter (6) Severe pain Assessment/Plan: Receiving Oxycodone every 4 hrs Code(s): R52 - PAIN, UNSPECIFIED (7) Urinary (tract) obstruction Assessment/Plan: Last night after Boyle out-urine retention Spoke to . Will ask F/u Code(s): N13.9 - OBSTRUCTIVE AND REFLUX UROPATHY, UNSPECIFIED (8) Unspecified open wound, right ankle, initial encounter Assessment/Plan: Continue wound care Code(s): S91.001A - UNSPECIFIED OPEN WOUND, RIGHT ANKLE, INITIAL ENCOUNTER (9) Constipation by delayed colonic transit Assessment/Plan: Continue Rolistor, Lactulose, Dulcolax Code(s): K59.01 - SLOW TRANSIT CONSTIPATION (10) Diabetes 1.5, managed as type 1 Assessment/Plan: Follow BGM, restart 10 units Levemir QD Code(s): E10.9 - TYPE 1 DIABETES MELLITUS WITHOUT COMPLICATIONS
[2017-08-19] MEDS: TAMSULOSIN HCL 0.4 MG CAP.ER.24H (FP) PO SCH (08:04)
[2017-08-19] MEDS: BISACODYL 5 MG TABLET.DR (FP) PO SCH (09:18)
[2017-08-19] MEDS: ATENOLOL 50 MG TABLET (FP) PO SCH ×2 (09:19→22:55)
[2017-08-19] MEDS: ASPIRIN 81 MG CHEWABLE TABLETS PO SCH (09:19)
[2017-08-19] MEDS: Methylnaltrexone Bromide 12 MG/0.6 ML KIT SQ SCH (09:20)
[2017-08-19] MEDS: metroNIDAZOLE 0.75% TOPICAL GEL 45 GM TUBE TP SCH ×2 (09:20→22:57)
[2017-08-19] MEDS: NYSTATIN POWDER 100,000 UNITS/GM - 15 GM TOPICAL POWDER TP SCH (09:20)
[2017-08-19] MEDS: MUPIROCIN 2% TOPICAL OINTMENT 22 GM TUBE TP SCH (09:20)
[2017-08-19] MEDS: SILVER SULFADIAZINE 1% TOP CREAM 50 GM JAR TP SCH ×2 (09:21→22:56)
[2017-08-19] MEDS: COLLAGENASE CLOSTRIDIUM HIST. 30 GRAMS TUBE TP SCH (09:21)
--- NOTE | 2017-08-19 09:52 | PN ---
Progress Note (short form) - Note Progress Note: Pt seen and examined. No changes orthopedically. PE Left LE ex fix in place, it looks fine. LLE no change in appearance or orthopedic status Imp Doing fine orthopedically Rec Daily 2x [place]adyne wash to left ankle wound and ex fix pin sites. No other orthopedic surgery planned at this time Repeat xrays next week
--- NOTE | 2017-08-19 11:22 | PN ---
Progress Note (short form) - Note Progress Note: PULMONARY Remains on BiPAP. Occasional cough. Last Vital Signs Temp Pulse Resp BP Pulse Ox 98.7 F 82 21 111/83 95 08/19/17 05:40 08/19/17 05:40 08/19/17 05:40 08/19/17 05:40 08/18/17 20:05 Intake & Output 08/16/17 08/17/17 08/18/17 08/19/17 23:59 23:59 23:59 23:59 Intake Total 1648 580 250 Output Total 1000 1500 500 Balance 648 -920 -250 Weight 217.271 kg 216.137 kg 215.116 kg Gen: on BiPAP Heart: RRR Lung: distant breath sounds Abd: soft, obese, edematous Ext: + edema CBC, BMP 08/15/17 06:00 08/18/17 07:25 Active Medications Acetaminophen (Tylenol -) 650 mg PO [facility] Last Admin: 08/18/17 21:37 Dose: 650 mg Al Hydroxide/Mg Hydroxide (Mylanta Oral Suspension -) 30 ml PO Q6H PRN PRN Reason: DYSPEPSIA Albuterol Sulfate (Ventolin 0.083% Nebulizer Soln -) 1 amp NEB Q4H PRN PRN Reason: SHORT OF BREATH/WHEEZING Last Admin: 08/19/17 04:10 Dose: 1 amp Albuterol/Ipratropium (Duoneb -) 1 amp NEB RTID [facility] Last Admin: 08/19/17 07:25 Dose: 1 amp Aspirin (Asa -) 81 mg PO DAILY [facility] Last Admin: 08/19/17 09:19 Dose: 81 mg Atenolol (Tenormin -) 100 mg PO BID [facility] Last Admin: 08/19/17 09:19 Dose: 100 mg Atorvastatin Calcium (Lipitor -) 80 mg PO [facility] Last Admin: 08/18/17 21:38 Dose: 80 mg Bisacodyl (Dulcolax -) 10 mg PO DAILY [facility] Last Admin: 08/19/17 09:18 Dose: 10 mg Bisacodyl (Dulcolax Suppository -) 10 mg RC PRN PRN PRN Reason: CONSTIPATION Collagenase (Santyl -) 1 applic TP DAILY [facility] Last Admin: 08/19/17 09:21 Dose: 1 applic Docusate Sodium (Colace -) 100 mg PO TID [facility] Last Admin: 08/19/17 05:42 Dose: 100 mg Furosemide (Lasix -) 80 mg PO BID@0600,1400 [facility] Last Admin: 08/19/17 05:42 Dose: 80 mg Insulin Aspart (Novolog Vial Sliding Scale -) 1 vial SQ [facility]; Protocol Last Admin: 08/19/17 06:07 Dose: Not Given Insulin Detemir (Levemir Vial) 10 units SQ [facility] Lactulose (Cephulac (Oral Use)) 20 gm PO TID [facility] Last Admin: 08/19/17 05:42 Dose: 20 gm Levothyroxine Sodium (Synthroid -) 100 mcg PO DAILY@0700 [facility] Last Admin: 08/19/17 06:07 Dose: 100 mcg Methylnaltrexone [place] (Relistor -) 12 mg SQ DAILY [facility] Last Admin: 08/19/17 09:20 Dose: 12 mg Metronidazole (Metrogel 0.75% Gel -) 1 applic TP BID [facility] Last Admin: 08/19/17 09:20 Dose: 1 applic Mupirocin (Bactroban 2% Ointment -) 1 applic TP DAILY [facility] Last Admin: 08/19/17 09:20 Dose: 1 applic Nystatin (Nystop Powder -) 1 applic TP DAILY [facility] Last Admin: 08/19/17 09:20 Dose: 1 applic Oxycodone HCl (Roxicodone -) 10 mg PO Q4H PRN PRN Reason: PAIN LEVEL 1-5 Last Admin: 08/19/17 06:50 Dose: 10 mg Rivaroxaban (Xarelto -) 15 mg PO DAILY@1800 [facility] Last Admin: 08/18/17 17:12 Dose: 15 mg Silver Sulfadiazine (Silvadene -) 1 applic TP BID [facility] Last Admin: 08/19/17 09:21 Dose: 1 applic Tamsulosin HCl (Flomax -) 0.4 mg PO DAILY@0830 [facility] Last Admin: 08/19/17 08:04 Dose: 0.4 mg A/P Acute on Chronic Diastolic Heart Failure Acute on Chronic Renal Failure Volume Overload Pulmonary HTN Atrial Fibrillation CAD COPD Morbid Obesity ASHLEY/OHS - continue lasix - monitor urine output, creatinine - inhaled bronchodilators - no indication for systemic steroids at this time - O2 to keep SpO2 >90% - BiPAP to assist in work of breathing - rate controlled with atenolol - continue anticoagulation Problem List - Problems (1) Acute on chronic diastolic (congestive) heart failure Code(s): I50.33 - ACUTE ON CHRONIC DIASTOLIC (CONGESTIVE) HEART FAILURE (2) Acute on chronic renal failure Code(s): N17.9 - ACUTE KIDNEY FAILURE, UNSPECIFIED; N18.9 - CHRONIC KIDNEY DISEASE, UNSPECIFIED (3) Atrial fibrillation Code(s): I48.91 - UNSPECIFIED ATRIAL FIBRILLATION Qualifiers: Atrial fibrillation type: chronic Qualified Code(s): I48.2 - Chronic atrial fibrillation (4) CAD (coronary artery disease) Code(s): I25.10 - ATHSCL HEART DISEASE OF [place] CORONARY ARTERY W/O ANG PCTRS (5) COPD (chronic obstructive pulmonary disease) Code(s): J44.9 - CHRONIC OBSTRUCTIVE PULMONARY DISEASE, UNSPECIFIED (6) Diabetes Code(s): E11.9 - TYPE 2 DIABETES MELLITUS WITHOUT COMPLICATIONS (7) Obesities, morbid Code(s): E66.01 - MORBID (SEVERE) OBESITY DUE TO EXCESS CALORIES (8) Pulmonary HTN Code(s): I27.20 - PULMONARY HYPERTENSION, UNSPECIFIED (9) Sleep apnea Code(s): G47.30 - SLEEP APNEA, UNSPECIFIED (10) Volume overload Code(s): E87.70 - FLUID OVERLOAD, UNSPECIFIED
--- NOTE | 2017-08-19 11:57 | PN ---
Progress Note, Physician History of Present Illness: stable leg wounds look well no complaints patient stable - Current Medication List Current Medications: Active Medications Acetaminophen (Tylenol -) 650 mg PO HS [facility] Last Admin: 08/18/17 21:37 Dose: 650 mg Al Hydroxide/Mg Hydroxide (Mylanta Oral Suspension -) 30 ml PO Q6H PRN PRN Reason: DYSPEPSIA Albuterol Sulfate (Ventolin 0.083% Nebulizer Soln -) 1 amp NEB Q4H PRN PRN Reason: SHORT OF BREATH/WHEEZING Last Admin: 08/19/17 04:10 Dose: 1 amp Albuterol/Ipratropium (Duoneb -) 1 amp NEB RTID [facility] Last Admin: 08/19/17 07:25 Dose: 1 amp Aspirin (Asa -) 81 mg PO DAILY [facility] Last Admin: 08/19/17 09:19 Dose: 81 mg Atenolol (Tenormin -) 100 mg PO BID [facility] Last Admin: 08/19/17 09:19 Dose: 100 mg Atorvastatin Calcium (Lipitor -) 80 mg PO [facility] Last Admin: 08/18/17 21:38 Dose: 80 mg Bisacodyl (Dulcolax -) 10 mg PO DAILY [facility] Last Admin: 08/19/17 09:18 Dose: 10 mg Bisacodyl (Dulcolax Suppository -) 10 mg RC PRN PRN PRN Reason: CONSTIPATION Collagenase (Santyl -) 1 applic TP DAILY [facility] Last Admin: 08/19/17 09:21 Dose: 1 applic Docusate Sodium (Colace -) 100 mg PO TID [facility] Last Admin: 08/19/17 05:42 Dose: 100 mg Furosemide (Lasix -) 80 mg PO BID@0600,1400 [facility] Last Admin: 08/19/17 05:42 Dose: 80 mg Insulin Aspart (Novolog Vial Sliding Scale -) 1 vial SQ [facility]; Protocol Last Admin: 08/19/17 11:50 Dose: Not Given Insulin Detemir (Levemir Vial) 10 units SQ [facility] Lactulose (Cephulac (Oral Use)) 20 gm PO TID [facility] Last Admin: 08/19/17 05:42 Dose: 20 gm Levothyroxine Sodium (Synthroid -) 100 mcg PO DAILY@0700 [facility] Last Admin: 08/19/17 06:07 Dose: 100 mcg Methylnaltrexone [place] (Relistor -) 12 mg SQ DAILY [facility] Last Admin: 08/19/17 09:20 Dose: 12 mg Metronidazole (Metrogel 0.75% Gel -) 1 applic TP BID [facility] Last Admin: 08/19/17 09:20 Dose: 1 applic Mupirocin (Bactroban 2% Ointment -) 1 applic TP DAILY [facility] Last Admin: 08/19/17 09:20 Dose: 1 applic Nystatin (Nystop Powder -) 1 applic TP DAILY [facility] Last Admin: 08/19/17 09:20 Dose: 1 applic Oxycodone HCl (Roxicodone -) 10 mg PO Q4H PRN PRN Reason: PAIN LEVEL 1-5 Last Admin: 08/19/17 06:50 Dose: 10 mg Rivaroxaban (Xarelto -) 15 mg PO DAILY@1800 [facility] Last Admin: 08/18/17 17:12 Dose: 15 mg Silver Sulfadiazine (Silvadene -) 1 applic TP BID [facility] Last Admin: 08/19/17 09:21 Dose: 1 applic Tamsulosin HCl (Flomax -) 0.4 mg PO DAILY@0830 [facility] Last Admin: 08/19/17 08:04 Dose: 0.4 mg - Objective Vital Signs: Vital Signs Temperature 98.7 F 08/19/17 05:40 Pulse Rate 82 08/19/17 05:40 Respiratory Rate 21 08/19/17 05:40 Blood Pressure 111/83 08/19/17 05:40 O2 Sat by Pulse Oximetry (%) 95 08/18/17 20:05 Constitutional: Yes: No Distress, Calm Cardiovascular: Yes: Regular Rate and Rhythm Respiratory: Yes: Regular, On BiPap, On Nasal O2 Gastrointestinal: Yes: Normal Bowel Sounds, Soft Musculoskeletal: Yes: Other Extremities: Yes: Other Wound/Incision: Yes: Clean/Dry, Open to air Neurological: Yes: Alert, Oriented Labs: CBC, BMP 08/15/17 06:00 08/18/17 07:25 INR, PTT INR 1.96 (0.82-1.09) H 08/08/17 05:34 Assessment/Plan Problem List - Problems (1) Acute renal insufficiency Code(s): N28.9 - DISORDER OF KIDNEY AND URETER, UNSPECIFIED (2) Atrial fibrillation Code(s): I48.91 - UNSPECIFIED ATRIAL FIBRILLATION Qualifiers: Atrial fibrillation type: chronic Qualified Code(s): I48.2 - Chronic atrial fibrillation (3) BPH (benign prostatic hyperplasia) Code(s): N40.0 - BENIGN PROSTATIC HYPERPLASIA WITHOUT LOWER URINRY TRACT SYMP (4) CHF (congestive heart failure) Code(s): I50.9 - HEART FAILURE, UNSPECIFIED Qualifiers: Heart failure type: unspecified Heart failure chronicity: acute on chronic Qualified Code(s): I50.9 - Heart failure, unspecified (5) Acute renal failure (ARF) Code(s): N17.9 - ACUTE KIDNEY FAILURE, UNSPECIFIED (6) CAD (coronary artery disease) Code(s): I25.10 - ATHSCL HEART DISEASE OF [place] CORONARY ARTERY W/O ANG PCTRS (7) COPD (chronic obstructive pulmonary disease) Code(s): J44.9 - CHRONIC OBSTRUCTIVE PULMONARY DISEASE, UNSPECIFIED (8) Cellulitis of right leg Code(s): L03.115 - CELLULITIS OF RIGHT LOWER LIMB (9) Diabetes Code(s): E11.9 - TYPE 2 DIABETES MELLITUS WITHOUT COMPLICATIONS (10) Dyslipidemia Code(s): E78.5 - HYPERLIPIDEMIA, UNSPECIFIED (11) Obesities, morbid Code(s): E66.01 - MORBID (SEVERE) OBESITY DUE TO EXCESS CALORIES (12) Open left ankle fracture Code(s): S82.892B - OTH FRACTURE OF LEFT LOWER LEG, INIT FOR OPN FX TYPE I/2 Qualifiers: Encounter type: initial encounter (13) Sleep apnea Code(s): G47.30 - SLEEP APNEA, UNSPECIFIED (14) Venous (peripheral) insufficiency Code(s): I87.2 - VENOUS INSUFFICIENCY (CHRONIC) (PERIPHERAL) (15) Venous ulcer Code(s): I87.8 - OTHER SPECIFIED DISORDERS OF VEINS Assessment/Plan 61 y.o. male with PMH of DM, morbid obesity, CAD, CHF, AFIB, CKD, BPH, LLE compound fracture s/p external fixation with hardware in place, RLE cellulitis, LE infected ulcers receiving IV antibiotics in [place] presenting with urinary retention, KRUNAL and generalized rash and elevated Vancomycin levels Hx of RLE cellulitis/LLE infected ulcers - appears to have improved Rash resolving KRUNAL on CKD Urinary retention plan continue to monitor care of the fracture resp support diet no abx further plan awaited
--- NOTE | 2017-08-19 15:10 | PN ---
Progress Note, Physician History of Present Illness: Pt seen and examined at bedside. He is awake and alert. He still requires CPAP. - Current Medication List Current Medications: Active Medications Acetaminophen (Tylenol -) 650 mg PO HS [facility] Last Admin: 08/18/17 21:37 Dose: 650 mg Al Hydroxide/Mg Hydroxide (Mylanta Oral Suspension -) 30 ml PO Q6H PRN PRN Reason: DYSPEPSIA Albuterol Sulfate (Ventolin 0.083% Nebulizer Soln -) 1 amp NEB Q4H PRN PRN Reason: SHORT OF BREATH/WHEEZING Last Admin: 08/19/17 04:10 Dose: 1 amp Albuterol/Ipratropium (Duoneb -) 1 amp NEB RTID [facility] Last Admin: 08/19/17 13:47 Dose: 1 amp Aspirin (Asa -) 81 mg PO DAILY [facility] Last Admin: 08/19/17 09:19 Dose: 81 mg Atenolol (Tenormin -) 100 mg PO BID [facility] Last Admin: 08/19/17 09:19 Dose: 100 mg Atorvastatin Calcium (Lipitor -) 80 mg PO HS [facility] Last Admin: 08/18/17 21:38 Dose: 80 mg Bisacodyl (Dulcolax -) 10 mg PO DAILY [facility] Last Admin: 08/19/17 09:18 Dose: 10 mg Bisacodyl (Dulcolax Suppository -) 10 mg RC PRN PRN PRN Reason: CONSTIPATION Collagenase (Santyl -) 1 applic TP DAILY [facility] Last Admin: 08/19/17 09:21 Dose: 1 applic Docusate Sodium (Colace -) 100 mg PO TID [facility] Last Admin: 08/19/17 14:34 Dose: 100 mg Furosemide (Lasix -) 80 mg PO BID@0600,1400 [facility] Last Admin: 08/19/17 14:35 Dose: 80 mg Insulin Aspart (Novolog Vial Sliding Scale -) 1 vial SQ [facility]; Protocol Last Admin: 08/19/17 11:50 Dose: Not Given Insulin Detemir (Levemir Vial) 10 units SQ [facility] Lactulose (Cephulac (Oral Use)) 20 gm PO TID [facility] Last Admin: 08/19/17 14:36 Dose: Not Given Levothyroxine Sodium (Synthroid -) 100 mcg PO DAILY@0700 [facility] Last Admin: 08/19/17 06:07 Dose: 100 mcg Methylnaltrexone [place] (Relistor -) 12 mg SQ DAILY [facility] Last Admin: 08/19/17 09:20 Dose: 12 mg Metronidazole (Metrogel 0.75% Gel -) 1 applic TP BID [facility] Last Admin: 08/19/17 09:20 Dose: 1 applic Mupirocin (Bactroban 2% Ointment -) 1 applic TP DAILY [facility] Last Admin: 08/19/17 09:20 Dose: 1 applic Nystatin (Nystop Powder -) 1 applic TP DAILY [facility] Last Admin: 08/19/17 09:20 Dose: 1 applic Oxycodone HCl (Roxicodone -) 10 mg PO Q4H PRN PRN Reason: PAIN LEVEL 1-5 Last Admin: 08/19/17 14:35 Dose: 10 mg Rivaroxaban (Xarelto -) 15 mg PO DAILY@1800 [facility] Last Admin: 08/18/17 17:12 Dose: 15 mg Silver Sulfadiazine (Silvadene -) 1 applic TP BID [facility] Last Admin: 08/19/17 09:21 Dose: 1 applic Tamsulosin HCl (Flomax -) 0.4 mg PO DAILY@0830 [facility] Last Admin: 08/19/17 08:04 Dose: 0.4 mg - Objective Vital Signs: Vital Signs Temperature 97.8 F 08/19/17 14:00 Pulse Rate 84 08/19/17 14:00 Respiratory Rate 20 08/19/17 14:00 Blood Pressure 95/58 08/19/17 14:00 O2 Sat by Pulse Oximetry (%) 95 08/18/17 20:05 Constitutional: Yes: Calm Eyes: Yes: Conjunctiva Clear HENT: Yes: Atraumatic Cardiovascular: Yes: S1, S2 Respiratory: Yes: On Nasal O2 Gastrointestinal: Yes: Soft, Abdomen, Obese Genitourinary: Yes: WNL Musculoskeletal: Yes: Muscle Weakness (external fixation of fracture) Edema: Yes Edema: LLE: 2+, RLE: 2+ Neurological: Yes: Oriented Psychiatric: Yes: Oriented Labs: CBC, BMP 08/15/17 06:00 08/18/17 07:25 INR, PTT INR 1.96 (0.82-1.09) H 08/08/17 05:34 Problem List - Problems (1) Acute renal insufficiency Code(s): N28.9 - DISORDER OF KIDNEY AND URETER, UNSPECIFIED (2) Atrial fibrillation Code(s): I48.91 - UNSPECIFIED ATRIAL FIBRILLATION Qualifiers: Atrial fibrillation type: chronic Qualified Code(s): I48.2 - Chronic atrial fibrillation (3) BPH (benign prostatic hyperplasia) Code(s): N40.0 - BENIGN PROSTATIC HYPERPLASIA WITHOUT LOWER URINRY TRACT SYMP (4) CHF (congestive heart failure) Code(s): I50.9 - HEART FAILURE, UNSPECIFIED Qualifiers: Heart failure type: unspecified Heart failure chronicity: acute on chronic Qualified Code(s): I50.9 - Heart failure, unspecified (5) Acute renal failure (ARF) Code(s): N17.9 - ACUTE KIDNEY FAILURE, UNSPECIFIED (6) CAD (coronary artery disease) Code(s): I25.10 - ATHSCL HEART DISEASE OF [place] CORONARY ARTERY W/O ANG PCTRS (7) CKD (chronic kidney disease) Code(s): N18.9 - CHRONIC KIDNEY DISEASE, UNSPECIFIED (8) Cellulitis Code(s): L03.90 - CELLULITIS, UNSPECIFIED Assessment/Plan Current Medications Generic Name Dose Route Start Last Admin Trade Name Freq PRN Reason Stop Dose Admin Acetaminophen 650 mg 08/07/17 22:00 08/18/17 21:37 Tylenol - PO 650 mg HS NEIL Administration Al Hydroxide/Mg Hydroxide 30 ml 08/17/17 12:00 Mylanta Oral Suspension - PO Q6H PRN DYSPEPSIA Albuterol Sulfate 1 amp 08/17/17 10:47 08/19/17 04:10 Ventolin 0.083% Nebulizer Soln - NEB 1 amp Q4H PRN Administration SHORT OF BREATH/WHEEZING Albuterol/Ipratropium 1 amp 08/17/17 14:00 08/19/17 13:47 Duoneb - NEB 1 amp RTID NEIL Administration Aspirin 81 mg 08/11/17 10:00 08/19/17 09:19 Asa - PO 81 mg DAILY NEIL Administration Atenolol 100 mg 08/07/17 13:35 08/19/17 09:19 Tenormin - PO 100 mg BID NEIL Administration Atorvastatin Calcium 80 mg 08/07/17 22:00 08/18/17 21:38 Lipitor - PO 80 mg HS NEIL Administration Bisacodyl 10 mg 05/12/18 10:00 08/19/17 09:18 Dulcolax - PO 10 mg DAILY NEIL Administration Bisacodyl 10 mg 08/15/17 17:44 Dulcolax Suppository - RC PRN PRN CONSTIPATION Collagenase 1 applic 08/07/17 10:00 08/19/17 09:21 Santyl - TP 1 applic DAILY NEIL Administration Docusate Sodium 100 mg 08/07/17 13:45 08/19/17 14:34 Colace - PO 100 mg TID NEIL Administration Furosemide 80 mg 08/18/17 14:00 08/19/17 14:35 Lasix - PO 80 mg BID@0600,1400 NEIL Administration Insulin Aspart 1 vial 08/07/17 07:00 08/19/17 11:50 Novolog Vial Sliding Scale - SQ Not Given ACHS [facility] Protocol Insulin Detemir 10 units 08/19/17 22:00 Levemir Vial SQ [facility] Lactulose 20 gm 08/18/17 14:00 08/19/17 14:36 Cephulac (Oral Use) PO Not Given TID [facility] Levothyroxine Sodium 100 mcg 08/07/17 07:00 08/19/17 06:07 Synthroid - PO 100 mcg DAILY@0700 [facility] Administration Methylnaltrexone [place] 12 mg 08/19/17 10:00 08/19/17 09:20 Relistor - SQ 12 mg DAILY NEIL Administration Metronidazole 1 applic 08/07/17 10:00 08/19/17 09:20 Metrogel 0.75% Gel - TP 1 applic BID NEIL Administration Mupirocin 1 applic 08/07/17 10:00 08/19/17 09:20 Bactroban 2% Ointment - TP 1 applic DAILY [facility]IL Administration Nystatin 1 applic 08/11/17 10:00 08/19/17 09:20 Nystop Powder - TP 1 applic DAILY [facility] Administration Oxycodone HCl 10 mg 08/13/17 18:18 08/19/17 14:35 Roxicodone - PO 10 mg Q4H PRN Administration PAIN LEVEL 1-5 Rivaroxaban 15 mg 08/16/17 18:00 08/18/17 17:12 Xarelto - PO 15 mg DAILY@1800 NEIL Administration Silver Sulfadiazine 1 applic 08/17/17 12:00 08/19/17 09:21 Silvadene - TP 1 applic BID NEIL Administration Tamsulosin HCl 0.4 mg 08/07/17 11:45 08/19/17 08:04 Flomax - PO 0.4 mg DAILY@0830 NEIL Administration Impression 1. CKD 2. KRUNAL 3. volume overload 4. morbid obesity 5. CAD 6. cellulitis 7. s/p fall 8. a-fib 9. DM 10. hypothyroidism 11. HLD 12. CHF 13. s/p leg fracture 14. hyperkalemia 15. constipation Plan - pt is developing signs of fluid overload - will increase dose of lasix - monitor renal function - avoid nephrotoxic agents - monitor renal function - will hold off jasmyne as he has had hyperkalemia on multiple occasions - renal diet
[2017-08-19] MEDS: FUROSEMIDE 40 MG/4 ML INJECTABLE VIAL IVPUSH SCH (16:15)
[2017-08-19] MEDS ORDERED: INSULIN (NOVOLOG) ASPART 100 UNITS/ML 10ML VIAL ONE (16:25)
[2017-08-19] MEDS: RIVAROXABAN 15 MG TABLET PO SCH (17:13)
[2017-08-19] MEDS: ACETAMINOPHEN 325 MG TABLET (FP) PO SCH (22:55)
[2017-08-19] MEDS: ATORVASTATIN CA 80 MG TABLET (FP) PO SCH (22:55)
[2017-08-19] MEDS: INSULIN (LEVEMIR) 100 UNITS/ML UNITS SQ SCH (22:57)
[2017-08-20] MEDS: ALBUTEROL SO4 0.083% IH SOL 2.5 MG/3 ML VIAL.NEB. NEB PRN (05:15)
[2017-08-20] MEDS: FUROSEMIDE 40 MG/4 ML INJECTABLE VIAL IVPUSH SCH ×2 (06:03→13:39)
[2017-08-20] MEDS: oxyCODONE HCL 5 MG TABLET PO PRN ×2 (06:03→13:39)
[2017-08-20] MEDS: DOCUSATE SODIUM 100 MG CAPSULE (FP) PO SCH ×2 (06:03→13:39)
[2017-08-20] MEDS: LACTULOSE 20 GM/30 ML UDC (FOR ORAL USE ONLY) PO SCH ×2 (06:03→13:39)
[2017-08-20] MEDS: INSULIN SLIDING SCALE (NOVOLOG) 1 VIAL SQ SCH ×4 (06:04→22:04)
[2017-08-20] MEDS: LEVOTHYROXINE NA 100 MCG TABLET (FP) PO SCH (06:09)
[2017-08-20] MEDS: ALBUTEROL SO4 2.5/IPRATROPIUM 0.5 INH SOL 3 ML VIAL.NEB. NEB SCH ×3 (07:39→20:25)
[2017-08-20] MEDS: TAMSULOSIN HCL 0.4 MG CAP.ER.24H (FP) PO SCH (08:13)
[2017-08-20 08:15] LABS: CHLORIDE 103 mmol/L (98-107); POTASSIUM 4.4 mmol/L (3.5-5.1); SODIUM 139 mmol/L (136-145)
[2017-08-20 08:51] LABS: ANION GAP 9 (8-16); BLOOD UREA NITROGEN 81 mg/dL (7-18); CO2 27 mmol/L (21-32); GLUCOSE,RANDOM 149 mg/dL (74-106)
[2017-08-20] MEDS: ASPIRIN 81 MG CHEWABLE TABLETS PO SCH (09:49)
[2017-08-20] MEDS: BISACODYL 5 MG TABLET.DR (FP) PO SCH (09:50)
[2017-08-20] MEDS: ATENOLOL 50 MG TABLET (FP) PO SCH ×2 (09:52→22:03)
[2017-08-20] MEDS: metroNIDAZOLE 0.75% TOPICAL GEL 45 GM TUBE TP SCH ×2 (09:53→22:03)
[2017-08-20] MEDS: COLLAGENASE CLOSTRIDIUM HIST. 30 GRAMS TUBE TP SCH (09:55)
[2017-08-20] MEDS: MUPIROCIN 2% TOPICAL OINTMENT 22 GM TUBE TP SCH (09:55)
--- NOTE | 2017-08-20 09:57 | PN ---
Progress Note, Physician Chief Complaint: Awake, alert, occasionally confused. Had BM. Right ankle -puncture wound dry. + tenderness. New anterior wound with skin abrasion-clean. Spoke to [place] AND UPDATED ON THE PATIENT'S CONDITION. Vital Signs (72 hours) 08/17/17 08/17/17 08/17/17 10:00 14:00 22:00 Temperature 98.0 F 97.2 F L Pulse Rate 82 74 72 Respiratory 20 18 19 Rate Blood Pressure 138/65 129/69 109/60 O2 Sat by Pulse Oximetry (%) 08/18/17 08/18/17 08/18/17 09:00 10:00 14:00 Temperature 98.3 F Pulse Rate 82 76 Respiratory 20 18 Rate Blood Pressure 100/56 93/61 O2 Sat by Pulse 94 L Oximetry (%) 08/18/17 08/18/17 08/19/17 19:28 20:05 05:40 Temperature 98.4 F 98.7 F Pulse Rate 89 82 Respiratory 20 21 Rate Blood Pressure 113/74 111/83 O2 Sat by Pulse 95 Oximetry (%) 08/19/17 08/19/17 08/19/17 09:00 10:00 14:00 Temperature 98.7 F 97.8 F Pulse Rate 85 84 Respiratory 21 24 20 Rate Blood Pressure 129/67 95/58 O2 Sat by Pulse Oximetry (%) 08/19/17 08/19/17 08/19/17 18:00 20:39 22:00 Temperature 98.2 F 98.0 F Pulse Rate 78 80 Respiratory 20 20 Rate Blood Pressure 100/70 127/69 O2 Sat by Pulse 95 Oximetry (%) 08/20/17 08/20/17 08/20/17 01:24 05:28 06:00 Temperature 98.6 F Pulse Rate 77 Respiratory 18 Rate Blood Pressure 108/64 O2 Sat by Pulse 95 95 Oximetry (%) 08/20/17 08/20/17 07:47 08:25 Temperature 97.9 F Pulse Rate 79 Respiratory 21 Rate Blood Pressure 102/61 O2 Sat by Pulse 95 Oximetry (%) Intake & Output 08/17/17 08/18/17 08/19/17 08/20/17 11:59 11:59 11:59 11:59 Intake Total 736 580 250 440 Output Total 1674 097 5752 Balance 716 -920 250 -1235 Weight 479 lb 476 lb 8 oz 474 lb 4 oz nECK-NO jvd Lungs B/L BS few B/B crackles Heart S1S2 irregular, irregular Abdomen soft, NT Laboratory Results - last 24 hr 08/19/17 08/19/17 08/19/17 11:33 16:19 22:51 Sodium Potassium Chloride Carbon Dioxide Anion Gap BUN Creatinine POC Glucometer 187 210 187 Random Glucose Calcium 08/20/17 08/20/17 05:59 06:30 Sodium 139 Potassium 4.4 Chloride 103 Carbon Dioxide 27 Anion Gap 9 BUN 81 H Creatinine 2.0 H POC Glucometer 158 Random Glucose 149 H D Calcium 8.0 L Plan X-ray right ankle Wound care Continue diuretics, Xarelto BGM Pulmonary, cardiology, Nephrology f/u History of Present Illness: Recent hospitalization for acute cellulitis RLE after fall [employer] [employer]. The patient sustained open left ankle fracture while at [facility] and had subsequent external fixation by Dr. Thayer Morbid obesity. ASHLEY. Bilateral PE. Pulmonary HTN-CTEPH , ASHLEY AND CLASS 2 PAH. CHF-mostly diastolic. ASHD. STEMI in 2016 with MICHAEL x2 placed at [place]. Chronic A.Fib-on a/c-Xarelto/ASA now. Gout. Gouty arthritis CKD 3 DM type 2. Chronic DVT Right thigh, Stasis ulcers, edema. Chronic wound right Ankle/dobbs-RX at [facility]-groing multiple organisms. - Current Medication List Current Medications: Active Medications Acetaminophen (Tylenol -) 650 mg PO HS [facility] Last Admin: 08/19/17 22:55 Dose: 650 mg Al Hydroxide/Mg Hydroxide (Mylanta Oral Suspension -) 30 ml PO Q6H PRN PRN Reason: DYSPEPSIA Albuterol Sulfate (Ventolin 0.083% Nebulizer Soln -) 1 amp NEB Q4H PRN PRN Reason: SHORT OF BREATH/WHEEZING Last Admin: 08/20/17 05:15 Dose: 1 amp Albuterol/Ipratropium (Duoneb -) 1 amp NEB RTID [facility] Last Admin: 08/20/17 07:39 Dose: 1 amp Aspirin (Asa -) 81 mg PO DAILY [facility] Last Admin: 08/19/17 09:19 Dose: 81 mg Atenolol (Tenormin -) 100 mg PO BID [facility] Last Admin: 08/19/17 22:55 Dose: 100 mg Atorvastatin Calcium (Lipitor -) 80 mg PO HS [facility] Last Admin: 08/19/17 22:55 Dose: 80 mg Bisacodyl (Dulcolax -) 10 mg PO DAILY [facility] Last Admin: 08/19/17 09:18 Dose: 10 mg Bisacodyl (Dulcolax Suppository -) 10 mg RC PRN PRN PRN Reason: CONSTIPATION Collagenase (Santyl -) 1 applic TP DAILY [facility] Last Admin: 08/19/17 09:21 Dose: 1 applic Docusate Sodium (Colace -) 100 mg PO TID [facility] Last Admin: 08/20/17 06:03 Dose: 100 mg Furosemide (Lasix Injection -) 80 mg IVPUSH BID@0600,1400 [facility] Last Admin: 08/20/17 06:03 Dose: 80 mg Insulin Aspart (Novolog Vial Sliding Scale -) 1 vial SQ [facility]; Protocol Last Admin: 08/20/17 06:04 Dose: Not Given Insulin Detemir (Levemir Vial) 10 units SQ [facility] Last Admin: 08/19/17 22:57 Dose: 10 units Lactulose (Cephulac (Oral Use)) 20 gm PO TID [facility] Last Admin: 08/20/17 06:03 Dose: 20 gm Levothyroxine Sodium (Synthroid -) 100 mcg PO DAILY@0700 [facility] Last Admin: 08/20/17 06:09 Dose: 100 mcg Methylnaltrexone [place] (Relistor -) 12 mg SQ DAILY [facility] Last Admin: 08/19/17 09:20 Dose: 12 mg Metronidazole (Metrogel 0.75% Gel -) 1 applic TP BID [facility] Last Admin: 08/19/17 22:57 Dose: 1 applic Mupirocin (Bactroban 2% Ointment -) 1 applic TP DAILY [facility] Last Admin: 08/19/17 09:20 Dose: 1 applic Nystatin (Nystop Powder -) 1 applic TP DAILY [facility] Last Admin: 08/19/17 09:20 Dose: 1 applic Oxycodone HCl (Roxicodone -) 10 mg PO Q4H PRN PRN Reason: PAIN LEVEL 1-5 Last Admin: 08/20/17 06:03 Dose: 10 mg Rivaroxaban (Xarelto -) 15 mg PO DAILY@1800 [facility] Last Admin: 05/24/18 17:13 Dose: 15 mg Silver Sulfadiazine (Silvadene -) 1 applic TP BID [facility] Last Admin: 08/19/17 22:56 Dose: 1 applic Tamsulosin HCl (Flomax -) 0.4 mg PO DAILY@0830 [facility] Last Admin: 08/20/17 08:13 Dose: 0.4 mg - Objective Vital Signs: Vital Signs Temperature 97.9 F 08/20/17 08:25 Pulse Rate 79 08/20/17 08:25 Respiratory Rate 21 08/20/17 08:25 Blood Pressure 102/61 08/20/17 08:25 O2 Sat by Pulse Oximetry (%) 95 08/20/17 07:47 Labs: CBC, BMP 08/15/17 06:00 08/20/17 06:30 INR, PTT INR 1.96 (0.82-1.09) H 08/08/17 05:34 Problem List - Problems (1) Acute renal insufficiency Code(s): N28.9 - DISORDER OF KIDNEY AND URETER, UNSPECIFIED (2) Atrial fibrillation Code(s): I48.91 - UNSPECIFIED ATRIAL FIBRILLATION Qualifiers: Atrial fibrillation type: chronic Qualified Code(s): I48.2 - Chronic atrial fibrillation (3) BPH (benign prostatic hyperplasia) Code(s): N40.0 - BENIGN PROSTATIC HYPERPLASIA WITHOUT LOWER URINRY TRACT SYMP (4) CHF (congestive heart failure) Code(s): I50.9 - HEART FAILURE, UNSPECIFIED Qualifiers: Heart failure type: unspecified Heart failure chronicity: acute on chronic Qualified Code(s): I50.9 - Heart failure, unspecified (5) Accident due to mechanical fall without injury Code(s): W19.XXXA - UNSPECIFIED FALL, INITIAL ENCOUNTER Qualifiers: Encounter type: subsequent encounter Qualified Code(s): W19.XXXD - Unspecified fall, subsequent encounter (6) Severe pain Code(s): R52 - PAIN, UNSPECIFIED (7) Urinary (tract) obstruction Code(s): N13.9 - OBSTRUCTIVE AND REFLUX UROPATHY, UNSPECIFIED (8) Unspecified open wound, right ankle, initial encounter Code(s): S91.001A - UNSPECIFIED OPEN WOUND, RIGHT ANKLE, INITIAL ENCOUNTER (9) Constipation by delayed colonic transit Code(s): K59.01 - SLOW TRANSIT CONSTIPATION (10) Diabetes 1.5, managed as type 1 Code(s): E10.9 - TYPE 1 DIABETES MELLITUS WITHOUT COMPLICATIONS
[2017-08-20] MEDS ORDERED: PT OWN MED DRAWER 7, Y5N ONE ×2 (10:00→17:00)
[2017-08-20] MEDS: Methylnaltrexone Bromide 12 MG/0.6 ML KIT SQ SCH (10:03)
--- NOTE | 2017-08-20 11:54 | PN ---
Progress Note, Physician Chief Complaint: no distress renal notes reviewed. - Current Medication List Current Medications: Active Medications Acetaminophen (Tylenol -) 650 mg PO HS [facility] Last Admin: 08/19/17 22:55 Dose: 650 mg Al Hydroxide/Mg Hydroxide (Mylanta Oral Suspension -) 30 ml PO Q6H PRN PRN Reason: DYSPEPSIA Albuterol Sulfate (Ventolin 0.083% Nebulizer Soln -) 1 amp NEB Q4H PRN PRN Reason: SHORT OF BREATH/WHEEZING Last Admin: 08/20/17 05:15 Dose: 1 amp Albuterol/Ipratropium (Duoneb -) 1 amp NEB RTID [facility] Last Admin: 08/20/17 07:39 Dose: 1 amp Aspirin (Asa -) 81 mg PO DAILY [facility] Last Admin: 08/20/17 09:49 Dose: 81 mg Atenolol (Tenormin -) 100 mg PO BID [facility] Last Admin: 08/20/17 09:52 Dose: 100 mg Atorvastatin Calcium (Lipitor -) 80 mg PO [facility] Last Admin: 08/19/17 22:55 Dose: 80 mg Bisacodyl (Dulcolax -) 10 mg PO DAILY [facility] Last Admin: 08/20/17 09:50 Dose: 10 mg Bisacodyl (Dulcolax Suppository -) 10 mg RC PRN PRN PRN Reason: CONSTIPATION Collagenase (Santyl -) 1 applic TP DAILY [facility] Last Admin: 08/20/17 09:55 Dose: 1 applic Docusate Sodium (Colace -) 100 mg PO TID [facility] Last Admin: 08/20/17 06:03 Dose: 100 mg Furosemide (Lasix Injection -) 80 mg IVPUSH BID@0600,1400 [facility] Last Admin: 08/20/17 06:03 Dose: 80 mg Insulin Aspart (Novolog Vial Sliding Scale -) 1 vial SQ [facility]; Protocol Last Admin: 08/20/17 06:04 Dose: Not Given Insulin Detemir (Levemir Vial) 10 units SQ [facility] Last Admin: 08/19/17 22:57 Dose: 10 units Lactulose (Cephulac (Oral Use)) 20 gm PO TID [facility] Last Admin: 08/20/17 06:03 Dose: 20 gm Levothyroxine Sodium (Synthroid -) 100 mcg PO DAILY@0700 [facility] Last Admin: 08/20/17 06:09 Dose: 100 mcg Methylnaltrexone [place] (Relistor -) 12 mg SQ DAILY [facility] Last Admin: 08/20/17 10:03 Dose: 12 mg Metronidazole (Metrogel 0.75% Gel -) 1 applic TP BID [facility] Last Admin: 08/20/17 09:53 Dose: 1 applic Mupirocin (Bactroban 2% Ointment -) 1 applic TP DAILY [facility] Last Admin: 08/20/17 09:55 Dose: 1 applic Nystatin (Nystop Powder -) 1 applic TP DAILY [facility] Last Admin: 08/19/17 09:20 Dose: 1 applic Oxycodone HCl (Roxicodone -) 10 mg PO Q4H PRN PRN Reason: PAIN LEVEL 1-5 Last Admin: 08/20/17 06:03 Dose: 10 mg Rivaroxaban (Xarelto -) 15 mg PO DAILY@1800 [facility] Last Admin: 08/19/17 17:13 Dose: 15 mg Silver Sulfadiazine (Silvadene -) 1 applic TP BID [facility] Last Admin: 08/19/17 22:56 Dose: 1 applic Tamsulosin HCl (Flomax -) 0.4 mg PO DAILY@0830 [facility] Last Admin: 08/20/17 08:13 Dose: 0.4 mg - Objective Vital Signs: Vital Signs Temperature 97.9 F 08/20/17 08:25 Pulse Rate 79 08/20/17 08:25 Respiratory Rate 21 08/20/17 08:25 Blood Pressure 102/61 08/20/17 08:25 O2 Sat by Pulse Oximetry (%) 95 08/20/17 07:47 Constitutional: Yes: No Distress, Calm Cardiovascular: Yes: Pulse Irregular Respiratory: Yes: Other (decreased breath sounds at bases) Gastrointestinal: Yes: Soft, Abdomen, Obese Edema: Yes Edema: LLE: 2+, RLE: 2+ Neurological: Yes: Alert, Oriented Labs: CBC, BMP 08/15/17 06:00 08/20/17 06:30 INR, PTT INR 1.96 (0.82-1.09) H 08/08/17 05:34 Microbiology 08/06/17 22:00 Urine - Urine Boyle Urine Culture - Final NO GROWTH OBTAINED Laboratory Tests 08/15/17 08/20/17 06:00 06:30 WBC 8.0 D Hgb 9.5 L Plt Count 233 Sodium 139 Potassium 4.4 BUN 81 H Creatinine 2.0 H - ....Imaging Chest X-ray: Report Reviewed Assessment/Plan IMP: Acute on chronic RF, hyperK+, improved Permanent AF CAD s/p PCI Chronic diastolic CHF Plan: - agree that pt is again developing signs of fluid overload - continue IV Lasix - monitor renal function - avoid nephrotoxic agents - holding UVALDO-I as he has had hyperkalemia on multiple occasions - renal diet -Xarelto, adjusted for renal fx.
--- NOTE | 2017-08-20 12:41 | PN ---
Progress Note, Physician History of Present Illness: still awaiting for the final plan patient is stable on bipap now calm - Current Medication List Current Medications: Active Medications Acetaminophen (Tylenol -) 650 mg PO HS [facility] Last Admin: 08/19/17 22:55 Dose: 650 mg Al Hydroxide/Mg Hydroxide (Mylanta Oral Suspension -) 30 ml PO Q6H PRN PRN Reason: DYSPEPSIA Albuterol Sulfate (Ventolin 0.083% Nebulizer Soln -) 1 amp NEB Q4H PRN PRN Reason: SHORT OF BREATH/WHEEZING Last Admin: 08/20/17 05:15 Dose: 1 amp Albuterol/Ipratropium (Duoneb -) 1 amp NEB RTID [facility] Last Admin: 08/20/17 07:39 Dose: 1 amp Aspirin (Asa -) 81 mg PO DAILY [facility] Last Admin: 08/20/17 09:49 Dose: 81 mg Atenolol (Tenormin -) 100 mg PO BID [facility] Last Admin: 08/20/17 09:52 Dose: 100 mg Atorvastatin Calcium (Lipitor -) 80 mg PO [facility] Last Admin: 08/19/17 22:55 Dose: 80 mg Bisacodyl (Dulcolax -) 10 mg PO DAILY [facility] Last Admin: 08/20/17 09:50 Dose: 10 mg Bisacodyl (Dulcolax Suppository -) 10 mg RC PRN PRN PRN Reason: CONSTIPATION Collagenase (Santyl -) 1 applic TP DAILY [facility] Last Admin: 08/20/17 09:55 Dose: 1 applic Docusate Sodium (Colace -) 100 mg PO TID [facility] Last Admin: 08/20/17 06:03 Dose: 100 mg Furosemide (Lasix Injection -) 80 mg IVPUSH BID@0600,1400 [facility] Last Admin: 08/20/17 06:03 Dose: 80 mg Insulin Aspart (Novolog Vial Sliding Scale -) 1 vial SQ [facility]; Protocol Last Admin: 08/20/17 06:04 Dose: Not Given Insulin Detemir (Levemir Vial) 10 units SQ [facility] Last Admin: 08/19/17 22:57 Dose: 10 units Lactulose (Cephulac (Oral Use)) 20 gm PO TID [facility] Last Admin: 08/20/17 06:03 Dose: 20 gm Levothyroxine Sodium (Synthroid -) 100 mcg PO DAILY@0700 [facility] Last Admin: 08/20/17 06:09 Dose: 100 mcg Methylnaltrexone [place] (Relistor -) 12 mg SQ DAILY [facility] Last Admin: 08/20/17 10:03 Dose: 12 mg Metronidazole (Metrogel 0.75% Gel -) 1 applic TP BID [facility] Last Admin: 08/20/17 09:53 Dose: 1 applic Mupirocin (Bactroban 2% Ointment -) 1 applic TP DAILY [facility] Last Admin: 08/20/17 09:55 Dose: 1 applic Nystatin (Nystop Powder -) 1 applic TP DAILY [facility] Last Admin: 08/19/17 09:20 Dose: 1 applic Oxycodone HCl (Roxicodone -) 10 mg PO Q4H PRN PRN Reason: PAIN LEVEL 1-5 Last Admin: 08/20/17 06:03 Dose: 10 mg Rivaroxaban (Xarelto -) 15 mg PO DAILY@1800 [facility] Last Admin: 08/19/17 17:13 Dose: 15 mg Silver Sulfadiazine (Silvadene -) 1 applic TP BID [facility] Last Admin: 08/19/17 22:56 Dose: 1 applic Tamsulosin HCl (Flomax -) 0.4 mg PO DAILY@0830 [facility] Last Admin: 08/20/17 08:13 Dose: 0.4 mg - Objective Vital Signs: Vital Signs Temperature 97.9 F 08/20/17 08:25 Pulse Rate 79 08/20/17 08:25 Respiratory Rate 21 08/20/17 08:25 Blood Pressure 102/61 08/20/17 08:25 O2 Sat by Pulse Oximetry (%) 95 08/20/17 07:47 Constitutional: Yes: No Distress, Calm, Obese Cardiovascular: Yes: Regular Rate and Rhythm Respiratory: Yes: Regular, On BiPap Gastrointestinal: Yes: Normal Bowel Sounds, Soft Musculoskeletal: Yes: WNL Extremities: Yes: Other Neurological: Yes: Alert, Oriented Psychiatric: Yes: Alert, Oriented Labs: CBC, BMP 08/15/17 06:00 08/20/17 06:30 INR, PTT INR 1.96 (0.82-1.09) H 08/08/17 05:34 Assessment/Plan Problem List - Problems (1) Acute renal insufficiency Code(s): N28.9 - DISORDER OF KIDNEY AND URETER, UNSPECIFIED (2) Atrial fibrillation Code(s): I48.91 - UNSPECIFIED ATRIAL FIBRILLATION Qualifiers: Atrial fibrillation type: chronic Qualified Code(s): I48.2 - Chronic atrial fibrillation (3) BPH (benign prostatic hyperplasia) Code(s): N40.0 - BENIGN PROSTATIC HYPERPLASIA WITHOUT LOWER URINRY TRACT SYMP (4) CHF (congestive heart failure) Code(s): I50.9 - HEART FAILURE, UNSPECIFIED Qualifiers: Heart failure type: unspecified Heart failure chronicity: acute on chronic Qualified Code(s): I50.9 - Heart failure, unspecified (5) Acute renal failure (ARF) Code(s): N17.9 - ACUTE KIDNEY FAILURE, UNSPECIFIED (6) CAD (coronary artery disease) Code(s): I25.10 - ATHSCL HEART DISEASE OF [place] CORONARY ARTERY W/O ANG PCTRS (7) COPD (chronic obstructive pulmonary disease) Code(s): J44.9 - CHRONIC OBSTRUCTIVE PULMONARY DISEASE, UNSPECIFIED (8) Cellulitis of right leg Code(s): L03.115 - CELLULITIS OF RIGHT LOWER LIMB (9) Diabetes Code(s): E11.9 - TYPE 2 DIABETES MELLITUS WITHOUT COMPLICATIONS (10) Dyslipidemia Code(s): E78.5 - HYPERLIPIDEMIA, UNSPECIFIED (11) Obesities, morbid Code(s): E66.01 - MORBID (SEVERE) OBESITY DUE TO EXCESS CALORIES (12) Open left ankle fracture Code(s): S82.892B - OTH FRACTURE OF LEFT LOWER LEG, INIT FOR OPN FX TYPE I/2 Qualifiers: Encounter type: initial encounter (13) Sleep apnea Code(s): G47.30 - SLEEP APNEA, UNSPECIFIED (14) Venous (peripheral) insufficiency Code(s): I87.2 - VENOUS INSUFFICIENCY (CHRONIC) (PERIPHERAL) (15) Venous ulcer Code(s): I87.8 - OTHER SPECIFIED DISORDERS OF VEINS Assessment/Plan 61 y.o. male with PMH of DM, morbid obesity, CAD, CHF, AFIB, CKD, BPH, LLE compound fracture s/p external fixation with hardware in place, RLE cellulitis, LE infected ulcers receiving IV antibiotics in [place] presenting with urinary retention, KRUNAL and generalized rash and elevated Vancomycin levels Hx of RLE cellulitis/LLE infected ulcers - appears to have improved Rash resolving KRUNAL on CKD Urinary retention plan continue to monitor care of the fracture resp support diet no abx further plan awaited
--- NOTE | 2017-08-20 13:39 | PN ---
Progress Note, Physician History of Present Illness: pulmonary alert,on bipap ,-resp distress - Current Medication List Current Medications: Active Medications Acetaminophen (Tylenol -) 650 mg PO HS [facility] Last Admin: 08/19/17 22:55 Dose: 650 mg Al Hydroxide/Mg Hydroxide (Mylanta Oral Suspension -) 30 ml PO Q6H PRN PRN Reason: DYSPEPSIA Albuterol Sulfate (Ventolin 0.083% Nebulizer Soln -) 1 amp NEB Q4H PRN PRN Reason: SHORT OF BREATH/WHEEZING Last Admin: 08/20/17 05:15 Dose: 1 amp Albuterol/Ipratropium (Duoneb -) 1 amp NEB RTID [facility] Last Admin: 08/20/17 07:39 Dose: 1 amp Aspirin (Asa -) 81 mg PO DAILY [facility] Last Admin: 08/20/17 09:49 Dose: 81 mg Atenolol (Tenormin -) 100 mg PO BID [facility] Last Admin: 08/20/17 09:52 Dose: 100 mg Atorvastatin Calcium (Lipitor -) 80 mg PO [facility] Last Admin: 08/19/17 22:55 Dose: 80 mg Bisacodyl (Dulcolax -) 10 mg PO DAILY [facility] Last Admin: 08/20/17 09:50 Dose: 10 mg Bisacodyl (Dulcolax Suppository -) 10 mg RC PRN PRN PRN Reason: CONSTIPATION Collagenase (Santyl -) 1 applic TP DAILY [facility] Last Admin: 08/20/17 09:55 Dose: 1 applic Docusate Sodium (Colace -) 100 mg PO TID [facility] Last Admin: 08/20/17 06:03 Dose: 100 mg Furosemide (Lasix Injection -) 80 mg IVPUSH BID@0600,1400 [facility] Last Admin: 08/20/17 06:03 Dose: 80 mg Insulin Aspart (Novolog Vial Sliding Scale -) 1 vial SQ [facility]; Protocol Last Admin: 08/20/17 12:44 Dose: Not Given Insulin Detemir (Levemir Vial) 10 units SQ [facility] Last Admin: 08/19/17 22:57 Dose: 10 units Lactulose (Cephulac (Oral Use)) 20 gm PO TID [facility] Last Admin: 08/20/17 06:03 Dose: 20 gm Levothyroxine Sodium (Synthroid -) 100 mcg PO DAILY@0700 [facility] Last Admin: 08/20/17 06:09 Dose: 100 mcg Methylnaltrexone [place] (Relistor -) 12 mg SQ DAILY [facility] Last Admin: 08/20/17 10:03 Dose: 12 mg Metronidazole (Metrogel 0.75% Gel -) 1 applic TP BID [facility] Last Admin: 08/20/17 09:53 Dose: 1 applic Mupirocin (Bactroban 2% Ointment -) 1 applic TP DAILY [facility] Last Admin: 08/20/17 09:55 Dose: 1 applic Nystatin (Nystop Powder -) 1 applic TP DAILY [facility] Last Admin: 08/19/17 09:20 Dose: 1 applic Oxycodone HCl (Roxicodone -) 10 mg PO Q4H PRN PRN Reason: PAIN LEVEL 1-5 Last Admin: 08/20/17 06:03 Dose: 10 mg Rivaroxaban (Xarelto -) 15 mg PO DAILY@1800 [facility] Last Admin: 08/19/17 17:13 Dose: 15 mg Silver Sulfadiazine (Silvadene -) 1 applic TP BID [facility] Last Admin: 08/19/17 22:56 Dose: 1 applic Tamsulosin HCl (Flomax -) 0.4 mg PO DAILY@0830 [facility] Last Admin: 08/20/17 08:13 Dose: 0.4 mg - Objective Vital Signs: Vital Signs Temperature 97.9 F 08/20/17 08:25 Pulse Rate 79 08/20/17 08:25 Respiratory Rate 21 08/20/17 08:25 Blood Pressure 102/61 08/20/17 08:25 O2 Sat by Pulse Oximetry (%) 95 08/20/17 07:47 Constitutional: Yes: Calm, Other (morbidly obese) Eyes: Yes: WNL Neck: Yes: WNL Cardiovascular: Yes: Pulse Irregular, S1, S2 Respiratory: Yes: Diminished Gastrointestinal: Yes: Normal Bowel Sounds, Soft Extremities: Yes: WNL Edema: Yes Labs: CBC, BMP 08/15/17 06:00 08/20/17 06:30 INR, PTT INR 1.96 (0.82-1.09) H 08/08/17 05:34 Assessment/Plan Problem List - Problems (1) Acute on chronic diastolic (congestive) heart failure Code(s): I50.33 - ACUTE ON CHRONIC DIASTOLIC (CONGESTIVE) HEART FAILURE (2) Acute on chronic renal failure Code(s): N17.9 - ACUTE KIDNEY FAILURE, UNSPECIFIED; N18.9 - CHRONIC KIDNEY DISEASE, UNSPECIFIED (3) Atrial fibrillation Code(s): I48.91 - UNSPECIFIED ATRIAL FIBRILLATION Qualifiers: Atrial fibrillation type: chronic Qualified Code(s): I48.2 - Chronic atrial fibrillation (4) CAD (coronary artery disease) Code(s): I25.10 - ATHSCL HEART DISEASE OF [place] CORONARY ARTERY W/O ANG PCTRS (5) COPD (chronic obstructive pulmonary disease) Code(s): J44.9 - CHRONIC OBSTRUCTIVE PULMONARY DISEASE, UNSPECIFIED (6) Diabetes Code(s): E11.9 - TYPE 2 DIABETES MELLITUS WITHOUT COMPLICATIONS (7) Obesities, morbid Code(s): E66.01 - MORBID (SEVERE) OBESITY DUE TO EXCESS CALORIES (8) Pulmonary HTN Code(s): I27.20 - PULMONARY HYPERTENSION, UNSPECIFIED (9) Sleep apnea Code(s): G47.30 - SLEEP APNEA, UNSPECIFIED (10) Volume overload Code(s): E87.70 - FLUID OVERLOAD, UNSPECIFIED Assessment/Plan Acute on Chronic Diastolic Heart Failure Acute on Chronic Renal Failure Volume Overload Pulmonary HTN Atrial Fibrillation CAD COPD Morbid Obesity ASHLEY/OHS - lasix IV if BP tolerates - monitor urine output, creatinine - inhaled bronchodilators - O2 to keep SpO2 >90% - BiPAP to assist in work of breathing - rate controlled with atenolol - anticoagulation DR MACHADO
[2017-08-20] MEDS: SILVER SULFADIAZINE 1% TOP CREAM 50 GM JAR TP SCH ×2 (14:05→22:04)
[2017-08-20] MEDS: NYSTATIN POWDER 100,000 UNITS/GM - 15 GM TOPICAL POWDER TP SCH (14:06)
--- NOTE | 2017-08-20 15:39 | PN ---
Progress Note, Physician History of Present Illness: Pt seen and examined at bedside. He does not feel much different today. - Current Medication List Current Medications: Active Medications Acetaminophen (Tylenol -) 650 mg PO HS [facility] Last Admin: 08/19/17 22:55 Dose: 650 mg Al Hydroxide/Mg Hydroxide (Mylanta Oral Suspension -) 30 ml PO Q6H PRN PRN Reason: DYSPEPSIA Albuterol Sulfate (Ventolin 0.083% Nebulizer Soln -) 1 amp NEB Q4H PRN PRN Reason: SHORT OF BREATH/WHEEZING Last Admin: 08/20/17 05:15 Dose: 1 amp Albuterol/Ipratropium (Duoneb -) 1 amp NEB RTID [facility] Last Admin: 08/20/17 13:41 Dose: 1 amp Aspirin (Asa -) 81 mg PO DAILY [facility] Last Admin: 08/20/17 09:49 Dose: 81 mg Atenolol (Tenormin -) 100 mg PO BID [facility] Last Admin: 08/20/17 09:52 Dose: 100 mg Atorvastatin Calcium (Lipitor -) 80 mg PO HS [facility] Last Admin: 08/19/17 22:55 Dose: 80 mg Bisacodyl (Dulcolax -) 10 mg PO DAILY [facility] Last Admin: 08/20/17 09:50 Dose: 10 mg Bisacodyl (Dulcolax Suppository -) 10 mg RC PRN PRN PRN Reason: CONSTIPATION Collagenase (Santyl -) 1 applic TP DAILY [facility] Last Admin: 08/20/17 09:55 Dose: 1 applic Docusate Sodium (Colace -) 100 mg PO TID [facility] Last Admin: 08/20/17 13:39 Dose: 100 mg Furosemide (Lasix Injection -) 80 mg IVPUSH BID@0600,1400 [facility] Last Admin: 08/20/17 13:39 Dose: 80 mg Insulin Aspart (Novolog Vial Sliding Scale -) 1 vial SQ [facility]; Protocol Last Admin: 08/20/17 12:44 Dose: Not Given Insulin Detemir (Levemir Vial) 10 units SQ [facility] Last Admin: 08/19/17 22:57 Dose: 10 units Lactulose (Cephulac (Oral Use)) 20 gm PO TID [facility] Last Admin: 08/20/17 13:39 Dose: 20 gm Levothyroxine Sodium (Synthroid -) 100 mcg PO DAILY@0700 [facility] Last Admin: 08/20/17 06:09 Dose: 100 mcg Methylnaltrexone [place] (Relistor -) 12 mg SQ DAILY [facility] Last Admin: 08/20/17 10:03 Dose: 12 mg Metronidazole (Metrogel 0.75% Gel -) 1 applic TP BID [facility] Last Admin: 08/20/17 09:53 Dose: 1 applic Mupirocin (Bactroban 2% Ointment -) 1 applic TP DAILY [facility] Last Admin: 08/20/17 09:55 Dose: 1 applic Nystatin (Nystop Powder -) 1 applic TP DAILY [facility] Last Admin: 08/20/17 14:06 Dose: 1 applic Oxycodone HCl (Roxicodone -) 10 mg PO Q4H PRN PRN Reason: PAIN LEVEL 1-5 Last Admin: 08/20/17 13:39 Dose: 10 mg Rivaroxaban (Xarelto -) 15 mg PO DAILY@1800 [facility] Last Admin: 08/19/17 17:13 Dose: 15 mg Silver Sulfadiazine (Silvadene -) 1 applic TP BID [facility] Last Admin: 08/20/17 14:05 Dose: 1 applic Tamsulosin HCl (Flomax -) 0.4 mg PO DAILY@0830 [facility] Last Admin: 08/20/17 08:13 Dose: 0.4 mg - Objective Vital Signs: Vital Signs Temperature 97.9 F 08/20/17 08:25 Pulse Rate 79 08/20/17 08:25 Respiratory Rate 21 08/20/17 08:25 Blood Pressure 102/61 08/20/17 08:25 O2 Sat by Pulse Oximetry (%) 95 08/20/17 07:47 Constitutional: Yes: Calm Eyes: Yes: Conjunctiva Clear HENT: Yes: Atraumatic Neck: Yes: Supple Cardiovascular: Yes: S1, S2 Respiratory: Yes: CTA Bilaterally Gastrointestinal: Yes: Soft, Abdomen, Obese Genitourinary: Yes: WNL Edema: Yes Edema: LLE: 2+, RLE: 2+ Integumentary: Yes: Venous Stasis Changes Neurological: Yes: Oriented Psychiatric: Yes: Oriented Labs: CBC, BMP 08/15/17 06:00 08/20/17 06:30 INR, PTT INR 1.96 (0.82-1.09) H 08/08/17 05:34 Problem List - Problems (1) Acute renal insufficiency Code(s): N28.9 - DISORDER OF KIDNEY AND URETER, UNSPECIFIED (2) Atrial fibrillation Code(s): I48.91 - UNSPECIFIED ATRIAL FIBRILLATION Qualifiers: Atrial fibrillation type: chronic Qualified Code(s): I48.2 - Chronic atrial fibrillation (3) BPH (benign prostatic hyperplasia) Code(s): N40.0 - BENIGN PROSTATIC HYPERPLASIA WITHOUT LOWER URINRY TRACT SYMP (4) CHF (congestive heart failure) Code(s): I50.9 - HEART FAILURE, UNSPECIFIED Qualifiers: Heart failure type: unspecified Heart failure chronicity: acute on chronic Qualified Code(s): I50.9 - Heart failure, unspecified (5) Acute renal failure (ARF) Code(s): N17.9 - ACUTE KIDNEY FAILURE, UNSPECIFIED (6) CAD (coronary artery disease) Code(s): I25.10 - ATHSCL HEART DISEASE OF [place] CORONARY ARTERY W/O ANG PCTRS (7) CKD (chronic kidney disease) Code(s): N18.9 - CHRONIC KIDNEY DISEASE, UNSPECIFIED (8) Cellulitis Code(s): L03.90 - CELLULITIS, UNSPECIFIED Assessment/Plan Current Medications Generic Name Dose Route Start Last Admin Trade Name Freq PRN Reason Stop Dose Admin Acetaminophen 650 mg 08/07/17 22:00 08/19/17 22:55 Tylenol - PO 650 mg HS NEIL Administration Al Hydroxide/Mg Hydroxide 30 ml 08/17/17 12:00 Mylanta Oral Suspension - PO Q6H PRN DYSPEPSIA Albuterol Sulfate 1 amp 08/17/17 10:47 08/20/17 05:15 Ventolin 0.083% Nebulizer Soln - NEB 1 amp Q4H PRN Administration SHORT OF BREATH/WHEEZING Albuterol/Ipratropium 1 amp 08/17/17 14:00 08/20/17 13:41 Duoneb - NEB 1 amp RTID [facility] Administration Aspirin 81 mg 08/11/17 10:00 08/20/17 09:49 Asa - PO 81 mg DAILY [facility] Administration Atenolol 100 mg 08/07/17 13:35 08/20/17 09:52 Tenormin - PO 100 mg BID [facility] Administration Atorvastatin Calcium 80 mg 08/07/17 22:00 08/19/17 22:55 Lipitor - PO 80 mg HS [facility]IL Administration Bisacodyl 10 mg 08/07/17 10:00 08/20/17 09:50 Dulcolax - PO 10 mg DAILY [facility] Administration Bisacodyl 10 mg 08/15/17 17:44 Dulcolax Suppository - RC PRN PRN CONSTIPATION Collagenase 1 applic 08/07/17 10:00 08/20/17 09:55 Santyl - TP 1 applic DAILY [facility] Administration Docusate Sodium 100 mg 08/07/17 13:45 08/20/17 13:39 Colace - PO 100 mg TID [facility] Administration Furosemide 80 mg 08/19/17 15:30 08/20/17 13:39 Lasix Injection - IVPUSH 80 mg BID@0600,1400 [facility] Administration Insulin Aspart 1 vial 08/07/17 07:00 08/20/17 12:44 Novolog Vial Sliding Scale - SQ Not Given ACHS [facility] Protocol Insulin Detemir 10 units 08/19/17 22:00 08/19/17 22:57 Levemir Vial SQ 10 units HS [facility] Administration Lactulose 20 gm 08/18/17 14:00 08/20/17 13:39 Cephulac (Oral Use) PO 20 gm TID [facility] Administration Levothyroxine Sodium 100 mcg 08/07/17 07:00 08/20/17 06:09 Synthroid - PO 100 mcg DAILY@0700 [facility] Administration Methylnaltrexone [place] 12 mg 08/19/17 10:00 08/20/17 10:03 Relistor - SQ 12 mg DAILY [facility] Administration Metronidazole 1 applic 08/07/17 10:00 08/20/17 09:53 Metrogel 0.75% Gel - TP 1 applic BID [facility] Administration Mupirocin 1 applic 08/07/17 10:00 08/20/17 09:55 Bactroban 2% Ointment - TP 1 applic DAILY [facility] Administration Nystatin 1 applic 08/11/17 10:00 08/20/17 14:06 Nystop Powder - TP 1 applic DAILY [facility] Administration Oxycodone HCl 10 mg 08/13/17 18:18 08/20/17 13:39 Roxicodone - PO 10 mg Q4H PRN Administration PAIN LEVEL 1-5 Rivaroxaban 15 mg 08/16/17 18:00 08/19/17 17:13 Xarelto - PO 15 mg DAILY@1800 [facility] Administration Silver Sulfadiazine 1 applic 08/17/17 12:00 08/20/17 14:05 Silvadene - TP 1 applic BID [facility] Administration Tamsulosin HCl 0.4 mg 08/07/17 11:45 08/20/17 08:13 Flomax - PO 0.4 mg DAILY@0830 [facility] Administration Impression 1. CKD 2. KRUNAL 3. volume overload 4. morbid obesity 5. CAD 6. cellulitis 7. s/p fall 8. a-fib 9. DM 10. hypothyroidism 11. HLD 12. CHF 13. s/p leg fracture 14. hyperkalemia 15. constipation Plan - cont IV lasix - monitor renal function - will add metolazone if volume status does not improve - avoid nephrotoxic agents - will hold off jasmyne as he has had hyperkalemia on multiple occasions - renal diet
--- NOTE | 2017-08-20 16:39 | PN ---
GI Progress Note Subjective: GI NOte: Having good results with Miralax and now feels overwhelmed. Will decrease dosage to once a day - Objective Vital Signs: Vital Signs Temperature 97.9 F 08/20/17 08:25 Pulse Rate 79 08/20/17 08:25 Respiratory Rate 21 08/20/17 08:25 Blood Pressure 102/61 08/20/17 08:25 O2 Sat by Pulse Oximetry (%) 95 08/20/17 07:47 Constitutional: Calm Gastrointestinal Inspection: Yes: Other (left lower abdominal wall edema persists but is not hot, red or tender) ...Auscultate: Yes: Normoactive Bowel Sounds Labs: CBC, BMP 08/15/17 06:00 08/20/17 06:30 INR, PTT INR 1.96 (0.82-1.09) H 08/08/17 05:34 Problem List - Problems (1) Constipation by delayed colonic transit Assessment/Plan: Constipation reflects his bedridden state compounded by narcotic analgesics. Will decrease Miralax to once a day and stop Relistor. Code(s): K59.01 - SLOW TRANSIT CONSTIPATION (2) Rectal mucosa prolapse Code(s): K62.3 - RECTAL PROLAPSE
[2017-08-20] MEDS ORDERED: INSULIN (NOVOLOG) ASPART 100 UNITS/ML 10ML VIAL ONE ×2 (17:04→21:57)
[2017-08-20] MEDS: RIVAROXABAN 15 MG TABLET PO SCH (17:11)
[2017-08-20] MEDS: ACETAMINOPHEN 325 MG TABLET (FP) PO SCH (22:02)
[2017-08-20] MEDS: INSULIN (LEVEMIR) 100 UNITS/ML UNITS SQ SCH (22:03)
[2017-08-20] MEDS: ATORVASTATIN CA 80 MG TABLET (FP) PO SCH (22:03)
[2017-08-21] MEDS: ALBUTEROL SO4 0.083% IH SOL 2.5 MG/3 ML VIAL.NEB. NEB PRN (00:18)
[2017-08-21] MEDS: oxyCODONE HCL 5 MG TABLET PO PRN ×3 (00:22→14:46)
[2017-08-21] MEDS ORDERED: PT OWN MED DRAWER 7, Y5N ONE ×2 (06:08→17:01)
[2017-08-21] MEDS: LEVOTHYROXINE NA 100 MCG TABLET (FP) PO SCH (06:32)
[2017-08-21] MEDS: INSULIN SLIDING SCALE (NOVOLOG) 1 VIAL SQ SCH ×4 (06:32→22:03)
[2017-08-21] MEDS: FUROSEMIDE 40 MG/4 ML INJECTABLE VIAL IVPUSH SCH ×2 (06:32→14:47)
[2017-08-21] MEDS ORDERED: INSULIN (NOVOLOG) ASPART 100 UNITS/ML 10ML VIAL ONE ×2 (06:49→21:57)
[2017-08-21] MEDS: ALBUTEROL SO4 2.5/IPRATROPIUM 0.5 INH SOL 3 ML VIAL.NEB. NEB SCH ×3 (07:20→20:50)
[2017-08-21 08:00] LABS: BASO % 0.5 % (0-2.0); EOS % 3.3 % (0-4.5); HEMATOCRIT 30.5 % (35.4-49); HEMOGLOBIN 9.5 GM/dL (11.7-16.9); LYMPH % 10.6 % (8-40); MCH 29.8 pg (25.7-33.7); MCHC 31.3 g/dl (32.0-35.9); MEAN CELL VOLUME 95.3 fl (80-96); MEAN PLT VOLUME 8.1 fl (7.5-11.1); MONO % 12.7 % (3.8-10.2); NEUT % 72.9 % (42.8-82.8); PLATELET COUNT 151 K/MM3 (134-434); RBC 3.19 M/mm3 (4.00-5.60); RDW 17.4 % (11.9-15.9)
[2017-08-21] MEDS: TAMSULOSIN HCL 0.4 MG CAP.ER.24H (FP) PO SCH (08:14)
--- NOTE | 2017-08-21 08:30 | PN ---
Progress Note, Physician - Current Medication List Current Medications: Active Medications Acetaminophen (Tylenol -) 650 mg PO [facility] Last Admin: 08/20/17 22:02 Dose: 650 mg Al Hydroxide/Mg Hydroxide (Mylanta Oral Suspension -) 30 ml PO Q6H PRN PRN Reason: DYSPEPSIA Albuterol Sulfate (Ventolin 0.083% Nebulizer Soln -) 1 amp NEB Q4H PRN PRN Reason: SHORT OF BREATH/WHEEZING Last Admin: 08/21/17 00:18 Dose: 1 amp Albuterol/Ipratropium (Duoneb -) 1 amp NEB RTID [facility] Last Admin: 08/20/17 20:25 Dose: 1 amp Aspirin (Asa -) 81 mg PO DAILY [facility] Last Admin: 08/20/17 09:49 Dose: 81 mg Atenolol (Tenormin -) 100 mg PO BID [facility] Last Admin: 08/20/17 22:03 Dose: 100 mg Atorvastatin Calcium (Lipitor -) 80 mg PO [facility] Last Admin: 08/20/17 22:03 Dose: 80 mg Bisacodyl (Dulcolax -) 10 mg PO DAILY [facility] Last Admin: 08/20/17 09:50 Dose: 10 mg Bisacodyl (Dulcolax Suppository -) 10 mg RC PRN PRN PRN Reason: CONSTIPATION Collagenase (Santyl -) 1 applic TP DAILY [facility] Last Admin: 08/20/17 09:55 Dose: 1 applic Furosemide (Lasix Injection -) 80 mg IVPUSH BID@0600,1400 [facility] Last Admin: 08/21/17 06:32 Dose: 80 mg Insulin Aspart (Novolog Vial Sliding Scale -) 1 vial SQ [facility]; Protocol Last Admin: 08/21/17 06:32 Dose: Not Given Insulin Detemir (Levemir Vial) 10 units SQ [facility] Last Admin: 08/20/17 22:03 Dose: 10 units Levothyroxine Sodium (Synthroid -) 100 mcg PO DAILY@0700 [facility] Last Admin: 08/21/17 06:32 Dose: 100 mcg Metronidazole (Metrogel 0.75% Gel -) 1 applic TP BID [facility] Last Admin: 08/20/17 22:03 Dose: 1 applic Mupirocin (Bactroban 2% Ointment -) 1 applic TP DAILY [facility] Last Admin: 08/20/17 09:55 Dose: 1 applic Nystatin (Nystop Powder -) 1 applic TP DAILY [facility] Last Admin: 08/20/17 14:06 Dose: 1 applic Polyethylene Glycol (Miralax (For Daily Use) -) 17 gm PO DAILY [facility] Rivaroxaban (Xarelto -) 15 mg PO DAILY@1800 [facility] Last Admin: 08/20/17 17:11 Dose: 15 mg Silver Sulfadiazine (Silvadene -) 1 applic TP BID [facility] Last Admin: 08/20/17 22:04 Dose: 1 applic Tamsulosin HCl (Flomax -) 0.4 mg PO DAILY@0830 [facility] Last Admin: 08/21/17 08:14 Dose: 0.4 mg - Objective Vital Signs: Vital Signs Temperature 98.5 F 08/21/17 07:45 Pulse Rate 81 08/21/17 07:45 Respiratory Rate 20 08/21/17 06:00 Blood Pressure 84/61 08/21/17 07:45 O2 Sat by Pulse Oximetry (%) 96 08/20/17 22:00 Eyes: Yes: WNL, Conjunctiva Clear, EOM Intact HENT: Yes: WNL, Atraumatic, Normocephalic Neck: Yes: WNL, Supple, Trachea Midline Cardiovascular: Yes: WNL, Regular Rate and Rhythm Respiratory: Yes: WNL, Regular, CTA Bilaterally Gastrointestinal: Yes: WNL, Normal Bowel Sounds Genitourinary: Yes: WNL Musculoskeletal: Yes: WNL Extremities: Yes: WNL Edema: Yes Integumentary: Yes: WNL Neurological: Yes: WNL, Alert, Oriented ...Motor Strength: WNL Psychiatric: Yes: WNL Labs: CBC, BMP 08/21/17 07:00 INR, PTT INR 1.96 (0.82-1.09) H 08/08/17 05:34 Assessment/Plan IMP: Acute on chronic RF, hyperK+, improved Permanent AF CAD s/p PCI Chronic diastolic CHF Plan: - agree that pt is again developing signs of fluid overload - continue IV Lasix - monitor renal function - avoid nephrotoxic agents - holding UVALDO-I as he has had hyperkalemia on multiple occasions - renal diet -Xarelto, adjusted for renal fx. coverage for dr. Riley
[2017-08-21 08:40] LABS: CHLORIDE 103 mmol/L (98-107); POTASSIUM 4.5 mmol/L (3.5-5.1); SODIUM 140 mmol/L (136-145)
[2017-08-21 08:47] LABS: ALBUMIN 2.6 g/dl (3.4-5.0); ALK PHOS 96 U/L (45-117); ANION GAP 8 (8-16); BILIRUBIN,TOTAL 0.7 mg/dL (0.2-1.0); BLOOD UREA NITROGEN 74 mg/dL (7-18); CALCIUM 8.1 mg/dL (8.5-10.1); CO2 29 mmol/L (21-32); GLUCOSE,RANDOM 142 mg/dL (74-106); SGOT/AST 13 U/L (15-37); SGPT/ALT 15 U/L (12-78); TOT PROT 7.3 g/dl (6.4-8.2)
--- NOTE | 2017-08-21 10:18 | PN ---
Progress Note (short form) - Note Progress Note: PULMONARY Remains on BiPAP. States making good amount of urine with IV lasix, less bloated. Last Vital Signs Temp Pulse Resp BP Pulse Ox 98.5 F 81 20 84/61 96 08/21/17 07:45 08/21/17 07:45 08/21/17 06:00 08/21/17 07:45 08/20/17 22:00 Intake & Output 08/18/17 08/19/17 08/20/17 08/21/17 23:59 23:59 23:59 23:59 Intake Total 250 440 660 Output Total 500 1425 1650 1350 Balance -250 -985 -990 -1350 Weight 216.137 kg 215.116 kg 213.324 kg Gen: on BiPAP Heart: RRR Lung: distant breath sounds Abd: soft, obese, edematous Ext: + edema CBC, BMP 08/21/17 07:00 08/21/17 07:00 Active Medications Acetaminophen (Tylenol -) 650 mg PO [facility] Last Admin: 08/20/17 22:02 Dose: 650 mg Al Hydroxide/Mg Hydroxide (Mylanta Oral Suspension -) 30 ml PO Q6H PRN PRN Reason: DYSPEPSIA Albuterol Sulfate (Ventolin 0.083% Nebulizer Soln -) 1 amp NEB Q4H PRN PRN Reason: SHORT OF BREATH/WHEEZING Last Admin: 08/21/17 00:18 Dose: 1 amp Albuterol/Ipratropium (Duoneb -) 1 amp NEB RTID [facility] Last Admin: 08/20/17 20:25 Dose: 1 amp Aspirin (Asa -) 81 mg PO DAILY [facility] Last Admin: 08/20/17 09:49 Dose: 81 mg Atenolol (Tenormin -) 100 mg PO BID [facility] Last Admin: 08/20/17 22:03 Dose: 100 mg Atorvastatin Calcium (Lipitor -) 80 mg PO HS [facility] Last Admin: 08/20/17 22:03 Dose: 80 mg Bisacodyl (Dulcolax -) 10 mg PO DAILY [facility] Last Admin: 08/20/17 09:50 Dose: 10 mg Bisacodyl (Dulcolax Suppository -) 10 mg RC PRN PRN PRN Reason: CONSTIPATION Collagenase (Santyl -) 1 applic TP DAILY [facility] Last Admin: 08/20/17 09:55 Dose: 1 applic Furosemide (Lasix Injection -) 80 mg IVPUSH BID@0600,1400 [facility] Last Admin: 08/21/17 06:32 Dose: 80 mg Insulin Aspart (Novolog Vial Sliding Scale -) 1 vial SQ ACHS [facility]; Protocol Last Admin: 08/21/17 06:32 Dose: Not Given Insulin Detemir (Levemir Vial) 10 units SQ HS [facility] Last Admin: 08/20/17 22:03 Dose: 10 units Levothyroxine Sodium (Synthroid -) 100 mcg PO DAILY@0700 [facility] Last Admin: 08/21/17 06:32 Dose: 100 mcg Metronidazole (Metrogel 0.75% Gel -) 1 applic TP BID [facility] Last Admin: 08/20/17 22:03 Dose: 1 applic Mupirocin (Bactroban 2% Ointment -) 1 applic TP DAILY [facility] Last Admin: 08/20/17 09:55 Dose: 1 applic Nystatin (Nystop Powder -) 1 applic TP DAILY [facility] Last Admin: 08/20/17 14:06 Dose: 1 applic Polyethylene Glycol (Miralax (For Daily Use) -) 17 gm PO DAILY [facility] Rivaroxaban (Xarelto -) 15 mg PO DAILY@1800 [facility] Last Admin: 08/20/17 17:11 Dose: 15 mg Silver Sulfadiazine (Silvadene -) 1 applic TP BID [facility] Last Admin: 08/20/17 22:04 Dose: 1 applic Tamsulosin HCl (Flomax -) 0.4 mg PO DAILY@0830 [facility] Last Admin: 08/21/17 08:14 Dose: 0.4 mg A/P Acute on Chronic Diastolic Heart Failure Acute on Chronic Renal Failure Volume Overload Pulmonary HTN Atrial Fibrillation CAD COPD Morbid Obesity ASHLEY/OHS - continue lasix - monitor urine output, creatinine - inhaled bronchodilators - no indication for systemic steroids at this time - O2 to keep SpO2 >90% - BiPAP to assist in work of breathing - rate controlled with atenolol - continue anticoagulation Problem List - Problems (1) Acute on chronic diastolic (congestive) heart failure Code(s): I50.33 - ACUTE ON CHRONIC DIASTOLIC (CONGESTIVE) HEART FAILURE (2) Acute on chronic renal failure Code(s): N17.9 - ACUTE KIDNEY FAILURE, UNSPECIFIED; N18.9 - CHRONIC KIDNEY DISEASE, UNSPECIFIED (3) Atrial fibrillation Code(s): I48.91 - UNSPECIFIED ATRIAL FIBRILLATION Qualifiers: Atrial fibrillation type: chronic Qualified Code(s): I48.2 - Chronic atrial fibrillation (4) CAD (coronary artery disease) Code(s): I25.10 - ATHSCL HEART DISEASE OF [place] CORONARY ARTERY W/O ANG PCTRS (5) COPD (chronic obstructive pulmonary disease) Code(s): J44.9 - CHRONIC OBSTRUCTIVE PULMONARY DISEASE, UNSPECIFIED (6) Diabetes Code(s): E11.9 - TYPE 2 DIABETES MELLITUS WITHOUT COMPLICATIONS (7) Obesities, morbid Code(s): E66.01 - MORBID (SEVERE) OBESITY DUE TO EXCESS CALORIES (8) Pulmonary HTN Code(s): I27.20 - PULMONARY HYPERTENSION, UNSPECIFIED (9) Sleep apnea Code(s): G47.30 - SLEEP APNEA, UNSPECIFIED (10) Volume overload Code(s): E87.70 - FLUID OVERLOAD, UNSPECIFIED
[2017-08-21] MEDS: BISACODYL 5 MG TABLET.DR (FP) PO SCH (10:45)
[2017-08-21] MEDS: ASPIRIN 81 MG CHEWABLE TABLETS PO SCH (10:45)
[2017-08-21] MEDS: POLYETHYLENE GLYCOL 3350 119 GM BTL PO SCH (10:46)
[2017-08-21] MEDS: ATENOLOL 50 MG TABLET (FP) PO SCH ×2 (10:46→22:03)
[2017-08-21] MEDS: SILVER SULFADIAZINE 1% TOP CREAM 50 GM JAR TP SCH ×2 (10:53→22:04)
[2017-08-21] MEDS: MUPIROCIN 2% TOPICAL OINTMENT 22 GM TUBE TP SCH (10:54)
[2017-08-21] MEDS: metroNIDAZOLE 0.75% TOPICAL GEL 45 GM TUBE TP SCH ×2 (10:55→22:04)
[2017-08-21] MEDS: NYSTATIN POWDER 100,000 UNITS/GM - 15 GM TOPICAL POWDER TP SCH (10:55)
[2017-08-21] MEDS: COLLAGENASE CLOSTRIDIUM HIST. 30 GRAMS TUBE TP SCH (11:06)
--- NOTE | 2017-08-21 12:22 | PN ---
Progress Note, Physician History of Present Illness: stable doing well in room no complaints - Current Medication List Current Medications: Active Medications Acetaminophen (Tylenol -) 650 mg PO HS [facility] Last Admin: 08/20/17 22:02 Dose: 650 mg Al Hydroxide/Mg Hydroxide (Mylanta Oral Suspension -) 30 ml PO Q6H PRN PRN Reason: DYSPEPSIA Albuterol Sulfate (Ventolin 0.083% Nebulizer Soln -) 1 amp NEB Q4H PRN PRN Reason: SHORT OF BREATH/WHEEZING Last Admin: 08/21/17 00:18 Dose: 1 amp Albuterol/Ipratropium (Duoneb -) 1 amp NEB RTID [facility] Last Admin: 08/21/17 07:20 Dose: 1 amp Aspirin (Asa -) 81 mg PO DAILY [facility] Last Admin: 08/21/17 10:45 Dose: 81 mg Atenolol (Tenormin -) 100 mg PO BID [facility] Last Admin: 08/21/17 10:46 Dose: 100 mg Atorvastatin Calcium (Lipitor -) 80 mg PO [facility] Last Admin: 08/20/17 22:03 Dose: 80 mg Bisacodyl (Dulcolax -) 10 mg PO DAILY [facility] Last Admin: 08/21/17 10:45 Dose: 10 mg Bisacodyl (Dulcolax Suppository -) 10 mg RC PRN PRN PRN Reason: CONSTIPATION Collagenase (Santyl -) 1 applic TP DAILY [facility] Last Admin: 08/21/17 11:06 Dose: Not Given Furosemide (Lasix Injection -) 80 mg IVPUSH BID@0600,1400 [facility] Last Admin: 08/21/17 06:32 Dose: 80 mg Insulin Aspart (Novolog Vial Sliding Scale -) 1 vial SQ [facility]; Protocol Last Admin: 08/21/17 11:07 Dose: Not Given Insulin Detemir (Levemir Vial) 10 units SQ [facility] Last Admin: 08/20/17 22:03 Dose: 10 units Levothyroxine Sodium (Synthroid -) 100 mcg PO DAILY@0700 [facility] Last Admin: 08/21/17 06:32 Dose: 100 mcg Metronidazole (Metrogel 0.75% Gel -) 1 applic TP BID [facility] Last Admin: 08/21/17 10:55 Dose: 1 applic Mupirocin (Bactroban 2% Ointment -) 1 applic TP DAILY [facility] Last Admin: 08/21/17 10:54 Dose: 1 applic Nystatin (Nystop Powder -) 1 applic TP DAILY [facility] Last Admin: 08/21/17 10:55 Dose: 1 applic Polyethylene Glycol (Miralax (For Daily Use) -) 17 gm PO DAILY [facility] Last Admin: 08/21/17 10:46 Dose: 17 gm Rivaroxaban (Xarelto -) 15 mg PO DAILY@1800 [facility] Last Admin: 08/20/17 17:11 Dose: 15 mg Silver Sulfadiazine (Silvadene -) 1 applic TP BID [facility] Last Admin: 08/21/17 10:53 Dose: 1 applic Tamsulosin HCl (Flomax -) 0.4 mg PO DAILY@0830 [facility] Last Admin: 08/21/17 08:14 Dose: 0.4 mg - Objective Vital Signs: Vital Signs Temperature 98.4 F 08/21/17 10:00 Pulse Rate 78 08/21/17 10:00 Respiratory Rate 19 08/21/17 10:00 Blood Pressure 104/66 08/21/17 10:00 O2 Sat by Pulse Oximetry (%) 96 08/21/17 07:20 Constitutional: Yes: No Distress, Calm, Obese Cardiovascular: Yes: Regular Rate and Rhythm Respiratory: Yes: Regular, Poor Air Entry (bases) Gastrointestinal: Yes: Normal Bowel Sounds, Soft Musculoskeletal: Yes: WNL Extremities: Yes: Other Neurological: Yes: Alert, Oriented Psychiatric: Yes: Alert, Oriented Labs: CBC, BMP 08/21/17 07:00 08/21/17 07:00 INR, PTT INR 1.96 (0.82-1.09) H 08/08/17 05:34 Assessment/Plan Problem List - Problems (1) Acute renal insufficiency Code(s): N28.9 - DISORDER OF KIDNEY AND URETER, UNSPECIFIED (2) Atrial fibrillation Code(s): I48.91 - UNSPECIFIED ATRIAL FIBRILLATION Qualifiers: Atrial fibrillation type: chronic Qualified Code(s): I48.2 - Chronic atrial fibrillation (3) BPH (benign prostatic hyperplasia) Code(s): N40.0 - BENIGN PROSTATIC HYPERPLASIA WITHOUT LOWER URINRY TRACT SYMP (4) CHF (congestive heart failure) Code(s): I50.9 - HEART FAILURE, UNSPECIFIED Qualifiers: Heart failure type: unspecified Heart failure chronicity: acute on chronic Qualified Code(s): I50.9 - Heart failure, unspecified (5) Acute renal failure (ARF) Code(s): N17.9 - ACUTE KIDNEY FAILURE, UNSPECIFIED (6) CAD (coronary artery disease) Code(s): I25.10 - ATHSCL HEART DISEASE OF [place] CORONARY ARTERY W/O ANG PCTRS (7) COPD (chronic obstructive pulmonary disease) Code(s): J44.9 - CHRONIC OBSTRUCTIVE PULMONARY DISEASE, UNSPECIFIED (8) Cellulitis of right leg Code(s): L03.115 - CELLULITIS OF RIGHT LOWER LIMB (9) Diabetes Code(s): E11.9 - TYPE 2 DIABETES MELLITUS WITHOUT COMPLICATIONS (10) Dyslipidemia Code(s): E78.5 - HYPERLIPIDEMIA, UNSPECIFIED (11) Obesities, morbid Code(s): E66.01 - MORBID (SEVERE) OBESITY DUE TO EXCESS CALORIES (12) Open left ankle fracture Code(s): S82.892B - OTH FRACTURE OF LEFT LOWER LEG, INIT FOR OPN FX TYPE I/2 Qualifiers: Encounter type: initial encounter (13) Sleep apnea Code(s): G47.30 - SLEEP APNEA, UNSPECIFIED (14) Venous (peripheral) insufficiency Code(s): I87.2 - VENOUS INSUFFICIENCY (CHRONIC) (PERIPHERAL) (15) Venous ulcer Code(s): I87.8 - OTHER SPECIFIED DISORDERS OF VEINS Assessment/Plan 61 y.o. male with PMH of DM, morbid obesity, CAD, CHF, AFIB, CKD, BPH, LLE compound fracture s/p external fixation with hardware in place, RLE cellulitis, LE infected ulcers receiving IV antibiotics in [place] presenting with urinary retention, KRUNAL and generalized rash and elevated Vancomycin levels Hx of RLE cellulitis/LLE infected ulcers - appears to have improved Rash resolving KRUNAL on CKD Urinary retention plan continue current mgmt nutrition rest continue d/w the
[2017-08-21] MEDS ORDERED: ACETAMINOPHEN 325 MG TABLET (FP) PO PRN (14:31)
[2017-08-21] MEDS ORDERED: oxyCODONE HCL 5 MG TABLET PO PRN (14:32)
--- NOTE | 2017-08-21 15:11 | PN ---
Physical Exam: SUBJECTIVE: Patient seen and examined. He complains of fluid in his ears with decreased hearing. OBJECTIVE: Vital Signs Period Temp Pulse Resp BP Sys/Mehta Pulse Ox Last 24 Hr 97.9 F-98.5 F 78-81 19-22 84-104/56-66 96-96 GENERAL: The patient is awake, alert, using BiPAP. LUNGS: Breath sounds equal, clear to auscultation bilaterally, no wheezes, no crackles, no accessory muscle use. HEART: Irregular. ABDOMEN: Obese, soft, nontender, nondistended, normoactive bowel sounds, no guarding, no rebound, no hepatosplenomegaly, no masses. EXTREMITIES: 2+ pulses, warm, well-perfused, 2+ edema, external fixator on LLE. Laboratory Results - last 24 hr 08/20/17 08/20/17 08/21/17 16:50 22:02 06:29 WBC RBC Hgb Hct MCV MCH MCHC RDW Plt Count MPV Neutrophils % Lymphocytes % Monocytes % Eosinophils % Basophils % Nucleated RBC % Sodium Potassium Chloride Carbon Dioxide Anion Gap BUN Creatinine Creat Clearance w eGFR POC Glucometer 250 187 147 Random Glucose Calcium Total Bilirubin AST ALT Alkaline Phosphatase Total Protein Albumin 08/21/17 08/21/17 08/21/17 07:00 07:00 11:04 WBC 6.0 RBC 3.19 L Hgb 9.5 L Hct 30.5 L MCV 95.3 MCH 29.8 MCHC 31.3 L RDW 17.4 H Plt Count 151 D MPV 8.1 Neutrophils % 72.9 Lymphocytes % 10.6 D Monocytes % 12.7 H Eosinophils % 3.3 Basophils % 0.5 Nucleated RBC % 0 Sodium 140 Potassium 4.5 Chloride 103 Carbon Dioxide 29 Anion Gap 8 BUN 74 H Creatinine 2.0 H Creat Clearance w eGFR 34.03 POC Glucometer 177 Random Glucose 142 H Calcium 8.1 L Total Bilirubin 0.7 AST 13 L D ALT 15 Alkaline Phosphatase 96 Total Protein 7.3 Albumin 2.6 L Active Medications Generic Name Dose Route Start Last Admin Trade Name Freq PRN Reason Stop Dose Admin Acetaminophen 650 mg 08/21/17 14:31 Tylenol - PO Q4H PRN PAIN LEVEL 1 - 3 Al Hydroxide/Mg Hydroxide 30 ml 08/17/17 12:00 Mylanta Oral Suspension - PO Q6H PRN DYSPEPSIA Albuterol Sulfate 1 amp 08/17/17 10:47 08/21/17 00:18 Ventolin 0.083% Nebulizer Soln - NEB 1 amp Q4H PRN Administration SHORT OF BREATH/WHEEZING Albuterol/Ipratropium 1 amp 08/17/17 14:00 08/21/17 07:20 Duoneb - NEB 1 amp RTID [facility] Administration Aspirin 81 mg 08/11/17 10:00 08/21/17 10:45 Asa - PO 81 mg DAILY [facility] Administration Atenolol 100 mg 08/07/17 13:35 08/21/17 10:46 Tenormin - PO 100 mg BID [facility] Administration Atorvastatin Calcium 80 mg 08/07/17 22:00 08/20/17 22:03 Lipitor - PO 80 mg HS [facility] Administration Bisacodyl 10 mg 08/07/17 10:00 08/21/17 10:45 Dulcolax - PO 10 mg DAILY [facility] Administration Bisacodyl 10 mg 08/15/17 17:44 Dulcolax Suppository - RC PRN PRN CONSTIPATION Collagenase 1 applic 08/07/17 10:00 08/21/17 11:06 Santyl - TP Not Given DAILY [facility] Furosemide 80 mg 08/19/17 15:30 08/21/17 14:47 Lasix Injection - IVPUSH 80 mg BID@0600,1400 [facility] Administration Insulin Aspart 1 vial 08/07/17 07:00 08/21/17 11:07 Novolog Vial Sliding Scale - SQ Not Given ACHS [facility] Protocol Insulin Detemir 10 units 08/19/17 22:00 08/20/17 22:03 Levemir Vial SQ 10 units HS [facility] Administration Levothyroxine Sodium 100 mcg 08/07/17 07:00 08/21/17 06:32 Synthroid - PO 100 mcg DAILY@0700 [facility] Administration Metronidazole 1 applic 08/07/17 10:00 08/21/17 10:55 Metrogel 0.75% Gel - TP 1 applic BID [facility] Administration Mupirocin 1 applic 08/07/17 10:00 08/21/17 10:54 Bactroban 2% Ointment - TP 1 applic DAILY [facility] Administration Nystatin 1 applic 08/11/17 10:00 08/21/17 10:55 Nystop Powder - TP 1 applic DAILY [facility] Administration Oxycodone HCl 5 mg 05/26/18 14:32 Roxicodone - PO Q4H PRN PAIN LEVEL 4 - 6 Oxycodone HCl 10 mg 08/21/17 14:32 08/21/17 14:46 Roxicodone - PO 10 mg Q4H PRN Administration PAIN LEVEL 7 - 10 Polyethylene Glycol 17 gm 08/21/17 10:00 08/21/17 10:46 Miralax (For Daily Use) - PO 17 gm DAILY [facility] Administration Rivaroxaban 15 mg 08/16/17 18:00 08/20/17 17:11 Xarelto - PO 15 mg DAILY@1800 [facility] Administration Silver Sulfadiazine 1 applic 08/17/17 12:00 08/21/17 10:53 Silvadene - TP 1 applic BID [facility] Administration Tamsulosin HCl 0.4 mg 08/07/17 11:45 08/21/17 08:14 Flomax - PO 0.4 mg DAILY@0830 [facility] Administration ASSESSMENT/PLAN: 1. Acute kidney injury with fluid overload - Creatinine stable - Continue Lasix - Add Zaroxolyn if no improvement in fluid overload 2. Stage 3 CKD 3. Hyperkalemia - Improved 4. Skin rash - Resolved 5. Anemia - Hemoglobin stable 6. Chronic diastolic heart failure - Continue Lasix 7. Recent cellulitis of legs with MRSA - Resolved 8. Recent open fracture dislocation of left ankle - s/p external fixation 07/22 9. Permanent atrial fibrillation - Continue atenolol, Xarelto 10. HTN - Continue atenolol, Lasix 11. Hyperlipidemia - Continue Lipitor 12. History of gout 13. Type 2 DM - Continue Levemir, Novolog sliding scale 14. Hypothyroidism - Continue Synthroid 15. Morbid obesity with BMI 65.6 16. COPD, obstructive sleep apnea, obesity hypoventilation syndrome - Continue DuoNeb, BiPAP 17. Pulmonary HTN 18. Chronic venous stasis ulcers - Continue wound care Visit type - Emergency Visit Emergency Visit: Yes ED Registration Date: 08/06/17 Care time: The patient presented to the Emergency Department on the above date and was hospitalized for further evaluation of their emergent condition. - New Patient This patient is new to me today: No - Critical Care Critical Care patient: No - Discharge Referral Referred to [facility] Med P.C.: No
[2017-08-21] MEDS: RIVAROXABAN 15 MG TABLET PO SCH (17:04)
[2017-08-21] MEDS: INSULIN (LEVEMIR) 100 UNITS/ML UNITS SQ SCH (22:03)
[2017-08-21] MEDS: ATORVASTATIN CA 80 MG TABLET (FP) PO SCH (22:03)
--- NOTE | 2017-08-21 23:20 | PN ---
Progress Note (short form) - Note Progress Note: Problems 1. CKD 2. KRUNAL 3. volume overload 4. morbid obesity 5. CAD 6. cellulitis 7. s/p fall 8. a-fib 9. DM 10. hypothyroidism 11. HLD 12. CHF 13. s/p leg fracture 14. hyperkalemia 15. constipation Current Medications Acetaminophen (Tylenol -) 650 mg PO Q4H PRN PRN Reason: PAIN LEVEL 1 - 3 Al Hydroxide/Mg Hydroxide (Mylanta Oral Suspension -) 30 ml PO Q6H PRN PRN Reason: DYSPEPSIA Albuterol Sulfate (Ventolin 0.083% Nebulizer Soln -) 1 amp NEB Q4H PRN PRN Reason: SHORT OF BREATH/WHEEZING Last Admin: 08/21/17 00:18 Dose: 1 amp Albuterol/Ipratropium (Duoneb -) 1 amp NEB RTID [facility] Last Admin: 08/21/17 20:50 Dose: 1 amp Aspirin (Asa -) 81 mg PO DAILY [facility] Last Admin: 08/21/17 10:45 Dose: 81 mg Atenolol (Tenormin -) 100 mg PO BID [facility] Last Admin: 08/21/17 22:03 Dose: 100 mg Atorvastatin Calcium (Lipitor -) 80 mg PO HS [facility] Last Admin: 08/21/17 22:03 Dose: 80 mg Bisacodyl (Dulcolax -) 10 mg PO DAILY [facility] Last Admin: 08/21/17 10:45 Dose: 10 mg Bisacodyl (Dulcolax Suppository -) 10 mg RC PRN PRN PRN Reason: CONSTIPATION Collagenase (Santyl -) 1 applic TP DAILY [facility] Last Admin: 08/21/17 11:06 Dose: Not Given Furosemide (Lasix Injection -) 80 mg IVPUSH BID@0600,1400 [facility] Last Admin: 08/21/17 14:47 Dose: 80 mg Insulin Aspart (Novolog Vial Sliding Scale -) 1 vial SQ [facility]; Protocol Last Admin: 08/21/17 22:03 Dose: 2 units Insulin Detemir (Levemir Vial) [address] [facility] Last Admin: 08/21/17 22:03 Dose: 10 units Levothyroxine Sodium (Synthroid -) 100 mcg PO DAILY@0700 [facility] Last Admin: 08/21/17 06:32 Dose: 100 mcg Metronidazole (Metrogel 0.75% Gel -) 1 applic TP BID [facility] Last Admin: 08/21/17 22:04 Dose: 1 applic Mupirocin (Bactroban 2% Ointment -) 1 applic TP DAILY [facility] Last Admin: 08/21/17 10:54 Dose: 1 applic Nystatin (Nystop Powder -) 1 applic TP DAILY [facility] Last Admin: 08/21/17 10:55 Dose: 1 applic Oxycodone HCl (Roxicodone -) 5 mg PO Q4H PRN PRN Reason: PAIN LEVEL 4 - 6 Oxycodone HCl (Roxicodone -) 10 mg PO Q4H PRN PRN Reason: PAIN LEVEL 7 - 10 Last Admin: 08/21/17 14:46 Dose: 10 mg Polyethylene Glycol (Miralax (For Daily Use) -) 17 gm PO DAILY [facility] Last Admin: 08/21/17 10:46 Dose: 17 gm Rivaroxaban (Xarelto -) 15 mg PO DAILY@1800 [facility] Last Admin: 08/21/17 17:04 Dose: 15 mg Silver Sulfadiazine (Silvadene -) 1 applic TP BID [facility] Last Admin: 08/21/17 22:04 Dose: 1 applic Tamsulosin HCl (Flomax -) 0.4 mg PO DAILY@0830 [facility] Last Admin: 08/21/17 08:14 Dose: 0.4 mg Last Vital Signs Temp Pulse Resp BP Pulse Ox 98.1 F 80 22 129/77 99 08/21/17 22:00 08/21/17 22:00 08/21/17 22:00 08/21/17 22:00 08/21/17 22:00 CBC, BMP 08/21/17 07:00 08/21/17 07:00 Plan - cont IV lasix - monitor renal function - will add metolazone if volume status does not improve - avoid nephrotoxic agents - will hold off jasmyne as he has had hyperkalemia on multiple occasions - renal diet
[2017-08-22] MEDS: ALBUTEROL SO4 0.083% IH SOL 2.5 MG/3 ML VIAL.NEB. NEB PRN (02:30)
[2017-08-22] MEDS: oxyCODONE HCL 5 MG TABLET PO PRN ×3 (02:50→20:36)
[2017-08-22] MEDS: LEVOTHYROXINE NA 100 MCG TABLET (FP) PO SCH (06:19)
[2017-08-22] MEDS: FUROSEMIDE 40 MG/4 ML INJECTABLE VIAL IVPUSH SCH ×2 (06:19→14:37)
[2017-08-22] MEDS: INSULIN SLIDING SCALE (NOVOLOG) 1 VIAL SQ SCH ×4 (06:32→21:23)
[2017-08-22] MEDS: ALBUTEROL SO4 2.5/IPRATROPIUM 0.5 INH SOL 3 ML VIAL.NEB. NEB SCH ×3 (07:45→19:57)
[2017-08-22] MEDS: TAMSULOSIN HCL 0.4 MG CAP.ER.24H (FP) PO SCH (08:16)
[2017-08-22 09:34] LABS: HEMATOCRIT 28.6 % (35.4-49); MCH 29.6 pg (25.7-33.7); MCHC 31.6 g/dl (32.0-35.9); MEAN CELL VOLUME 93.7 fl (80-96); MEAN PLT VOLUME 7.9 fl (7.5-11.1); PLATELET COUNT 136 K/MM3 (134-434); RBC 3.05 M/mm3 (4.00-5.60); RDW 17.6 % (11.9-15.9); WHITE BLOOD COUNT 5.5 K/mm3 (4.0-10.0)
--- NOTE | 2017-08-22 09:58 | PN ---
Progress Note, Physician - Current Medication List Current Medications: Active Medications Acetaminophen (Tylenol -) 650 mg PO Q4H PRN PRN Reason: PAIN LEVEL 1 - 3 Al Hydroxide/Mg Hydroxide (Mylanta Oral Suspension -) 30 ml PO Q6H PRN PRN Reason: DYSPEPSIA Albuterol Sulfate (Ventolin 0.083% Nebulizer Soln -) 1 amp NEB Q4H PRN PRN Reason: SHORT OF BREATH/WHEEZING Last Admin: 08/22/17 02:30 Dose: 1 amp Albuterol/Ipratropium (Duoneb -) 1 amp NEB RTID [facility] Last Admin: 08/22/17 07:45 Dose: 1 amp Aspirin (Asa -) 81 mg PO DAILY [facility] Last Admin: 08/21/17 10:45 Dose: 81 mg Atenolol (Tenormin -) 100 mg PO BID [facility] Last Admin: 08/21/17 22:03 Dose: 100 mg Atorvastatin Calcium (Lipitor -) 80 mg PO HS [facility] Last Admin: 08/21/17 22:03 Dose: 80 mg Bisacodyl (Dulcolax -) 10 mg PO DAILY [facility] Last Admin: 08/21/17 10:45 Dose: 10 mg Bisacodyl (Dulcolax Suppository -) 10 mg RC PRN PRN PRN Reason: CONSTIPATION Collagenase (Santyl -) 1 applic TP DAILY [facility] Last Admin: 08/21/17 11:06 Dose: Not Given Furosemide (Lasix Injection -) 80 mg IVPUSH BID@0600,1400 [facility] Last Admin: 08/22/17 06:19 Dose: 80 mg Insulin Aspart (Novolog Vial Sliding Scale -) 1 vial SQ [facility]; Protocol Last Admin: 08/22/17 06:32 Dose: Not Given Insulin Detemir (Levemir Vial) 10 units SQ [facility] Last Admin: 08/21/17 22:03 Dose: 10 units Levothyroxine Sodium (Synthroid -) 100 mcg PO DAILY@0700 [facility] Last Admin: 08/22/17 06:19 Dose: 100 mcg Metronidazole (Metrogel 0.75% Gel -) 1 applic TP BID [facility] Last Admin: 08/21/17 22:04 Dose: 1 applic Mupirocin (Bactroban 2% Ointment -) 1 applic TP DAILY [facility] Last Admin: 08/21/17 10:54 Dose: 1 applic Nystatin (Nystop Powder -) 1 applic TP DAILY [facility] Last Admin: 08/21/17 10:55 Dose: 1 applic Oxycodone HCl (Roxicodone -) 5 mg PO Q4H PRN PRN Reason: PAIN LEVEL 4 - 6 Oxycodone HCl (Roxicodone -) 10 mg PO Q4H PRN PRN Reason: PAIN LEVEL 7 - 10 Last Admin: 08/22/17 08:15 Dose: 10 mg Polyethylene Glycol (Miralax (For Daily Use) -) 17 gm PO DAILY [facility] Last Admin: 08/21/17 10:46 Dose: 17 gm Rivaroxaban (Xarelto -) 15 mg PO DAILY@1800 [facility] Last Admin: 08/21/17 17:04 Dose: 15 mg Silver Sulfadiazine (Silvadene -) 1 applic TP BID [facility] Last Admin: 08/21/17 22:04 Dose: 1 applic Tamsulosin HCl (Flomax -) 0.4 mg PO DAILY@0830 [facility] Last Admin: 08/22/17 08:16 Dose: 0.4 mg - Objective Vital Signs: Vital Signs Temperature 99.4 F 08/22/17 08:09 Pulse Rate 81 08/22/17 08:09 Respiratory Rate 20 08/22/17 08:09 Blood Pressure 113/74 08/22/17 08:09 O2 Sat by Pulse Oximetry (%) 98 08/22/17 07:05 Eyes: Yes: WNL, Conjunctiva Clear, EOM Intact HENT: Yes: WNL, Atraumatic, Normocephalic Neck: Yes: WNL, Supple, Trachea Midline Cardiovascular: Yes: WNL, Regular Rate and Rhythm Respiratory: Yes: WNL, Regular, CTA Bilaterally Gastrointestinal: Yes: WNL, Normal Bowel Sounds Genitourinary: Yes: WNL Musculoskeletal: Yes: WNL Extremities: Yes: WNL Edema: Yes Integumentary: Yes: WNL Neurological: Yes: WNL, Alert, Oriented ...Motor Strength: WNL Psychiatric: Yes: WNL Labs: CBC, BMP 08/22/17 08:50 INR, PTT INR 1.96 (0.82-1.09) H 08/08/17 05:34 Assessment/Plan IMP: Acute on chronic RF, hyperK+, improved Permanent AF CAD s/p PCI Chronic diastolic CHF Plan: - agree that pt is again developing signs of fluid overload - continue IV Lasix - monitor renal function - avoid nephrotoxic agents - holding UVALDO-I as he has had hyperkalemia on multiple occasions - renal diet -Xarelto, adjusted for renal fx. coverage for dr. Riley
[2017-08-22 10:12] LABS: CHLORIDE 100 mmol/L (98-107); POTASSIUM 4.8 mmol/L (3.5-5.1); SODIUM 137 mmol/L (136-145)
[2017-08-22] MEDS: BISACODYL 5 MG TABLET.DR (FP) PO SCH (10:16)
[2017-08-22] MEDS: ASPIRIN 81 MG CHEWABLE TABLETS PO SCH (10:17)
[2017-08-22] MEDS: ATENOLOL 50 MG TABLET (FP) PO SCH ×2 (10:17→21:23)
[2017-08-22] MEDS: SILVER SULFADIAZINE 1% TOP CREAM 50 GM JAR TP SCH ×2 (10:19→21:28)
[2017-08-22] MEDS: NYSTATIN POWDER 100,000 UNITS/GM - 15 GM TOPICAL POWDER TP SCH (10:19)
[2017-08-22] MEDS: COLLAGENASE CLOSTRIDIUM HIST. 30 GRAMS TUBE TP SCH (10:19)
[2017-08-22] MEDS: MUPIROCIN 2% TOPICAL OINTMENT 22 GM TUBE TP SCH (10:20)
[2017-08-22] MEDS: metroNIDAZOLE 0.75% TOPICAL GEL 45 GM TUBE TP SCH ×2 (10:20→21:28)
[2017-08-22] MEDS: POLYETHYLENE GLYCOL 3350 119 GM BTL PO SCH (10:29)
[2017-08-22 10:43] LABS: ANION GAP 7 (8-16); BLOOD UREA NITROGEN 74 mg/dL (7-18); CALCIUM 8.1 mg/dL (8.5-10.1); CO2 30 mmol/L (21-32); GLUCOSE,RANDOM 179 mg/dL (74-106)
--- NOTE | 2017-08-22 11:40 | PN ---
Progress Note, Physician History of Present Illness: stable - Current Medication List Current Medications: Active Medications Acetaminophen (Tylenol -) 650 mg PO Q4H PRN PRN Reason: PAIN LEVEL 1 - 3 Al Hydroxide/Mg Hydroxide (Mylanta Oral Suspension -) 30 ml PO Q6H PRN PRN Reason: DYSPEPSIA Albuterol Sulfate (Ventolin 0.083% Nebulizer Soln -) 1 amp NEB Q4H PRN PRN Reason: SHORT OF BREATH/WHEEZING Last Admin: 08/22/17 02:30 Dose: 1 amp Albuterol/Ipratropium (Duoneb -) 1 amp NEB RTID [facility] Last Admin: 08/22/17 07:45 Dose: 1 amp Aspirin (Asa -) 81 mg PO DAILY [facility] Last Admin: 08/22/17 10:17 Dose: 81 mg Atenolol (Tenormin -) 100 mg PO BID [facility] Last Admin: 08/22/17 10:17 Dose: Not Given Atorvastatin Calcium (Lipitor -) 80 mg PO [facility] Last Admin: 08/21/17 22:03 Dose: 80 mg Bisacodyl (Dulcolax -) 10 mg PO DAILY [facility] Last Admin: 08/22/17 10:16 Dose: 10 mg Bisacodyl (Dulcolax Suppository -) 10 mg RC PRN PRN PRN Reason: CONSTIPATION Collagenase (Santyl -) 1 applic TP DAILY [facility] Last Admin: 08/22/17 10:19 Dose: 1 applic Furosemide (Lasix Injection -) 80 mg IVPUSH BID@0600,1400 [facility] Last Admin: 08/22/17 06:19 Dose: 80 mg Insulin Aspart (Novolog Vial Sliding Scale -) 1 vial SQ [facility]; Protocol Last Admin: 08/22/17 06:32 Dose: Not Given Insulin Detemir (Levemir Vial) 10 units SQ [facility] Last Admin: 08/21/17 22:03 Dose: 10 units Levothyroxine Sodium (Synthroid -) 100 mcg PO DAILY@0700 [facility] Last Admin: 08/22/17 06:19 Dose: 100 mcg Metronidazole (Metrogel 0.75% Gel -) 1 applic TP BID [facility] Last Admin: 08/22/17 10:20 Dose: 1 applic Mupirocin (Bactroban 2% Ointment -) 1 applic TP DAILY [facility] Last Admin: 08/22/17 10:20 Dose: 1 applic Nystatin (Nystop Powder -) 1 applic TP DAILY [facility] Last Admin: 08/22/17 10:19 Dose: 1 applic Oxycodone HCl (Roxicodone -) 5 mg PO Q4H PRN PRN Reason: PAIN LEVEL 4 - 6 Oxycodone HCl (Roxicodone -) 10 mg PO Q4H PRN PRN Reason: PAIN LEVEL 7 - 10 Last Admin: 08/22/17 08:15 Dose: 10 mg Polyethylene Glycol (Miralax (For Daily Use) -) 17 gm PO DAILY [facility] Last Admin: 08/22/17 10:29 Dose: 17 gm Rivaroxaban (Xarelto -) 15 mg PO DAILY@1800 [facility] Last Admin: 08/21/17 17:04 Dose: 15 mg Silver Sulfadiazine (Silvadene -) 1 applic TP BID [facility] Last Admin: 08/22/17 10:19 Dose: 1 applic Tamsulosin HCl (Flomax -) 0.4 mg PO DAILY@0830 [facility] Last Admin: 08/22/17 08:16 Dose: 0.4 mg - Objective Vital Signs: Vital Signs Temperature 99.4 F 08/22/17 08:09 Pulse Rate 81 08/22/17 08:09 Respiratory Rate 20 08/22/17 08:09 Blood Pressure 113/74 08/22/17 08:09 O2 Sat by Pulse Oximetry (%) 98 08/22/17 07:05 Constitutional: Yes: No Distress, Calm, Obese Neck: Yes: Supple Cardiovascular: Yes: S1, S2 Respiratory: Yes: On BiPap, On Nasal O2 Gastrointestinal: Yes: Normal Bowel Sounds, Soft Musculoskeletal: Yes: WNL Extremities: Yes: Other Wound/Incision: Yes: Clean/Dry Neurological: Yes: Alert, Oriented Psychiatric: Yes: Alert, Oriented Labs: CBC, BMP 08/22/17 08:50 08/22/17 08:50 INR, PTT INR 1.96 (0.82-1.09) H 08/08/17 05:34 Assessment/Plan Problem List - Problems (1) Acute renal insufficiency Code(s): N28.9 - DISORDER OF KIDNEY AND URETER, UNSPECIFIED (2) Atrial fibrillation Code(s): I48.91 - UNSPECIFIED ATRIAL FIBRILLATION Qualifiers: Atrial fibrillation type: chronic Qualified Code(s): I48.2 - Chronic atrial fibrillation (3) BPH (benign prostatic hyperplasia) Code(s): N40.0 - BENIGN PROSTATIC HYPERPLASIA WITHOUT LOWER URINRY TRACT SYMP (4) CHF (congestive heart failure) Code(s): I50.9 - HEART FAILURE, UNSPECIFIED Qualifiers: Heart failure type: unspecified Heart failure chronicity: acute on chronic Qualified Code(s): I50.9 - Heart failure, unspecified (5) Acute renal failure (ARF) Code(s): N17.9 - ACUTE KIDNEY FAILURE, UNSPECIFIED (6) CAD (coronary artery disease) Code(s): I25.10 - ATHSCL HEART DISEASE OF [place] CORONARY ARTERY W/O ANG PCTRS (7) COPD (chronic obstructive pulmonary disease) Code(s): J44.9 - CHRONIC OBSTRUCTIVE PULMONARY DISEASE, UNSPECIFIED (8) Cellulitis of right leg Code(s): L03.115 - CELLULITIS OF RIGHT LOWER LIMB (9) Diabetes Code(s): E11.9 - TYPE 2 DIABETES MELLITUS WITHOUT COMPLICATIONS (10) Dyslipidemia Code(s): E78.5 - HYPERLIPIDEMIA, UNSPECIFIED (11) Obesities, morbid Code(s): E66.01 - MORBID (SEVERE) OBESITY DUE TO EXCESS CALORIES (12) Open left ankle fracture Code(s): S82.892B - OTH FRACTURE OF LEFT LOWER LEG, INIT FOR OPN FX TYPE I/2 Qualifiers: Encounter type: initial encounter (13) Sleep apnea Code(s): G47.30 - SLEEP APNEA, UNSPECIFIED (14) Venous (peripheral) insufficiency Code(s): I87.2 - VENOUS INSUFFICIENCY (CHRONIC) (PERIPHERAL) (15) Venous ulcer Code(s): I87.8 - OTHER SPECIFIED DISORDERS OF VEINS Assessment/Plan 61 y.o. male with PMH of DM, morbid obesity, CAD, CHF, AFIB, CKD, BPH, LLE compound fracture s/p external fixation with hardware in place, RLE cellulitis, LE infected ulcers receiving IV antibiotics in [place] presenting with urinary retention, KRUNAL and generalized rash and elevated Vancomycin levels Hx of RLE cellulitis/LLE infected ulcers - appears to have improved Rash resolving KRUNAL on CKD Urinary retention plan continue current mgmt nutrition rest continue d/w the
--- NOTE | 2017-08-22 13:16 | PN ---
Physical Exam: SUBJECTIVE: Patient seen and examined. He has no complaints. OBJECTIVE: Vital Signs Period Temp Pulse Resp BP Sys/Mehta Pulse Ox Last 24 Hr 98.1 F-99.5 F 78-82 20-24 113-138/74-78 96-99 GENERAL: The patient is awake, alert, using BiPAP. LUNGS: Breath sounds equal, clear to auscultation bilaterally, no wheezes, no crackles, no accessory muscle use. HEART: Irregular. ABDOMEN: Obese, soft, nontender, nondistended, normoactive bowel sounds, no guarding, no rebound, no hepatosplenomegaly, no masses. EXTREMITIES: 2+ pulses, warm, well-perfused, 2+ edema, external fixator on LLE. Laboratory Results - last 24 hr 08/21/17 08/21/17 08/22/17 16:30 22:02 06:31 WBC RBC Hgb Hct MCV MCH MCHC RDW Plt Count MPV Sodium Potassium Chloride Carbon Dioxide Anion Gap BUN Creatinine POC Glucometer 197 214 166 Random Glucose Calcium 08/22/17 08/22/17 08:50 08:50 WBC 5.5 RBC 3.05 L Hgb 9.0 L Hct 28.6 L MCV 93.7 MCH 29.6 MCHC 31.6 L RDW 17.6 H Plt Count 136 MPV 7.9 Sodium 137 Potassium 4.8 Chloride 100 Carbon Dioxide 30 Anion Gap 7 L BUN 74 H Creatinine 2.0 H POC Glucometer Random Glucose 179 H D Calcium 8.1 L Active Medications Generic Name Dose Route Start Last Admin Trade Name Freq PRN Reason Stop Dose Admin Acetaminophen 650 mg 08/21/17 14:31 Tylenol - PO Q4H PRN PAIN LEVEL 1 - 3 Al Hydroxide/Mg Hydroxide 30 ml 08/17/17 12:00 Mylanta Oral Suspension - PO Q6H PRN DYSPEPSIA Albuterol Sulfate 1 amp 08/17/17 10:47 08/22/17 02:30 Ventolin 0.083% Nebulizer Soln - NEB 1 amp Q4H PRN Administration SHORT OF BREATH/WHEEZING Albuterol/Ipratropium 1 amp 08/17/17 14:00 08/22/17 07:45 Duoneb - NEB 1 amp RTID [facility] Administration Aspirin 81 mg 08/11/17 10:00 08/22/17 10:17 Asa - PO 81 mg DAILY [facility] Administration Atenolol 100 mg 08/07/17 13:35 08/22/17 10:17 Tenormin - PO Not Given BID [facility] Atorvastatin Calcium 80 mg 08/07/17 22:00 08/21/17 22:03 Lipitor - PO 80 mg HS [facility] Administration Bisacodyl 10 mg 08/07/17 10:00 08/22/17 10:16 Dulcolax - PO 10 mg DAILY [facility] Administration Bisacodyl 10 mg 08/15/17 17:44 Dulcolax Suppository - RC PRN PRN CONSTIPATION Collagenase 1 applic 08/07/17 10:00 08/22/17 10:19 Santyl - TP 1 applic DAILY [facility] Administration Furosemide 80 mg 08/19/17 15:30 08/22/17 06:19 Lasix Injection - IVPUSH 80 mg BID@0600,1400 [facility] Administration Insulin Aspart 1 vial 08/07/17 07:00 08/22/17 06:32 Novolog Vial Sliding Scale - SQ Not Given ACHS [facility] Protocol Insulin Detemir 10 units 08/19/17 22:00 08/21/17 22:03 Levemir Vial SQ 10 units HS [facility] Administration Levothyroxine Sodium 100 mcg 08/07/17 07:00 08/22/17 06:19 Synthroid - PO 100 mcg DAILY@0700 [facility] Administration Metronidazole 1 applic 08/07/17 10:00 08/22/17 10:20 Metrogel 0.75% Gel - TP 1 applic BID [facility] Administration Mupirocin 1 applic 08/07/17 10:00 08/22/17 10:20 Bactroban 2% Ointment - TP 1 applic DAILY [facility] Administration Nystatin 1 applic 08/11/17 10:00 08/22/17 10:19 Nystop Powder - TP 1 applic DAILY [facility] Administration Oxycodone HCl 5 mg 08/21/17 14:32 Roxicodone - PO Q4H PRN PAIN LEVEL 4 - 6 Oxycodone HCl 10 mg 08/21/17 14:32 08/22/17 08:15 Roxicodone - PO 10 mg Q4H PRN Administration PAIN LEVEL 7 - 10 Polyethylene Glycol 17 gm 08/21/17 10:00 08/22/17 10:29 Miralax (For Daily Use) - PO 17 gm DAILY [facility] Administration Rivaroxaban 15 mg 08/16/17 18:00 08/21/17 17:04 Xarelto - PO 15 mg DAILY@1800 [facility] Administration Silver Sulfadiazine 1 applic 08/17/17 12:00 08/22/17 10:19 Silvadene - TP 1 applic BID [facility] Administration Tamsulosin HCl 0.4 mg 08/07/17 11:45 08/22/17 08:16 Flomax - PO 0.4 mg DAILY@0830 [facility] Administration ASSESSMENT/PLAN: 1. Acute kidney injury with fluid overload - Creatinine stable - Continue Lasix - Add Zaroxolyn if no improvement in fluid overload 2. Stage 3 CKD 3. Hyperkalemia - Improved 4. Skin rash - Resolved 5. Anemia - Hemoglobin stable 6. Chronic diastolic heart failure - Continue Lasix 7. Recent cellulitis of legs with MRSA - Resolved 8. Recent open fracture dislocation of left ankle - s/p external fixation 07/22 9. Permanent atrial fibrillation - Continue atenolol, Xarelto 10. HTN - Continue atenolol, Lasix 11. Hyperlipidemia - Continue Lipitor 12. History of gout 13. Type 2 DM - Continue Levemir, Novolog sliding scale 14. Hypothyroidism - Continue Synthroid 15. Morbid obesity with BMI 65.6 16. COPD, obstructive sleep apnea, obesity hypoventilation syndrome - Continue DuoNeb, BiPAP 17. Pulmonary HTN 18. Chronic venous stasis ulcers - Continue wound care 19. History of DVT/PE Visit type - Emergency Visit Emergency Visit: Yes ED Registration Date: 08/06/17 Care time: The patient presented to the Emergency Department on the above date and was hospitalized for further evaluation of their emergent condition. - New Patient This patient is new to me today: No - Critical Care Critical Care patient: No - Discharge Referral Referred to [facility] Med P.C.: No
--- NOTE | 2017-08-22 13:17 | PN ---
Progress Note (short form) - Note Progress Note: PULMONARY Remains on BiPAP. Last Vital Signs Temp Pulse Resp BP Pulse Ox 99.4 F 81 20 113/74 98 08/22/17 08:09 08/22/17 08:09 08/22/17 08:09 08/22/17 08:09 08/22/17 07:05 Intake & Output 08/19/17 08/20/17 08/21/17 08/22/17 23:59 23:59 23:59 23:59 Intake Total 584 475 3899 300 Output Total 1425 1650 1550 Balance -985 -990 100 300 Weight 215.116 kg 213.324 kg Gen: on BiPAP Heart: RRR Lung: distant breath sounds Abd: soft, obese, edematous Ext: + edema CBC, BMP 08/22/17 08:50 08/22/17 08:50 Active Medications Acetaminophen (Tylenol -) 650 mg PO Q4H PRN PRN Reason: PAIN LEVEL 1 - 3 Al Hydroxide/Mg Hydroxide (Mylanta Oral Suspension -) 30 ml PO Q6H PRN PRN Reason: DYSPEPSIA Albuterol Sulfate (Ventolin 0.083% Nebulizer Soln -) 1 amp NEB Q4H PRN PRN Reason: SHORT OF BREATH/WHEEZING Last Admin: 08/22/17 02:30 Dose: 1 amp Albuterol/Ipratropium (Duoneb -) 1 amp NEB RTID [facility] Last Admin: 08/22/17 07:45 Dose: 1 amp Aspirin (Asa -) 81 mg PO DAILY [facility] Last Admin: 08/22/17 10:17 Dose: 81 mg Atenolol (Tenormin -) 100 mg PO BID [facility] Last Admin: 08/22/17 10:17 Dose: Not Given Atorvastatin Calcium (Lipitor -) 80 mg PO HS [facility] Last Admin: 08/21/17 22:03 Dose: 80 mg Bisacodyl (Dulcolax -) 10 mg PO DAILY [facility] Last Admin: 08/22/17 10:16 Dose: 10 mg Bisacodyl (Dulcolax Suppository -) 10 mg RC PRN PRN PRN Reason: CONSTIPATION Collagenase (Santyl -) 1 applic TP DAILY [facility] Last Admin: 08/22/17 10:19 Dose: 1 applic Furosemide (Lasix Injection -) 80 mg IVPUSH BID@0600,1400 [facility] Last Admin: 08/22/17 06:19 Dose: 80 mg Insulin Aspart (Novolog Vial Sliding Scale -) 1 vial SQ [facility]; Protocol Last Admin: 08/22/17 06:32 Dose: Not Given Insulin Detemir (Levemir Vial) 10 units SQ [facility] Last Admin: 08/21/17 22:03 Dose: 10 units Levothyroxine Sodium (Synthroid -) 100 mcg PO DAILY@0700 [facility] Last Admin: 08/22/17 06:19 Dose: 100 mcg Metronidazole (Metrogel 0.75% Gel -) 1 applic TP BID [facility] Last Admin: 08/22/17 10:20 Dose: 1 applic Mupirocin (Bactroban 2% Ointment -) 1 applic TP DAILY [facility] Last Admin: 08/22/17 10:20 Dose: 1 applic Nystatin (Nystop Powder -) 1 applic TP DAILY [facility] Last Admin: 08/22/17 10:19 Dose: 1 applic Oxycodone HCl (Roxicodone -) 5 mg PO Q4H PRN PRN Reason: PAIN LEVEL 4 - 6 Oxycodone HCl (Roxicodone -) 10 mg PO Q4H PRN PRN Reason: PAIN LEVEL 7 - 10 Last Admin: 08/22/17 08:15 Dose: 10 mg Polyethylene Glycol (Miralax (For Daily Use) -) 17 gm PO DAILY [facility] Last Admin: 08/22/17 10:29 Dose: 17 gm Rivaroxaban (Xarelto -) 15 mg PO DAILY@1800 [facility] Last Admin: 08/21/17 17:04 Dose: 15 mg Silver Sulfadiazine (Silvadene -) 1 applic TP BID [facility] Last Admin: 08/22/17 10:19 Dose: 1 applic Tamsulosin HCl (Flomax -) 0.4 mg PO DAILY@0830 [facility] Last Admin: 08/22/17 08:16 Dose: 0.4 mg A/P Acute on Chronic Diastolic Heart Failure Acute on Chronic Renal Failure Volume Overload Pulmonary HTN Atrial Fibrillation CAD COPD Morbid Obesity ASHLEY/OHS - continue lasix - monitor urine output, creatinine - daily weights - inhaled bronchodilators - no indication for systemic steroids at this time - O2 to keep SpO2 >90% - BiPAP to assist in work of breathing - rate controlled with atenolol - continue anticoagulation Problem List - Problems (1) Acute on chronic diastolic (congestive) heart failure Code(s): I50.33 - ACUTE ON CHRONIC DIASTOLIC (CONGESTIVE) HEART FAILURE (2) Acute on chronic renal failure Code(s): N17.9 - ACUTE KIDNEY FAILURE, UNSPECIFIED; N18.9 - CHRONIC KIDNEY DISEASE, UNSPECIFIED (3) Atrial fibrillation Code(s): I48.91 - UNSPECIFIED ATRIAL FIBRILLATION Qualifiers: Qualified Code(s): I48.2 - Chronic atrial fibrillation (4) CAD (coronary artery disease) Code(s): I25.10 - ATHSCL HEART DISEASE OF [place] CORONARY ARTERY W/O ANG PCTRS (5) COPD (chronic obstructive pulmonary disease) Code(s): J44.9 - CHRONIC OBSTRUCTIVE PULMONARY DISEASE, UNSPECIFIED (6) Diabetes Code(s): E11.9 - TYPE 2 DIABETES MELLITUS WITHOUT COMPLICATIONS (7) Obesities, morbid Code(s): E66.01 - MORBID (SEVERE) OBESITY DUE TO EXCESS CALORIES (8) Pulmonary HTN Code(s): I27.20 - PULMONARY HYPERTENSION, UNSPECIFIED (9) Sleep apnea Code(s): G47.30 - SLEEP APNEA, UNSPECIFIED (10) Volume overload Code(s): E87.70 - FLUID OVERLOAD, UNSPECIFIED
[2017-08-22] MEDS ORDERED: ACETAMINOPHEN 325 MG TABLET (FP) ONE (14:02)
[2017-08-22] MEDS: RIVAROXABAN 15 MG TABLET PO SCH (17:52)
[2017-08-22] MEDS: INSULIN (LEVEMIR) 100 UNITS/ML UNITS SQ SCH (21:22)
[2017-08-22] MEDS: ATORVASTATIN CA 80 MG TABLET (FP) PO SCH (21:22)
--- NOTE | 2017-08-22 21:52 | PN ---
Progress Note (short form) - Note Progress Note: Problems 1. CKD 2. KRUNAL 3. volume overload 4. morbid obesity 5. CAD 6. cellulitis 7. s/p fall 8. a-fib 9. DM 10. hypothyroidism 11. HLD 12. CHF 13. s/p leg fracture 14. hyperkalemia 15. constipation Active Medications Acetaminophen (Tylenol -) 650 mg PO Q4H PRN PRN Reason: PAIN LEVEL 1 - 3 Al Hydroxide/Mg Hydroxide (Mylanta Oral Suspension -) 30 ml PO Q6H PRN PRN Reason: DYSPEPSIA Albuterol Sulfate (Ventolin 0.083% Nebulizer Soln -) 1 amp NEB Q4H PRN PRN Reason: SHORT OF BREATH/WHEEZING Last Admin: 08/22/17 02:30 Dose: 1 amp Albuterol/Ipratropium (Duoneb -) 1 amp NEB RTID [facility] Last Admin: 08/22/17 14:40 Dose: 1 amp Aspirin (Asa -) 81 mg PO DAILY [facility] Last Admin: 08/22/17 10:17 Dose: 81 mg Atenolol (Tenormin -) 100 mg PO BID [facility] Last Admin: 08/22/17 21:23 Dose: 100 mg Atorvastatin Calcium (Lipitor -) 80 mg PO HS [facility] Last Admin: 08/22/17 21:22 Dose: 80 mg Bisacodyl (Dulcolax -) 10 mg PO DAILY [facility] Last Admin: 08/22/17 10:16 Dose: 10 mg Bisacodyl (Dulcolax Suppository -) 10 mg RC PRN PRN PRN Reason: CONSTIPATION Collagenase (Santyl -) 1 applic TP DAILY [facility] Last Admin: 08/22/17 10:19 Dose: 1 applic Furosemide (Lasix Injection -) 80 mg IVPUSH BID@0600,1400 [facility] Last Admin: 08/22/17 14:37 Dose: 80 mg Insulin Aspart (Novolog Vial Sliding Scale -) 1 vial SQ [facility]; Protocol Last Admin: 08/22/17 21:23 Dose: Not Given Insulin Detemir (Levemir Vial) 10 units SQ [facility] Last Admin: 08/22/17 21:22 Dose: 10 units Levothyroxine Sodium (Synthroid -) 100 mcg PO DAILY@0700 [facility] Last Admin: 08/22/17 06:19 Dose: 100 mcg Metronidazole (Metrogel 0.75% Gel -) 1 applic TP BID [facility] Last Admin: 08/22/17 21:28 Dose: 1 applic Mupirocin (Bactroban 2% Ointment -) 1 applic TP DAILY [facility] Last Admin: 08/22/17 10:20 Dose: 1 applic Nystatin (Nystop Powder -) 1 applic TP DAILY [facility] Last Admin: 08/22/17 10:19 Dose: 1 applic Oxycodone HCl (Roxicodone -) 5 mg PO Q4H PRN PRN Reason: PAIN LEVEL 4 - 6 Oxycodone HCl (Roxicodone -) 10 mg PO Q4H PRN PRN Reason: PAIN LEVEL 7 - 10 Last Admin: 08/22/17 20:36 Dose: 10 mg Polyethylene Glycol (Miralax (For Daily Use) -) 17 gm PO DAILY [facility] Last Admin: 08/22/17 10:29 Dose: 17 gm Rivaroxaban (Xarelto -) 15 mg PO DAILY@1800 [facility] Last Admin: 08/22/17 17:52 Dose: 15 mg Silver Sulfadiazine (Silvadene -) 1 applic TP BID [facility] Last Admin: 08/22/17 21:28 Dose: 1 applic Tamsulosin HCl (Flomax -) 0.4 mg PO DAILY@0830 [facility] Last Admin: 08/22/17 08:16 Dose: 0.4 mg Last Vital Signs Temp Pulse Resp BP Pulse Ox 99.7 F H 76 18 101/67 94 L 08/22/17 14:29 08/22/17 14:29 08/22/17 14:29 08/22/17 14:29 08/22/17 09:00 CBC, BMP 08/22/17 08:50 08/22/17 08:50 Plan - cont IV lasix - monitor renal function - will add metolazone if volume status does not improve - avoid nephrotoxic agents - will hold off jasmyne as he has had hyperkalemia on multiple occasions - renal diet
[2017-08-23] MEDS: oxyCODONE HCL 5 MG TABLET PO PRN ×3 (03:36→19:29)
[2017-08-23] MEDS: FUROSEMIDE 40 MG/4 ML INJECTABLE VIAL IVPUSH SCH ×2 (05:29→14:32)
[2017-08-23] MEDS: LEVOTHYROXINE NA 100 MCG TABLET (FP) PO SCH (06:06)
[2017-08-23] MEDS: INSULIN SLIDING SCALE (NOVOLOG) 1 VIAL SQ SCH ×4 (06:06→21:48)
[2017-08-23] MEDS: ALBUTEROL SO4 2.5/IPRATROPIUM 0.5 INH SOL 3 ML VIAL.NEB. NEB SCH ×3 (07:20→20:05)
[2017-08-23 07:29] LABS: HEMATOCRIT 28.9 % (35.4-49); HEMOGLOBIN 9.1 GM/dL (11.7-16.9); MCH 29.8 pg (25.7-33.7); MCHC 31.7 g/dl (32.0-35.9); MEAN CELL VOLUME 93.8 fl (80-96); MEAN PLT VOLUME 8.1 fl (7.5-11.1); PLATELET COUNT 126 K/MM3 (134-434); RBC 3.07 M/mm3 (4.00-5.60); RDW 17.1 % (11.9-15.9); WHITE BLOOD COUNT 5.7 K/mm3 (4.0-10.0)
[2017-08-23 08:08] LABS: ANION GAP 5 (8-16); BLOOD UREA NITROGEN 79 mg/dL (7-18); CALCIUM 7.9 mg/dL (8.5-10.1); CHLORIDE 101 mmol/L (98-107); CO2 31 mmol/L (21-32); CREATININE 2.2 mg/dL (0.7-1.3); GLUCOSE,RANDOM 192 mg/dL (74-106); POTASSIUM 5.1 mmol/L (3.5-5.1); SODIUM 137 mmol/L (136-145)
--- NOTE | 2017-08-23 09:06 | PN ---
Progress Note, Physician - Current Medication List Current Medications: Active Medications Acetaminophen (Tylenol -) 650 mg PO Q4H PRN PRN Reason: PAIN LEVEL 1 - 3 Al Hydroxide/Mg Hydroxide (Mylanta Oral Suspension -) 30 ml PO Q6H PRN PRN Reason: DYSPEPSIA Albuterol Sulfate (Ventolin 0.083% Nebulizer Soln -) 1 amp NEB Q4H PRN PRN Reason: SHORT OF BREATH/WHEEZING Last Admin: 08/22/17 02:30 Dose: 1 amp Albuterol/Ipratropium (Duoneb -) 1 amp NEB RTID [facility] Last Admin: 08/23/17 07:20 Dose: 1 amp Aspirin (Asa -) 81 mg PO DAILY [facility] Last Admin: 08/22/17 10:17 Dose: 81 mg Atenolol (Tenormin -) 100 mg PO BID [facility] Last Admin: 08/22/17 21:23 Dose: 100 mg Atorvastatin Calcium (Lipitor -) 80 mg PO HS [facility] Last Admin: 08/22/17 21:22 Dose: 80 mg Bisacodyl (Dulcolax -) 10 mg PO DAILY [facility] Last Admin: 08/22/17 10:16 Dose: 10 mg Bisacodyl (Dulcolax Suppository -) 10 mg RC PRN PRN PRN Reason: CONSTIPATION Collagenase (Santyl -) 1 applic TP DAILY [facility] Last Admin: 08/22/17 10:19 Dose: 1 applic Furosemide (Lasix Injection -) 80 mg IVPUSH BID@0600,1400 [facility] Last Admin: 08/23/17 05:29 Dose: 80 mg Insulin Aspart (Novolog Vial Sliding Scale -) 1 vial SQ [facility]; Protocol Last Admin: 08/23/17 06:06 Dose: Not Given Insulin Detemir (Levemir Vial) 10 units SQ [facility] Last Admin: 08/22/17 21:22 Dose: 10 units Levothyroxine Sodium (Synthroid -) 100 mcg PO DAILY@0700 [facility] Last Admin: 08/23/17 06:06 Dose: 100 mcg Metronidazole (Metrogel 0.75% Gel -) 1 applic TP BID [facility] Last Admin: 08/22/17 21:28 Dose: 1 applic Mupirocin (Bactroban 2% Ointment -) 1 applic TP DAILY [facility] Last Admin: 08/22/17 10:20 Dose: 1 applic Nystatin (Nystop Powder -) 1 applic TP DAILY [facility] Last Admin: 08/22/17 10:19 Dose: 1 applic Oxycodone HCl (Roxicodone -) 5 mg PO Q4H PRN PRN Reason: PAIN LEVEL 4 - 6 Oxycodone HCl (Roxicodone -) 10 mg PO Q4H PRN PRN Reason: PAIN LEVEL 7 - 10 Last Admin: 08/23/17 03:36 Dose: 10 mg Polyethylene Glycol (Miralax (For Daily Use) -) 17 gm PO DAILY [facility] Last Admin: 08/22/17 10:29 Dose: 17 gm Rivaroxaban (Xarelto -) 15 mg PO DAILY@1800 [facility] Last Admin: 08/22/17 17:52 Dose: 15 mg Silver Sulfadiazine (Silvadene -) 1 applic TP BID [facility] Last Admin: 08/22/17 21:28 Dose: 1 applic Tamsulosin HCl (Flomax -) 0.4 mg PO DAILY@0830 [facility] Last Admin: 08/22/17 08:16 Dose: 0.4 mg - Objective Vital Signs: Vital Signs Temperature 98.8 F 08/23/17 05:15 Pulse Rate 81 08/23/17 05:15 Respiratory Rate 22 08/23/17 05:15 Blood Pressure 102/64 08/23/17 05:15 O2 Sat by Pulse Oximetry (%) 94 L 08/23/17 07:25 Eyes: Yes: WNL, Conjunctiva Clear, EOM Intact HENT: Yes: WNL, Atraumatic, Normocephalic Neck: Yes: WNL, Supple, Trachea Midline Cardiovascular: Yes: Pulse Irregular, S1, S2 Respiratory: Yes: Diminished, On BiPap Gastrointestinal: Yes: WNL, Normal Bowel Sounds Genitourinary: Yes: WNL Musculoskeletal: Yes: WNL Extremities: Yes: WNL Edema: No Integumentary: Yes: WNL Neurological: Yes: WNL, Alert, Oriented ...Motor Strength: WNL Psychiatric: Yes: WNL Labs: CBC, BMP 08/23/17 06:30 08/23/17 06:30 INR, PTT INR 1.96 (0.82-1.09) H 08/08/17 05:34 Assessment/Plan IMP: Acute on chronic RF, hyperK+, improved Permanent AF CAD s/p PCI Chronic diastolic CHF Plan: - agree that pt is again developing signs of fluid overload - continue IV Lasix - monitor renal function - avoid nephrotoxic agents - holding UVALDO-I as he has had hyperkalemia on multiple occasions - renal diet -Xarelto, adjusted for renal fx. coverage for dr. Riley
[2017-08-23] MEDS: BISACODYL 5 MG TABLET.DR (FP) PO SCH (09:44)
[2017-08-23] MEDS: ASPIRIN 81 MG CHEWABLE TABLETS PO SCH (09:44)
[2017-08-23] MEDS: ATENOLOL 50 MG TABLET (FP) PO SCH ×2 (09:44→21:53)
[2017-08-23] MEDS: TAMSULOSIN HCL 0.4 MG CAP.ER.24H (FP) PO SCH (09:44)
[2017-08-23] MEDS: SILVER SULFADIAZINE 1% TOP CREAM 50 GM JAR TP SCH ×2 (09:45→21:51)
[2017-08-23] MEDS: NYSTATIN POWDER 100,000 UNITS/GM - 15 GM TOPICAL POWDER TP SCH (09:45)
[2017-08-23] MEDS: metroNIDAZOLE 0.75% TOPICAL GEL 45 GM TUBE TP SCH ×2 (09:45→21:50)
[2017-08-23] MEDS: COLLAGENASE CLOSTRIDIUM HIST. 30 GRAMS TUBE TP SCH (09:45)
[2017-08-23] MEDS: MUPIROCIN 2% TOPICAL OINTMENT 22 GM TUBE TP SCH (09:48)
--- NOTE | 2017-08-23 10:05 | PN ---
Physical Exam: SUBJECTIVE: Patient seen and examined. He wants to know what the big picture is , explained SNF options are limited. He would like issues to be d/w his . OBJECTIVE: Vital Signs Period Temp Pulse Resp BP Sys/Mehta Pulse Ox Last 24 Hr 98.8 F-99.7 F 76-86 18-22 101-129/60-70 94-96 Pe Neuro: alert, awake, cn 2-12intact HEENT: nasal bridge bandage Pulm: CTA anteriorly + NC CV: s1 s2 rate controlled Abd: obese abd, s nt nd +bs Ext: RLE cellulitis, drying, +1 edema, LLE ankle incision + sutures, external fixation in place, able to lift and move LLE Laboratory Results - last 24 hr 08/22/17 08/22/17 08/22/17 08:50 14:35 17:50 WBC RBC Hgb Hct MCV MCH MCHC RDW Plt Count MPV Sodium 137 Potassium 4.8 Chloride 100 Carbon Dioxide 30 Anion Gap 7 L BUN 74 H Creatinine 2.0 H POC Glucometer 173 176 Random Glucose 179 H D Calcium 8.1 L 08/22/17 08/23/17 08/23/17 20:39 05:28 06:30 WBC 5.7 RBC 3.07 L Hgb 9.1 L Hct 28.9 L MCV 93.8 MCH 29.8 MCHC 31.7 L RDW 17.1 H Plt Count 126 L MPV 8.1 Sodium Potassium Chloride Carbon Dioxide Anion Gap BUN Creatinine POC Glucometer 175 192 Random Glucose Calcium 08/23/17 06:30 WBC RBC Hgb Hct MCV MCH MCHC RDW Plt Count MPV Sodium 137 Potassium 5.1 Chloride 101 Carbon Dioxide 31 Anion Gap 5 L BUN 79 H Creatinine 2.2 H POC Glucometer Random Glucose 192 H Calcium 7.9 L Active Medications Generic Name Dose Route Start Last Admin Trade Name Freq PRN Reason Stop Dose Admin Acetaminophen 650 mg 08/21/17 14:31 Tylenol - PO Q4H PRN PAIN LEVEL 1 - 3 Al Hydroxide/Mg Hydroxide 30 ml 08/17/17 12:00 Mylanta Oral Suspension - PO Q6H PRN DYSPEPSIA Albuterol Sulfate 1 amp 08/17/17 10:47 08/22/17 02:30 Ventolin 0.083% Nebulizer Soln - NEB 1 amp Q4H PRN Administration SHORT OF BREATH/WHEEZING Albuterol/Ipratropium 1 amp 08/17/17 14:00 08/23/17 07:20 Duoneb - NEB 1 amp RTID NEIL Administration Aspirin 81 mg 08/11/17 10:00 08/23/17 09:44 Asa - PO 81 mg DAILY NEIL Administration Atenolol 100 mg 08/07/17 13:35 08/23/17 09:44 Tenormin - PO 100 mg BID NEIL Administration Atorvastatin Calcium 80 mg 08/07/17 22:00 08/22/17 21:22 Lipitor - PO 80 mg HS NEIL Administration Bisacodyl 10 mg 08/07/17 10:00 08/23/17 09:44 Dulcolax - PO 10 mg DAILY NEIL Administration Bisacodyl 10 mg 08/15/17 17:44 Dulcolax Suppository - RC PRN PRN CONSTIPATION Collagenase 1 applic 08/07/17 10:00 08/23/17 09:45 Santyl - TP 1 applic DAILY NEIL Administration Furosemide 80 mg 08/19/17 15:30 08/23/17 05:29 Lasix Injection - IVPUSH 80 mg BID@0600,1400 NEIL Administration Insulin Aspart 1 vial 08/07/17 07:00 08/23/17 06:06 Novolog Vial Sliding Scale - SQ Not Given ACHS [facility] Protocol Insulin Detemir 10 units 08/19/17 22:00 08/22/17 21:22 Levemir Vial SQ 10 units HS NEIL Administration Levothyroxine Sodium 100 mcg 08/07/17 07:00 08/23/17 06:06 Synthroid - PO 100 mcg DAILY@0700 NEIL Administration Metronidazole 1 applic 08/07/17 10:00 08/23/17 09:45 Metrogel 0.75% Gel - TP 1 applic BID NEIL Administration Mupirocin 1 applic 08/07/17 10:00 08/23/17 09:48 Bactroban 2% Ointment - TP 1 applic DAILY NEIL Administration Nystatin 1 applic 08/11/17 10:00 08/23/17 09:45 Nystop Powder - TP 1 applic DAILY NEIL Administration Oxycodone HCl 5 mg 08/21/17 14:32 Roxicodone - PO Q4H PRN PAIN LEVEL 4 - 6 Oxycodone HCl 10 mg 08/21/17 14:32 05/28/18 03:36 Roxicodone - PO 10 mg Q4H PRN Administration PAIN LEVEL 7 - 10 Polyethylene Glycol 17 gm 08/21/17 10:00 08/22/17 10:29 Miralax (For Daily Use) - PO 17 gm DAILY NEIL Administration Rivaroxaban 15 mg 08/16/17 18:00 08/22/17 17:52 Xarelto - PO 15 mg DAILY@1800 NEIL Administration Silver Sulfadiazine 1 applic 08/17/17 12:00 08/23/17 09:45 Silvadene - TP 1 applic BID NEIL Administration Tamsulosin HCl 0.4 mg 08/07/17 11:45 08/23/17 09:44 Flomax - PO 0.4 mg DAILY@0830 NEIL Administration Assessment: 61 year old man with a history of atrial fib, chronic diastolic heart failure, HTN, hyperlipidemia, hypothyroidism, gout, anemia, stage 3 CKD, type 2 DM, BPH admitted with acute RLE cellulitis, ARF, hospital course c/b open left ankle fx with subsequent external fixation. Plan: 1. Acute kidney injury with fluid overload on CKD III - Creatinine increase - Continue IV Lasix - Add Zaroxolyn if no improvement in fluid overload 2. Anemia - Hemoglobin stable 3. Chronic diastolic heart failure - Continue Lasix 4. Recent cellulitis of legs with MRSA - Resolved 5. Recent open fracture dislocation of left ankle - s/p external fixation 07/22 6. Permanent atrial fibrillation - Continue atenolol, Xarelto 7. HTN - Continue atenolol, Lasix 8. Hyperlipidemia - Continue Lipitor 9. Type 2 DM - Continue Levemir, Novolog sliding scale 10. Hypothyroidism - Continue Synthroid 11. COPD, obstructive sleep apnea, obesity hypoventilation syndrome - Continue DuoNeb, BiPAP 12. Chronic venous stasis ulcers - Continue wound care 13. Morbid obesity with BMI 65.6 14. History of DVT/PE Visit type - Emergency Visit Emergency Visit: Yes ED Registration Date: 08/06/17 Care time: The patient presented to the Emergency Department on the above date and was hospitalized for further evaluation of their emergent condition. - New Patient This patient is new to me today: No - Critical Care Critical Care patient: No
--- NOTE | 2017-08-23 11:11 | CONSULT ---
Consult - text type - Consultation Consultation Note: ENT CONSULT BRIEF NOTE Full note dictated. 61 YOM, morbidly obeses with CHF, fluid overload and several other medical problems. C/O clogged ears x 2 weeks. Decreased hearing but not really painful. PE: Both external ears and canals with edema and tight, L>R. Soft white debris partially cleaned from both. TM's not seen. Hearing is decreased. A/P: Bilateral otitis externa and ear edema related to obesity and fluid overload. Recommend Cortisporin otic suspension 6 drops BID AU x one week.
[2017-08-23] MEDS: POLYETHYLENE GLYCOL 3350 119 GM BTL PO SCH (11:42)
--- NOTE | 2017-08-23 11:42 | PN ---
Progress Note (short form) - Note Progress Note: PULMONARY Remains on BiPAP. Last Vital Signs Temp Pulse Resp BP Pulse Ox 98.9 F 85 22 129/60 94 L 08/23/17 09:53 08/23/17 09:53 08/23/17 09:53 08/23/17 09:53 08/23/17 07:25 Intake & Output 08/20/17 08/21/17 08/22/17 08/23/17 23:59 23:59 23:59 23:59 Intake Total 660 1650 1160 Output Total 1650 1550 1250 Balance -990 100 -90 Weight 213.324 kg 214.549 kg Gen: on BiPAP Heart: RRR Lung: distant breath sounds Abd: soft, obese, edematous Ext: + edema CBC, BMP 08/23/17 06:30 08/23/17 06:30 Active Medications Acetaminophen (Tylenol -) 650 mg PO Q4H PRN PRN Reason: PAIN LEVEL 1 - 3 Al Hydroxide/Mg Hydroxide (Mylanta Oral Suspension -) 30 ml PO Q6H PRN PRN Reason: DYSPEPSIA Albuterol Sulfate (Ventolin 0.083% Nebulizer Soln -) 1 amp NEB Q4H PRN PRN Reason: SHORT OF BREATH/WHEEZING Last Admin: 08/22/17 02:30 Dose: 1 amp Albuterol/Ipratropium (Duoneb -) 1 amp NEB RTID [facility] Last Admin: 08/23/17 07:20 Dose: 1 amp Aspirin (Asa -) 81 mg PO DAILY [facility] Last Admin: 08/23/17 09:44 Dose: 81 mg Atenolol (Tenormin -) 100 mg PO BID [facility] Last Admin: 08/23/17 09:44 Dose: 100 mg Atorvastatin Calcium (Lipitor -) 80 mg PO HS [facility] Last Admin: 08/22/17 21:22 Dose: 80 mg Bisacodyl (Dulcolax -) 10 mg PO DAILY [facility] Last Admin: 08/23/17 09:44 Dose: 10 mg Bisacodyl (Dulcolax Suppository -) 10 mg RC PRN PRN PRN Reason: CONSTIPATION Collagenase (Santyl -) 1 applic TP DAILY [facility] Last Admin: 08/23/17 09:45 Dose: 1 applic Furosemide (Lasix Injection -) 80 mg IVPUSH BID@0600,1400 [facility] Last Admin: 08/23/17 05:29 Dose: 80 mg Insulin Aspart (Novolog Vial Sliding Scale -) 1 vial SQ [facility]; Protocol Last Admin: 08/23/17 06:06 Dose: Not Given Insulin Detemir (Levemir Vial) 10 units SQ HS [facility] Last Admin: 08/22/17 21:22 Dose: 10 units Levothyroxine Sodium (Synthroid -) 100 mcg PO DAILY@0700 [facility] Last Admin: 08/23/17 06:06 Dose: 100 mcg Metronidazole (Metrogel 0.75% Gel -) 1 applic TP BID [facility] Last Admin: 08/23/17 09:45 Dose: 1 applic Mupirocin (Bactroban 2% Ointment -) 1 applic TP DAILY [facility] Last Admin: 08/23/17 09:48 Dose: 1 applic Nystatin (Nystop Powder -) 1 applic TP DAILY [facility] Last Admin: 08/23/17 09:45 Dose: 1 applic Oxycodone HCl (Roxicodone -) 5 mg PO Q4H PRN PRN Reason: PAIN LEVEL 4 - 6 Oxycodone HCl (Roxicodone -) 10 mg PO Q4H PRN PRN Reason: PAIN LEVEL 7 - 10 Last Admin: 08/23/17 03:36 Dose: 10 mg Polyethylene Glycol (Miralax (For Daily Use) -) 17 gm PO DAILY [facility] Last Admin: 08/22/17 10:29 Dose: 17 gm Rivaroxaban (Xarelto -) 15 mg PO DAILY@1800 [facility] Last Admin: 08/22/17 17:52 Dose: 15 mg Silver Sulfadiazine (Silvadene -) 1 applic TP BID [facility] Last Admin: 08/23/17 09:45 Dose: 1 applic Tamsulosin HCl (Flomax -) 0.4 mg PO DAILY@0830 [facility] Last Admin: 08/23/17 09:44 Dose: 0.4 mg A/P Acute on Chronic Diastolic Heart Failure Acute on Chronic Renal Failure Volume Overload Pulmonary HTN Atrial Fibrillation CAD COPD Morbid Obesity ASHLEY/OHS - continue lasix - monitor urine output, creatinine - daily weights - keep net negative - inhaled bronchodilators - no indication for systemic steroids at this time - O2 to keep SpO2 >90% - BiPAP to assist in work of breathing - rate controlled with atenolol - continue anticoagulation Problem List - Problems (1) Acute on chronic diastolic (congestive) heart failure Code(s): I50.33 - ACUTE ON CHRONIC DIASTOLIC (CONGESTIVE) HEART FAILURE (2) Acute on chronic renal failure Code(s): N17.9 - ACUTE KIDNEY FAILURE, UNSPECIFIED; N18.9 - CHRONIC KIDNEY DISEASE, UNSPECIFIED (3) Atrial fibrillation Code(s): I48.91 - UNSPECIFIED ATRIAL FIBRILLATION Qualifiers: Atrial fibrillation type: chronic Qualified Code(s): I48.2 - Chronic atrial fibrillation (4) CAD (coronary artery disease) Code(s): I25.10 - ATHSCL HEART DISEASE OF [place] CORONARY ARTERY W/O ANG PCTRS (5) COPD (chronic obstructive pulmonary disease) Code(s): J44.9 - CHRONIC OBSTRUCTIVE PULMONARY DISEASE, UNSPECIFIED (6) Diabetes Code(s): E11.9 - TYPE 2 DIABETES MELLITUS WITHOUT COMPLICATIONS (7) Obesities, morbid Code(s): E66.01 - MORBID (SEVERE) OBESITY DUE TO EXCESS CALORIES (8) Pulmonary HTN Code(s): I27.20 - PULMONARY HYPERTENSION, UNSPECIFIED (9) Sleep apnea Code(s): G47.30 - SLEEP APNEA, UNSPECIFIED (10) Volume overload Code(s): E87.70 - FLUID OVERLOAD, UNSPECIFIED
--- NOTE | 2017-08-23 12:25 | PN ---
Progress Note, Physician History of Present Illness: was c/o of decreased hearing seen by ent otitis - Current Medication List Current Medications: Active Medications Acetaminophen (Tylenol -) 650 mg PO Q4H PRN PRN Reason: PAIN LEVEL 1 - 3 Al Hydroxide/Mg Hydroxide (Mylanta Oral Suspension -) 30 ml PO Q6H PRN PRN Reason: DYSPEPSIA Albuterol Sulfate (Ventolin 0.083% Nebulizer Soln -) 1 amp NEB Q4H PRN PRN Reason: SHORT OF BREATH/WHEEZING Last Admin: 08/22/17 02:30 Dose: 1 amp Albuterol/Ipratropium (Duoneb -) 1 amp NEB RTID [facility] Last Admin: 08/23/17 07:20 Dose: 1 amp Aspirin (Asa -) 81 mg PO DAILY [facility] Last Admin: 08/23/17 09:44 Dose: 81 mg Atenolol (Tenormin -) 100 mg PO BID [facility] Last Admin: 08/23/17 09:44 Dose: 100 mg Atorvastatin Calcium (Lipitor -) 80 mg PO [facility] Last Admin: 08/22/17 21:22 Dose: 80 mg Bisacodyl (Dulcolax -) 10 mg PO DAILY [facility] Last Admin: 08/23/17 09:44 Dose: 10 mg Bisacodyl (Dulcolax Suppository -) 10 mg RC PRN PRN PRN Reason: CONSTIPATION Collagenase (Santyl -) 1 applic TP DAILY [facility] Last Admin: 08/23/17 09:45 Dose: 1 applic Furosemide (Lasix Injection -) 80 mg IVPUSH BID@0600,1400 [facility] Last Admin: 08/23/17 05:29 Dose: 80 mg Insulin Aspart (Novolog Vial Sliding Scale -) 1 vial SQ [facility]; Protocol Last Admin: 08/23/17 11:42 Dose: 2 units Insulin Detemir (Levemir Vial) 10 units SQ [facility] Last Admin: 08/22/17 21:22 Dose: 10 units Levothyroxine Sodium (Synthroid -) 100 mcg PO DAILY@0700 [facility] Last Admin: 08/23/17 06:06 Dose: 100 mcg Metronidazole (Metrogel 0.75% Gel -) 1 applic TP BID [facility] Last Admin: 08/23/17 09:45 Dose: 1 applic Mupirocin (Bactroban 2% Ointment -) 1 applic TP DAILY [facility] Last Admin: 08/23/17 09:48 Dose: 1 applic Nystatin (Nystop Powder -) 1 applic TP DAILY [facility] Last Admin: 08/23/17 09:45 Dose: 1 applic Oxycodone HCl (Roxicodone -) 5 mg PO Q4H PRN PRN Reason: PAIN LEVEL 4 - 6 Oxycodone HCl (Roxicodone -) 10 mg PO Q4H PRN PRN Reason: PAIN LEVEL 7 - 10 Last Admin: 08/23/17 03:36 Dose: 10 mg Polyethylene Glycol (Miralax (For Daily Use) -) 17 gm PO DAILY [facility] Last Admin: 08/23/17 11:42 Dose: 17 gm Rivaroxaban (Xarelto -) 15 mg PO DAILY@1800 [facility] Last Admin: 08/22/17 17:52 Dose: 15 mg Silver Sulfadiazine (Silvadene -) 1 applic TP BID [facility] Last Admin: 08/23/17 09:45 Dose: 1 applic Tamsulosin HCl (Flomax -) 0.4 mg PO DAILY@0830 [facility] Last Admin: 08/23/17 09:44 Dose: 0.4 mg - Objective Vital Signs: Vital Signs Temperature 98.9 F 08/23/17 09:53 Pulse Rate 85 08/23/17 09:53 Respiratory Rate 22 08/23/17 09:53 Blood Pressure 129/60 08/23/17 09:53 O2 Sat by Pulse Oximetry (%) 94 L 08/23/17 07:25 Constitutional: Yes: No Distress, Calm, Obese Cardiovascular: Yes: Regular Rate and Rhythm, S1, S2 Respiratory: Yes: Regular, On BiPap, On Nasal O2 Gastrointestinal: Yes: Normal Bowel Sounds, Soft Musculoskeletal: Yes: WNL Extremities: Yes: Other Neurological: Yes: Alert, Oriented Psychiatric: Yes: Alert, Oriented Labs: CBC, BMP 08/23/17 06:30 08/23/17 06:30 INR, PTT INR 1.96 (0.82-1.09) H 08/08/17 05:34 Assessment/Plan Problem List - Problems (1) Acute renal insufficiency Code(s): N28.9 - DISORDER OF KIDNEY AND URETER, UNSPECIFIED (2) Atrial fibrillation Code(s): I48.91 - UNSPECIFIED ATRIAL FIBRILLATION Qualifiers: Atrial fibrillation type: chronic Qualified Code(s): I48.2 - Chronic atrial fibrillation (3) BPH (benign prostatic hyperplasia) Code(s): N40.0 - BENIGN PROSTATIC HYPERPLASIA WITHOUT LOWER URINRY TRACT SYMP (4) CHF (congestive heart failure) Code(s): I50.9 - HEART FAILURE, UNSPECIFIED Qualifiers: Heart failure type: unspecified Heart failure chronicity: acute on chronic Qualified Code(s): I50.9 - Heart failure, unspecified (5) Acute renal failure (ARF) Code(s): N17.9 - ACUTE KIDNEY FAILURE, UNSPECIFIED (6) CAD (coronary artery disease) Code(s): I25.10 - ATHSCL HEART DISEASE OF [place] CORONARY ARTERY W/O ANG PCTRS (7) COPD (chronic obstructive pulmonary disease) Code(s): J44.9 - CHRONIC OBSTRUCTIVE PULMONARY DISEASE, UNSPECIFIED (8) Cellulitis of right leg Code(s): L03.115 - CELLULITIS OF RIGHT LOWER LIMB (9) Diabetes Code(s): E11.9 - TYPE 2 DIABETES MELLITUS WITHOUT COMPLICATIONS (10) Dyslipidemia Code(s): E78.5 - HYPERLIPIDEMIA, UNSPECIFIED (11) Obesities, morbid Code(s): E66.01 - MORBID (SEVERE) OBESITY DUE TO EXCESS CALORIES (12) Open left ankle fracture Code(s): S82.892B - OTH FRACTURE OF LEFT LOWER LEG, INIT FOR OPN FX TYPE I/2 Qualifiers: Encounter type: initial encounter (13) Sleep apnea Code(s): G47.30 - SLEEP APNEA, UNSPECIFIED (14) Venous (peripheral) insufficiency Code(s): I87.2 - VENOUS INSUFFICIENCY (CHRONIC) (PERIPHERAL) (15) Venous ulcer Code(s): I87.8 - OTHER SPECIFIED DISORDERS OF VEINS 16 otitis Assessment/Plan 61 y.o. male with PMH of DM, morbid obesity, CAD, CHF, AFIB, CKD, BPH, LLE compound fracture s/p external fixation with hardware in place, RLE cellulitis, LE infected ulcers receiving IV antibiotics in [place] presenting with urinary retention, KRUNAL and generalized rash and elevated Vancomycin levels Hx of RLE cellulitis/LLE infected ulcers - appears to have improved Rash resolving KRUNAL on CKD Urinary retention plan continue current mgmt nutrition rest continue d/w the rest as per ent
[2017-08-23] MEDS: NEOMYCIN/POLYMYXN/HC OTIC SUSPENSION 10 ML BOTTLE AU SCH ×2 (14:41→21:50)
[2017-08-23] MEDS ORDERED: PT OWN MED DRAWER 7, Y5N ONE (17:50)
[2017-08-23] MEDS: RIVAROXABAN 15 MG TABLET PO SCH (17:52)
--- NOTE | 2017-08-23 21:31 | PN ---
Progress Note (short form) - Note Progress Note: Problems 1. CKD 2. KRUNAL 3. volume overload 4. morbid obesity 5. CAD 6. cellulitis 7. s/p fall 8. a-fib 9. DM 10. hypothyroidism 11. HLD 12. CHF 13. s/p leg fracture 14. hyperkalemia 15. constipation Current Medications Acetaminophen (Tylenol -) 650 mg PO Q4H PRN PRN Reason: PAIN LEVEL 1 - 3 Last Admin: 08/23/17 14:33 Dose: 650 mg Al Hydroxide/Mg Hydroxide (Mylanta Oral Suspension -) 30 ml PO Q6H PRN PRN Reason: DYSPEPSIA Albuterol Sulfate (Ventolin 0.083% Nebulizer Soln -) 1 amp NEB Q4H PRN PRN Reason: SHORT OF BREATH/WHEEZING Last Admin: 08/22/17 02:30 Dose: 1 amp Albuterol/Ipratropium (Duoneb -) 1 amp NEB RTID [facility] Last Admin: 08/23/17 20:05 Dose: 1 amp Aspirin (Asa -) 81 mg PO DAILY [facility] Last Admin: 08/23/17 09:44 Dose: 81 mg Atenolol (Tenormin -) 100 mg PO BID [facility] Last Admin: 08/23/17 09:44 Dose: 100 mg Atorvastatin Calcium (Lipitor -) 80 mg PO HS [facility] Last Admin: 08/22/17 21:22 Dose: 80 mg Bisacodyl (Dulcolax -) 10 mg PO DAILY [facility] Last Admin: 08/23/17 09:44 Dose: 10 mg Bisacodyl (Dulcolax Suppository -) 10 mg RC PRN PRN PRN Reason: CONSTIPATION Collagenase (Santyl -) 1 applic TP DAILY [facility] Last Admin: 08/23/17 09:45 Dose: 1 applic Furosemide (Lasix Injection -) 80 mg IVPUSH BID@0600,1400 [facility] Last Admin: 08/23/17 14:32 Dose: 80 mg Insulin Aspart (Novolog Vial Sliding Scale -) 1 vial SQ ACHS [facility]; Protocol Last Admin: 08/23/17 17:13 Dose: 2 units Insulin Detemir (Levemir Vial) 10 units SQ HS [facility] Last Admin: 08/22/17 21:22 Dose: 10 units Levothyroxine Sodium (Synthroid -) 100 mcg PO DAILY@0700 [facility] Last Admin: 08/23/17 06:06 Dose: 100 mcg Metronidazole (Metrogel 0.75% Gel -) 1 applic TP BID [facility] Last Admin: 08/23/17 09:45 Dose: 1 applic Mupirocin (Bactroban 2% Ointment -) 1 applic TP DAILY [facility] Last Admin: 08/23/17 09:48 Dose: 1 applic Neomycin/Polymyxin/Hydrocortisone (Cortisporin Otic Suspenstion -) 6 drop AU BID [facility] Stop: 08/30/17 13:29 Last Admin: 08/23/17 14:41 Dose: 6 drop Nystatin (Nystop Powder -) 1 applic TP DAILY [facility] Last Admin: 08/23/17 09:45 Dose: 1 applic Oxycodone HCl (Roxicodone -) 5 mg PO Q4H PRN PRN Reason: PAIN LEVEL 4 - 6 Oxycodone HCl (Roxicodone -) 10 mg PO Q4H PRN PRN Reason: PAIN LEVEL 7 - 10 Last Admin: 08/23/17 19:29 Dose: 10 mg Polyethylene Glycol (Miralax (For Daily Use) -) 17 gm PO DAILY [facility] Last Admin: 08/23/17 11:42 Dose: 17 gm Rivaroxaban (Xarelto -) 15 mg PO DAILY@1800 [facility] Last Admin: 08/23/17 17:52 Dose: 15 mg Silver Sulfadiazine (Silvadene -) 1 applic TP BID [facility] Last Admin: 08/23/17 09:45 Dose: 1 applic Tamsulosin HCl (Flomax -) 0.4 mg PO DAILY@0830 [facility] Last Admin: 08/23/17 09:44 Dose: 0.4 mg Last Vital Signs Temp Pulse Resp BP Pulse Ox 99.2 F 78 22 110/68 94 L 08/23/17 18:00 08/23/17 18:00 08/23/17 18:00 08/23/17 18:00 08/23/17 07:25 CBC, BMP 08/23/17 06:30 08/23/17 06:30 IMP- CKD her renal function is a baseline which has been stable at this level since 2014 plan continue current mgmt
[2017-08-23] MEDS: ATORVASTATIN CA 80 MG TABLET (FP) PO SCH (21:47)
[2017-08-23] MEDS: INSULIN (LEVEMIR) 100 UNITS/ML UNITS SQ SCH (21:48)
[2017-08-24] MEDS: oxyCODONE HCL 5 MG TABLET PO PRN ×4 (05:09→19:06)
[2017-08-24] MEDS: FUROSEMIDE 40 MG/4 ML INJECTABLE VIAL IVPUSH SCH ×2 (05:17→15:09)
[2017-08-24] MEDS: ALBUTEROL SO4 0.083% IH SOL 2.5 MG/3 ML VIAL.NEB. NEB PRN (05:20)
[2017-08-24] MEDS: LEVOTHYROXINE NA 100 MCG TABLET (FP) PO SCH (06:06)
[2017-08-24] MEDS: INSULIN SLIDING SCALE (NOVOLOG) 1 VIAL SQ SCH ×4 (06:06→21:57)
[2017-08-24 08:23] LABS: CHLORIDE 100 mmol/L (98-107); POTASSIUM 4.7 mmol/L (3.5-5.1); SODIUM 136 mmol/L (136-145)
[2017-08-24] MEDS: TAMSULOSIN HCL 0.4 MG CAP.ER.24H (FP) PO SCH (08:24)
[2017-08-24 08:27] LABS: ANION GAP 6 (8-16); BLOOD UREA NITROGEN 80 mg/dL (7-18); CALCIUM 8.2 mg/dL (8.5-10.1); CO2 30 mmol/L (21-32); CREATININE 2.2 mg/dL (0.7-1.3); GLUCOSE,RANDOM 150 mg/dL (74-106)
[2017-08-24] MEDS: ALBUTEROL SO4 2.5/IPRATROPIUM 0.5 INH SOL 3 ML VIAL.NEB. NEB SCH ×3 (08:52→20:33)
--- NOTE | 2017-08-24 09:01 | PN ---
Progress Note, Physician Chief Complaint: no distress No CP - Current Medication List Current Medications: Active Medications Acetaminophen (Tylenol -) 650 mg PO Q4H PRN PRN Reason: PAIN LEVEL 1 - 3 Last Admin: 08/23/17 14:33 Dose: 650 mg Al Hydroxide/Mg Hydroxide (Mylanta Oral Suspension -) 30 ml PO Q6H PRN PRN Reason: DYSPEPSIA Albuterol Sulfate (Ventolin 0.083% Nebulizer Soln -) 1 amp NEB Q4H PRN PRN Reason: SHORT OF BREATH/WHEEZING Last Admin: 08/24/17 05:20 Dose: 1 amp Albuterol/Ipratropium (Duoneb -) 1 amp NEB RTID [facility] Last Admin: 08/24/17 08:52 Dose: 1 amp Aspirin (Asa -) 81 mg PO DAILY [facility] Last Admin: 08/23/17 09:44 Dose: 81 mg Atenolol (Tenormin -) 100 mg PO BID [facility] Last Admin: 08/23/17 21:53 Dose: 100 mg Atorvastatin Calcium (Lipitor -) 80 mg PO HS [facility] Last Admin: 08/23/17 21:47 Dose: 80 mg Bisacodyl (Dulcolax -) 10 mg PO DAILY [facility] Last Admin: 08/23/17 09:44 Dose: 10 mg Bisacodyl (Dulcolax Suppository -) 10 mg RC PRN PRN PRN Reason: CONSTIPATION Collagenase (Santyl -) 1 applic TP DAILY [facility] Last Admin: 08/23/17 09:45 Dose: 1 applic Furosemide (Lasix Injection -) 80 mg IVPUSH BID@0600,1400 [facility] Last Admin: 08/24/17 05:17 Dose: 80 mg Insulin Aspart (Novolog Vial Sliding Scale -) 1 vial SQ [facility]; Protocol Last Admin: 08/24/17 06:06 Dose: Not Given Insulin Detemir (Levemir Vial) 10 units SQ [facility] Last Admin: 08/23/17 21:48 Dose: 10 units Levothyroxine Sodium (Synthroid -) 100 mcg PO DAILY@0700 [facility] Last Admin: 08/24/17 06:06 Dose: 100 mcg Metronidazole (Metrogel 0.75% Gel -) 1 applic TP BID [facility] Last Admin: 08/23/17 21:50 Dose: 1 applic Mupirocin (Bactroban 2% Ointment -) 1 applic TP DAILY [facility] Last Admin: 08/23/17 09:48 Dose: 1 applic Neomycin/Polymyxin/Hydrocortisone (Cortisporin Otic Suspenstion -) 6 drop AU BID [facility] Stop: 08/30/17 13:29 Last Admin: 08/23/17 21:50 Dose: 6 drop Nystatin (Nystop Powder -) 1 applic TP DAILY [facility] Last Admin: 08/23/17 09:45 Dose: 1 applic Oxycodone HCl (Roxicodone -) 5 mg PO Q4H PRN PRN Reason: PAIN LEVEL 4 - 6 Oxycodone HCl (Roxicodone -) 10 mg PO Q4H PRN PRN Reason: PAIN LEVEL 7 - 10 Last Admin: 08/24/17 05:09 Dose: 10 mg Polyethylene Glycol (Miralax (For Daily Use) -) 17 gm PO DAILY [facility] Last Admin: 08/23/17 11:42 Dose: 17 gm Rivaroxaban (Xarelto -) 15 mg PO DAILY@1800 [facility] Last Admin: 08/23/17 17:52 Dose: 15 mg Silver Sulfadiazine (Silvadene -) 1 applic TP BID [facility] Last Admin: 08/23/17 21:51 Dose: 1 applic Tamsulosin HCl (Flomax -) 0.4 mg PO DAILY@0830 [facility] Last Admin: 08/23/17 09:44 Dose: 0.4 mg - Objective Vital Signs: Vital Signs Temperature 98.7 F 08/24/17 07:30 Pulse Rate 79 08/24/17 07:30 Respiratory Rate 20 08/24/17 07:30 Blood Pressure 101/68 08/24/17 07:30 O2 Sat by Pulse Oximetry (%) 97 08/24/17 07:40 Constitutional: Yes: No Distress Cardiovascular: Yes: Pulse Irregular Respiratory: Yes: CTA Bilaterally Gastrointestinal: Yes: Soft, Abdomen, Obese Edema: Yes Edema: LLE: 1+, RLE: 1+ Neurological: Yes: Alert, Oriented Labs: CBC, BMP 08/23/17 06:30 08/24/17 06:30 INR, PTT INR 1.96 (0.82-1.09) H 08/08/17 05:34 Laboratory Tests 08/23/17 08/24/17 06:30 06:30 WBC 5.7 Hgb 9.1 L Plt Count 126 L Sodium 136 Chloride 100 BUN 80 H Creatinine 2.2 H Assessment/Plan IMP: Acute on chronic RF, hyperK+, improved Permanent AF CAD s/p PCI Chronic diastolic CHF Plan: - continue IV Lasix, would transition to PO in next 24 hours - monitor renal function - avoid nephrotoxic agents - holding UVALDO-I as he has had hyperkalemia on multiple occasions - renal diet -Xarelto, adjusted for renal fx.
--- NOTE | 2017-08-24 10:36 | CONS ---
DATE OF CONSULTATION: HISTORY OF PRESENT ILLNESS: This is a 61-year-old male who is morbidly obese with chronic heart failure, chronic renal failure, current volume overload, pulmonary hypertension, atrial fibrillation, coronary artery disease, COPD, and obstructive sleep apnea. The patient is maintained on BiPAP. The patient is complaining of decreased hearing and clogged ears over the last couple of weeks which has worsened recently. The patient denies any other significant history of ear problems. PHYSICAL EXAMINATION: General: The patient is lying absolutely flat in the bed with no pillow. He is morbidly obese, awake, alert, and oriented. Vital Signs: The patient is afebrile with recorded blood pressures on the chart of 113/74, pulse of 81, and respirations of 20. Oral Cavity: The oral cavity shows no lesions. The oropharynx is patent. The nose has a BiPAP mask, it was not removed. Neck: The patients neck is obese, no gross masses. Ears: The right ear shows general edema of the external ear but no cellulitis with narrowing of the canal and a white soft debris in there. The canal was cleaned about half-way down. On the left side the canal is more swollen, is somewhat tender to manipulation, and there is the same soft white debris. This was partially cleaned. Again on the left side no cellulitis but the external ear shows general edema. LABORATORY DATA: The patients white blood cell count is 5.5. IMPRESSION: Bilateral otitis externa with edema of the outer ear and ear canals related to his fluid overload and obesity. RECOMMENDATIONS: Cortisporin otic suspension drops 6 drops both ears b.i.d for 1 week. If the patient is still not hearing well, then followup would be appropriate. BRIANA PINEDA M.D. [id number]
--- NOTE | 2017-08-24 11:03 | PN ---
Progress Note, Physician Chief Complaint: Weekend coverage appreciated. C/o discomfort of the sacral area. Wound care of the sacral area discussed with the staff History of Present Illness: Recent hospitalization for acute cellulitis RLE after fall [employer]. The patient sustained open left ankle fracture while at [facility] and had subsequent external fixation by Dr. Thayer Morbid obesity. ASHLEY. Bilateral PE. Pulmonary HTN-CTEPH , ASHLEY AND CLASS 2 PAH. CHF-mostly diastolic. ASHD. STEMI in 2016 with MICHAEL x2 placed at [facility]. Chronic A.Fib-on a/c-Xarelto/ASA now. Gout. Gouty arthritis CKD 3 DM type 2. Chronic DVT Right thigh, Stasis ulcers, edema. Chronic wound right Ankle/dobbs-RX at [facility]-groing multiple organisms. - Current Medication List Current Medications: Active Medications Acetaminophen (Tylenol -) 650 mg PO Q4H PRN PRN Reason: PAIN LEVEL 1 - 3 Last Admin: 08/23/17 14:33 Dose: 650 mg Al Hydroxide/Mg Hydroxide (Mylanta Oral Suspension -) 30 ml PO Q6H PRN PRN Reason: DYSPEPSIA Albuterol Sulfate (Ventolin 0.083% Nebulizer Soln -) 1 amp NEB Q4H PRN PRN Reason: SHORT OF BREATH/WHEEZING Last Admin: 08/24/17 05:20 Dose: 1 amp Albuterol/Ipratropium (Duoneb -) 1 amp NEB RTID [facility] Last Admin: 08/24/17 08:52 Dose: 1 amp Aspirin (Asa -) 81 mg PO DAILY [facility] Last Admin: 08/23/17 09:44 Dose: 81 mg Atenolol (Tenormin -) 100 mg PO BID [facility] Last Admin: 08/23/17 21:53 Dose: 100 mg Atorvastatin Calcium (Lipitor -) 80 mg PO HS [facility] Last Admin: 08/23/17 21:47 Dose: 80 mg Bisacodyl (Dulcolax -) 10 mg PO DAILY [facility] Last Admin: 08/23/17 09:44 Dose: 10 mg Bisacodyl (Dulcolax Suppository -) 10 mg RC PRN PRN PRN Reason: CONSTIPATION Collagenase (Santyl -) 1 applic TP DAILY [facility] Last Admin: 08/23/17 09:45 Dose: 1 applic Furosemide (Lasix Injection -) 80 mg IVPUSH BID@0600,1400 [facility] Last Admin: 08/24/17 05:17 Dose: 80 mg Insulin Aspart (Novolog Vial Sliding Scale -) 1 vial SQ [facility]; Protocol Last Admin: 08/24/17 06:06 Dose: Not Given Insulin Detemir (Levemir Vial) 10 units SQ [facility] Last Admin: 08/23/17 21:48 Dose: 10 units Levothyroxine Sodium (Synthroid -) 100 mcg PO DAILY@0700 [facility] Last Admin: 08/24/17 06:06 Dose: 100 mcg Metronidazole (Metrogel 0.75% Gel -) 1 applic TP BID [facility] Last Admin: 08/23/17 21:50 Dose: 1 applic Mupirocin (Bactroban 2% Ointment -) 1 applic TP DAILY [facility] Last Admin: 08/23/17 09:48 Dose: 1 applic Neomycin/Polymyxin/Hydrocortisone (Cortisporin Otic Suspenstion -) 6 drop AU BID [facility] Stop: 08/30/17 13:29 Last Admin: 08/23/17 21:50 Dose: 6 drop Nystatin (Nystop Powder -) 1 applic TP DAILY [facility] Last Admin: 08/23/17 09:45 Dose: 1 applic Oxycodone HCl (Roxicodone -) 5 mg PO Q4H PRN PRN Reason: PAIN LEVEL 4 - 6 Oxycodone HCl (Roxicodone -) 10 mg PO Q4H PRN PRN Reason: PAIN LEVEL 7 - 10 Last Admin: 08/24/17 05:09 Dose: 10 mg Polyethylene Glycol (Miralax (For Daily Use) -) 17 gm PO DAILY [facility] Last Admin: 08/23/17 11:42 Dose: 17 gm Rivaroxaban (Xarelto -) 15 mg PO DAILY@1800 [facility] Last Admin: 08/23/17 17:52 Dose: 15 mg Silver Sulfadiazine (Silvadene -) 1 applic TP BID [facility] Last Admin: 08/23/17 21:51 Dose: 1 applic Tamsulosin HCl (Flomax -) 0.4 mg PO DAILY@0830 [facility] Last Admin: 08/23/17 09:44 Dose: 0.4 mg - Objective Vital Signs: Vital Signs Temperature 98.7 F 08/24/17 07:30 Pulse Rate 79 08/24/17 07:30 Respiratory Rate 20 08/24/17 07:30 Blood Pressure 101/68 08/24/17 07:30 O2 Sat by Pulse Oximetry (%) 97 08/24/17 07:40 Constitutional: Yes: No Distress, Calm Eyes: Yes: Conjunctiva Clear, EOM Intact HENT: Yes: Atraumatic, Normocephalic, Other (WAS c/o [place] and was found to have otitis externa.). No: Drooling Neck: Yes: Supple, Trachea Midline. No: Decreased ROM, Lymphadenopathy Cardiovascular: Yes: Pulse Irregular, S1, S2. No: JVD, Rub Respiratory: Yes: Regular, CTA Bilaterally, Diminished (B/B), On BiPap, Rales (B /B). No: Accessory Muscle Use, Bradypnea, Hyperresonant, Intubated, Mechanically Ventilated, Rhonchi, SOB, Stridor, Tachypnea, Wheezes Genitourinary: No: Anuria, Bladder Distention Breast(s): Yes: WNL Musculoskeletal: Yes: Back Pain. No: Joint Stiffness, Joint Swelling Extremities: No: Calf Tenderness, Cold, Shortened Edema: Yes Edema: LLE: 1+, RLE: 1+ Peripheral Pulses WNL: No Integumentary: Yes: Rash (Extensive rash of candidal dermatitis and pressure injury), Other Wound/Incision: Yes: Other (Right frontal calf skin wound-clean dressing removed -clean. Left ankle-external fixation-wounds no significant infection.) Neurological: Yes: Alert, Oriented (occasinally confused) ...Motor Strength: WNL Psychiatric: Yes: Alert, Oriented, Agitated (occasionally) Labs: CBC, BMP 08/23/17 06:30 08/24/17 06:30 INR, PTT INR 1.96 (0.82-1.09) H 08/08/17 05:34 Problem List - Problems (1) Acute renal insufficiency Assessment/Plan: Potassium improved. Avoid UVALDO and ARB. Follow renal fx. dR FREED CONSULT APPRECIATED. Code(s): N28.9 - DISORDER OF KIDNEY AND URETER, UNSPECIFIED (2) Atrial fibrillation Assessment/Plan: Continue Heparin IV, VR control. Code(s): I48.91 - UNSPECIFIED ATRIAL FIBRILLATION Qualifiers: Atrial fibrillation type: chronic Qualified Code(s): I48.2 - Chronic atrial fibrillation (3) BPH (benign prostatic hyperplasia) Assessment/Plan: Continue Boyle, Flomax as per Dr Ivy Code(s): N40.0 - BENIGN PROSTATIC HYPERPLASIA WITHOUT LOWER URINRY TRACT SYMP (4) CHF (congestive heart failure) Assessment/Plan: PO Lasix , Follow edema, UA output Code(s): I50.9 - HEART FAILURE, UNSPECIFIED Qualifiers: Heart failure type: unspecified Heart failure chronicity: acute on chronic Qualified Code(s): I50.9 - Heart failure, unspecified (5) Accident due to mechanical fall without injury Code(s): W19.XXXA - UNSPECIFIED FALL, INITIAL ENCOUNTER Qualifiers: Encounter type: subsequent encounter Qualified Code(s): W19.XXXD - Unspecified fall, subsequent encounter (6) Severe pain Code(s): R52 - PAIN, UNSPECIFIED (7) Urinary (tract) obstruction Code(s): N13.9 - OBSTRUCTIVE AND REFLUX UROPATHY, UNSPECIFIED (8) Unspecified open wound, right ankle, initial encounter Code(s): S91.001A - UNSPECIFIED OPEN WOUND, RIGHT ANKLE, INITIAL ENCOUNTER (9) Constipation by delayed colonic transit Code(s): K59.01 - SLOW TRANSIT CONSTIPATION (10) Diabetes 1.5, managed as type 1 Code(s): E10.9 - TYPE 1 DIABETES MELLITUS WITHOUT COMPLICATIONS
[2017-08-24] MEDS: BISACODYL 5 MG TABLET.DR (FP) PO SCH (11:24)
[2017-08-24] MEDS: NEOMYCIN/POLYMYXN/HC OTIC SUSPENSION 10 ML BOTTLE AU SCH ×2 (11:25→21:55)
[2017-08-24] MEDS: NYSTATIN POWDER 100,000 UNITS/GM - 15 GM TOPICAL POWDER TP SCH (11:25)
[2017-08-24] MEDS: ASPIRIN 81 MG CHEWABLE TABLETS PO SCH (11:25)
[2017-08-24] MEDS: SILVER SULFADIAZINE 1% TOP CREAM 50 GM JAR TP SCH ×2 (11:26→21:57)
[2017-08-24] MEDS: MUPIROCIN 2% TOPICAL OINTMENT 22 GM TUBE TP SCH (11:26)
[2017-08-24] MEDS: metroNIDAZOLE 0.75% TOPICAL GEL 45 GM TUBE TP SCH ×2 (11:26→21:56)
[2017-08-24] MEDS: COLLAGENASE CLOSTRIDIUM HIST. 30 GRAMS TUBE TP SCH (11:26)
[2017-08-24] MEDS: ATENOLOL 50 MG TABLET (FP) PO SCH ×2 (11:27→21:58)
[2017-08-24] MEDS: POLYETHYLENE GLYCOL 3350 119 GM BTL PO SCH (13:06)
--- NOTE | 2017-08-24 14:02 | PN ---
Progress Note (short form) - Note Progress Note: NAD on NIPPV, 40% FiO2. No acute events documented overnight. Intake & Output 08/21/17 08/22/17 08/23/17 08/24/17 23:59 23:59 23:59 23:59 Intake Total 1650 1160 400 750 Output Total 1550 1250 850 Balance 100 -90 400 -100 Weight 470 lb 4.8 oz 475 lb 473 lb 465 lb 9 oz Last Vital Signs Temp Pulse Resp BP Pulse Ox 98.7 F 76 18 98/43 97 08/24/17 10:00 08/24/17 10:00 08/24/17 10:00 08/24/17 10:00 08/24/17 11:48 Active Medications Acetaminophen (Tylenol -) 650 mg PO Q4H PRN PRN Reason: PAIN LEVEL 1 - 3 Last Admin: 08/23/17 14:33 Dose: 650 mg Al Hydroxide/Mg Hydroxide (Mylanta Oral Suspension -) 30 ml PO Q6H PRN PRN Reason: DYSPEPSIA Albuterol Sulfate (Ventolin 0.083% Nebulizer Soln -) 1 amp NEB Q4H PRN PRN Reason: SHORT OF BREATH/WHEEZING Last Admin: 08/24/17 05:20 Dose: 1 amp Albuterol/Ipratropium (Duoneb -) 1 amp NEB RTID [facility] Last Admin: 08/24/17 08:52 Dose: 1 amp Aspirin (Asa -) 81 mg PO DAILY [facility] Last Admin: 08/24/17 11:25 Dose: 81 mg Atenolol (Tenormin -) 100 mg PO BID [facility] Last Admin: 08/24/17 11:27 Dose: Not Given Atorvastatin Calcium (Lipitor -) 80 mg PO HS [facility] Last Admin: 08/23/17 21:47 Dose: 80 mg Bisacodyl (Dulcolax -) 10 mg PO DAILY [facility] Last Admin: 08/24/17 11:24 Dose: 10 mg Bisacodyl (Dulcolax Suppository -) 10 mg RC PRN PRN PRN Reason: CONSTIPATION Collagenase (Santyl -) 1 applic TP DAILY [facility] Last Admin: 08/24/17 11:26 Dose: 1 applic Furosemide (Lasix Injection -) 80 mg IVPUSH BID@0600,1400 [facility] Last Admin: 08/24/17 05:17 Dose: 80 mg Insulin Aspart (Novolog Vial Sliding Scale -) 1 vial SQ ACHS [facility]; Protocol Last Admin: 08/24/17 06:06 Dose: Not Given Insulin Detemir (Levemir Vial) 10 units SQ HS [facility] Last Admin: 08/23/17 21:48 Dose: 10 units Levothyroxine Sodium (Synthroid -) 100 mcg PO DAILY@0700 [facility] Last Admin: 08/24/17 06:06 Dose: 100 mcg Metronidazole (Metrogel 0.75% Gel -) 1 applic TP BID [facility] Last Admin: 08/24/17 11:26 Dose: 1 applic Mupirocin (Bactroban 2% Ointment -) 1 applic TP DAILY [facility] Last Admin: 08/24/17 11:26 Dose: 1 applic Neomycin/Polymyxin/Hydrocortisone (Cortisporin Otic Suspenstion -) 6 drop AU BID [facility] Stop: 08/30/17 13:29 Last Admin: 08/24/17 11:25 Dose: 6 drop Nystatin (Nystop Powder -) 1 applic TP DAILY [facility] Last Admin: 08/24/17 11:25 Dose: 1 applic Oxycodone HCl (Roxicodone -) 5 mg PO Q4H PRN PRN Reason: PAIN LEVEL 4 - 6 Oxycodone HCl (Roxicodone -) 10 mg PO Q4H PRN PRN Reason: PAIN LEVEL 7 - 10 Last Admin: 08/24/17 05:09 Dose: 10 mg Polyethylene Glycol (Miralax (For Daily Use) -) 17 gm PO DAILY [facility] Last Admin: 08/23/17 11:42 Dose: 17 gm Rivaroxaban (Xarelto -) 15 mg PO DAILY@1800 [facility] Last Admin: 08/23/17 17:52 Dose: 15 mg Silver Sulfadiazine (Silvadene -) 1 applic TP BID [facility] Last Admin: 08/24/17 11:26 Dose: 1 applic Tamsulosin HCl (Flomax -) 0.4 mg PO DAILY@0830 [facility] Last Admin: 08/24/17 08:24 Dose: 0.4 mg Gen: NAD on NIPPV Heart: RRR Lung: diminished at the bases, few rhonchi Abd: soft, obese, ascites Ext: + edema Laboratory Results - last 24 hr 08/23/17 08/23/17 08/24/17 17:06 20:55 05:13 Sodium Potassium Chloride Carbon Dioxide Anion Gap BUN Creatinine POC Glucometer 219 211 157 Random Glucose Calcium 08/24/17 08/24/17 06:30 11:01 Sodium 136 Potassium 4.7 Chloride 100 Carbon Dioxide 30 Anion Gap 6 L BUN 80 H Creatinine 2.2 H POC Glucometer 220 Random Glucose 150 H D Calcium 8.2 L A/P Acute on Chronic Diastolic Heart Failure Acute on Chronic Renal Failure Volume Overload Pulmonary HTN Atrial Fibrillation CAD COPD Morbid Obesity ASHLEY/OHS - continue lasix - monitor urine output, creatinine - daily weights - keep net negative - inhaled bronchodilators - no indication for systemic steroids at this time - O2 to keep SpO2 >90% - BiPAP to assist in work of breathing - rate controlled with atenolol - continue anticoagulation Problem List - Problems (1) Acute on chronic diastolic (congestive) heart failure Code(s): I50.33 - ACUTE ON CHRONIC DIASTOLIC (CONGESTIVE) HEART FAILURE (2) Acute on chronic renal failure Code(s): N17.9 - ACUTE KIDNEY FAILURE, UNSPECIFIED; N18.9 - CHRONIC KIDNEY DISEASE, UNSPECIFIED (3) Atrial fibrillation Code(s): I48.91 - UNSPECIFIED ATRIAL FIBRILLATION Qualifiers: Atrial fibrillation type: chronic Qualified Code(s): I48.2 - Chronic atrial fibrillation (4) CAD (coronary artery disease) Code(s): I25.10 - ATHSCL HEART DISEASE OF [place] CORONARY ARTERY W/O ANG PCTRS (5) COPD (chronic obstructive pulmonary disease) Code(s): J44.9 - CHRONIC OBSTRUCTIVE PULMONARY DISEASE, UNSPECIFIED (6) Diabetes Code(s): E11.9 - TYPE 2 DIABETES MELLITUS WITHOUT COMPLICATIONS (7) Obesities, morbid Code(s): E66.01 - MORBID (SEVERE) OBESITY DUE TO EXCESS CALORIES (8) Pulmonary HTN Code(s): I27.20 - PULMONARY HYPERTENSION, UNSPECIFIED (9) Sleep apnea Code(s): G47.30 - SLEEP APNEA, UNSPECIFIED (10) Volume overload Code(s): E87.70 - FLUID OVERLOAD, UNSPECIFIED A/P Acute on Chronic Diastolic Heart Failure Acute on Chronic Renal Failure Volume Overload Pulmonary HTN Atrial Fibrillation CAD COPD Morbid Obesity ASHLEY/OHS - Lasix 80mg BID - monitor urine output, creatinine - daily weights - keep net negative - inhaled bronchodilators - no indication for systemic steroids at this time - O2 to keep SpO2 >90% - BiPAP to assist in work of breathing - AC Dr Pond
[2017-08-24] MEDS ORDERED: INSULIN (NOVOLOG) ASPART 100 UNITS/ML 10ML VIAL ONE (15:00)
--- NOTE | 2017-08-24 16:17 | PN ---
Progress Note, Physician History of Present Illness: Pt seen and examined at bedside. He appears comfortable. He denies shortness of breath. - Current Medication List Current Medications: Active Medications Acetaminophen (Tylenol -) 650 mg PO Q4H PRN PRN Reason: PAIN LEVEL 1 - 3 Last Admin: 08/23/17 14:33 Dose: 650 mg Al Hydroxide/Mg Hydroxide (Mylanta Oral Suspension -) 30 ml PO Q6H PRN PRN Reason: DYSPEPSIA Albuterol Sulfate (Ventolin 0.083% Nebulizer Soln -) 1 amp NEB Q4H PRN PRN Reason: SHORT OF BREATH/WHEEZING Last Admin: 08/24/17 05:20 Dose: 1 amp Albuterol/Ipratropium (Duoneb -) 1 amp NEB RTID [facility] Last Admin: 08/24/17 14:04 Dose: 1 amp Aspirin (Asa -) 81 mg PO DAILY [facility] Last Admin: 08/24/17 11:25 Dose: 81 mg Atenolol (Tenormin -) 100 mg PO BID [facility] Last Admin: 08/24/17 11:27 Dose: Not Given Atorvastatin Calcium (Lipitor -) 80 mg PO HS [facility] Last Admin: 08/23/17 21:47 Dose: 80 mg Bisacodyl (Dulcolax -) 10 mg PO DAILY [facility] Last Admin: 08/24/17 11:24 Dose: 10 mg Bisacodyl (Dulcolax Suppository -) 10 mg RC PRN PRN PRN Reason: CONSTIPATION Collagenase (Santyl -) 1 applic TP DAILY [facility] Last Admin: 08/24/17 11:26 Dose: 1 applic Furosemide (Lasix Injection -) 80 mg IVPUSH BID@0600,1400 [facility] Last Admin: 08/24/17 15:09 Dose: 80 mg Insulin Aspart (Novolog Vial Sliding Scale -) 1 vial SQ [facility]; Protocol Last Admin: 08/24/17 12:09 Dose: 2 units Insulin Detemir (Levemir Vial) 10 units SQ [facility] Last Admin: 08/23/17 21:48 Dose: 10 units Levothyroxine Sodium (Synthroid -) 100 mcg PO DAILY@0700 [facility] Last Admin: 08/24/17 06:06 Dose: 100 mcg Metronidazole (Metrogel 0.75% Gel -) 1 applic TP BID [facility] Last Admin: 08/24/17 11:26 Dose: 1 applic Mupirocin (Bactroban 2% Ointment -) 1 applic TP DAILY [facility] Last Admin: 08/24/17 11:26 Dose: 1 applic Neomycin/Polymyxin/Hydrocortisone (Cortisporin Otic Suspenstion -) 6 drop AU BID [facility] Stop: 08/30/17 13:29 Last Admin: 08/24/17 11:25 Dose: 6 drop Nystatin (Nystop Powder -) 1 applic TP DAILY [facility] Last Admin: 08/24/17 11:25 Dose: 1 applic Oxycodone HCl (Roxicodone -) 5 mg PO Q4H PRN PRN Reason: PAIN LEVEL 4 - 6 Oxycodone HCl (Roxicodone -) 10 mg PO Q4H PRN PRN Reason: PAIN LEVEL 7 - 10 Last Admin: 08/24/17 15:17 Dose: 10 mg Polyethylene Glycol (Miralax (For Daily Use) -) 17 gm PO DAILY [facility] Last Admin: 08/23/17 11:42 Dose: 17 gm Rivaroxaban (Xarelto -) 15 mg PO DAILY@1800 [facility] Last Admin: 08/23/17 17:52 Dose: 15 mg Silver Sulfadiazine (Silvadene -) 1 applic TP BID [facility] Last Admin: 08/24/17 11:26 Dose: 1 applic Tamsulosin HCl (Flomax -) 0.4 mg PO DAILY@0830 [facility] Last Admin: 08/24/17 08:24 Dose: 0.4 mg - Objective Vital Signs: Vital Signs Temperature 98.7 F 08/24/17 10:00 Pulse Rate 76 08/24/17 10:00 Respiratory Rate 18 08/24/17 10:00 Blood Pressure 98/43 08/24/17 10:00 O2 Sat by Pulse Oximetry (%) 97 08/24/17 11:48 Constitutional: Yes: Calm Eyes: Yes: Conjunctiva Clear HENT: Yes: Atraumatic Neck: Yes: Supple Cardiovascular: Yes: S1, S2 Respiratory: Yes: CTA Bilaterally Gastrointestinal: Yes: Soft, Abdomen, Obese Genitourinary: Yes: WNL Edema: Yes Edema: LLE: 1+, RLE: 1+ Neurological: Yes: Oriented Psychiatric: Yes: Oriented Labs: CBC, BMP 08/23/17 06:30 08/24/17 06:30 INR, PTT INR 1.96 (0.82-1.09) H 08/08/17 05:34 Problem List - Problems (1) Acute renal insufficiency Code(s): N28.9 - DISORDER OF KIDNEY AND URETER, UNSPECIFIED (2) Atrial fibrillation Code(s): I48.91 - UNSPECIFIED ATRIAL FIBRILLATION Qualifiers: Atrial fibrillation type: chronic Qualified Code(s): I48.2 - Chronic atrial fibrillation (3) BPH (benign prostatic hyperplasia) Code(s): N40.0 - BENIGN PROSTATIC HYPERPLASIA WITHOUT LOWER URINRY TRACT SYMP (4) CHF (congestive heart failure) Code(s): I50.9 - HEART FAILURE, UNSPECIFIED Qualifiers: Heart failure type: unspecified Heart failure chronicity: acute on chronic Qualified Code(s): I50.9 - Heart failure, unspecified (5) Acute renal failure (ARF) Code(s): N17.9 - ACUTE KIDNEY FAILURE, UNSPECIFIED (6) CAD (coronary artery disease) Code(s): I25.10 - ATHSCL HEART DISEASE OF [place] CORONARY ARTERY W/O ANG PCTRS (7) CKD (chronic kidney disease) Code(s): N18.9 - CHRONIC KIDNEY DISEASE, UNSPECIFIED (8) Cellulitis Code(s): L03.90 - CELLULITIS, UNSPECIFIED Assessment/Plan Current Medications Generic Name Dose Route Start Last Admin Trade Name Freq PRN Reason Stop Dose Admin Acetaminophen 650 mg 08/21/17 14:31 08/23/17 14:33 Tylenol - PO 650 mg Q4H PRN Administration PAIN LEVEL 1 - 3 Al Hydroxide/Mg Hydroxide 30 ml 08/17/17 12:00 Mylanta Oral Suspension - PO Q6H PRN DYSPEPSIA Albuterol Sulfate 1 amp 08/17/17 10:47 08/24/17 05:20 Ventolin 0.083% Nebulizer Soln - NEB 1 amp Q4H PRN Administration SHORT OF BREATH/WHEEZING Albuterol/Ipratropium 1 amp 08/17/17 14:00 08/24/17 14:04 Duoneb - NEB 1 amp RTID [facility] Administration Aspirin 81 mg 08/11/17 10:00 08/24/17 11:25 Asa - PO 81 mg DAILY [facility] Administration Atenolol 100 mg 08/07/17 13:35 08/24/17 11:27 Tenormin - PO Not Given BID [facility] Atorvastatin Calcium 80 mg 08/07/17 22:00 08/23/17 21:47 Lipitor - PO 80 mg HS [facility] Administration Bisacodyl 10 mg 08/07/17 10:00 08/24/17 11:24 Dulcolax - PO 10 mg DAILY [facility] Administration Bisacodyl 10 mg 08/15/17 17:44 Dulcolax Suppository - RC PRN PRN CONSTIPATION Collagenase 1 applic 08/07/17 10:00 08/24/17 11:26 Santyl - TP 1 applic DAILY [facility] Administration Furosemide 80 mg 08/19/17 15:30 08/24/17 15:09 Lasix Injection - IVPUSH 80 mg BID@0600,1400 [facility] Administration Insulin Aspart 1 vial 08/07/17 07:00 08/24/17 12:09 Novolog Vial Sliding Scale - SQ 2 units ACHS [facility] Administration Protocol Insulin Detemir 10 units 08/19/17 22:00 08/23/17 21:48 Levemir Vial SQ 10 units HS [facility] Administration Levothyroxine Sodium 100 mcg 08/07/17 07:00 08/24/17 06:06 Synthroid - PO 100 mcg DAILY@0700 [facility] Administration Metronidazole 1 applic 08/07/17 10:00 08/24/17 11:26 Metrogel 0.75% Gel - TP 1 applic BID [facility] Administration Mupirocin 1 applic 08/07/17 10:00 08/24/17 11:26 Bactroban 2% Ointment - TP 1 applic DAILY [facility] Administration Neomycin/Polymyxin/Hydrocortisone 6 drop 08/23/17 13:30 08/24/17 11:25 Cortisporin Otic Suspenstion - AU 08/30/17 13:29 6 drop BID [facility] Administration Nystatin 1 applic 08/11/17 10:00 08/24/17 11:25 Nystop Powder - TP 1 applic DAILY [facility] Administration Oxycodone HCl 5 mg 08/21/17 14:32 Roxicodone - PO Q4H PRN PAIN LEVEL 4 - 6 Oxycodone HCl 10 mg 08/21/17 14:32 08/24/17 15:17 Roxicodone - PO 10 mg Q4H PRN Administration PAIN LEVEL 7 - 10 Polyethylene Glycol 17 gm 08/21/17 10:00 08/23/17 11:42 Miralax (For Daily Use) - PO 17 gm DAILY [facility] Administration Rivaroxaban 15 mg 08/16/17 18:00 08/23/17 17:52 Xarelto - PO 15 mg DAILY@1800 [facility] Administration Silver Sulfadiazine 1 applic 08/17/17 12:00 08/24/17 11:26 Silvadene - TP 1 applic BID [facility] Administration Tamsulosin HCl 0.4 mg 08/07/17 11:45 08/24/17 08:24 Flomax - PO 0.4 mg DAILY@0830 [facility] Administration Impression 1. CKD 2. KRUNAL 3. volume overload 4. morbid obesity 5. CAD 6. cellulitis 7. s/p fall 8. a-fib 9. DM 10. hypothyroidism 11. HLD 12. CHF 13. s/p leg fracture 14. hyperkalemia 15. constipation Plan - will transition to PO lasix - will need to stay on diuretics - volume status is improved - renal function is stable - avoid nephrotoxic agents - will hold off jasmyne as he has had hyperkalemia on multiple occasions - renal diet
[2017-08-24] MEDS: RIVAROXABAN 15 MG TABLET PO SCH (17:57)
--- NOTE | 2017-08-24 18:17 | PN ---
GI Progress Note Subjective: GI NOte: No longer has diarrhea but is moving bowels regularly. Main complaint is sacral itch. The area was observed as the nursing staff lifted the covering revealing maculopapular erythematous rash with appearance of fungal rash extending from the scotum and interbuttock areas which were cleansed, dried and powdered. - Objective Vital Signs: Vital Signs Temperature 98.7 F 08/24/17 10:00 Pulse Rate 76 08/24/17 10:00 Respiratory Rate 18 08/24/17 10:00 Blood Pressure 98/43 08/24/17 10:00 O2 Sat by Pulse Oximetry (%) 97 08/24/17 11:48 Laboratory Tests 08/23/17 08/24/17 06:30 06:30 Hgb 9.1 L BUN 80 H Creatinine 2.2 H Constitutional: Anxious Gastrointestinal Inspection: Yes: Other (see progress note exam findings) ...Auscultate: Yes: Normoactive Bowel Sounds ...Palpate: Yes: Soft, Other (nontender) Labs: CBC, BMP 08/23/17 06:30 08/24/17 06:30 INR, PTT INR 1.96 (0.82-1.09) H 08/08/17 05:34 Problem List - Problems (1) Constipation by delayed colonic transit Assessment/Plan: Constipation responding to Miralax once a day. Code(s): K59.01 - SLOW TRANSIT CONSTIPATION (2) Rectal mucosa prolapse Code(s): K62.3 - RECTAL PROLAPSE (3) Dermatophytosis of groin and perianal area Code(s): B35.6 - TINEA CRURIS
[2017-08-24] MEDS ORDERED: PT OWN MED DRAWER 7, Y5N ONE (20:35)
[2017-08-24] MEDS: INSULIN (LEVEMIR) 100 UNITS/ML UNITS SQ SCH (21:55)
[2017-08-24] MEDS: ATORVASTATIN CA 80 MG TABLET (FP) PO SCH (21:56)
[2017-08-25] MEDS: ALBUTEROL SO4 0.083% IH SOL 2.5 MG/3 ML VIAL.NEB. NEB PRN ×2 (01:29→06:00)
[2017-08-25] MEDS: INSULIN SLIDING SCALE (NOVOLOG) 1 VIAL SQ SCH ×4 (06:14→21:41)
[2017-08-25] MEDS: FUROSEMIDE 40 MG/4 ML INJECTABLE VIAL IVPUSH SCH (06:14)
[2017-08-25] MEDS: oxyCODONE HCL 5 MG TABLET PO PRN ×4 (06:18→21:40)
[2017-08-25] MEDS: LEVOTHYROXINE NA 100 MCG TABLET (FP) PO SCH (06:18)
[2017-08-25] MEDS: TAMSULOSIN HCL 0.4 MG CAP.ER.24H (FP) PO SCH (08:08)
[2017-08-25] MEDS: ALBUTEROL SO4 2.5/IPRATROPIUM 0.5 INH SOL 3 ML VIAL.NEB. NEB SCH ×3 (08:36→20:10)
[2017-08-25 09:32] LABS: ANION GAP 6 (8-16); BLOOD UREA NITROGEN 81 mg/dL (7-18); CHLORIDE 100 mmol/L (98-107); CO2 30 mmol/L (21-32); CREATININE 2.1 mg/dL (0.7-1.3); GLUCOSE,RANDOM 175 mg/dL (74-106); POTASSIUM 4.4 mmol/L (3.5-5.1); SODIUM 136 mmol/L (136-145)
[2017-08-25] MEDS ORDERED: PT OWN MED DRAWER 7, Y5N ONE ×3 (10:03→21:32)
[2017-08-25] MEDS: BISACODYL 5 MG TABLET.DR (FP) PO SCH (10:08)
[2017-08-25] MEDS: ASPIRIN 81 MG CHEWABLE TABLETS PO SCH (10:08)
[2017-08-25] MEDS: ATENOLOL 50 MG TABLET (FP) PO SCH ×2 (10:09→21:42)
[2017-08-25] MEDS: metroNIDAZOLE 0.75% TOPICAL GEL 45 GM TUBE TP SCH ×2 (10:17→21:42)
[2017-08-25] MEDS: NEOMYCIN/POLYMYXN/HC OTIC SUSPENSION 10 ML BOTTLE AU SCH ×2 (10:17→21:41)
[2017-08-25] MEDS: SILVER SULFADIAZINE 1% TOP CREAM 50 GM JAR TP SCH ×2 (10:18→21:42)
[2017-08-25] MEDS: NYSTATIN POWDER 100,000 UNITS/GM - 15 GM TOPICAL POWDER TP SCH (10:19)
[2017-08-25] MEDS: COLLAGENASE CLOSTRIDIUM HIST. 30 GRAMS TUBE TP SCH (10:19)
[2017-08-25] MEDS: MUPIROCIN 2% TOPICAL OINTMENT 22 GM TUBE TP SCH (10:20)
[2017-08-25] MEDS: POLYETHYLENE GLYCOL 3350 119 GM BTL PO SCH (10:20)
--- NOTE | 2017-08-25 13:12 | PN ---
Progress Note, Physician History of Present Illness: stable main issue sacral pain - Current Medication List Current Medications: Active Medications Acetaminophen (Tylenol -) 650 mg PO Q4H PRN PRN Reason: PAIN LEVEL 1 - 3 Last Admin: 08/23/17 14:33 Dose: 650 mg Al Hydroxide/Mg Hydroxide (Mylanta Oral Suspension -) 30 ml PO Q6H PRN PRN Reason: DYSPEPSIA Albuterol Sulfate (Ventolin 0.083% Nebulizer Soln -) 1 amp NEB Q4H PRN PRN Reason: SHORT OF BREATH/WHEEZING Last Admin: 08/25/17 06:00 Dose: 1 amp Albuterol/Ipratropium (Duoneb -) 1 amp NEB RTID [facility] Last Admin: 08/25/17 08:36 Dose: 1 amp Aspirin (Asa -) 81 mg PO DAILY [facility] Last Admin: 08/25/17 10:08 Dose: 81 mg Atenolol (Tenormin -) 100 mg PO BID [facility] Last Admin: 08/25/17 10:09 Dose: 100 mg Atorvastatin Calcium (Lipitor -) 80 mg PO [facility] Last Admin: 08/24/17 21:56 Dose: 80 mg Bisacodyl (Dulcolax -) 10 mg PO DAILY [facility] Last Admin: 08/25/17 10:08 Dose: 10 mg Bisacodyl (Dulcolax Suppository -) 10 mg RC PRN PRN PRN Reason: CONSTIPATION Collagenase (Santyl -) 1 applic TP DAILY [facility] Last Admin: 08/25/17 10:19 Dose: 1 applic Furosemide (Lasix Injection -) 80 mg IVPUSH BID@0600,1400 [facility] Last Admin: 08/25/17 06:14 Dose: 80 mg Insulin Aspart (Novolog Vial Sliding Scale -) 1 vial SQ [facility]; Protocol Last Admin: 08/25/17 12:16 Dose: Not Given Insulin Detemir (Levemir Vial) 10 units SQ [facility] Last Admin: 08/24/17 21:55 Dose: 10 units Levothyroxine Sodium (Synthroid -) 100 mcg PO DAILY@0700 [facility] Last Admin: 08/25/17 06:18 Dose: 100 mcg Metronidazole (Metrogel 0.75% Gel -) 1 applic TP BID [facility] Last Admin: 08/25/17 10:17 Dose: 1 applic Mupirocin (Bactroban 2% Ointment -) 1 applic TP DAILY [facility] Last Admin: 08/25/17 10:20 Dose: 1 applic Neomycin/Polymyxin/Hydrocortisone (Cortisporin Otic Suspenstion -) 6 drop AU BID [facility] Stop: 08/30/17 13:29 Last Admin: 08/25/17 10:17 Dose: 6 drop Nystatin (Nystop Powder -) 1 applic TP DAILY [facility] Last Admin: 08/25/17 10:19 Dose: 1 applic Oxycodone HCl (Roxicodone -) 5 mg PO Q4H PRN PRN Reason: PAIN LEVEL 4 - 6 Oxycodone HCl (Roxicodone -) 10 mg PO Q4H PRN PRN Reason: PAIN LEVEL 7 - 10 Last Admin: 08/25/17 10:10 Dose: 10 mg Polyethylene Glycol (Miralax (For Daily Use) -) 17 gm PO DAILY [facility] Last Admin: 08/25/17 10:20 Dose: Not Given Rivaroxaban (Xarelto -) 15 mg PO DAILY@1800 [facility] Last Admin: 08/24/17 17:57 Dose: 15 mg Silver Sulfadiazine (Silvadene -) 1 applic TP BID [facility] Last Admin: 08/25/17 10:18 Dose: 1 applic Tamsulosin HCl (Flomax -) 0.4 mg PO DAILY@0830 [facility] Last Admin: 08/25/17 08:08 Dose: 0.4 mg - Objective Vital Signs: Vital Signs Temperature 98.8 F 08/25/17 09:35 Pulse Rate 75 08/25/17 09:35 Respiratory Rate 18 08/25/17 09:35 Blood Pressure 131/69 08/25/17 09:35 O2 Sat by Pulse Oximetry (%) 97 08/25/17 08:35 Constitutional: Yes: No Distress, Calm, Obese Cardiovascular: Yes: Regular Rate and Rhythm Respiratory: Yes: Regular, CTA Bilaterally Gastrointestinal: Yes: Normal Bowel Sounds, Soft Musculoskeletal: Yes: WNL Extremities: Yes: Other Wound/Incision: Yes: Clean/Dry Neurological: Yes: Alert, Oriented Psychiatric: Yes: Alert, Oriented Labs: CBC, BMP 08/23/17 06:30 08/25/17 08:00 INR, PTT INR 1.96 (0.82-1.09) H 05/13/18 05:34 Assessment/Plan Problem List - Problems (1) Acute renal insufficiency Code(s): N28.9 - DISORDER OF KIDNEY AND URETER, UNSPECIFIED (2) Atrial fibrillation Code(s): I48.91 - UNSPECIFIED ATRIAL FIBRILLATION Qualifiers: Atrial fibrillation type: chronic Qualified Code(s): I48.2 - Chronic atrial fibrillation (3) BPH (benign prostatic hyperplasia) Code(s): N40.0 - BENIGN PROSTATIC HYPERPLASIA WITHOUT LOWER URINRY TRACT SYMP (4) CHF (congestive heart failure) Code(s): I50.9 - HEART FAILURE, UNSPECIFIED Qualifiers: Heart failure type: unspecified Heart failure chronicity: acute on chronic Qualified Code(s): I50.9 - Heart failure, unspecified (5) Acute renal failure (ARF) Code(s): N17.9 - ACUTE KIDNEY FAILURE, UNSPECIFIED (6) CAD (coronary artery disease) Code(s): I25.10 - ATHSCL HEART DISEASE OF [place] CORONARY ARTERY W/O ANG PCTRS (7) COPD (chronic obstructive pulmonary disease) Code(s): J44.9 - CHRONIC OBSTRUCTIVE PULMONARY DISEASE, UNSPECIFIED (8) Cellulitis of right leg Code(s): L03.115 - CELLULITIS OF RIGHT LOWER LIMB (9) Diabetes Code(s): E11.9 - TYPE 2 DIABETES MELLITUS WITHOUT COMPLICATIONS (10) Dyslipidemia Code(s): E78.5 - HYPERLIPIDEMIA, UNSPECIFIED (11) Obesities, morbid Code(s): E66.01 - MORBID (SEVERE) OBESITY DUE TO EXCESS CALORIES (12) Open left ankle fracture Code(s): S82.892B - OTH FRACTURE OF LEFT LOWER LEG, INIT FOR OPN FX TYPE I/2 Qualifiers: Encounter type: initial encounter (13) Sleep apnea Code(s): G47.30 - SLEEP APNEA, UNSPECIFIED (14) Venous (peripheral) insufficiency Code(s): I87.2 - VENOUS INSUFFICIENCY (CHRONIC) (PERIPHERAL) (15) Venous ulcer Code(s): I87.8 - OTHER SPECIFIED DISORDERS OF VEINS Assessment/Plan 61 y.o. male with PMH of DM, morbid obesity, CAD, CHF, AFIB, CKD, BPH, LLE compound fracture s/p external fixation with hardware in place, RLE cellulitis, LE infected ulcers receiving IV antibiotics in [place] presenting with urinary retention, KRUNAL and generalized rash and elevated Vancomycin levels Hx of RLE cellulitis/LLE infected ulcers - appears to have improved Rash resolving KRUNAL on CKD Urinary retention plan continue current mgmt nutrition rest continue physio change of positions
--- NOTE | 2017-08-25 13:19 | PN ---
Progress Note, Physician History of Present Illness: stable no complaints findings noted of the sacral region fungal rash - Current Medication List Current Medications: Active Medications Acetaminophen (Tylenol -) 650 mg PO Q4H PRN PRN Reason: PAIN LEVEL 1 - 3 Last Admin: 08/23/17 14:33 Dose: 650 mg Al Hydroxide/Mg Hydroxide (Mylanta Oral Suspension -) 30 ml PO Q6H PRN PRN Reason: DYSPEPSIA Albuterol Sulfate (Ventolin 0.083% Nebulizer Soln -) 1 amp NEB Q4H PRN PRN Reason: SHORT OF BREATH/WHEEZING Last Admin: 08/25/17 06:00 Dose: 1 amp Albuterol/Ipratropium (Duoneb -) 1 amp NEB RTID [facility] Last Admin: 08/25/17 08:36 Dose: 1 amp Aspirin (Asa -) 81 mg PO DAILY [facility] Last Admin: 08/25/17 10:08 Dose: 81 mg Atenolol (Tenormin -) 100 mg PO BID [facility] Last Admin: 08/25/17 10:09 Dose: 100 mg Atorvastatin Calcium (Lipitor -) 80 mg PO [facility] Last Admin: 08/24/17 21:56 Dose: 80 mg Bisacodyl (Dulcolax -) 10 mg PO DAILY [facility] Last Admin: 08/25/17 10:08 Dose: 10 mg Bisacodyl (Dulcolax Suppository -) 10 mg RC PRN PRN PRN Reason: CONSTIPATION Collagenase (Santyl -) 1 applic TP DAILY [facility] Last Admin: 08/25/17 10:19 Dose: 1 applic Furosemide (Lasix Injection -) 80 mg IVPUSH BID@0600,1400 [facility] Last Admin: 08/25/17 06:14 Dose: 80 mg Insulin Aspart (Novolog Vial Sliding Scale -) 1 vial SQ [facility]; Protocol Last Admin: 08/25/17 12:16 Dose: Not Given Insulin Detemir (Levemir Vial) 10 units SQ [facility] Last Admin: 08/24/17 21:55 Dose: 10 units Levothyroxine Sodium (Synthroid -) 100 mcg PO DAILY@0700 [facility] Last Admin: 08/25/17 06:18 Dose: 100 mcg Metronidazole (Metrogel 0.75% Gel -) 1 applic TP BID [facility] Last Admin: 08/25/17 10:17 Dose: 1 applic Mupirocin (Bactroban 2% Ointment -) 1 applic TP DAILY [facility] Last Admin: 08/25/17 10:20 Dose: 1 applic Neomycin/Polymyxin/Hydrocortisone (Cortisporin Otic Suspenstion -) 6 drop AU BID [facility] Stop: 08/30/17 13:29 Last Admin: 08/25/17 10:17 Dose: 6 drop Nystatin (Nystop Powder -) 1 applic TP DAILY [facility] Last Admin: 08/25/17 10:19 Dose: 1 applic Oxycodone HCl (Roxicodone -) 5 mg PO Q4H PRN PRN Reason: PAIN LEVEL 4 - 6 Oxycodone HCl (Roxicodone -) 10 mg PO Q4H PRN PRN Reason: PAIN LEVEL 7 - 10 Last Admin: 08/25/17 10:10 Dose: 10 mg Polyethylene Glycol (Miralax (For Daily Use) -) 17 gm PO DAILY [facility] Last Admin: 08/25/17 10:20 Dose: Not Given Rivaroxaban (Xarelto -) 15 mg PO DAILY@1800 [facility] Last Admin: 08/24/17 17:57 Dose: 15 mg Silver Sulfadiazine (Silvadene -) 1 applic TP BID [facility] Last Admin: 08/25/17 10:18 Dose: 1 applic Tamsulosin HCl (Flomax -) 0.4 mg PO DAILY@0830 [facility] Last Admin: 08/25/17 08:08 Dose: 0.4 mg - Objective Vital Signs: Vital Signs Temperature 98.8 F 08/25/17 09:35 Pulse Rate 75 08/25/17 09:35 Respiratory Rate 18 08/25/17 09:35 Blood Pressure 131/69 08/25/17 09:35 O2 Sat by Pulse Oximetry (%) 97 08/25/17 08:35 Constitutional: Yes: No Distress, Calm, Obese Cardiovascular: Yes: Regular Rate and Rhythm Respiratory: Yes: On BiPap, On Nasal O2 Gastrointestinal: Yes: Normal Bowel Sounds, Soft Musculoskeletal: Yes: WNL Extremities: Yes: Other Neurological: Yes: Alert, Oriented Psychiatric: Yes: Alert, Oriented Labs: CBC, BMP 08/23/17 06:30 08/25/17 08:00 INR, PTT INR 1.96 (0.82-1.09) H 05/13/18 05:34 Assessment/Plan Problem List - Problems (1) Acute renal insufficiency Code(s): N28.9 - DISORDER OF KIDNEY AND URETER, UNSPECIFIED (2) Atrial fibrillation Code(s): I48.91 - UNSPECIFIED ATRIAL FIBRILLATION Qualifiers: Atrial fibrillation type: chronic Qualified Code(s): I48.2 - Chronic atrial fibrillation (3) BPH (benign prostatic hyperplasia) Code(s): N40.0 - BENIGN PROSTATIC HYPERPLASIA WITHOUT LOWER URINRY TRACT SYMP (4) CHF (congestive heart failure) Code(s): I50.9 - HEART FAILURE, UNSPECIFIED Qualifiers: Heart failure type: unspecified Heart failure chronicity: acute on chronic Qualified Code(s): I50.9 - Heart failure, unspecified (5) Acute renal failure (ARF) Code(s): N17.9 - ACUTE KIDNEY FAILURE, UNSPECIFIED (6) CAD (coronary artery disease) Code(s): I25.10 - ATHSCL HEART DISEASE OF [place] CORONARY ARTERY W/O ANG PCTRS (7) COPD (chronic obstructive pulmonary disease) Code(s): J44.9 - CHRONIC OBSTRUCTIVE PULMONARY DISEASE, UNSPECIFIED (8) Cellulitis of right leg Code(s): L03.115 - CELLULITIS OF RIGHT LOWER LIMB (9) Diabetes Code(s): E11.9 - TYPE 2 DIABETES MELLITUS WITHOUT COMPLICATIONS (10) Dyslipidemia Code(s): E78.5 - HYPERLIPIDEMIA, UNSPECIFIED (11) Obesities, morbid Code(s): E66.01 - MORBID (SEVERE) OBESITY DUE TO EXCESS CALORIES (12) Open left ankle fracture Code(s): S82.892B - OTH FRACTURE OF LEFT LOWER LEG, INIT FOR OPN FX TYPE I/2 Qualifiers: Encounter type: initial encounter (13) Sleep apnea Code(s): G47.30 - SLEEP APNEA, UNSPECIFIED (14) Venous (peripheral) insufficiency Code(s): I87.2 - VENOUS INSUFFICIENCY (CHRONIC) (PERIPHERAL) (15) Venous ulcer Code(s): I87.8 - OTHER SPECIFIED DISORDERS OF VEINS Assessment/Plan 61 y.o. male with PMH of DM, morbid obesity, CAD, CHF, AFIB, CKD, BPH, LLE compound fracture s/p external fixation with hardware in place, RLE cellulitis, LE infected ulcers receiving IV antibiotics in [place] presenting with urinary retention, KRUNAL and generalized rash and elevated Vancomycin levels Hx of RLE cellulitis/LLE infected ulcers - appears to have improved Rash resolving KRUNAL on CKD Urinary retention plan continue current mgmt nutrition rest continue physio change of positions
--- NOTE | 2017-08-25 13:28 | PN ---
Progress Note, Physician History of Present Illness: Pt seen and examined at bedside. He is awake and alert. He appears comfortable. He is participating with rehab. - Current Medication List Current Medications: Active Medications Acetaminophen (Tylenol -) 650 mg PO Q4H PRN PRN Reason: PAIN LEVEL 1 - 3 Last Admin: 08/23/17 14:33 Dose: 650 mg Al Hydroxide/Mg Hydroxide (Mylanta Oral Suspension -) 30 ml PO Q6H PRN PRN Reason: DYSPEPSIA Albuterol Sulfate (Ventolin 0.083% Nebulizer Soln -) 1 amp NEB Q4H PRN PRN Reason: SHORT OF BREATH/WHEEZING Last Admin: 08/25/17 06:00 Dose: 1 amp Albuterol/Ipratropium (Duoneb -) 1 amp NEB RTID [facility] Last Admin: 08/25/17 08:36 Dose: 1 amp Aspirin (Asa -) 81 mg PO DAILY [facility] Last Admin: 08/25/17 10:08 Dose: 81 mg Atenolol (Tenormin -) 100 mg PO BID [facility] Last Admin: 08/25/17 10:09 Dose: 100 mg Atorvastatin Calcium (Lipitor -) 80 mg PO HS [facility] Last Admin: 08/24/17 21:56 Dose: 80 mg Bisacodyl (Dulcolax -) 10 mg PO DAILY [facility] Last Admin: 08/25/17 10:08 Dose: 10 mg Bisacodyl (Dulcolax Suppository -) 10 mg RC PRN PRN PRN Reason: CONSTIPATION Collagenase (Santyl -) 1 applic TP DAILY [facility] Last Admin: 08/25/17 10:19 Dose: 1 applic Furosemide (Lasix Injection -) 80 mg IVPUSH BID@0600,1400 [facility] Last Admin: 08/25/17 06:14 Dose: 80 mg Insulin Aspart (Novolog Vial Sliding Scale -) 1 vial SQ [facility]; Protocol Last Admin: 08/25/17 12:16 Dose: Not Given Insulin Detemir (Levemir Vial) 10 units SQ HS [facility] Last Admin: 08/24/17 21:55 Dose: 10 units Levothyroxine Sodium (Synthroid -) 100 mcg PO DAILY@0700 [facility] Last Admin: 08/25/17 06:18 Dose: 100 mcg Metronidazole (Metrogel 0.75% Gel -) 1 applic TP BID [facility] Last Admin: 08/25/17 10:17 Dose: 1 applic Mupirocin (Bactroban 2% Ointment -) 1 applic TP DAILY [facility] Last Admin: 08/25/17 10:20 Dose: 1 applic Neomycin/Polymyxin/Hydrocortisone (Cortisporin Otic Suspenstion -) 6 drop AU BID [facility] Stop: 08/30/17 13:29 Last Admin: 08/25/17 10:17 Dose: 6 drop Nystatin (Nystop Powder -) 1 applic TP DAILY [facility] Last Admin: 08/25/17 10:19 Dose: 1 applic Oxycodone HCl (Roxicodone -) 5 mg PO Q4H PRN PRN Reason: PAIN LEVEL 4 - 6 Oxycodone HCl (Roxicodone -) 10 mg PO Q4H PRN PRN Reason: PAIN LEVEL 7 - 10 Last Admin: 08/25/17 10:10 Dose: 10 mg Polyethylene Glycol (Miralax (For Daily Use) -) 17 gm PO DAILY [facility] Last Admin: 08/25/17 10:20 Dose: Not Given Rivaroxaban (Xarelto -) 15 mg PO DAILY@1800 [facility] Last Admin: 08/24/17 17:57 Dose: 15 mg Silver Sulfadiazine (Silvadene -) 1 applic TP BID [facility] Last Admin: 08/25/17 10:18 Dose: 1 applic Tamsulosin HCl (Flomax -) 0.4 mg PO DAILY@0830 [facility] Last Admin: 08/25/17 08:08 Dose: 0.4 mg - Objective Vital Signs: Vital Signs Temperature 98.8 F 08/25/17 09:35 Pulse Rate 75 08/25/17 09:35 Respiratory Rate 18 08/25/17 09:35 Blood Pressure 131/69 08/25/17 09:35 O2 Sat by Pulse Oximetry (%) 97 08/25/17 08:35 Constitutional: Yes: Calm Eyes: Yes: Conjunctiva Clear HENT: Yes: Atraumatic Neck: Yes: Supple Cardiovascular: Yes: S1, S2 Respiratory: Yes: CTA Bilaterally Gastrointestinal: Yes: Soft, Abdomen, Obese Genitourinary: Yes: WNL Musculoskeletal: Yes: Other (left leg external fixation) Extremities: Yes: Other (obese extremities) Edema: Yes Edema: LLE: 1+, RLE: 1+ Integumentary: Yes: Venous Stasis Changes Neurological: Yes: Oriented Psychiatric: Yes: Oriented Labs: CBC, BMP 08/23/17 06:30 08/25/17 08:00 INR, PTT INR 1.96 (0.82-1.09) H 08/08/17 05:34 Problem List - Problems (1) Acute renal insufficiency Code(s): N28.9 - DISORDER OF KIDNEY AND URETER, UNSPECIFIED (2) Atrial fibrillation Code(s): I48.91 - UNSPECIFIED ATRIAL FIBRILLATION Qualifiers: Atrial fibrillation type: chronic Qualified Code(s): I48.2 - Chronic atrial fibrillation (3) BPH (benign prostatic hyperplasia) Code(s): N40.0 - BENIGN PROSTATIC HYPERPLASIA WITHOUT LOWER URINRY TRACT SYMP (4) CHF (congestive heart failure) Code(s): I50.9 - HEART FAILURE, UNSPECIFIED Qualifiers: Heart failure type: unspecified Heart failure chronicity: acute on chronic Qualified Code(s): I50.9 - Heart failure, unspecified (5) Acute renal failure (ARF) Code(s): N17.9 - ACUTE KIDNEY FAILURE, UNSPECIFIED (6) CAD (coronary artery disease) Code(s): I25.10 - ATHSCL HEART DISEASE OF [place] CORONARY ARTERY W/O ANG PCTRS (7) CKD (chronic kidney disease) Code(s): N18.9 - CHRONIC KIDNEY DISEASE, UNSPECIFIED (8) Cellulitis Code(s): L03.90 - CELLULITIS, UNSPECIFIED Assessment/Plan Current Medications Generic Name Dose Route Start Last Admin Trade Name Freq PRN Reason Stop Dose Admin Acetaminophen 650 mg 08/21/17 14:31 08/23/17 14:33 Tylenol - PO 650 mg Q4H PRN Administration PAIN LEVEL 1 - 3 Al Hydroxide/Mg Hydroxide 30 ml 08/17/17 12:00 Mylanta Oral Suspension - PO Q6H PRN DYSPEPSIA Albuterol Sulfate 1 amp 08/17/17 10:47 08/25/17 06:00 Ventolin 0.083% Nebulizer Soln - NEB 1 amp Q4H PRN Administration SHORT OF BREATH/WHEEZING Albuterol/Ipratropium 1 amp 08/17/17 14:00 08/25/17 08:36 Duoneb - NEB 1 amp RTID [facility] Administration Aspirin 81 mg 08/11/17 10:00 08/25/17 10:08 Asa - PO 81 mg DAILY [facility] Administration Atenolol 100 mg 08/07/17 13:35 08/25/17 10:09 Tenormin - PO 100 mg BID [facility] Administration Atorvastatin Calcium 80 mg 08/07/17 22:00 08/24/17 21:56 Lipitor - PO 80 mg HS [facility] Administration Bisacodyl 10 mg 08/07/17 10:00 08/25/17 10:08 Dulcolax - PO 10 mg DAILY [facility] Administration Bisacodyl 10 mg 08/15/17 17:44 Dulcolax Suppository - RC PRN PRN CONSTIPATION Collagenase 1 applic 08/07/17 10:00 08/25/17 10:19 Santyl - TP 1 applic DAILY [facility] Administration Furosemide 80 mg 08/19/17 15:30 08/25/17 06:14 Lasix Injection - IVPUSH 80 mg BID@0600,1400 [facility] Administration Insulin Aspart 1 vial 08/07/17 07:00 08/25/17 12:16 Novolog Vial Sliding Scale - SQ Not Given ACHS [facility] Protocol Insulin Detemir 10 units 08/19/17 22:00 08/24/17 21:55 Levemir Vial SQ 10 units HS [facility] Administration Levothyroxine Sodium 100 mcg 08/07/17 07:00 08/25/17 06:18 Synthroid - PO 100 mcg DAILY@0700 [facility] Administration Metronidazole 1 applic 08/07/17 10:00 08/25/17 10:17 Metrogel 0.75% Gel - TP 1 applic BID [facility] Administration Mupirocin 1 applic 08/07/17 10:00 08/25/17 10:20 Bactroban 2% Ointment - TP 1 applic DAILY [facility] Administration Neomycin/Polymyxin/Hydrocortisone 6 drop 08/23/17 13:30 08/25/17 10:17 Cortisporin Otic Suspenstion - AU 08/30/17 13:29 6 drop BID [facility] Administration Nystatin 1 applic 08/11/17 10:00 08/25/17 10:19 Nystop Powder - TP 1 applic DAILY [facility] Administration Oxycodone HCl 5 mg 08/21/17 14:32 Roxicodone - PO Q4H PRN PAIN LEVEL 4 - 6 Oxycodone HCl 10 mg 08/21/17 14:32 08/25/17 10:10 Roxicodone - PO 10 mg Q4H PRN Administration PAIN LEVEL 7 - 10 Polyethylene Glycol 17 gm 08/21/17 10:00 08/25/17 10:20 Miralax (For Daily Use) - PO Not Given DAILY [facility] Rivaroxaban 15 mg 08/16/17 18:00 08/24/17 17:57 Xarelto - PO 15 mg DAILY@1800 [facility] Administration Silver Sulfadiazine 1 applic 08/17/17 12:00 08/25/17 10:18 Silvadene - TP 1 applic BID [facility] Administration Tamsulosin HCl 0.4 mg 08/07/17 11:45 08/25/17 08:08 Flomax - PO 0.4 mg DAILY@0830 [facility] Administration Impression 1. CKD 2. KRUNAL 3. volume overload 4. morbid obesity 5. CAD 6. cellulitis 7. s/p fall 8. a-fib 9. DM 10. hypothyroidism 11. HLD 12. CHF 13. s/p leg fracture 14. hyperkalemia 15. constipation Plan - can switch to PO lasix - monitor renal function - volume status is improved - renal function is stable - avoid nephrotoxic agents - renal diet
--- NOTE | 2017-08-25 13:57 | PN ---
Progress Note, Physician History of Present Illness: pulmonary alert on bipap,comfortable,-resp distress. - Current Medication List Current Medications: Active Medications Acetaminophen (Tylenol -) 650 mg PO Q4H PRN PRN Reason: PAIN LEVEL 1 - 3 Last Admin: 08/23/17 14:33 Dose: 650 mg Al Hydroxide/Mg Hydroxide (Mylanta Oral Suspension -) 30 ml PO Q6H PRN PRN Reason: DYSPEPSIA Albuterol Sulfate (Ventolin 0.083% Nebulizer Soln -) 1 amp NEB Q4H PRN PRN Reason: SHORT OF BREATH/WHEEZING Last Admin: 08/25/17 06:00 Dose: 1 amp Albuterol/Ipratropium (Duoneb -) 1 amp NEB RTID [facility] Last Admin: 08/25/17 08:36 Dose: 1 amp Aspirin (Asa -) 81 mg PO DAILY [facility] Last Admin: 08/25/17 10:08 Dose: 81 mg Atenolol (Tenormin -) 100 mg PO BID [facility] Last Admin: 08/25/17 10:09 Dose: 100 mg Atorvastatin Calcium (Lipitor -) 80 mg PO [facility] Last Admin: 08/24/17 21:56 Dose: 80 mg Bisacodyl (Dulcolax -) 10 mg PO DAILY [facility] Last Admin: 08/25/17 10:08 Dose: 10 mg Bisacodyl (Dulcolax Suppository -) 10 mg RC PRN PRN PRN Reason: CONSTIPATION Collagenase (Santyl -) 1 applic TP DAILY [facility] Last Admin: 08/25/17 10:19 Dose: 1 applic Furosemide (Lasix -) 80 mg PO BID@0600,1400 [facility] Insulin Aspart (Novolog Vial Sliding Scale -) 1 vial SQ [facility]; Protocol Last Admin: 08/25/17 12:16 Dose: Not Given Insulin Detemir (Levemir Vial) 10 units SQ [facility] Last Admin: 08/24/17 21:55 Dose: 10 units Levothyroxine Sodium (Synthroid -) 100 mcg PO DAILY@0700 [facility] Last Admin: 08/25/17 06:18 Dose: 100 mcg Metronidazole (Metrogel 0.75% Gel -) 1 applic TP BID [facility] Last Admin: 08/25/17 10:17 Dose: 1 applic Mupirocin (Bactroban 2% Ointment -) 1 applic TP DAILY [facility] Last Admin: 08/25/17 10:20 Dose: 1 applic Neomycin/Polymyxin/Hydrocortisone (Cortisporin Otic Suspenstion -) 6 drop AU BID [facility] Stop: 08/30/17 13:29 Last Admin: 08/25/17 10:17 Dose: 6 drop Nystatin (Nystop Powder -) 1 applic TP DAILY [facility] Last Admin: 08/25/17 10:19 Dose: 1 applic Oxycodone HCl (Roxicodone -) 5 mg PO Q4H PRN PRN Reason: PAIN LEVEL 4 - 6 Oxycodone HCl (Roxicodone -) 10 mg PO Q4H PRN PRN Reason: PAIN LEVEL 7 - 10 Last Admin: 08/25/17 10:10 Dose: 10 mg Polyethylene Glycol (Miralax (For Daily Use) -) 17 gm PO DAILY [facility] Last Admin: 08/25/17 10:20 Dose: Not Given Rivaroxaban (Xarelto -) 15 mg PO DAILY@1800 [facility] Last Admin: 08/24/17 17:57 Dose: 15 mg Silver Sulfadiazine (Silvadene -) 1 applic TP BID [facility] Last Admin: 08/25/17 10:18 Dose: 1 applic Tamsulosin HCl (Flomax -) 0.4 mg PO DAILY@0830 [facility] Last Admin: 08/25/17 08:08 Dose: 0.4 mg - Objective Vital Signs: Vital Signs Temperature 98.8 F 08/25/17 09:35 Pulse Rate 75 08/25/17 09:35 Respiratory Rate 18 08/25/17 09:35 Blood Pressure 131/69 08/25/17 09:35 O2 Sat by Pulse Oximetry (%) 90 L 08/25/17 12:53 Constitutional: Yes: Calm, Obese Eyes: Yes: WNL HENT: Yes: WNL Neck: Yes: WNL Cardiovascular: Yes: Pulse Irregular, S1, S2 Respiratory: Yes: Diminished Gastrointestinal: Yes: Normal Bowel Sounds, Soft Extremities: Yes: WNL Edema: Yes Labs: CBC, BMP 08/25/17 08:00 INR, PTT Assessment/Plan Problem List - Problems (1) Acute on chronic diastolic (congestive) heart failure Code(s): I50.33 - ACUTE ON CHRONIC DIASTOLIC (CONGESTIVE) HEART FAILURE (2) Acute on chronic renal failure Code(s): N17.9 - ACUTE KIDNEY FAILURE, UNSPECIFIED; N18.9 - CHRONIC KIDNEY DISEASE, UNSPECIFIED (3) Atrial fibrillation Code(s): I48.91 - UNSPECIFIED ATRIAL FIBRILLATION Qualifiers: Atrial fibrillation type: chronic Qualified Code(s): I48.2 - Chronic atrial fibrillation (4) CAD (coronary artery disease) Code(s): I25.10 - ATHSCL HEART DISEASE OF [place] CORONARY ARTERY W/O ANG PCTRS (5) COPD (chronic obstructive pulmonary disease) Code(s): J44.9 - CHRONIC OBSTRUCTIVE PULMONARY DISEASE, UNSPECIFIED (6) Diabetes Code(s): E11.9 - TYPE 2 DIABETES MELLITUS WITHOUT COMPLICATIONS (7) Obesities, morbid Code(s): E66.01 - MORBID (SEVERE) OBESITY DUE TO EXCESS CALORIES (8) Pulmonary HTN Code(s): I27.20 - PULMONARY HYPERTENSION, UNSPECIFIED (9) Sleep apnea Code(s): G47.30 - SLEEP APNEA, UNSPECIFIED (10) Volume overload Code(s): E87.70 - FLUID OVERLOAD, UNSPECIFIED Assessment/Plan Acute on Chronic Diastolic Heart Failure Acute on Chronic Renal Failure Volume Overload Pulmonary HTN Atrial Fibrillation CAD COPD Morbid Obesity ASHLEY/OHS - lasix - monitor urine output, creatinine - inhaled bronchodilators - O2 to keep SpO2 >90% - BiPAP to assist in work of breathing - rate controlled with atenolol - anticoagulation DR MACHADO
[2017-08-25] MEDS: FUROSEMIDE 40 MG TABLET (FP) PO SCH (14:22)
--- NOTE | 2017-08-25 15:47 | PN ---
Progress Note, Physician Chief Complaint: Nephrology , ID, Pulmonary notes appreciated. Lasix was changed to PO by nephrology. Good BM yesterday. PICC is out. Episode of nose bleed -resolved. Appears comfortable in bed. History of Present Illness: Recent hospitalization for acute cellulitis RLE after fall [employer]. The patient sustained open left ankle fracture while at [facility] and had subsequent external fixation by Dr. Thayer Morbid obesity. ASHLEY. Bilateral PE. Pulmonary HTN-CTEPH , ASHLEY AND CLASS 2 PAH. CHF-mostly diastolic. ASHD. STEMI in 2016 with MICHAEL x2 placed at [place]. Chronic A.Fib-on a/c-Xarelto/ASA now. Gout. Gouty arthritis CKD 3 DM type 2. Chronic DVT Right thigh, Stasis ulcers, edema. Chronic wound right Ankle/dobbs-RX at [facility]-groing multiple organisms. - Current Medication List Current Medications: Active Medications Acetaminophen (Tylenol -) 650 mg PO Q4H PRN PRN Reason: PAIN LEVEL 1 - 3 Last Admin: 08/23/17 14:33 Dose: 650 mg Al Hydroxide/Mg Hydroxide (Mylanta Oral Suspension -) 30 ml PO Q6H PRN PRN Reason: DYSPEPSIA Albuterol Sulfate (Ventolin 0.083% Nebulizer Soln -) 1 amp NEB Q4H PRN PRN Reason: SHORT OF BREATH/WHEEZING Last Admin: 08/25/17 06:00 Dose: 1 amp Albuterol/Ipratropium (Duoneb -) 1 amp NEB RTID [facility] Last Admin: 08/25/17 13:55 Dose: 1 amp Aspirin (Asa -) 81 mg PO DAILY [facility] Last Admin: 08/25/17 10:08 Dose: 81 mg Atenolol (Tenormin -) 100 mg PO BID [facility] Last Admin: 08/25/17 10:09 Dose: 100 mg Atorvastatin Calcium (Lipitor -) 80 mg PO HS [facility] Last Admin: 08/24/17 21:56 Dose: 80 mg Bisacodyl (Dulcolax -) 10 mg PO DAILY [facility] Last Admin: 08/25/17 10:08 Dose: 10 mg Bisacodyl (Dulcolax Suppository -) 10 mg RC PRN PRN PRN Reason: CONSTIPATION Collagenase (Santyl -) 1 applic TP DAILY [facility] Last Admin: 08/25/17 10:19 Dose: 1 applic Furosemide (Lasix -) 80 mg PO BID@0600,1400 [facility] Last Admin: 08/25/17 14:22 Dose: 80 mg Insulin Aspart (Novolog Vial Sliding Scale -) 1 vial SQ [facility]; Protocol Last Admin: 08/25/17 12:16 Dose: Not Given Insulin Detemir (Levemir Vial) 10 units SQ HS [facility] Last Admin: 08/24/17 21:55 Dose: 10 units Levothyroxine Sodium (Synthroid -) 100 mcg PO DAILY@0700 [facility] Last Admin: 08/25/17 06:18 Dose: 100 mcg Metronidazole (Metrogel 0.75% Gel -) 1 applic TP BID [facility] Last Admin: 08/25/17 10:17 Dose: 1 applic Mupirocin (Bactroban 2% Ointment -) 1 applic TP DAILY [facility] Last Admin: 08/25/17 10:20 Dose: 1 applic Neomycin/Polymyxin/Hydrocortisone (Cortisporin Otic Suspenstion -) 6 drop AU BID [facility] Stop: 08/30/17 13:29 Last Admin: 08/25/17 10:17 Dose: 6 drop Nystatin (Nystop Powder -) 1 applic TP DAILY [facility] Last Admin: 08/25/17 10:19 Dose: 1 applic Oxycodone HCl (Roxicodone -) 5 mg PO Q4H PRN PRN Reason: PAIN LEVEL 4 - 6 Oxycodone HCl (Roxicodone -) 10 mg PO Q4H PRN PRN Reason: PAIN LEVEL 7 - 10 Last Admin: 08/25/17 15:29 Dose: 10 mg Polyethylene Glycol (Miralax (For Daily Use) -) 17 gm PO DAILY [facility] Last Admin: 08/25/17 10:20 Dose: Not Given Rivaroxaban (Xarelto -) 15 mg PO DAILY@1800 [facility] Last Admin: 08/24/17 17:57 Dose: 15 mg Silver Sulfadiazine (Silvadene -) 1 applic TP BID [facility] Last Admin: 08/25/17 10:18 Dose: 1 applic Tamsulosin HCl (Flomax -) 0.4 mg PO DAILY@0830 [facility] Last Admin: 08/25/17 08:08 Dose: 0.4 mg - Objective Vital Signs: Vital Signs Temperature 98.8 F 08/25/17 09:35 Pulse Rate 75 08/25/17 09:35 Respiratory Rate 18 08/25/17 09:35 Blood Pressure 131/69 08/25/17 09:35 O2 Sat by Pulse Oximetry (%) 90 L 08/25/17 12:53 Constitutional: Yes: Calm, Mild Distress Eyes: Yes: Conjunctiva Clear, EOM Intact HENT: Yes: Atraumatic, Normocephalic. No: Drooling, Epistaxis Neck: Yes: Supple, Trachea Midline. No: Decreased ROM, Lymphadenopathy Cardiovascular: Yes: Pulse Irregular, S1, S2. No: JVD, Gallop Respiratory: Yes: Regular, Diminished (B/B), On BiPap Gastrointestinal: Yes: Normal Bowel Sounds, Soft, Abdomen, Obese. No: Distention, Hematemesis, Palpable Mass, Tenderness, Tenderness, Rebound, Vomiting ...Rectal Exam: Yes: Deferred Genitourinary: No: Anuria, Bladder Distention Breast(s): Yes: WNL Musculoskeletal: Yes: Back Pain Extremities: Yes: Other (Right dobbs wound is healing Left ankle in external fixation.) Edema: Yes Edema: LLE: Trace, RLE: Trace Peripheral Pulses WNL: No Integumentary: Yes: Rash (posterior low back, buttocks seen with the nurse- drying) ...Motor Strength: WNL Psychiatric: Yes: Alert, Oriented. No: Agitated, Suicidal Ideation Labs: CBC, BMP 08/23/17 06:30 08/25/17 08:00 INR, PTT INR 1.96 (0.82-1.09) H 08/08/17 05:34 Laboratory Results - last 24 hr 08/21/17 08/24/17 08/24/17 07:00 17:51 21:51 Sodium Potassium Chloride Carbon Dioxide Anion Gap BUN Creatinine POC Glucometer 170 183 Random Glucose Calcium 8.4 L PTH Intact 43 PTH Intact Intraop 0 m 08/25/17 08/25/17 08/25/17 06:10 08:00 12:14 Sodium 136 Potassium 4.4 Chloride 100 Carbon Dioxide 30 Anion Gap 6 L BUN 81 H Creatinine 2.1 H POC Glucometer 162 189 Random Glucose 175 H Calcium 8.0 L PTH Intact PTH Intact Intraop 0 m Current Active Problems Problem Status Onset Acute on chronic diastolic (congestive) heart failure Acute Acute on chronic renal failure Acute Acute renal insufficiency Acute Atrial fibrillation Acute BPH (benign prostatic hyperplasia) Acute CHF (congestive heart failure) Acute Constipation by delayed colonic transit Acute Dermatophytosis of groin and perianal area Acute Diabetes 1.5, managed as type 1 Acute Diastolic CHF Acute Gynecomastia Acute Rectal mucosa prolapse Acute Severe pain Acute Suspected deep tissue injury Acute Suspected deep tissue injury of unknown depth of lower back Acute Unspecified open wound, right ankle, initial encounter Acute Urinary (tract) obstruction Acute Volume overload Acute Plan Continue wound and skin care. BUN/CR ARE STABLE AT THIS LEVEL-NO SIGNIFICANT VOLUME OVERLOAD. PAIN MANAGEMENT. PAIN MANAGEMENT FOLLOW BGM, LYTES, BUN/CREAT Problem List - Problems (1) Acute renal insufficiency Code(s): N28.9 - DISORDER OF KIDNEY AND URETER, UNSPECIFIED (2) Atrial fibrillation Code(s): I48.91 - UNSPECIFIED ATRIAL FIBRILLATION Qualifiers: Atrial fibrillation type: chronic Qualified Code(s): I48.2 - Chronic atrial fibrillation (3) BPH (benign prostatic hyperplasia) Code(s): N40.0 - BENIGN PROSTATIC HYPERPLASIA WITHOUT LOWER URINRY TRACT SYMP (4) CHF (congestive heart failure) Code(s): I50.9 - HEART FAILURE, UNSPECIFIED Qualifiers: Heart failure type: unspecified Heart failure chronicity: acute on chronic Qualified Code(s): I50.9 - Heart failure, unspecified (5) Accident due to mechanical fall without injury Code(s): W19.XXXA - UNSPECIFIED FALL, INITIAL ENCOUNTER Qualifiers: Encounter type: subsequent encounter Qualified Code(s): W19.XXXD - Unspecified fall, subsequent encounter (6) Severe pain Code(s): R52 - PAIN, UNSPECIFIED (7) Urinary (tract) obstruction Code(s): N13.9 - OBSTRUCTIVE AND REFLUX UROPATHY, UNSPECIFIED (8) Unspecified open wound, right ankle, initial encounter Code(s): S91.001A - UNSPECIFIED OPEN WOUND, RIGHT ANKLE, INITIAL ENCOUNTER (9) Constipation by delayed colonic transit Code(s): K59.01 - SLOW TRANSIT CONSTIPATION (10) Diabetes 1.5, managed as type 1 Code(s): E10.9 - TYPE 1 DIABETES MELLITUS WITHOUT COMPLICATIONS
[2017-08-25] MEDS: RIVAROXABAN 15 MG TABLET PO SCH (18:01)
[2017-08-25] MEDS ORDERED: INSULIN (NOVOLOG) ASPART 100 UNITS/ML 10ML VIAL ONE (18:38)
[2017-08-25] MEDS: INSULIN (LEVEMIR) 100 UNITS/ML UNITS SQ SCH (21:41)
[2017-08-25] MEDS: ATORVASTATIN CA 80 MG TABLET (FP) PO SCH (21:41)
[2017-08-26 05:53] VITALS: TEMP 97.8
[2017-08-26] MEDS: FUROSEMIDE 40 MG TABLET (FP) PO SCH ×2 (06:18→13:59)
[2017-08-26] MEDS: LEVOTHYROXINE NA 100 MCG TABLET (FP) PO SCH (06:18)
[2017-08-26] MEDS: oxyCODONE HCL 5 MG TABLET PO PRN (06:22)
[2017-08-26] MEDS: INSULIN SLIDING SCALE (NOVOLOG) 1 VIAL SQ SCH ×2 (06:23→11:55)
[2017-08-26] MEDS: ALBUTEROL SO4 2.5/IPRATROPIUM 0.5 INH SOL 3 ML VIAL.NEB. NEB SCH (07:30)
--- NOTE | 2017-08-26 08:14 | PN ---
Progress Note, Physician Chief Complaint: Comfortable in bed. No new complaints. History of Present Illness: Recent hospitalization for acute cellulitis RLE after fall [employer]. The patient sustained open left ankle fracture while at [facility] and had subsequent external fixation by Dr. Thayer Morbid obesity. ASHLEY. Bilateral PE. Pulmonary HTN-CTEPH , ASHLEY AND CLASS 2 PAH. CHF-mostly diastolic. ASHD. STEMI in 2016 with MICHAEL x2 placed at [place]. Chronic A.Fib-on a/c-Xarelto/ASA now. Gout. Gouty arthritis CKD 3 DM type 2. Chronic DVT Right thigh, Stasis ulcers, edema. Chronic wound right Ankle/dobbs-RX at [facility]-groing multiple organisms. - Current Medication List Current Medications: Active Medications Acetaminophen (Tylenol -) 650 mg PO Q4H PRN PRN Reason: PAIN LEVEL 1 - 3 Last Admin: 08/23/17 14:33 Dose: 650 mg Al Hydroxide/Mg Hydroxide (Mylanta Oral Suspension -) 30 ml PO Q6H PRN PRN Reason: DYSPEPSIA Albuterol Sulfate (Ventolin 0.083% Nebulizer Soln -) 1 amp NEB Q4H PRN PRN Reason: SHORT OF BREATH/WHEEZING Last Admin: 08/25/17 06:00 Dose: 1 amp Albuterol/Ipratropium (Duoneb -) 1 amp NEB RTID [facility] Last Admin: 08/25/17 20:10 Dose: 1 amp Aspirin (Asa -) 81 mg PO DAILY [facility] Last Admin: 08/25/17 10:08 Dose: 81 mg Atenolol (Tenormin -) 100 mg PO BID [facility] Last Admin: 08/25/17 21:42 Dose: Not Given Atorvastatin Calcium (Lipitor -) 80 mg PO HS [facility] Last Admin: 08/25/17 21:41 Dose: 80 mg Bisacodyl (Dulcolax -) 10 mg PO DAILY [facility] Last Admin: 08/25/17 10:08 Dose: 10 mg Bisacodyl (Dulcolax Suppository -) 10 mg RC PRN PRN PRN Reason: CONSTIPATION Collagenase (Santyl -) 1 applic TP DAILY [facility] Last Admin: 08/25/17 10:19 Dose: 1 applic Furosemide (Lasix -) 80 mg PO BID@0600,1400 [facility] Last Admin: 08/26/17 06:18 Dose: 80 mg Insulin Aspart (Novolog Vial Sliding Scale -) 1 vial SQ ACHS [facility]; Protocol Last Admin: 08/26/17 06:23 Dose: 2 units Insulin Detemir (Levemir Vial) 10 units SQ BID [facility] Levothyroxine Sodium (Synthroid -) 100 mcg PO DAILY@0700 [facility] Last Admin: 08/26/17 06:18 Dose: 100 mcg Metronidazole (Metrogel 0.75% Gel -) 1 applic TP BID [facility] Last Admin: 08/25/17 21:42 Dose: 1 applic Mupirocin (Bactroban 2% Ointment -) 1 applic TP DAILY [facility] Last Admin: 08/25/17 10:20 Dose: 1 applic Neomycin/Polymyxin/Hydrocortisone (Cortisporin Otic Suspenstion -) 6 drop AU BID [facility] Stop: 08/30/17 13:29 Last Admin: 08/25/17 21:41 Dose: 6 drop Nystatin (Nystop Powder -) 1 applic TP DAILY [facility] Last Admin: 08/25/17 10:19 Dose: 1 applic Oxycodone HCl (Roxicodone -) 5 mg PO Q4H PRN PRN Reason: PAIN LEVEL 4 - 6 Oxycodone HCl (Roxicodone -) 10 mg PO Q4H PRN PRN Reason: PAIN LEVEL 7 - 10 Last Admin: 08/26/17 06:22 Dose: 10 mg Polyethylene Glycol (Miralax (For Daily Use) -) 17 gm PO DAILY [facility] Last Admin: 08/25/17 10:20 Dose: Not Given Rivaroxaban (Xarelto -) 15 mg PO DAILY@1800 [facility] Last Admin: 08/25/17 18:01 Dose: 15 mg Silver Sulfadiazine (Silvadene -) 1 applic TP BID [facility] Last Admin: 08/25/17 21:42 Dose: 1 applic Tamsulosin HCl (Flomax -) 0.4 mg PO DAILY@0830 [facility] Last Admin: 08/25/17 08:08 Dose: 0.4 mg - Objective Vital Signs: Vital Signs Temperature 97.8 F 08/26/17 05:47 Pulse Rate 79 08/26/17 05:47 Respiratory Rate 20 08/26/17 05:47 Blood Pressure 101/64 08/26/17 05:47 O2 Sat by Pulse Oximetry (%) 95 08/25/17 20:26 Constitutional: Yes: No Distress, Calm Eyes: Yes: Conjunctiva Clear, EOM Intact. No: Cataracts HENT: Yes: Atraumatic, Normocephalic, Nasal Congestion, Other (pressure injury over bridge of the nose). No: Drooling, Epistaxis Neck: Yes: Supple, Thyromegaly. No: Decreased ROM, Lymphadenopathy, Rigid Cardiovascular: Yes: Pulse Irregular, S1, S2. No: Bradycardia, Tachycardia, JVD Respiratory: Yes: Diminished (B/B), On BiPap Gastrointestinal: Yes: Normal Bowel Sounds, Soft, Abdomen, Obese. No: Ascites, Distention, Hypoactive Bowel Sounds, Palpable Mass, Tenderness, Rebound, Vomiting ...Rectal Exam: Yes: Deferred Genitourinary: No: Anuria, Bladder Distention Breast(s): Yes: WNL Musculoskeletal: Yes: Back Pain. No: Joint Stiffness, Joint Swelling Extremities: No: Cold, Cyanosis Edema: Yes Edema: LLE: 1+, RLE: 1+ Peripheral Pulses WNL: No Integumentary: Yes: Other (Left ankle-external fixation-wound is dry. Right anterior dobbs wound dry, clean) Psychiatric: Yes: Alert, Oriented. No: Agitated Labs: CBC, BMP 08/23/17 06:30 08/25/17 08:00 INR, PTT INR 1.96 (0.82-1.09) H 08/08/17 05:34 Problem List - Problems (1) Acute renal insufficiency Assessment/Plan: Potassium improved. Avoid UVALDO and ARB. Follow renal fx. dR FREED CONSULT APPRECIATED. Code(s): N28.9 - DISORDER OF KIDNEY AND URETER, UNSPECIFIED (2) Atrial fibrillation Assessment/Plan: Continue Heparin IV, VR control. Code(s): I48.91 - UNSPECIFIED ATRIAL FIBRILLATION Qualifiers: Atrial fibrillation type: chronic Qualified Code(s): I48.2 - Chronic atrial fibrillation (3) BPH (benign prostatic hyperplasia) Assessment/Plan: Continue Boyle, Flomax as per Dr Ivy Code(s): N40.0 - BENIGN PROSTATIC HYPERPLASIA WITHOUT LOWER URINRY TRACT SYMP (4) CHF (congestive heart failure) Assessment/Plan: PO Lasix , Follow edema, UA output Code(s): I50.9 - HEART FAILURE, UNSPECIFIED Qualifiers: Heart failure type: unspecified Heart failure chronicity: acute on chronic Qualified Code(s): I50.9 - Heart failure, unspecified (5) Accident due to mechanical fall without injury Assessment/Plan: ortho f/u PT Follow x-rays Code(s): W19.XXXA - UNSPECIFIED FALL, INITIAL ENCOUNTER Qualifiers: Encounter type: subsequent encounter Qualified Code(s): W19.XXXD - Unspecified fall, subsequent encounter (6) Severe pain Assessment/Plan: Receiving Oxycodone every 4 hrs Code(s): R52 - PAIN, UNSPECIFIED (7) Unspecified open wound, right ankle, initial encounter Assessment/Plan: Continue wound care Code(s): S91.001A - UNSPECIFIED OPEN WOUND, RIGHT ANKLE, INITIAL ENCOUNTER (8) Constipation by delayed colonic transit Assessment/Plan: Continue laxatives, follow BM regularity. Code(s): K59.01 - SLOW TRANSIT CONSTIPATION (9) Diabetes 1.5, managed as type 1 Assessment/Plan: Follow BGM, restart 10 units Levemir BID Code(s): E10.9 - TYPE 1 DIABETES MELLITUS WITHOUT COMPLICATIONS
[2017-08-26] MEDS: TAMSULOSIN HCL 0.4 MG CAP.ER.24H (FP) PO SCH (08:48)
[2017-08-26] MEDS ORDERED: INSULIN (LEVEMIR) 100 UNITS/ML UNITS SQ SCH (09:15)
--- NOTE | 2017-08-26 10:01 | DS ---
Physical Examination Vital Signs: Vital Signs Temperature 97.8 F 08/26/17 09:50 Pulse Rate 95 H 08/26/17 09:50 Respiratory Rate 20 08/26/17 09:50 Blood Pressure 101/66 08/26/17 09:50 O2 Sat by Pulse Oximetry (%) 95 08/25/17 20:26 Constitutional: Yes: No Distress, Calm, Obese Eyes: Yes: Conjunctiva Clear, EOM Intact HENT: Yes: Atraumatic, Normocephalic Neck: Yes: Supple, Trachea Midline Cardiovascular: Yes: Pulse Irregular Respiratory: Yes: Regular, CTA Bilaterally Gastrointestinal: Yes: Normal Bowel Sounds, Soft, Abdomen, Obese. No: Tenderness, Epigastrium, Tenderness, Rebound, Vomiting ...Rectal Exam: Yes: Deferred Renal/: Yes: Urethral Discharge. No: Anuria Edema: LLE: 1+, RLE: 1+ Peripheral Pulses WNL: No Integumentary: Yes: Other (left ext fixation , right dobbs wound dry) ...Motor Strength: WNL Psychiatric: Yes: WNL Labs: CBC, BMP 08/23/17 06:30 08/25/17 08:00 Discharge Summary Reason For Visit: ACUTE RENAL INSUFFICIENCY Current Active Problems Acute on chronic diastolic (congestive) heart failure (Acute) Acute on chronic renal failure (Acute) Acute renal insufficiency (Acute) Atrial fibrillation (Acute) BPH (benign prostatic hyperplasia) (Acute) CHF (congestive heart failure) (Acute) Constipation by delayed colonic transit (Acute) Dermatophytosis of groin and perianal area (Acute) Diabetes 1.5, managed as type 1 (Acute) Diastolic CHF (Acute) Gynecomastia (Acute) Rectal mucosa prolapse (Acute) Severe pain (Acute) Suspected deep tissue injury (Acute) Suspected deep tissue injury of unknown depth of lower back (Acute) Unspecified open wound, right ankle, initial encounter (Acute) Volume overload (Acute) Condition: Fair - Instructions Referrals: Basil Harrington MD [Primary Care Provider] - - Home Medications Comprehensive Discharge Medication List: Ambulatory Orders Albuterol 2.5/Ipratropium 0.5 [Duoneb -] 1 neb NEB Q4H PRN 08/06/17 Atenolol [Tenormin] 100 mg PO BID 08/06/17 Atorvastatin Calcium 80 mg PO HS 08/06/17 Bisacodyl 10 mg PO DAILY 08/06/17 Clotrimazole 15 gm TP DAILY 08/06/17 Collagenase Clostridium Hist. [Santyl -] 1 applic TP DAILY 08/06/17 Diphenhydramine HCl [Benadryl Capsule -] 50 mg PO DAILY 08/06/17 Febuxostat [Uloric -] 40 mg PO DAILY 08/06/17 Furosemide [Lasix] 80 mg PO BID 08/06/17 Glipizide 10 mg PO BID 08/06/17 Insulin (Novolog) [Novolog -] 0 units SQ AC 08/06/17 Insulin Glargine,Hum.rec.anlog [Lantus] 80 unit SQ HS 08/06/17 Ipratropium/Albuterol Sulfate [Iprat-Albut 0.5-3(2.5) mg/3 ml] 3 ml IH Q6H 08/06 Levothyroxine [Synthroid -] 100 mcg PO DAILY 08/06/17 Linaclotide [Linzess] 290 mcg PO DAILY 08/06/17 Liraglutide [Victoza -] 1.8 mg SQ DAILY 08/06/17 Mupirocin Ointment [Bactroban 2% Ointment -] 1 applic TP DAILY 08/06/17 Oxycodone HCl 10 mg PO Q4H PRN 08/06/17 Oxycodone HCl/Acetaminophen [Percocet 5-325 mg Tablet] 2 tab PO HS 08/06/17 Polyethylene Glycol 3350 [Miralax 119 gm Btl -] 17 gm PO BID 08/06/17 Pramoxine HCl/Calamine [Calamine Medicated Lotion] 177 ml TP DAILY 08/06/17 Rivaroxaban [Xarelto -] 15 mg PO DAILY 08/06/17 metroNIDAZOLE 0.75% GEL [Metrogel 0.75% Gel -] 1 applic TP BID 08/06/17
--- NOTE | 2017-08-26 10:22 | PN ---
Progress Note (short form) - Note Progress Note: Lying flat in NAD on NIPPV, 40% FiO2. No acute events documented overnight. Intake & Output 08/23/17 08/24/17 08/25/17 08/26/17 23:59 23:59 23:59 23:59 Intake Total 400 1130 1045 500 Output Total 1250 1650 1250 Balance 400 -120 -605 -750 Weight 473 lb 465 lb 9 oz 468 lb 7 oz 471 lb 3 oz Last Vital Signs Temp Pulse Resp BP Pulse Ox 97.8 F 95 H 20 101/66 95 08/26/17 09:50 08/26/17 09:50 08/26/17 09:50 08/26/17 09:50 08/25/17 20:26 Active Medications Acetaminophen (Tylenol -) 650 mg PO Q4H PRN PRN Reason: PAIN LEVEL 1 - 3 Last Admin: 08/23/17 14:33 Dose: 650 mg Al Hydroxide/Mg Hydroxide (Mylanta Oral Suspension -) 30 ml PO Q6H PRN PRN Reason: DYSPEPSIA Albuterol Sulfate (Ventolin 0.083% Nebulizer Soln -) 1 amp NEB Q4H PRN PRN Reason: SHORT OF BREATH/WHEEZING Last Admin: 08/25/17 06:00 Dose: 1 amp Albuterol/Ipratropium (Duoneb -) 1 amp NEB RTID [facility] Last Admin: 08/26/17 07:30 Dose: 1 amp Aspirin (Asa -) 81 mg PO DAILY [facility] Last Admin: 08/25/17 10:08 Dose: 81 mg Atenolol (Tenormin -) 100 mg PO BID [facility] Last Admin: 08/25/17 21:42 Dose: Not Given Atorvastatin Calcium (Lipitor -) 80 mg PO HS [facility] Last Admin: 08/25/17 21:41 Dose: 80 mg Bisacodyl (Dulcolax -) 10 mg PO DAILY [facility] Last Admin: 08/25/17 10:08 Dose: 10 mg Bisacodyl (Dulcolax Suppository -) 10 mg RC PRN PRN PRN Reason: CONSTIPATION Collagenase (Santyl -) 1 applic TP DAILY [facility] Last Admin: 08/25/17 10:19 Dose: 1 applic Furosemide (Lasix -) 80 mg PO BID@0600,1400 [facility] Last Admin: 08/26/17 06:18 Dose: 80 mg Insulin Aspart (Novolog Vial Sliding Scale -) 1 vial SQ ACHS [facility]; Protocol Last Admin: 08/26/17 06:23 Dose: 2 units Insulin Detemir (Levemir Vial) 10 units SQ BID@0700,2200 [facility] Levothyroxine Sodium (Synthroid -) 100 mcg PO DAILY@0700 [facility] Last Admin: 08/26/17 06:18 Dose: 100 mcg Metronidazole (Metrogel 0.75% Gel -) 1 applic TP BID [facility] Last Admin: 08/25/17 21:42 Dose: 1 applic Mupirocin (Bactroban 2% Ointment -) 1 applic TP DAILY [facility] Last Admin: 08/25/17 10:20 Dose: 1 applic Neomycin/Polymyxin/Hydrocortisone (Cortisporin Otic Suspenstion -) 6 drop AU BID [facility] Stop: 08/30/17 13:29 Last Admin: 08/25/17 21:41 Dose: 6 drop Nystatin (Nystop Powder -) 1 applic TP DAILY [facility] Last Admin: 08/25/17 10:19 Dose: 1 applic Oxycodone HCl (Roxicodone -) 5 mg PO Q4H PRN PRN Reason: PAIN LEVEL 4 - 6 Oxycodone HCl (Roxicodone -) 10 mg PO Q4H PRN PRN Reason: PAIN LEVEL 7 - 10 Last Admin: 08/26/17 06:22 Dose: 10 mg Polyethylene Glycol (Miralax (For Daily Use) -) 17 gm PO DAILY [facility] Last Admin: 08/25/17 10:20 Dose: Not Given Rivaroxaban (Xarelto -) 15 mg PO DAILY@1800 [facility] Last Admin: 08/25/17 18:01 Dose: 15 mg Silver Sulfadiazine (Silvadene -) 1 applic TP BID [facility] Last Admin: 08/25/17 21:42 Dose: 1 applic Tamsulosin HCl (Flomax -) 0.4 mg PO DAILY@0830 [facility] Last Admin: 08/25/17 08:08 Dose: 0.4 mg Gen: NAD on NIPPV Heart: RRR Lung: diminished at the bases, few rhonchi Abd: soft, obese, ascites Ext: + edema Laboratory Results - last 24 hr 05/26/18 05/30/18 05/30/18 07:00 12:14 17:18 POC Glucometer 189 212 Calcium 8.4 L PTH Intact 43 PTH Intact Intraop 0 m 08/25/17 08/26/17 21:35 06:20 POC Glucometer 209 201 Calcium PTH Intact PTH Intact Intraop 0 m Problem List - Problems (1) Acute on chronic diastolic (congestive) heart failure Code(s): I50.33 - ACUTE ON CHRONIC DIASTOLIC (CONGESTIVE) HEART FAILURE (2) Acute on chronic renal failure Code(s): N17.9 - ACUTE KIDNEY FAILURE, UNSPECIFIED; N18.9 - CHRONIC KIDNEY DISEASE, UNSPECIFIED (3) Atrial fibrillation Code(s): I48.91 - UNSPECIFIED ATRIAL FIBRILLATION Qualifiers: Atrial fibrillation type: chronic Qualified Code(s): I48.2 - Chronic atrial fibrillation (4) CAD (coronary artery disease) Code(s): I25.10 - ATHSCL HEART DISEASE OF [place] CORONARY ARTERY W/O ANG PCTRS (5) COPD (chronic obstructive pulmonary disease) Code(s): J44.9 - CHRONIC OBSTRUCTIVE PULMONARY DISEASE, UNSPECIFIED (6) Diabetes Code(s): E11.9 - TYPE 2 DIABETES MELLITUS WITHOUT COMPLICATIONS (7) Obesities, morbid Code(s): E66.01 - MORBID (SEVERE) OBESITY DUE TO EXCESS CALORIES (8) Pulmonary HTN Code(s): I27.20 - PULMONARY HYPERTENSION, UNSPECIFIED (9) Sleep apnea Code(s): G47.30 - SLEEP APNEA, UNSPECIFIED (10) Volume overload Code(s): E87.70 - FLUID OVERLOAD, UNSPECIFIED A/P Acute on Chronic Diastolic Heart Failure Acute on Chronic Renal Failure Volume Overload Pulmonary HTN Atrial Fibrillation CAD COPD Morbid Obesity ASHLEY/OHS - Lasix - inhaled bronchodilators - no indication for systemic steroids at this time - O2 to keep SpO2 88% to 92% - BiPAP to assist in work of breathing - AC Dr Pond
[2017-08-26] MEDS: BISACODYL 5 MG TABLET.DR (FP) PO SCH (10:48)
[2017-08-26] MEDS: ASPIRIN 81 MG CHEWABLE TABLETS PO SCH (10:49)
[2017-08-26] MEDS: metroNIDAZOLE 0.75% TOPICAL GEL 45 GM TUBE TP SCH (10:53)
[2017-08-26] MEDS: NEOMYCIN/POLYMYXN/HC OTIC SUSPENSION 10 ML BOTTLE AU SCH (10:53)
[2017-08-26] MEDS: SILVER SULFADIAZINE 1% TOP CREAM 50 GM JAR TP SCH (10:53)
[2017-08-26] MEDS: COLLAGENASE CLOSTRIDIUM HIST. 30 GRAMS TUBE TP SCH (10:53)
[2017-08-26] MEDS: POLYETHYLENE GLYCOL 3350 119 GM BTL PO SCH (10:54)
[2017-08-26] MEDS: ATENOLOL 50 MG TABLET (FP) PO SCH (10:54)
[2017-08-26] MEDS: NYSTATIN POWDER 100,000 UNITS/GM - 15 GM TOPICAL POWDER TP SCH (10:54)
[2017-08-26] MEDS: MUPIROCIN 2% TOPICAL OINTMENT 22 GM TUBE TP SCH (10:57)
[2017-08-26 14:41] VITALS: BP 108/58; PULSE 85
--- NOTE | 2017-08-26 15:28 | PN ---
Progress Note, Physician History of Present Illness: stable no events noted overnight on bipap says he is doing good - Current Medication List Current Medications: Active Medications Acetaminophen (Tylenol -) 650 mg PO Q4H PRN PRN Reason: PAIN LEVEL 1 - 3 Last Admin: 08/23/17 14:33 Dose: 650 mg Al Hydroxide/Mg Hydroxide (Mylanta Oral Suspension -) 30 ml PO Q6H PRN PRN Reason: DYSPEPSIA Aspirin (Asa -) 81 mg PO DAILY [facility] Last Admin: 08/26/17 10:49 Dose: 81 mg Atenolol (Tenormin -) 100 mg PO BID [facility] Last Admin: 08/26/17 10:54 Dose: Not Given Atorvastatin Calcium (Lipitor -) 80 mg PO HS [facility] Last Admin: 08/25/17 21:41 Dose: 80 mg Bisacodyl (Dulcolax -) 10 mg PO DAILY [facility] Last Admin: 08/26/17 10:48 Dose: 10 mg Bisacodyl (Dulcolax Suppository -) 10 mg RC PRN PRN PRN Reason: CONSTIPATION Collagenase (Santyl -) 1 applic TP DAILY [facility] Last Admin: 08/26/17 10:53 Dose: 1 applic Furosemide (Lasix -) 80 mg PO BID@0600,1400 [facility] Last Admin: 08/26/17 13:59 Dose: 80 mg Insulin Aspart (Novolog Vial Sliding Scale -) 1 vial SQ [facility]; Protocol Last Admin: 08/26/17 11:55 Dose: Not Given Insulin Detemir (Levemir Vial) 10 units SQ BID@0700,2200 [facility] Last Admin: 08/26/17 10:56 Dose: Not Given Levothyroxine Sodium (Synthroid -) 100 mcg PO DAILY@0700 [facility] Last Admin: 08/26/17 06:18 Dose: 100 mcg Metronidazole (Metrogel 0.75% Gel -) 1 applic TP BID [facility] Last Admin: 08/26/17 10:53 Dose: 1 applic Mupirocin (Bactroban 2% Ointment -) 1 applic TP DAILY [facility] Last Admin: 08/26/17 10:57 Dose: 1 applic Neomycin/Polymyxin/Hydrocortisone (Cortisporin Otic Suspenstion -) 6 drop AU BID [facility] Stop: 08/30/17 13:29 Last Admin: 08/26/17 10:53 Dose: 6 drop Nystatin (Nystop Powder -) 1 applic TP DAILY [facility] Last Admin: 08/26/17 10:54 Dose: 1 applic Oxycodone HCl (Roxicodone -) 5 mg PO Q4H PRN PRN Reason: PAIN LEVEL 4 - 6 Oxycodone HCl (Roxicodone -) 10 mg PO Q4H PRN PRN Reason: PAIN LEVEL 7 - 10 Last Admin: 08/26/17 06:22 Dose: 10 mg Polyethylene Glycol (Miralax (For Daily Use) -) 17 gm PO DAILY [facility] Last Admin: 08/26/17 10:54 Dose: Not Given Rivaroxaban (Xarelto -) 15 mg PO DAILY@1800 [facility] Last Admin: 08/25/17 18:01 Dose: 15 mg Silver Sulfadiazine (Silvadene -) 1 applic TP BID [facility] Last Admin: 08/26/17 10:53 Dose: 1 applic Tamsulosin HCl (Flomax -) 0.4 mg PO DAILY@0830 [facility] Last Admin: 08/26/17 08:48 Dose: 0.4 mg - Objective Vital Signs: Vital Signs Temperature 97.8 F 08/26/17 14:40 Pulse Rate 85 08/26/17 14:40 Respiratory Rate 20 08/26/17 09:50 Blood Pressure 108/58 08/26/17 14:40 O2 Sat by Pulse Oximetry (%) 100 08/26/17 09:00 Constitutional: Yes: No Distress, Calm, Obese Cardiovascular: Yes: Regular Rate and Rhythm Respiratory: Yes: Regular, On BiPap, On Nasal O2 Gastrointestinal: Yes: Normal Bowel Sounds, Soft Musculoskeletal: Yes: Other Extremities: Yes: Other Edema: LLE: Trace, RLE: Trace Wound/Incision: Yes: Clean/Dry Neurological: Yes: Alert, Oriented Psychiatric: Yes: Alert, Oriented Labs: CBC, BMP 08/23/17 06:30 08/25/17 08:00 INR, PTT INR 1.96 (0.82-1.09) H 08/08/17 05:34 Assessment/Plan Problem List - Problems (1) Acute renal insufficiency Code(s): N28.9 - DISORDER OF KIDNEY AND URETER, UNSPECIFIED (2) Atrial fibrillation Code(s): I48.91 - UNSPECIFIED ATRIAL FIBRILLATION Qualifiers: Atrial fibrillation type: chronic Qualified Code(s): I48.2 - Chronic atrial fibrillation (3) BPH (benign prostatic hyperplasia) Code(s): N40.0 - BENIGN PROSTATIC HYPERPLASIA WITHOUT LOWER URINRY TRACT SYMP (4) CHF (congestive heart failure) Code(s): I50.9 - HEART FAILURE, UNSPECIFIED Qualifiers: Heart failure type: unspecified Heart failure chronicity: acute on chronic Qualified Code(s): I50.9 - Heart failure, unspecified (5) Acute renal failure (ARF) Code(s): N17.9 - ACUTE KIDNEY FAILURE, UNSPECIFIED (6) CAD (coronary artery disease) Code(s): I25.10 - ATHSCL HEART DISEASE OF [place] CORONARY ARTERY W/O ANG PCTRS (7) COPD (chronic obstructive pulmonary disease) Code(s): J44.9 - CHRONIC OBSTRUCTIVE PULMONARY DISEASE, UNSPECIFIED (8) Cellulitis of right leg Code(s): L03.115 - CELLULITIS OF RIGHT LOWER LIMB (9) Diabetes Code(s): E11.9 - TYPE 2 DIABETES MELLITUS WITHOUT COMPLICATIONS (10) Dyslipidemia Code(s): E78.5 - HYPERLIPIDEMIA, UNSPECIFIED (11) Obesities, morbid Code(s): E66.01 - MORBID (SEVERE) OBESITY DUE TO EXCESS CALORIES (12) Open left ankle fracture Code(s): S82.892B - OTH FRACTURE OF LEFT LOWER LEG, INIT FOR OPN FX TYPE I/2 Qualifiers: Encounter type: initial encounter (13) Sleep apnea Code(s): G47.30 - SLEEP APNEA, UNSPECIFIED (14) Venous (peripheral) insufficiency Code(s): I87.2 - VENOUS INSUFFICIENCY (CHRONIC) (PERIPHERAL) (15) Venous ulcer Code(s): I87.8 - OTHER SPECIFIED DISORDERS OF VEINS Assessment/Plan 61 y.o. male with PMH of DM, morbid obesity, CAD, CHF, AFIB, CKD, BPH, LLE compound fracture s/p external fixation with hardware in place, RLE cellulitis, LE infected ulcers receiving IV antibiotics in [place] presenting with urinary retention, KRUNAL and generalized rash and elevated Vancomycin levels Hx of RLE cellulitis/LLE infected ulcers - appears to have improved Rash resolving KRUNAL on CKD Urinary retention plan continue current mgmt nutrition rest continue physio change of positions bipap support
--- NOTE | 2017-08-26 15:34 | PN ---
Progress Note, Physician History of Present Illness: Pt seen and examined at bedside. He is awake and alert. He appears comfortable. - Current Medication List Current Medications: Active Medications Acetaminophen (Tylenol -) 650 mg PO Q4H PRN PRN Reason: PAIN LEVEL 1 - 3 Last Admin: 08/23/17 14:33 Dose: 650 mg Al Hydroxide/Mg Hydroxide (Mylanta Oral Suspension -) 30 ml PO Q6H PRN PRN Reason: DYSPEPSIA Aspirin (Asa -) 81 mg PO DAILY [facility] Last Admin: 08/26/17 10:49 Dose: 81 mg Atenolol (Tenormin -) 100 mg PO BID [facility] Last Admin: 08/26/17 10:54 Dose: Not Given Atorvastatin Calcium (Lipitor -) 80 mg PO HS [facility] Last Admin: 08/25/17 21:41 Dose: 80 mg Bisacodyl (Dulcolax -) 10 mg PO DAILY [facility] Last Admin: 08/26/17 10:48 Dose: 10 mg Bisacodyl (Dulcolax Suppository -) 10 mg RC PRN PRN PRN Reason: CONSTIPATION Collagenase (Santyl -) 1 applic TP DAILY [facility] Last Admin: 08/26/17 10:53 Dose: 1 applic Furosemide (Lasix -) 80 mg PO BID@0600,1400 [facility] Last Admin: 08/26/17 13:59 Dose: 80 mg Insulin Aspart (Novolog Vial Sliding Scale -) 1 vial SQ [facility]; Protocol Last Admin: 08/26/17 11:55 Dose: Not Given Insulin Detemir (Levemir Vial) 10 units SQ BID@0700,2200 [facility] Last Admin: 08/26/17 10:56 Dose: Not Given Levothyroxine Sodium (Synthroid -) 100 mcg PO DAILY@0700 [facility] Last Admin: 08/26/17 06:18 Dose: 100 mcg Metronidazole (Metrogel 0.75% Gel -) 1 applic TP BID [facility] Last Admin: 08/26/17 10:53 Dose: 1 applic Mupirocin (Bactroban 2% Ointment -) 1 applic TP DAILY [facility] Last Admin: 08/26/17 10:57 Dose: 1 applic Neomycin/Polymyxin/Hydrocortisone (Cortisporin Otic Suspenstion -) 6 drop AU BID [facility] Stop: 08/30/17 13:29 Last Admin: 08/26/17 10:53 Dose: 6 drop Nystatin (Nystop Powder -) 1 applic TP DAILY [facility] Last Admin: 08/26/17 10:54 Dose: 1 applic Oxycodone HCl (Roxicodone -) 5 mg PO Q4H PRN PRN Reason: PAIN LEVEL 4 - 6 Oxycodone HCl (Roxicodone -) 10 mg PO Q4H PRN PRN Reason: PAIN LEVEL 7 - 10 Last Admin: 08/26/17 06:22 Dose: 10 mg Polyethylene Glycol (Miralax (For Daily Use) -) 17 gm PO DAILY [facility] Last Admin: 08/26/17 10:54 Dose: Not Given Rivaroxaban (Xarelto -) 15 mg PO DAILY@1800 [facility] Last Admin: 08/25/17 18:01 Dose: 15 mg Silver Sulfadiazine (Silvadene -) 1 applic TP BID [facility] Last Admin: 08/26/17 10:53 Dose: 1 applic Tamsulosin HCl (Flomax -) 0.4 mg PO DAILY@0830 [facility] Last Admin: 08/26/17 08:48 Dose: 0.4 mg - Objective Vital Signs: Vital Signs Temperature 97.8 F 08/26/17 14:40 Pulse Rate 85 08/26/17 14:40 Respiratory Rate 20 08/26/17 09:50 Blood Pressure 108/58 08/26/17 14:40 O2 Sat by Pulse Oximetry (%) 100 08/26/17 09:00 Constitutional: Yes: Calm Eyes: Yes: Conjunctiva Clear HENT: Yes: Atraumatic Neck: Yes: Supple Cardiovascular: Yes: S1, S2 Respiratory: Yes: CTA Bilaterally Gastrointestinal: Yes: Soft, Abdomen, Obese Musculoskeletal: Yes: Other (external fixation of fracture) Edema: Yes Edema: LLE: 1+, RLE: 1+ Integumentary: Yes: Venous Stasis Changes Neurological: Yes: Oriented Psychiatric: Yes: Oriented Labs: CBC, BMP 08/23/17 06:30 08/25/17 08:00 INR, PTT INR 1.96 (0.82-1.09) H 08/08/17 05:34 Problem List - Problems (1) Acute renal insufficiency Code(s): N28.9 - DISORDER OF KIDNEY AND URETER, UNSPECIFIED (2) Atrial fibrillation Code(s): I48.91 - UNSPECIFIED ATRIAL FIBRILLATION Qualifiers: Atrial fibrillation type: chronic Qualified Code(s): I48.2 - Chronic atrial fibrillation (3) BPH (benign prostatic hyperplasia) Code(s): N40.0 - BENIGN PROSTATIC HYPERPLASIA WITHOUT LOWER URINRY TRACT SYMP (4) CHF (congestive heart failure) Code(s): I50.9 - HEART FAILURE, UNSPECIFIED Qualifiers: Heart failure type: unspecified Heart failure chronicity: acute on chronic Qualified Code(s): I50.9 - Heart failure, unspecified (5) Acute renal failure (ARF) Code(s): N17.9 - ACUTE KIDNEY FAILURE, UNSPECIFIED (6) CAD (coronary artery disease) Code(s): I25.10 - ATHSCL HEART DISEASE OF [place] CORONARY ARTERY W/O ANG PCTRS (7) CKD (chronic kidney disease) Code(s): N18.9 - CHRONIC KIDNEY DISEASE, UNSPECIFIED (8) Cellulitis Code(s): L03.90 - CELLULITIS, UNSPECIFIED Assessment/Plan Current Medications Generic Name Dose Route Start Last Admin Trade Name Freq PRN Reason Stop Dose Admin Acetaminophen 650 mg 08/21/17 14:31 08/23/17 14:33 Tylenol - PO 650 mg Q4H PRN Administration PAIN LEVEL 1 - 3 Al Hydroxide/Mg Hydroxide 30 ml 08/17/17 12:00 Mylanta Oral Suspension - PO Q6H PRN DYSPEPSIA Aspirin 81 mg 08/11/17 10:00 08/26/17 10:49 Asa - PO 81 mg DAILY [facility] Administration Atenolol 100 mg 08/07/17 13:35 08/26/17 10:54 Tenormin - PO Not Given BID [facility] Atorvastatin Calcium 80 mg 08/07/17 22:00 08/25/17 21:41 Lipitor - PO 80 mg HS [facility] Administration Bisacodyl 10 mg 08/07/17 10:00 08/26/17 10:48 Dulcolax - PO 10 mg DAILY [facility] Administration Bisacodyl 10 mg 08/15/17 17:44 Dulcolax Suppository - RC PRN PRN CONSTIPATION Collagenase 1 applic 08/07/17 10:00 08/26/17 10:53 Santyl - TP 1 applic DAILY [facility] Administration Furosemide 80 mg 08/25/17 14:00 08/26/17 13:59 Lasix - PO 80 mg BID@0600,1400 [facility] Administration Insulin Aspart 1 vial 08/07/17 07:00 08/26/17 11:55 Novolog Vial Sliding Scale - SQ Not Given [facility] Protocol Insulin Detemir 10 units 08/26/17 09:15 08/26/17 10:56 Levemir Vial SQ Not Given BID@0700,2200 [facility] Levothyroxine Sodium 100 mcg 08/07/17 07:00 08/26/17 06:18 Synthroid - PO 100 mcg DAILY@0700 [facility] Administration Metronidazole 1 applic 08/07/17 10:00 08/26/17 10:53 Metrogel 0.75% Gel - TP 1 applic BID [facility] Administration Mupirocin 1 applic 08/07/17 10:00 08/26/17 10:57 Bactroban 2% Ointment - TP 1 applic DAILY [facility] Administration Neomycin/Polymyxin/Hydrocortisone 6 drop 08/23/17 13:30 08/26/17 10:53 Cortisporin Otic Suspenstion - AU 08/30/17 13:29 6 drop BID [facility] Administration Nystatin 1 applic 08/11/17 10:00 08/26/17 10:54 Nystop Powder - TP 1 applic DAILY [facility] Administration Oxycodone HCl 5 mg 08/21/17 14:32 Roxicodone - PO Q4H PRN PAIN LEVEL 4 - 6 Oxycodone HCl 10 mg 08/21/17 14:32 08/26/17 06:22 Roxicodone - PO 10 mg Q4H PRN Administration PAIN LEVEL 7 - 10 Polyethylene Glycol 17 gm 08/21/17 10:00 08/26/17 10:54 Miralax (For Daily Use) - PO Not Given DAILY [facility] Rivaroxaban 15 mg 08/16/17 18:00 08/25/17 18:01 Xarelto - PO 15 mg DAILY@1800 [facility] Administration Silver Sulfadiazine 1 applic 08/17/17 12:00 08/26/17 10:53 Silvadene - TP 1 applic BID [facility] Administration Tamsulosin HCl 0.4 mg 08/07/17 11:45 08/26/17 08:48 Flomax - PO 0.4 mg DAILY@0830 [facility] Administration Impression 1. CKD 2. KRUNAL 3. volume overload 4. morbid obesity 5. CAD 6. cellulitis 7. s/p fall 8. a-fib 9. DM 10. hypothyroidism 11. HLD 12. CHF 13. s/p leg fracture 14. hyperkalemia 15. constipation Plan - cont with PO lasix - monitor renal function - cont physical therapy per medical team - monitor volume status - volume status is improved - renal function is stable - avoid nephrotoxic agents - renal diet
[2017-08-27 07:16] VITALS: BMI 65.7
== END 2017-08-26 17:03 | DRG 682 ==
LOC: JER 16:54 → JERBED 22:14 → UNDOADMIN 23:24 → J4W 08-07 03:00 → J6S 08-13 17:53
PROVIDERS: ADMIT Internal Medicine; ATTEND Internal Medicine
PROC: 0T9B70Z Drainage of Bladder with Drainage Device, Via Natural or Artificial Opening (ICD-10-PCS; 2017-08-06)
PROC: 5A09457 Assistance with Respiratory Ventilation, 24-96 Consecutive Hours, Continuous Positive Airway Pressure (ICD-10-PCS; 2017-08-11)
PROC: 5A09557 Assistance with Respiratory Ventilation, Greater than 96 Consecutive Hours, Continuous Positive Airway Pressure (ICD-10-PCS; principal; 2017-08-15)
PROC: 5A09357 Assistance with Respiratory Ventilation, Less than 24 Consecutive Hours, Continuous Positive Airway Pressure (ICD-10-PCS; 2017-08-26)
DX: N17.9 Acute kidney failure, unspecified (principal); I50.33 Acute on chronic diastolic (congestive) heart failure; I13.0 Hypertensive heart and chronic kidney disease with heart failure and stage 1 through stage 4 chronic kidney disease, or unspecified chronic kidney disease; E66.2 Morbid (severe) obesity with alveolar hypoventilation; Z68.44 Body mass index [BMI] 60.0-69.9, adult; I82.5Z1 Chronic embolism and thrombosis of unspecified deep veins of right distal lower extremity; L03.115 Cellulitis of right lower limb; N39.0 Urinary tract infection, site not specified; L97.819 Non-pressure chronic ulcer of other part of right lower leg with unspecified severity; T81.32XA Disruption of internal operation (surgical) wound, not elsewhere classified, initial encounter; R33.9 Retention of urine, unspecified; B37.2 Candidiasis of skin and nail; I11.0 Hypertensive heart disease with heart failure; E11.22 Type 2 diabetes mellitus with diabetic chronic kidney disease; E87.5 Hyperkalemia; I25.10 Atherosclerotic heart disease of native coronary artery without angina pectoris; N18.3 Chronic kidney disease, stage 3 (moderate); B95.62 Methicillin resistant Staphylococcus aureus infection as the cause of diseases classified elsewhere; I48.2 Chronic atrial fibrillation; E03.9 Hypothyroidism, unspecified; I27.20 Pulmonary hypertension, unspecified; Z95.5 Presence of coronary angioplasty implant and graft; Z87.891 Personal history of nicotine dependence; Z79.4 Long term (current) use of insulin; G62.9 Polyneuropathy, unspecified; Z79.01 Long term (current) use of anticoagulants; M54.5 Low back pain; M10.9 Gout, unspecified; E78.5 Hyperlipidemia, unspecified; D53.9 Nutritional anemia, unspecified; I25.2 Old myocardial infarction; N62 Hypertrophy of breast; I87.2 Venous insufficiency (chronic) (peripheral); J44.9 Chronic obstructive pulmonary disease, unspecified; K62.3 Rectal prolapse; Y83.8 Other surgical procedures as the cause of abnormal reaction of the patient, or of later complication, without mention of misadventure at the time of the procedure; I87.8 Other specified disorders of veins; H60.8X3 Other otitis externa, bilateral; B35.6 Tinea cruris
CPT/HCPCS: 36415; 71045-TC-FY; 73610-TC-LT-FY; 73630-TC-LT; 76775-TC; 76856-TC; 80048; 80053; 81003; 81015; 82310; 82436; 82550; 82570; 82607; 82728; 82746; 82962; 83540; 83550; 83735; 83880; 83970; 84100; 84133; 84300; 84484; 84540; 85025; 85027; 85610; 85730; 87077; 87086; 93005; 93010; 94640; 94660; 97161-GP; 99284-25; E1399; G0480; J1644; J7620

== ENCOUNTER 2017-08-26 17:59 | Emergency (ER) | payer OTHER, BC ==
[2017-08-26 18:35] VITALS: BMI 65.7
--- NOTE | 2017-08-26 18:40 | PDOC ---
History of Present Illness - History of Present Illness Initial Comments: 08/26/17 18:41 Mr. Pradhan is a 61 yo male w/ pmh of HTN, CAD, DM, DEXx2, DVT, diastolic CHF, afib with RVR, CKD stage 3, morbid obesity, LE ulcers who presents from [place] after discharge earlier today as [place] did not have bipap machine patient required. Allergies: Sulfa antibiotics <Eric Luz - Last Filed: 08/26/17 21:33> <Garrett Stephenson - Last Filed: 08/27/17 08:49> <Ondina Winslow - Last Filed: 08/28/17 10:00> - General Chief Complaint: Shortness of Breath Stated Complaint: RE-VISIT Time Seen by Provider: 08/26/17 18:40 Past History - Past Medical History Anemia: No Asthma: No Cancer: No Cardiac Disorders: Yes (CAD, A-FIB) CVA: No COPD: No CHF: Yes DVT: Yes Dementia: No Diabetes: Yes GI Disorders: No Disorders: No HTN: Yes Hypercholesterolemia: Yes Liver Disease: No Seizures: No Thyroid Disease: Yes (hypothyroid) - Surgical History Abdominal Surgery: No Appendectomy: No Cardiac Surgery: Yes (x 2 stents 07/2015) Cholecystectomy: No Lung Surgery: No Neurologic Surgery: No Orthopedic Surgery: Yes (Right middle toe, Left Ankle fracture) - Immunization History Immunization Up to Date: Yes - Suicide/Smoking/Psychosocial Hx Smoking Status: No Smoking History: Former smoker Have you smoked in the past 12 months: No Number of Cigarettes Smoked Daily: 0 If you are a former smoker, when did you quit?: 1992 Information on smoking cessation initiated: No 'Breaking Loose' booklet given: 09/05/15 Hx Alcohol Use: No Drug/Substance Use Hx: No Substance Use Type: None Hx Substance Use Treatment: No <Eric Luz - Last Filed: 08/26/17 21:33> <Garrett Stephenson - Last Filed: 08/27/17 08:49> <Ondina Winslow - Last Filed: 08/28/17 10:00> - Past Medical History Allergies/Adverse Reactions: Allergies Allergy/AdvReac Type Severity Reaction Status Date / Time Sulfa (Sulfonamide Allergy Intermediate Rash Verified 08/26/17 18:28 Antibiotics) Home Medications: Ambulatory Orders Albuterol 2.5/Ipratropium 0.5 [Duoneb -] 1 neb NEB Q4H PRN 08/06/17 Atenolol [Tenormin] 100 mg PO BID 08/06/17 Atorvastatin Calcium 80 mg PO HS 08/06/17 Bisacodyl 10 mg PO DAILY 08/06/17 Clotrimazole 15 gm TP DAILY 08/06/17 Collagenase Clostridium Hist. [Santyl -] 1 applic TP DAILY 08/06/17 Diphenhydramine HCl [Benadryl Capsule -] 50 mg PO DAILY 08/06/17 Febuxostat [Uloric -] 40 mg PO DAILY 08/06/17 Furosemide [Lasix] 80 mg PO BID 08/06/17 Glipizide 10 mg PO BID 08/06/17 Insulin (Novolog) [Novolog -] 0 units SQ AC 08/06/17 Insulin Glargine,Hum.rec.anlog [Lantus] 80 unit SQ HS 08/06/17 Ipratropium/Albuterol Sulfate [Iprat-Albut 0.5-3(2.5) mg/3 ml] 3 ml IH Q6H 08/06 Levothyroxine [Synthroid -] 100 mcg PO DAILY 08/06/17 Linaclotide [Linzess] 290 mcg PO DAILY 08/06/17 Liraglutide [Victoza -] 1.8 mg SQ DAILY 08/06/17 Mupirocin Ointment [Bactroban 2% Ointment -] 1 applic TP DAILY 08/06/17 Oxycodone HCl 10 mg PO Q4H PRN 08/06/17 Oxycodone HCl/Acetaminophen [Percocet 5-325 mg Tablet] 2 tab PO HS 08/06/17 Polyethylene Glycol 3350 [Miralax 119 gm Btl -] 17 gm PO BID 08/06/17 Pramoxine HCl/Calamine [Calamine Medicated Lotion] 177 ml TP DAILY 08/06/17 Rivaroxaban [Xarelto -] 15 mg PO DAILY 08/06/17 metroNIDAZOLE 0.75% GEL [Metrogel 0.75% Gel -] 1 applic TP BID 08/06/17 Review of Systems - Review of Systems Comments:: 08/26/17 18:43 GENERAL/CONSTITUTIONAL: No fever or chills. No weakness. HEAD, EYES, EARS, NOSE AND THROAT: No change in vision. No ear pain or discharge. No sore throat. CARDIOVASCULAR: No chest pain or shortness of breath while on baseline bipap RESPIRATORY: No cough, wheezing, or hemoptysis. GASTROINTESTINAL: No nausea, vomiting, diarrhea or constipation. GENITOURINARY: No dysuria, frequency, or change in urination. MUSCULOSKELETAL: No joint or muscle swelling or pain. No neck or back pain. SKIN: No rash NEUROLOGIC: No headache, vertigo, loss of consciousness, or change in strength/ sensation. ENDOCRINE: No increased thirst. No abnormal weight change HEMATOLOGIC/LYMPHATIC: No anemia, easy bleeding, or history of blood clots. ALLERGIC/IMMUNOLOGIC: No hives or skin allergy. <Eric Luz - Last Filed: 08/26/17 21:33> *Physical Exam - Vital Signs Last Vital Signs Temp Pulse Resp BP Pulse Ox 97.5 F L 86 20 113/62 91 L 08/26/17 18:30 08/26/17 18:30 08/26/17 18:30 08/26/17 18:30 08/26/17 18:30 - Physical Exam Comments: 08/26/17 18:43 GENERAL: +Morbidly obese. Awake, alert, and fully oriented, in no acute distress HEAD: No signs of trauma, normocephalic, atraumatic EYES: PERRLA, EOMI, sclera anicteric, conjunctiva clear ENT: Auricles normal inspection, hearing grossly normal, nares patent, oropharynx clear without exudates. Moist mucosa NECK: Normal ROM, supple, no lymphadenopathy, JVD, or masses LUNGS: No distress, speaks full sentences, clear to auscultation bilaterally HEART: Regular rate and rhythm, normal S1 and S2, no murmurs, rubs or gallops, peripheral pulses normal and equal bilaterally. ABDOMEN: Soft, nontender, normoactive bowel sounds. No guarding, no rebound. No masses EXTREMITIES: +LLE in orthopedic hardware. Normal inspection, Normal range of motion, no edema. No clubbing or cyanosis. NEUROLOGICAL: Cranial nerves II through XII grossly intact. Normal speech, no focal sensorimotor deficits SKIN: Warm, Dry, normal turgor, no rashes or lesions noted. <Eric Luz - Last Filed: 08/26/17 21:33> - Vital Signs Last Vital Signs Temp Pulse Resp BP Pulse Ox 97.5 F L 74 20 113/62 100 08/26/17 18:30 08/27/17 00:31 08/26/17 18:30 08/26/17 18:30 08/27/17 07:17 <Garrett Stephenson - Last Filed: 08/27/17 08:49> - Vital Signs Last Vital Signs Temp Pulse Resp BP Pulse Ox 97.9 F 64 24 115/69 100 08/27/17 08:56 08/27/17 08:56 08/27/17 08:56 08/27/17 08:56 08/27/17 08:56 <Ondina Winslow - Last Filed: 08/28/17 10:00> ED Treatment Course - Medications Given in the ED: ED Medications Discontinued Medications Generic Name Dose Route Start Last Admin Trade Name Freq PRN Reason Stop Dose Admin Atorvastatin Calcium 80 mg 08/26/17 20:33 08/26/17 22:11 Lipitor - PO 08/26/17 20:34 80 mg HS ONE Administration Bisacodyl 10 mg 08/26/17 20:33 08/26/17 22:11 Dulcolax - PO 08/26/17 20:34 10 mg DAILY ONE Administration Diphenhydramine HCl 50 mg 08/26/17 20:33 08/26/17 22:11 Benadryl - PO 08/26/17 20:34 50 mg DAILY ONE Administration Levothyroxine Sodium 100 mcg 08/26/17 20:33 08/26/17 22:12 Synthroid - PO 08/26/17 20:34 100 mcg ONCE ONE Administration Oxycodone/Acetaminophen 2 combo 08/26/17 20:33 08/26/17 22:11 Percocet 5/325 - PO 08/26/17 20:34 2 combo HS ONE Administration Rivaroxaban 15 mg 08/26/17 20:33 08/26/17 22:12 Xarelto - PO 08/26/17 20:34 15 mg DAILY ONE Administration <Garrett Stephenson - Last Filed: 08/27/17 08:49> - Medications Given in the ED: ED Medications Discontinued Medications Generic Name Dose Route Start Last Admin Trade Name Naomy PRN Reason Stop Dose Admin Atenolol 100 mg 08/26/17 22:00 08/27/17 09:15 Tenormin - PO 100 mg BID NEIL Administration Atorvastatin Calcium 80 mg 08/26/17 20:33 08/26/17 22:11 Lipitor - PO 08/26/17 20:34 80 mg HS ONE Administration Bisacodyl 10 mg 08/26/17 20:33 08/26/17 22:11 Dulcolax - PO 08/26/17 20:34 10 mg DAILY ONE Administration Diphenhydramine HCl 50 mg 08/26/17 20:33 08/26/17 22:11 Benadryl - PO 08/26/17 20:34 50 mg DAILY ONE Administration Febuxostat 40 mg 08/27/17 10:00 08/27/17 09:15 Uloric - PO 40 mg DAILY NEIL Administration Furosemide 80 mg 08/26/17 22:00 08/27/17 09:14 Lasix - PO 80 mg BID NEIL Administration Levothyroxine Sodium 100 mcg 08/26/17 20:33 08/26/17 22:12 Synthroid - PO 08/26/17 20:34 100 mcg ONCE ONE Administration Liraglutide 1.8 mg 08/27/17 07:00 08/27/17 07:10 Victoza - SQ 1.8 mg DAILY@0700 NEIL Administration Oxycodone/Acetaminophen 2 combo 08/26/17 20:33 08/26/17 22:11 Percocet 5/325 - PO 08/26/17 20:34 2 combo HS ONE Administration Polyethylene Glycol 17 gm 08/26/17 22:00 08/27/17 09:22 Miralax (For Daily Use) - PO Not Given BID NEIL Rivaroxaban 15 mg 08/26/17 20:33 08/26/17 22:12 Xarelto - PO 08/26/17 20:34 15 mg DAILY ONE Administration <Ondina Winslow - Last Filed: 08/28/17 10:00> Medical Decision Making - Medical Decision Making 08/26/17 18:56 Mr. Pradhan presents as [facility] today did not have bipap required for baseline care. Plan for patient to be held until AM. <Eric Luz - Last Filed: 08/26/17 21:33> - Medical Decision Making 08/27/17 08:49 was notified [facility] now has bipap equip[ment will dc back to [facility] <Garrett Stephenson - Last Filed: 08/27/17 08:49> - Medical Decision Making 08/27/17 02:[address] Becerra at shift change. Awaiting BiPAP at [facility]. Patient's regular meds have been ordered. <Ondina Winslow - Last Filed: 08/28/17 10:00> *DC/Admit/Observation/Transfer <Eric Luz - Last Filed: 08/26/17 21:33> - Discharge Dispostion Decision to Admit order: No <Garrett Stephenson - Last Filed: 08/27/17 08:49> <Ondina Winslow - Last Filed: 08/28/17 10:00> Diagnosis at time of Disposition: BiPAP (biphasic positive airway pressure) dependence - Discharge Dispostion Disposition: [facility] Condition at time of disposition: Stable - Referrals Referrals: Basil Harrington MD [Primary Care Provider] - - Patient Instructions - Post Discharge Activity
--- NOTE | 2017-08-26 18:46 | PDOC ---
Attending Attestation - HPI HPI: 08/26/17 18:50 The patient is a 61 year old male, with a significant PMH of hypertension, coronary artery disease, diabetes mellitus, DVT, DEXx2, diastolic congestive heart failure, atrial fibrillation with RVR, CKD stage 3, morbid obesity, LE ulcers who presents to the emergency department from [facility] [facility] s/p discharge earlier today as the [place] [facility] did not have the bipap required. The patient denies chest pain, headache and dizziness. Denies fever, chills, nausea, vomit, diarrhea and constipation. Denies dysuria, frequency, urgency and hematuria. Allergies: Sulfa (sulfonamide antibiotics) Documentation prepared by Keith Phan, acting as medical service representative for Ondina Winslow MD. <Keith Phan - Last Filed: 08/26/17 18:51> - Resident Resident Name: Eric Luz - ED Attending Attestation I have performed the following: I have examined & evaluated the patient, The case was reviewed & discussed with the resident, I agree w/resident's findings & plan, Exceptions are as noted - Physicial Exam PE: GENERAL: Awake, alert, and fully oriented, in no acute distress. Morbidly obese. HEAD: No signs of trauma EYES: PERRLA, EOMI, sclera anicteric, conjunctiva clear ENT: Auricles normal inspection, hearing grossly normal, nares patent, oropharynx clear without exudates. Moist mucosa NECK: Normal ROM, supple, no lymphadenopathy, JVD, or masses LUNGS: Breath sounds equal, clear to auscultation bilaterally. No wheezes, and no crackles HEART: Regular rate and rhythm, normal S1 and S2, no murmurs, rubs or gallops ABDOMEN: Soft, nontender, normoactive bowel sounds. No guarding, no rebound. No masses EXTREMITIES: +Ex-fix to LLE. Remainder of extremities with normal range of motion, no edema. No clubbing or cyanosis. No cords, erythema, or tenderness NEUROLOGICAL: Cranial nerves II through XII grossly intact. Motor and sensation grossly intact. SKIN: Warm, Dry, normal turgor, no rashes or lesions noted. - Medical Decision Making No acute process at present, no labs indicated. Will hold in ED pending BiPAP setup in [place]. <Ondina Winslow - Last Filed: 08/26/17 23:48>
[2017-08-26] MEDS ORDERED: ATORVASTATIN CA 80 MG TABLET (FP) PO ONE (20:33)
[2017-08-26] MEDS ORDERED: BISACODYL 5 MG TABLET.DR (FP) PO ONE (20:33)
[2017-08-26] MEDS ORDERED: oxyCODONE HCL 5 MG TABLET PO PRN (20:33)
[2017-08-26] MEDS ORDERED: ALBUTEROL SO4 2.5/IPRATROPIUM 0.5 INH SOL 3 ML VIAL.NEB. NEB PRN (20:33)
[2017-08-26] MEDS ORDERED: RIVAROXABAN 15 MG TABLET PO ONE (20:33)
[2017-08-26] MEDS ORDERED: diphenhydrAMINE HCL 50 MG CAPSULE PO ONE (20:33)
[2017-08-26] MEDS ORDERED: LEVOTHYROXINE NA 100 MCG TABLET (FP) PO ONE (20:33)
[2017-08-26] MEDS ORDERED: diphenhydrAMINE HCL 25 MG CAPSULE (FP) PO ONE (21:59)
[2017-08-26] MEDS ORDERED: LEVOTHYROXINE NA 25 MCG TABLET (FP) ONE (21:59)
[2017-08-26] MEDS ORDERED: ATORVASTATIN CA 80 MG TABLET (FP) ONE (22:00)
[2017-08-26] MEDS ORDERED: BISACODYL 5 MG TABLET.DR (FP) ONE (22:02)
[2017-08-26] MEDS: FUROSEMIDE 40 MG TABLET (FP) PO SCH (22:12)
[2017-08-26] MEDS: POLYETHYLENE GLYCOL 3350 119 GM BTL PO SCH (22:12)
[2017-08-26] MEDS: ATENOLOL 50 MG TABLET (FP) PO SCH (22:12)
[2017-08-26] MEDS ORDERED: FUROSEMIDE 40 MG TABLET (FP) ONE (22:16)
[2017-08-27] MEDS ORDERED: LIRAGLUTIDE 0.6 MG/0.1 ML PEN.INJCTR SQ SCH (07:00)
[2017-08-27 09:00] VITALS: BP 115/69; PULSE 64; TEMP 97.9
[2017-08-27] MEDS: FUROSEMIDE 40 MG TABLET (FP) PO SCH (09:14)
[2017-08-27] MEDS: ATENOLOL 50 MG TABLET (FP) PO SCH (09:15)
[2017-08-27] MEDS: POLYETHYLENE GLYCOL 3350 119 GM BTL PO SCH (09:22)
[2017-08-27] MEDS ORDERED: FEBUXOSTAT 40 MG TAB PO SCH (10:00)
== END 2017-08-27 09:23 ==
LOC: JER 17:59
DX: Z99.81 Dependence on supplemental oxygen (principal); Z99.89 Dependence on other enabling machines and devices; I25.10 Atherosclerotic heart disease of native coronary artery without angina pectoris; I13.0 Hypertensive heart and chronic kidney disease with heart failure and stage 1 through stage 4 chronic kidney disease, or unspecified chronic kidney disease; N18.3 Chronic kidney disease, stage 3 (moderate); I50.30 Unspecified diastolic (congestive) heart failure; Z95.5 Presence of coronary angioplasty implant and graft; E11.9 Type 2 diabetes mellitus without complications; Z79.4 Long term (current) use of insulin; I48.91 Unspecified atrial fibrillation; Z79.01 Long term (current) use of anticoagulants; L97.821 Non-pressure chronic ulcer of other part of left lower leg limited to breakdown of skin; L97.811 Non-pressure chronic ulcer of other part of right lower leg limited to breakdown of skin; E66.01 Morbid (severe) obesity due to excess calories; Z68.44 Body mass index [BMI] 60.0-69.9, adult
CPT/HCPCS: 99283-25